=== PATIENT | male | born 1965 | race Caucasian/White ===

== ENCOUNTER → 2017-12-06 14:21 | Outpatient (CLI) | payer OTHER, SELFPAY ==
[2017-12-06 17:38] LABS: Prostate Specific Antigen < 0.064 ng/mL (0.10-4.00)
== END ==
PROVIDERS: Family Provider Family Medicine; PCP Family Medicine; Visit Provider Urology
DX: Z85.46 Personal history of malignant neoplasm of prostate (principal)
CPT/HCPCS: 36415; 84153

== ENCOUNTER → 2018-01-10 15:24 | Outpatient (CLI) | payer OTHER, SELFPAY ==
--- NOTE | 2018-01-10 | DI.MRI.S_ITS ---
PROCEDURE: MR CERVICAL SPINE WO CON INDICATIONS: CERVICAL RADICULAPOTHY TECHNIQUE: Noncontrast sagittal T1 spin echo and T2 fast spin echo, sagittal STIR, foraminal oblique sagittal T2 fast spin echo, and axial gradient echo or T2 fast spin echo through the cervical spine. COMPARISON: [facility], [place], BONE SCAN WHOLE BODY, 08/27/2013, 12:42. [facility], , CERVICAL SPINE 2 OR 3 VIEWS, 08/08/2017, 14:15. FINDINGS: Image quality: Mild motion artifacts. Alignment and Curvature: There is normal bony alignment. Bone Marrow: There are degenerative endplate signal changes and scattered in cervical spine. Spinal Cord: Visualized spinal cord has normal size and signal. No cerebellar tonsillar herniation. Paraspinous Soft Tissues: No paravertebral masses. Prevertebral soft tissues are normal in thickness. C2-C3: Preserved disc height and mild disc desiccation. There is broad posterior disc bulge. Uncovertebral hypertrophy. The central canal is patent. No foraminal stenosis. C3-C4: Mild loss of disc height and mild disc desiccation. There is broad posterior disc bulge. Uncovertebral hypertrophy, more pronounced on the right. The central canal is mildly narrowed. Moderate right foraminal stenosis. No left foraminal stenosis. . C4-C5: Mild loss of disc height and mild disc desiccation. There is broad posterior disc bulge and disc osteophyte complex. Uncovertebral hypertrophy. The central canal is mildly narrowed. Moderate bilateral right foraminal stenosis. C5-C6: Mild loss of disc height and mild disc desiccation. There is broad posterior disc bulge and disc osteophyte complex. Uncovertebral hypertrophy. Mild bilateral facet arthropathy. The central canal is mildly narrowed. Moderate to severe bilateral right foraminal stenosis. C6-C7: Mild loss of disc height and mild disc desiccation. There is broad posterior disc bulge and disc osteophyte complex. Uncovertebral hypertrophy. The central canal is patent. Moderate to severe bilateral right foraminal stenosis. C7-T1: Normal appearance. IMPRESSION: 1. Multilevel degenerative disc disease and facet arthropathy as described. 2. Mild central canal stenosis at several levels. 3. Multilevel foraminal stenoses as described. Dictated by: Jesusita Atkinson M.D. on 01/10/2018 at 16:58 Approved by: Jesusita Atkinson M.D. on 01/10/2018 at 17:06
== END ==
PROVIDERS: Family Provider Family Medicine; PCP Family Medicine; Visit Provider Otolaryngology
DX: M50.11 Cervical disc disorder with radiculopathy, high cervical region (principal); M48.02 Spinal stenosis, cervical region
CPT/HCPCS: 72141

== ENCOUNTER → 2018-03-29 11:02 | Outpatient (CLI) | payer OTHER, SELFPAY ==
[2018-03-29 12:06] LABS: Add Manual Diff / Slide Review NO; Basophils Percent Auto 0.7 % (0-2); Hematocrit 43.2 % (41-53); Hemoglobin 14.7 g/dL (13.5-17.5); Lymphocytes Percent Auto 29.8 % (25-40); Mean Corpuscular Volume 94.1 fL (80-100); Monocytes Percent Auto 8.8 % (3-14); Neutrophils Absolute Auto 3800 /uL (3000-5900); Neutrophils Percent Auto 56.7 % (50-75); Platelet Count 183 X10^3/uL (150-400); Red Blood Cell Count 4.59 X10^6/uL (4.5-5.9); Red Cell Distribution Width 12.8 % (11.6-14.8); White Blood Cell Count 6.8 X10^3/uL (4.5-11.0)
[2018-03-29 12:20] LABS: Alanine Aminotransferase 41 IU/L (21-72); Albumin 4.3 g/dL (3.5-5.0); Albumin Globulin Ratio 1.7 (1.0-2.8); Alkaline Phosphatase 53 U/L (38-126); Aspartate Aminotransferase 29 IU/L (17-59); BUN Creatinine Ratio 13.1 (6-22); Bilirubin Total 0.6 mg/dL (0.2-1.3); Blood Urea Nitrogen 17 mg/dL (9-20); Calcium 9.8 mg/dL (8.4-10.2); Carbon Dioxide 31 mmol/L (22-32); Chloride 103 mmol/L (98-107); Cholesterol 155 mg/dL (140-199); Globulin 2.5 g/dL (1.7-4.1); Glucose 96 mg/dL (70-100); HDL Cholesterol 60 mg/dL (40-60); HEMOLYSIS < 15 (0-50); LDL Cholesterol Calculated 76 mg/dL (<100); Potassium 4.4 mmol/L (3.4-5.1); Sodium 144 mmol/L (137-145); Total Protein 6.8 g/dL (6.3-8.2); Triglycerides 93 mg/dL (35-150)
[2018-03-29 12:49] LABS: Thyroid Stimulating Hormone 5.33 uIU/mL (0.47-4.68)
== END ==
PROVIDERS: Family Provider Urology; PCP Family Medicine; Visit Provider Family Medicine
DX: I10 Essential (primary) hypertension (principal); Z85.46 Personal history of malignant neoplasm of prostate
CPT/HCPCS: 36415; 80053; 80061; 84443; 85025

== ENCOUNTER → 2018-06-05 11:24 | Outpatient (CLI) | payer OTHER, SELFPAY ==
[2018-06-05 12:53] LABS: Free T3, Triiodothyronine Free 3.64 pg/mL (2.77-5.27); Free T4, Direct Thyroxine 0.86 ng/dL (0.78-2.19)
[2018-06-05 13:07] LABS: Prostate Specific Antigen < 0.064 ng/mL (0.10-4.00)
[2018-06-05 13:07] LABS: Thyroid Stimulating Hormone 3.48 uIU/mL (0.47-4.68)
== END ==
PROVIDERS: PCP Family Medicine; Visit Provider Urology
DX: Z85.46 Personal history of malignant neoplasm of prostate (principal); R79.89 Other specified abnormal findings of blood chemistry
CPT/HCPCS: 36415; 84153; 84439; 84443; 84481

== ENCOUNTER 2018-07-18 11:42 | Day surgery (SDC) | payer OTHER, SELFPAY ==
--- NOTE | 2018-07-18 | PATH_ITS ---
[facility] Accession Number: [id number] . 01 Material submitted: . PART A: RIGHT COLON POLYP AT 85CM PART B: SIGMOID POLYP AT 20CM X2 . 02 Diagnosis: A. Right Colon, Polyp at 85 cm, Biopsy: Sessile serrated adenoma. . B. Sigmoid Colon, Polyp at 20 cm x2, Biopsies: Hyperplastic polyps. MRV/07/19/2018 . 02 Electronically signed: . Vickie Velasco MD, Pathologist NPI- [id number] . 01 Gross description: . Received two formalin-filled containers, both labeled with the patient's name: . A. In a container labeled right colon polyp at 85 cm, are two fragments of tissue which range in size from 0.2 cm to 0.4 cm. The specimen is entirely submitted in cassette A. B. In a container labeled sigmoid polyp at 20 cm x2, are two fragments of tissue which range in size from 0.3 cm to 0.4 cm. The specimen is entirely submitted in cassette B. ([id number]) /FRR . 02 Pathologist provided ICD-10: D12.6 . 02 CPT . 476511, [id number] Performed at: [address] [facility] [address], [place], [place] [id number] MD Ulices Arana MD Phone: [phone] Performed at: 02 [facility] [address] [place], [place] [id number] MD Vickie Velasco MD Phone: [phone]
[2018-07-18 12:05] VITALS: BP 125/85; PULSE 77; RESP 16; TEMP 36.6; O2SAT 97; BMI 27.6
[2018-07-18] MEDS: SODIUM CHLORIDE 0.9% 1,000 ML 200 ML IV (12:14)
--- NOTE | 2018-07-18 12:31 | P.HP_ITS ---
History of Present Illness Date Patient Seen: 07/18/18 Time Patient Seen: 12:29 Chief complaint: colonoscopy [id number] Narrative: 53-year-old male with personal history of colon polyps whose last endoscopy was approximately 6 years ago. He presents now for surveillance. On further history today he denies any recent gastrointestinal symptoms. No nausea , vomiting, abdominal pain, unintended weight loss, change in bowel habits, diarrhea, constipation, melena, hematochezia, or bright red blood per rectum. Patient History Medical History Colon polyps (Chronic ~2009) Elevated PSA (Chronic ~2012) Meralgia paresthetica (Chronic) Prostate cancer (Chronic ~2013) Seasonal allergies (Chronic) Surgical History Anesthesia (Resolved) History of vasectomy (Resolved) Status post radical cystoprostatectomy (10/13/13) Family & Social History Family History: Reviewed 07/18/18 by Montez Sanz MD Social History: household members spouse Tobacco & Substance use: Smoking Status Current some day smoker Meds Home Medications Medication Instructions Recorded Confirmed Type temazepam 30 mg capsule 30 mg PO .HSP #30 cap 05/13/18 07/18/18 Rx gabapentin 100 mg PO DAILY 07/18/18 07/18/18 History Allergies Allergy/AdvReac Type Severity Reaction Status Date / Time Penicillins [PENICILLINS] Allergy Mild Verified 04/12/18 16:00 Review of Systems Review of Systems All systems reviewed & are unremarkable except as noted in HPI and below Exam Vital Signs (past 8 hours): - 07/18/18 12:05 Temperature 97.9 F Pulse Rate 77 Respiratory Rate 16 Blood Pressure 125/85 Pulse Oximetry 97 Oxygen Delivery Method Room Air Narrative Exam Narrative: Well-nourished well-developed male in no acute distress. Alert oriented x3 Sclera nonicteric Regular rate and rhythm Abdomen soft, nondistended, nontender Extremities show no clubbing or cyanosis Objective Labs Labs: No recent laboratory or radiographic studies for review Assessment & Plan Plan: Assessment/Plan Narrative: 53-year-old male with personal history of colon polyps requiring colorectal surveillance for such. I recommended colonoscopy. Technical details of the procedure were explained. Risks, benefits, alternatives were discussed. Risks including but not limited to sedation, aspiration, bleeding, pain, missed lesion , incomplete examination, need for further radiographic studies, colonic perforation, need for major abdominal surgery, and all attendant risks of major surgery were discussed in detail. All questions were answered to his satisfaction, and he voiced understanding. Consent was placed on the chart. We will proceed as above.
--- NOTE | 2018-07-18 12:31 | PM.PREOP ---
Pre-operative Note Interval Note History & Physical reviewed/Exam performed by Physician: Yes Changes to H&P: No H&P completed within 30 days and has changed as indicated here:: Patient seen and examined today. History and physical examination documented and placed on the chart. Obviously no changes in the last 60 min. Proceed with colonoscopy today as planned. ASA Class (for procedural sedation): II
[2018-07-18] MEDS: MIDAZOLAM 5 MG/5 ML VIAL IV (13:08)
[2018-07-18] MEDS: fentaNYL 250 MCG/5 ML INJ IV (13:08)
--- NOTE | 2018-07-18 13:17 | PM.OP.ENDO ---
Operative Date/Time/Diagnoses Date of procedure: 07/18/18 Time of procedure: 13:17 Pre-op diagnosis: Personal history of colon polyps Post-op diagnosis: other (Colon polyps and pandiverticulosis) Procedure & Clinicians Study performed: 1. Sedation per surgeon 2. Colonoscopy with cold forceps polypectomies Same procedure as scheduled: Yes Indications: 53-year-old male with personal history of colon polyps who last underwent colonoscopy 6 years ago. He requires surveillance. Colonoscopy is once again recommended. Surgeon: Montez Sanz Procedure Notes SCOAP/Timeout: Yes Procedure in detail: After obtaining informed consent, the patient was brought to the GI suite and placed in the left lateral decubitus position on the examination table. After placement of appropriate monitors, the patient was given incremental doses of Versed and Fentanyl until an appropriate level of sedation was achieved. A time out was held per SCOAP protocol. A digital rectal examination was performed and did not reveal any masses or obstructing lesions. The colonoscope was gently passed into the patient's anus and the entire colon navigated to the level of the cecum with minimal difficulty. Once in the cecum, the scope was withdrawn being sure to go before and beyond all mucosal folds and prominences and get an excellent examination. The findings are noted above. At the level of the rectal vault, the scope was retroflexed and the internal anal canal was examined. The scope was straightened and air aspirated from the colon. The instrument was removed from the patient's body and the procedure was concluded. The patient was allowed to awaken from sedation without difficulty and taken to the post-anesthesia care unit in good condition. Scope withdrawal time: 8:20 min Sedation minutes: 12 Findings: diverticulosis and polyp Specimen(s): other (1. Right colon polyp at 85 cm 2. Sigmoid colon polyps x2 at 20 cm) Complications: none Recommendations: Colonscopy in 5 years, High fiber diet and Will call with biopsy results Plan for aftercare: 1. Discharge home Follow up: as needed Disposition: PACU
[2018-07-18 13:20] VITALS: BP 130/79; PULSE 74; RESP 15; TEMP 36.3; O2SAT 93
[2018-07-18 13:50] VITALS: BP 114/74; PULSE 68; RESP 15; TEMP 36.2; O2SAT 94
== END 2018-07-18 14:05 | disposition home or self-care (01) ==
PROVIDERS: Family Provider Urology; PCP Family Medicine; Visit Provider Surgery
PROC: 0DJD8ZZ Inspection of Lower Intestinal Tract, Via Natural or Artificial Opening Endoscopic (ICD-10-PCS; CPT 45378; principal; 2018-07-18 13:00)
DX: Z86.010 Personal history of colon polyps (principal); K57.30 Diverticulosis of large intestine without perforation or abscess without bleeding; D12.5 Benign neoplasm of sigmoid colon; D12.6 Benign neoplasm of colon, unspecified; F17.210 Nicotine dependence, cigarettes, uncomplicated; G57.10 Meralgia paresthetica, unspecified lower limb
CPT/HCPCS: 45380; 99152; J2250; J3010

== ENCOUNTER → 2018-10-02 15:39 | Outpatient (CLI) | payer OTHER, SELFPAY ==
--- NOTE | 2018-10-02 15:42 | DI.RAD.S_ITS ---
PROCEDURE: XR HAND LT MIN 3V INDICATIONS: Pain. TECHNIQUE: 3 views of the hand(s) acquired. COMPARISON: None. FINDINGS: Bones: No fractures or dislocations. Carpal bones are normally aligned. No suspicious bony lesions. There is mild degenerative change of the first carpometacarpal joint. Soft tissues: No suspicious soft tissue calcifications. IMPRESSION: Mild degenerative changes at the left first carpometacarpal joint. No acute fracture or dislocation of the left hand identified. Consider followup radiographs in 7-10 days if there is continued clinical concern. Dictated by: Julio C Galvez M.D. on 10/02/2018 at 16:55 Approved by: Julio C Gavlez M.D. on 10/02/2018 at 16:59
--- NOTE | 2018-10-02 15:42 | DI.RAD.S_ITS ---
PROCEDURE: XR SACRUM COCCYX MIN 2V INDICATIONS: pain TECHNIQUE: 3 views of the sacrum and coccyx acquired. COMPARISON: , MR, PELVIS W&WO CONTRAST, 03/22/2017, 18:06. FINDINGS: Bones: No fractures or dislocations. There is mild degenerative change of the left lateral acetabulum. There is multilevel facet arthropathy of the imaged lower lumbar spine. Soft tissues: Visualized bowel gas pattern is nonobstructive. Multiple linear radiopaque densities projecting over the lower pelvis, most consistent with prior prostate radiation seed therapy or postsurgical change. IMPRESSION: 1. No acute osseous abnormality of the imaged sacrum and coccyx. Consider followup radiographs in 7-10 days if there is continued clinical concern. 2. Multiple linear radiopaque densities projecting over the lower pelvis, most consistent with prior prostate radiation seed therapy or postsurgical change. Dictated by: Julio C Galvez M.D. on 10/02/2018 at 16:59 Approved by: Julio C Galvez M.D. on 10/02/2018 at 17:04
== END ==
PROVIDERS: PCP Family Medicine; Visit Provider Family Medicine
DX: M79.642 Pain in left hand (principal); M18.12 Unilateral primary osteoarthritis of first carpometacarpal joint, left hand; M16.12 Unilateral primary osteoarthritis, left hip; M47.816 Spondylosis without myelopathy or radiculopathy, lumbar region
CPT/HCPCS: 72220; 73130

== ENCOUNTER → 2018-10-10 18:45 | Outpatient (CLI) | payer OTHER, SELFPAY ==
--- NOTE | 2018-10-10 18:47 | DI.MRI.S_ITS ---
PROCEDURE: MR HAND LT WO CON INDICATIONS: pain TECHNIQUE: Noncontrast oblique coronal T1 spin echo and T2 fast spin echo with fat saturation, axial and sagittal T2 fast spin echo with fat saturation, through the thumb. COMPARISON: [facility], [place], XR HAND LT MIN 3V, 10/02/2018, 15:46. FINDINGS: Image quality: Diagnostic. Bones: No acute fracture, dislocation, or suspicious osseous lesion is identified involving the osseous structures of the left hand. There are mild/moderate degenerative changes present involving the basal joint of the thumb. Additional degenerative changes of the wrist are noted to be mild in nature. No substantial joint effusions are present. However, there may be a very small effusion evident involving the 1st carpometacarpal joint. Tendons: There is a thickening and increased signal identified involving the extensor tendons of the 1st compartment with mild peritendinous edema. No fluid is contained within their tendon sheaths. Mild increased signal is noted involving the extensor carpi ulnaris tendon at the tip of the ulnar styloid process. Otherwise, the remainder of the extensor tendons are unremarkable. The flexor tendons appear to be within normal limits. However, there is slight increased signal identified involving the flexor tendon sheaths of the 1st and 2nd digits. Slight convex bulge of the carpal tunnel is evident. Other soft tissues: No soft tissue masses or drainable fluid collections are evident. Areas of subcutaneous edema are noted about the base of the thumb and near the ulnar styloid process. The ulnar nerve is unremarkable as it passes through Guyon's canal. The median nerve is within normal limits within the carpal tunnel. The scapholunate and lunotriquetral ligaments are grossly unremarkable. There is irregularity at the radial attachment of the triangular fibrocartilage disc. This may represent a tear. No large ganglion cysts are evident. No significant atrophy of the intrinsic muscles of the hand are appreciated. Edema involving the thenar muscles to a small degree and the 1st dorsal interossei muscle. IMPRESSION: 1. Mild to moderate degenerative changes involving the 1st carpometacarpal joint with an associated small joint effusion. 2. Tendinopathy involving the 1st extensor compartment. Please correlate clinically for de Quervain's tenosynovitis. 3. Subtle edema involving the thenar muscles and the 1st dorsal interossei muscle may represent a muscle strain. An urgent process is felt to be less likely. 4. Mild extensor carpi ulnaris tendinopathy. 5. Probable small perforating tear involving the radial margin of the triangular fibrocartilage disc. Dictated by: Estuardo Villarreal M.D. on 10/11/2018 at 9:12 Approved by: Estuardo Villarreal M.D. on 10/11/2018 at 9:23
--- NOTE | 2018-10-10 18:47 | DI.MRI.S_ITS ---
PROCEDURE: MR LUMBAR SPINE WO CON INDICATIONS: pain TECHNIQUE: Noncontrast sagittal T1 spin echo and T2 fast echo, sagittal STIR, axial T1 and T2 fast spin echo through the lumbar spine. In cases with scoliosis, additional coronal T2 fast spin echo may be performed. COMPARISON: [facility], MR, L-SPINE WITHOUT CONTRAST, 05/16/2016, 8:41. [facility], MR, L-SPINE WITHOUT CONTRAST, 05/30/2011, 8:51. FINDINGS: Image quality: Excellent. Alignment and Curvature: There is normal bony alignment. Bone Marrow: Marrow is of normal overall signal. No acute vertebral body compression fractures. Spinal Cord: Conus medullaris terminates at the L1 level. Visualized cord demonstrates normal signal and size. Paraspinous Soft Tissues: No paravertebral masses. L1-L2: Normal appearance except for minimal disc height reduction and desiccation. L2-L3: Normal appearance except for minimal to mild disc height reduction and disc desiccation. L3-L4: Normal appearance except for mild degenerative facet osteoarthritis slightly greater on the right than the left, previously present. L4-L5: There is a minimal degree of degenerative disc reduction and desiccation. Facet osteoarthritis is mild and slightly greater on the left than the right with slight foraminal stenosis and no nerve root impingement visualized. No oil changer time L5-S1: Normal appearance except for a slight degree of facet degeneration without associated spinal or foraminal stenosis. IMPRESSION: The degenerative disc disease and facet osteoarthritis along the lumbosacral line appears to mild in severity without appreciable worsening from the comparison study from 05/16/16, and no disc herniation has developed. A source of new pain is not seen. No significant spinal or foraminal stenosis is found. Dictated by: Gurpreet Villa M.D. on 10/11/2018 at 8:28 Approved by: Gurpreet Villa M.D. on 10/11/2018 at 8:47
== END ==
PROVIDERS: PCP Family Medicine; Visit Provider Family Medicine
DX: M53.3 Sacrococcygeal disorders, not elsewhere classified (principal); M79.642 Pain in left hand; M18.12 Unilateral primary osteoarthritis of first carpometacarpal joint, left hand; M25.442 Effusion, left hand; M67.942 Unspecified disorder of synovium and tendon, left hand; M51.37 Other intervertebral disc degeneration, lumbosacral region; M47.817 Spondylosis without myelopathy or radiculopathy, lumbosacral region
CPT/HCPCS: 72148; 73218

== ENCOUNTER → 2018-11-11 15:59 | Outpatient (CLI) | payer OTHER, SELFPAY ==
--- NOTE | 2018-11-11 16:01 | DI.MRI.S_ITS ---
PROCEDURE: MR PELVIS WO CON INDICATIONS: pain in the tailbone TECHNIQUE: Noncontrast axial and coronal T1 spin echo and STIR through the lumbosacral plexus region. Optional contrast may be given, followed by axial and coronal T1 spin echo with fat saturation through the sacral plexus. COMPARISON: None. FINDINGS: Image quality: Excellent. Lumbosacral plexus: Superior to the piriformis muscles, the pre-plexal structures appear normal, including the lumbosacral trunk and S1 root. Just anterior to the piriformis muscles, the sacral plexus proper demonstrates normal morphology (lumbosacral trunk, S1 to S3 nerve roots). Inferior to the piriformis muscles, the sciatic nerves appear normal. Soft tissues: The piriformis muscles appear symmetric in size. No presacral masses. Rectum appears normal in caliber and wall thickness. No pathologic free pelvic fluid. No visualized adenopathy by size criteria. Bones: Marrow is normal in overall signal. IMPRESSION: A source of sacrococcygeal pain is not identified. A mass or inflammatory process involving the lumbosacral plexus or the presacral space is not seen. The rectum and adjacent sigmoid colon is well visualized and appears free of mass lesion. Dictated by: Gurpreet Villa M.D. on 11/11/2018 at 17:11 Approved by: Gurpreet Villa M.D. on 11/11/2018 at 17:12
== END ==
PROVIDERS: PCP Family Medicine; Visit Provider Family Medicine
DX: M53.3 Sacrococcygeal disorders, not elsewhere classified (principal)
CPT/HCPCS: 72195

== ENCOUNTER → 2018-11-19 10:21 | Outpatient (CLI) | payer OTHER, SELFPAY ==
[2018-11-19 11:57] LABS: Add Manual Diff / Slide Review NO; Basophils Absolute Auto 100 /uL (0-100); Basophils Percent Auto 0.9 % (0-2); Eosinophils Absolute Auto 200 /uL (0-450); Eosinophils Percent Auto 3.3 % (2-4); Hematocrit 44.7 % (41-53); Hemoglobin 15.1 g/dL (13.5-17.5); Lymphocytes Absolute Auto 1600 /uL (1100-4500); Lymphocytes Percent Auto 27.6 % (25-40); Mean Corpuscular HGB Conc 33.7 % (30-36); Mean Corpuscular Hemoglobin 32.2 PG (26-34); Mean Corpuscular Volume 95.5 fL (80-100); Monocytes Absolute Auto 500 /uL (0-900); Neutrophils Absolute Auto 3400 /uL (1500-7000); Neutrophils Percent Auto 60.2 % (50-75); Platelet Count 193 X10^3/uL (150-400); Red Blood Cell Count 4.67 X10^6/uL (4.5-5.9); Red Cell Distribution Width 13.4 % (11.6-14.8); White Blood Cell Count 5.7 X10^3/uL (4.5-11.0)
[2018-11-19 12:07] LABS: BUN Creatinine Ratio 13.8 (6-22); Blood Urea Nitrogen 18 mg/dL (9-20); Calcium 9.7 mg/dL (8.4-10.2); Carbon Dioxide 32 mmol/L (22-32); Chloride 100 mmol/L (98-107); Glucose 87 mg/dL (70-100); HEMOLYSIS < 15 (0-50); Potassium 4.4 mmol/L (3.4-5.1); Sodium 140 mmol/L (137-145)
== END ==
PROVIDERS: Family Provider Family Medicine; PCP Family Medicine; Visit Provider Physician Assistant
DX: Z01.818 Encounter for other preprocedural examination (principal); Z01.812 Encounter for preprocedural laboratory examination
CPT/HCPCS: 36415; 80048; 85025; 93005; 93010

== ENCOUNTER → 2019-01-03 10:55 | Outpatient (CLI) | payer OTHER, SELFPAY ==
[2019-01-03 13:23] LABS: Prostate Specific Antigen < 0.064 ng/mL (0.10-4.00)
== END ==
PROVIDERS: PCP Nurse Practitioner Adult Health; Visit Provider Urology
DX: Z85.46 Personal history of malignant neoplasm of prostate (principal)
CPT/HCPCS: 36415; 84153

== ENCOUNTER → 2019-05-27 09:08 | Outpatient (CLI) | payer OTHER, SELFPAY ==
[2019-05-27 10:40] LABS: Add Manual Diff / Slide Review NO; Basophils Absolute Auto 0 /uL (0-100); Basophils Percent Auto 0.7 % (0-2); Eosinophils Absolute Auto 200 /uL (0-450); Eosinophils Percent Auto 3.5 % (2-4); Hematocrit 43.4 % (41-53); Hemoglobin 14.8 g/dL (13.5-17.5); Lymphocytes Absolute Auto 1400 /uL (1100-4500); Lymphocytes Percent Auto 22.6 % (25-40); Mean Corpuscular HGB Conc 34.1 % (30-36); Mean Corpuscular Hemoglobin 32.4 PG (26-34); Monocytes Absolute Auto 500 /uL (0-900); Monocytes Percent Auto 7.3 % (3-14); Neutrophils Absolute Auto 4100 /uL (1500-7000); Neutrophils Percent Auto 65.9 % (50-75); Platelet Count 200 X10^3/uL (150-400); Red Blood Cell Count 4.57 X10^6/uL (4.5-5.9); White Blood Cell Count 6.2 X10^3/uL (4.5-11.0)
[2019-05-27 10:44] LABS: Alanine Aminotransferase 32 IU/L (<50); Albumin 4.5 g/dL (3.5-5.0); Albumin Globulin Ratio 1.6 (1.0-2.8); Alkaline Phosphatase 67 U/L (38-126); Aspartate Aminotransferase 29 IU/L (17-59); BUN Creatinine Ratio 16.9 (6-22); Bilirubin Total 0.3 mg/dL (0.2-1.3); Blood Urea Nitrogen 22 mg/dL (9-20); Calcium 9.5 mg/dL (8.4-10.2); Carbon Dioxide 30 mmol/L (22-32); Chloride 105 mmol/L (98-107); Cholesterol 173 mg/dL (140-199); Estimated Glomerular Filt Rate 57.7 mL/min (>60); Globulin 2.8 g/dL (1.7-4.1); Glucose 101 mg/dL (70-100); HDL Cholesterol 46 mg/dL (40-60); HEMOLYSIS < 15 (0-50); LDL Cholesterol Calculated 103 mg/dL (<100); Potassium 4.7 mmol/L (3.4-5.1); Sodium 143 mmol/L (137-145); Total Protein 7.3 g/dL (6.3-8.2); Triglycerides 120 mg/dL (35-150)
[2019-05-27 11:19] LABS: Prostate Specific Antigen < 0.064 ng/mL (0.10-4.00)
[2019-05-27 11:49] LABS: HIV 1 & 2 Ab/Ag 4th Gen Combo NEGATIVE (NEGATIVE)
== END ==
PROVIDERS: PCP Family Medicine; Visit Provider Family Medicine
DX: Z13.220 Encounter for screening for lipoid disorders (principal); Z85.46 Personal history of malignant neoplasm of prostate; Z11.4 Encounter for screening for human immunodeficiency virus [HIV]; I10 Essential (primary) hypertension
CPT/HCPCS: 36415; 80053; 80061; 84153; 84403; 85025; 87389

== ENCOUNTER → 2019-06-16 11:21 | Outpatient (CLI) | payer OTHER, SELFPAY ==
[2019-06-16 13:06] LABS: Free T3, Triiodothyronine Free 3.59 pg/mL (2.77-5.27); Free T4, Direct Thyroxine 0.88 ng/dL (0.78-2.19)
[2019-06-16 13:20] LABS: Thyroid Stimulating Hormone 2.14 uIU/mL (0.47-4.68)
== END ==
PROVIDERS: PCP Family Medicine; Visit Provider Family Medicine
DX: R53.83 Other fatigue (principal)
CPT/HCPCS: 36415; 84439; 84443; 84481

== ENCOUNTER 2019-07-07 08:15 | Outpatient (RCR) | payer OTHER, SELFPAY ==
--- NOTE | 2019-04-01 15:52 | PT.OPPOC ---
Current Diagnoses Unilateral primary osteoarthritis of first carpometacarpal joint, right hand (04/01/19) Unilateral primary osteoarthritis of first carpometacarpal joint, left hand (04/01/19) Visit Care Team Role Provider Type VALERY Antoine Primary Care Provider Non-Staff Specialty: Family Practice Address: [address] [place] [address], [address], [place], [address] Email: Bryan Cintron MD Attending Provider Physician Specialty: Orthopedic Surgery Address: [address] [place] [address], [place], [address] Email: [email or web address] Plan Of Care PT-OP-T Assessment and Plan Start: 04/01/19 12:15 Freq: Status: Active Protocol: Document 04/01/19 12:46 [facility] (Rec: 04/01/19 13:38 [facility] [id number]) Physical Therapy Assessment Rehab Potential Rehabilitation Potential Good Evaluation Complexity Number of Personal Factors/Comorbidities 3 or More Number of Body Systems Impaired 4 or More Clinical Presentation at Evaluation Evolving Impairments Impairments Activity Tolerance,Edema,Pain, ROM,Strength Goals Four Impairment Swelling in L Thenar [place] Short Term Goal (STG) Pt educated in joint protection and edema management techniques. STG Duration 04/05/19 Three Impairment Decreased L hand jd edwards Custodial Goal (LTG) Pt will demonstrate normal jd edwards strength without pain. LTG Duration 05/13/19 Two Impairment Constant L thumb pain hindering activity tolerance. Short Term Goal (STG) Decrease pain by 50% (1/10 at rest & 2-3/10 with palpation). STG Duration 04/29/19 Surgical Brace Maker Goal (LTG) Eliminate L thumb pain at rest and mild discomfort (1-2/10) with weightbearing activities. LTG Duration 05/13/19 One Impairment Lacks appropriate self care program Surgical Brace Maker Goal (LTG) Pt will be independent with a self care HEP. LTG Duration 05/27/19 Assessment Summary Assessment Pt presents with soft tissue dysfunction of the L Thenar [place], 1st extensor compartment, 1st dorsal interossei muscle, extensor carpi ulnaris tendon and soft tissue at the snuff box. He has some indication of de Quervain's tenosynovitis. He has mechanical dysfunction of the L CMC joint with pain. Swelling is visibly present with pain on palpation of the soft tissue and when pressure is applied at the thumb CMC joint. His wrist mobility is slightly limited with flex/ext . The pt will benefit from skilled physical therapy to decrease swelling and therapeutic exercise to improve CMC joint stability and reduce pain. Pt will require use of a custom thumb splint or [id number] splint to help minimize stress at the joint. Physical Therapy Plan Frequency and Duration Frequency of Treatment 2x/Week Plan of Care Start Date 04/01/19 Plan of Care End Date 05/27/19 Therapeutic Interventions Therapeutic Interventions Home Exercise Program,Joint Mobilizations,Manual Therapy, Patient/Caregiver Education, Self-Care/Home Management,Soft Tissue Mobilization,Taping, Therapeutic Exercises Modalities Cold Pack/Ice Massage,Hot Packs,Paraffin Bath,Ultrasound Next Visit Focus/Plan Next Note Type Treatment Note Next Visit Plan Discuss joint protection ( minimize thumb ext and use, nighttime care), edema management (cryotherapy, thumb splint, isotoner gloves). Improve L thumb and wrist flex /ext mobility, strengthen L hand, discuss nighttime positioning, modalities (US to thenar eminence, paraffin dip , cryotherapy), discuss splinting ([id number] vs custom splints). Assess for DeQuervain's tendonitis. Plan of Care Dates Plan of Care Start Date 04/01/19 Plan of Care End Date 05/27/19
--- NOTE | 2019-04-01 16:20 | PT.OPPOC ---
Current Diagnoses Unilateral primary osteoarthritis of first carpometacarpal joint, right hand (04/01/19) Unilateral primary osteoarthritis of first carpometacarpal joint, left hand (04/01/19) Visit Care Team Role Provider Type VALERY Antoine Primary Care Provider Non-Staff Specialty: Family Practice Address: [address] [place] [address], [address], [place], [address] Email: Bryan Cintron MD Attending Provider Physician Specialty: Orthopedic Surgery Address: [address] [place] [address], [place], [address] Email: [email or web address] Plan Of Care PT-OP-T Assessment and Plan Start: 04/01/19 12:15 Freq: Status: Active Protocol: Document 04/01/19 12:46 [facility] (Rec: 04/01/19 13:38 [facility] [id number]) Physical Therapy Assessment Rehab Potential Rehabilitation Potential Good Evaluation Complexity Number of Personal Factors/Comorbidities 3 or More Number of Body Systems Impaired 4 or More Clinical Presentation at Evaluation Evolving Impairments Impairments Activity Tolerance,Edema,Pain, ROM,Strength Goals Four Impairment Swelling in L Thenar [place] Short Term Goal (STG) Pt educated in joint protection and edema management techniques. STG Duration 04/05/19 Three Impairment Decreased L hand reconciliation clerk Nursing Home Goal (LTG) Pt will demonstrate normal reconciliation clerk strength without pain. LTG Duration 05/13/19 Two Impairment Constant L thumb pain hindering activity tolerance. Short Term Goal (STG) Decrease pain by 50% (1/10 at rest & 2-3/10 with palpation). STG Duration 04/29/19 Party Host/Hostess Goal (LTG) Eliminate L thumb pain at rest and mild discomfort (1-2/10) with weightbearing activities. LTG Duration 05/13/19 One Impairment Lacks appropriate self care program Party Host/Hostess Goal (LTG) Pt will be independent with a self care HEP. LTG Duration 05/27/19 Assessment Summary Assessment Pt presents with soft tissue dysfunction of the L Thenar [place], 1st extensor compartment, 1st dorsal interossei muscle, extensor carpi ulnaris tendon and soft tissue at the snuff box. He has some indication of de Quervain's tenosynovitis. He has mechanical dysfunction of the L CMC joint with pain. Swelling is visibly present with pain on palpation of the soft tissue and when pressure is applied at the thumb CMC joint. His wrist mobility is slightly limited with flex/ext . The pt will benefit from skilled physical therapy to decrease swelling and therapeutic exercise to improve CMC joint stability and reduce pain. Pt will require use of a custom thumb splint or [id number] splint to help minimize stress at the joint. Physical Therapy Plan Frequency and Duration Frequency of Treatment 2x/Week Plan of Care Start Date 04/01/19 Plan of Care End Date 05/27/19 Therapeutic Interventions Therapeutic Interventions Home Exercise Program,Joint Mobilizations,Manual Therapy, Patient/Caregiver Education, Self-Care/Home Management,Soft Tissue Mobilization,Taping, Therapeutic Exercises Modalities Cold Pack/Ice Massage,Hot Packs,Paraffin Bath,Ultrasound Next Visit Focus/Plan Next Note Type Treatment Note Next Visit Plan Discuss joint protection ( minimize thumb ext and use, nighttime care), edema management (cryotherapy, thumb splint, isotoner gloves). Improve L thumb and wrist flex /ext mobility, strengthen L hand, discuss nighttime positioning, modalities (US to thenar eminence, paraffin dip , cryotherapy), discuss splinting ([id number] vs custom splints). Assess for DeQuervain's tendonitis. Plan of Care Dates Plan of Care Start Date 04/01/19 Plan of Care End Date 05/27/19
--- NOTE | 2019-04-01 16:21 | PT.OIE ---
Current Diagnoses Unilateral primary osteoarthritis of first carpometacarpal joint, right hand (04/01/19) Unilateral primary osteoarthritis of first carpometacarpal joint, left hand (04/01/19) Past Medical History (Last Reviewed 07/18/18 @ 12:30 by Montez Sanz MD) Colon polyps (Chronic ~2009) Elevated PSA (Chronic ~2012) Meralgia paresthetica (Chronic) Prostate cancer (Chronic ~2013) Seasonal allergies (Chronic) Past Surgical History (Last Reviewed 07/18/18 @ 12:30 by Montez Sanz MD) Anesthesia (Resolved) History of vasectomy (Resolved) Status post radical cystoprostatectomy (10/13/13) Visit Care Team Role Provider Type VALERY Antoine Primary Care Provider Non-Staff Specialty: Family Practice Address: [address] [place] [address], [facility], [place], [address] Email: Bryan Cintron MD Attending Provider Physician Specialty: Orthopedic Surgery Address: [address] [place] [address], [address] Email: [email or web address] [facility] Initial Evaluation PT-OP-A Visit Information Start: 04/01/19 12:15 Freq: Status: Active Protocol: Document 04/01/19 12:46 LRN (Rec: 04/01/19 13:38 LRN [id number]) Out-Patient Physical Therapy Visit Information Visit Information Visit Type Initial Evaluation Visit Start Time 12:46 Visit Stop Time 13:38 Total Visit Minutes 52 Visit Number 1 Number of SOLAR LAB TECHNICIAN Visits 0 Evaluation Information Evaluation Date 04/01/19 Precautions Precautions Lifting restriction: 20-40# Recent Cervical surgery with spacers placed. PT-OP-B Current Condition Start: 04/01/19 12:15 Freq: Status: Active Protocol: Document 04/01/19 12:46 LRN (Rec: 04/01/19 13:38 LRN [id number]) Current Condition History of Current Condition Onset Date 1 month ago Current Complaints L thumb (CMC) pain at rest and increased with use or pressure History of Current Condition Finished neck physical therapy this week. For the past month was having pain with the L thumb with weightbearing and squeezing objects. His pain is constant in nature rated at 2/10, but with pressure and use the pain increases to 5/10. States when there if pressure applied to the thumb (at the CMC joint) his pain is sharp in nature. He has been on Gabapentin for his neck and found the pain in his R arm was helped, but not in the L thumb. Can't play guitar. Prior Treatments and Tests MRI - 09/30/18 indicates tendinopathy of 1st extensor compartment and mild extensor carpi ulnaris tendinopathy, and probable small perforating tear involving the radial margin of the triangular fibrocartilage disc. Cortisone Injection - 11/10/18 with worsening of pain. Gabapentin that did not change L thumb pain. Future Testing and Treatments Planned Possible surgery to shave down arthritic changes. Treatment Goals Patient/Caregiver Goals Pt goal is to avoid surgery. Decreased constant pain. Improve strength of filter tender. Yoga class tolerating weightbearing in the L UE. 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 Baseline Function- Recreation/Hobbies Played a guitar 1 hour without pain or difficulty. Baseline Function- Other Occasional soreness of L hand with yoga Current Functional Impairments (Reported) Functional Limitations- ADL's Pain in the L thumb CMC jt is constant at 2/10, with weightbearing pain is 4-5/10. He states he is 1/4 of his normal strength. He is lifting restricted to 20 -40#. Functional Limitations- Work/School Currently is not back to work. Functional Limitations- Recreation/ Hurts playing the guitar. Hobbies Tires after 10 songs, ~20'-30' . Functional Limitations- Other Repositions hand to avoid WBing on the hand (for sit to stand transfers). Personal Factors Other Personal Factors That May Effect Prostate removed due to CA - 5 Therapy/Recovery .5 yrs ago. Arthritis, RAMOS's Hx of Neck surgery - to improve space of nerves PT-OP-C Subjective Start: 04/01/19 12:15 Freq: Status: Active Protocol: Document 04/01/19 12:46 LRN (Rec: 04/01/19 13:38 LRN [id number]) Patient Questionnaires Quick Dash- Upper Extremity Quick Dash UE Score [id number] Quick Dash UE Impairment 0% Impaired (Score 0) OP-PT Pain Assessment Pain Assessment Grid Paper Pain Assessment Grid Completed Yes Location L Thumb CMC joint Intensity 5 Scale Used Numeric (1 - 10) Description Aching,Sharp,Stabbing Description- Other Pressure elicits sharp/ stabbing pain, otherwise aching pain Frequency Constant Other Pain Aggravating Factors Pain with use. Patient Stated Pain Goal No pain. PT-OP-J Posture/Palpation/Skin Start: 04/01/19 12:15 Freq: Status: Active Protocol: Document 04/01/19 12:46 LRN (Rec: 04/01/19 13:38 LRN [id number]) Posture Evaluation Mauri Postural Classification System Elbow Flexion Test 2 Comments Posture Comments Mild fwd head, elevated L shoulder and scapula. Palpation Assessment Location L thumb Palpation Location L thumb at CMC joint and [place] Palpation Findings Edema,Tenderness PT-OP-M Strength Start: 04/01/19 12:15 Freq: Status: Active Protocol: Document 04/01/19 12:46 LRN (Rec: 04/01/19 13:38 LRN [id number]) Wrist Strength Wrist Manual Muscle Testing Right Reason Not Measured WFL Left Reason Not Measured WFL Finger/Thumb Strength Finger Manual Muscle Testing Right Thumb Flexion (fingers C8) 5 Normal Extension (thumb C8) 5 Normal Adduction 5 Normal Abduction (fingers T1) 5 Normal Left Thumb Flexion (fingers C8) 5 Normal Extension (thumb C8) 3 Fair Adduction 3 Fair Abduction (fingers T1) 4 Good Hand Track Rider/Pinch Strength Hand Dominance Hand Dominance Right Hand Strength Right Tip Pinch (lbs) 24 Comments Track Rider strength (kg): 3 trials: 45, 38, 37 Left Tip Pinch (lbs) 19 Comments Track Rider strength (kg): 3 trials: 40, 35, 30 PT-OP-R Modalities Start: 04/01/19 12:15 Freq: Status: Active Protocol: Document 04/01/19 12:46 LRN (Rec: 04/01/19 14:38 LRN [id number]) Hot Pack/Cold Pack Treatment Cold Pack Location L [place] Treatment Duration (minutes) 10 Comments Digits and ulnar side of hand covered with towel to start for cryotherapy to the [place] only. PT-OP-T Assessment and Plan Start: 04/01/19 12:15 Freq: Status: Active Protocol: Document 04/01/19 12:46 LRN (Rec: 04/01/19 13:38 LRN [id number]) Physical Therapy Assessment Rehab Potential Rehabilitation Potential Good Evaluation Complexity Number of Personal Factors/Comorbidities 3 or More Number of Body Systems Impaired 4 or More Clinical Presentation at Evaluation Evolving Impairments Impairments Activity Tolerance,Edema,Pain, ROM,Strength Goals Four Impairment Swelling in L [place] Short Term Goal (STG) Pt educated in joint protection and edema management techniques. STG Duration 04/05/19 Three Impairment Decreased L hand filter tender Fpc Goal (LTG) Pt will demonstrate normal filter tender strength without pain. LTG Duration 05/13/19 Two Impairment Constant L thumb pain hindering activity tolerance. Short Term Goal (STG) Decrease pain by 50% (1/10 at rest & 2-3/10 with palpation). STG Duration 04/29/19 Acid Treater Goal (LTG) Eliminate L thumb pain at rest and mild discomfort (1-2/10) with weightbearing activities. LTG Duration 05/13/19 One Impairment Lacks appropriate self care program Fpc Goal (LTG) Pt will be independent with a self care HEP. LTG Duration 05/27/19 Assessment Summary Assessment Pt presents with soft tissue dysfunction of the L [place], 1st extensor compartment, 1st dorsal interossei muscle, extensor carpi ulnaris tendon and soft tissue at the snuff box. He has some indication of de Quervain's tenosynovitis. He has mechanical dysfunction of the L CMC joint with pain. Swelling is visibly present with pain on palpation of the soft tissue and when pressure is applied at the thumb CMC joint. His wrist mobility is slightly limited with flex/ext . The pt will benefit from skilled physical therapy to decrease swelling and therapeutic exercise to improve CMC joint stability and reduce pain. Pt will require use of a custom thumb splint or [id number] splint to help minimize stress at the joint. Physical Therapy Plan Frequency and Duration Frequency of Treatment 2x/Week Plan of Care Start Date 04/01/19 Plan of Care End Date 05/27/19 Therapeutic Interventions Therapeutic Interventions Home Exercise Program,Joint Mobilizations,Manual Therapy, Patient/Caregiver Education, Self-Care/Home Management,Soft Tissue Mobilization,Taping, Therapeutic Exercises Modalities Cold Pack/Ice Massage,Hot Packs,Paraffin Bath,Ultrasound Next Visit Focus/Plan Next Note Type Treatment Note Next Visit Plan Discuss joint protection ( minimize thumb ext and use, nighttime care), edema management (cryotherapy, thumb splint, isotoner gloves). Improve L thumb and wrist flex /ext mobility, strengthen L hand, discuss nighttime positioning, modalities (US to thenar eminence, paraffin dip , cryotherapy), discuss splinting ([id number] vs custom splints). Assess for DeQuervain's tendonitis.
--- NOTE | 2019-04-04 16:47 | PT.OTN ---
Current Diagnoses Unilateral primary osteoarthritis of first carpometacarpal joint, right hand (04/04/19) Unilateral primary osteoarthritis of first carpometacarpal joint, left hand (04/04/19) Physical Therapy Treatment Note PT-OP-A Visit Information Start: 04/01/19 12:15 Freq: Status: Active Protocol: Document 04/04/19 08:18 LRN (Rec: 04/04/19 09:06 LRN [id number]) Out-Patient Physical Therapy Visit Information Visit Information Visit Type Treatment Note Visit Start Time 08:18 Visit Stop Time 09:05 Total Visit Minutes 47 Visit Number 2 Number of DISK RECOATER Visits 0 Evaluation Information Evaluation Date 04/01/19 Precautions Precautions Lifting restriction: 20-40# Recent Cervical surgery with spacers placed. PT-OP-B Current Condition Start: 04/01/19 12:15 Freq: Status: Active Protocol: Document 04/01/19 12:46 LRN (Rec: 04/01/19 13:38 LRN [id number]) Current Condition History of Current Condition Onset Date 1 month ago Current Complaints L thumb (CMC) pain at rest and increased with use or pressure History of Current Condition Finished neck physical therapy this week. For the past month was having pain with the L thumb with weightbearing and squeezing objects. His pain is constant in nature rated at 2/10, but with pressure and use the pain increases to 5/10. States when there if pressure applied to the thumb (at the CMC joint) his pain is sharp in nature. He has been on Gabapentin for his neck and found the pain in his R arm was helped, but not in the L thumb. Can't play guitar. Prior Treatments and Tests MRI - 09/30/18 indicates tendinopathy of 1st extensor compartment and mild extensor carpi ulnaris tendinopathy, and probable small perforating tear involving the radial margin of the triangular fibrocartilage disc. Cortisone Injection - 11/10/18 with worsening of pain. Gabapentin that did not change L thumb pain. Future Testing and Treatments Planned Possible surgery to shave down arthritic changes. Treatment Goals Patient/Caregiver Goals Pt goal is to avoid surgery. Decreased constant pain. Improve strength of car changer. Yoga class tolerating weightbearing in the L UE. 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 Baseline Function- Recreation/Hobbies Played a guitar 1 hour without pain or difficulty. Baseline Function- Other Occasional soreness of L hand with yoga Current Functional Impairments (Reported) Functional Limitations- ADL's Pain in the L thumb CMC jt is constant at 2/10, with weightbearing pain is 4-5/10. He states he is 1/4 of his normal strength. He is lifting restricted to 20 -40#. Functional Limitations- Work/School Currently is not back to work. Functional Limitations- Recreation/ Hurts playing the [employer]. Hobbies Tires after 10 songs, ~20'-30' . Functional Limitations- Other Repositions hand to avoid WBing on the hand (for sit to stand transfers). Personal Factors Other Personal Factors That May Effect Prostate removed due to CA - 5 Therapy/Recovery .5 yrs ago. Arthritis, RAMOS's Hx of Neck surgery - to improve space of nerves PT-OP-C Subjective Start: 04/01/19 12:15 Freq: Status: Active Protocol: Document 04/04/19 08:18 LRN (Rec: 04/04/19 09:06 LRN [id number]) OP-PT Subjective Patient Comments Patient Comments No change PT-OP-J Posture/Palpation/Skin Start: 04/01/19 12:15 Freq: Status: Active Protocol: Document 04/01/19 12:46 LRN (Rec: 04/01/19 13:38 LRN [id number]) Posture Evaluation Mauri Postural Classification System Elbow Flexion Test 2 Comments Posture Comments Mild fwd head, elevated L shoulder and scapula. Palpation Assessment Location L thumb Palpation Location L thumb at CMC joint and [place] Palpation Findings Edema,Tenderness PT-OP-M Strength Start: 04/01/19 12:15 Freq: Status: Active Protocol: Document 04/01/19 12:46 LRN (Rec: 04/01/19 13:38 LRN [id number]) Wrist Strength Wrist Manual Muscle Testing Right Reason Not Measured WFL Left Reason Not Measured WFL Finger/Thumb Strength Finger Manual Muscle Testing Right Thumb Flexion (fingers C8) 5 Normal Extension (thumb C8) 5 Normal Adduction 5 Normal Abduction (fingers T1) 5 Normal Left Thumb Flexion (fingers C8) 5 Normal Extension (thumb C8) 3 Fair Adduction 3 Fair Abduction (fingers T1) 4 Good Hand Production Assistant/Pinch Strength Hand Dominance Hand Dominance Right Hand Strength Right Tip Pinch (lbs) 24 Comments Production Assistant strength (kg): 3 trials: 45, 38, 37 Left Tip Pinch (lbs) 19 Comments Production Assistant strength (kg): 3 trials: 40, 35, 30 PT-OP-Q Treatments Start: 04/01/19 12:15 Freq: Status: Active Protocol: Document 04/04/19 08:18 LRN (Rec: 04/04/19 09:06 LRN [id number]) Therapeutic Exercises Sitting Exercises Aleksandra stretch Sitting Exercise Name Thumb extensor stretch - Gentle Side left Wrist RD/UD stretch Sitting Exercise Name Radial Deviation > Ulnar Deviation stretch Side left Wrist flexion Sitting Exercise Name Wrist flexion stretch Side left cervical sidebending stretch Sitting Exercise Name SB Side bilateral Reps/Minutes 2x30 sec holds wrist extension Sitting Exercise Name wrist ext stretch Side left Self-Care/Home Management Treatment Education Patient Education Home Exercise Program Other Education Discussed at length use of L thumb splint and options for splinting 22/01. Discussed impact with functional and recreational activities. Activities Self-Care/Home Management Activities Issued and reviewed Contrast bath home program PT-OP-R Modalities Start: 04/01/19 12:15 Freq: Status: Active Protocol: Document 04/04/19 08:18 LRN (Rec: 04/04/19 16:46 LRN [id number]) Hot Pack/Cold Pack Treatment Cold Pack Location L wrist/thenar eminence Patient Position Sitting Paraffin Bath Treatment Left Hand Treatment Technique Dip-immersion Duration (minutes) 12 Patient Tolerance Good Comment Treatment Comment Extra time taken for first time use. Ultrasound Therapy Treatment Left Thumb Treatment Duration (minutes) 8 Patient Position Sitting Coupling Medium Ultrasound Gel Applicator Size (cm2) 2 Frequency Setting (mHz) 3 Mode Setting Pulsed Duty Cycle 50% Intensity Setting (w/cm2) 1.0 Comments L [place] L Snuff box & L thumb ext tendon PT-OP-T Assessment and Plan Start: 04/01/19 12:15 Freq: Status: Active Protocol: Document 04/04/19 08:18 LRN (Rec: 04/04/19 09:06 LRN [id number]) Physical Therapy Assessment Assessment Summary Assessment + Aleksandra Test; therefore + DeQuervein. Tender at L thumb extensor tendon at snuff box. Physical Therapy Plan Frequency and Duration Frequency of Treatment 2x/Week Next Visit Focus/Plan Next Note Type Treatment Note Next Visit Plan Assess response to paraffin/ cryotherapy and Ultrasound. If referral returned, check for Iontophoresis. If pt brings thumb spint in, discuss further joint protection ( minimize thumb ext and use, nighttime care), assess home edema management (cryotherapy, thumb splint, isotoner gloves ). Improve L thumb and wrist flex/ext mobility, strengthen L hand, discuss nighttime positioning, modalities (US to thenar eminence, paraffin dip , cryotherapy).
--- NOTE | 2019-04-08 14:57 | PT.OTN ---
Current Diagnoses Unilateral primary osteoarthritis of first carpometacarpal joint, right hand (04/08/19) Unilateral primary osteoarthritis of first carpometacarpal joint, left hand (04/08/19) Physical Therapy Treatment Note PT-OP-A Visit Information Start: 04/01/19 12:15 Freq: Status: Active Protocol: Document 04/08/19 13:30 LRN (Rec: 04/08/19 14:17 LRN [id number]) Out-Patient Physical Therapy Visit Information Visit Information Visit Type Treatment Note Visit Start Time 13:31 Visit Stop Time 14:21 Total Visit Minutes 50 Visit Number 3 Number of PUBLIC AID ELIGIBILITY ASSISTANT Visits 0 Evaluation Information Evaluation Date 04/01/19 Precautions Precautions Lifting restriction: 20-40# Recent Cervical surgery with spacers placed. States he ordered a new thumb brace. PT-OP-B Current Condition Start: 04/01/19 12:15 Freq: Status: Active Protocol: Document 04/01/19 12:46 LRN (Rec: 04/01/19 13:38 LRN [id number]) Current Condition History of Current Condition Onset Date 1 month ago Current Complaints L thumb (CMC) pain at rest and increased with use or pressure History of Current Condition Finished neck physical therapy this week. For the past month was having pain with the L thumb with weightbearing and squeezing objects. His pain is constant in nature rated at 2/10, but with pressure and use the pain increases to 5/10. States when there if pressure applied to the thumb (at the CMC joint) his pain is sharp in nature. He has been on Gabapentin for his neck and found the pain in his R arm was helped, but not in the L thumb. Can't play guitar. Prior Treatments and Tests MRI - 09/30/18 indicates tendinopathy of 1st extensor compartment and mild extensor carpi ulnaris tendinopathy, and probable small perforating tear involving the radial margin of the triangular fibrocartilage disc. Cortisone Injection - 11/10/18 with worsening of pain. Gabapentin that did not change L thumb pain. Future Testing and Treatments Planned Possible surgery to shave down arthritic changes. Treatment Goals Patient/Caregiver Goals Pt goal is to avoid surgery. Decreased constant pain. 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 Yoga class tolerating weightbearing in the L UE. 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 Baseline Function- Recreation/Hobbies Played a guitar 1 hour without pain or difficulty. Baseline Function- Other Occasional soreness of L hand with yoga Current Functional Impairments (Reported) Functional Limitations- ADL's Pain in the L thumb CMC jt is constant at 2/10, with weightbearing pain is 4-5/10. He states he is 1/4 of his normal strength. He is lifting restricted to 20 -40#. Functional Limitations- Work/School Currently is not back to work. Functional Limitations- Recreation/ Hurts playing the [employer]. Hobbies Tires after 10 songs, ~20'-30' . Functional Limitations- Other Repositions hand to avoid WBing on the hand (for sit to stand transfers). Personal Factors Other Personal Factors That May Effect Prostate removed due to CA - 5 Therapy/Recovery .5 yrs ago. Arthritis, RAMOS's Hx of Neck surgery - to improve space of nerves PT-OP-C Subjective Start: 04/01/19 12:15 Freq: Status: Active Protocol: Document 04/08/19 13:30 LRN (Rec: 04/08/19 14:17 LRN [id number]) OP-PT Subjective Patient Comments Patient Comments No change in the hand. Did a yoga class and had to weightbear on the ulnar side of the hand. PT-OP-J Posture/Palpation/Skin Start: 04/01/19 12:15 Freq: Status: Active Protocol: Document 04/01/19 12:46 LRN (Rec: 04/01/19 13:38 LRN [id number]) Posture Evaluation Mauri Postural Classification System Elbow Flexion Test 2 Comments Posture Comments Mild fwd head, elevated L shoulder and scapula. Palpation Assessment Location L thumb Palpation Location L thumb at CMC joint and Thenar Harvel Palpation Findings Edema,Tenderness PT-OP-M Strength Start: 04/01/19 12:15 Freq: Status: Active Protocol: Document 04/01/19 12:46 LRN (Rec: 04/01/19 13:38 LRN [id number]) Wrist Strength Wrist Manual Muscle Testing Right Reason Not Measured WFL Left Reason Not Measured WFL Finger/Thumb Strength Finger Manual Muscle Testing Right Thumb Flexion (fingers C8) 5 Normal Extension (thumb C8) 5 Normal Adduction 5 Normal Abduction (fingers T1) 5 Normal Left Thumb Flexion (fingers C8) 5 Normal Extension (thumb C8) 3 Fair Adduction 3 Fair Abduction (fingers T1) 4 Good Hand Aircraft Sales Representative/Pinch Strength Hand Dominance Hand Dominance Right Hand Strength Right Tip Pinch (lbs) 24 Comments Aircraft Sales Representative strength (kg): 3 trials: 45, 38, 37 Left Tip Pinch (lbs) 19 Comments Aircraft Sales Representative strength (kg): 3 trials: 40, 35, 30 PT-OP-Q Treatments Start: 04/01/19 12:15 Freq: Status: Active Protocol: Document 04/08/19 13:30 LRN (Rec: 04/08/19 14:17 LRN [id number]) Therapeutic Exercises Sitting Exercises Aleksandra stretch Sitting Exercise Name Thumb extensor stretch - Gentle Side left Wrist RD/UD stretch Sitting Exercise Name Radial Deviation > Ulnar Deviation stretch Side left Wrist flexion Sitting Exercise Name Wrist flexion stretch Side left bicep curls Sitting Exercise Name 3 way Side bilateral Resistance 5# Equipment Used round weights Reps/Minutes 10 ea Comments reviewed from HEP cervical sidebending stretch Sitting Exercise Name SB Side bilateral Reps/Minutes 2x30 sec holds wrist extension Sitting Exercise Name wrist ext stretch Side left Manual Therapy Treatment Soft Tissue Mobilization L forearm Body Location L wrist flexors Mobilization Type Strumming,Sustained Pressure Intensity/Depth Moderate Body Position Sitting Self-Care/Home Management Treatment Education Patient Education Joint Protection,Pain Management Other Education Reviewed pt to minimize thumb extension and wear thumb splint during the night and when using hand, but to remove when at rest during the day. Discussed use of an isotoner type glove for edema management. Activities Self-Care/Home Management Activities Pt to continue contrast bath at home. PT-OP-R Modalities Start: 04/01/19 12:15 Freq: Status: Active Protocol: Document 04/08/19 13:30 LRN (Rec: 04/08/19 14:23 LRN [id number]) Hot Pack/Cold Pack Treatment Cold Pack Location L wrist/thenar eminence Patient Position Sitting Treatment Duration (minutes) 10 Paraffin Bath Treatment Left Hand Treatment Technique Dip-immersion Duration (minutes) 12 Patient Tolerance Good Ultrasound Therapy Treatment Left Thumb Treatment Duration (minutes) 8 Patient Position Supine Coupling Medium Ultrasound Gel Applicator Size (cm2) 2 Frequency Setting (mHz) 3 Mode Setting Pulsed Duty Cycle 50% Intensity Setting (w/cm2) 1.0 Comments L Thenar Harvel Pt supine with hand held higher than heart PT-OP-T Assessment and Plan Start: 04/01/19 12:15 Freq: Status: Active Protocol: Document 04/08/19 13:30 LRN (Rec: 04/08/19 14:17 LRN [id number]) Physical Therapy Assessment Goals Four Impairment Swelling in L Thenar [place]vel Short Term Goal (STG) Pt educated in joint protection and edema management techniques. STG Duration 04/05/19 (04/08/19: GOAL MET) Three Impairment Decreased L hand ship mate Assisted Goal (LTG) Pt will demonstrate normal ship mate strength without pain. LTG Duration 05/13/19 Two Impairment Constant L thumb pain hindering activity tolerance. Short Term Goal (STG) Decrease pain by 50% (1/10 at rest & 2-3/10 with palpation). STG Duration 04/29/19 Manager Order Goal (LTG) Eliminate L thumb pain at rest and mild discomfort (1-2/10) with weightbearing activities. LTG Duration 05/13/19 One Impairment Lacks appropriate self care program Manager Order Goal (LTG) Pt will be independent with a self care HEP. LTG Duration 05/27/19 Assessment Summary Assessment No change with paraffin dip, Thenar Harvel had a little less pain with palpation after Ultrasound, but visually very little change in edema noticed. No change with tenderness. Pt continues to have pain with L thumb ext. Physical Therapy Plan Frequency and Duration Frequency of Treatment 2x/Week Plan of Care Start Date 04/01/19 Plan of Care End Date 05/27/19 Next Visit Focus/Plan Next Note Type Treatment Note Next Visit Plan Try K-tape. If referral returned for treatment of Iontophoresis, then start Ionto. If pt brings new thumb spint, assess for joint protection (minimize thumb ext and use, nighttime care), assess home edema management ( cryotherapy, thumb splint, isotoner gloves). Improve L thumb and wrist flex/ext mobility, strengthen L hand, try holding paraffin and start US, laser, ice.
--- NOTE | 2019-04-10 16:00 | PT.OTN ---
Current Diagnoses Unilateral primary osteoarthritis of first carpometacarpal joint, right hand (04/10/19) Unilateral primary osteoarthritis of first carpometacarpal joint, left hand (04/10/19) Physical Therapy Treatment Note PT-OP-A Visit Information Start: 04/01/19 12:15 Freq: Status: Active Protocol: Document 04/10/19 13:45 AMB (Rec: 04/11/19 07:58 AMB [email or web address]) Out-Patient Physical Therapy Visit Information Visit Information Visit Type Treatment Note Visit Start Time 13:46 Visit Stop Time 14:36 Total Visit Minutes 50 Visit Number 4 Number of RECREATION TEACHER Visits 0 Precautions Precautions Lifting restriction: 20-40# Recent Cervical surgery with spacers placed. . PT-OP-B Current Condition Start: 04/01/19 12:15 Freq: Status: Active Protocol: Document 04/01/19 12:46 LRN (Rec: 04/01/19 13:38 LRN [id number]) Current Condition History of Current Condition Onset Date 1 month ago Current Complaints L thumb (CMC) pain at rest and increased with use or pressure History of Current Condition Finished neck physical therapy this week. For the past month was having pain with the L thumb with weightbearing and squeezing objects. His pain is constant in nature rated at 2/10, but with pressure and use the pain increases to 5/10. States when there if pressure applied to the thumb (at the CMC joint) his pain is sharp in nature. He has been on Gabapentin for his neck and found the pain in his R arm was helped, but not in the L thumb. Can't play guitar. Prior Treatments and Tests MRI - 09/30/18 indicates tendinopathy of 1st extensor compartment and mild extensor carpi ulnaris tendinopathy, and probable small perforating tear involving the radial margin of the triangular fibrocartilage disc. Cortisone Injection - 11/10/18 with worsening of pain. Gabapentin that did not change L thumb pain. Future Testing and Treatments Planned Possible surgery to shave down arthritic changes. Treatment Goals Patient/Caregiver Goals Pt goal is to avoid surgery. Decreased constant pain. Improve strength of artist scientific. Yoga class tolerating weightbearing in the L UE. 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 Baseline Function- Recreation/Hobbies Played a guitar 1 hour without pain or difficulty. Baseline Function- Other Occasional soreness of L hand with yoga Current Functional Impairments (Reported) Functional Limitations- ADL's Pain in the L thumb CMC jt is constant at 2/10, with weightbearing pain is 4-5/10. He states he is 1/4 of his normal strength. He is lifting restricted to 20 -40#. Functional Limitations- Work/School Currently is not back to work. Functional Limitations- Recreation/ Hurts playing the guitar. Hobbies Tires after 10 songs, ~20'-30' . Functional Limitations- Other Repositions hand to avoid WBing on the hand (for sit to stand transfers). Personal Factors Other Personal Factors That May Effect Prostate removed due to CA - 5 Therapy/Recovery .5 yrs ago. Arthritis, RAMOS's Hx of Neck surgery - to improve space of nerves PT-OP-C Subjective Start: 04/01/19 12:15 Freq: Status: Active Protocol: Document 04/10/19 13:45 AMB (Rec: 04/11/19 07:58 AMB [id number]) OP-PT Subjective Patient Comments Patient Comments Pt overall feels about the same, brings in new thumb brace, which appears appropriate- pt does report increased pain when he takes it off. PT-OP-J Posture/Palpation/Skin Start: 04/01/19 12:15 Freq: Status: Active Protocol: Document 04/01/19 12:46 LRN (Rec: 04/01/19 13:38 LRN [id number]) Posture Evaluation Mauri Postural Classification System Elbow Flexion Test 2 Comments Posture Comments Mild fwd head, elevated L shoulder and scapula. Palpation Assessment Location L thumb Palpation Location L thumb at CMC joint and Thenar Bryan Palpation Findings Edema,Tenderness PT-OP-M Strength Start: 04/01/19 12:15 Freq: Status: Active Protocol: Document 04/01/19 12:46 LRN (Rec: 04/01/19 13:38 LRN [id number]) Wrist Strength Wrist Manual Muscle Testing Right Reason Not Measured WFL Left Reason Not Measured WFL Finger/Thumb Strength Finger Manual Muscle Testing Right Thumb Flexion (fingers C8) 5 Normal Extension (thumb C8) 5 Normal Adduction 5 Normal Abduction (fingers T1) 5 Normal Left Thumb Flexion (fingers C8) 5 Normal Extension (thumb C8) 3 Fair Adduction 3 Fair Abduction (fingers T1) 4 Good Hand Linux Engineer/Pinch Strength Hand Dominance Hand Dominance Right Hand Strength Right Tip Pinch (lbs) 24 Comments Linux Engineer strength (kg): 3 trials: 45, 38, 37 Left Tip Pinch (lbs) 19 Comments Linux Engineer strength (kg): 3 trials: 40, 35, 30 PT-OP-Q Treatments Start: 04/01/19 12:15 Freq: Status: Active Protocol: Document 04/10/19 13:45 AMB (Rec: 04/11/19 07:58 AMB [id number]) Therapeutic Exercises Sitting Exercises 1 Sitting Exercise Name supination/pronation Resistance 4# Comments with focus on thumb positioning Aleksandra stretch Sitting Exercise Name Thumb extensor stretch - Gentle Side left bicep curls Sitting Exercise Name 3 way Side bilateral Resistance 5# Equipment Used round weights Reps/Minutes 10 ea Comments focus on thumb placement wrist extension Sitting Exercise Name wrist ext stretch Side left Manual Therapy Treatment Soft Tissue Mobilization 1 Body Location thenar eminence Mobilization Type Myofascial Release,Strumming Intensity/Depth Moderate Body Position Sitting L forearm Body Location L wrist flexors Mobilization Type Strumming,Sustained Pressure Intensity/Depth Moderate Body Position Sitting Joint Mobilizations 1 Joint CMC Direction AP and PA with distraction Grade II Body Position Sitting PT-OP-R Modalities Start: 04/01/19 12:15 Freq: Status: Active Protocol: Document 04/10/19 13:45 AMB (Rec: 04/11/19 07:58 AMB [id number]) Paraffin Bath Treatment Left Hand Treatment Technique Dip-immersion Duration (minutes) 12 Patient Tolerance Good Ultrasound Therapy Treatment Left Thumb Treatment Duration (minutes) 8 Patient Position Supine Coupling Medium Ultrasound Gel Applicator Size (cm2) 2 Frequency Setting (mHz) 3 Mode Setting Pulsed Duty Cycle 50% Intensity Setting (w/cm2) 1.0 Comments L Thenar Bryan Pt supine with hand held higher than heart PT-OP-T Assessment and Plan Start: 04/01/19 12:15 Freq: Status: Active Protocol: Document 04/10/19 13:45 AMB (Rec: 04/11/19 07:58 AMB [email or web address]) Physical Therapy Assessment Assessment Summary Assessment Edema evident when pt removes brace. Overall continues to have to modify artist scientific to avoid thumb pain. Physical Therapy Plan Frequency and Duration Frequency of Treatment 2x/Week Plan of Care Start Date 04/01/19 Plan of Care End Date 05/27/19 Next Visit Focus/Plan Next Note Type Treatment Note Next Visit Plan Try K-tape. If referral returned for treatment of Iontophoresis, then start assess home edema management ( cryotherapy, thumb splint, isotoner gloves). Improve L thumb and wrist flex/ext mobility, strengthen L hand, try holding paraffin and start US, laser, ice.
--- NOTE | 2019-04-15 14:53 | PT.OTN ---
Current Diagnoses Unilateral primary osteoarthritis of first carpometacarpal joint, right hand (04/15/19) Unilateral primary osteoarthritis of first carpometacarpal joint, left hand (04/15/19) Physical Therapy Treatment Note PT-OP-A Visit Information Start: 04/01/19 12:15 Freq: Status: Active Protocol: Document 04/15/19 13:38 LRN (Rec: 04/15/19 14:52 LRN [id number]) Out-Patient Physical Therapy Visit Information Visit Information Visit Type Treatment Note Visit Start Time 13:37 Visit Stop Time 14:18 Total Visit Minutes 41 Visit Number 5 Number of WHARF TALLY CLERK Visits 0 Evaluation Information Evaluation Date 04/01/19 PT-OP-B Current Condition Start: 04/01/19 12:15 Freq: Status: Active Protocol: Document 04/01/19 12:46 LRN (Rec: 04/01/19 13:38 LRN [id number]) Current Condition History of Current Condition Onset Date 1 month ago Current Complaints L thumb (CMC) pain at rest and increased with use or pressure History of Current Condition Finished neck physical therapy this week. For the past month was having pain with the L thumb with weightbearing and squeezing objects. His pain is constant in nature rated at 2/10, but with pressure and use the pain increases to 5/10. States when there if pressure applied to the thumb (at the CMC joint) his pain is sharp in nature. He has been on Gabapentin for his neck and found the pain in his R arm was helped, but not in the L thumb. Can't play guitar. Prior Treatments and Tests MRI - 09/30/18 indicates tendinopathy of 1st extensor compartment and mild extensor carpi ulnaris tendinopathy, and probable small perforating tear involving the radial margin of the triangular fibrocartilage disc. Cortisone Injection - 11/10/18 with worsening of pain. Gabapentin that did not change L thumb pain. Future Testing and Treatments Planned Possible surgery to shave down arthritic changes. Treatment Goals Patient/Caregiver Goals Pt goal is to avoid surgery. Decreased constant pain. Improve strength of watch parts inspector. Yoga class tolerating weightbearing in the L UE. 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 Baseline Function- Recreation/Hobbies Played a guitar 1 hour without pain or difficulty. Baseline Function- Other Occasional soreness of L hand with yoga Current Functional Impairments (Reported) Functional Limitations- ADL's Pain in the L thumb CMC jt is constant at 2/10, with weightbearing pain is 4-5/10. He states he is 1/4 of his normal strength. He is lifting restricted to 20 -40#. Functional Limitations- Work/School Currently is not back to work. Functional Limitations- Recreation/ Hurts playing the guitar. Hobbies Tires after 10 songs, ~20'-30' . Functional Limitations- Other Repositions hand to avoid WBing on the hand (for sit to stand transfers). Personal Factors Other Personal Factors That May Effect Prostate removed due to CA - 5 Therapy/Recovery .5 yrs ago. Arthritis, RAMOS's Hx of Neck surgery - to improve space of nerves PT-OP-C Subjective Start: 04/01/19 12:15 Freq: Status: Active Protocol: Document 04/15/19 13:38 LRN (Rec: 04/15/19 14:52 LRN [id number]) OP-PT Subjective Patient Comments Patient Comments Notes no change. Having to roll off hand for yoga. PT-OP-J Posture/Palpation/Skin Start: 04/01/19 12:15 Freq: Status: Active Protocol: Document 04/01/19 12:46 LRN (Rec: 04/01/19 13:38 LRN [id number]) Posture Evaluation Mauri Postural Classification System Elbow Flexion Test 2 Comments Posture Comments Mild fwd head, elevated L shoulder and scapula. Palpation Assessment Location L thumb Palpation Location L thumb at CMC joint and Thenar [place] Palpation Findings Edema,Tenderness PT-OP-M Strength Start: 04/01/19 12:15 Freq: Status: Active Protocol: Document 04/01/19 12:46 LRN (Rec: 04/01/19 13:38 LRN [id number]) Wrist Strength Wrist Manual Muscle Testing Right Reason Not Measured WFL Left Reason Not Measured WFL Finger/Thumb Strength Finger Manual Muscle Testing Right Thumb Flexion (fingers C8) 5 Normal Extension (thumb C8) 5 Normal Adduction 5 Normal Abduction (fingers T1) 5 Normal Left Thumb Flexion (fingers C8) 5 Normal Extension (thumb C8) 3 Fair Adduction 3 Fair Abduction (fingers T1) 4 Good Hand Knitted Garment Finisher/Pinch Strength Hand Dominance Hand Dominance Right Hand Strength Right Tip Pinch (lbs) 24 Comments Knitted Garment Finisher strength (kg): 3 trials: 45, 38, 37 Left Tip Pinch (lbs) 19 Comments Knitted Garment Finisher strength (kg): 3 trials: 40, 35, 30 PT-OP-Q Treatments Start: 04/01/19 12:15 Freq: Status: Active Protocol: Document 04/15/19 13:38 LRN (Rec: 04/15/19 14:52 LRN [id number]) Therapeutic Exercises Sitting Exercises Aleksandra stretch Sitting Exercise Name Thumb extensor stretch - Gentle Side left Wrist RD/UD stretch Sitting Exercise Name Radial Deviation > Ulnar Deviation stretch Side left Wrist flexion Sitting Exercise Name Wrist flexion stretch Side left Manual Therapy Treatment Taping L Wrist Body Location L wrist Treatment Focus Stabilization and space correction Skin Inspection Good Comments deQuervain's and thenar eminence space correction. Taping applied twice due to wrong positioning with first 2 tapes. PT-OP-R Modalities Start: 04/01/19 12:15 Freq: Status: Active Protocol: Document 04/15/19 13:38 LRN (Rec: 04/15/19 14:52 LRN [id number]) Paraffin Bath Treatment Left Hand Treatment Technique Dip-immersion Duration (minutes) 8 Patient Tolerance Good PT-OP-T Assessment and Plan Start: 04/01/19 12:15 Freq: Status: Active Protocol: Document 04/15/19 13:38 LRN (Rec: 04/15/19 14:52 LRN [id number]) Physical Therapy Assessment Goals Four Impairment Swelling in L Thenar [place] Short Term Goal (STG) Pt educated in joint protection and edema management techniques. STG Duration 04/05/19 (04/08/19: GOAL MET) Three Impairment Decreased L hand watch parts inspector Mcfp Goal (LTG) Pt will demonstrate normal watch parts inspector strength without pain. LTG Duration 05/13/19 Two Impairment Constant L thumb pain hindering activity tolerance. Short Term Goal (STG) Decrease pain by 50% (1/10 at rest & 2-3/10 with palpation). STG Duration 04/29/19 Polymer Tester Goal (LTG) Eliminate L thumb pain at rest and mild discomfort (1-2/10) with weightbearing activities. LTG Duration 05/13/19 One Impairment Lacks appropriate self care program Mcfp Goal (LTG) Pt will be independent with a self care HEP. LTG Duration 05/27/19 Assessment Summary Assessment Pt did not have brace and L wrist/hand edema present. No significant change with HEP: icing. Pt may not be consistent with contrast baths . He continues to do yoga and is not wearing the thumb splint consistently. POC has not been returned; therefore hold ionto. Physical Therapy Plan Frequency and Duration Frequency of Treatment 2x/Week Plan of Care Start Date 04/01/19 Plan of Care End Date 05/27/19 Next Visit Focus/Plan Next Note Type Treatment Note Next Visit Plan Assess K-tape response. Check for ionto referral, assess edema. Improve L thumb and wrist flex/ext mobility, strengthen L hand, try holding paraffin and start US, laser, ice.
--- NOTE | 2019-04-22 17:05 | PT.OTN ---
Current Diagnoses Unilateral primary osteoarthritis of first carpometacarpal joint, right hand (04/22/19) Unilateral primary osteoarthritis of first carpometacarpal joint, left hand (04/22/19) Physical Therapy Treatment Note PT-OP-A Visit Information Start: 04/01/19 12:15 Freq: Status: Active Protocol: Document 04/22/19 09:04 LRN (Rec: 04/22/19 09:51 LRN [id number]) Out-Patient Physical Therapy Visit Information Visit Information Visit Type Treatment Note Visit Start Time 09:04 Visit Stop Time 09:53 Total Visit Minutes 49 Visit Number 7 Number of TECHNOLOGY SALES SPECIALIST Visits 0 Evaluation Information Evaluation Date 04/01/19 Precautions Precautions Lifting restriction: 20-40# Recent Cervical surgery with spacers placed. PT-OP-B Current Condition Start: 04/01/19 12:15 Freq: Status: Active Protocol: Document 04/01/19 12:46 LRN (Rec: 04/01/19 13:38 LRN [id number]) Current Condition History of Current Condition Onset Date 1 month ago Current Complaints L thumb (CMC) pain at rest and increased with use or pressure History of Current Condition Finished neck physical therapy this week. For the past month was having pain with the L thumb with weightbearing and squeezing objects. His pain is constant in nature rated at 2/10, but with pressure and use the pain increases to 5/10. States when there if pressure applied to the thumb (at the CMC joint) his pain is sharp in nature. He has been on Gabapentin for his neck and found the pain in his R arm was helped, but not in the L thumb. Can't play guitar. Prior Treatments and Tests MRI - 09/30/18 indicates tendinopathy of 1st extensor compartment and mild extensor carpi ulnaris tendinopathy, and probable small perforating tear involving the radial margin of the triangular fibrocartilage disc. Cortisone Injection - 11/10/18 with worsening of pain. Gabapentin that did not change L thumb pain. Future Testing and Treatments Planned Possible surgery to shave down arthritic changes. Treatment Goals Patient/Caregiver Goals Pt goal is to avoid surgery. Decreased constant pain. 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 Yoga class tolerating weightbearing in the L UE. 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 Baseline Function- Recreation/Hobbies Played a guitar 1 hour without pain or difficulty. Baseline Function- Other Occasional soreness of L hand with yoga Current Functional Impairments (Reported) Functional Limitations- ADL's Pain in the L thumb CMC jt is constant at 2/10, with weightbearing pain is 4-5/10. He states he is 1/4 of his normal strength. He is lifting restricted to 20 -40#. Functional Limitations- Work/School Currently is not back to work. Functional Limitations- Recreation/ Hurts playing the guitar. Hobbies Tires after 10 songs, ~20'-30' . Functional Limitations- Other Repositions hand to avoid WBing on the hand (for sit to stand transfers). Personal Factors Other Personal Factors That May Effect Prostate removed due to CA - 5 Therapy/Recovery .5 yrs ago. Arthritis, RAMOS's Hx of Neck surgery - to improve space of nerves PT-OP-C Subjective Start: 04/01/19 12:15 Freq: Status: Active Protocol: Document 04/22/19 09:04 LRN (Rec: 04/22/19 09:51 LRN [id number]) OP-PT Subjective Patient Comments Patient Comments States he is weaing the thumb brace, no pain with brace. He has worn his compression glove 3 days, can't wear with K-tape. States he can't play guitar with the glove, but could with the K-tape. Patient Reported Progress Same PT-OP-J Posture/Palpation/Skin Start: 04/01/19 12:15 Freq: Status: Active Protocol: Document 04/01/19 12:46 LRN (Rec: 04/01/19 13:38 LRN [id number]) Posture Evaluation Mauri Postural Classification System Elbow Flexion Test 2 Comments Posture Comments Mild fwd head, elevated L shoulder and scapula. Palpation Assessment Location L thumb Palpation Location L thumb at CMC joint and Thenar [place] Palpation Findings Edema,Tenderness PT-OP-M Strength Start: 04/01/19 12:15 Freq: Status: Active Protocol: Document 04/01/19 12:46 LRN (Rec: 04/01/19 13:38 LRN [id number]) Wrist Strength Wrist Manual Muscle Testing Right Reason Not Measured WFL Left Reason Not Measured WFL Finger/Thumb Strength Finger Manual Muscle Testing Right Thumb Flexion (fingers C8) 5 Normal Extension (thumb C8) 5 Normal Adduction 5 Normal Abduction (fingers T1) 5 Normal Left Thumb Flexion (fingers C8) 5 Normal Extension (thumb C8) 3 Fair Adduction 3 Fair Abduction (fingers T1) 4 Good Hand Label Designer/Pinch Strength Hand Dominance Hand Dominance Right Hand Strength Right Tip Pinch (lbs) 24 Comments Label Designer strength (kg): 3 trials: 45, 38, 37 Left Tip Pinch (lbs) 19 Comments Label Designer strength (kg): 3 trials: 40, 35, 30 PT-OP-Q Treatments Start: 04/01/19 12:15 Freq: Status: Active Protocol: Document 04/22/19 09:04 LRN (Rec: 04/22/19 09:51 LRN [id number]) Therapeutic Exercises Sitting Exercises L Thumb PROM Sitting Exercise Name Self Passive Thumb ext & AB Side left Reps/Minutes ~10 x Comments Painfree range Opposition Sitting Exercise Name Opposition with thumb returning to neutral Comments exer after US. UD/RD strengthening Sitting Exercise Name UD/RD AROM Side left Resistance 0# Reps/Minutes 15x 2 Gripping Sitting Exercise Name Gripping without object Side left Reps/Minutes 10 sec hold Aleksandra stretch Sitting Exercise Name Thumb extensor stretch - Gentle Side left Reps/Minutes 10 hold x 10. Wrist flexion Sitting Exercise Name Wrist flexion stretch and strengthening Side left Reps/Minutes 2' stretch, 15 x 2 strengthening wrist extension Sitting Exercise Name wrist ext stretch and strengthening Side left Resistance 4# Reps/Minutes 2' stretch, 15 x 2 strengthening Self-Care/Home Management Treatment Activities Self-Care/Home Management Activities Assessed fit of compression glove and made recommendations for stretching bottom of glove for easier on/off. Pt to wear with [employer] as able . I/S pt to periodically take thumb splint off for Aleksandra stretch. PT-OP-R Modalities Start: 04/01/19 12:15 Freq: Status: Active Protocol: Document 04/22/19 09:04 LRN (Rec: 04/22/19 09:51 LRN [id number]) Hot Pack/Cold Pack Treatment Cold Pack Location L wrist/thenar eminence Patient Position Sitting Treatment Duration (minutes) 10 Ultrasound Therapy Treatment Left Thumb Treatment Duration (minutes) 8 Patient Position Sitting Applicator Size (cm2) 2 Frequency Setting (mHz) 3 Mode Setting Pulsed Duty Cycle 50% Comments 5' for L Thenar [place], 3 MHz, pulsed 3' for around CMC jt and snuff box tendons, 1 MHz, pulsed PT-OP-T Assessment and Plan Start: 04/01/19 12:15 Freq: Status: Active Protocol: Document 04/22/19 09:04 LRN (Rec: 04/22/19 09:51 LRN [id number]) Physical Therapy Assessment Assessment Summary Assessment Pt able to perform Aleksandra stretch without pain after US , but had pain prior to US. His L thumb ext & AB tendons are getting tight with use of thumb splint; therefore needs more self stretching. Pt able to workforce development assistant without pain with mild use of thumb after treatment. Will hold K-tape 1 week to see if use of glove is more beneficial. He appears to have a little less swelling in the thumb with 3 days use of glove so far. Therapy performed without glove or splint. Physical Therapy Plan Frequency and Duration Frequency of Treatment 2x/Week Plan of Care Start Date 04/01/19 Plan of Care End Date 05/27/19 Next Visit Focus/Plan Next Note Type Treatment Note Next Visit Plan Check for POC for use of iontophoresis. Pt to wear L thumb brace as much as possible. Removing brace for recreational and functional activities if can be performed painfree. Pt to do thumb/ wrist ROM ex and wear glove for edema managment. Assess in 1 week for use of K-tape vs glove for edema. Check for ionto referral. Improve L thumb and wrist flex/ext mobility, strengthen L hand. Hold paraffin, start US, and/ or laser, K-tape, ROM and strengthening, ice.
--- NOTE | 2019-04-24 16:07 | PT.OTN ---
Current Diagnoses Unilateral primary osteoarthritis of first carpometacarpal joint, right hand (04/24/19) Unilateral primary osteoarthritis of first carpometacarpal joint, left hand (04/24/19) Physical Therapy Treatment Note PT-OP-A Visit Information Start: 04/01/19 12:15 Freq: Status: Active Protocol: Document 04/24/19 13:45 AMB (Rec: 04/24/19 16:07 AMB [id number]) Out-Patient Physical Therapy Visit Information Visit Information Visit Type Treatment Note Visit Start Time 13:45 Visit Stop Time 14:40 Total Visit Minutes 55 Visit Number 8 Number of MILL WASHER Visits 0 PT-OP-B Current Condition Start: 04/01/19 12:15 Freq: Status: Active Protocol: Document 04/01/19 12:46 LRN (Rec: 04/01/19 13:38 LRN [id number]) Current Condition History of Current Condition Onset Date 1 month ago Current Complaints L thumb (CMC) pain at rest and increased with use or pressure History of Current Condition Finished neck physical therapy this week. For the past month was having pain with the L thumb with weightbearing and squeezing objects. His pain is constant in nature rated at 2/10, but with pressure and use the pain increases to 5/10. States when there if pressure applied to the thumb (at the CMC joint) his pain is sharp in nature. He has been on Gabapentin for his neck and found the pain in his R arm was helped, but not in the L thumb. Can't play guitar. Prior Treatments and Tests MRI - 09/30/18 indicates tendinopathy of 1st extensor compartment and mild extensor carpi ulnaris tendinopathy, and probable small perforating tear involving the radial margin of the triangular fibrocartilage disc. Cortisone Injection - 11/10/18 with worsening of pain. Gabapentin that did not change L thumb pain. Future Testing and Treatments Planned Possible surgery to shave down arthritic changes. Treatment Goals Patient/Caregiver Goals Pt goal is to avoid surgery. Decreased constant pain. 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 Yoga class tolerating weightbearing in the L UE. 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 Baseline Function- Recreation/Hobbies Played a guitar 1 hour without pain or difficulty. Baseline Function- Other Occasional soreness of L hand with yoga Current Functional Impairments (Reported) Functional Limitations- ADL's Pain in the L thumb CMC jt is constant at 2/10, with weightbearing pain is 4-5/10. He states he is 1/4 of his normal strength. He is lifting restricted to 20 -40#. Functional Limitations- Work/School Currently is not back to work. Functional Limitations- Recreation/ Hurts playing the [email or web address]. Hobbies Tires after 10 songs, ~20'-30' . Functional Limitations- Other Repositions hand to avoid WBing on the hand (for sit to stand transfers). Personal Factors Other Personal Factors That May Effect Prostate removed due to CA - 5 Therapy/Recovery .5 yrs ago. Arthritis, RAMOS's Hx of Neck surgery - to improve space of nerves PT-OP-C Subjective Start: 04/01/19 12:15 Freq: Status: Active Protocol: Document 04/24/19 13:45 AMB (Rec: 04/24/19 16:07 AMB [email or web address]) OP-PT Subjective Patient Comments Patient Comments Pt is having pain removing glove because it is so tight. Continues to notice swelling. PT-OP-J Posture/Palpation/Skin Start: 04/01/19 12:15 Freq: Status: Active Protocol: Document 04/01/19 12:46 LRN (Rec: 04/01/19 13:38 LRN [id number]) Posture Evaluation Mauri Postural Classification System Elbow Flexion Test 2 Comments Posture Comments Mild fwd head, elevated L shoulder and scapula. Palpation Assessment Location L thumb Palpation Location L thumb at CMC joint and Thenar [place] Palpation Findings Edema,Tenderness PT-OP-M Strength Start: 04/01/19 12:15 Freq: Status: Active Protocol: Document 04/01/19 12:46 LRN (Rec: 04/01/19 13:38 LRN [id number]) Wrist Strength Wrist Manual Muscle Testing Right Reason Not Measured WFL Left Reason Not Measured WFL Finger/Thumb Strength Finger Manual Muscle Testing Right Thumb Flexion (fingers C8) 5 Normal Extension (thumb C8) 5 Normal Adduction 5 Normal Abduction (fingers T1) 5 Normal Left Thumb Flexion (fingers C8) 5 Normal Extension (thumb C8) 3 Fair Adduction 3 Fair Abduction (fingers T1) 4 Good Hand Rn Mds Coordinator/Pinch Strength Hand Dominance Hand Dominance Right Hand Strength Right Tip Pinch (lbs) 24 Comments Rn Mds Coordinator strength (kg): 3 trials: 45, 38, 37 Left Tip Pinch (lbs) 19 Comments Rn Mds Coordinator strength (kg): 3 trials: 40, 35, 30 PT-OP-Q Treatments Start: 04/01/19 12:15 Freq: Status: Active Protocol: Document 04/24/19 13:45 AMB (Rec: 04/24/19 16:07 AMB [id number]) Therapeutic Exercises Sitting Exercises L Thumb PROM Sitting Exercise Name Self Passive Thumb ext & AB Side left Reps/Minutes ~10 x Comments Painfree range Wrist RD/UD stretch Sitting Exercise Name Radial Deviation > Ulnar Deviation stretch Side left Wrist flexion Sitting Exercise Name Wrist flexion stretch and strengthening Side left Reps/Minutes 2' stretch, 15 x 2 strengthening Manual Therapy Treatment Soft Tissue Mobilization 1 Body Location thenar eminence Mobilization Type Myofascial Release,Strumming Intensity/Depth Moderate Body Position Sitting L forearm Body Location L wrist flexors Mobilization Type Strumming,Sustained Pressure Intensity/Depth Moderate Body Position Sitting Joint Mobilizations 1 Joint CMC Direction AP and PA with distraction Grade II Body Position Sitting PT-OP-R Modalities Start: 04/01/19 12:15 Freq: Status: Active Protocol: Document 04/24/19 13:45 AMB (Rec: 04/24/19 16:07 AMB [email or web address]) Hot Pack/Cold Pack Treatment Cold Pack Location L wrist/thenar eminence Patient Position Sitting Treatment Duration (minutes) 10 Ultrasound Therapy Treatment Left Thumb Treatment Duration (minutes) 8 Patient Position Sitting Applicator Size (cm2) 2 Frequency Setting (mHz) 3 Mode Setting Pulsed Duty Cycle 50% Comments 5' for L Thenar [place], 3 MHz, pulsed 3' for around CMC jt and snuff box tendons, 1 MHz, pulsed PT-OP-T Assessment and Plan Start: 04/01/19 12:15 Freq: Status: Active Protocol: Document 04/24/19 13:45 AMB (Rec: 04/24/19 16:07 AMB [email or web address]) Physical Therapy Assessment Assessment Summary Assessment Pt with most pain today over CMC joint but at the palmar side of it. Has been working on stretching but continues to feel pain with gripping activities. Physical Therapy Plan Next Visit Focus/Plan Next Note Type Treatment Note Next Visit Plan Check for POC for use of iontophoresis. Pt to wear L thumb brace as much as possible. Removing brace for recreational and functional activities if can be performed painfree. Pt to do thumb/ wrist ROM ex and wear glove for edema managment. Assess in 1 week for use of K-tape vs glove for edema. Check for ionto referral. Improve L thumb and wrist flex/ext mobility, strengthen L hand. Hold paraffin, start US, and/ or laser, K-tape, ROM and strengthening, ice.
--- NOTE | 2019-04-29 18:31 | PT.OTN ---
Current Diagnoses Unilateral primary osteoarthritis of first carpometacarpal joint, right hand (04/29/19) Unilateral primary osteoarthritis of first carpometacarpal joint, left hand (04/29/19) Physical Therapy Treatment Note PT-OP-A Visit Information Start: 04/01/19 12:15 Freq: Status: Active Protocol: Document 04/29/19 09:07 LRN (Rec: 04/29/19 10:03 LRN [id number]) Out-Patient Physical Therapy Visit Information Visit Information Visit Type Treatment Note Visit Start Time 09:07 Visit Stop Time 10:00 Total Visit Minutes 53 Visit Number 9 Number of INFORMATION TECHNOLOGY CONSULTANT Visits 0 Evaluation Information Evaluation Date 04/01/19 Precautions Precautions Lifting restriction: 20-40# Recent Cervical surgery with spacers placed. PT-OP-B Current Condition Start: 04/01/19 12:15 Freq: Status: Active Protocol: Document 04/01/19 12:46 LRN (Rec: 04/01/19 13:38 LRN [id number]) Current Condition History of Current Condition Onset Date 1 month ago Current Complaints L thumb (CMC) pain at rest and increased with use or pressure History of Current Condition Finished neck physical therapy this week. For the past month was having pain with the L thumb with weightbearing and squeezing objects. His pain is constant in nature rated at 2/10, but with pressure and use the pain increases to 5/10. States when there if pressure applied to the thumb (at the CMC joint) his pain is sharp in nature. He has been on Gabapentin for his neck and found the pain in his R arm was helped, but not in the L thumb. Can't play guitar. Prior Treatments and Tests MRI - 09/30/18 indicates tendinopathy of 1st extensor compartment and mild extensor carpi ulnaris tendinopathy, and probable small perforating tear involving the radial margin of the triangular fibrocartilage disc. Cortisone Injection - 11/10/18 with worsening of pain. Gabapentin that did not change L thumb pain. Future Testing and Treatments Planned Possible surgery to shave down arthritic changes. Treatment Goals Patient/Caregiver Goals Pt goal is to avoid surgery. Decreased constant pain. 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 Yoga class tolerating weightbearing in the L UE. 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 Baseline Function- Recreation/Hobbies Played a guitar 1 hour without pain or difficulty. Baseline Function- Other Occasional soreness of L hand with yoga Current Functional Impairments (Reported) Functional Limitations- ADL's Pain in the L thumb CMC jt is constant at 2/10, with weightbearing pain is 4-5/10. He states he is 1/4 of his normal strength. He is lifting restricted to 20 -40#. Functional Limitations- Work/School Currently is not back to work. Functional Limitations- Recreation/ Hurts playing the guitar. Hobbies Tires after 10 songs, ~20'-30' . Functional Limitations- Other Repositions hand to avoid WBing on the hand (for sit to stand transfers). Personal Factors Other Personal Factors That May Effect Prostate removed due to CA - 5 Therapy/Recovery .5 yrs ago. Arthritis, RAMOS's Hx of Neck surgery - to improve space of nerves PT-OP-C Subjective Start: 04/01/19 12:15 Freq: Status: Active Protocol: Document 04/29/19 09:07 LRN (Rec: 04/29/19 10:03 LRN [id number]) OP-PT Subjective Patient Comments Patient Comments States he did yoga 4 days ago and was able to put pressure on the hands with discomfort, but not enought to have to roll off of it. States once it popped after STM and it didn't bother him much for the rest of the day. PT-OP-J Posture/Palpation/Skin Start: 04/01/19 12:15 Freq: Status: Active Protocol: Document 04/01/19 12:46 LRN (Rec: 04/01/19 13:38 LRN [id number]) Posture Evaluation Mauri Postural Classification System Elbow Flexion Test 2 Comments Posture Comments Mild fwd head, elevated L shoulder and scapula. Palpation Assessment Location L thumb Palpation Location L thumb at CMC joint and Thenar [place] Palpation Findings Edema,Tenderness PT-OP-M Strength Start: 04/01/19 12:15 Freq: Status: Active Protocol: Document 04/01/19 12:46 LRN (Rec: 04/01/19 13:38 LRN [id number]) Wrist Strength Wrist Manual Muscle Testing Right Reason Not Measured WFL Left Reason Not Measured WFL Finger/Thumb Strength Finger Manual Muscle Testing Right Thumb Flexion (fingers C8) 5 Normal Extension (thumb C8) 5 Normal Adduction 5 Normal Abduction (fingers T1) 5 Normal Left Thumb Flexion (fingers C8) 5 Normal Extension (thumb C8) 3 Fair Adduction 3 Fair Abduction (fingers T1) 4 Good Hand Outcomes Manager/Pinch Strength Hand Dominance Hand Dominance Right Hand Strength Right Tip Pinch (lbs) 24 Comments Outcomes Manager strength (kg): 3 trials: 45, 38, 37 Left Tip Pinch (lbs) 19 Comments Outcomes Manager strength (kg): 3 trials: 40, 35, 30 PT-OP-Q Treatments Start: 04/01/19 12:15 Freq: Status: Active Protocol: Document 04/29/19 09:07 LRN (Rec: 04/29/19 10:03 LRN [id number]) Therapeutic Exercises Sitting Exercises L Thumb PROM Sitting Exercise Name Self Passive Thumb ext & AB Side left Reps/Minutes ~10 x Comments Painfree range UD/RD strengthening Sitting Exercise Name UD/RD strengthening Side left Resistance 1# Reps/Minutes 8x 2 Comments Bilateral strengthening w/ focus on L hand Aleksandra stretch Sitting Exercise Name Thumb extensor stretch - Gentle Side left Reps/Minutes 10 hold x 10. Wrist RD/UD stretch Sitting Exercise Name Radial Deviation > Ulnar Deviation stretch Side left Wrist flexion Sitting Exercise Name Wrist flexion stretch and strengthening Side left Reps/Minutes 2' stretch, 15 x 2 strengthening bicep curls Sitting Exercise Name 3 way Side bilateral Resistance 5# Equipment Used round weights Reps/Minutes 10 ea Comments focus on thumb placement Standing Exercises RD stretch Standing Exercise Name Arms in all positions for stretch to RD's Reps/Minutes 2' Weight bearing L hand Standing Exercise Name Weight bearing off wall. Self-Care/Home Management Treatment Education Patient Education Joint Protection Other Education I/S pt in how to don compression glove with K-tape. PT-OP-R Modalities Start: 04/01/19 12:15 Freq: Status: Active Protocol: Document 04/29/19 09:07 LRN (Rec: 04/29/19 10:03 LRN [id number]) Hot Pack/Cold Pack Treatment Cold Pack Location L wrist/thenar eminence Patient Position Sitting Treatment Duration (minutes) 10 Ultrasound Therapy Treatment Left Thumb Treatment Duration (minutes) 8 Patient Position Sitting Applicator Size (cm2) 2 Frequency Setting (mHz) 3 Mode Setting Pulsed Duty Cycle 50% Comments 5' for L Thenar [place], 3 MHz, pulsed 3' for around CMC jt and snuff box tendons, 1 MHz, pulsed PT-OP-T Assessment and Plan Start: 04/01/19 12:15 Freq: Status: Active Protocol: Document 04/29/19 09:07 LRN (Rec: 04/29/19 10:03 LRN [id number]) Physical Therapy Assessment Goals Four Impairment Swelling in L Thenar [place] Short Term Goal (STG) Pt educated in joint protection and edema management techniques. 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 LTG Duration 05/13/19 Two Impairment Constant L thumb pain hindering activity tolerance. Short Term Goal (STG) Decrease pain by 50% (1/10 at rest & 2-3/10 with palpation). STG Duration 04/29/19 Mcfp Goal (LTG) Eliminate L thumb pain at rest and mild discomfort (1-2/10) with weightbearing activities. LTG Duration 05/13/19 One Impairment Lacks appropriate self care program Geriatric Physical Therapist Goal (LTG) Pt will be independent with a self care HEP. LTG Duration 05/27/19 Assessment Summary Assessment POC not received; therefore not able to do Iontophoresis. Pt had an episode of temporary pain relief after popping at the CMC. Pt appears to be consistent with wearing his thumb splint at home via self reports. Pt is now able to tolerate some WBing through the L thumb but tends to roll off the thenar eminence. Pt instability present at CMC joint. Physical Therapy Plan Frequency and Duration Frequency of Treatment 2x/Week Plan of Care Start Date 04/01/19 Plan of Care End Date 05/27/19 Next Visit Focus/Plan Next Note Type Treatment Note Next Visit Plan Check if pt contacted MD for use of iontophoresis. Assess response to use of K-tape and glove for guitar plan and recreational WBing through the thumb. Pt to wear L thumb brace as much as possible. Removing brace for recreational and functional activities if can be performed painfree. Pt to do thumb/ wrist ROM ex and wear glove for edema managment. Assess in 1 week for use of K-tape vs glove for edema. Check for ionto referral. Improve L thumb and wrist flex/ext mobility, strengthen L hand. Continue w/US, might try laser at thenar eminence, cont if appropriate K-tape and use of compression glove. Thumb MWM for ROM and strengthening as tolerated, ice.
--- NOTE | 2019-05-01 14:28 | PT.OTN ---
Current Diagnoses Unilateral primary osteoarthritis of first carpometacarpal joint, right hand (05/01/19) Unilateral primary osteoarthritis of first carpometacarpal joint, left hand (05/01/19) Physical Therapy Treatment Note PT-OP-A Visit Information Start: 04/01/19 12:15 Freq: Status: Active Protocol: Document 05/01/19 13:00 AMB (Rec: 05/01/19 13:57 AMB [id number]) Out-Patient Physical Therapy Visit Information Visit Information Visit Type Treatment Note Visit Start Time 13:00 Visit Stop Time 13:53 Total Visit Minutes 53 Visit Number 10 Number of KEY PERSON Visits 0 PT-OP-B Current Condition Start: 04/01/19 12:15 Freq: Status: Active Protocol: Document 04/01/19 12:46 LRN (Rec: 04/01/19 13:38 LRN [id number]) Current Condition History of Current Condition Onset Date 1 month ago Current Complaints L thumb (CMC) pain at rest and increased with use or pressure History of Current Condition Finished neck physical therapy this week. For the past month was having pain with the L thumb with weightbearing and squeezing objects. His pain is constant in nature rated at 2/10, but with pressure and use the pain increases to 5/10. States when there if pressure applied to the thumb (at the CMC joint) his pain is sharp in nature. He has been on Gabapentin for his neck and found the pain in his R arm was helped, but not in the L thumb. Can't play guitar. Prior Treatments and Tests MRI - 09/30/18 indicates tendinopathy of 1st extensor compartment and mild extensor carpi ulnaris tendinopathy, and probable small perforating tear involving the radial margin of the triangular fibrocartilage disc. Cortisone Injection - 11/10/18 with worsening of pain. Gabapentin that did not change L thumb pain. Future Testing and Treatments Planned Possible surgery to shave down arthritic changes. Treatment Goals Patient/Caregiver Goals Pt goal is to avoid surgery. Decreased constant pain. Improve strength of double end trimmer. Yoga class tolerating weightbearing in the L UE. 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 Baseline Function- Recreation/Hobbies Played a guitar 1 hour without pain or difficulty. Baseline Function- Other Occasional soreness of L hand with yoga Current Functional Impairments (Reported) Functional Limitations- ADL's Pain in the L thumb CMC jt is constant at 2/10, with weightbearing pain is 4-5/10. He states he is 1/4 of his normal strength. He is lifting restricted to 20 -40#. Functional Limitations- Work/School Currently is not back to work. Functional Limitations- Recreation/ Hurts playing the Agitar. Hobbies Tires after 10 songs, ~20'-30' . Functional Limitations- Other Repositions hand to avoid WBing on the hand (for sit to stand transfers). Personal Factors Other Personal Factors That May Effect Prostate removed due to CA - 5 Therapy/Recovery .5 yrs ago. Arthritis, RAMOS's Hx of Neck surgery - to improve space of nerves PT-OP-C Subjective Start: 04/01/19 12:15 Freq: Status: Active Protocol: Document 05/01/19 13:00 AMB (Rec: 05/01/19 13:57 AMB [id number]) OP-PT Subjective Patient Comments Patient Comments Pt feels pain is variable, some days are good, some days not as good, depends on how he moves the thumb. PT-OP-J Posture/Palpation/Skin Start: 04/01/19 12:15 Freq: Status: Active Protocol: Document 04/01/19 12:46 LRN (Rec: 04/01/19 13:38 LRN [id number]) Posture Evaluation Mauri Postural Classification System Elbow Flexion Test 2 Comments Posture Comments Mild fwd head, elevated L shoulder and scapula. Palpation Assessment Location L thumb Palpation Location L thumb at CMC joint and Thenar [place] Palpation Findings Edema,Tenderness PT-OP-M Strength Start: 04/01/19 12:15 Freq: Status: Active Protocol: Document 04/01/19 12:46 LRN (Rec: 04/01/19 13:38 LRN [id number]) Wrist Strength Wrist Manual Muscle Testing Right Reason Not Measured WFL Left Reason Not Measured WFL Finger/Thumb Strength Finger Manual Muscle Testing Right Thumb Flexion (fingers C8) 5 Normal Extension (thumb C8) 5 Normal Adduction 5 Normal Abduction (fingers T1) 5 Normal Left Thumb Flexion (fingers C8) 5 Normal Extension (thumb C8) 3 Fair Adduction 3 Fair Abduction (fingers T1) 4 Good Hand Hand Tile Maker/Pinch Strength Hand Dominance Hand Dominance Right Hand Strength Right Tip Pinch (lbs) 24 Comments Hand Tile Maker strength (kg): 3 trials: 45, 38, 37 Left Tip Pinch (lbs) 19 Comments Hand Tile Maker strength (kg): 3 trials: 40, 35, 30 PT-OP-Q Treatments Start: 04/01/19 12:15 Freq: Status: Active Protocol: Document 05/01/19 13:00 AMB (Rec: 05/01/19 14:28 AMB [id number]) Therapeutic Exercises Sitting Exercises L Thumb PROM Sitting Exercise Name Self Passive Thumb ext & AB Side left Reps/Minutes ~10 x Comments Painfree range UD/RD strengthening Sitting Exercise Name UD/RD strengthening Side left Resistance 1# Reps/Minutes 8x 2 Comments Bilateral strengthening w/ focus on L hand Wrist RD/UD stretch Sitting Exercise Name Radial Deviation > Ulnar Deviation stretch Side left Wrist flexion Sitting Exercise Name Wrist flexion stretch and strengthening Side left Reps/Minutes 2' stretch, 15 x 2 strengthening Manual Therapy Treatment Soft Tissue Mobilization 1 Body Location thenar eminence Mobilization Type Myofascial Release,Strumming Intensity/Depth Moderate Body Position Sitting L forearm Body Location L wrist flexors Mobilization Type Strumming,Sustained Pressure Intensity/Depth Moderate Body Position Sitting PT-OP-R Modalities Start: 04/01/19 12:15 Freq: Status: Active Protocol: Document 05/01/19 13:00 AMB (Rec: 05/01/19 14:28 AMB [id number]) Hot Pack/Cold Pack Treatment Cold Pack Location L wrist/thenar eminence Patient Position Sitting Treatment Duration (minutes) 10 Ultrasound Therapy Treatment Left Thumb Treatment Duration (minutes) 8 Patient Position Sitting Applicator Size (cm2) 2 Frequency Setting (mHz) 3 Mode Setting Pulsed Duty Cycle 50% Comments 5' for L Thenar [place], 3 MHz, pulsed 3' for around CMC jt and snuff box tendons, 1 MHz, pulsed PT-OP-T Assessment and Plan Start: 04/01/19 12:15 Freq: Status: Active Protocol: Document 05/01/19 13:00 AMB (Rec: 05/01/19 14:28 AMB [id number]) Physical Therapy Assessment Assessment Summary Assessment Pain with extension at the thumb today, but as long as he keeps in neutral tolerates forearm/ wrist strengthening/ stretching well. Physical Therapy Plan Next Visit Focus/Plan Next Note Type Treatment Note Next Visit Plan Check if pt contacted MD for use of iontophoresis. Assess response to use of K-tape and glove for guitar plan and recreational WBing through the thumb. Pt to wear L thumb brace as much as possible. Removing brace for recreational and functional activities if can be performed painfree. Pt to do thumb/ wrist ROM ex and wear glove for edema managment. Assess in 1 week for use of K-tape vs glove for edema. Check for ionto referral. Improve L thumb and wrist flex/ext mobility, strengthen L hand. Continue w/US, might try laser at thenar eminence, cont if appropriate K-tape and use of compression glove. Thumb MWM for ROM and strengthening as tolerated, ice.
--- NOTE | 2019-05-05 10:45 | PT.OTN ---
Current Diagnoses Unilateral primary osteoarthritis of first carpometacarpal joint, right hand (05/05/19) Unilateral primary osteoarthritis of first carpometacarpal joint, left hand (05/05/19) Physical Therapy Treatment Note PT-OP-A Visit Information Start: 04/01/19 12:15 Freq: Status: Active Protocol: Document 05/05/19 09:51 LRN (Rec: 05/05/19 10:54 LRN [id number]) Out-Patient Physical Therapy Visit Information Visit Information Visit Type Treatment Note Visit Note Request for use of Iontophoresis with referral faxed to MD office. Visit Start Time 09:51 Visit Stop Time 10:39 Total Visit Minutes 48 Visit Number 11 Number of RAIL CAR REPAIRER Visits 0 Evaluation Information Evaluation Date 04/01/19 Precautions Precautions Lifting restriction: 20-40# Recent Cervical surgery with spacers placed. PT-OP-B Current Condition Start: 04/01/19 12:15 Freq: Status: Active Protocol: Document 04/01/19 12:46 LRN (Rec: 04/01/19 13:38 LRN [id number]) Current Condition History of Current Condition Onset Date 1 month ago Current Complaints L thumb (CMC) pain at rest and increased with use or pressure History of Current Condition Finished neck physical therapy this week. For the past month was having pain with the L thumb with weightbearing and squeezing objects. His pain is constant in nature rated at 2/10, but with pressure and use the pain increases to 5/10. States when there if pressure applied to the thumb (at the CMC joint) his pain is sharp in nature. He has been on Gabapentin for his neck and found the pain in his R arm was helped, but not in the L thumb. Can't play guitar. Prior Treatments and Tests MRI - 09/30/18 indicates tendinopathy of 1st extensor compartment and mild extensor carpi ulnaris tendinopathy, and probable small perforating tear involving the radial margin of the triangular fibrocartilage disc. Cortisone Injection - 11/10/18 with worsening of pain. Gabapentin that did not change L thumb pain. Future Testing and Treatments Planned Possible surgery to shave down arthritic changes. Treatment Goals Patient/Caregiver Goals Pt goal is to avoid surgery. Decreased constant pain. 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 Yoga class tolerating weightbearing in the L UE. 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 Baseline Function- Recreation/Hobbies Played a guitar 1 hour without pain or difficulty. Baseline Function- Other Occasional soreness of L hand with yoga Current Functional Impairments (Reported) Functional Limitations- ADL's Pain in the L thumb CMC jt is constant at 2/10, with weightbearing pain is 4-5/10. He states he is 1/4 of his normal strength. He is lifting restricted to 20 -40#. Functional Limitations- Work/School Currently is not back to work. Functional Limitations- Recreation/ Hurts playing the guitar. Hobbies Tires after 10 songs, ~20'-30' . Functional Limitations- Other Repositions hand to avoid WBing on the hand (for sit to stand transfers). Personal Factors Other Personal Factors That May Effect Prostate removed due to CA - 5 Therapy/Recovery .5 yrs ago. Arthritis, RAMOS's Hx of Neck surgery - to improve space of nerves PT-OP-C Subjective Start: 04/01/19 12:15 Freq: Status: Active Protocol: Document 05/05/19 09:51 LRN (Rec: 05/05/19 10:54 LRN [id number]) OP-PT Subjective Patient Comments Patient Comments Same, sometimes worse than other times. Sore after last session, but thinks it helped loosen the wrist. Noting problem area is at CMC joint. Reports at rest pain is 2-3/ 10, with weightbearing, pain is 4/10 felt as sharp with pressure. PT-OP-J Posture/Palpation/Skin Start: 04/01/19 12:15 Freq: Status: Active Protocol: Document 04/01/19 12:46 LRN (Rec: 04/01/19 13:38 LRN [id number]) Posture Evaluation Mauri Postural Classification System Elbow Flexion Test 2 Comments Posture Comments Mild fwd head, elevated L shoulder and scapula. Palpation Assessment Location L thumb Palpation Location L thumb at CMC joint and Thenar [place] Palpation Findings Edema,Tenderness PT-OP-M Strength Start: 04/01/19 12:15 Freq: Status: Active Protocol: Document 05/05/19 09:51 LRN (Rec: 05/06/19 08:37 LRN [id number]) Hand Medicine Man/Pinch Strength Hand Strength Right Tip Pinch (lbs) 24 Comments Medicine Man strength (kg): 3 trials: 45, 38, 37 Left Comments Medicine Man strength (kg): 3 trials: 32, 36, 32. No pain, pt avoided using thumb. PT-OP-Q Treatments Start: 04/01/19 12:15 Freq: Status: Active Protocol: Document 05/05/19 09:51 LRN (Rec: 05/05/19 10:54 LRN [id number]) Therapeutic Exercises Sitting Exercises L Thumb PROM Sitting Exercise Name Self Passive Thumb ext & AB Side left Reps/Minutes ~10 x Comments Painfree range UD/RD strengthening Sitting Exercise Name UD/RD strengthening Side left Resistance 1# Comments attempted, but stopped due to pain Gripping Sitting Exercise Name Gripping without object Side left Reps/Minutes 10 sec hold Comments Medicine Man strength measured. Aleksandra stretch Sitting Exercise Name Thumb extensor stretch - Gentle Side left Reps/Minutes 10 hold x 10. Wrist RD/UD stretch Sitting Exercise Name Radial Deviation > Ulnar Deviation stretch Side left bicep curls Sitting Exercise Name 3 way Side bilateral Resistance 5# Equipment Used round weights Reps/Minutes 10 ea Comments focus on thumb placement Standing Exercises Weight bearing L hand Standing Exercise Name Weight bearing on sit surface Comments Low tolerance. Manual Therapy Treatment Soft Tissue Mobilization 1 Body Location thenar eminence Mobilization Type Strumming,Sustained Pressure Intensity/Depth Moderate Body Position Sitting L forearm Body Location L wrist flexors Mobilization Type Myofascial Release,Strumming, Sustained Pressure Intensity/Depth Moderate Body Position Sitting Joint Mobilizations L carpel bones Joint Carpel joints Direction PA, AP Grade II Taping L Wrist Body Location L wrist Treatment Focus Stabilization and space correction Skin Inspection Good Comments 6' for deQuervain's and thenar eminence space correction. Self-Care/Home Management Treatment Activities Self-Care/Home Management Activities I/S pt in self TrP treatment at L thenar eminence. PT-OP-R Modalities Start: 04/01/19 12:15 Freq: Status: Active Protocol: Document 05/05/19 09:51 LRN (Rec: 05/05/19 10:54 LRN [id number]) Other Unlisted Modality Treatment Laser Name of Modality Laser Parameters 1.06, 60.3 J, Muscle, Chronic , high pulsed PT-OP-T Assessment and Plan Start: 04/01/19 12:15 Freq: Status: Active Protocol: Document 05/05/19 09:51 LRN (Rec: 05/05/19 10:54 LRN [id number]) Physical Therapy Assessment Rehab Potential Rehabilitation Potential Fair Evaluation Complexity Number of Personal Factors/Comorbidities 3 or More Number of Body Systems Impaired 4 or More Clinical Presentation at Evaluation Evolving Impairments Impairments Activity Tolerance,Edema,Pain, ROM,Strength Goals Four Impairment Swelling in L Thenar [place] Short Term Goal (STG) Pt educated in joint protection and edema management techniques. STG Duration 04/05/19 (04/08/19: GOAL MET) Three Impairment Decreased L hand antitank assault gunner Halfway Goal (LTG) Pt will demonstrate normal antitank assault gunner strength without pain. LTG Duration 06/13/19 (05/05/19: Pain only at R thumb, CMC jt. Strength less but less pn) Two Impairment Constant L thumb pain hindering activity tolerance. Short Term Goal (STG) Decrease pain by 50% (1/10 at rest & 2-3/10 with palpation). STG Duration 05/30/19 (05/05/19: No significant change, except improved WB tolerance) Roller Leveler Goal (LTG) Eliminate L thumb pain at rest and mild discomfort (1-2/10) with weightbearing activities. LTG Duration 06/13/19 (05/05/19: Goal not met) One Impairment Lacks appropriate self care program Roller Leveler Goal (LTG) Pt will be independent with a self care HEP. LTG Duration 07/05/2019 (05/05/19: Progressing ) Assessment Summary Assessment Pt has been wearing his thumb brace for ~4 weeks and would benefit from continued PT for another 6 weeks to wean him off his brace (in 2-4 weeks) if pain is controlled. His pain has changed from his L CMC joint with radiation into his forearm to localized to his CMC joint. I have not been able to use iontophoresis , but would like to start this treatment with the return of his signed Plan of Care. I am hopeful that he will obtain greater pain relief with this treatment (initially 3 days consecutively, followed by 2x/ week) and that I will be able to initiate strengthening and work towards weightbearing tolerance. I am a little baffled why his thenar eminence remains so swollen and warm to touch. The pt may need to increase his use of ice at home to relax the muscle and reduce inflammation to the area. I would recommend continuation of therapy for another 6-8 weeks to decrease L CMC joint pain, improve L wrist/thumb mobility and increase hand/wrist/UE strength and stability in order to progress the pt towards return to work. Physical Therapy Plan Frequency and Duration Frequency of Treatment 2x/Week Plan of Care Start Date 05/06/19 Plan of Care End Date 07/05/19 Therapeutic Interventions Therapeutic Interventions Home Exercise Program,Joint Mobilizations,Manual Therapy, Patient/Caregiver Education, Self-Care/Home Management,Soft Tissue Mobilization,Taping, Therapeutic Exercises Modalities Cold Pack/Ice Massage,Hot Packs,Paraffin Bath,Ultrasound Next Visit Focus/Plan Next Note Type Treatment Note Next Visit Plan Check for signed POC for use of iontophoresis. Monitor response to use of K-tape and glove for guitar plan and recreational WBing through the thumb. Pt to wear L thumb brace as much as possible. Removing brace for recreational and functional activities if can be performed painfree. Pt to do thumb/ wrist ROM ex and wear glove for edema management. Assess the use of K-tape vs glove for edema. Improve L thumb and wrist flex/ext mobility, strengthen L hand. US or laser at thenar eminence for edema, cont if appropriate K- tape and use of compression glove. Thumb MWM for ROM and strengthening as tolerated, ice.
--- NOTE | 2019-05-09 10:29 | PT.OTN ---
Current Diagnoses Unilateral primary osteoarthritis of first carpometacarpal joint, right hand (05/09/19) Unilateral primary osteoarthritis of first carpometacarpal joint, left hand (05/09/19) Physical Therapy Treatment Note PT-OP-A Visit Information Start: 04/01/19 12:15 Freq: Status: Active Protocol: Document 05/09/19 09:04 LRN (Rec: 05/09/19 09:48 LRN [id number]) Out-Patient Physical Therapy Visit Information Visit Information Visit Type Treatment Note Visit Start Time 09:04 Visit Stop Time 09:55 Total Visit Minutes 56 Visit Number 12 Number of MOVIE PRODUCER Visits 0 Evaluation Information Evaluation Date 04/01/19 Precautions Precautions Lifting restriction: 20-40# Recent Cervical surgery with spacers placed. PT-OP-B Current Condition Start: 04/01/19 12:15 Freq: Status: Active Protocol: Document 04/01/19 12:46 LRN (Rec: 04/01/19 13:38 LRN [id number]) Current Condition History of Current Condition Onset Date 1 month ago Current Complaints L thumb (CMC) pain at rest and increased with use or pressure History of Current Condition Finished neck physical therapy this week. For the past month was having pain with the L thumb with weightbearing and squeezing objects. His pain is constant in nature rated at 2/10, but with pressure and use the pain increases to 5/10. States when there if pressure applied to the thumb (at the CMC joint) his pain is sharp in nature. He has been on Gabapentin for his neck and found the pain in his R arm was helped, but not in the L thumb. Can't play guitar. Prior Treatments and Tests MRI - 09/30/18 indicates tendinopathy of 1st extensor compartment and mild extensor carpi ulnaris tendinopathy, and probable small perforating tear involving the radial margin of the triangular fibrocartilage disc. Cortisone Injection - 11/10/18 with worsening of pain. Gabapentin that did not change L thumb pain. Future Testing and Treatments Planned Possible surgery to shave down arthritic changes. Treatment Goals Patient/Caregiver Goals Pt goal is to avoid surgery. Decreased constant pain. 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 Yoga class tolerating weightbearing in the L UE. 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 Baseline Function- Recreation/Hobbies Played a guitar 1 hour without pain or difficulty. Baseline Function- Other Occasional soreness of L hand with yoga Current Functional Impairments (Reported) Functional Limitations- ADL's Pain in the L thumb CMC jt is constant at 2/10, with weightbearing pain is 4-5/10. He states he is 1/4 of his normal strength. He is lifting restricted to 20 -40#. Functional Limitations- Work/School Currently is not back to work. Functional Limitations- Recreation/ Hurts playing the [employer]. Hobbies Tires after 10 songs, ~20'-30' . Functional Limitations- Other Repositions hand to avoid WBing on the hand (for sit to stand transfers). Personal Factors Other Personal Factors That May Effect Prostate removed due to CA - 5 Therapy/Recovery .5 yrs ago. 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 Right no doesn' t feel like it can pop. PT-OP-J Posture/Palpation/Skin Start: 04/01/19 12:15 Freq: Status: Active Protocol: Document 04/01/19 12:46 LRN (Rec: 04/01/19 13:38 LRN [id number]) Posture Evaluation Mauri Postural Classification System Elbow Flexion Test 2 Comments Posture Comments Mild fwd head, elevated L shoulder and scapula. Palpation Assessment Location L thumb Palpation Location L thumb at CMC joint and Thenar Milton Palpation Findings Edema,Tenderness PT-OP-M Strength Start: 04/01/19 12:15 Freq: Status: Active Protocol: Document 05/05/19 09:51 LRN (Rec: 05/06/19 08:37 LRN [id number]) Hand Hose Tender/Pinch Strength Hand Strength Right Tip Pinch (lbs) 24 Comments Hose Tender strength (kg): 3 trials: 45, 38, 37 Left Comments Hose Tender strength (kg): 3 trials: 32, 36, 32. No pain, pt avoided using thumb. PT-OP-Q Treatments Start: 04/01/19 12:15 Freq: Status: Active Protocol: Document 05/09/19 09:04 LRN (Rec: 05/09/19 09:48 LRN [id number]) Therapeutic Exercises Sitting Exercises UD/RD strengthening Sitting Exercise Name Isometric UD/RD strengthening Side left Resistance 2# Reps/Minutes 15x Aleksandra stretch Sitting Exercise Name Thumb extensor stretch - Gentle Side left Reps/Minutes 10 hold x 10. Wrist RD/UD stretch Sitting Exercise Name Radial Deviation > Ulnar Deviation stretch Side left Wrist flexion Sitting Exercise Name Wrist flexion stretch Side left Reps/Minutes 2' stretch wrist extension Sitting Exercise Name wrist ext stretch Side left Reps/Minutes 2' stretch Standing Exercises Weight bearing L hand Standing Exercise Name Weight bearing on sit surface Comments good tolerance except when leaning to R w/grtr WBing into thumb. Manual Therapy Treatment Soft Tissue Mobilization 1 Body Location thenar eminence Mobilization Type Strumming,Sustained Pressure Intensity/Depth Moderate Body Position Sitting Joint Mobilizations L carpel bones Joint Carpel joints Direction PA, AP Grade II PT-OP-R Modalities Start: 04/01/19 12:15 Freq: Status: Active Protocol: Document 05/09/19 09:04 LRN (Rec: 05/09/19 09:48 LRN [id number]) Hot Pack/Cold Pack Treatment Cold Pack Location L wrist/thenar eminence Patient Position Sitting Treatment Duration (minutes) 10 Ultrasound Therapy Treatment Left Thumb Treatment Duration (minutes) 8 Patient Position Sitting Applicator Size (cm2) 2 Frequency Setting (mHz) 3 Mode Setting Pulsed Duty Cycle 50% Comments 5' for L Thenar Milton, 3 MHz, pulsed 3' for around CMC jt and snuff box tendons, 1 MHz, pulsed Other Unlisted Modality Treatment Laser Name of Modality Laser Body Position Sitting PT-OP-T Assessment and Plan Start: 04/01/19 12:15 Freq: Status: Active Protocol: Document 05/09/19 09:04 LRN (Rec: 05/09/19 09:48 LRN [id number]) Physical Therapy Assessment Goals Two Impairment Constant L thumb pain hindering activity tolerance. Short Term Goal (STG) Decrease pain by 50% (1/10 at rest & 2-3/10 with palpation). STG Duration 05/30/19 (05/05/19: No significant change, except improved WB tolerance) Detention Goal (LTG) Eliminate L thumb pain at rest and mild discomfort (1-2/10) with weightbearing activities. (05/09/19: Could WB with tolerable discomfort except when leaning R and greater pressure is applied to thumb). LTG Duration 06/13/19 (05/09/19: Goal partially met) Assessment Summary Assessment Greater tolerance to WBing after pt noted L thumb joint popped after US and Laser treatment. Pt feels the thumb brace keeps it in the place that the popping places it in, but the brace makes it stiff. He has pain in the thenar eminence after popping ( noted in area of swelling). Pt willing to try to go without taping and using compressive glove at home. Laser treatment didn't seem to effect swelling at L CMC jt, but US appeared to help decreased swelling in L thenar eminence. Physical Therapy Plan Frequency and Duration Frequency of Treatment 2x/Week Plan of Care Start Date 05/06/19 Plan of Care End Date 07/05/19 Next Visit Focus/Plan Next Note Type Treatment Note Next Visit Plan Continue PT for another 6 weeks to wean him off his brace (in 2-4 weeks) if pain is controlled. Check for signed POC for use of iontophoresis. Monitor response to use of glove for guitar playing (without K- tape the next few days) and recreational WBing through the L thumb. Pt to wear L thumb brace as much as possible. Removing brace for recreational and functional activities if can be performed painfree. Pt to do thumb/ wrist ROM ex and wear glove for edema management. Assess the response to use of glove for edema w/o K-tape. Improve L thumb and wrist flex/ext mobility, strengthen L hand. US or laser at thenar eminence for edema, cont if appropriate K-tape and use of compression glove. Thumb MWM for ROM and strengthening as tolerated, ice.
--- NOTE | 2019-05-12 10:16 | PT-OP ANOTE ---
Spoke with LILIAN Connor @ Dr. Deleon's office. POC signed by Tung Cruz, PAC for Sandy Monaco, PAC for Dr. Cintron.
--- NOTE | 2019-05-12 16:48 | PT.OTN ---
Current Diagnoses Unilateral primary osteoarthritis of first carpometacarpal joint, right hand (05/12/19) Unilateral primary osteoarthritis of first carpometacarpal joint, left hand (05/12/19) Physical Therapy Treatment Note PT-OP-A Visit Information Start: 04/01/19 12:15 Freq: Status: Active Protocol: Document 05/12/19 09:49 LRN (Rec: 05/12/19 10:36 LRN [id number]) Out-Patient Physical Therapy Visit Information Visit Information Visit Type Treatment Note Visit Start Time 09:49 Visit Stop Time 10:34 Total Visit Minutes 46 Visit Number 13 Number of CANNON FIRE DIRECTION SPECIALIST Visits 0 Evaluation Information Evaluation Date 04/01/19 Precautions Precautions Lifting restriction: 20-40# Recent Cervical surgery with spacers placed. PT-OP-B Current Condition Start: 04/01/19 12:15 Freq: Status: Active Protocol: Document 04/01/19 12:46 LRN (Rec: 04/01/19 13:38 LRN [id number]) Current Condition History of Current Condition Onset Date 1 month ago Current Complaints L thumb (CMC) pain at rest and increased with use or pressure History of Current Condition Finished neck physical therapy this week. For the past month was having pain with the L thumb with weightbearing and squeezing objects. His pain is constant in nature rated at 2/10, but with pressure and use the pain increases to 5/10. States when there if pressure applied to the thumb (at the CMC joint) his pain is sharp in nature. He has been on Gabapentin for his neck and found the pain in his R arm was helped, but not in the L thumb. Can't play guitar. Prior Treatments and Tests MRI - 09/30/18 indicates tendinopathy of 1st extensor compartment and mild extensor carpi ulnaris tendinopathy, and probable small perforating tear involving the radial margin of the triangular fibrocartilage disc. Cortisone Injection - 11/10/18 with worsening of pain. Gabapentin that did not change L thumb pain. Future Testing and Treatments Planned Possible surgery to shave down arthritic changes. Treatment Goals Patient/Caregiver Goals Pt goal is to avoid surgery. Decreased constant pain. 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 Yoga class tolerating weightbearing in the L UE. 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 Baseline Function- Recreation/Hobbies Played a guitar 1 hour without pain or difficulty. Baseline Function- Other Occasional soreness of L hand with yoga Current Functional Impairments (Reported) Functional Limitations- ADL's Pain in the L thumb CMC jt is constant at 2/10, with weightbearing pain is 4-5/10. He states he is 1/4 of his normal strength. He is lifting restricted to 20 -40#. Functional Limitations- Work/School Currently is not back to work. Functional Limitations- Recreation/ Hurts playing the guitar. Hobbies Tires after 10 songs, ~20'-30' . Functional Limitations- Other Repositions hand to avoid WBing on the hand (for sit to stand transfers). Personal Factors Other Personal Factors That May Effect Prostate removed due to CA - 5 Therapy/Recovery .5 yrs ago. Arthritis, RAMOS's Hx of Neck surgery - to improve space of nerves PT-OP-C Subjective Start: 04/01/19 12:15 Freq: Status: Active Protocol: Document 05/12/19 09:49 LRN (Rec: 05/12/19 10:36 LRN [id number]) OP-PT Subjective Patient Comments Patient Comments Sore today, not sure why. Pain rated 2-3/10. States he fell asleep last night without his wrist brace on. PT-OP-J Posture/Palpation/Skin Start: 04/01/19 12:15 Freq: Status: Active Protocol: Document 04/01/19 12:46 LRN (Rec: 04/01/19 13:38 LRN [id number]) Posture Evaluation Mauri Postural Classification System Elbow Flexion Test 2 Comments Posture Comments Mild fwd head, elevated L shoulder and scapula. Palpation Assessment Location L thumb Palpation Location L thumb at CMC joint and Thenar [place] Palpation Findings Edema,Tenderness PT-OP-M Strength Start: 04/01/19 12:15 Freq: Status: Active Protocol: Document 05/05/19 09:51 LRN (Rec: 05/06/19 08:37 LRN [id number]) Hand Collection Support Specialist/Pinch Strength Hand Strength Right Tip Pinch (lbs) 24 Comments Collection Support Specialist strength (kg): 3 trials: 45, 38, 37 Left Comments Collection Support Specialist strength (kg): 3 trials: 32, 36, 32. No pain, pt avoided using thumb. PT-OP-Q Treatments Start: 04/01/19 12:15 Freq: Status: Active Protocol: Document 05/12/19 09:49 LRN (Rec: 05/12/19 10:36 LRN [id number]) Therapeutic Exercises Sitting Exercises Wrist ext Sitting Exercise Name Wrist ext Side left Resistance 5# Reps/Minutes 10x Elbow ext Sitting Exercise Name Elbow ext Side left Resistance 15# Reps/Minutes 15x Aleksandra stretch Sitting Exercise Name Thumb extensor stretch - Gentle Side left Reps/Minutes 10 hold x 10. Wrist RD/UD stretch Sitting Exercise Name Radial Deviation > Ulnar Deviation stretch Side left Wrist flexion Sitting Exercise Name Wrist flexion stretch Side left Reps/Minutes 2' stretch bicep curls Sitting Exercise Name 3 way Side bilateral Resistance 5# Equipment Used round weights Reps/Minutes 15 ea wrist extension Sitting Exercise Name wrist ext stretch Side left Reps/Minutes 2' stretch Standing Exercises Weight bearing L hand Standing Exercise Name Weight bearing on sit surface Comments Poor tolerance Manual Therapy Treatment Soft Tissue Mobilization L forearm Body Location L wrist flexors Mobilization Type Myofascial Release,Strumming, Sustained Pressure Intensity/Depth Moderate Body Position Sitting Joint Mobilizations L carpel bones Joint Carpel joints Direction PA, AP Grade II PT-OP-R Modalities Start: 04/01/19 12:15 Freq: Status: Active Protocol: Document 05/09/19 09:04 LRN (Rec: 05/09/19 09:48 LRN [id number]) Hot Pack/Cold Pack Treatment Cold Pack Location L wrist/thenar eminence Patient Position Sitting Treatment Duration (minutes) 10 Ultrasound Therapy Treatment Left Thumb Treatment Duration (minutes) 8 Patient Position Sitting Applicator Size (cm2) 2 Frequency Setting (mHz) 3 Mode Setting Pulsed Duty Cycle 50% Comments 5' for L Thenar [place], 3 MHz, pulsed 3' for around CMC jt and snuff box tendons, 1 MHz, pulsed Other Unlisted Modality Treatment Laser Name of Modality Laser Body Position Sitting PT-OP-T Assessment and Plan Start: 04/01/19 12:15 Freq: Status: Active Protocol: Document 05/12/19 09:49 LRN (Rec: 05/12/19 10:36 LRN [id number]) Physical Therapy Assessment Assessment Summary Assessment Poor WBing in L hand due to increased L thumb and forearm pain, possibly from no use of thumb splint at night. Able to start Iontophoresis today with return of signed POC. Physical Therapy Plan Frequency and Duration Frequency of Treatment 2x/Week Plan of Care Start Date 05/06/19 Plan of Care End Date 07/05/19 Next Visit Focus/Plan Next Note Type Treatment Note Next Visit Plan Continue for Iontophoresis and try to wean from brace (next 2-4 weeks) during the day if pain is controlled. Monitor tolerance for WBing through the L thumb. Removing brace for recreational and functional activities if can be performed painfree. Pt to do thumb/wrist ROM ex and wear glove for edema management. Assess the response to Iontophoresis. Improve L thumb and wrist flex/ext mobility, strengthen L hand. Hold US to thenar eminence and K-tape to thumb during use of ionto; use compression glove for edema. Hold cryotherapy due to ionto at end of therapy .
--- NOTE | 2019-05-12 16:58 | PT.OTN ---
Current Diagnoses Unilateral primary osteoarthritis of first carpometacarpal joint, right hand (05/12/19) Unilateral primary osteoarthritis of first carpometacarpal joint, left hand (05/12/19) Physical Therapy Treatment Note PT-OP-A Visit Information Start: 04/01/19 12:15 Freq: Status: Active Protocol: Document 05/12/19 09:49 LRN (Rec: 05/12/19 10:36 LRN [id number]) Out-Patient Physical Therapy Visit Information Visit Information Visit Type Treatment Note Visit Note POC received for use of Iontophoresis. Visit Start Time 09:49 Visit Stop Time 10:34 Total Visit Minutes 46 Visit Number 13 Number of COUNTER CUTTER Visits 0 Evaluation Information Evaluation Date 04/01/19 Precautions Precautions Lifting restriction: 20-40# Recent Cervical surgery with spacers placed. PT-OP-B Current Condition Start: 04/01/19 12:15 Freq: Status: Active Protocol: Document 04/01/19 12:46 LRN (Rec: 04/01/19 13:38 LRN [id number]) Current Condition History of Current Condition Onset Date 1 month ago Current Complaints L thumb (CMC) pain at rest and increased with use or pressure History of Current Condition Finished neck physical therapy this week. For the past month was having pain with the L thumb with weightbearing and squeezing objects. His pain is constant in nature rated at 2/10, but with pressure and use the pain increases to 5/10. States when there if pressure applied to the thumb (at the CMC joint) his pain is sharp in nature. He has been on Gabapentin for his neck and found the pain in his R arm was helped, but not in the L thumb. Can't play guitar. Prior Treatments and Tests MRI - 09/30/18 indicates tendinopathy of 1st extensor compartment and mild extensor carpi ulnaris tendinopathy, and probable small perforating tear involving the radial margin of the triangular fibrocartilage disc. Cortisone Injection - 11/10/18 with worsening of pain. Gabapentin that did not change L thumb pain. Future Testing and Treatments Planned Possible surgery to shave down arthritic changes. Treatment Goals Patient/Caregiver Goals Pt goal is to avoid surgery. Decreased constant pain. 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 Yoga class tolerating weightbearing in the L UE. 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 Baseline Function- Recreation/Hobbies Played a guitar 1 hour without pain or difficulty. Baseline Function- Other Occasional soreness of L hand with yoga Current Functional Impairments (Reported) Functional Limitations- ADL's Pain in the L thumb CMC jt is constant at 2/10, with weightbearing pain is 4-5/10. He states he is 1/4 of his normal strength. He is lifting restricted to 20 -40#. Functional Limitations- Work/School Currently is not back to work. Functional Limitations- Recreation/ Hurts playing the [employer]. Hobbies Tires after 10 songs, ~20'-30' . Functional Limitations- Other Repositions hand to avoid WBing on the hand (for sit to stand transfers). Personal Factors Other Personal Factors That May Effect Prostate removed due to CA - 5 Therapy/Recovery .5 yrs ago. Arthritis, RAMOS's Hx of Neck surgery - to improve space of nerves PT-OP-C Subjective Start: 04/01/19 12:15 Freq: Status: Active Protocol: Document 05/12/19 09:49 LRN (Rec: 05/12/19 10:36 LRN [id number]) OP-PT Subjective Patient Comments Patient Comments Sore today, not sure why. Pain rated 2-3/10. States he fell asleep last night without his wrist brace on. PT-OP-J Posture/Palpation/Skin Start: 04/01/19 12:15 Freq: Status: Active Protocol: Document 04/01/19 12:46 LRN (Rec: 04/01/19 13:38 LRN [id number]) Posture Evaluation Mauri Postural Classification System Elbow Flexion Test 2 Comments Posture Comments Mild fwd head, elevated L shoulder and scapula. Palpation Assessment Location L thumb Palpation Location L thumb at CMC joint and Thenar [place] Palpation Findings Edema,Tenderness PT-OP-M Strength Start: 04/01/19 12:15 Freq: Status: Active Protocol: Document 05/05/19 09:51 LRN (Rec: 05/06/19 08:37 LRN [id number]) Hand Dry Cell Sealer/Pinch Strength Hand Strength Right Tip Pinch (lbs) 24 Comments Dry Cell Sealer strength (kg): 3 trials: 45, 38, 37 Left Comments Dry Cell Sealer strength (kg): 3 trials: 32, 36, 32. No pain, pt avoided using thumb. PT-OP-Q Treatments Start: 04/01/19 12:15 Freq: Status: Active Protocol: Document 05/12/19 09:49 LRN (Rec: 05/12/19 10:36 LRN [id number]) Therapeutic Exercises Sitting Exercises Wrist ext Sitting Exercise Name Wrist ext Side left Resistance 5# Reps/Minutes 10x Elbow ext Sitting Exercise Name Elbow ext Side left Resistance 15# Reps/Minutes 15x Aleksandra stretch Sitting Exercise Name Thumb extensor stretch - Gentle Side left Reps/Minutes 10 hold x 10. Wrist RD/UD stretch Sitting Exercise Name Radial Deviation > Ulnar Deviation stretch Side left Wrist flexion Sitting Exercise Name Wrist flexion stretch Side left Reps/Minutes 2' stretch bicep curls Sitting Exercise Name 3 way Side bilateral Resistance 5# Equipment Used round weights Reps/Minutes 15 ea wrist extension Sitting Exercise Name wrist ext stretch Side left Reps/Minutes 2' stretch Standing Exercises Weight bearing L hand Standing Exercise Name Weight bearing on sit surface Comments Poor tolerance Manual Therapy Treatment Soft Tissue Mobilization L forearm Body Location L wrist flexors Mobilization Type Myofascial Release,Strumming, Sustained Pressure Intensity/Depth Moderate Body Position Sitting Joint Mobilizations L carpel bones Joint Carpel joints Direction PA, AP Grade II PT-OP-R Modalities Start: 04/01/19 12:15 Freq: Status: Active Protocol: Document 05/12/19 09:49 LRN (Rec: 05/12/19 16:57 LRN [id number]) Iontophoresis Treatment L CMC joint Treatment Medication Dexamethasone (-) Medication Amount (mL) (ml) 1 Medication Dosage 4mg/mL Treatment Polarity Negative to Negative Active Electrode Placement L CMC jt Dispersive Electrode Placement L lateral forearm Treatment Duration (minutes) 12 Ultrasound Therapy Treatment Left Thumb Treatment Duration (minutes) 8 Patient Position Sitting Applicator Size (cm2) 2 Frequency Setting (mHz) 3 Mode Setting Pulsed Duty Cycle 50% Comments 5' for L Thenar [place], 3 MHz, pulsed 3' for around CMC jt and snuff box tendons, 1 MHz, pulsed PT-OP-T Assessment and Plan Start: 04/01/19 12:15 Freq: Status: Active Protocol: Document 05/12/19 09:49 LRN (Rec: 05/12/19 10:36 LRN [id number]) Physical Therapy Assessment Assessment Summary Assessment Poor WBing in L hand due to increased L thumb and forearm pain, possibly from no use of thumb splint at night. Able to start Iontophoresis today with return of signed POC. Physical Therapy Plan Frequency and Duration Frequency of Treatment 2x/Week Plan of Care Start Date 05/06/19 Plan of Care End Date 07/05/19 Next Visit Focus/Plan Next Note Type Treatment Note Next Visit Plan Continue for Iontophoresis and try to wean from brace (next 2-4 weeks) during the day if pain is controlled. Monitor tolerance for WBing through the L thumb. Removing brace for recreational and functional activities if can be performed painfree. Pt to do thumb/wrist ROM ex and wear glove for edema management. Assess the response to Iontophoresis. Improve L thumb and wrist flex/ext mobility, strengthen L hand. Hold US to thenar eminence and K-tape to thumb during use of ionto; use compression glove for edema. Hold cryotherapy due to ionto at end of therapy .
--- NOTE | 2019-05-16 15:22 | PT.OTN ---
Current Diagnoses Unilateral primary osteoarthritis of first carpometacarpal joint, right hand (05/16/19) Unilateral primary osteoarthritis of first carpometacarpal joint, left hand (05/16/19) Physical Therapy Treatment Note PT-OP-A Visit Information Start: 04/01/19 12:15 Freq: Status: Active Protocol: Document 05/16/19 09:06 LRN (Rec: 05/16/19 10:33 LRN [id number]) Out-Patient Physical Therapy Visit Information Visit Information Visit Type Treatment Note Visit Start Time 09:06 Visit Stop Time 09:54 Total Visit Minutes 48 Visit Number 14 Number of QUALITY CONTROL REPRESENTATIVE Visits 0 Evaluation Information Evaluation Date 04/01/19 Precautions Precautions Lifting restriction: 20-40# Recent Cervical surgery with spacers placed. PT-OP-B Current Condition Start: 04/01/19 12:15 Freq: Status: Active Protocol: Document 04/01/19 12:46 LRN (Rec: 04/01/19 13:38 LRN [id number]) Current Condition History of Current Condition Onset Date 1 month ago Current Complaints L thumb (CMC) pain at rest and increased with use or pressure History of Current Condition Finished neck physical therapy this week. For the past month was having pain with the L thumb with weightbearing and squeezing objects. His pain is constant in nature rated at 2/10, but with pressure and use the pain increases to 5/10. States when there if pressure applied to the thumb (at the CMC joint) his pain is sharp in nature. He has been on Gabapentin for his neck and found the pain in his R arm was helped, but not in the L thumb. Can't play guitar. Prior Treatments and Tests MRI - 09/30/18 indicates tendinopathy of 1st extensor compartment and mild extensor carpi ulnaris tendinopathy, and probable small perforating tear involving the radial margin of the triangular fibrocartilage disc. Cortisone Injection - 11/10/18 with worsening of pain. Gabapentin that did not change L thumb pain. Future Testing and Treatments Planned Possible surgery to shave down arthritic changes. Treatment Goals Patient/Caregiver Goals Pt goal is to avoid surgery. Decreased constant pain. 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 Yoga class tolerating weightbearing in the L UE. 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 Baseline Function- Recreation/Hobbies Played a guitar 1 hour without pain or difficulty. Baseline Function- Other Occasional soreness of L hand with yoga Current Functional Impairments (Reported) Functional Limitations- ADL's Pain in the L thumb CMC jt is constant at 2/10, with weightbearing pain is 4-5/10. He states he is 1/4 of his normal strength. He is lifting restricted to 20 -40#. Functional Limitations- Work/School Currently is not back to work. Functional Limitations- Recreation/ Hurts playing the [employer]. Hobbies Tires after 10 songs, ~20'-30' . Functional Limitations- Other Repositions hand to avoid WBing on the hand (for sit to stand transfers). Personal Factors Other Personal Factors That May Effect Prostate removed due to CA - 5 Therapy/Recovery .5 yrs ago. Arthritis, RAMOS's Hx of Neck surgery - to improve space of nerves PT-OP-C Subjective Start: 04/01/19 12:15 Freq: Status: Active Protocol: Document 05/16/19 09:06 LRN (Rec: 05/16/19 10:33 LRN [id number]) OP-PT Subjective Patient Comments Patient Comments States his L hand is sore at CMC position. PT-OP-J Posture/Palpation/Skin Start: 04/01/19 12:15 Freq: Status: Active Protocol: Document 04/01/19 12:46 LRN (Rec: 04/01/19 13:38 LRN [id number]) Posture Evaluation Mauri Postural Classification System Elbow Flexion Test 2 Comments Posture Comments Mild fwd head, elevated L shoulder and scapula. Palpation Assessment Location L thumb Palpation Location L thumb at CMC joint and Thenar [place] Palpation Findings Edema,Tenderness PT-OP-M Strength Start: 04/01/19 12:15 Freq: Status: Active Protocol: Document 05/05/19 09:51 LRN (Rec: 05/06/19 08:37 LRN [id number]) Hand Vice President Of Instruction/Pinch Strength Hand Strength Right Tip Pinch (lbs) 24 Comments Vice President Of Instruction strength (kg): 3 trials: 45, 38, 37 Left Comments Vice President Of Instruction strength (kg): 3 trials: 32, 36, 32. No pain, pt avoided using thumb. PT-OP-Q Treatments Start: 04/01/19 12:15 Freq: Status: Active Protocol: Document 05/16/19 09:06 LRN (Rec: 05/18/19 21:45 LRN [id number]) Therapeutic Exercises Sitting Exercises Thumb extension Sitting Exercise Name Isometric and Conc Thumb Ext Side left Resistance Manual and Rubberband Reps/Minutes Stopped with discomfort Aleksandra stretch Sitting Exercise Name Thumb extensor stretch - Gentle Side left Reps/Minutes 10 hold x 10. Wrist RD/UD stretch Sitting Exercise Name Radial Deviation > Ulnar Deviation stretch Side left Wrist flexion Sitting Exercise Name Wrist flexion stretch Side left Reps/Minutes 2' stretch bicep curls Sitting Exercise Name 3 way Side bilateral Resistance 6# Equipment Used round weights Reps/Minutes 10 ea wrist extension Sitting Exercise Name wrist ext stretch Side left Reps/Minutes 2' stretch Standing Exercises Weight bearing L hand Standing Exercise Name Weight bearing on sit surface Comments Poor tolerance Manual Therapy Treatment Soft Tissue Mobilization L forearm Body Location L thumb extensors and wrist extensors Mobilization Type Myofascial Release,Strumming, Sustained Pressure Intensity/Depth Moderate Body Position Sitting PT-OP-R Modalities Start: 04/01/19 12:15 Freq: Status: Active Protocol: Document 05/16/19 09:06 LRN (Rec: 05/18/19 21:45 LRN [id number]) Iontophoresis Treatment L CMC joint Treatment Medication Dexamethasone (-) Medication Amount (mL) (ml) 1 Medication Dosage 4mg/mL Treatment Polarity Negative to Negative Active Electrode Placement L CMC jt Dispersive Electrode Placement L lateral forearm Treatment Duration (minutes) 3 Ultrasound Therapy Treatment Left Thumb Treatment Duration (minutes) 8 Patient Position Sitting Applicator Size (cm2) 2 Frequency Setting (mHz) 3 Mode Setting Pulsed Duty Cycle 50% Comments 5' for L Thenar [place], 3 MHz, pulsed 3' for around CMC jt, EPL & Abductor PL , 1 MHz, pulsed PT-OP-T Assessment and Plan Start: 04/01/19 12:15 Freq: Status: Active Protocol: Document 05/16/19 09:06 LRN (Rec: 05/16/19 10:33 LRN [id number]) Physical Therapy Assessment Goals Four Impairment Swelling in L Thenar [place] Short Term Goal (STG) Pt educated in joint protection and edema management techniques. STG Duration 04/05/19 (04/08/19: GOAL MET) Three Impairment Decreased L hand product consultant Architect In Training Goal (LTG) Pt will demonstrate normal product consultant strength without pain. LTG Duration 06/13/19 (05/05/19: Pain only at R thumb, CMC jt. Strength less but less pn) Two Impairment Constant L thumb pain hindering activity tolerance. Short Term Goal (STG) Decrease pain by 50% (1/10 at rest & 2-3/10 with palpation). STG Duration 05/30/19 (05/05/19: No significant change, except improved WB tolerance) Architect In Training Goal (LTG) Eliminate L thumb pain at rest and mild discomfort (1-2/10) with weightbearing activities. (05/09/19: Could WB with tolerable discomfort except when leaning R and greater pressure is applied to thumb). LTG Duration 06/13/19 (05/09/19: Goal partially met) One Impairment Lacks appropriate self care program Architect In Training Goal (LTG) Pt will be independent with a self care HEP. LTG Duration 07/05/2019 (05/05/19: Progressing ) Assessment Summary Assessment Pt able to tolerate thumb ext some thumb ext without pain, pain with gripping. Pt did not note a change with use of iontophoresis on last treatment. Pt may need 2-3 visits of ionto in sequence for change. Pt with less pain since last visit, possibly due wearing his thumb brace at nighttime. Pt is tender in his L thumb abductor pollicis longus, EPB and EPL . Less stiffness noted with wrist UD after STM. Physical Therapy Plan Frequency and Duration Frequency of Treatment 1-2x/week Duration of Treatment 2 months Plan of Care Start Date 05/12/19 Plan of Care End Date 07/12/19 Therapeutic Interventions Therapeutic Interventions Home Exercise Program,Joint Mobilizations,Manual Therapy, Patient/Caregiver Education, Self-Care/Home Management,Soft Tissue Mobilization,Taping, Therapeutic Activities, Therapeutic Exercises Modalities Cold Pack/Ice Massage,Electric Stimulation,Hot Packs, Paraffin Bath,Ultrasound Next Visit Focus/Plan Next Note Type Treatment Note Next Visit Plan Continue for Iontophoresis (2 days in row) and try to wean from brace (next 1-3 weeks) during the day if pain is controlled. Monitor tolerance for WBing through the L thumb . Removing brace for recreational and functional activities if can be performed painfree. Pt to do thumb/ wrist ROM ex and wear glove for edema management. Assess the response to Iontophoresis . Improve L thumb and wrist flex/ext mobility, strengthen L hand. Hold K-tape during use of ionto; pt using compression glove for edema. Hold cryotherapy due to ionto at end of therapy.
--- NOTE | 2019-06-09 10:12 | PT.OTN ---
Current Diagnoses Unilateral primary osteoarthritis of first carpometacarpal joint, right hand (06/09/19) Unilateral primary osteoarthritis of first carpometacarpal joint, left hand (06/09/19) Physical Therapy Treatment Note PT-OP-A Visit Information Start: 04/01/19 12:15 Freq: Status: Active Protocol: Document 06/09/19 09:05 [facility] (Rec: 06/09/19 10:06 [facility] [id number]) Out-Patient Physical Therapy Visit Information Visit Information Visit Type Treatment Note Visit Start Time 09:05 Visit Stop Time 09:44 Total Visit Minutes 39 Visit Number 15 Number of HOME HEALTH CARE COORDINATOR Visits 0 Evaluation Information Evaluation Date 04/01/19 Precautions Precautions Lifting restriction: 20-40# Recent Cervical surgery with spacers placed. PT-OP-B Current Condition Start: 04/01/19 12:15 Freq: Status: Active Protocol: Document 04/01/19 12:46 [facility] (Rec: 04/01/19 13:38 [facility] [id number]) Current Condition History of Current Condition Onset Date 1 month ago Current Complaints L thumb (CMC) pain at rest and increased with use or pressure History of Current Condition Finished neck physical therapy this week. For the past month was having pain with the L thumb with weightbearing and squeezing objects. His pain is constant in nature rated at 2/10, but with pressure and use the pain increases to 5/10. States when there if pressure applied to the thumb (at the CMC joint) his pain is sharp in nature. He has been on Gabapentin for his neck and found the pain in his R arm was helped, but not in the L thumb. Can't play guitar. Prior Treatments and Tests MRI - 09/30/18 indicates tendinopathy of 1st extensor compartment and mild extensor carpi ulnaris tendinopathy, and probable small perforating tear involving the radial margin of the triangular fibrocartilage disc. Cortisone Injection - 11/10/18 with worsening of pain. Gabapentin that did not change L thumb pain. Future Testing and Treatments Planned Possible surgery to shave down arthritic changes. Treatment Goals Patient/Caregiver Goals Pt goal is to avoid surgery. Decreased constant pain. Improve strength of ancillary services manager therapy. Yoga class tolerating weightbearing in the L UE. 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 Baseline Function- Recreation/Hobbies Played a guitar 1 hour without pain or difficulty. Baseline Function- Other Occasional soreness of L hand with yoga Current Functional Impairments (Reported) Functional Limitations- ADL's Pain in the L thumb CMC jt is constant at 2/10, with weightbearing pain is 4-5/10. He states he is 1/4 of his normal strength. He is lifting restricted to 20 -40#. Functional Limitations- Work/School Currently is not back to work. Functional Limitations- Recreation/ Hurts playing the guitar. Hobbies Tires after 10 songs, ~20'-30' . Functional Limitations- Other Repositions hand to avoid WBing on the hand (for sit to stand transfers). Personal Factors Other Personal Factors That May Effect Prostate removed due to CA - 5 Therapy/Recovery .5 yrs ago. Arthritis, RAMOS's Hx of Neck surgery - to improve space of nerves PT-OP-C Subjective Start: 04/01/19 12:15 Freq: Status: Active Protocol: Document 06/09/19 09:05 [facility] (Rec: 06/09/19 10:06 [facility] [id number]) OP-PT Subjective Patient Comments Patient Comments A little less painful after the last PT session with the Iontophoresis. Thumb feels more flexible. When it is stiff he pops it moving again. Able to play the guitar longer. Wears out stamina agarwal first. OP-PT Pain Assessment Location L Thumb CMC joint Pain Location Details L CMC Jt Intensity 2 PT-OP-J Posture/Palpation/Skin Start: 04/01/19 12:15 Freq: Status: Active Protocol: Document 04/01/19 12:46 [facility] (Rec: 04/01/19 13:38 [facility] [id number]) Posture Evaluation [facility] Postural Classification System Elbow Flexion Test 2 Comments Posture Comments Mild fwd head, elevated L shoulder and scapula. Palpation Assessment Location L thumb Palpation Location L thumb at CMC joint and Thenar Massillon Palpation Findings Edema,Tenderness PT-OP-K Range of Motion Start: 04/01/19 12:15 Freq: Status: Active Protocol: Document 06/09/19 09:05 [facility] (Rec: 06/09/19 10:06 [facility] [id number]) Wrist Goniometric Range of Motion Wrist Left Flexion Active (degrees) 65 Flexion Passive (degrees) 65 Extension Active (degrees) 50 Extension Passive (degrees) 56 Ulnar Deviation Active (degrees) 20 Ulnar Deviation Passive (degrees) 21 Radial Deviation Active (degrees) 25 Radial Deviation Passive (degrees) 27 PT-OP-M Strength Start: 04/01/19 12:15 Freq: Status: Active Protocol: Document 05/05/19 09:51 [facility] (Rec: 05/06/19 08:37 [facility] [id number]) Hand Lead Ramp Agent/Pinch Strength Hand Strength Right Tip Pinch (lbs) 24 Comments Lead Ramp Agent strength (kg): 3 trials: 45, 38, 37 Left Comments Lead Ramp Agent strength (kg): 3 trials: 32, 36, 32. No pain, pt avoided using thumb. PT-OP-Q Treatments Start: 04/01/19 12:15 Freq: Status: Active Protocol: Document 06/09/19 09:05 [facility] (Rec: 06/09/19 10:06 [facility] [id number]) Cardio Equipment Upper Body Ergometer (UBE) Duration (Minutes) 6 Seat Position 14 Height 2 Therapeutic Exercises Sitting Exercises Thumb Isometric Sitting Exercise Name Thumb Flex, AB/AD Side left Comments MMT taken, not tolerated AD Pronation/Supination Sitting Exercise Name Supination/Pronation Side left Resistance Blue T-Ball Thumb extension Sitting Exercise Name Jim thumb ext Side left Comments MMT taken L Thumb PROM Sitting Exercise Name Self Passive Thumb ext & AB Side left Reps/Minutes ~10 x Comments Painfree range Aleksandra stretch Sitting Exercise Name Thumb extensor stretch - Gentle Side left Reps/Minutes 10 hold x 10. Wrist RD/UD stretch Sitting Exercise Name Radial Deviation > Ulnar Deviation stretch Side left Wrist flexion Sitting Exercise Name Wrist flexion stretch Side left Reps/Minutes 2' stretch Manual Therapy Treatment Soft Tissue Mobilization L forearm Body Location L thumb extensors and wrist extensors Mobilization Type Myofascial Release,Strumming, Sustained Pressure Intensity/Depth Moderate Body Position Sitting PT-OP-R Modalities Start: 04/01/19 12:15 Freq: Status: Active Protocol: Document 06/09/19 09:05 [facility] (Rec: 06/09/19 10:06 [facility] [id number]) Iontophoresis Treatment L CMC joint Treatment Medication Dexamethasone (-) Medication Amount (mL) (ml) 1 Medication Dosage 4mg/mL Treatment Polarity Negative to Negative Active Electrode Placement L CMC jt Dispersive Electrode Placement L lateral forearm Treatment Duration (minutes) 3 PT-OP-T Assessment and Plan Start: 04/01/19 12:15 Freq: Status: Active Protocol: Document 06/09/19 09:05 [facility] (Rec: 06/09/19 10:06 [facility] [id number]) Physical Therapy Assessment Goals Four Impairment Swelling in L Thenar Massillon Short Term Goal (STG) Pt educated in joint protection and edema management techniques. STG Duration 04/05/19 (04/08/19: GOAL MET) Three Impairment Decreased L hand ancillary services manager therapy Deli Slicer Goal (LTG) Pt will demonstrate normal ancillary services manager therapy strength without pain. LTG Duration 06/13/19 (05/05/19: Pain only at R thumb, CMC jt. Strength less but less pn) Two Impairment Constant L thumb pain hindering activity tolerance. Short Term Goal (STG) Decrease pain by 50% (1/10 at rest & 2-3/10 with palpation). STG Duration 05/30/19 (06/09/19: Goal met, except improved WB tolerance) Prison Goal (LTG) Eliminate L thumb pain at rest and mild discomfort (1-2/10) with weightbearing activities. (05/09/19: Could WB with tolerable discomfort except when leaning R and greater pressure is applied to thumb). LTG Duration 06/13/19 (05/09/19: Goal partially met) One Impairment Lacks appropriate self care program Prison Goal (LTG) Pt will be independent with a self care HEP. LTG Duration 07/05/2019 (05/05/19: Progressing ) Assessment Summary Assessment Tenderness in wrist extensor muscle bellies. Pt having less pain overall, rated 1-2/ 10. Pt primarily wearing brace when resting. Iontophoresis appears helpful last visit. Thumb weakness is present, due to thumb pain, with L thumb AD (1/5), AB (3-/ 5), and Ext (4+/5), Ext is WNL . L Wrist mobility is limited by thumb pain. Physical Therapy Plan Frequency and Duration Frequency of Treatment 2x/Week Duration of Treatment 2 months Plan of Care Start Date 05/12/19 Plan of Care End Date 07/12/19 Next Visit Focus/Plan Next Note Type Treatment Note Next Visit Plan Monitor tolerance for WBing through the L thumb. Progress use of thumb with ex. Check hand strength and thumb ROM. Continue for Iontophoresis (2 days in row) and progress pt to wean from brace during the day, if pain is controlled, using cryotherapy for pain management. Remove brace for recreational and functional activities as tolerated. Pt to do thumb/wrist ROM ex and wear glove for edema management. Improve L thumb and wrist flex/ext mobility, strengthen L hand. Hold K- tape during use of ionto; pt using compression glove for edema. Hold cryotherapy due to ionto at end of therapy.
--- NOTE | 2019-06-10 10:24 | PT.OTN ---
Current Diagnoses Unilateral primary osteoarthritis of first carpometacarpal joint, right hand (06/10/19) Unilateral primary osteoarthritis of first carpometacarpal joint, left hand (06/10/19) Physical Therapy Treatment Note PT-OP-A Visit Information Start: 04/01/19 12:15 Freq: Status: Active Protocol: Document 06/10/19 09:01 LRN (Rec: 06/10/19 09:49 LRN [id number]) Out-Patient Physical Therapy Visit Information Visit Information Visit Type Treatment Note Visit Start Time 09:01 Visit Stop Time 09:46 Total Visit Minutes 45 Visit Number 16 Number of ELECTRICAL ACCESSORIES II ASSEMBLER Visits 0 Evaluation Information Evaluation Date 04/01/19 Precautions Precautions Lifting restriction: 20-40# Recent Cervical surgery with spacers placed. PT-OP-B Current Condition Start: 04/01/19 12:15 Freq: Status: Active Protocol: Document 04/01/19 12:46 LRN (Rec: 04/01/19 13:38 LRN [id number]) Current Condition History of Current Condition Onset Date 1 month ago Current Complaints L thumb (CMC) pain at rest and increased with use or pressure History of Current Condition Finished neck physical therapy this week. For the past month was having pain with the L thumb with weightbearing and squeezing objects. His pain is constant in nature rated at 2/10, but with pressure and use the pain increases to 5/10. States when there if pressure applied to the thumb (at the CMC joint) his pain is sharp in nature. He has been on Gabapentin for his neck and found the pain in his R arm was helped, but not in the L thumb. Can't play guitar. Prior Treatments and Tests MRI - 09/30/18 indicates tendinopathy of 1st extensor compartment and mild extensor carpi ulnaris tendinopathy, and probable small perforating tear involving the radial margin of the triangular fibrocartilage disc. Cortisone Injection - 11/10/18 with worsening of pain. Gabapentin that did not change L thumb pain. Future Testing and Treatments Planned Possible surgery to shave down arthritic changes. Treatment Goals Patient/Caregiver Goals Pt goal is to avoid surgery. Decreased constant pain. Improve strength of block paver. Yoga class tolerating weightbearing in the L UE. 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 Baseline Function- Recreation/Hobbies Played a guitar 1 hour without pain or difficulty. Baseline Function- Other Occasional soreness of L hand with yoga Current Functional Impairments (Reported) Functional Limitations- ADL's Pain in the L thumb CMC jt is constant at 2/10, with weightbearing pain is 4-5/10. He states he is 1/4 of his normal strength. He is lifting restricted to 20 -40#. Functional Limitations- Work/School Currently is not back to work. Functional Limitations- Recreation/ Hurts playing the guitar. Hobbies Tires after 10 songs, ~20'-30' . Functional Limitations- Other Repositions hand to avoid WBing on the hand (for sit to stand transfers). Personal Factors Other Personal Factors That May Effect Prostate removed due to CA - 5 Therapy/Recovery .5 yrs ago. Arthritis, RAMOS's Hx of Neck surgery - to improve space of nerves PT-OP-C Subjective Start: 04/01/19 12:15 Freq: Status: Active Protocol: Document 06/10/19 09:01 LRN (Rec: 06/10/19 09:49 LRN [id number]) OP-PT Subjective Patient Comments Patient Comments States the ionto patch came off after 1 hr and wasn't able to keep it on, so no change. PT-OP-J Posture/Palpation/Skin Start: 04/01/19 12:15 Freq: Status: Active Protocol: Document 04/01/19 12:46 LRN (Rec: 04/01/19 13:38 LRN [id number]) Posture Evaluation [facility] Postural Classification System Elbow Flexion Test 2 Comments Posture Comments Mild fwd head, elevated L shoulder and scapula. Palpation Assessment Location L thumb Palpation Location L thumb at CMC joint and [place] Palpation Findings Edema,Tenderness PT-OP-K Range of Motion Start: 04/01/19 12:15 Freq: Status: Active Protocol: Document 06/09/19 09:05 LRN (Rec: 06/09/19 10:06 LRN [id number]) Wrist Goniometric Range of Motion Wrist Left Flexion Active (degrees) 65 Flexion Passive (degrees) 65 Extension Active (degrees) 50 Extension Passive (degrees) 56 Ulnar Deviation Active (degrees) 20 Ulnar Deviation Passive (degrees) 21 Radial Deviation Active (degrees) 25 Radial Deviation Passive (degrees) 27 PT-OP-M Strength Start: 04/01/19 12:15 Freq: Status: Active Protocol: Document 05/05/19 09:51 LRN (Rec: 05/06/19 08:37 LRN [id number]) Hand Linoleum Mechanic/Pinch Strength Hand Strength Right Tip Pinch (lbs) 24 Comments Linoleum Mechanic strength (kg): 3 trials: 45, 38, 37 Left Comments Linoleum Mechanic strength (kg): 3 trials: 32, 36, 32. No pain, pt avoided using thumb. PT-OP-Q Treatments Start: 04/01/19 12:15 Freq: Status: Active Protocol: Document 06/10/19 09:01 LRN (Rec: 06/10/19 09:49 LRN [id number]) Cardio Equipment Upper Body Ergometer (UBE) Duration (Minutes) 8 RPM 70 Seat Position 16 Height 2 Other 4' w/brace, 4' w/normal block paver & w/o brace Therapeutic Exercises Sitting Exercises Thumb Isometric Sitting Exercise Name AD Side left Pronation/Supination Sitting Exercise Name Supination/Pronation Side left Resistance 6# Thumb extension Sitting Exercise Name Jim thumb ext Side left L Thumb PROM Sitting Exercise Name Passive L thumb AB Side left Reps/Minutes 1' Aleksandra stretch Sitting Exercise Name Thumb extensor stretch - Gentle Side left Reps/Minutes 10 hold x 10. Wrist RD/UD stretch Sitting Exercise Name Radial Deviation > Ulnar Deviation stretch Side left Resistance 6# Reps/Minutes 8x Wrist flexion Sitting Exercise Name Wrist flexion stretch Side left Reps/Minutes 2' stretch bicep curls Sitting Exercise Name Bicep curl Resistance 6# Reps/Minutes 10x wrist extension Sitting Exercise Name wrist ext stretch Side left Reps/Minutes 2' stretch Standing Exercises RD stretch Standing Exercise Name Arm in neutral Reps/Minutes 2' Manual Therapy Treatment Soft Tissue Mobilization L forearm Body Location L thumb extensors and wrist extensors Mobilization Type Myofascial Release,Strumming, Sustained Pressure Intensity/Depth Moderate Body Position Sitting PT-OP-R Modalities Start: 04/01/19 12:15 Freq: Status: Active Protocol: Document 06/10/19 09:01 LRN (Rec: 06/10/19 09:49 LRN [id number]) Iontophoresis Treatment L CMC joint Treatment Medication Dexamethasone (-) Medication Amount (mL) (ml) 1 Medication Dosage 4mg/mL Treatment Polarity Negative to Negative Active Electrode Placement L CMC jt Dispersive Electrode Placement L lateral forearm Treatment Duration (minutes) 3 PT-OP-T Assessment and Plan Start: 04/01/19 12:15 Freq: Status: Active Protocol: Document 06/10/19 09:01 LRN (Rec: 06/10/19 09:49 LRN [id number]) Physical Therapy Assessment Goals Four Impairment Swelling in L [place] Short Term Goal (STG) Pt educated in joint protection and edema management techniques. STG Duration 04/05/19 (04/08/19: GOAL MET) Three Impairment Decreased L hand block paver Longterm Goal (LTG) Pt will demonstrate normal block paver strength without pain. LTG Duration 06/13/19 (05/05/19: Pain only at R thumb, CMC jt. Strength less but less pn) Two Impairment Constant L thumb pain hindering activity tolerance. Short Term Goal (STG) Decrease pain by 50% (1/10 at rest & 2-3/10 with palpation). STG Duration 05/30/19 (06/09/19: Goal met, except improved WB tolerance) Longterm Goal (LTG) Eliminate L thumb pain at rest and mild discomfort (1-2/10) with weightbearing activities. (05/09/19: Could WB with tolerable discomfort except when leaning R and greater pressure is applied to thumb). LTG Duration 06/13/19 (05/09/19: Goal partially met) One Impairment Lacks appropriate self care program Floorwalker Goal (LTG) Pt will be independent with a self care HEP. LTG Duration 07/05/2019 (05/05/19: Progressing ) Assessment Summary Assessment Pt has tolerable pain (1-2/10) with limited use, he has onset of pain in L CMC jt after exercise with weight. After exercise: L Linoleum Mechanic strength (3 trials in kg): 32 , 32, 36 (avg is 33), initial testing of L hand Linoleum Mechanic strength was (kg): 3 trials: 40, 35, 30 (avg is 35). ( Initial R hand: Linoleum Mechanic strength (kg): 3 trials: 45, 38, 37, avg is 40) Physical Therapy Plan Frequency and Duration Frequency of Treatment 2x/Week Duration of Treatment 2 months Plan of Care Start Date 05/12/19 Plan of Care End Date 07/12/19 Next Visit Focus/Plan Next Note Type Treatment Note Next Visit Plan Check tolerance for WBing through the L thumb. Progress use of thumb with ex. Check L thumb ROM. Continue for Iontophoresis (2 days in row) and progress pt to wean from brace during the day, if pain is controlled, using cryotherapy for pain management. Remove brace for recreational and functional activities as tolerated. Pt to do thumb/wrist ROM ex and wear glove for edema management. Improve L thumb and wrist flex/ext mobility, strengthen L hand. Hold K- tape during use of ionto; pt using compression glove for edema. Hold cryotherapy due to ionto at end of therapy.
--- NOTE | 2019-06-16 15:55 | PT.OTN ---
Current Diagnoses Unilateral primary osteoarthritis of first carpometacarpal joint, right hand (06/16/19) Unilateral primary osteoarthritis of first carpometacarpal joint, left hand (06/16/19) Physical Therapy Treatment Note PT-OP-A Visit Information Start: 04/01/19 12:15 Freq: Status: Active Protocol: Document 06/16/19 09:06 LRN (Rec: 06/16/19 09:50 LRN [id number]) Out-Patient Physical Therapy Visit Information Visit Information Visit Type Treatment Note Visit Start Time 09:06 Visit Stop Time 09:44 Total Visit Minutes 38 Visit Number 17 Number of BULL DRIVER Visits 0 Evaluation Information Evaluation Date 04/01/19 Precautions Precautions Lifting restriction: 20-40# Recent Cervical surgery with spacers placed. PT-OP-B Current Condition Start: 04/01/19 12:15 Freq: Status: Active Protocol: Document 04/01/19 12:46 LRN (Rec: 04/01/19 13:38 LRN [id number]) Current Condition History of Current Condition Onset Date 1 month ago Current Complaints L thumb (CMC) pain at rest and increased with use or pressure History of Current Condition Finished neck physical therapy this week. For the past month was having pain with the L thumb with weightbearing and squeezing objects. His pain is constant in nature rated at 2/10, but with pressure and use the pain increases to 5/10. States when there if pressure applied to the thumb (at the CMC joint) his pain is sharp in nature. He has been on Gabapentin for his neck and found the pain in his R arm was helped, but not in the L thumb. Can't play guitar. Prior Treatments and Tests MRI - 09/30/18 indicates tendinopathy of 1st extensor compartment and mild extensor carpi ulnaris tendinopathy, and probable small perforating tear involving the radial margin of the triangular fibrocartilage disc. Cortisone Injection - 11/10/18 with worsening of pain. Gabapentin that did not change L thumb pain. Future Testing and Treatments Planned Possible surgery to shave down arthritic changes. Treatment Goals Patient/Caregiver Goals Pt goal is to avoid surgery. Decreased constant pain. 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 Yoga class tolerating weightbearing in the L UE. 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 Baseline Function- Recreation/Hobbies Played a guitar 1 hour without pain or difficulty. Baseline Function- Other Occasional soreness of L hand with yoga Current Functional Impairments (Reported) Functional Limitations- ADL's Pain in the L thumb CMC jt is constant at 2/10, with weightbearing pain is 4-5/10. He states he is 1/4 of his normal strength. He is lifting restricted to 20 -40#. Functional Limitations- Work/School Currently is not back to work. Functional Limitations- Recreation/ Hurts playing the guitar. Hobbies Tires after 10 songs, ~20'-30' . Functional Limitations- Other Repositions hand to avoid WBing on the hand (for sit to stand transfers). Personal Factors Other Personal Factors That May Effect Prostate removed due to CA - 5 Therapy/Recovery .5 yrs ago. Arthritis, RAMOS's Hx of Neck surgery - to improve space of nerves PT-OP-C Subjective Start: 04/01/19 12:15 Freq: Status: Active Protocol: Document 06/16/19 09:06 LRN (Rec: 06/16/19 09:50 LRN [id number]) OP-PT Subjective Patient Comments Patient Comments States the Ionto patch stayed on the entire time. Feels a little better. Doesn't have the general soreness when sitting around. Able to play guitar longer. Was able to go without thumb brace all day without noticeable pain. Pain with weightbearing is 4-5/10. PT-OP-J Posture/Palpation/Skin Start: 04/01/19 12:15 Freq: Status: Active Protocol: Document 04/01/19 12:46 LRN (Rec: 04/01/19 13:38 LRN [id number]) Posture Evaluation [facility] Postural Classification System Elbow Flexion Test 2 Comments Posture Comments Mild fwd head, elevated L shoulder and scapula. Palpation Assessment Location L thumb Palpation Location L thumb at CMC joint and [place] Palpation Findings Edema,Tenderness PT-OP-K Range of Motion Start: 04/01/19 12:15 Freq: Status: Active Protocol: Document 06/09/19 09:05 LRN (Rec: 06/09/19 10:06 LRN [id number]) Wrist Goniometric Range of Motion Wrist Left Flexion Active (degrees) 65 Flexion Passive (degrees) 65 Extension Active (degrees) 50 Extension Passive (degrees) 56 Ulnar Deviation Active (degrees) 20 Ulnar Deviation Passive (degrees) 21 Radial Deviation Active (degrees) 25 Radial Deviation Passive (degrees) 27 PT-OP-M Strength Start: 04/01/19 12:15 Freq: Status: Active Protocol: Document 05/05/19 09:51 LRN (Rec: 05/06/19 08:37 LRN [id number]) Hand District Supervisor/Pinch Strength Hand Strength Right Tip Pinch (lbs) 24 Comments District Supervisor strength (kg): 3 trials: 45, 38, 37 Left Comments District Supervisor strength (kg): 3 trials: 32, 36, 32. No pain, pt avoided using thumb. PT-OP-Q Treatments Start: 04/01/19 12:15 Freq: Status: Active Protocol: Document 06/16/19 09:06 LRN (Rec: 06/16/19 09:50 LRN [id number]) Therapeutic Exercises Sitting Exercises Thumb Isometric Sitting Exercise Name AD Side left Comments Not tolerated well. Pronation/Supination Sitting Exercise Name Supination/Pronation Side left Resistance 4# L Thumb PROM Sitting Exercise Name Passive L thumb AB Side left Reps/Minutes 1' Opposition Sitting Exercise Name Opposition with thumb returning to neutral Gripping Sitting Exercise Name Gripping Reps/Minutes 3x Comments Limited by pain Aleksandra stretch Sitting Exercise Name Thumb extensor stretch - Gentle Side left Reps/Minutes 10 hold x 10. Wrist flexion Sitting Exercise Name Wrist flexion stretch Side left Reps/Minutes 2' stretch bicep curls Sitting Exercise Name Bicep curl Resistance 4# Reps/Minutes 10x Comments Forearm in 3 positions: neutral, sup, pron wrist extension Sitting Exercise Name wrist ext stretch Side left Reps/Minutes 2' stretch Standing Exercises RD stretch Standing Exercise Name Arm in neutral Reps/Minutes 1' Weight bearing L hand Standing Exercise Name Weight bearing on sit surface Comments Pain from L CMC > MCP jt PT-OP-R Modalities Start: 04/01/19 12:15 Freq: Status: Active Protocol: Document 06/16/19 09:06 LRN (Rec: 06/16/19 09:50 LRN [id number]) Iontophoresis Treatment L CMC joint Treatment Medication Dexamethasone (-) Medication Amount (mL) (ml) 1 Medication Dosage 4mg/mL Treatment Polarity Negative to Negative Active Electrode Placement L CMC jt Dispersive Electrode Placement L lateral forearm Treatment Duration (minutes) 3 Ultrasound Therapy Treatment L thumb ext muscle Treatment Duration (minutes) 8 Patient Position Sitting Coupling Medium Ultrasound Gel Applicator Size (cm2) 2 Frequency Setting (mHz) 1 Mode Setting Pulsed Duty Cycle 50% Intensity Setting (w/cm2) 1.0 Comments Extra 4' of STM with soundhead PT-OP-T Assessment and Plan Start: 04/01/19 12:15 Freq: Status: Active Protocol: Document 06/16/19 09:06 LRN (Rec: 06/16/19 09:50 LRN [id number]) Physical Therapy Assessment Goals Four Impairment Swelling in L [place] Short Term Goal (STG) Pt educated in joint protection and edema management techniques. STG Duration 04/05/19 (04/08/19: GOAL MET) Three Impairment Decreased L hand manager data warehouse Manager Real Estate Goal (LTG) Pt will demonstrate normal manager data warehouse strength without pain. LTG Duration 06/13/19 (05/05/19: Pain only at R thumb, CMC jt. Strength less but less pn) Two Impairment Constant L thumb pain hindering activity tolerance. Short Term Goal (STG) Decrease pain by 50% (1/10 at rest & 2-3/10 with palpation). STG Duration 05/30/19 (06/09/19: Goal met, except improved WB tolerance) Manager Real Estate Goal (LTG) Eliminate L thumb pain at rest and mild discomfort (1-2/10) with weightbearing activities. (05/09/19: Could WB with tolerable discomfort except when leaning R and greater pressure is applied to thumb). LTG Duration 06/13/19 (05/09/19: Goal partially met) One Impairment Lacks appropriate self care program [facility] Goal (LTG) Pt will be independent with a self care HEP. LTG Duration 07/05/2019 (05/05/19: Progressing ) Assessment Summary Assessment Pain has changed in the L thumb with weightbearing: from CMC>wrist to now CMC>thumb PIP jt. He is able to play his guitar longer without discomfort and is able to go through his day sometimes without noticeable pain at the wrist. Pt has low tolerance to thumb AB and tension with opposition to 5th digit MCP jt . No pain or discomfort with opposition thumb to little finger. Pt tolerating very well weaning from the thumb brace during the day. Physical Therapy Plan Frequency and Duration Frequency of Treatment 2x/Week Duration of Treatment 2 months Plan of Care Start Date 05/12/19 Plan of Care End Date 07/12/19 Next Visit Focus/Plan Next Note Type Treatment Note Next Visit Plan Progress use of thumb with ex, try picking up small objects exercise and if tolerable, add to HEP. Check L thumb ROM. Continue for Iontophoresis (2 days in row). Improve L thumb and wrist flex/ext mobility, strengthen L hand. Remove brace for recreational and functional activities as tolerated. Pt to do thumb/ wrist ROM ex and wear glove for edema management. Hold K- tape during use of ionto; pt using compression glove for edema. Hold cryotherapy due to ionto at end of therapy.
--- NOTE | 2019-06-17 16:25 | PT.OTN ---
Current Diagnoses Unilateral primary osteoarthritis of first carpometacarpal joint, right hand (06/17/19) Unilateral primary osteoarthritis of first carpometacarpal joint, left hand (06/17/19) Physical Therapy Treatment Note PT-OP-A Visit Information Start: 04/01/19 12:15 Freq: Status: Active Protocol: Document 06/17/19 09:02 LRN (Rec: 06/17/19 09:50 LRN [id number]) Out-Patient Physical Therapy Visit Information Visit Information Visit Type Treatment Note Visit Start Time 09:02 Visit Stop Time 09:50 Total Visit Minutes 48 Visit Number 18 Number of CARD CLOTHIER Visits 0 Evaluation Information Evaluation Date 04/01/19 Precautions Precautions Lifting restriction: 20-40# Recent Cervical surgery with spacers placed. PT-OP-B Current Condition Start: 04/01/19 12:15 Freq: Status: Active Protocol: Document 04/01/19 12:46 LRN (Rec: 04/01/19 13:38 LRN [id number]) Current Condition History of Current Condition Onset Date 1 month ago Current Complaints L thumb (CMC) pain at rest and increased with use or pressure History of Current Condition Finished neck physical therapy this week. For the past month was having pain with the L thumb with weightbearing and squeezing objects. His pain is constant in nature rated at 2/10, but with pressure and use the pain increases to 5/10. States when there if pressure applied to the thumb (at the CMC joint) his pain is sharp in nature. He has been on Gabapentin for his neck and found the pain in his R arm was helped, but not in the L thumb. Can't play guitar. Prior Treatments and Tests MRI - 09/30/18 indicates tendinopathy of 1st extensor compartment and mild extensor carpi ulnaris tendinopathy, and probable small perforating tear involving the radial margin of the triangular fibrocartilage disc. Cortisone Injection - 11/10/18 with worsening of pain. Gabapentin that did not change L thumb pain. Future Testing and Treatments Planned Possible surgery to shave down arthritic changes. Treatment Goals Patient/Caregiver Goals Pt goal is to avoid surgery. Decreased constant pain. 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 Yoga class tolerating weightbearing in the L UE. 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 Baseline Function- Recreation/Hobbies Played a guitar 1 hour without pain or difficulty. Baseline Function- Other Occasional soreness of L hand with yoga Current Functional Impairments (Reported) Functional Limitations- ADL's Pain in the L thumb CMC jt is constant at 2/10, with weightbearing pain is 4-5/10. He states he is 1/4 of his normal strength. He is lifting restricted to 20 -40#. Functional Limitations- Work/School Currently is not back to work. Functional Limitations- Recreation/ Hurts playing the guitar. Hobbies Tires after 10 songs, ~20'-30' . Functional Limitations- Other Repositions hand to avoid WBing on the hand (for sit to stand transfers). Personal Factors Other Personal Factors That May Effect Prostate removed due to CA - 5 Therapy/Recovery .5 yrs ago. Arthritis, RAMOS's Hx of Neck surgery - to improve space of nerves PT-OP-C Subjective Start: 04/01/19 12:15 Freq: Status: Active Protocol: Document 06/17/19 09:02 LRN (Rec: 06/17/19 09:50 LRN [id number]) OP-PT Subjective Patient Comments Patient Comments Pain in L hand this morning just woke is 0-1/10. With weightbearing pain is pretty bad, 4-5/10. PT-OP-J Posture/Palpation/Skin Start: 04/01/19 12:15 Freq: Status: Active Protocol: Document 04/01/19 12:46 LRN (Rec: 04/01/19 13:38 LRN [id number]) Posture Evaluation [facility] Postural Classification System Elbow Flexion Test 2 Comments Posture Comments Mild fwd head, elevated L shoulder and scapula. Palpation Assessment Location L thumb Palpation Location L thumb at CMC joint and Thenar Beauty Palpation Findings Edema,Tenderness PT-OP-K Range of Motion Start: 04/01/19 12:15 Freq: Status: Active Protocol: Document 06/09/19 09:05 LRN (Rec: 06/09/19 10:06 LRN [id number]) Wrist Goniometric Range of Motion Wrist Left Flexion Active (degrees) 65 Flexion Passive (degrees) 65 Extension Active (degrees) 50 Extension Passive (degrees) 56 Ulnar Deviation Active (degrees) 20 Ulnar Deviation Passive (degrees) 21 Radial Deviation Active (degrees) 25 Radial Deviation Passive (degrees) 27 PT-OP-M Strength Start: 04/01/19 12:15 Freq: Status: Active Protocol: Document 05/05/19 09:51 LRN (Rec: 05/06/19 08:37 LRN [id number]) Hand Track Sweeper/Pinch Strength Hand Strength Right Tip Pinch (lbs) 24 Comments Track Sweeper strength (kg): 3 trials: 45, 38, 37 Left Comments Track Sweeper strength (kg): 3 trials: 32, 36, 32. No pain, pt avoided using thumb. PT-OP-Q Treatments Start: 04/01/19 12:15 Freq: Status: Active Protocol: Document 06/17/19 09:02 LRN (Rec: 06/17/19 09:50 LRN [id number]) Therapeutic Exercises Sitting Exercises Thumb Flex Sitting Exercise Name Thumb Flex Side left Equipment Used Blue T-Putty Thumb AD Sitting Exercise Name Thumb AD Side left Resistance Blue T-Putty Pronation/Supination Sitting Exercise Name Supination/Pronation Side left Resistance 4# Thumb extension Sitting Exercise Name Thumb ext with & without DIP flexed Side left Resistance Rubberband Reps/Minutes 6' Opposition Sitting Exercise Name Opposition with thumb returning to neutral UD/RD strengthening Sitting Exercise Name Active UD/RD strengthening Side left Resistance 2# Reps/Minutes 15x Gripping Sitting Exercise Name Squeezing blue putty Side left Reps/Minutes 2' Aleksandra stretch Sitting Exercise Name Thumb extensor stretch - Gentle Side left Reps/Minutes 10 hold x 10. Wrist flexion Sitting Exercise Name Wrist flexion stretch Side left Reps/Minutes 2' stretch bicep curls Sitting Exercise Name Bicep curl Resistance 5# Reps/Minutes 10x Comments Forearm in 3 positions: neutral, sup, pron wrist extension Sitting Exercise Name wrist ext stretch Side left Reps/Minutes 2' stretch Standing Exercises Weight bearing L hand Standing Exercise Name Weight bearing before & after exercise Comments Pain from L CMC > MCP jt Manual Therapy Treatment Soft Tissue Mobilization L forearm Body Location L thumb extensors and abductors. Mobilization Type Strumming,Sustained Pressure Intensity/Depth Moderate Body Position Sitting PT-OP-R Modalities Start: 04/01/19 12:15 Freq: Status: Active Protocol: Document 06/16/19 09:06 LRN (Rec: 06/16/19 09:50 LRN [id number]) Iontophoresis Treatment L CMC joint Treatment Medication Dexamethasone (-) Medication Amount (mL) (ml) 1 Medication Dosage 4mg/mL Treatment Polarity Negative to Negative Active Electrode Placement L CMC jt Dispersive Electrode Placement L lateral forearm Treatment Duration (minutes) 3 Ultrasound Therapy Treatment L thumb ext muscle Treatment Duration (minutes) 8 Patient Position Sitting Coupling Medium Ultrasound Gel Applicator Size (cm2) 2 Frequency Setting (mHz) 1 Mode Setting Pulsed Duty Cycle 50% Intensity Setting (w/cm2) 1.0 Comments Extra 4' of STM with soundhead PT-OP-T Assessment and Plan Start: 04/01/19 12:15 Freq: Status: Active Protocol: Document 06/17/19 09:02 LRN (Rec: 06/17/19 09:50 LRN [id number]) Physical Therapy Assessment Goals Four Impairment Swelling in L Thenar Beauty Short Term Goal (STG) Pt educated in joint protection and edema management techniques. 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 LTG Duration 06/13/19 (05/05/19: Pain only at R thumb, CMC jt. Strength less but less pn) Two Impairment Constant L thumb pain hindering activity tolerance. Short Term Goal (STG) Decrease pain by 50% (1/10 at rest & 2-3/10 with palpation). STG Duration 05/30/19 (06/09/19: Goal met, except improved WB tolerance) Halfway Goal (LTG) Eliminate L thumb pain at rest and mild discomfort (1-2/10) with weightbearing activities. (06/17/19: WB discomfort increases when leaning into the thumb ). LTG Duration 06/13/19 (05/09/19: Goal partially met) One Impairment Lacks appropriate self care program Halfway Goal (LTG) Pt will be independent with a self care HEP. LTG Duration 07/05/2019 (05/05/19: Progressing if needed) Assessment Summary Assessment Pt Blood pressure is borderline high at start of PT : 136/100, at end of PT: 140/ 108. Pt feeling iontophoresis treatments are helping due to pain being down . Pt was able to squeeze the putty without or with some discomfort. He is having none to minimal pain during the day with daily activities. WBing through the hand is his primary limiting function. He was able to hold a 1# wgt with thumb/little finger for supination and pronation with tolerable discomfort. Physical Therapy Plan Frequency and Duration Frequency of Treatment 2x/Week Duration of Treatment 2 months Plan of Care Start Date 05/12/19 Plan of Care End Date 07/12/19 Next Visit Focus/Plan Next Note Type Treatment Note Next Visit Plan Monitor BP. Check L thumb ROM . Try gentle thumb AB ex and Progress use of thumb with picking up small objects (can add to HEP). Continue for Iontophoresis (2 days in row). Improve L thumb and wrist flex/ext mobility, strengthen L hand. Remove brace for recreational and functional activities as tolerated. Pt to do thumb/wrist ROM ex and wear glove for edema management. Hold K-tape during use of ionto; pt using compression glove for edema. Hold cryotherapy due to ionto at end of therapy.
--- NOTE | 2019-07-01 12:27 | PT.OTN ---
Current Diagnoses Unilateral primary osteoarthritis of first carpometacarpal joint, right hand (07/01/19) Unilateral primary osteoarthritis of first carpometacarpal joint, left hand (07/01/19) Physical Therapy Treatment Note PT-OP-A Visit Information Start: 04/01/19 12:15 Freq: Status: Active Protocol: Document 07/01/19 11:22 LRN (Rec: 07/01/19 12:24 LRN [id number]) Out-Patient Physical Therapy Visit Information Visit Information Visit Type Treatment Note Visit Start Time 11:22 Visit Stop Time 12:02 Total Visit Minutes 40 Visit Number 19 Number of RADIOLOGICAL METALLURGIST Visits 0 Evaluation Information Evaluation Date 04/01/19 Precautions Precautions Lifting restriction: 20-40# Recent Cervical surgery with spacers placed. PT-OP-B Current Condition Start: 04/01/19 12:15 Freq: Status: Active Protocol: Document 04/01/19 12:46 LRN (Rec: 04/01/19 13:38 LRN [id number]) Current Condition History of Current Condition Onset Date 1 month ago Current Complaints L thumb (CMC) pain at rest and increased with use or pressure History of Current Condition Finished neck physical therapy this week. For the past month was having pain with the L thumb with weightbearing and squeezing objects. His pain is constant in nature rated at 2/10, but with pressure and use the pain increases to 5/10. States when there if pressure applied to the thumb (at the CMC joint) his pain is sharp in nature. He has been on Gabapentin for his neck and found the pain in his R arm was helped, but not in the L thumb. Can't play guitar. Prior Treatments and Tests MRI - 09/30/18 indicates tendinopathy of 1st extensor compartment and mild extensor carpi ulnaris tendinopathy, and probable small perforating tear involving the radial margin of the triangular fibrocartilage disc. Cortisone Injection - 11/10/18 with worsening of pain. Gabapentin that did not change L thumb pain. Future Testing and Treatments Planned Possible surgery to shave down arthritic changes. Treatment Goals Patient/Caregiver Goals Pt goal is to avoid surgery. Decreased constant pain. 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 Yoga class tolerating weightbearing in the L UE. 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 Baseline Function- Recreation/Hobbies Played a guitar 1 hour without pain or difficulty. Baseline Function- Other Occasional soreness of L hand with yoga Current Functional Impairments (Reported) Functional Limitations- ADL's Pain in the L thumb CMC jt is constant at 2/10, with weightbearing pain is 4-5/10. He states he is 1/4 of his normal strength. He is lifting restricted to 20 -40#. Functional Limitations- Work/School Currently is not back to work. Functional Limitations- Recreation/ Hurts playing the guitar. Hobbies Tires after 10 songs, ~20'-30' . Functional Limitations- Other Repositions hand to avoid WBing on the hand (for sit to stand transfers). Personal Factors Other Personal Factors That May Effect Prostate removed due to CA - 5 Therapy/Recovery .5 yrs ago. Arthritis, RAMOS's Hx of Neck surgery - to improve space of nerves PT-OP-C Subjective Start: 04/01/19 12:15 Freq: Status: Active Protocol: Document 07/01/19 11:22 LRN (Rec: 07/01/19 12:24 LRN [id number]) OP-PT Subjective Patient Comments Patient Comments Doesn't hurt as much, hasn't been doing yoga. Seems to okay cooking and playing guitar, not wearing anything while doing those activities. PT-OP-J Posture/Palpation/Skin Start: 04/01/19 12:15 Freq: Status: Active Protocol: Document 04/01/19 12:46 LRN (Rec: 04/01/19 13:38 LRN [id number]) Posture Evaluation Mauri Postural Classification System Elbow Flexion Test 2 Comments Posture Comments Mild fwd head, elevated L shoulder and scapula. Palpation Assessment Location L thumb Palpation Location L thumb at CMC joint and [place] Palpation Findings Edema,Tenderness PT-OP-K Range of Motion Start: 04/01/19 12:15 Freq: Status: Active Protocol: Document 07/01/19 11:22 LRN (Rec: 07/01/19 12:24 LRN [id number]) Thumb Goniometric Range of Motion Thumb Left CMC Flexion Active (degrees) 5 CMC Extension Active (degrees) 20 Thumb ROM Limitations Comments L thumb active AB is 27 deg's. PT-OP-M Strength Start: 04/01/19 12:15 Freq: Status: Active Protocol: Document 05/05/19 09:51 LRN (Rec: 05/06/19 08:37 LRN [id number]) Hand Reeling Operator/Pinch Strength Hand Strength Right Tip Pinch (lbs) 24 Comments Reeling Operator strength (kg): 3 trials: 45, 38, 37 Left Comments Reeling Operator strength (kg): 3 trials: 32, 36, 32. No pain, pt avoided using thumb. PT-OP-Q Treatments Start: 04/01/19 12:15 Freq: Status: Active Protocol: Document 07/01/19 11:22 LRN (Rec: 07/01/19 12:24 LRN [id number]) Therapeutic Exercises Sitting Exercises Thumb AB Sitting Exercise Name Thumb ABD against gravity Side left Reps/Minutes 10x Thumb Flex Sitting Exercise Name Thumb Flex Side left Equipment Used Blue T-Putty Thumb AD Sitting Exercise Name Thumb AD Side left Resistance Blue T-Putty Thumb Isometric Sitting Exercise Name AD Side left Comments Not tolerated well. Pronation/Supination Sitting Exercise Name Supination/Pronation Side left Resistance 4# Reps/Minutes 15x Thumb extension Sitting Exercise Name Thumb ext with & without DIP flexed Side left Resistance Rubberband Reps/Minutes 6' Comments Discomfort L Thumb PROM Sitting Exercise Name Passive L thumb AB Side left Reps/Minutes 1' Opposition Sitting Exercise Name Opposition with thumb returning to neutral UD/RD strengthening Sitting Exercise Name Active UD/RD strengthening Side left Resistance 2# Reps/Minutes 10x Gripping Sitting Exercise Name Squeezing blue putty Side left Reps/Minutes 2' Aleksandra stretch Sitting Exercise Name Thumb extensor stretch - Gentle Side left Reps/Minutes 10 hold x 10. Wrist flexion Sitting Exercise Name Wrist flexion stretch Side left Reps/Minutes 2' stretch bicep curls Sitting Exercise Name Bicep curl Resistance 5# Reps/Minutes 15x Comments Forearm in 3 positions: neutral, sup, pron wrist extension Sitting Exercise Name wrist ext stretch Side left Reps/Minutes 2' stretch Standing Exercises Weight bearing L hand Standing Exercise Name Weight bearing before & after exercise Comments Pain 1/10 @ L CMC in ~45 deg incline push up position. wall push ups Standing Exercise Name Wall Push up Reps/Minutes 10x Comments Discomfort pain 1/10 @ L CMC jt Manual Therapy Treatment Soft Tissue Mobilization L [place] Body Location L [place] STM & Stretch Mobilization Type Strumming Intensity/Depth Moderate Body Position Sitting PT-OP-R Modalities Start: 04/01/19 12:15 Freq: Status: Active Protocol: Document 07/01/19 11:22 LRN (Rec: 07/01/19 12:24 LRN [id number]) Iontophoresis Treatment L CMC joint Treatment Medication Dexamethasone (-) Medication Amount (mL) (ml) 1 Medication Dosage 4mg/mL Treatment Polarity Negative to Negative Active Electrode Placement L CMC jt Dispersive Electrode Placement L lateral forearm Treatment Duration (minutes) 5 PT-OP-T Assessment and Plan Start: 04/01/19 12:15 Freq: Status: Active Protocol: Document 07/01/19 11:22 LRN (Rec: 07/01/19 12:24 LRN [id number]) Physical Therapy Assessment Goals Four Impairment Swelling in L [place] Short Term Goal (STG) Pt educated in joint protection and edema management techniques. STG Duration 04/05/19 (04/08/19: GOAL MET) Three Impairment Decreased L hand curator natural [employer] Alf Goal (LTG) Pt will demonstrate normal curator [employer] history [employer] strength without pain. LTG Duration 06/13/19 (05/05/19: Pain only at R thumb, CMC jt. Strength less but less pn) Two Impairment Constant L thumb pain hindering activity tolerance. Short Term Goal (STG) Decrease pain by 50% (1/10 at rest & 2-3/10 with palpation). STG Duration 05/30/19 (06/09/19: GOAL MET) Alf Goal (LTG) Eliminate L thumb pain at rest and mild discomfort (1-2/10) with weightbearing activities. LTG Duration 06/13/19 (05/09/19: GOAL MET) One Impairment Lacks appropriate self care program Alf Goal (LTG) Pt will be independent with a self care HEP. LTG Duration 07/05/2019 (07/01/19: Progressing) Assessment Summary Assessment BP @ end of PT ~140/100. BP difficulty to hear due to noise in gym. Pt is much improved with ability to perform a push up in a modified position with pain 1/ 10. Pt pain is localized at L CMC joint as expected due to tears. Soft tissue @ L thenar eminence is the same. Physical Therapy Plan Frequency and Duration Frequency of Treatment 2x/Week Duration of Treatment 2 months Plan of Care Start Date 05/12/19 Plan of Care End Date 07/12/19 Next Visit Focus/Plan Next Note Type Treatment Note Next Visit Plan Check wrist ROM & curator [employer] strength. Add to HEP: Picking up small objects (can add to HEP). Continue for Iontophoresis (2 days in row). Improve L thumb and wrist flex/ext mobility, strengthen L hand. No brace for recreational and functional activities as tolerated. Hold K-tape and cryotherapy during use of ionto; pt using compression glove for edema. Discuss need for cont of therapy after 07/10/19, otherwise DC to HEP in 1 week.
--- NOTE | 2019-07-04 12:25 | PT.OTN ---
Current Diagnoses Unilateral primary osteoarthritis of first carpometacarpal joint, right hand (07/04/19) Unilateral primary osteoarthritis of first carpometacarpal joint, left hand (07/04/19) Physical Therapy Treatment Note PT-OP-A Visit Information Start: 04/01/19 12:15 Freq: Status: Active Protocol: Document 07/04/19 11:20 LRN (Rec: 07/04/19 12:21 LRN [id number]) Out-Patient Physical Therapy Visit Information Visit Information Visit Type Treatment Note Visit Start Time 11:20 Visit Stop Time 12:05 Total Visit Minutes 45 Visit Number 20 Number of WELDER APPRENTICE ARC Visits 0 PT-OP-B Current Condition Start: 04/01/19 12:15 Freq: Status: Active Protocol: Document 04/01/19 12:46 LRN (Rec: 04/01/19 13:38 LRN [id number]) Current Condition History of Current Condition Onset Date 1 month ago Current Complaints L thumb (CMC) pain at rest and increased with use or pressure History of Current Condition Finished neck physical therapy this week. For the past month was having pain with the L thumb with weightbearing and squeezing objects. His pain is constant in nature rated at 2/10, but with pressure and use the pain increases to 5/10. States when there if pressure applied to the thumb (at the CMC joint) his pain is sharp in nature. He has been on Gabapentin for his neck and found the pain in his R arm was helped, but not in the L thumb. Can't play guitar. Prior Treatments and Tests MRI - 09/30/18 indicates tendinopathy of 1st extensor compartment and mild extensor carpi ulnaris tendinopathy, and probable small perforating tear involving the radial margin of the triangular fibrocartilage disc. Cortisone Injection - 11/10/18 with worsening of pain. Gabapentin that did not change L thumb pain. Future Testing and Treatments Planned Possible surgery to shave down arthritic changes. Treatment Goals Patient/Caregiver Goals Pt goal is to avoid surgery. Decreased constant pain. 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 Yoga class tolerating weightbearing in the L UE. 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 Baseline Function- Recreation/Hobbies Played a guitar 1 hour without pain or difficulty. Baseline Function- Other Occasional soreness of L hand with yoga Current Functional Impairments (Reported) Functional Limitations- ADL's Pain in the L thumb CMC jt is constant at 2/10, with weightbearing pain is 4-5/10. He states he is 1/4 of his normal strength. He is lifting restricted to 20 -40#. Functional Limitations- Work/School Currently is not back to work. Functional Limitations- Recreation/ Hurts playing the guitar. Hobbies Tires after 10 songs, ~20'-30' . Functional Limitations- Other Repositions hand to avoid WBing on the hand (for sit to stand transfers). Personal Factors Other Personal Factors That May Effect Prostate removed due to CA - 5 Therapy/Recovery .5 yrs ago. Arthritis, RAMOS's Hx of Neck surgery - to improve space of nerves PT-OP-C Subjective Start: 04/01/19 12:15 Freq: Status: Active Protocol: Document 07/04/19 11:20 LRN (Rec: 07/04/19 12:21 LRN [id number]) OP-PT Subjective Patient Comments Patient Comments Did light weights at gym yesterday. Used 19# Kettle ohara with both hands and row 10# each side for 30, done with squats (hand in pronation ). States his guitar playing is limited by his neck, not hand pain. PT-OP-J Posture/Palpation/Skin Start: 04/01/19 12:15 Freq: Status: Active Protocol: Document 04/01/19 12:46 LRN (Rec: 04/01/19 13:38 LRN [id number]) Posture Evaluation Mauri Postural Classification System Elbow Flexion Test 2 Comments Posture Comments Mild fwd head, elevated L shoulder and scapula. Palpation Assessment Location L thumb Palpation Location L thumb at CMC joint and Then[place] Palpation Findings Edema,Tenderness PT-OP-K Range of Motion Start: 04/01/19 12:15 Freq: Status: Active Protocol: Document 07/04/19 11:20 LRN (Rec: 07/04/19 12:21 LRN [id number]) Wrist Goniometric Range of Motion Wrist Right Flexion Active (degrees) 70 Flexion Passive (degrees) 85 Extension Active (degrees) 85 Extension Passive (degrees) 87 Ulnar Deviation Active (degrees) 50 Ulnar Deviation Passive (degrees) 52 Radial Deviation Active (degrees) 33 Radial Deviation Passive (degrees) 42 Left Flexion Active (degrees) 67 Flexion Passive (degrees) 88 Extension Active (degrees) 82 Extension Passive (degrees) 93 Ulnar Deviation Active (degrees) 43 Ulnar Deviation Passive (degrees) 45 Radial Deviation Active (degrees) 30 Radial Deviation Passive (degrees) 35 PT-OP-M Strength Start: 04/01/19 12:15 Freq: Status: Active Protocol: Document 07/04/19 11:20 LRN (Rec: 07/04/19 12:21 LRN [id number]) Hand Hotel Recreational Facilities Manager/Pinch Strength Hand Dominance Hand Dominance Right Hand Strength Right Comments Hotel Recreational Facilities Manager strength (kg): 3 trials: 46, 38, 35. Left Comments Hotel Recreational Facilities Manager strength (kg): 3 trials: 40, 30, 30. No pain, pt avoided using thumb. PT-OP-Q Treatments Start: 04/01/19 12:15 Freq: Status: Active Protocol: Document 07/04/19 11:20 LRN (Rec: 07/04/19 12:21 LRN [id number]) Cardio Equipment Upper Body Ergometer (UBE) Duration (Minutes) 6 RPM 60 Seat Position 16 Height 3 Other fwd/back Therapeutic Exercises Sitting Exercises Wrist Flex strengthening Sitting Exercise Name Wrist flex strengthening Side left Equipment Used 5# Comments 10x 2 Thumb AB Sitting Exercise Name Thumb ABD against gravity Side left Reps/Minutes 10x Thumb Flex Sitting Exercise Name Thumb Flex Side left Equipment Used rubberband Thumb extension Sitting Exercise Name Thumb ext with & without DIP flexed Side left Resistance Rubberband Reps/Minutes 6' Comments Discomfort Wrist ext Sitting Exercise Name Wrist Ext strengthening Side left Elbow ext Sitting Exercise Name Elbow ext Side left Resistance 15# Reps/Minutes 10x 2 L Thumb PROM Sitting Exercise Name Passive L thumb AB Side left Reps/Minutes 1' Opposition Sitting Exercise Name Opposition with thumb returning to neutral Gripping Sitting Exercise Name Squeezing Hand dynomometer Aleksandra stretch Sitting Exercise Name Thumb extensor stretch - Gentle Side left Reps/Minutes 10 hold x 10. Wrist flexion Sitting Exercise Name Wrist flexion stretch Side left Reps/Minutes 2' stretch bicep curls Sitting Exercise Name Bicep curl Resistance 5# Reps/Minutes 10x 2 Comments Forearm in 3 positions: neutral, sup, pron wrist extension Sitting Exercise Name wrist ext stretch Side left Reps/Minutes 2' stretch Self-Care/Home Management Treatment Education Patient Education Home Exercise Program Activities Self-Care/Home Management Activities I/S pt in HEP of picking up small objects w/L hand for strengthening. PT-OP-R Modalities Start: 04/01/19 12:15 Freq: Status: Active Protocol: Document 07/04/19 11:20 LRN (Rec: 07/04/19 12:21 LRN [id number]) Iontophoresis Treatment L CMC joint Treatment Medication Dexamethasone (-) Medication Amount (mL) (ml) 1 Medication Dosage 4mg/mL Treatment Polarity Negative to Negative Active Electrode Placement L CMC jt Dispersive Electrode Placement L lateral forearm Treatment Duration (minutes) 5 PT-OP-T Assessment and Plan Start: 04/01/19 12:15 Freq: Status: Active Protocol: Document 07/04/19 11:20 LRN (Rec: 07/04/19 12:21 LRN [id number]) Physical Therapy Assessment Goals Four Impairment Swelling in L [place] Short Term Goal (STG) Pt educated in joint protection and edema management techniques. STG Duration 04/05/19 (04/08/19: GOAL MET) Three Impairment Decreased L hand furnace mason Snf Goal (LTG) Pt will demonstrate normal furnace mason strength without pain. LTG Duration 06/13/19 (1/2/10: Hotel Recreational Facilities Manager strength mildly less, no pain, not using thumb) Two Impairment Constant L thumb pain hindering activity tolerance. Short Term Goal (STG) Decrease pain by 50% (1/10 at rest & 2-3/10 with palpation). STG Duration 05/30/19 (06/09/19: GOAL MET) Solar Field Installation Crew Member Goal (LTG) Eliminate L thumb pain at rest and mild discomfort (1-2/10) with weightbearing activities. LTG Duration 06/13/19 (05/09/19: GOAL MET) One Impairment Lacks appropriate self care program Solar Field Installation Crew Member Goal (LTG) Pt will be independent with a self care HEP. LTG Duration 07/05/2019 (07/01/19: Progressing) Assessment Summary Assessment BP not measured. Pt improved in painfree L furnace mason strength and with L wrist AROM/PROM. He has mild tightness of L wrist flexion, UD/RD. Physical Therapy Plan Frequency and Duration Frequency of Treatment 2x/Week Duration of Treatment 2 months Plan of Care Start Date 05/12/19 Plan of Care End Date 07/12/19 Next Visit Focus/Plan Next Note Type Treatment Note Next Visit Plan Check BP, pinch strength. Add to HEP: supervisor purification small objects with reciprical stengthening of L thumb extensor. No brace for recreational and functional activities. Hold K-tape and cryotherapy during use of ionto. Continue for Iontophoresis (2 more visits) for pain reduction & strengthening L hand. Plan DC to HEP in 2 visits.
--- NOTE | 2019-07-04 15:49 | PT.OPPN ---
Current Diagnoses Unilateral primary osteoarthritis of first carpometacarpal joint, right hand (07/04/19) Unilateral primary osteoarthritis of first carpometacarpal joint, left hand (07/04/19) Physical Therapy Progress Note PT-OP-A Visit Information Start: 04/01/19 12:15 Freq: Status: Active Protocol: Document 07/04/19 11:20 LRN (Rec: 07/04/19 12:21 LRN [id number]) Out-Patient Physical Therapy Visit Information Visit Information Visit Type Treatment Note Visit Start Time 11:20 Visit Stop Time 12:05 Total Visit Minutes 45 Visit Number 20 Number of HUMAN RESOURCES OPERATIONS COORDINATOR Visits 0 PT-OP-B Current Condition Start: 04/01/19 12:15 Freq: Status: Active Protocol: Document 04/01/19 12:46 LRN (Rec: 04/01/19 13:38 LRN [id number]) Current Condition History of Current Condition Onset Date 1 month ago Current Complaints L thumb (CMC) pain at rest and increased with use or pressure History of Current Condition Finished neck physical therapy this week. For the past month was having pain with the L thumb with weightbearing and squeezing objects. His pain is constant in nature rated at 2/10, but with pressure and use the pain increases to 5/10. States when there if pressure applied to the thumb (at the CMC joint) his pain is sharp in nature. He has been on Gabapentin for his neck and found the pain in his R arm was helped, but not in the L thumb. Can't play guitar. Prior Treatments and Tests MRI - 09/30/18 indicates tendinopathy of 1st extensor compartment and mild extensor carpi ulnaris tendinopathy, and probable small perforating tear involving the radial margin of the triangular fibrocartilage disc. Cortisone Injection - 11/10/18 with worsening of pain. Gabapentin that did not change L thumb pain. Future Testing and Treatments Planned Possible surgery to shave down arthritic changes. Treatment Goals Patient/Caregiver Goals Pt goal is to avoid surgery. Decreased constant pain. 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 Yoga class tolerating weightbearing in the L UE. 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 Baseline Function- Recreation/Hobbies Played a guitar 1 hour without pain or difficulty. Baseline Function- Other Occasional soreness of L hand with yoga Current Functional Impairments (Reported) Functional Limitations- ADL's Pain in the L thumb CMC jt is constant at 2/10, with weightbearing pain is 4-5/10. He states he is 1/4 of his normal strength. He is lifting restricted to 20 -40#. Functional Limitations- Work/School Currently is not back to work. Functional Limitations- Recreation/ Hurts playing the guitar. Hobbies Tires after 10 songs, ~20'-30' . Functional Limitations- Other Repositions hand to avoid WBing on the hand (for sit to stand transfers). Personal Factors Other Personal Factors That May Effect Prostate removed due to CA - 5 Therapy/Recovery .5 yrs ago. Arthritis, RAMOS's Hx of Neck surgery - to improve space of nerves PT-OP-C Subjective Start: 04/01/19 12:15 Freq: Status: Active Protocol: Document 07/04/19 11:20 LRN (Rec: 07/04/19 12:21 LRN [id number]) OP-PT Subjective Patient Comments Patient Comments Did light weights at gym yesterday. Used 19# Kettle ohara with both hands and row 10# each side for 30, done with squats (hand in pronation ). States his guitar playing is limited by his neck, not hand pain. PT-OP-J Posture/Palpation/Skin Start: 04/01/19 12:15 Freq: Status: Active Protocol: Document 04/01/19 12:46 LRN (Rec: 04/01/19 13:38 LRN [id number]) Posture Evaluation Mauri Postural Classification System Elbow Flexion Test 2 Comments Posture Comments Mild fwd head, elevated L shoulder and scapula. Palpation Assessment Location L thumb Palpation Location L thumb at CMC joint and Thenar [place] Palpation Findings Edema,Tenderness PT-OP-K Range of Motion Start: 04/01/19 12:15 Freq: Status: Active Protocol: Document 07/04/19 11:20 LRN (Rec: 07/04/19 12:21 LRN [id number]) Wrist Goniometric Range of Motion Wrist Measured in Degrees Right Flexion Active (degrees) 70 Flexion Passive (degrees) 85 Extension Active (degrees) 85 Extension Passive (degrees) 87 Ulnar Deviation Active (degrees) 50 Ulnar Deviation Passive (degrees) 52 Radial Deviation Active (degrees) 33 Radial Deviation Passive (degrees) 42 Left Flexion Active (degrees) 67 Flexion Passive (degrees) 88 Extension Active (degrees) 82 Extension Passive (degrees) 93 Ulnar Deviation Active (degrees) 43 Ulnar Deviation Passive (degrees) 45 Radial Deviation Active (degrees) 30 Radial Deviation Passive (degrees) 35 PT-OP-M Strength Start: 04/01/19 12:15 Freq: Status: Active Protocol: Document 07/04/19 11:20 LRN (Rec: 07/04/19 12:21 LRN [id number]) Hand Clerk [address]/Pinch Strength Hand Dominance Hand Dominance Right Hand Strength Right Comments Clerk Of [address] Court strength (kg): 3 trials: 46, 38, 35. Left Comments Clerk Of [address] Court strength (kg): 3 trials: 40, 30, 30. No pain, pt avoided using thumb. PT-OP-T Assessment and Plan Start: 04/01/19 12:15 Freq: Status: Active Protocol: Document 07/04/19 11:20 LRN (Rec: 07/04/19 12:21 LRN [id number]) Physical Therapy Assessment Goals Four Impairment Swelling in L Thenar [place] Short Term Goal (STG) Pt educated in joint protection and edema management techniques. STG Duration 04/05/19 (04/08/19: GOAL MET) Three Impairment Decreased L hand librarian special library Jail Goal (LTG) Pt will demonstrate normal librarian special library strength without pain. LTG Duration 06/13/19 (1/2/10: Clerk Of [address] Court strength mildly less, no pain, not using thumb) Two Impairment Constant L thumb pain hindering activity tolerance. Short Term Goal (STG) Decrease pain by 50% (1/10 at rest & 2-3/10 with palpation). STG Duration 05/30/19 (06/09/19: GOAL MET) Field Cane Scaler Goal (LTG) Eliminate L thumb pain at rest and mild discomfort (1-2/10) with weightbearing activities. LTG Duration 06/13/19 (05/09/19: GOAL MET) One Impairment Lacks appropriate self care program Jail Goal (LTG) Pt will be independent with a self care HEP. LTG Duration 07/05/2019 (07/01/19: Progressing) Assessment Summary Assessment BP not measured. Pt improved in painfree L librarian special library strength and with L wrist AROM/PROM. He has mild tightness of L wrist flexion, UD/RD. Physical Therapy Plan Frequency and Duration Frequency of Treatment 2x/Week Duration of Treatment 2 months Plan of Care Start Date 05/12/19 Plan of Care End Date 07/12/19 Next Visit Focus/Plan Next Note Type Treatment Note Next Visit Plan Check BP, pinch strength. 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 No brace for recreational and functional activities. Hold K-tape and cryotherapy during use of ionto. Continue for Iontophoresis (2 more visits) for pain reduction & strengthening L hand. Plan DC to HEP in 2 visits.
--- NOTE | 2019-07-07 09:43 | PT.OTN ---
Current Diagnoses Unilateral primary osteoarthritis of first carpometacarpal joint, right hand (07/07/19) Unilateral primary osteoarthritis of first carpometacarpal joint, left hand (07/07/19) Physical Therapy Treatment Note PT-OP-A Visit Information Start: 04/01/19 12:15 Freq: Status: Active Protocol: Document 07/07/19 08:19 LRN (Rec: 07/07/19 09:08 LRN [id number]) Out-Patient Physical Therapy Visit Information Visit Information Visit Type Treatment Note Visit Start Time 08:19 Visit Stop Time 09:07 Total Visit Minutes 48 Visit Number 21 Number of INSPECTOR ASSEMBLIES AND INSTALLATIONS Visits 0 Evaluation Information Evaluation Date 04/01/19 Precautions Precautions Lifting restriction: 20-40# Recent Cervical surgery with spacers placed. PT-OP-B Current Condition Start: 04/01/19 12:15 Freq: Status: Active Protocol: Document 04/01/19 12:46 LRN (Rec: 04/01/19 13:38 LRN [id number]) Current Condition History of Current Condition Onset Date 1 month ago Current Complaints L thumb (CMC) pain at rest and increased with use or pressure History of Current Condition Finished neck physical therapy this week. For the past month was having pain with the L thumb with weightbearing and squeezing objects. His pain is constant in nature rated at 2/10, but with pressure and use the pain increases to 5/10. States when there if pressure applied to the thumb (at the CMC joint) his pain is sharp in nature. He has been on Gabapentin for his neck and found the pain in his R arm was helped, but not in the L thumb. Can't play guitar. Prior Treatments and Tests MRI - 09/30/18 indicates tendinopathy of 1st extensor compartment and mild extensor carpi ulnaris tendinopathy, and probable small perforating tear involving the radial margin of the triangular fibrocartilage disc. Cortisone Injection - 11/10/18 with worsening of pain. Gabapentin that did not change L thumb pain. Future Testing and Treatments Planned Possible surgery to shave down arthritic changes. Treatment Goals Patient/Caregiver Goals Pt goal is to avoid surgery. Decreased constant pain. 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 Yoga class tolerating weightbearing in the L UE. 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 Baseline Function- Recreation/Hobbies Played a guitar 1 hour without pain or difficulty. Baseline Function- Other Occasional soreness of L hand with yoga Current Functional Impairments (Reported) Functional Limitations- ADL's Pain in the L thumb CMC jt is constant at 2/10, with weightbearing pain is 4-5/10. He states he is 1/4 of his normal strength. He is lifting restricted to 20 -40#. Functional Limitations- Work/School Currently is not back to work. Functional Limitations- Recreation/ Hurts playing the guitar. Hobbies Tires after 10 songs, ~20'-30' . Functional Limitations- Other Repositions hand to avoid WBing on the hand (for sit to stand transfers). Personal Factors Other Personal Factors That May Effect Prostate removed due to CA - 5 Therapy/Recovery .5 yrs ago. Arthritis, RAMOS's Hx of Neck surgery - to improve space of nerves PT-OP-C Subjective Start: 04/01/19 12:15 Freq: Status: Active Protocol: Document 07/07/19 08:19 LRN (Rec: 07/07/19 09:08 LRN [id number]) OP-PT Subjective Patient Comments Patient Comments No difficulties. Took down and put away all Xmas stuff and played guitar like usual. Has regular soreness, pain 1- 2 and sometimes 3 when gripping at odd angle. Doing a lot of hand stretching. PT-OP-J Posture/Palpation/Skin Start: 04/01/19 12:15 Freq: Status: Active Protocol: Document 04/01/19 12:46 LRN (Rec: 04/01/19 13:38 LRN [id number]) Posture Evaluation Mauri Postural Classification System Elbow Flexion Test 2 Comments Posture Comments Mild fwd head, elevated L shoulder and scapula. Palpation Assessment Location L thumb Palpation Location L thumb at CMC joint and Thenar [place] Palpation Findings Edema,Tenderness PT-OP-K Range of Motion Start: 04/01/19 12:15 Freq: Status: Active Protocol: Document 07/04/19 11:20 LRN (Rec: 07/04/19 12:21 LRN [id number]) Wrist Goniometric Range of Motion Wrist Right Flexion Active (degrees) 70 Flexion Passive (degrees) 85 Extension Active (degrees) 85 Extension Passive (degrees) 87 Ulnar Deviation Active (degrees) 50 Ulnar Deviation Passive (degrees) 52 Radial Deviation Active (degrees) 33 Radial Deviation Passive (degrees) 42 Left Flexion Active (degrees) 67 Flexion Passive (degrees) 88 Extension Active (degrees) 82 Extension Passive (degrees) 93 Ulnar Deviation Active (degrees) 43 Ulnar Deviation Passive (degrees) 45 Radial Deviation Active (degrees) 30 Radial Deviation Passive (degrees) 35 PT-OP-M Strength Start: 04/01/19 12:15 Freq: Status: Active Protocol: Document 07/04/19 11:20 LRN (Rec: 07/04/19 12:21 LRN [id number]) Hand Recycle Worker/Pinch Strength Hand Dominance Hand Dominance Right Hand Strength Right Comments Recycle Worker strength (kg): 3 trials: 46, 38, 35. Left Comments Recycle Worker strength (kg): 3 trials: 40, 30, 30. No pain, pt avoided using thumb. PT-OP-Q Treatments Start: 04/01/19 12:15 Freq: Status: Active Protocol: Document 07/07/19 08:19 LRN (Rec: 07/07/19 09:08 LRN [id number]) Cardio Equipment Upper Body Ergometer (UBE) Duration (Minutes) 7 RPM 70 Seat Position 16 Height 3 Other fwd/back Therapeutic Exercises Sitting Exercises Thumb Ext Sitting Exercise Name Thumb Ext Side left Equipment Used Yellow Big Clips Reps/Minutes 8' Comments Alternating with Rubber band ex for opposite direcion Thumb Flex Sitting Exercise Name Thumb Flex Side left Equipment Used rubberband Pronation/Supination Sitting Exercise Name Supination/Pronation Side left Resistance 4# Reps/Minutes 15x Thumb extension Sitting Exercise Name Thumb ext with & without DIP flexed Side left Resistance Rubberband Reps/Minutes 6' Comments Discomfort Wrist ext Sitting Exercise Name Wrist Ext stretch Side left Elbow ext Sitting Exercise Name Elbow ext Side left Resistance 20# Reps/Minutes 10x 2 Opposition Sitting Exercise Name Opposition with thumb returning to neutral Side left Comments Digits 3,4, & 3,4,5. Quick and Long holds. UD/RD strengthening Sitting Exercise Name Active UD/RD strengthening Side left Resistance 4# RD, 5#UD Reps/Minutes 10x Aleksandra stretch Sitting Exercise Name Thumb extensor stretch - Gentle Side left Reps/Minutes 10 hold x 10. Wrist flexion Sitting Exercise Name Wrist flexion stretch Side left Reps/Minutes 2' stretch bicep curls Sitting Exercise Name Bicep curl Resistance 5# Reps/Minutes 10x 2 Comments Forearm in 3 positions: neutral, sup, pron wrist extension Sitting Exercise Name wrist ext stretch Side left Reps/Minutes 2' stretch Standing Exercises Clothes Pin Standing Exercise Name Yellow & Red Opening/Closing Side left Reps/Minutes 3' x 2 PT-OP-R Modalities Start: 04/01/19 12:15 Freq: Status: Active Protocol: Document 07/07/19 08:19 LRN (Rec: 07/07/19 09:08 LRN [id number]) Iontophoresis Treatment L CMC joint Treatment Medication Dexamethasone (-) Medication Amount (mL) (ml) 1 Medication Dosage 4mg/mL Treatment Polarity Negative to Negative Active Electrode Placement L CMC jt Dispersive Electrode Placement L lateral forearm Treatment Duration (minutes) 5 PT-OP-T Assessment and Plan Start: 04/01/19 12:15 Freq: Status: Active Protocol: Document 07/07/19 08:19 LRN (Rec: 07/07/19 09:08 LRN [id number]) Physical Therapy Assessment Goals Four Impairment Swelling in L Thenar [place] Short Term Goal (STG) Pt educated in joint protection and edema management techniques. 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 LTG Duration 06/13/19 (/2: Recycle Worker strength mildly less, no pain, not using thumb) Two Impairment Constant L thumb pain hindering activity tolerance. Short Term Goal (STG) Decrease pain by 50% (1/10 at rest & 2-3/10 with palpation). STG Duration 05/30/19 (06/09/19: GOAL MET) Half-Way Goal (LTG) Eliminate L thumb pain at rest and mild discomfort (1-2/10) with weightbearing activities. LTG Duration 06/13/19 (07/07/19: GOAL PARTIALLY MET, WBing pain 0-3/ 10) One Impairment Lacks appropriate self care program Compressor Station Engineer Chief Goal (LTG) Pt will be independent with a self care HEP. LTG Duration 07/05/2019 (07/07/19 GOAL MET) Assessment Summary Assessment The pt has overall improved functional use of his L hand for gripping and general use He is able to use his L hand for functional activities without the use of his thumb brace and is able to play his guitar with tolerable discomfort. He rates his apin as ranging from 0/10 at rest to 3/10 at its worst. Today he demonstrated weakness with opposition of only his 4th & 5th digits during and exercise of opening a clothes pin opening of Yellow Clothes pin. At end of therapy BP was 140/100. The pt has seen his primary care provider for his blood pressure, but should be monitored. Physical Therapy Plan Frequency and Duration Plan of Care Start Date 05/12/19 Plan of Care End Date 07/12/19 Discharge Physical Therapy Discharge Comments Pt has met most goals. The pt feels his nuclear operator strength is normal, but his strength measured was without use of his L thumb for an opposition type motion. His L thumb pain with weightbearing activities ranges from 0-3/10. Most of his pain appears to eminate from his L. CMC joint. He is not painfree as expected due to his soft tissue dysfunction at the radial attachment of the triangular fibrocartilage disc; therefore further therapy in the future may be needed. He responded very well to the use of iontophoresis.
--- NOTE | 2019-07-07 09:47 | PT.OPDS ---
Current Diagnoses Unilateral primary osteoarthritis of first carpometacarpal joint, right hand (07/07/19) Unilateral primary osteoarthritis of first carpometacarpal joint, left hand (07/07/19) Visit Care Team Role Provider Type VALERY Atnoine Primary Care Provider Non-Staff Specialty: Family Practice Address: [address] [place] [address], [address], [place], [address] Email: Bryan Cintron MD Attending Provider Physician Specialty: Orthopedic Surgery Address: [address] [place] [address], [place], [address] Email: [email or web address] Visit Number Visit Number 21 Discharge Summary PT-OP-B Current Condition Start: 04/01/19 12:15 Freq: Status: Active Protocol: Document 04/01/19 12:46 LRN (Rec: 04/01/19 13:38 LRN [id number]) Current Condition History of Current Condition Onset Date 1 month ago Current Complaints L thumb (CMC) pain at rest and increased with use or pressure History of Current Condition Finished neck physical therapy this week. For the past month was having pain with the L thumb with weightbearing and squeezing objects. His pain is constant in nature rated at 2/10, but with pressure and use the pain increases to 5/10. States when there if pressure applied to the thumb (at the CMC joint) his pain is sharp in nature. He has been on Gabapentin for his neck and found the pain in his R arm was helped, but not in the L thumb. Can't play guitar. Prior Treatments and Tests MRI - 09/30/18 indicates tendinopathy of 1st extensor compartment and mild extensor carpi ulnaris tendinopathy, and probable small perforating tear involving the radial margin of the triangular fibrocartilage disc. Cortisone Injection - 11/10/18 with worsening of pain. Gabapentin that did not change L thumb pain. Future Testing and Treatments Planned Possible surgery to shave down arthritic changes. Treatment Goals Patient/Caregiver Goals Pt goal is to avoid surgery. Decreased constant pain. 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 Yoga class tolerating weightbearing in the L UE. 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 Baseline Function- Recreation/Hobbies Played a guitar 1 hour without pain or difficulty. Baseline Function- Other Occasional soreness of L hand with yoga Current Functional Impairments (Reported) Functional Limitations- ADL's Pain in the L thumb CMC jt is constant at 2/10, with weightbearing pain is 4-5/10. He states he is 1/4 of his normal strength. He is lifting restricted to 20 -40#. Functional Limitations- Work/School Currently is not back to work. Functional Limitations- Recreation/ Hurts playing the guitar. Hobbies Tires after 10 songs, ~20'-30' . Functional Limitations- Other Repositions hand to avoid WBing on the hand (for sit to stand transfers). Personal Factors Other Personal Factors That May Effect Prostate removed due to CA - 5 Therapy/Recovery .5 yrs ago. Arthritis, RAMOS's Hx of Neck surgery - to improve space of nerves PT-OP-C Subjective Start: 04/01/19 12:15 Freq: Status: Active Protocol: Document 07/07/19 08:19 LRN (Rec: 07/07/19 09:08 LRN [id number]) OP-PT Subjective Patient Comments Patient Comments No difficulties. Took down and put away all Xmas stuff and played guitar like usual. Has regular soreness, pain 1- 2 and sometimes 3 when gripping at odd angle. Doing a lot of hand stretching. Patient Questionnaires Quick Dash- Upper Extremity Quick Dash UE Score 27 Quick Dash UE Impairment 20 to 39% Impaired (Score 20- 39) PT-OP-J Posture/Palpation/Skin Start: 04/01/19 12:15 Freq: Status: Active Protocol: Document 04/01/19 12:46 LRN (Rec: 04/01/19 13:38 LRN [id number]) Posture Evaluation Mauri Postural Classification System Elbow Flexion Test 2 Comments Posture Comments Mild fwd head, elevated L shoulder and scapula. Palpation Assessment Location L thumb Palpation Location L thumb at CMC joint and Thenar [place] Palpation Findings Edema,Tenderness PT-OP-K Range of Motion Start: 04/01/19 12:15 Freq: Status: Active Protocol: Document 07/04/19 11:20 LRN (Rec: 07/04/19 12:21 LRN [id number]) Wrist Goniometric Range of Motion Wrist Right Flexion Active (degrees) 70 Flexion Passive (degrees) 85 Extension Active (degrees) 85 Extension Passive (degrees) 87 Ulnar Deviation Active (degrees) 50 Ulnar Deviation Passive (degrees) 52 Radial Deviation Active (degrees) 33 Radial Deviation Passive (degrees) 42 Left Flexion Active (degrees) 67 Flexion Passive (degrees) 88 Extension Active (degrees) 82 Extension Passive (degrees) 93 Ulnar Deviation Active (degrees) 43 Ulnar Deviation Passive (degrees) 45 Radial Deviation Active (degrees) 30 Radial Deviation Passive (degrees) 35 PT-OP-M Strength Start: 04/01/19 12:15 Freq: Status: Active Protocol: Document 07/04/19 11:20 LRN (Rec: 07/04/19 12:21 LRN [id number]) Hand Marketing Rep/Pinch Strength Hand Dominance Hand Dominance Right Hand Strength Right Comments Marketing Rep strength (kg): 3 trials: 46, 38, 35. Left Comments Marketing Rep strength (kg): 3 trials: 40, 30, 30. No pain, pt avoided using thumb. PT-OP-T Assessment and Plan Start: 04/01/19 12:15 Freq: Status: Active Protocol: Document 07/07/19 08:19 LRN (Rec: 07/07/19 09:08 LRN [id number]) Physical Therapy Assessment Goals Four Impairment Swelling in L Thenar [place] Short Term Goal (STG) Pt educated in joint protection and edema management techniques. 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 LTG Duration 06/13/19 (07/03/09: Marketing Rep strength mildly less, no pain, not using thumb) Two Impairment Constant L thumb pain hindering activity tolerance. Short Term Goal (STG) Decrease pain by 50% (1/10 at rest & 2-3/10 with palpation). STG Duration 05/30/19 (06/09/19: GOAL MET) Entry Level Electrical Engineer Goal (LTG) Eliminate L thumb pain at rest and mild discomfort (1-2/10) with weightbearing activities. LTG Duration 06/13/19 (07/07/19: GOAL PARTIALLY MET, WBing pain 0-3/ 10) One Impairment Lacks appropriate self care program Entry Level Electrical Engineer Goal (LTG) Pt will be independent with a self care HEP. LTG Duration 07/05/2019 (07/07/19 GOAL MET) Assessment Summary Assessment The pt has overall improved functional use of his L hand for gripping and general use He is able to use his L hand for functional activities without the use of his thumb brace and is able to play his guitar with tolerable discomfort. He rates his apin as ranging from 0/10 at rest to 3/10 at its worst. Today he demonstrated weakness with opposition of only his 4th & 5th digits during and exercise of opening a clothes pin opening of Yellow Clothes pin. At end of therapy BP was 140/100. The pt has seen his primary care provider for his blood pressure, but should be monitored. Physical Therapy Plan Frequency and Duration Plan of Care Start Date 05/12/19 Plan of Care End Date 07/12/19 Discharge Physical Therapy Discharge Comments Pt has met most goals. The pt feels his oyster preparer strength is normal, but his strength measured was without use of his L thumb for an opposition type motion. His L thumb pain with weightbearing activities ranges from 0-3/10. Most of his pain appears to eminate from his L. CMC joint. He is not painfree as expected due to his soft tissue dysfunction at the radial attachment of the triangular fibrocartilage disc; therefore further therapy in the future may be needed. He responded very well to the use of iontophoresis.
== END 2019-07-07 14:13 ==
LOC: PHYS 08:15
PROVIDERS: PCP Nurse Practitioner Adult Health; Visit Provider Orthopaedic Surgery
DX: M18.0 Bilateral primary osteoarthritis of first carpometacarpal joints (principal)
CPT/HCPCS: 97010; 97018; 97033; 97035; 97110; 97140; 97162

== ENCOUNTER 2019-08-20 09:00 | Outpatient (RCR) | payer OTHER, SELFPAY ==
--- NOTE | 2018-12-30 14:45 | PT.OIE ---
Current Diagnoses Spinal stenosis, cervical region (12/30/18) Abnormal posture (12/30/18) Weakness (12/30/18) Past Medical History (Last Reviewed 07/18/18 @ 12:30 by Montez Sanz MD) Colon polyps (Chronic ~2009) Elevated PSA (Chronic ~2012) Meralgia paresthetica (Chronic) Prostate cancer (Chronic ~2013) Seasonal allergies (Chronic) Past Surgical History (Last Reviewed 07/18/18 @ 12:30 by Montez Sanz MD) Anesthesia (Resolved) History of vasectomy (Resolved) Status post radical cystoprostatectomy (10/13/13) Provider Visit Care Team Role Provider Type VALERY Antoine Primary Care Provider Non-Staff Specialty: Family Practice Address: [address] [place] [address], [facility], [place], [address] Email: Ulices Duong MD Attending Provider Non-Staff Specialty: Medical Address: [address] [place] [address], [facility] Email: Physical Therapy Initial Evaluation PT-OP-A Visit Information Start: 12/30/18 09:09 Freq: Status: Active Protocol: Document 12/30/18 11:15 [facility] (Rec: 12/30/18 12:09 [facility] [id number]) Out-Patient Physical Therapy Visit Information Visit Information Visit Type Initial Evaluation Visit Start Time 11:19 Visit Stop Time 12:04 Total Visit Minutes 45 Visit Number 1 Number of JANITOR CUSTODIAN Visits 0 Precautions Precautions No greater than 8 lb lifting; no resistance with recumbant bike; avoid strenuous activity PT-OP-B Current Condition Start: 12/30/18 09:09 Freq: Status: Active Protocol: Document 12/30/18 11:15 [facility] (Rec: 12/30/18 12:09 [facility] [id number]) Current Condition History of Current Condition Onset Date 11/27/18 Current Complaints neck pain post surgery History of Current Condition Pt reports he had a C5-6 ant cervical discectomy w/ arthrodesis w/ant cervical plate on11/27/18 d/t dec B seed tester strength & inc pain. Pt has nott been able to work since Jul. Pt is allowed to go on long walks and hikes Treatment Goals Patient/Caregiver Goals Return to work moy, build back up UE strength PT-OP-C Subjective Start: 12/30/18 09:09 Freq: Status: Active Protocol: Document 12/30/18 11:15 [facility] (Rec: 12/30/18 12:09 [facility] [id number]) Patient Questionnaires Neck Disability Index NDI Score 19 Neck Disability Index Impairment 20 to 39% Impaired (Score 10- 19) Quick Dash- Upper Extremity Quick Dash UE Score 25 Quick Dash UE Impairment 20 to 39% Impaired (Score 20- 39) OP-PT Pain Assessment Location neck pain Pain Location Details post neck B Intensity 2 Scale Used Numeric (1 - 10) Description Dull Frequency Intermittent Variations/Patterns occasional arm pain w/lifting Pain Aggravating Factors Lifting Other Pain Aggravating Factors flex, ext, wrong head position at night Other Pain Alleviating Factors change position PT-OP-F Manual Assessment Start: 12/30/18 09:09 Freq: Status: Active Protocol: Document 12/30/18 11:15 [facility] (Rec: 12/30/18 14:08 [facility] [id number]) Manual Assessments Soft Tissue Assessment Soft Tissue Mobility Assessment tightness along scar, UT, LS, cervical paraspinals, scalenes & SCM B PT-OP-J Posture/Palpation/Skin Start: 12/30/18 09:09 Freq: Status: Active Protocol: Document 12/30/18 11:15 [facility] (Rec: 12/30/18 12:09 [facility] [id number]) Posture Evaluation [facility] Postural Classification System Mauri Postural Classifications Vertical/Posterior Elbow Flexion Test 0 Comments Posture Comments inc kyphosis & fwd head & shoulder PT-OP-K Range of Motion Start: 12/30/18 09:09 Freq: Status: Active Protocol: Document 12/30/18 11:15 [facility] (Rec: 12/30/18 12:09 [facility] [id number]) Cervical Spine Range of Motion Cervical Spine Active Degrees Testing Position Sitting Flexion 40 Extension 28 Rotation Left 44 Rotation Right 40 Lateral Flexion Left 22 Lateral Flexion Right 30 ROM Limitations Soft Tissue Tightness Pain PT-OP-L Special Tests Start: 12/30/18 09:09 Freq: Status: Active Protocol: Document 12/30/18 11:15 [facility] (Rec: 12/30/18 12:09 [facility] [id number]) Special Tests Cervical Spine Special Tests Shoulder Abduction Test Test Results about 110 B Alar Ligament Test Results neg Neural Special Tests- Upper Body Radial Nerve Tension Test Results neg B Median Nerve Tension Test Results Neg B Ulnar Nerve Tension Test Results neg B PT-OP-M Strength Start: 12/30/18 09:09 Freq: Status: Active Protocol: Document 12/30/18 11:15 [facility] (Rec: 12/30/18 12:09 [facility] [id number]) Shoulder Strength Shoulder Manual Muscle Testing Right Flexion 4- Good- Extension 4 Good Abduction (C5) 3+ Fair+ External Rotation 4+ Good+ Internal Rotation 4+ Good+ Left Flexion 4- Good- Extension 4 Good Abduction (C5) 3+ Fair+ External Rotation 4+ Good+ Internal Rotation 4+ Good+ Elbow/Forearm Strength Elbow and Forearm Manual Muscle Testing Right Flexion (C6) 4 Good Extension (C7) 4 Good Pronation 4- Good- Supination 4+ Good+ Left Flexion (C6) 4 Good Extension (C7) 4 Good Pronation 4- Good- Supination 4+ Good+ Wrist Strength Wrist Manual Muscle Testing Right Flexion (C7) 4+ Good+ Extension (C6) 5 Normal Ulnar Deviation 5 Normal Radial Deviation 5 Normal Left Flexion (C7) 4+ Good+ Extension (C6) 5 Normal Ulnar Deviation 5 Normal Radial Deviation 5 Normal Hand Brick Offbearer/Pinch Strength Hand Strength Right Brick Offbearer (lbs) 85 Left Brick Offbearer (lbs) 90 PT-OP-Q Treatments Start: 12/30/18 09:09 Freq: Status: Active Protocol: Document 12/30/18 11:15 [facility] (Rec: 12/30/18 14:08 [facility] [id number]) Therapeutic Exercises Standing Exercises pec stretch Standing Exercise Name corner 90/90 Side bilateral Reps/Minutes 30 sec wall posture Standing Exercise Name w/90/90 ER Side bilateral Reps/Minutes 10 Comments pillow behind head Manual Therapy Treatment Soft Tissue Mobilization cervical paraspinals Body Location B Mobilization Type Rolling Intensity/Depth Moderate Body Position Supine SOR Body Location SOR Mobilization Type Sustained Pressure Intensity/Depth Moderate PT-OP-T Assessment and Plan Start: 12/30/18 09:09 Freq: Status: Active Protocol: Document 12/30/18 11:15 [facility] (Rec: 12/30/18 12:09 [facility] [id number]) Physical Therapy Assessment Rehab Potential Rehabilitation Potential Good Evaluation Complexity Number of Personal Factors/Comorbidities 3 or More Number of Body Systems Impaired 4 or More Clinical Presentation at Evaluation Evolving Impairments Impairments Activity Tolerance Functional Activities Functional Mobility Pain Posture ROM Soft Tissue Mobility Strength Goals ROM Fci Goal (LTG) Pt will have WNL cervical ROM in order to allow him to do typical daily activities like reading, driving, looking up without pian. LTG Duration 03/02/19 strenght Short Term Goal (STG) Pt will be indep with HEP STG Duration 01/30/19 Fci Goal (LTG) Pt will have 5/5 UE strength & EFT in order to show improved stability LTG Duration 03/02/19 work Short Term Goal (STG) Pt will have average seed tester strength for his age allowing him to do his job abilities ( 110 B) Fci Goal (LTG) Pt will be able to return to work with min restrictions. LTG Duration 03/02/19 NDI Short Term Goal (STG) Pt will have score of 10/50 in order to show improved functional ability. STG Duration 01/30/19 Fci Goal (LTG) Pt will have score of no greater than 2/50 in order to show good functional ability LTG Duration 03/02/19 Assessment Summary Assessment Pt presents 1 month C5-6 ant discectomy with arthrodesis w/ a placement of ant cervical plate with dec ROM, impaired posture, dec UE strength, and overall dec functional activity. Pt would benefit from skilled PT to improve these deficits. Physical Therapy Plan Frequency and Duration Frequency of Treatment 2x/Week Duration of Treatment 2 months Plan of Care Start Date 12/30/18 Plan of Care End Date 03/02/19 Therapeutic Interventions Therapeutic Interventions Aquatic Therapy Home Exercise Program Joint Mobilizations Manual Therapy Neuromuscular Re-education Patient/Caregiver Education Self-Care/Home Management Soft Tissue Mobilization Taping Therapeutic Activities Therapeutic Exercises Modalities Cold Pack/Ice Massage Electric Stimulation Hot Packs Infrared Therapy Iontophoresis Traction- Mechanical Ultrasound Next Visit Focus/Plan Next Note Type Treatment Note Next Visit Plan roll and reach, foam roll thoracic & overhead, postural training, cervical ROM & positioning, STM
--- NOTE | 2018-12-30 14:45 | PT.OPPOC ---
Current Diagnoses Spinal stenosis, cervical region (12/30/18) Abnormal posture (12/30/18) Weakness (12/30/18) Provider Visit Care Team Role Provider Type VALERY Antoine Primary Care Provider Non-Staff Specialty: Family Practice Address: [address] [place] [address], [address], [place], [address] Email: Ulices Duong MD Attending Provider Non-Staff Specialty: Medical Address: [address] [place] [address], [id number] Email: Plan Of Care PT-OP-T Assessment and Plan Start: 12/30/18 09:09 Freq: Status: Active Protocol: Document 12/30/18 11:15 [facility] (Rec: 12/30/18 12:09 [facility] [id number]) Physical Therapy Assessment Rehab Potential Rehabilitation Potential Good Evaluation Complexity Number of Personal Factors/Comorbidities 3 or More Number of Body Systems Impaired 4 or More Clinical Presentation at Evaluation Evolving Impairments Impairments Activity Tolerance Functional Activities Functional Mobility Pain Posture ROM Soft Tissue Mobility Strength Goals ROM Prison Goal (LTG) Pt will have WNL cervical ROM in order to allow him to do typical daily activities like reading, driving, looking up without pian. LTG Duration 03/02/19 strenght Short Term Goal (STG) Pt will be indep with HEP STG Duration 01/30/19 Prison Goal (LTG) Pt will have 5/5 UE strength & EFT in order to show improved stability LTG Duration 03/02/19 work Short Term Goal (STG) Pt will have average physicians assistant strength for his age allowing him to do his job abilities ( 110 B) Carpet Binder Goal (LTG) Pt will be able to return to work with min restrictions. LTG Duration 03/02/19 NDI Short Term Goal (STG) Pt will have score of 10/50 in order to show improved functional ability. STG Duration 01/30/19 Carpet Binder Goal (LTG) Pt will have score of no greater than 2/50 in order to show good functional ability LTG Duration 03/02/19 Assessment Summary Assessment Pt presents 1 month C5-6 ant discectomy with arthrodesis w/ a placement of ant cervical plate with dec ROM, impaired posture, dec UE strength, and overall dec functional activity. Pt would benefit from skilled PT to improve these deficits. Physical Therapy Plan Frequency and Duration Frequency of Treatment 2x/Week Duration of Treatment 2 months Plan of Care Start Date 12/30/18 Plan of Care End Date 03/02/19 Therapeutic Interventions Therapeutic Interventions Aquatic Therapy Home Exercise Program Joint Mobilizations Manual Therapy Neuromuscular Re-education Patient/Caregiver Education Self-Care/Home Management Soft Tissue Mobilization Taping Therapeutic Activities Therapeutic Exercises Modalities Cold Pack/Ice Massage Electric Stimulation Hot Packs Infrared Therapy Iontophoresis Traction- Mechanical Ultrasound Next Visit Focus/Plan Next Note Type Treatment Note Next Visit Plan roll and reach, foam roll thoracic & overhead, postural training, cervical ROM & positioning, STM Plan of Care Dates Plan of Care Start Date 12/30/18 Plan of Care End Date 03/02/19 Please Sign and Return: I have reviewed this Plan of Care and certify that the skilled therapy services above are required to meet the patient?s needs. Physician Signature Date Printed Name and Credentials Clinical Instructor Signature Printed Name and Credentials
--- NOTE | 2019-01-07 10:30 | PT.OTN ---
Current Diagnoses Spinal stenosis, cervical region (01/07/19) Abnormal posture (01/07/19) Weakness (01/07/19) Physical Therapy Treatment Note PT-OP-A Visit Information Start: 12/30/18 09:09 Freq: Status: Active Protocol: Document 01/07/19 09:47 [facility] (Rec: 01/07/19 10:28 [facility] [id number]) Out-Patient Physical Therapy Visit Information Visit Information Visit Type Treatment Note Visit Start Time 09:47 Visit Stop Time 10:27 Total Visit Minutes 40 Visit Number 2 Number of CRISIS CLINICIAN Visits 0 PT-OP-B Current Condition Start: 12/30/18 09:09 Freq: Status: Active Protocol: Document 12/30/18 11:15 [facility] (Rec: 12/30/18 12:09 [facility] [id number]) Current Condition History of Current Condition Onset Date 11/27/18 Current Complaints neck pain post surgery History of Current Condition Pt reports he had a C5-6 ant cervical discectomy w/ arthrodesis w/ant cervical plate on11/27/18 d/t dec B cut off saw grader strength & inc pain. Pt has nott been able to work since Jul. Pt is allowed to go on long walks and hikes Treatment Goals Patient/Caregiver Goals Return to work moy, build back up UE strength PT-OP-C Subjective Start: 12/30/18 09:09 Freq: Status: Active Protocol: Document 01/07/19 09:47 [facility] (Rec: 01/07/19 10:28 [facility] [id number]) OP-PT Subjective Patient Comments Patient Comments Pt reports compliance with HEP 2x/day PT-OP-F Manual Assessment Start: 12/30/18 09:09 Freq: Status: Active Protocol: Document 12/30/18 11:15 [facility] (Rec: 12/30/18 14:08 [facility] [id number]) Manual Assessments Soft Tissue Assessment Soft Tissue Mobility Assessment tightness along scar, UT, LS, cervical paraspinals, scalenes & SCM B PT-OP-J Posture/Palpation/Skin Start: 12/30/18 09:09 Freq: Status: Active Protocol: Document 12/30/18 11:15 [facility] (Rec: 12/30/18 12:09 [facility] [id number]) Posture Evaluation [facility]i Postural Classification System Mauri Postural Classifications Vertical/Posterior Elbow Flexion Test 0 Comments Posture Comments inc kyphosis & fwd head & shoulder PT-OP-K Range of Motion Start: 12/30/18 09:09 Freq: Status: Active Protocol: Document 12/30/18 11:15 [facility] (Rec: 12/30/18 12:09 [facility] [id number]) Cervical Spine Range of Motion Cervical Spine Active Degrees Testing Position Sitting Flexion 40 Extension 28 Rotation Left 44 Rotation Right 40 Lateral Flexion Left 22 Lateral Flexion Right 30 ROM Limitations Soft Tissue Tightness Pain PT-OP-L Special Tests Start: 12/30/18 09:09 Freq: Status: Active Protocol: Document 12/30/18 11:15 [facility] (Rec: 12/30/18 12:09 [facility] [id number]) Special Tests Cervical Spine Special Tests Shoulder Abduction Test Test Results about 110 B Alar Ligament Test Results neg Neural Special Tests- Upper Body Radial Nerve Tension Test Results neg B Median Nerve Tension Test Results Neg B Ulnar Nerve Tension Test Results neg B PT-OP-M Strength Start: 12/30/18 09:09 Freq: Status: Active Protocol: Document 12/30/18 11:15 [facility] (Rec: 12/30/18 12:09 [facility] [id number]) Shoulder Strength Shoulder Manual Muscle Testing Right Flexion 4- Good- Extension 4 Good Abduction (C5) 3+ Fair+ External Rotation 4+ Good+ Internal Rotation 4+ Good+ Left Flexion 4- Good- Extension 4 Good Abduction (C5) 3+ Fair+ External Rotation 4+ Good+ Internal Rotation 4+ Good+ Elbow/Forearm Strength Elbow and Forearm Manual Muscle Testing Right Flexion (C6) 4 Good Extension (C7) 4 Good Pronation 4- Good- Supination 4+ Good+ Left Flexion (C6) 4 Good Extension (C7) 4 Good Pronation 4- Good- Supination 4+ Good+ Wrist Strength Wrist Manual Muscle Testing Right Flexion (C7) 4+ Good+ Extension (C6) 5 Normal Ulnar Deviation 5 Normal Radial Deviation 5 Normal Left Flexion (C7) 4+ Good+ Extension (C6) 5 Normal Ulnar Deviation 5 Normal Radial Deviation 5 Normal Hand Icing Mixer/Pinch Strength Hand Strength Right Icing Mixer (lbs) 85 Left Icing Mixer (lbs) 90 PT-OP-Q Treatments Start: 12/30/18 09:09 Freq: Status: Active Protocol: Document 01/07/19 09:47 [facility] (Rec: 01/07/19 10:28 [facility] [id number]) Therapeutic Exercises Supine Exercises foam roll Supine Exercise Name flex, abd, HAbd while on & perpendicular under thoracic Reps/Minutes 15 ea Prone Exercises scaption Prone Exercise Name over tball Side bilateral Reps/Minutes 2x10 ext Prone Exercise Name over tball Side bilateral Equipment Used 2# Reps/Minutes 2x10 Habd Prone Exercise Name over tball Side bilateral Equipment Used 2# Reps/Minutes 2x15 Sitting Exercises rotation Sitting Exercise Name seated Side bilateral Reps/Minutes 6 Comments stopped d/t lower thoracic pain Standing Exercises thoracic ext Standing Exercise Name downward dog onto wall Side bilateral Reps/Minutes 45 sec hold pec stretch Standing Exercise Name corner 90/90 Side bilateral Reps/Minutes 30 sec wall posture Standing Exercise Name w/90/90 ER Side bilateral Reps/Minutes 10 Comments pillow behind head Manual Therapy Treatment Soft Tissue Mobilization scar tissue Body Location ant neck Mobilization Type Myofascial Release Intensity/Depth Superficial SOR Body Location SOR Mobilization Type Sustained Pressure Intensity/Depth Moderate PT-OP-R Modalities Start: 12/30/18 09:09 Freq: Status: Active Protocol: Document 01/07/19 10:30 [facility] (Rec: 01/07/19 10:30 [facility] [id number]) Hot Pack/Cold Pack Treatment Hot Pack Location upper thoracic Patient Position Hooklying Treatment Duration (minutes) 10 PT-OP-T Assessment and Plan Start: 12/30/18 09:09 Freq: Status: Active Protocol: Document 01/07/19 09:47 [facility] (Rec: 01/07/19 10:28 [facility] [id number]) Physical Therapy Assessment Goals ROM Experimental Preflight Mechanic Goal (LTG) Pt will have WNL cervical ROM in order to allow him to do typical daily activities like reading, driving, looking up without pian. LTG Duration 03/02/19 strenght Short Term Goal (STG) Pt will be indep with HEP STG Duration 01/30/19 Mcc Goal (LTG) Pt will have 5/5 UE strength & EFT in order to show improved stability LTG Duration 03/02/19 work Short Term Goal (STG) Pt will have average cut off saw grader strength for his age allowing him to do his job abilities ( 110 B) Mcc Goal (LTG) Pt will be able to return to work with min restrictions. LTG Duration 03/02/19 NDI Short Term Goal (STG) Pt will have score of 10/50 in order to show improved functional ability. STG Duration 01/30/19 Experimental Preflight Mechanic Goal (LTG) Pt will have score of no greater than 2/50 in order to show good functional ability LTG Duration 03/02/19 Assessment Summary Assessment Pt was fatigued by exercises, but was able to follow good form with significant cueing especially for head and neck positioning. Pt has significant fascial restriction in ant cervical spine and post upper cervical that limit his ability to get into good position Physical Therapy Plan Frequency and Duration Frequency of Treatment 2x/Week Duration of Treatment 2 months Plan of Care Start Date 12/30/18 Plan of Care End Date 03/02/19 Next Visit Focus/Plan Next Note Type Treatment Note Next Visit Plan cont to work on thoracic mobility & gentle less than 8 lb strengthening; roll & reach , thread the needle stretching
--- NOTE | 2019-01-09 13:48 | PT.OTN ---
Current Diagnoses Spinal stenosis, cervical region (01/09/19) Abnormal posture (01/09/19) Weakness (01/09/19) Physical Therapy Treatment Note PT-OP-A Visit Information Start: 12/30/18 09:09 Freq: Status: Active Protocol: Document 01/09/19 13:01 AR (Rec: 01/09/19 13:17 AR [email or web address]) Out-Patient Physical Therapy Visit Information Visit Information Visit Type Treatment Note Visit Start Time 08:15 Visit Stop Time 09:08 Total Visit Minutes 53 Visit Number 3 Number of MULTIMEDIA SERVICES MANAGER Visits 0 PT-OP-B Current Condition Start: 12/30/18 09:09 Freq: Status: Active Protocol: Document 12/30/18 11:15 [facility] (Rec: 12/30/18 12:09 [facility] [id number]) Current Condition History of Current Condition Onset Date 11/27/18 Current Complaints neck pain post surgery History of Current Condition Pt reports he had a C5-6 ant cervical discectomy w/ arthrodesis w/ant cervical plate on11/27/18 d/t dec B lead trainer strength & inc pain. Pt has nott been able to work since Jul. Pt is allowed to go on long walks and hikes Treatment Goals Patient/Caregiver Goals Return to work moy, build back up UE strength PT-OP-C Subjective Start: 12/30/18 09:09 Freq: Status: Active Protocol: Document 01/09/19 13:01 AR (Rec: 01/09/19 13:17 AR [email or web address]) OP-PT Subjective Patient Comments Patient Comments Pt reports he completed HEP after riding the recumbent bike at the gym. He said he felt sore afterward and was surprised at how challenging using a small amount of weight could be. PT-OP-F Manual Assessment Start: 12/30/18 09:09 Freq: Status: Active Protocol: Document 12/30/18 11:15 [facility] (Rec: 12/30/18 14:08 [facility] [id number]) Manual Assessments Soft Tissue Assessment Soft Tissue Mobility Assessment tightness along scar, UT, LS, cervical paraspinals, scalenes & SCM B PT-OP-J Posture/Palpation/Skin Start: 12/30/18 09:09 Freq: Status: Active Protocol: Document 12/30/18 11:15 [facility] (Rec: 12/30/18 12:09 [facility] [id number]) Posture Evaluation [facility] Postural Classification System Mauri Postural Classifications Vertical/Posterior Elbow Flexion Test 0 Comments Posture Comments inc kyphosis & fwd head & shoulder PT-OP-K Range of Motion Start: 12/30/18 09:09 Freq: Status: Active Protocol: Document 12/30/18 11:15 [facility] (Rec: 12/30/18 12:09 [facility] [id number]) Cervical Spine Range of Motion Cervical Spine Active Degrees Testing Position Sitting Flexion 40 Extension 28 Rotation Left 44 Rotation Right 40 Lateral Flexion Left 22 Lateral Flexion Right 30 ROM Limitations Soft Tissue Tightness Pain PT-OP-L Special Tests Start: 12/30/18 09:09 Freq: Status: Active Protocol: Document 12/30/18 11:15 [facility] (Rec: 12/30/18 12:09 [facility] [id number]) Special Tests Cervical Spine Special Tests Shoulder Abduction Test Test Results about 110 B Alar Ligament Test Results neg Neural Special Tests- Upper Body Radial Nerve Tension Test Results neg B Median Nerve Tension Test Results Neg B Ulnar Nerve Tension Test Results neg B PT-OP-M Strength Start: 12/30/18 09:09 Freq: Status: Active Protocol: Document 12/30/18 11:15 [facility] (Rec: 12/30/18 12:09 [facility] [id number]) Shoulder Strength Shoulder Manual Muscle Testing Right Flexion 4- Good- Extension 4 Good Abduction (C5) 3+ Fair+ External Rotation 4+ Good+ Internal Rotation 4+ Good+ Left Flexion 4- Good- Extension 4 Good Abduction (C5) 3+ Fair+ External Rotation 4+ Good+ Internal Rotation 4+ Good+ Elbow/Forearm Strength Elbow and Forearm Manual Muscle Testing Right Flexion (C6) 4 Good Extension (C7) 4 Good Pronation 4- Good- Supination 4+ Good+ Left Flexion (C6) 4 Good Extension (C7) 4 Good Pronation 4- Good- Supination 4+ Good+ Wrist Strength Wrist Manual Muscle Testing Right Flexion (C7) 4+ Good+ Extension (C6) 5 Normal Ulnar Deviation 5 Normal Radial Deviation 5 Normal Left Flexion (C7) 4+ Good+ Extension (C6) 5 Normal Ulnar Deviation 5 Normal Radial Deviation 5 Normal Hand Psychologist/Pinch Strength Hand Strength Right Psychologist (lbs) 85 Left Psychologist (lbs) 90 PT-OP-Q Treatments Start: 12/30/18 09:09 Freq: Status: Active Protocol: Document 01/09/19 13:01 AR (Rec: 01/09/19 13:17 AR [email or web address]) Therapeutic Exercises Supine Exercises foam roll Supine Exercise Name flex, abd, HAbd while on & perpendicular under thoracic Reps/Minutes 15 ea Prone Exercises scaption Prone Exercise Name over tball Side bilateral Resistance none Reps/Minutes 2x10 ext Prone Exercise Name over tball Side bilateral Equipment Used 2# Reps/Minutes 2x10 Habd Prone Exercise Name over tball Side bilateral Equipment Used 2# Reps/Minutes 2x15 Sidelying Exercises T/S rotation Sidelying Exercise Name open book Side bilateral Reps/Minutes 10 each side Comments elbow bent, rotation from T/S not shoulder Sitting Exercises Quadruped Sitting Exercise Name T/S rotation Side bilateral Reps/Minutes 10 each side Comments placing hand on back of head, focus on rotation from spine not shoulder Standing Exercises flexion c habd Standing Exercise Name flexion with resistance into habd Side bilateral Resistance level 1 Reps/Minutes 10 Comments cueing to maintain correct form and posture thoracic ext Standing Exercise Name downward dog onto wall Side bilateral Reps/Minutes 45 sec hold Manual Therapy Treatment Soft Tissue Mobilization SCM Body Location B Mobilization Type Rolling Sustained Pressure Intensity/Depth Moderate Body Position Supine scar tissue Body Location ant neck Mobilization Type Myofascial Release Intensity/Depth Superficial SOR Body Location SOR Mobilization Type Sustained Pressure Intensity/Depth Moderate PT-OP-R Modalities Start: 12/30/18 09:09 Freq: Status: Active Protocol: Document 01/09/19 13:01 AR (Rec: 01/09/19 13:17 AR [email or web address]) Hot Pack/Cold Pack Treatment Hot Pack Location upper thoracic Patient Position Supine Treatment Duration (minutes) 10 PT-OP-T Assessment and Plan Start: 12/30/18 09:09 Freq: Status: Active Protocol: Document 01/09/19 13:01 AR (Rec: 01/09/19 13:17 AR [email or web address]) Physical Therapy Assessment Goals ROM Alf Goal (LTG) Pt will have WNL cervical ROM in order to allow him to do typical daily activities like reading, driving, looking up without pian. LTG Duration 03/02/19 strenght Short Term Goal (STG) Pt will be indep with HEP STG Duration 01/30/19 Alf Goal (LTG) Pt will have 5/5 UE strength & EFT in order to show improved stability LTG Duration 03/02/19 work Short Term Goal (STG) Pt will have average lead trainer strength for his age allowing him to do his job abilities ( 110 B) Car Dryer Goal (LTG) Pt will be able to return to work with min restrictions. LTG Duration 03/02/19 NDI Short Term Goal (STG) Pt will have score of 10/50 in order to show improved functional ability. STG Duration 01/30/19 Alf Goal (LTG) Pt will have score of no greater than 2/50 in order to show good functional ability LTG Duration 03/02/19 Assessment Summary Assessment Pt felt sore quickly with exercises and was not able to maintain proper form with fatigue. Cueing with flexion/ habd exercise helped to correct scapular movement with overhead movements. Physical Therapy Plan Frequency and Duration Frequency of Treatment 2x/Week Duration of Treatment 2 months Plan of Care Start Date 12/30/18 Plan of Care End Date 03/02/19 Next Visit Focus/Plan Next Note Type Treatment Note Next Visit Plan add deep neck flexor exercises
--- NOTE | 2019-01-14 17:32 | PT.OTN ---
Current Diagnoses Spinal stenosis, cervical region (01/14/19) Abnormal posture (01/14/19) Weakness (01/14/19) Physical Therapy Treatment Note PT-OP-A Visit Information Start: 12/30/18 09:09 Freq: Status: Active Protocol: Document 01/14/19 10:43 AR (Rec: 01/14/19 11:09 AR [id number]) Out-Patient Physical Therapy Visit Information Visit Information Visit Type Treatment Note Visit Start Time 09:48 Visit Stop Time 10:42 Total Visit Minutes 54 Visit Number 10/11 Number of QUARTER SECTION IRONER Visits 0 PT-OP-B Current Condition Start: 12/30/18 09:09 Freq: Status: Active Protocol: Document 12/30/18 11:15 [facility] (Rec: 12/30/18 12:09 [facility] [id number]) Current Condition History of Current Condition Onset Date 11/27/18 Current Complaints neck pain post surgery History of Current Condition Pt reports he had a C5-6 ant cervical discectomy w/ arthrodesis w/ant cervical plate on11/27/18 d/t dec B territory manager strength & inc pain. Pt has nott been able to work since Jul. Pt is allowed to go on long walks and hikes Treatment Goals Patient/Caregiver Goals Return to work moy, build back up UE strength PT-OP-C Subjective Start: 12/30/18 09:09 Freq: Status: Active Protocol: Document 01/14/19 10:43 AR (Rec: 01/14/19 11:09 AR [id number]) OP-PT Subjective Patient Comments Patient Comments Pt reports he was not sore and felt good after his last appointment. PT-OP-F Manual Assessment Start: 12/30/18 09:09 Freq: Status: Active Protocol: Document 12/30/18 11:15 [facility] (Rec: 12/30/18 14:08 [facility] [id number]) Manual Assessments Soft Tissue Assessment Soft Tissue Mobility Assessment tightness along scar, UT, LS, cervical paraspinals, scalenes & SCM B PT-OP-J Posture/Palpation/Skin Start: 12/30/18 09:09 Freq: Status: Active Protocol: Document 12/30/18 11:15 [facility] (Rec: 12/30/18 12:09 [facility] [id number]) Posture Evaluation [facility] Postural Classification System Mauri Postural Classifications Vertical/Posterior Elbow Flexion Test 0 Comments Posture Comments inc kyphosis & fwd head & shoulder PT-OP-K Range of Motion Start: 12/30/18 09:09 Freq: Status: Active Protocol: Document 12/30/18 11:15 [facility] (Rec: 12/30/18 12:09 [facility] [id number]) Cervical Spine Range of Motion Cervical Spine Active Degrees Testing Position Sitting Flexion 40 Extension 28 Rotation Left 44 Rotation Right 40 Lateral Flexion Left 22 Lateral Flexion Right 30 ROM Limitations Soft Tissue Tightness Pain PT-OP-L Special Tests Start: 12/30/18 09:09 Freq: Status: Active Protocol: Document 12/30/18 11:15 [facility] (Rec: 12/30/18 12:09 [facility] [id number]) Special Tests Cervical Spine Special Tests Shoulder Abduction Test Test Results about 110 B Alar Ligament Test Results neg Neural Special Tests- Upper Body Radial Nerve Tension Test Results neg B Median Nerve Tension Test Results Neg B Ulnar Nerve Tension Test Results neg B PT-OP-M Strength Start: 12/30/18 09:09 Freq: Status: Active Protocol: Document 12/30/18 11:15 [facility] (Rec: 12/30/18 12:09 [facility] [id number]) Shoulder Strength Shoulder Manual Muscle Testing Right Flexion 4- Good- Extension 4 Good Abduction (C5) 3+ Fair+ External Rotation 4+ Good+ Internal Rotation 4+ Good+ Left Flexion 4- Good- Extension 4 Good Abduction (C5) 3+ Fair+ External Rotation 4+ Good+ Internal Rotation 4+ Good+ Elbow/Forearm Strength Elbow and Forearm Manual Muscle Testing Right Flexion (C6) 4 Good Extension (C7) 4 Good Pronation 4- Good- Supination 4+ Good+ Left Flexion (C6) 4 Good Extension (C7) 4 Good Pronation 4- Good- Supination 4+ Good+ Wrist Strength Wrist Manual Muscle Testing Right Flexion (C7) 4+ Good+ Extension (C6) 5 Normal Ulnar Deviation 5 Normal Radial Deviation 5 Normal Left Flexion (C7) 4+ Good+ Extension (C6) 5 Normal Ulnar Deviation 5 Normal Radial Deviation 5 Normal Hand Sod Stripper/Pinch Strength Hand Strength Right Sod Stripper (lbs) 85 Left Sod Stripper (lbs) 90 PT-OP-Q Treatments Start: 12/30/18 09:09 Freq: Status: Active Protocol: Document 01/14/19 10:43 AR (Rec: 01/14/19 11:09 AR [id number]) Therapeutic Exercises Prone Exercises scaption Prone Exercise Name over tball Side bilateral Resistance non Reps/Minutes 10 Comments cueing for proper form, pt fatigued quickly ext Prone Exercise Name over tball Side bilateral Equipment Used 2# Reps/Minutes 8 Habd Prone Exercise Name over tball Side bilateral Equipment Used 2# Reps/Minutes 10 Comments cueing for proper form, pt fatigued quickly Sitting Exercises Quadruped Sitting Exercise Name Cat/camel, child's pose Side bilateral Reps/Minutes 10, 30 second hold Comments cueing for thoracic extension w/o L/S extension Standing Exercises chin tuck Standing Exercise Name supine & standing Side bilateral Equipment Used towel for supine Reps/Minutes 2x10 Comments painful/more discomfort during supine. mirror used for cueing in standing Manual Therapy Treatment Soft Tissue Mobilization SCM Body Location B Mobilization Type Rolling Sustained Pressure Intensity/Depth Moderate Body Position Supine SOR Body Location SOR Mobilization Type Sustained Pressure Intensity/Depth Moderate Joint Mobilizations T/S Joint T3-T10 Direction PA, rotation Grade III Body Position Prone Reps/Duration 10 each joint Comments pt is very hypomobile, moreso in lower T/S PT-OP-R Modalities Start: 12/30/18 09:09 Freq: Status: Active Protocol: Document 01/14/19 10:43 AR (Rec: 01/14/19 11:09 AR [id number]) Hot Pack/Cold Pack Treatment Hot Pack Location upper thoracic & C/S Patient Position Supine Treatment Duration (minutes) 10 PT-OP-T Assessment and Plan Start: 12/30/18 09:09 Freq: Status: Active Protocol: Document 01/14/19 10:43 AR (Rec: 01/14/19 11:09 AR [id number]) Physical Therapy Assessment Goals ROM Fpc Goal (LTG) Pt will have WNL cervical ROM in order to allow him to do typical daily activities like reading, driving, looking up without pian. LTG Duration 03/02/19 strenght Short Term Goal (STG) Pt will be indep with HEP STG Duration 01/30/19 Traffic Enumerator Goal (LTG) Pt will have 5/5 UE strength & EFT in order to show improved stability LTG Duration 03/02/19 work Short Term Goal (STG) Pt will have average territory manager strength for his age allowing him to do his job abilities ( 110 B) Traffic Enumerator Goal (LTG) Pt will be able to return to work with min restrictions. LTG Duration 03/02/19 NDI Short Term Goal (STG) Pt will have score of 10/50 in order to show improved functional ability. STG Duration 01/30/19 Fpc Goal (LTG) Pt will have score of no greater than 2/50 in order to show good functional ability LTG Duration 03/02/19 Assessment Summary Assessment Pt fatigued quickly during prone on tball exercises when proper form was achieved. Maintaining spine and scaulae in proper form is still very challenging for patient and he required cueing through all exercises. Inc throacic kyphosis and hypomobility still contributing to C/S and shoulder pain. Physical Therapy Plan Frequency and Duration Frequency of Treatment 2x/Week Duration of Treatment 2 months Plan of Care Start Date 12/30/18 Plan of Care End Date 03/02/19 Next Visit Focus/Plan Next Note Type Treatment Note Next Visit Plan continue to work on T/S mobility and scapular stability during strengthening exercises.
--- NOTE | 2019-01-21 16:11 | PT.OTN ---
Current Diagnoses Spinal stenosis, cervical region (01/21/19) Abnormal posture (01/21/19) Weakness (01/21/19) Physical Therapy Treatment Note PT-OP-A Visit Information Start: 12/30/18 09:09 Freq: Status: Active Protocol: Document 01/21/19 09:53 AR (Rec: 01/21/19 10:06 AR [email or web address]) Out-Patient Physical Therapy Visit Information Visit Information Visit Type Treatment Note Visit Start Time 09:04 Visit Stop Time 09:55 Total Visit Minutes 51 Visit Number 11/10 Number of TELEPHONE SUPERVISOR Visits 0 PT-OP-B Current Condition Start: 12/30/18 09:09 Freq: Status: Active Protocol: Document 12/30/18 11:15 [facility] (Rec: 12/30/18 12:09 [facility] [id number]) Current Condition History of Current Condition Onset Date 11/27/18 Current Complaints neck pain post surgery History of Current Condition Pt reports he had a C5-6 ant cervical discectomy w/ arthrodesis w/ant cervical plate on11/27/18 d/t dec B tibco developer strength & inc pain. Pt has nott been able to work since Jul. Pt is allowed to go on long walks and hikes Treatment Goals Patient/Caregiver Goals Return to work moy, build back up UE strength PT-OP-C Subjective Start: 12/30/18 09:09 Freq: Status: Active Protocol: Document 01/21/19 09:53 AR (Rec: 01/21/19 10:06 AR [email or web address]) OP-PT Subjective Patient Comments Patient Comments Pt reported feel well today but is still suprised with how little weight he can lift during scapular strengthening exercises at home. PT-OP-F Manual Assessment Start: 12/30/18 09:09 Freq: Status: Active Protocol: Document 12/30/18 11:15 [facility] (Rec: 12/30/18 14:08 [facility] [id number]) Manual Assessments Soft Tissue Assessment Soft Tissue Mobility Assessment tightness along scar, UT, LS, cervical paraspinals, scalenes & SCM B PT-OP-J Posture/Palpation/Skin Start: 12/30/18 09:09 Freq: Status: Active Protocol: Document 12/30/18 11:15 [facility] (Rec: 12/30/18 12:09 [facility] [id number]) Posture Evaluation [facility] Postural Classification System [facility] Postural Classifications Vertical/Posterior Elbow Flexion Test 0 Comments Posture Comments inc kyphosis & fwd head & shoulder PT-OP-K Range of Motion Start: 12/30/18 09:09 Freq: Status: Active Protocol: Document 12/30/18 11:15 [facility] (Rec: 12/30/18 12:09 [facility] [id number]) Cervical Spine Range of Motion Cervical Spine Active Degrees Testing Position Sitting Flexion 40 Extension 28 Rotation Left 44 Rotation Right 40 Lateral Flexion Left 22 Lateral Flexion Right 30 ROM Limitations Soft Tissue Tightness Pain PT-OP-L Special Tests Start: 12/30/18 09:09 Freq: Status: Active Protocol: Document 12/30/18 11:15 [facility] (Rec: 12/30/18 12:09 [facility] [id number]) Special Tests Cervical Spine Special Tests Shoulder Abduction Test Test Results about 110 B Alar Ligament Test Results neg Neural Special Tests- Upper Body Radial Nerve Tension Test Results neg B Median Nerve Tension Test Results Neg B Ulnar Nerve Tension Test Results neg B PT-OP-M Strength Start: 12/30/18 09:09 Freq: Status: Active Protocol: Document 12/30/18 11:15 [facility] (Rec: 12/30/18 12:09 [facility] [id number]) Shoulder Strength Shoulder Manual Muscle Testing Right Flexion 4- Good- Extension 4 Good Abduction (C5) 3+ Fair+ External Rotation 4+ Good+ Internal Rotation 4+ Good+ Left Flexion 4- Good- Extension 4 Good Abduction (C5) 3+ Fair+ External Rotation 4+ Good+ Internal Rotation 4+ Good+ Elbow/Forearm Strength Elbow and Forearm Manual Muscle Testing Right Flexion (C6) 4 Good Extension (C7) 4 Good Pronation 4- Good- Supination 4+ Good+ Left Flexion (C6) 4 Good Extension (C7) 4 Good Pronation 4- Good- Supination 4+ Good+ Wrist Strength Wrist Manual Muscle Testing Right Flexion (C7) 4+ Good+ Extension (C6) 5 Normal Ulnar Deviation 5 Normal Radial Deviation 5 Normal Left Flexion (C7) 4+ Good+ Extension (C6) 5 Normal Ulnar Deviation 5 Normal Radial Deviation 5 Normal Hand Multiple Punch Press Operator/Pinch Strength Hand Strength Right Multiple Punch Press Operator (lbs) 85 Left Multiple Punch Press Operator (lbs) 90 PT-OP-Q Treatments Start: 12/30/18 09:09 Freq: Status: Active Protocol: Document 01/21/19 09:53 AR (Rec: 01/21/19 10:06 AR [email or web address]) Therapeutic Exercises Supine Exercises foam roll Supine Exercise Name flex, abd, HAbd Reps/Minutes 15 ea Comments pt reported stiffnexx in T/S during exercise Prone Exercises 90/90 ER Prone Exercise Name over tball Side bilateral Resistance none Reps/Minutes 10 reps Comments pt able to maintain proper form with minimal cueing scaption Prone Exercise Name over tball Side bilateral Resistance none Reps/Minutes 10 Comments cueing for proper form, pt fatigued quickly ext Prone Exercise Name over tball Side bilateral Equipment Used 2# Reps/Minutes 8 Habd Prone Exercise Name over tball Side bilateral Equipment Used 2# Reps/Minutes 10 Comments cueing for proper form, pt fatigued quickly Sidelying Exercises T/S rotation Sidelying Exercise Name open book Side bilateral Reps/Minutes 10 each side Comments elbow bent, rotation from T/S not shoulder Sitting Exercises Quadruped Sitting Exercise Name Bird Dog Side right Reps/Minutes 2 reps Comments RUE, LLE only. stopped d/t pain in wrist/hand with weight on L hand Standing Exercises chin tuck Standing Exercise Name standing Equipment Used mirror Reps/Minutes 10 reps, 10 sec holds Manual Therapy Treatment Soft Tissue Mobilization SCM Body Location B Mobilization Type Rolling Sustained Pressure Intensity/Depth Moderate Body Position Supine SOR Body Location SOR Mobilization Type Sustained Pressure Intensity/Depth Moderate Joint Mobilizations 1st rib Joint L first rib Direction inferior Grade III Body Position Supine Comments hypomobility noted prior to mobilization PT-OP-R Modalities Start: 12/30/18 09:09 Freq: Status: Active Protocol: Document 01/21/19 09:53 AR (Rec: 01/21/19 10:06 AR [email or web address]) Hot Pack/Cold Pack Treatment Hot Pack Location upper thoracic & C/S Patient Position Supine Treatment Duration (minutes) 10 PT-OP-T Assessment and Plan Start: 12/30/18 09:09 Freq: Status: Active Protocol: Document 01/21/19 09:53 AR (Rec: 01/21/19 10:06 AR [email or web address]) Physical Therapy Assessment Goals ROM Public Services Assistant Goal (LTG) Pt will have WNL cervical ROM in order to allow him to do typical daily activities like reading, driving, looking up without pian. LTG Duration 03/02/19 strenght Short Term Goal (STG) Pt will be indep with HEP STG Duration 01/30/19 Public Services Assistant Goal (LTG) Pt will have 5/5 UE strength & EFT in order to show improved stability LTG Duration 03/02/19 work Short Term Goal (STG) Pt will have average tibco developer strength for his age allowing him to do his job abilities ( 110 B) Correction Goal (LTG) Pt will be able to return to work with min restrictions. LTG Duration 03/02/19 NDI Short Term Goal (STG) Pt will have score of 10/50 in order to show improved functional ability. STG Duration 01/30/19 Correction Goal (LTG) Pt will have score of no greater than 2/50 in order to show good functional ability LTG Duration 03/02/19 Assessment Summary Assessment Pt's shoulder ROM during foam roll exercises has improved and pt demonstrates better form with less cueing for chin tucks. Pt was able to maintain scapular stability with less C/S muscular activation which, although he still fatigued quickly. Pt was able to correct postural alignment in quadruped with cueing, but was unable to maintain pelvic stability during leg extension. Pt will benefit from continued scapular stability and postural exercises. Physical Therapy Plan Frequency and Duration Frequency of Treatment 2x/Week Duration of Treatment 2 months Plan of Care Start Date 12/30/18 Plan of Care End Date 03/02/19 Next Visit Focus/Plan Next Note Type Treatment Note Next Visit Plan progress weight with scapular exercises as appropriate.
--- NOTE | 2019-01-23 18:13 | PT.OTN ---
Current Diagnoses Spinal stenosis, cervical region (01/23/19) Abnormal posture (01/23/19) Weakness (01/23/19) Physical Therapy Treatment Note PT-OP-A Visit Information Start: 12/30/18 09:09 Freq: Status: Active Protocol: Document 01/23/19 13:00 AR (Rec: 01/23/19 13:19 AR [email or web address]) Out-Patient Physical Therapy Visit Information Visit Information Visit Type Treatment Note Visit Start Time 08:20 Visit Stop Time 09:10 Total Visit Minutes 50 Visit Number 12/11 Number of JET PILOT Visits 0 PT-OP-B Current Condition Start: 12/30/18 09:09 Freq: Status: Active Protocol: Document 12/30/18 11:15 [facility] (Rec: 12/30/18 12:09 [facility] [id number]) Current Condition History of Current Condition Onset Date 11/27/18 Current Complaints neck pain post surgery History of Current Condition Pt reports he had a C5-6 ant cervical discectomy w/ arthrodesis w/ant cervical plate on11/27/18 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 Pt has nott been able to work since Jul. Pt is allowed to go on long walks and hikes Treatment Goals Patient/Caregiver Goals Return to work moy, build back up UE strength PT-OP-C Subjective Start: 12/30/18 09:09 Freq: Status: Active Protocol: Document 01/23/19 13:00 AR (Rec: 01/23/19 13:19 AR [email or web address]) OP-PT Subjective Patient Comments Patient Comments Pt reports he is feeling well today. He is compliant with HEP. PT-OP-F Manual Assessment Start: 12/30/18 09:09 Freq: Status: Active Protocol: Document 12/30/18 11:15 [facility] (Rec: 12/30/18 14:08 [facility] [id number]) Manual Assessments Soft Tissue Assessment Soft Tissue Mobility Assessment tightness along scar, UT, LS, cervical paraspinals, scalenes & SCM B PT-OP-J Posture/Palpation/Skin Start: 12/30/18 09:09 Freq: Status: Active Protocol: Document 12/30/18 11:15 [facility] (Rec: 12/30/18 12:09 [facility] [id number]) Posture Evaluation Mauri Postural Classification System Mauri Postural Classifications Vertical/Posterior Elbow Flexion Test 0 Comments Posture Comments inc kyphosis & fwd head & shoulder PT-OP-K Range of Motion Start: 12/30/18 09:09 Freq: Status: Active Protocol: Document 12/30/18 11:15 [facility] (Rec: 12/30/18 12:09 [facility] [id number]) Cervical Spine Range of Motion Cervical Spine Active Degrees Testing Position Sitting Flexion 40 Extension 28 Rotation Left 44 Rotation Right 40 Lateral Flexion Left 22 Lateral Flexion Right 30 ROM Limitations Soft Tissue Tightness Pain PT-OP-L Special Tests Start: 12/30/18 09:09 Freq: Status: Active Protocol: Document 12/30/18 11:15 [facility] (Rec: 12/30/18 12:09 [facility] [id number]) Special Tests Cervical Spine Special Tests Shoulder Abduction Test Test Results about 110 B Alar Ligament Test Results neg Neural Special Tests- Upper Body Radial Nerve Tension Test Results neg B Median Nerve Tension Test Results Neg B Ulnar Nerve Tension Test Results neg B PT-OP-M Strength Start: 12/30/18 09:09 Freq: Status: Active Protocol: Document 12/30/18 11:15 [facility] (Rec: 12/30/18 12:09 [facility] [id number]) Shoulder Strength Shoulder Manual Muscle Testing Right Flexion 4- Good- Extension 4 Good Abduction (C5) 3+ Fair+ External Rotation 4+ Good+ Internal Rotation 4+ Good+ Left Flexion 4- Good- Extension 4 Good Abduction (C5) 3+ Fair+ External Rotation 4+ Good+ Internal Rotation 4+ Good+ Elbow/Forearm Strength Elbow and Forearm Manual Muscle Testing Right Flexion (C6) 4 Good Extension (C7) 4 Good Pronation 4- Good- Supination 4+ Good+ Left Flexion (C6) 4 Good Extension (C7) 4 Good Pronation 4- Good- Supination 4+ Good+ Wrist Strength Wrist Manual Muscle Testing Right Flexion (C7) 4+ Good+ Extension (C6) 5 Normal Ulnar Deviation 5 Normal Radial Deviation 5 Normal Left Flexion (C7) 4+ Good+ Extension (C6) 5 Normal Ulnar Deviation 5 Normal Radial Deviation 5 Normal Hand Suture Gauger/Pinch Strength Hand Strength Right Suture Gauger (lbs) 85 Left Suture Gauger (lbs) 90 PT-OP-Q Treatments Start: 12/30/18 09:09 Freq: Status: Active Protocol: Document 01/23/19 13:00 AR (Rec: 01/23/19 13:19 AR [email or web address]) Manual Therapy Treatment Soft Tissue Mobilization Pectorals Body Location pectorals Mobilization Type Sustained Pressure Intensity/Depth Moderate Body Position Supine Comments with shoulder flexion & habd. minimal resitrictions noted T/S paraspinals Body Location T/S paraspinals Mobilization Type Rolling Sustained Pressure Intensity/Depth Moderate Body Position Prone UT, scalenes Body Location UT, scalenes Mobilization Type Myofascial Release Strumming Sustained Pressure Intensity/Depth Moderate Body Position Supine Joint Mobilizations T/S w movement Joint general thoracic Direction PA, rotation Grade III Body Position Prone Reps/Duration 10 reps Comments in open book (rot), cat/camel (PAs) T/S Joint T3-T10 Direction PA, rotation Grade III Body Position Prone Reps/Duration 15 each joint Comments pt reported feeling sore after Manual Techniques shoulder PNF Type rhythmic initiation, holds Body Location B shoulders Body Position Sidelying Reps/Duration 5 reps each side Comments & manual resistance in prone on elbows PT-OP-R Modalities Start: 12/30/18 09:09 Freq: Status: Active Protocol: Document 01/23/19 13:00 AR (Rec: 01/23/19 13:19 AR [email or web address]) Hot Pack/Cold Pack Treatment Hot Pack Location upper thoracic & C/S Patient Position Supine Treatment Duration (minutes) 10 PT-OP-T Assessment and Plan Start: 12/30/18 09:09 Freq: Status: Active Protocol: Document 01/23/19 13:00 AR (Rec: 01/23/19 13:19 AR [email or web address]) Physical Therapy Assessment Goals ROM Seed Service Advisor Goal (LTG) Pt will have WNL cervical ROM in order to allow him to do typical daily activities like reading, driving, looking up without pian. LTG Duration 03/02/19 strenght Short Term Goal (STG) Pt will be indep with HEP STG Duration 01/30/19 Group Home Goal (LTG) Pt will have 5/5 UE strength & EFT in order to show improved stability LTG Duration 03/02/19 work Short Term Goal (STG) Pt will have average certified real estate appraiser strength for his age allowing him to do his job abilities ( 110 B) Group Home Goal (LTG) Pt will be able to return to work with min restrictions. LTG Duration 03/02/19 NDI Short Term Goal (STG) Pt will have score of 10/50 in order to show improved functional ability. STG Duration 01/30/19 Seed Service Advisor Goal (LTG) Pt will have score of no greater than 2/50 in order to show good functional ability LTG Duration 03/02/19 Assessment Summary Assessment Pt presents with less myofascial restrictions in anterior chest and cervical regions, so limited mobility likely d/t joint hypomobility. Treatment focused on mobilizations with movement and pt was able to gain more T /S ROM after manual therapy. T /S rotation still limited by pain, which was felt before an end feel when overpressure was applied. Fatigue in scapular girdle continues to be problematic for patient and futher treatment to focus on scapular stability. Physical Therapy Plan Frequency and Duration Frequency of Treatment 2x/Week Duration of Treatment 2 months Plan of Care Start Date 12/30/18 Plan of Care End Date 03/02/19 Next Visit Focus/Plan Next Note Type Treatment Note Next Visit Plan incorporate more manual therapy with functional movement if pt tolerated. progress scapular stability exercises
--- NOTE | 2019-01-28 15:04 | PT.OTN ---
Current Diagnoses Spinal stenosis, cervical region (01/28/19) Abnormal posture (01/28/19) Weakness (01/28/19) Physical Therapy Treatment Note PT-OP-A Visit Information Start: 12/30/18 09:09 Freq: Status: Active Protocol: Document 01/28/19 10:54 AR (Rec: 01/28/19 11:13 AR [email or web address]) Out-Patient Physical Therapy Visit Information Visit Information Visit Type Treatment Note Visit Start Time 09:05 Visit Stop Time 10:00 Total Visit Minutes 55 Visit Number 12/11 Number of SOFTWARE SUPPORT REPRESENTATIVE Visits 0 PT-OP-B Current Condition Start: 12/30/18 09:09 Freq: Status: Active Protocol: Document 12/30/18 11:15 [facility] (Rec: 12/30/18 12:09 [facility] [id number]) Current Condition History of Current Condition Onset Date 11/27/18 Current Complaints neck pain post surgery History of Current Condition Pt reports he had a C5-6 ant cervical discectomy w/ arthrodesis w/ant cervical plate on11/27/18 d/t dec B babbitter strength & inc pain. Pt has nott been able to work since Jul. Pt is allowed to go on long walks and hikes Treatment Goals Patient/Caregiver Goals Return to work moy, build back up UE strength PT-OP-C Subjective Start: 12/30/18 09:09 Freq: Status: Active Protocol: Document 01/28/19 10:54 AR (Rec: 01/28/19 11:13 AR [email or web address]) OP-PT Subjective Patient Comments Patient Comments Pt reports he over did it this weekend with yard work, but he was able to shovel light loads of bark for 30 minutes before needing to take a break. Pt reported pain in his thumb was very bad today. PT-OP-F Manual Assessment Start: 12/30/18 09:09 Freq: Status: Active Protocol: Document 12/30/18 11:15 [facility] (Rec: 12/30/18 14:08 [facility] [id number]) Manual Assessments Soft Tissue Assessment Soft Tissue Mobility Assessment tightness along scar, UT, LS, cervical paraspinals, scalenes & SCM B PT-OP-J Posture/Palpation/Skin Start: 12/30/18 09:09 Freq: Status: Active Protocol: Document 12/30/18 11:15 [facility] (Rec: 12/30/18 12:09 [facility] [id number]) Posture Evaluation Mauri Postural Classification System Mauri Postural Classifications Vertical/Posterior Elbow Flexion Test 0 Comments Posture Comments inc kyphosis & fwd head & shoulder PT-OP-K Range of Motion Start: 12/30/18 09:09 Freq: Status: Active Protocol: Document 12/30/18 11:15 [facility] (Rec: 12/30/18 12:09 [facility] [id number]) Cervical Spine Range of Motion Cervical Spine Active Degrees Testing Position Sitting Flexion 40 Extension 28 Rotation Left 44 Rotation Right 40 Lateral Flexion Left 22 Lateral Flexion Right 30 ROM Limitations Soft Tissue Tightness Pain PT-OP-L Special Tests Start: 12/30/18 09:09 Freq: Status: Active Protocol: Document 12/30/18 11:15 [facility] (Rec: 12/30/18 12:09 [facility] [id number]) Special Tests Cervical Spine Special Tests Shoulder Abduction Test Test Results about 110 B Alar Ligament Test Results neg Neural Special Tests- Upper Body Radial Nerve Tension Test Results neg B Median Nerve Tension Test Results Neg B Ulnar Nerve Tension Test Results neg B PT-OP-M Strength Start: 12/30/18 09:09 Freq: Status: Active Protocol: Document 12/30/18 11:15 [facility] (Rec: 12/30/18 12:09 [facility] [id number]) Shoulder Strength Shoulder Manual Muscle Testing Right Flexion 4- Good- Extension 4 Good Abduction (C5) 3+ Fair+ External Rotation 4+ Good+ Internal Rotation 4+ Good+ Left Flexion 4- Good- Extension 4 Good Abduction (C5) 3+ Fair+ External Rotation 4+ Good+ Internal Rotation 4+ Good+ Elbow/Forearm Strength Elbow and Forearm Manual Muscle Testing Right Flexion (C6) 4 Good Extension (C7) 4 Good Pronation 4- Good- Supination 4+ Good+ Left Flexion (C6) 4 Good Extension (C7) 4 Good Pronation 4- Good- Supination 4+ Good+ Wrist Strength Wrist Manual Muscle Testing Right Flexion (C7) 4+ Good+ Extension (C6) 5 Normal Ulnar Deviation 5 Normal Radial Deviation 5 Normal Left Flexion (C7) 4+ Good+ Extension (C6) 5 Normal Ulnar Deviation 5 Normal Radial Deviation 5 Normal Hand Margin Analyst/Pinch Strength Hand Strength Right Margin Analyst (lbs) 85 Left Margin Analyst (lbs) 90 PT-OP-Q Treatments Start: 12/30/18 09:09 Freq: Status: Active Protocol: Document 01/28/19 10:54 AR (Rec: 01/28/19 11:13 AR [email or web address]) Therapeutic Exercises Supine Exercises foam roll Supine Exercise Name flex, abd, HAbd Reps/Minutes 15 ea Comments pt reported pain in L/S during exercise Prone Exercises 90/90 ER Prone Exercise Name over tball Side bilateral Resistance none Reps/Minutes 10 reps Comments pt able to maintain proper form with minimal cueing ext Prone Exercise Name over tball Side bilateral Equipment Used 3# Reps/Minutes 10 Habd Prone Exercise Name over tball Side bilateral Equipment Used 3# Reps/Minutes 15 Comments cueing for L/S and core engagement, pt's tolerance has improved Standing Exercises serratus punches Standing Exercise Name serratus punches Side bilateral Resistance level 1 Reps/Minutes 10 reps each Comments more challenging on L, unable to perform w/o scapular elevation Manual Therapy Treatment Soft Tissue Mobilization T/S paraspinals Body Location T/S paraspinals Mobilization Type Rolling Sustained Pressure Intensity/Depth Moderate Body Position Sitting UT, scalenes Body Location UT, scalenes Mobilization Type Myofascial Release Strumming Sustained Pressure Intensity/Depth Moderate Body Position Supine Joint Mobilizations Ant Ribs Joint L ribs 2-4 Direction posterolateral Grade III Body Position Supine Comments with deep breathing and habd 1st rib Joint R first rib Direction inferior Grade III Body Position Supine T/S Joint T3-4 Direction PA Body Position Supine Comments pistol babbitter, with chin tucks Manual Techniques 1st rib MET Type contract relax Body Location R 1st rib Body Position Sitting Comments pt able to achieve about 40 deg C/S sidebending w/o pain. pt reported dizziness after PT-OP-R Modalities Start: 12/30/18 09:09 Freq: Status: Active Protocol: Document 01/28/19 10:54 AR (Rec: 01/28/19 11:13 AR [email or web address]) Hot Pack/Cold Pack Treatment Hot Pack Location upper thoracic & C/S Patient Position Supine Treatment Duration (minutes) 10 PT-OP-T Assessment and Plan Start: 12/30/18 09:09 Freq: Status: Active Protocol: Document 01/28/19 10:54 AR (Rec: 01/28/19 11:13 AR [email or web address]) Physical Therapy Assessment Goals ROM Residential Goal (LTG) Pt will have WNL cervical ROM in order to allow him to do typical daily activities like reading, driving, looking up without pian. LTG Duration 03/02/19 strenght Short Term Goal (STG) Pt will be indep with HEP STG Duration 01/30/19 Ladies' Locker Room Attendant Goal (LTG) Pt will have 5/5 UE strength & EFT in order to show improved stability LTG Duration 03/02/19 work Short Term Goal (STG) Pt will have average babbitter strength for his age allowing him to do his job abilities ( 110 B) Residential Goal (LTG) Pt will be able to return to work with min restrictions. LTG Duration 03/02/19 NDI Short Term Goal (STG) Pt will have score of 10/50 in order to show improved functional ability. STG Duration 01/30/19 Residential Goal (LTG) Pt will have score of no greater than 2/50 in order to show good functional ability LTG Duration 03/02/19 Assessment Summary Assessment Pt was able to progress scapular stability exercises without much fatigue. Pt was cued for L/S posture and core stability to help address reports of recent LBP. Anterior chest muscular restrictions, rib and T/S hypomobility may be contributing to pt's forward head posture. Pt's BP checked and was WNL after pt's reports of dizzness. Dizziness cleared quickly and pt was given water. Physical Therapy Plan Frequency and Duration Frequency of Treatment 2x/Week Duration of Treatment 2 months Plan of Care Start Date 12/30/18 Plan of Care End Date 03/02/19 Next Visit Focus/Plan Next Note Type Treatment Note Next Visit Plan T/S ext mobilization, progress scapular stability
--- NOTE | 2019-02-04 15:01 | PT.OTN ---
Current Diagnoses Spinal stenosis, cervical region (02/04/19) Abnormal posture (02/04/19) Weakness (02/04/19) Physical Therapy Treatment Note PT-OP-A Visit Information Start: 12/30/18 09:09 Freq: Status: Active Protocol: Document 02/04/19 10:06 AR (Rec: 02/04/19 10:24 AR [email or web address]) Out-Patient Physical Therapy Visit Information Visit Information Visit Type Treatment Note Visit Start Time 09:02 Visit Stop Time 09:55 Total Visit Minutes 53 Visit Number 02/10 Number of CORDAGE SALES REPRESENTATIVE Visits 0 PT-OP-B Current Condition Start: 12/30/18 09:09 Freq: Status: Active Protocol: Document 12/30/18 11:15 [facility] (Rec: 12/30/18 12:09 [facility] [id number]) Current Condition History of Current Condition Onset Date 11/27/18 Current Complaints neck pain post surgery History of Current Condition Pt reports he had a C5-6 ant cervical discectomy w/ arthrodesis w/ant cervical plate on11/27/18 d/t dec B powder loader strength & inc pain. Pt has nott been able to work since Jul. Pt is allowed to go on long walks and hikes Treatment Goals Patient/Caregiver Goals Return to work moy, build back up UE strength PT-OP-C Subjective Start: 12/30/18 09:09 Freq: Status: Active Protocol: Document 02/04/19 10:06 AR (Rec: 02/04/19 10:24 AR [email or web address]) OP-PT Subjective Patient Comments Patient Comments Pt reports he feels well today . He had a doctor's visit recently and was cleared to go back tot yoga, kettle ohara lifting, and biking. He is to avoid jerky lifting motions with kettle bells. Doctor encourgaged him to continue to progress strength and was happy with his ROM gains. Doctor would like him to come to therapy for 6 more visits. PT-OP-F Manual Assessment Start: 12/30/18 09:09 Freq: Status: Active Protocol: Document 12/30/18 11:15 [facility] (Rec: 12/30/18 14:08 [facility] [id number]) Manual Assessments Soft Tissue Assessment Soft Tissue Mobility Assessment tightness along scar, UT, LS, cervical paraspinals, scalenes & SCM B PT-OP-J Posture/Palpation/Skin Start: 12/30/18 09:09 Freq: Status: Active Protocol: Document 12/30/18 11:15 [facility] (Rec: 12/30/18 12:09 [facility] [id number]) Posture Evaluation Mauri Postural Classification System Mauri Postural Classifications Vertical/Posterior Elbow Flexion Test 0 Comments Posture Comments inc kyphosis & fwd head & shoulder PT-OP-K Range of Motion Start: 12/30/18 09:09 Freq: Status: Active Protocol: Document 12/30/18 11:15 [facility] (Rec: 12/30/18 12:09 [facility] [id number]) Cervical Spine Range of Motion Cervical Spine Active Degrees Testing Position Sitting Flexion 40 Extension 28 Rotation Left 44 Rotation Right 40 Lateral Flexion Left 22 Lateral Flexion Right 30 ROM Limitations Soft Tissue Tightness Pain PT-OP-L Special Tests Start: 12/30/18 09:09 Freq: Status: Active Protocol: Document 12/30/18 11:15 [facility] (Rec: 12/30/18 12:09 [facility] [id number]) Special Tests Cervical Spine Special Tests Shoulder Abduction Test Test Results about 110 B Alar Ligament Test Results neg Neural Special Tests- Upper Body Radial Nerve Tension Test Results neg B Median Nerve Tension Test Results Neg B Ulnar Nerve Tension Test Results neg B PT-OP-M Strength Start: 12/30/18 09:09 Freq: Status: Active Protocol: Document 12/30/18 11:15 [facility] (Rec: 12/30/18 12:09 [facility] [id number]) Shoulder Strength Shoulder Manual Muscle Testing Right Flexion 4- Good- Extension 4 Good Abduction (C5) 3+ Fair+ External Rotation 4+ Good+ Internal Rotation 4+ Good+ Left Flexion 4- Good- Extension 4 Good Abduction (C5) 3+ Fair+ External Rotation 4+ Good+ Internal Rotation 4+ Good+ Elbow/Forearm Strength Elbow and Forearm Manual Muscle Testing Right Flexion (C6) 4 Good Extension (C7) 4 Good Pronation 4- Good- Supination 4+ Good+ Left Flexion (C6) 4 Good Extension (C7) 4 Good Pronation 4- Good- Supination 4+ Good+ Wrist Strength Wrist Manual Muscle Testing Right Flexion (C7) 4+ Good+ Extension (C6) 5 Normal Ulnar Deviation 5 Normal Radial Deviation 5 Normal Left Flexion (C7) 4+ Good+ Extension (C6) 5 Normal Ulnar Deviation 5 Normal Radial Deviation 5 Normal Hand Gold Leaf Laborer/Pinch Strength Hand Strength Right Gold Leaf Laborer (lbs) 85 Left Gold Leaf Laborer (lbs) 90 PT-OP-Q Treatments Start: 12/30/18 09:09 Freq: Status: Active Protocol: Document 02/04/19 10:06 AR (Rec: 02/04/19 10:24 AR [email or web address]) Therapeutic Exercises Supine Exercises chin tucks and hold Supine Exercise Name chin tucks w hold Equipment Used manual support, moderate Reps/Minutes 4x10 sec holds Comments pt fatigued quickly. cueing to maintain chin tuck foam roll Supine Exercise Name flex, abd, HAbd Reps/Minutes 15 ea Prone Exercises Habd + 90/90 ER Prone Exercise Name over tball Side bilateral Equipment Used 3.3# balls Reps/Minutes 10 reps 90/90 ER Prone Exercise Name over tball Side bilateral Resistance 3.3# balls Reps/Minutes 10 reps Comments pt able to maintain proper form with min cueing ext Prone Exercise Name over tball Side bilateral Equipment Used 3# Reps/Minutes 10 Habd Prone Exercise Name over tball Side bilateral Equipment Used 3.3# balls Reps/Minutes 15 Sitting Exercises AROM cervical rotation Sitting Exercise Name rotation Side bilateral Reps/Minutes 10 reps each side Comments pt cued for fluid motion cervical sidebending stretch Sitting Exercise Name SB Side bilateral Reps/Minutes 2x30 sec holds wrist extension Sitting Exercise Name wrist ext at 90 deg elbow flex Side bilateral Equipment Used 2.2# balls Reps/Minutes 2x8 reps Comments pt fatigued quickly Manual Therapy Treatment Soft Tissue Mobilization T/S paraspinals Body Location T/S paraspinals Mobilization Type Rolling Sustained Pressure Intensity/Depth Moderate Body Position Prone Joint Mobilizations T/S w movement Joint general thoracic Direction PA Grade IV Body Position Sitting Comments with T/S ext, contract/relax PT-OP-R Modalities Start: 12/30/18 09:09 Freq: Status: Active Protocol: Document 02/04/19 10:06 AR (Rec: 02/04/19 10:24 AR [email or web address]) Hot Pack/Cold Pack Treatment Hot Pack Location upper thoracic & C/S Patient Position Supine Treatment Duration (minutes) 10 PT-OP-T Assessment and Plan Start: 12/30/18 09:09 Freq: Status: Active Protocol: Document 02/04/19 10:06 AR (Rec: 02/04/19 10:24 AR [email or web address]) Physical Therapy Assessment Goals ROM Nursing Home Goal (LTG) Pt will have WNL cervical ROM in order to allow him to do typical daily activities like reading, driving, looking up without pian. LTG Duration 03/02/19 strenght Short Term Goal (STG) Pt will be indep with HEP STG Duration goal met Gas Welding Machine Operator Goal (LTG) Pt will have 5/5 UE strength & EFT in order to show improved stability LTG Duration 03/02/19 work Short Term Goal (STG) Pt will have average powder loader strength for his age allowing him to do his job abilities ( 110 B) Nursing Home Goal (LTG) Pt will be able to return to work with min restrictions. LTG Duration 03/02/19 NDI Short Term Goal (STG) Pt will have score of 10/50 in order to show improved functional ability. STG Duration 01/30/19 Gas Welding Machine Operator Goal (LTG) Pt will have score of no greater than 2/50 in order to show good functional ability LTG Duration 03/02/19 Assessment Summary Assessment Pt was able to tolerate inc in resistance and maintain proper scapular positioning during exercises today. Gold Leaf Laborer strengthening incorporated into scapular exercises with use of theraballs. Pt was challenged with wrist extension exercises and further therapy to cont to progress forearm and powder loader strength. Physical Therapy Plan Frequency and Duration Frequency of Treatment 2x/Week Duration of Treatment 2 months Plan of Care Start Date 12/30/18 Plan of Care End Date 03/02/19 Next Visit Focus/Plan Next Note Type Treatment Note Next Visit Plan powder loader strength, wrist flexor/ extensor strength. army wall crawls, wall slides w iso protraction
--- NOTE | 2019-02-06 10:31 | PT.OTN ---
Current Diagnoses Spinal stenosis, cervical region (02/06/19) Abnormal posture (02/06/19) Weakness (02/06/19) Physical Therapy Treatment Note PT-OP-A Visit Information Start: 12/30/18 09:09 Freq: Status: Active Protocol: Document 02/06/19 09:52 AR (Rec: 02/06/19 10:13 AR [email or web address]) Out-Patient Physical Therapy Visit Information Visit Information Visit Type Treatment Note Visit Start Time 09:03 Visit Stop Time 09:43 Total Visit Minutes 40 Visit Number 03/13 Number of LAP MACHINE OPERATOR Visits 0 PT-OP-B Current Condition Start: 12/30/18 09:09 Freq: Status: Active Protocol: Document 12/30/18 11:15 [facility] (Rec: 12/30/18 12:09 [facility] [id number]) Current Condition History of Current Condition Onset Date 11/27/18 Current Complaints neck pain post surgery History of Current Condition Pt reports he had a C5-6 ant cervical discectomy w/ arthrodesis w/ant cervical plate on11/27/18 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 Pt has nott been able to work since Jul. Pt is allowed to go on long walks and hikes Treatment Goals Patient/Caregiver Goals Return to work moy, build back up UE strength PT-OP-C Subjective Start: 12/30/18 09:09 Freq: Status: Active Protocol: Document 02/06/19 09:52 AR (Rec: 02/06/19 10:13 AR [email or web address]) OP-PT Subjective Patient Comments Patient Comments Pt was able to go on a 30 minute motorcycle ride yesterday. He did not have neck pain with the vibration but shifting did bother his left thumb. Pt was able to get back to lifting light kettle bells at the gym yesterday and feels good today. PT-OP-F Manual Assessment Start: 12/30/18 09:09 Freq: Status: Active Protocol: Document 12/30/18 11:15 [facility] (Rec: 12/30/18 14:08 [facility] [id number]) Manual Assessments Soft Tissue Assessment Soft Tissue Mobility Assessment tightness along scar, UT, LS, cervical paraspinals, scalenes & SCM B PT-OP-J Posture/Palpation/Skin Start: 12/30/18 09:09 Freq: Status: Active Protocol: Document 12/30/18 11:15 [facility] (Rec: 12/30/18 12:09 [facility] [id number]) Posture Evaluation Mauri Postural Classification System Mauri Postural Classifications Vertical/Posterior Elbow Flexion Test 0 Comments Posture Comments inc kyphosis & fwd head & shoulder PT-OP-K Range of Motion Start: 12/30/18 09:09 Freq: Status: Active Protocol: Document 12/30/18 11:15 [facility] (Rec: 12/30/18 12:09 [facility] [id number]) Cervical Spine Range of Motion Cervical Spine Active Degrees Testing Position Sitting Flexion 40 Extension 28 Rotation Left 44 Rotation Right 40 Lateral Flexion Left 22 Lateral Flexion Right 30 ROM Limitations Soft Tissue Tightness Pain PT-OP-L Special Tests Start: 12/30/18 09:09 Freq: Status: Active Protocol: Document 12/30/18 11:15 [facility] (Rec: 12/30/18 12:09 [facility] [id number]) Special Tests Cervical Spine Special Tests Shoulder Abduction Test Test Results about 110 B Alar Ligament Test Results neg Neural Special Tests- Upper Body Radial Nerve Tension Test Results neg B Median Nerve Tension Test Results Neg B Ulnar Nerve Tension Test Results neg B PT-OP-M Strength Start: 12/30/18 09:09 Freq: Status: Active Protocol: Document 12/30/18 11:15 [facility] (Rec: 12/30/18 12:09 [facility] [id number]) Shoulder Strength Shoulder Manual Muscle Testing Right Flexion 4- Good- Extension 4 Good Abduction (C5) 3+ Fair+ External Rotation 4+ Good+ Internal Rotation 4+ Good+ Left Flexion 4- Good- Extension 4 Good Abduction (C5) 3+ Fair+ External Rotation 4+ Good+ Internal Rotation 4+ Good+ Elbow/Forearm Strength Elbow and Forearm Manual Muscle Testing Right Flexion (C6) 4 Good Extension (C7) 4 Good Pronation 4- Good- Supination 4+ Good+ Left Flexion (C6) 4 Good Extension (C7) 4 Good Pronation 4- Good- Supination 4+ Good+ Wrist Strength Wrist Manual Muscle Testing Right Flexion (C7) 4+ Good+ Extension (C6) 5 Normal Ulnar Deviation 5 Normal Radial Deviation 5 Normal Left Flexion (C7) 4+ Good+ Extension (C6) 5 Normal Ulnar Deviation 5 Normal Radial Deviation 5 Normal Hand Refrigerated National Truck Driver/Pinch Strength Hand Strength Right Refrigerated National Truck Driver (lbs) 85 Left Refrigerated National Truck Driver (lbs) 90 PT-OP-Q Treatments Start: 12/30/18 09:09 Freq: Status: Active Protocol: Document 02/06/19 09:52 AR (Rec: 02/06/19 10:13 AR [email or web address]) Therapeutic Exercises Supine Exercises T/S ext over foam roll Supine Exercise Name T/S ext Equipment Used black 1/2 foam roll Reps/Minutes 1 min hold Comments added to HEP. pillow under head for support Sitting Exercises therapy putty Sitting Exercise Name grasp, opposition Side bilateral Resistance blue theraputty Reps/Minutes 4 min Comments pt reported fatigue after a few minutes. no thumb pain abd->90/90ER Sitting Exercise Name abd->90/90ER Side bilateral Equipment Used 2.2# theraballs Reps/Minutes 10 reps Comments pt able to maintain good scapular positioning bicep curl w pincer automotive service advisor Sitting Exercise Name all fingers pincer automotive service advisor. neutral wrist Side bilateral Equipment Used 5lbs free weights Reps/Minutes 10 reps Comments pt fatigued quickly bicep curls Sitting Exercise Name 3 way (sup, neutral, pron) Side bilateral Equipment Used 2# soft automotive service advisor hand weights Reps/Minutes 10 reps each position wrist extension Sitting Exercise Name wrist ext at 90 deg elbow flex Side bilateral Equipment Used 2# soft automotive service advisor hand weights Reps/Minutes 10 reps Comments shaking and fatigued quickly Standing Exercises Chops Standing Exercise Name PNF chops Side bilateral Resistance level 2 Equipment Used theraband Reps/Minutes 15 each side Comments pt cued for full shoulder ROM. trunk remaining in neutral Manual Therapy Treatment Soft Tissue Mobilization T/S paraspinals Body Location T/S paraspinals Mobilization Type Rolling Sustained Pressure Intensity/Depth Moderate Body Position Prone Joint Mobilizations T/S w movement Joint general thoracic Direction PA Grade IV Comments with cat/camel T/S Joint upper T/S Direction PA, rotation Grade III Body Position Prone Comments prone screw mobilization PT-OP-R Modalities Start: 12/30/18 09:09 Freq: Status: Active Protocol: Document 02/04/19 10:06 AR (Rec: 02/04/19 10:24 AR [email or web address]) Hot Pack/Cold Pack Treatment Hot Pack Location upper thoracic & C/S Patient Position Supine Treatment Duration (minutes) 10 PT-OP-T Assessment and Plan Start: 12/30/18 09:09 Freq: Status: Active Protocol: Document 02/06/19 09:52 AR (Rec: 02/06/19 10:13 AR [email or web address]) Physical Therapy Assessment Goals ROM Set Up Mechanic Stamping Machines Goal (LTG) Pt will have WNL cervical ROM in order to allow him to do typical daily activities like reading, driving, looking up without pian. LTG Duration 03/02/19 strenght Short Term Goal (STG) Pt will be indep with HEP STG Duration goal met Set Up Mechanic Stamping Machines Goal (LTG) Pt will have 5/5 UE strength & EFT in order to show improved stability LTG Duration 03/02/19 work Short Term Goal (STG) Pt will have average automotive service advisor strength for his age allowing him to do his job abilities ( 110 B) Nursing Home Goal (LTG) Pt will be able to return to work with min restrictions. LTG Duration 03/02/19 NDI Short Term Goal (STG) Pt will have score of 10/50 in order to show improved functional ability. STG Duration 01/30/19 Set Up Mechanic Stamping Machines Goal (LTG) Pt will have score of no greater than 2/50 in order to show good functional ability LTG Duration 03/02/19 Assessment Summary Assessment Pt's scapular stability and strength has improved and pt was able to demonstrate proper form with minimal cueing. Pt' s C/S ROM still seems to be limited by upper T/S hypomobility. Pt was taught a self mobilization to perform at home. Pt will benefit from continued manual work on upper T/S and progression of UE strengthening. Physical Therapy Plan Frequency and Duration Frequency of Treatment 2x/Week Duration of Treatment 2 months Plan of Care Start Date 12/30/18 Plan of Care End Date 03/02/19 Next Visit Focus/Plan Next Note Type Treatment Note Next Visit Plan 4 way shoulder press w juan ohara, progress scapular and automotive service advisor strengthening exercises. cont to address T/S hypomobility
--- NOTE | 2019-02-11 15:00 | PT.OTN ---
Current Diagnoses Spinal stenosis, cervical region (02/11/19) Abnormal posture (02/11/19) Weakness (02/11/19) Physical Therapy Treatment Note PT-OP-A Visit Information Start: 12/30/18 09:09 Freq: Status: Active Protocol: Document 02/11/19 09:05 AR (Rec: 02/11/19 13:56 AR [email or web address]) Out-Patient Physical Therapy Visit Information Visit Information Visit Type Treatment Note Visit Start Time 09:05 Visit Stop Time 09:45 Total Visit Minutes 55 Visit Number 04/12 Number of ARRANGER ASSEMBLER Visits 0 PT-OP-B Current Condition Start: 12/30/18 09:09 Freq: Status: Active Protocol: Document 12/30/18 11:15 [facility] (Rec: 12/30/18 12:09 [facility] [id number]) Current Condition History of Current Condition Onset Date 11/27/18 Current Complaints neck pain post surgery History of Current Condition Pt reports he had a C5-6 ant cervical discectomy w/ arthrodesis w/ant cervical plate on11/27/18 d/t 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 Pt has nott been able to work since Jul. Pt is allowed to go on long walks and hikes Treatment Goals Patient/Caregiver Goals Return to work moy, build back up UE strength PT-OP-C Subjective Start: 12/30/18 09:09 Freq: Status: Active Protocol: Document 02/11/19 09:05 AR (Rec: 02/11/19 13:56 AR [email or web address]) OP-PT Subjective Patient Comments Patient Comments Pt was able to attend yoga class and only needed to take a break a few times and modify some poses. His thumb is still bothering him and he is attempting to get a referral for hand therapy. PT-OP-F Manual Assessment Start: 12/30/18 09:09 Freq: Status: Active Protocol: Document 12/30/18 11:15 [facility] (Rec: 12/30/18 14:08 [facility] [id number]) Manual Assessments Soft Tissue Assessment Soft Tissue Mobility Assessment tightness along scar, UT, LS, cervical paraspinals, scalenes & SCM B PT-OP-J Posture/Palpation/Skin Start: 12/30/18 09:09 Freq: Status: Active Protocol: Document 12/30/18 11:15 [facility] (Rec: 12/30/18 12:09 [facility] [id number]) Posture Evaluation [facility] Postural Classification System Mauri Postural Classifications Vertical/Posterior Elbow Flexion Test 0 Comments Posture Comments inc kyphosis & fwd head & shoulder PT-OP-K Range of Motion Start: 12/30/18 09:09 Freq: Status: Active Protocol: Document 12/30/18 11:15 [facility] (Rec: 12/30/18 12:09 [facility] [id number]) Cervical Spine Range of Motion Cervical Spine Active Degrees Testing Position Sitting Flexion 40 Extension 28 Rotation Left 44 Rotation Right 40 Lateral Flexion Left 22 Lateral Flexion Right 30 ROM Limitations Soft Tissue Tightness Pain PT-OP-L Special Tests Start: 12/30/18 09:09 Freq: Status: Active Protocol: Document 12/30/18 11:15 [facility] (Rec: 12/30/18 12:09 [facility] [id number]) Special Tests Cervical Spine Special Tests Shoulder Abduction Test Test Results about 110 B Alar Ligament Test Results neg Neural Special Tests- Upper Body Radial Nerve Tension Test Results neg B Median Nerve Tension Test Results Neg B Ulnar Nerve Tension Test Results neg B PT-OP-M Strength Start: 12/30/18 09:09 Freq: Status: Active Protocol: Document 12/30/18 11:15 [facility] (Rec: 12/30/18 12:09 [facility] [id number]) Shoulder Strength Shoulder Manual Muscle Testing Right Flexion 4- Good- Extension 4 Good Abduction (C5) 3+ Fair+ External Rotation 4+ Good+ Internal Rotation 4+ Good+ Left Flexion 4- Good- Extension 4 Good Abduction (C5) 3+ Fair+ External Rotation 4+ Good+ Internal Rotation 4+ Good+ Elbow/Forearm Strength Elbow and Forearm Manual Muscle Testing Right Flexion (C6) 4 Good Extension (C7) 4 Good Pronation 4- Good- Supination 4+ Good+ Left Flexion (C6) 4 Good Extension (C7) 4 Good Pronation 4- Good- Supination 4+ Good+ Wrist Strength Wrist Manual Muscle Testing Right Flexion (C7) 4+ Good+ Extension (C6) 5 Normal Ulnar Deviation 5 Normal Radial Deviation 5 Normal Left Flexion (C7) 4+ Good+ Extension (C6) 5 Normal Ulnar Deviation 5 Normal Radial Deviation 5 Normal Hand Corporate Meeting Planner/Pinch Strength Hand Strength Right Corporate Meeting Planner (lbs) 85 Left Corporate Meeting Planner (lbs) 90 PT-OP-Q Treatments Start: 12/30/18 09:09 Freq: Status: Active Protocol: Document 02/11/19 09:05 AR (Rec: 02/11/19 13:56 AR [email or web address]) Therapeutic Exercises Supine Exercises T/S ext over foam roll Supine Exercise Name T/S ext Equipment Used black 1/2 foam roll Reps/Minutes 2 min hold Comments added to HEP. pillow under head for support Sitting Exercises abd->90/90ER Sitting Exercise Name abd->90/90ER Side bilateral Equipment Used 2.2# theraballs Reps/Minutes 2x10 reps Comments pt able to maintain good scapular positioning bicep curl w pincer account service associate Sitting Exercise Name all fingers pincer account service associate. neutral wrist Side bilateral Equipment Used 5lbs free weights Reps/Minutes 2 x10 reps bicep curls Sitting Exercise Name 3 way (sup, neutral, pron) Side bilateral Equipment Used 5# soft account service associate hand weights Reps/Minutes 10 reps each position wrist extension Sitting Exercise Name wrist ext at 90 deg elbow flex Side bilateral Equipment Used 2# dumbells Reps/Minutes 2x10 reps Comments shaking and fatigued during end of second set Standing Exercises Chops Standing Exercise Name PNF chops Side bilateral Resistance level 2 Equipment Used theraband Reps/Minutes 2x10 reps each side Comments pt able to correct shoulder elevation with minimal cueing chin tuck Standing Exercise Name chin tucks Reps/Minutes 5x10 sec holds Comments pt able to demonstrate good form w/o pain Manual Therapy Treatment Joint Mobilizations T/S w movement Joint T3-T6 Direction PA Grade III Body Position Supine Comments pistol account service associate mobilization with deep breathing T/S Joint general thoracic Direction PA, rotation Grade IV Body Position Prone PT-OP-R Modalities Start: 12/30/18 09:09 Freq: Status: Active Protocol: Document 02/11/19 09:05 AR (Rec: 02/11/19 13:56 AR [email or web address]) Hot Pack/Cold Pack Treatment Hot Pack Location upper thoracic & C/S Patient Position Supine Treatment Duration (minutes) 15 PT-OP-T Assessment and Plan Start: 12/30/18 09:09 Freq: Status: Active Protocol: Document 02/11/19 09:05 AR (Rec: 02/11/19 13:56 AR [email or web address]) Physical Therapy Assessment Goals ROM Corn Press Operator Goal (LTG) Pt will have WNL cervical ROM in order to allow him to do typical daily activities like reading, driving, looking up without pian. LTG Duration 03/02/19 strenght Short Term Goal (STG) Pt will be indep with HEP STG Duration goal met Corn Press Operator Goal (LTG) Pt will have 5/5 UE strength & EFT in order to show improved stability LTG Duration 03/02/19 work Short Term Goal (STG) Pt will have average account service associate strength for his age allowing him to do his job abilities ( 110 B) Corn Press Operator Goal (LTG) Pt will be able to return to work with min restrictions. LTG Duration 03/02/19 NDI Short Term Goal (STG) Pt will have score of 10/50 in order to show improved functional ability. STG Duration 01/30/19 Usp Goal (LTG) Pt will have score of no greater than 2/50 in order to show good functional ability LTG Duration 03/02/19 Assessment Summary Assessment Pt's strength has been improving and pt has tolerated inc in resistance training well. Pt's soft tissues had less restrictions today, but motion is still limited by T/S hypomobility. Pt was sore after mobilizations. Physical Therapy Plan Frequency and Duration Frequency of Treatment 2x/Week Duration of Treatment 2 months Plan of Care Start Date 12/30/18 Plan of Care End Date 03/02/19 Next Visit Focus/Plan Next Note Type Treatment Note Next Visit Plan assess pt tolerance to inc resistance and manual tx. add 4 count shoulder press, scap protraction push ups at wall
--- NOTE | 2019-02-18 15:13 | PT.OTN ---
Current Diagnoses Spinal stenosis, cervical region (02/18/19) Abnormal posture (02/18/19) Weakness (02/18/19) Physical Therapy Treatment Note PT-OP-A Visit Information Start: 12/30/18 09:09 Freq: Status: Active Protocol: Document 02/18/19 09:21 AR (Rec: 02/18/19 09:37 AR [email or web address]) Out-Patient Physical Therapy Visit Information Visit Information Visit Type Treatment Note Visit Start Time 08:20 Visit Stop Time 09:10 Total Visit Minutes 50 Visit Number 05/13 Number of HOSPICE LIAISON Visits 0 PT-OP-B Current Condition Start: 12/30/18 09:09 Freq: Status: Active Protocol: Document 12/30/18 11:15 [facility] (Rec: 12/30/18 12:09 [facility] [id number]) Current Condition History of Current Condition Onset Date 11/27/18 Current Complaints neck pain post surgery History of Current Condition Pt reports he had a C5-6 ant cervical discectomy w/ arthrodesis w/ant cervical plate on11/27/18 d/t dec B outpatient clerk strength & inc pain. Pt has nott been able to work since Jul. Pt is allowed to go on long walks and hikes Treatment Goals Patient/Caregiver Goals Return to work moy, build back up UE strength PT-OP-C Subjective Start: 12/30/18 09:09 Freq: Status: Active Protocol: Document 02/18/19 09:21 AR (Rec: 02/18/19 09:37 AR [email or web address]) OP-PT Subjective Patient Comments Patient Comments Pt stated his upper back was sore after last visit for the rest of the day but felt fine the following day. He is feeling well today. PT-OP-F Manual Assessment Start: 12/30/18 09:09 Freq: Status: Active Protocol: Document 12/30/18 11:15 [facility] (Rec: 12/30/18 14:08 [facility] [id number]) Manual Assessments Soft Tissue Assessment Soft Tissue Mobility Assessment tightness along scar, UT, LS, cervical paraspinals, scalenes & SCM B PT-OP-J Posture/Palpation/Skin Start: 12/30/18 09:09 Freq: Status: Active Protocol: Document 12/30/18 11:15 LR (Rec: 12/30/18 12:09 [facility] [id number]) Posture Evaluation [facility] Postural Classification System [facility] Postural Classifications Vertical/Posterior Elbow Flexion Test 0 Comments Posture Comments inc kyphosis & fwd head & shoulder PT-OP-K Range of Motion Start: 12/30/18 09:09 Freq: Status: Active Protocol: Document 12/30/18 11:15 [facility] (Rec: 12/30/18 12:09 [facility] [id number]) Cervical Spine Range of Motion Cervical Spine Active Degrees Testing Position Sitting Flexion 40 Extension 28 Rotation Left 44 Rotation Right 40 Lateral Flexion Left 22 Lateral Flexion Right 30 ROM Limitations Soft Tissue Tightness Pain PT-OP-L Special Tests Start: 12/30/18 09:09 Freq: Status: Active Protocol: Document 12/30/18 11:15 [facility] (Rec: 12/30/18 12:09 [facility] [id number]) Special Tests Cervical Spine Special Tests Shoulder Abduction Test Test Results about 110 B Alar Ligament Test Results neg Neural Special Tests- Upper Body Radial Nerve Tension Test Results neg B Median Nerve Tension Test Results Neg B Ulnar Nerve Tension Test Results neg B PT-OP-M Strength Start: 12/30/18 09:09 Freq: Status: Active Protocol: Document 12/30/18 11:15 [facility] (Rec: 12/30/18 12:09 [facility] [id number]) Shoulder Strength Shoulder Manual Muscle Testing Right Flexion 4- Good- Extension 4 Good Abduction (C5) 3+ Fair+ External Rotation 4+ Good+ Internal Rotation 4+ Good+ Left Flexion 4- Good- Extension 4 Good Abduction (C5) 3+ Fair+ External Rotation 4+ Good+ Internal Rotation 4+ Good+ Elbow/Forearm Strength Elbow and Forearm Manual Muscle Testing Right Flexion (C6) 4 Good Extension (C7) 4 Good Pronation 4- Good- Supination 4+ Good+ Left Flexion (C6) 4 Good Extension (C7) 4 Good Pronation 4- Good- Supination 4+ Good+ Wrist Strength Wrist Manual Muscle Testing Right Flexion (C7) 4+ Good+ Extension (C6) 5 Normal Ulnar Deviation 5 Normal Radial Deviation 5 Normal Left Flexion (C7) 4+ Good+ Extension (C6) 5 Normal Ulnar Deviation 5 Normal Radial Deviation 5 Normal Hand Archivist/Pinch Strength Hand Strength Right Archivist (lbs) 85 Left Archivist (lbs) 90 PT-OP-Q Treatments Start: 12/30/18 09:09 Freq: Status: Active Protocol: Document 02/18/19 09:21 AR (Rec: 02/18/19 09:37 AR [email or web address]) Therapeutic Exercises Supine Exercises 4 count shoulder press Supine Exercise Name 4 count shoulder press Side bilateral Resistance 2# dumbell Reps/Minutes 10 each side Comments pt cued for chin tuck Sitting Exercises bicep curl w pincer outpatient clerk Sitting Exercise Name all fingers pincer outpatient clerk. neutral wrist Side bilateral Equipment Used 5lbs free weights Reps/Minutes 2 x10 reps bicep curls Sitting Exercise Name 3 way (sup, neutral, pron) Side bilateral Equipment Used 4.4# round weights Reps/Minutes 10 reps each position Standing Exercises army wall crawls Standing Exercise Name 90 deg elbow flexion with isometric shoulder ER w resistance band Side bilateral Resistance yellow resistance band Reps/Minutes 3 reps Comments walking elbow up wall wall sliders Standing Exercise Name iso protraction with UE movements Side bilateral Equipment Used sliders Reps/Minutes 15 reps Comments pt fatigued quickly Manual Therapy Treatment Soft Tissue Mobilization T/S paraspinals Body Location T/S paraspinals Mobilization Type Rolling Sustained Pressure Intensity/Depth Moderate Body Position Supine UT, scalenes Body Location UT, scalenes Mobilization Type Myofascial Release Strumming Sustained Pressure Intensity/Depth Moderate Body Position Supine Comments caused sensation down arm, relieved when pressure released Joint Mobilizations T/S w movement Joint T3-T6 Direction PA Grade III Body Position Supine Comments pistol outpatient clerk mobilization with deep breathing T/S Joint T3-T6 Direction PA into ext Grade III Body Position Sitting PT-OP-R Modalities Start: 12/30/18 09:09 Freq: Status: Active Protocol: Document 02/18/19 09:21 AR (Rec: 02/18/19 09:37 AR [email or web address]) Hot Pack/Cold Pack Treatment Hot Pack Location upper thoracic & C/S Patient Position Supine Treatment Duration (minutes) 10 PT-OP-T Assessment and Plan Start: 12/30/18 09:09 Freq: Status: Active Protocol: Document 02/18/19 09:21 AR (Rec: 02/18/19 09:37 AR [email or web address]) Physical Therapy Assessment Goals ROM Senior Living Goal (LTG) Pt will have WNL cervical ROM in order to allow him to do typical daily activities like reading, driving, looking up without pian. LTG Duration 03/02/19 strenght Short Term Goal (STG) Pt will be indep with HEP STG Duration goal met Senior Living Goal (LTG) Pt will have 5/5 UE strength & EFT in order to show improved stability LTG Duration 03/02/19 work Short Term Goal (STG) Pt will have average outpatient clerk strength for his age allowing him to do his job abilities ( 110 B) Senior Living Goal (LTG) Pt will be able to return to work with min restrictions. LTG Duration 03/02/19 NDI Short Term Goal (STG) Pt will have score of 10/50 in order to show improved functional ability. STG Duration 01/30/19 Criminalist Goal (LTG) Pt will have score of no greater than 2/50 in order to show good functional ability LTG Duration 03/02/19 Assessment Summary Assessment Pt has been able to tolerate inc in resistance. Pt's neck ROM still seemd to be limited by upper T/S hypomobility. Pain into thumb may be partially contributed to by neural tension. Physical Therapy Plan Frequency and Duration Frequency of Treatment 2x/Week Duration of Treatment 2 months Plan of Care Start Date 12/30/18 Plan of Care End Date 03/02/19 Next Visit Focus/Plan Next Note Type Treatment Note Next Visit Plan inc scapular stability, review posture and add arm movements is appropriate.
--- NOTE | 2019-02-27 17:38 | PT.OTN ---
Current Diagnoses Spinal stenosis, cervical region (02/27/19) Abnormal posture (02/27/19) Weakness (02/27/19) Physical Therapy Treatment Note PT-OP-A Visit Information Start: 12/30/18 09:09 Freq: Status: Active Protocol: Document 02/27/19 08:15 AR (Rec: 02/27/19 11:54 AR [email or web address]) Out-Patient Physical Therapy Visit Information Visit Information Visit Type Treatment Note Visit Start Time 08:15 Visit Stop Time 09:48 Total Visit Minutes 43 Visit Number 06/12 Number of INFORMATICS SPECIALIST Visits 0 PT-OP-B Current Condition Start: 12/30/18 09:09 Freq: Status: Active Protocol: Document 12/30/18 11:15 LR (Rec: 12/30/18 12:09 [facility] [id number]) Current Condition History of Current Condition Onset Date 11/27/18 Current Complaints neck pain post surgery History of Current Condition Pt reports he had a C5-6 ant cervical discectomy w/ arthrodesis w/ant cervical plate on11/27/18 d/t dec B core cleaner strength & inc pain. Pt has nott been able to work since Jul. Pt is allowed to go on long walks and hikes Treatment Goals Patient/Caregiver Goals Return to work moy, build back up UE strength PT-OP-C Subjective Start: 12/30/18 09:09 Freq: Status: Active Protocol: Document 02/27/19 08:15 AR (Rec: 02/27/19 11:54 AR [email or web address]) OP-PT Subjective Patient Comments Patient Comments Pt canceled last appt d/t dog being put down unexpectedly. Pt still feels stiff in upper back and neck area. He plans on going to yoga this afternoon. PT-OP-F Manual Assessment Start: 12/30/18 09:09 Freq: Status: Active Protocol: Document 12/30/18 11:15 LR (Rec: 12/30/18 14:08 [facility] [id number]) Manual Assessments Soft Tissue Assessment Soft Tissue Mobility Assessment tightness along scar, UT, LS, cervical paraspinals, scalenes & SCM B PT-OP-J Posture/Palpation/Skin Start: 12/30/18 09:09 Freq: Status: Active Protocol: Document 02/27/19 08:15 LR (Rec: 02/27/19 08:33 [facility] [id number]) Posture Evaluation [facility] Postural Classification System Elbow Flexion Test 2 PT-OP-K Range of Motion Start: 12/30/18 09:09 Freq: Status: Active Protocol: Document 02/27/19 08:15 [facility] (Rec: 02/27/19 08:33 [facility] [id number]) Cervical Spine Range of Motion Cervical Spine Active Degrees Testing Position Sitting Flexion 52 Extension 42 Rotation Left 56 Rotation Right 42 Lateral Flexion Left 40 Lateral Flexion Right 35 PT-OP-L Special Tests Start: 12/30/18 09:09 Freq: Status: Active Protocol: Document 12/30/18 11:15 [facility] (Rec: 12/30/18 12:09 [facility] [id number]) Special Tests Cervical Spine Special Tests Shoulder Abduction Test Test Results about 110 B Alar Ligament Test Results neg Neural Special Tests- Upper Body Radial Nerve Tension Test Results neg B Median Nerve Tension Test Results Neg B Ulnar Nerve Tension Test Results neg B PT-OP-M Strength Start: 12/30/18 09:09 Freq: Status: Active Protocol: Document 02/27/19 08:15 [facility] (Rec: 02/27/19 08:33 [facility] [id number]) Shoulder Strength Shoulder Manual Muscle Testing Right Flexion 4 Good Extension 5 Normal Abduction (C5) 4 Good External Rotation 4 Good Internal Rotation 4+ Good+ Left Flexion 4 Good Extension 4+ Good+ External Rotation 4 Good Internal Rotation 5 Normal Elbow/Forearm Strength Elbow and Forearm Manual Muscle Testing Right Flexion (C6) 4+ Good+ Extension (C7) 4 Good Pronation 4- Good- Supination 4+ Good+ Left Flexion (C6) 4 Good Extension (C7) 4 Good Pronation 4- Good- Supination 4+ Good+ Wrist Strength Wrist Manual Muscle Testing Right Flexion (C7) 5 Normal Left Flexion (C7) 4+ Good+ Hand Quality Control Coordinator/Pinch Strength Hand Strength Right Quality Control Coordinator (lbs) 82 Left Quality Control Coordinator (lbs) 80 Comments old dynamometer was sent in shortly after eval and was reading 10% too high when calibrated so new dynometer used today PT-OP-Q Treatments Start: 12/30/18 09:09 Freq: Status: Active Protocol: Document 02/27/19 08:15 AR (Rec: 02/27/19 11:54 AR [email or web address]) Therapeutic Exercises Supine Exercises T/S ext over foam roll Supine Exercise Name over towel. shoulder flex & abd Side bilateral Equipment Used towel roll Reps/Minutes 3 min Comments added to HEP, pt not compliant with foam roll Standing Exercises wall posture Standing Exercise Name wall posture w towel behind T/ S. arm movements Side bilateral Reps/Minutes 3 min Manual Therapy Treatment Soft Tissue Mobilization UT, scalenes Body Location UT, scalenes Mobilization Type Myofascial Release,Strumming, Sustained Pressure Intensity/Depth Moderate Body Position Supine Comments to address limited R rotation SCM Body Location SCM Mobilization Type Strumming,Sustained Pressure Intensity/Depth Moderate Body Position Supine Comments to address limited R rotation Joint Mobilizations T/S Joint T1-3 Direction R rotation Grade III Body Position Sitting Comments with cervical rotation to R PT-OP-R Modalities Start: 12/30/18 09:09 Freq: Status: Active Protocol: Document 02/18/19 09:21 AR (Rec: 02/18/19 09:37 AR [email or web address]) Hot Pack/Cold Pack Treatment Hot Pack Location upper thoracic & C/S Patient Position Supine Treatment Duration (minutes) 10 PT-OP-T Assessment and Plan Start: 12/30/18 09:09 Freq: Status: Active Protocol: Document 02/27/19 08:15 AR (Rec: 02/27/19 11:54 AR [email or web address]) Physical Therapy Assessment Goals ROM Oyster Preparer Goal (LTG) Pt will have WNL cervical ROM in order to allow him to do typical daily activities like reading, driving, looking up without pain. 02/27/19: Pt near normal into flexion. nearly doubled ROM in all other directions except R rotation. LTG Duration 04/29/2019 strenght Short Term Goal (STG) Pt will be indep with HEP STG Duration goal met Oyster Preparer Goal (LTG) Pt will have 5/5 UE strength & EFT in order to show improved stability 02/27/19: progress in shoulder strength. weakness with pronation. LTG Duration 04/29/2019 work Short Term Goal (STG) Pt will have average core cleaner strength for his age allowing him to do his job abilities ( 110 B) 02/27/19: R 82 lbs, L 80 lbs Oyster Preparer Goal (LTG) Pt will be able to return to work with min restrictions. 02/27/19: not met. Pt has not been cleared to return to work . LTG Duration 04/29/2019 NDI Short Term Goal (STG) Pt will have score of 10/50 in order to show improved functional ability. 02/27/19: not met, NDI score 16 /50 STG Duration 01/30/19 Oyster Preparer Goal (LTG) Pt will have score of no greater than 2/50 in order to show good functional ability 02/27/19: not met, NDI score 16 /50 LTG Duration 04/29/2019 Progress Towards Goals Progress Towards Goals Progressing Toward Goals Progress Comments Pt has made progress with strengthening and ROM. Quality Control Coordinator strength may still be limited by 1st MCP pain and pt has PT eval coming up to treat that. Assessment Summary Assessment Pt shows improvements in strength and ROM but still has some limitations. Limitations in R rotation may be d/t soft tissue restrictions as well as upper T/S hypomobility. Pt is seeking PT for thumb pain as well, which may be limiting core cleaner strength. Pt did not meet NDI score goal and he is mostly still limited by strength, inability to work and participate in recreational activities. However, pt has begun to return to some recreational activities including yoga and gym exercise. Physical Therapy Plan Frequency and Duration Frequency of Treatment 2x/Week Duration of Treatment 2 months Plan of Care Start Date 02/27/19 Plan of Care End Date 04/29/19 Therapeutic Interventions Therapeutic Interventions Aquatic Therapy,Gait Training, Home Exercise Program,Joint Mobilizations,Manual Therapy, Neuromuscular Re-education, Patient/Caregiver Education, Self-Care/Home Management,Soft Tissue Mobilization,Taping, Therapeutic Activities, Therapeutic Exercises Modalities Cold Pack/Ice Massage,Hot Packs Next Visit Focus/Plan Next Note Type Treatment Note Next Visit Plan functional scapular stability. serratus anterior strength ( inclined plank w protraction, isometric at wall w sliders). cont to address restrictions manually (anterior chest, neck )
--- NOTE | 2019-02-27 17:38 | PT.OPPOC ---
Current Diagnoses Spinal stenosis, cervical region (02/27/19) Abnormal posture (02/27/19) Weakness (02/27/19) Visit Care Team Role Provider Type VALERY Antoine Primary Care Provider Non-Staff Specialty: Family Practice Address: [address] [place] [address], [address], [place], [address] Email: Ulices Duong MD Attending Provider Non-Staff Specialty: Medical Address: [address] [place] [address], [id number] Email: Plan Of Care PT-OP-T Assessment and Plan Start: 12/30/18 09:09 Freq: Status: Active Protocol: Document 02/27/19 08:15 AR (Rec: 02/27/19 11:54 AR [email or web address]) Physical Therapy Assessment Goals ROM Steel Checker Goal (LTG) Pt will have WNL cervical ROM in order to allow him to do typical daily activities like reading, driving, looking up without pain. 02/27/19: Pt near normal into flexion. nearly doubled ROM in all other directions except R rotation. LTG Duration 04/29/2019 strenght Short Term Goal (STG) Pt will be indep with HEP STG Duration goal met Steel Checker Goal (LTG) Pt will have 5/5 UE strength & EFT in order to show improved stability 02/27/19: progress in shoulder strength. weakness with pronation. 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 02/27/19: not met. Pt has not been cleared to return to work . LTG Duration 04/29/2019 NDI Short Term Goal (STG) Pt will have score of 10/50 in order to show improved functional ability. 02/27/19: not met, NDI score 16 /50 STG Duration 01/30/19 Steel Checker Goal (LTG) Pt will have score of no greater than 2/50 in order to show good functional ability 02/27/19: not met, NDI score 16 /50 LTG Duration 04/29/2019 Progress Towards Goals Progress Towards Goals Progressing Toward Goals Progress Comments Pt has made progress with strengthening and ROM. Ammonium Nitrate Crystallizer strength may still be limited by 1st MCP pain and pt has PT eval coming up to treat that. Assessment Summary Assessment Pt shows improvements in strength and ROM but still has some limitations. Limitations in R rotation may be d/t soft tissue restrictions as well as upper T/S hypomobility. Pt is seeking PT for thumb pain as well, which may be limiting geospatial intelligence analyst strength. Pt did not meet NDI score goal and he is mostly still limited by strength, inability to work and participate in recreational activities. However, pt has begun to return to some recreational activities including yoga and gym exercise. Physical Therapy Plan Frequency and Duration Frequency of Treatment 2x/Week Duration of Treatment 2 months Plan of Care Start Date 02/27/19 Plan of Care End Date 04/29/19 Therapeutic Interventions Therapeutic Interventions Aquatic Therapy,Gait Training, Home Exercise Program,Joint Mobilizations,Manual Therapy, Neuromuscular Re-education, Patient/Caregiver Education, Self-Care/Home Management,Soft Tissue Mobilization,Taping, Therapeutic Activities, Therapeutic Exercises Modalities Cold Pack/Ice Massage,Hot Packs Next Visit Focus/Plan Next Note Type Treatment Note Next Visit Plan functional scapular stability. serratus anterior strength ( inclined plank w protraction, isometric at wall w sliders). cont to address restrictions manually (anterior chest, neck ) Plan of Care Dates Plan of Care Start Date 02/27/19 Plan of Care End Date 04/29/19 Please Sign and Return: I have reviewed this Plan of Care and certify that the skilled therapy services above are required to meet the patient?s needs. Physician Signature Date Printed Name and Credentials Clinical Instructor Signature Printed Name and Credentials
--- NOTE | 2019-03-05 18:12 | PT.OTN ---
Current Diagnoses Spinal stenosis, cervical region (03/05/19) Abnormal posture (03/05/19) Weakness (03/05/19) Physical Therapy Treatment Note PT-OP-A Visit Information Start: 12/30/18 09:09 Freq: Status: Active Protocol: Document 03/05/19 16:50 AR (Rec: 03/05/19 17:11 AR [id number]) Out-Patient Physical Therapy Visit Information Visit Information Visit Type Treatment Note Visit Start Time 09:05 Visit Stop Time 09:55 Total Visit Minutes 50 Visit Number 07/13 Number of CLIENT CARE REPRESENTATIVE Visits 0 PT-OP-B Current Condition Start: 12/30/18 09:09 Freq: Status: Active Protocol: Document 12/30/18 11:15 [facility] (Rec: 12/30/18 12:09 [facility] [id number]) Current Condition History of Current Condition Onset Date 11/27/18 Current Complaints neck pain post surgery History of Current Condition Pt reports he had a C5-6 ant cervical discectomy w/ arthrodesis w/ant cervical plate on11/27/18 d/t dec B media director strength & inc pain. Pt has nott been able to work since Jul. Pt is allowed to go on long walks and hikes Treatment Goals Patient/Caregiver Goals Return to work moy, build back up UE strength PT-OP-C Subjective Start: 12/30/18 09:09 Freq: Status: Active Protocol: Document 03/05/19 16:50 AR (Rec: 03/05/19 17:11 AR [id number]) OP-PT Subjective Patient Comments Patient Comments Pt has been going to the gym and was able to incorporate kettle ohara exercises. He uses a range of 8#-12# weights and has been incorporating UE movements into LE strengthening routine. He has been performing wall posture exercise at home. PT-OP-F Manual Assessment Start: 12/30/18 09:09 Freq: Status: Active Protocol: Document 12/30/18 11:15 [facility] (Rec: 12/30/18 14:08 [facility] [id number]) Manual Assessments Soft Tissue Assessment Soft Tissue Mobility Assessment tightness along scar, UT, LS, cervical paraspinals, scalenes & SCM B PT-OP-J Posture/Palpation/Skin Start: 12/30/18 09:09 Freq: Status: Active Protocol: Document 02/27/19 08:15 [facility] (Rec: 02/27/19 08:33 [facility] [id number]) Posture Evaluation [facility] Postural Classification System Elbow Flexion Test 2 PT-OP-K Range of Motion Start: 12/30/18 09:09 Freq: Status: Active Protocol: Document 02/27/19 08:15 [facility] (Rec: 02/27/19 08:33 [facility] [id number]) Cervical Spine Range of Motion Cervical Spine Active Degrees Testing Position Sitting Flexion 52 Extension 42 Rotation Left 56 Rotation Right 42 Lateral Flexion Left 40 Lateral Flexion Right 35 PT-OP-L Special Tests Start: 12/30/18 09:09 Freq: Status: Active Protocol: Document 12/30/18 11:15 [facility] (Rec: 12/30/18 12:09 [facility] [id number]) Special Tests Cervical Spine Special Tests Shoulder Abduction Test Test Results about 110 B Alar Ligament Test Results neg Neural Special Tests- Upper Body Radial Nerve Tension Test Results neg B Median Nerve Tension Test Results Neg B Ulnar Nerve Tension Test Results neg B PT-OP-M Strength Start: 12/30/18 09:09 Freq: Status: Active Protocol: Document 02/27/19 08:15 [facility] (Rec: 02/27/19 08:33 [facility] [id number]) Shoulder Strength Shoulder Manual Muscle Testing Right Flexion 4 Good Extension 5 Normal Abduction (C5) 4 Good External Rotation 4 Good Internal Rotation 4+ Good+ Left Flexion 4 Good Extension 4+ Good+ External Rotation 4 Good Internal Rotation 5 Normal Elbow/Forearm Strength Elbow and Forearm Manual Muscle Testing Right Flexion (C6) 4+ Good+ Extension (C7) 4 Good Pronation 4- Good- Supination 4+ Good+ Left Flexion (C6) 4 Good Extension (C7) 4 Good Pronation 4- Good- Supination 4+ Good+ Wrist Strength Wrist Manual Muscle Testing Right Flexion (C7) 5 Normal Left Flexion (C7) 4+ Good+ Hand Stakes Player/Pinch Strength Hand Strength Right Stakes Player (lbs) 82 Left Stakes Player (lbs) 80 Comments old dynamometer was sent in shortly after eval and was reading 10% too high when calibrated so new dynometer used today PT-OP-Q Treatments Start: 12/30/18 09:09 Freq: Status: Active Protocol: Document 03/05/19 16:50 AR (Rec: 03/05/19 17:11 AR [id number]) Gym Equipment Cable Column (Body Solid) Rows Details squat position Resistance 30# Reps/Time 15 reps Therapeutic Exercises Sitting Exercises T/S flex/ext Sitting Exercise Name thoracic extension & flexion Reps/Minutes 10 reps Comments pt reported tightness in lower thoracic spine w exercise Standing Exercises wall push ups Standing Exercise Name wall push ups Reps/Minutes 2x8 reps Comments pt fatigued quickly. had difficulty with eccentric control lunge with body blade Standing Exercise Name shoulder flexion Side bilateral Equipment Used medium size body blade Reps/Minutes 10 ea shoulder abduction Standing Exercise Name w body blade Side bilateral Equipment Used medium size bosy blade Reps/Minutes 10 ea squat with body blade Standing Exercise Name shoulder flexion Side bilateral Equipment Used medium size body blade Reps/Minutes 10 reps wall posture Standing Exercise Name wall posture w towel behind T/ S. arm movements Side bilateral Reps/Minutes 3 min Comments reviewed from [facility] Manual Therapy Treatment Soft Tissue Mobilization T/S paraspinals Body Location T/S paraspinals Mobilization Type Rolling,Sustained Pressure Intensity/Depth Moderate Body Position Sitting Comments into lumbar flexion Joint Mobilizations T/S w movement Joint T 7-9 Direction PA Grade III Body Position Sitting Comments with T/S ext T/S Joint general thoracic Direction PA, rotation Grade III Body Position Prone Comments with deep breathing. prone screw mobilization. Self-Care/Home Management Treatment Education Patient Education Home Exercise Program Other Education added 3 way bicep curl, wrist extension, 90/90 ER and wall push ups to [facility] PT-OP-R Modalities Start: 12/30/18 09:09 Freq: Status: Active Protocol: Document 03/05/19 16:50 AR (Rec: 03/05/19 17:11 AR [id number]) Hot Pack/Cold Pack Treatment Hot Pack Location upper thoracic & C/S Patient Position Supine Treatment Duration (minutes) 10 PT-OP-T Assessment and Plan Start: 12/30/18 09:09 Freq: Status: Active Protocol: Document 03/05/19 16:50 AR (Rec: 03/05/19 17:11 AR [id number]) Physical Therapy Assessment Goals ROM Final Assembly Worker Goal (LTG) Pt will have WNL cervical ROM in order to allow him to do typical daily activities like reading, driving, looking up without pain. 02/27/19: Pt near normal into flexion. nearly doubled ROM in all other directions except R rotation. LTG Duration 04/29/2019 strenght Short Term Goal (STG) Pt will be indep with HEP STG Duration goal met Long-Term Goal (LTG) Pt will have 5/5 UE strength & EFT in order to show improved stability 02/27/19: progress in shoulder strength. weakness with pronation. LTG Duration 04/29/2019 work Short Term Goal (STG) Pt will have average media director strength for his age allowing him to do his job abilities ( 110 B) 02/27/19: R 82 lbs, L 80 lbs Long-Term Goal (LTG) Pt will be able to return to work with min restrictions. 02/27/19: not met. Pt has not been cleared to return to work . LTG Duration 04/29/2019 NDI Short Term Goal (STG) Pt will have score of 10/50 in order to show improved functional ability. 02/27/19: not met, NDI score 16 /50 STG Duration 01/30/19 Final Assembly Worker Goal (LTG) Pt will have score of no greater than 2/50 in order to show good functional ability 02/27/19: not met, NDI score 16 /50 LTG Duration 04/29/2019 Assessment Summary Assessment Pt has been able to inc weight during UE exercises at gym and was educated on other exercises he could incoporate. Bicep and wrist strengthening exercises were briefly reviewed and added to HEP to address continued strength deficits. Pt struggled with body blade and fatigued quickly, but reported he felt exercise in his shoulder blade area. Pt will benefit from continued strength training and manual therapy to address hypomobility of cervical and thoracic spine. Physical Therapy Plan Frequency and Duration Frequency of Treatment 2x/Week Duration of Treatment 2 months Plan of Care Start Date 02/27/19 Plan of Care End Date 04/29/19 Next Visit Focus/Plan Next Note Type Treatment Note Next Visit Plan cont body blade ex. review HEP . serratus punches.
--- NOTE | 2019-03-10 18:07 | PT.OTN ---
Current Diagnoses Spinal stenosis, cervical region (03/10/19) Abnormal posture (03/10/19) Weakness (03/10/19) Physical Therapy Treatment Note PT-OP-A Visit Information Start: 12/30/18 09:09 Freq: Status: Active Protocol: Document 03/10/19 09:00 AR (Rec: 03/10/19 10:23 AR [id number]) Out-Patient Physical Therapy Visit Information Visit Information Visit Type Treatment Note Visit Start Time 09:00 Visit Stop Time 09:55 Total Visit Minutes 55 Visit Number 2/ Number of ACETONE RECOVERY WORKER Visits 0 PT-OP-B Current Condition Start: 12/30/18 09:09 Freq: Status: Active Protocol: Document 12/30/18 11:15 [facility] (Rec: 12/30/18 12:09 [facility] [id number]) Current Condition History of Current Condition Onset Date 11/27/18 Current Complaints neck pain post surgery History of Current Condition Pt reports he had a C5-6 ant cervical discectomy w/ arthrodesis w/ant cervical plate on11/27/18 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 Pt has nott been able to work since Jul. Pt is allowed to go on long walks and hikes Treatment Goals Patient/Caregiver Goals Return to work moy, build back up UE strength PT-OP-C Subjective Start: 12/30/18 09:09 Freq: Status: Active Protocol: Document 03/10/19 09:00 AR (Rec: 03/10/19 10:23 AR [id number]) OP-PT Subjective Patient Comments Patient Comments Pt reports he has had a headache for the past 3-4 days that is still hanging on today. He reports it is on the anterior left side of his head and in suboccipital region. He was still able to go to yoga and ride the bike last week, even with headache. He noted that he recently increased the weight for some of his gym exercises, which he believes may be related to the headache. He has a doctor' s appointment this afternoon. PT-OP-F Manual Assessment Start: 12/30/18 09:09 Freq: Status: Active Protocol: Document 12/30/18 11:15 [facility] (Rec: 12/30/18 14:08 [facility] [id number]) Manual Assessments Soft Tissue Assessment Soft Tissue Mobility Assessment tightness along scar, UT, LS, cervical paraspinals, scalenes & SCM B PT-OP-J Posture/Palpation/Skin Start: 12/30/18 09:09 Freq: Status: Active Protocol: Document 02/27/19 08:15 [facility] (Rec: 02/27/19 08:33 [facility] [id number]) Posture Evaluation [facility] Postural Classification System Elbow Flexion Test 2 PT-OP-K Range of Motion Start: 12/30/18 09:09 Freq: Status: Active Protocol: Document 02/27/19 08:15 [facility] (Rec: 02/27/19 08:33 [facility] [id number]) Cervical Spine Range of Motion Cervical Spine Active Degrees Testing Position Sitting Flexion 52 Extension 42 Rotation Left 56 Rotation Right 42 Lateral Flexion Left 40 Lateral Flexion Right 35 PT-OP-L Special Tests Start: 12/30/18 09:09 Freq: Status: Active Protocol: Document 12/30/18 11:15 [facility] (Rec: 12/30/18 12:09 [facility] [id number]) Special Tests Cervical Spine Special Tests Shoulder Abduction Test Test Results about 110 B Alar Ligament Test Results neg Neural Special Tests- Upper Body Radial Nerve Tension Test Results neg B Median Nerve Tension Test Results Neg B Ulnar Nerve Tension Test Results neg B PT-OP-M Strength Start: 12/30/18 09:09 Freq: Status: Active Protocol: Document 02/27/19 08:15 [facility] (Rec: 02/27/19 08:33 [facility] [id number]) Shoulder Strength Shoulder Manual Muscle Testing Right Flexion 4 Good Extension 5 Normal Abduction (C5) 4 Good External Rotation 4 Good Internal Rotation 4+ Good+ Left Flexion 4 Good Extension 4+ Good+ External Rotation 4 Good Internal Rotation 5 Normal Elbow/Forearm Strength Elbow and Forearm Manual Muscle Testing Right Flexion (C6) 4+ Good+ Extension (C7) 4 Good Pronation 4- Good- Supination 4+ Good+ Left Flexion (C6) 4 Good Extension (C7) 4 Good Pronation 4- Good- Supination 4+ Good+ Wrist Strength Wrist Manual Muscle Testing Right Flexion (C7) 5 Normal Left Flexion (C7) 4+ Good+ Hand Fish Roe Processor/Pinch Strength Hand Strength Right Fish Roe Processor (lbs) 82 Left Fish Roe Processor (lbs) 80 Comments old dynamometer was sent in shortly after eval and was reading 10% too high when calibrated so new dynometer used today PT-OP-Q Treatments Start: 12/30/18 09:09 Freq: Status: Active Protocol: Document 03/10/19 09:00 AR (Rec: 03/10/19 10:23 AR [id number]) Therapeutic Exercises Sitting Exercises bicep curls Sitting Exercise Name 3 way Side bilateral Resistance 4# Equipment Used dumbbells Reps/Minutes 10 ea Manual Therapy Treatment Soft Tissue Mobilization UT, scalenes Body Location R UT, scalenes Mobilization Type Myofascial Release,Strumming, Sustained Pressure Intensity/Depth Moderate Body Position Supine Comments pt very tender to palpation, STM used as pt was too tender with 1st rib mob SCM Body Location B SCM, promixal attachment Mobilization Type Strumming,Sustained Pressure Intensity/Depth Moderate Body Position Supine Comments pt very guarded today SOR Body Location SOR Intensity/Depth Moderate Body Position Supine Comments with gentle chin tucks Joint Mobilizations 1st rib Joint R 1st rib (ant), L 1st rib ( post) Body Position Supine Comments pt was very guarded on R, STM used as he was too tender with 1st rib PA. Self-Care/Home Management Treatment Education Other Education blood pressure was taken after pt reports of RAMOS. BP was 132/ 96 and pt was encouraged [facility]-OP-R Modalities Start: 12/30/18 09:09 Freq: Status: Active Protocol: Document 03/10/19 09:00 AR (Rec: 03/10/19 10:23 AR [email or web address]) Hot Pack/Cold Pack Treatment Hot Pack Location upper thoracic & C/S Patient Position Supine Treatment Duration (minutes) 10 PT-OP-T Assessment and Plan Start: 12/30/18 09:09 Freq: Status: Active Protocol: Document 03/10/19 09:00 AR (Rec: 03/10/19 10:23 AR [id number]) Physical Therapy Assessment Goals ROM Assisted Goal (LTG) Pt will have WNL cervical ROM in order to allow him to do typical daily activities like reading, driving, looking up without pain. 02/27/19: Pt near normal into flexion. nearly doubled ROM in all other directions except R rotation. LTG Duration 04/29/2019 strenght Short Term Goal (STG) Pt will be indep with HEP STG Duration goal met Personal Property Assessor Goal (LTG) Pt will have 5/5 UE strength & EFT in order to show improved stability 02/27/19: progress in shoulder strength. weakness with pronation. 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 02/27/19: not met. Pt has not been cleared to return to work . LTG Duration 04/29/2019 NDI Short Term Goal (STG) Pt will have score of 10/50 in order to show improved functional ability. 02/27/19: not met, NDI score 16 /50 STG Duration 01/30/19 Assisted Goal (LTG) Pt will have score of no greater than 2/50 in order to show good functional ability 02/27/19: not met, NDI score 16 /50 LTG Duration 04/29/2019 Assessment Summary Assessment Pt presents with 1st rib hypomobility bilaterally, elevation of R anteriorly and elevation of L posteriorly. Headaches may be d/t rib hypomobility as well as C1/C2 dysfunction, as pt describes pain the that sensory distribution. Soft tissue around C1/C2 were addressed manually as were 1st ribs. Pt was also educated on addressing BP with his docotor at appointment this afternoon . Physical Therapy Plan Frequency and Duration Frequency of Treatment 2x/Week Duration of Treatment 2 months Plan of Care Start Date 02/27/19 Plan of Care End Date 04/29/19 Next Visit Focus/Plan Next Note Type Treatment Note Next Visit Plan progress exercises as tolerated. continue to address manual restrictions as necessary. 1st rib MET. supine serratus punches, review wall push up form, squat with shoulder flexion w weight, T/S mobility.
--- NOTE | 2019-03-12 14:21 | PT.OTN ---
Current Diagnoses Spinal stenosis, cervical region (03/12/19) Abnormal posture (03/12/19) Weakness (03/12/19) Physical Therapy Treatment Note PT-OP-A Visit Information Start: 12/30/18 09:09 Freq: Status: Active Protocol: Document 03/12/19 11:31 AR (Rec: 03/12/19 11:49 AR [id number]) Out-Patient Physical Therapy Visit Information Visit Information Visit Type Treatment Note Visit Start Time 09:00 Visit Stop Time 09:43 Total Visit Minutes 43 Visit Number 3 Number of MAIL CLERKS SUPERVISOR Visits 0 PT-OP-B Current Condition Start: 12/30/18 09:09 Freq: Status: Active Protocol: Document 12/30/18 11:15 LR (Rec: 12/30/18 12:09 LR [id number]) Current Condition History of Current Condition Onset Date 11/27/18 Current Complaints neck pain post surgery History of Current Condition Pt reports he had a C5-6 ant cervical discectomy w/ arthrodesis w/ant cervical plate on11/27/18 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 Pt has nott been able to work since Jul. Pt is allowed to go on long walks and hikes Treatment Goals Patient/Caregiver Goals Return to work moy, build back up UE strength PT-OP-C Subjective Start: 12/30/18 09:09 Freq: Status: Active Protocol: Document 03/12/19 11:31 AR (Rec: 03/12/19 11:49 AR [id number]) OP-PT Subjective Patient Comments Patient Comments Pt no longer has a headache. He was able to inc the number of reps of his kettle ohara exercises at the gym, but has decreased the weight of them. PT-OP-F Manual Assessment Start: 12/30/18 09:09 Freq: Status: Active Protocol: Document 12/30/18 11:15 LR (Rec: 12/30/18 14:08 LR [id number]) Manual Assessments Soft Tissue Assessment Soft Tissue Mobility Assessment tightness along scar, UT, LS, cervical paraspinals, scalenes & SCM B PT-OP-J Posture/Palpation/Skin Start: 12/30/18 09:09 Freq: Status: Active Protocol: Document 02/27/19 08:15 LR (Rec: 02/27/19 08:33 LRH [id number]) Posture Evaluation [facility] Postural Classification System Elbow Flexion Test 2 PT-OP-K Range of Motion Start: 12/30/18 09:09 Freq: Status: Active Protocol: Document 02/27/19 08:15 [facility] (Rec: 02/27/19 08:33 [facility] [id number]) Cervical Spine Range of Motion Cervical Spine Active Degrees Testing Position Sitting Flexion 52 Extension 42 Rotation Left 56 Rotation Right 42 Lateral Flexion Left 40 Lateral Flexion Right 35 PT-OP-L Special Tests Start: 12/30/18 09:09 Freq: Status: Active Protocol: Document 12/30/18 11:15 [facility] (Rec: 12/30/18 12:09 [facility] [id number]) Special Tests Cervical Spine Special Tests Shoulder Abduction Test Test Results about 110 B Alar Ligament Test Results neg Neural Special Tests- Upper Body Radial Nerve Tension Test Results neg B Median Nerve Tension Test Results Neg B Ulnar Nerve Tension Test Results neg B PT-OP-M Strength Start: 12/30/18 09:09 Freq: Status: Active Protocol: Document 02/27/19 08:15 [facility] (Rec: 02/27/19 08:33 [facility] [id number]) Shoulder Strength Shoulder Manual Muscle Testing Right Flexion 4 Good Extension 5 Normal Abduction (C5) 4 Good External Rotation 4 Good Internal Rotation 4+ Good+ Left Flexion 4 Good Extension 4+ Good+ External Rotation 4 Good Internal Rotation 5 Normal Elbow/Forearm Strength Elbow and Forearm Manual Muscle Testing Right Flexion (C6) 4+ Good+ Extension (C7) 4 Good Pronation 4- Good- Supination 4+ Good+ Left Flexion (C6) 4 Good Extension (C7) 4 Good Pronation 4- Good- Supination 4+ Good+ Wrist Strength Wrist Manual Muscle Testing Right Flexion (C7) 5 Normal Left Flexion (C7) 4+ Good+ Hand Staff Registered Nurse/Pinch Strength Hand Strength Right Staff Registered Nurse (lbs) 82 Left Staff Registered Nurse (lbs) 80 Comments old dynamometer was sent in shortly after eval and was reading 10% too high when calibrated so new dynometer used today PT-OP-Q Treatments Start: 12/30/18 09:09 Freq: Status: Active Protocol: Document 03/12/19 11:31 AR (Rec: 03/12/19 11:49 AR [id number]) Therapeutic Exercises Supine Exercises serratus punches Supine Exercise Name serratus punches Side bilateral Resistance none Reps/Minutes 10 ea Sitting Exercises abd->90/90ER Sitting Exercise Name 90/90 ER Side bilateral Resistance 2# Equipment Used dumbbells Reps/Minutes 2x10 reps wrist extension Sitting Exercise Name wrist extension Side bilateral Resistance 3.3# Equipment Used round weights Reps/Minutes 2x8 reps Standing Exercises squat with T/S ext Standing Exercise Name bar above head, facilitating T /S ext Side bilateral Resistance none Equipment Used red bar Reps/Minutes 10 reps Comments added to HEP squat w weight Standing Exercise Name hold squat w shoulder flexion to 90 deg Side bilateral Resistance 7# Equipment Used dumbbell Reps/Minutes 10 reps Comments pt educated to use both hands on weight, he had slight rotation otherwise wall push ups Standing Exercise Name wall push ups Reps/Minutes 10 at wall, 4 at table (45 deg inc) Comments was challenged by push ups at table lunge with body blade Standing Exercise Name shoulder abd Side bilateral Equipment Used small size body blade Reps/Minutes 10 ea squat with body blade Standing Exercise Name shoulder flexion Side bilateral Equipment Used small size body blade Reps/Minutes 10 reps Comments pt fatigued quickly d/t quads Manual Therapy Treatment Soft Tissue Mobilization Pectorals Body Location major & minor, proximal biceps Mobilization Type Rolling,Strumming,Sustained Pressure Intensity/Depth Moderate Body Position Supine Comments shoulder at 90/90ER. pt too tender w contract/relax. UT, scalenes Body Location R UT Mobilization Type Sustained Pressure Intensity/Depth Moderate Body Position Supine Comments pt very tender to palpation PT-OP-R Modalities Start: 12/30/18 09:09 Freq: Status: Active Protocol: Document 03/10/19 09:00 AR (Rec: 03/10/19 10:23 AR [id number]) Hot Pack/Cold Pack Treatment Hot Pack Location upper thoracic & C/S Patient Position Supine Treatment Duration (minutes) 10 PT-OP-T Assessment and Plan Start: 12/30/18 09:09 Freq: Status: Active Protocol: Document 03/12/19 11:31 AR (Rec: 03/12/19 11:49 AR [id number]) Physical Therapy Assessment Goals ROM Ship Carpenter Goal (LTG) Pt will have WNL cervical ROM in order to allow him to do typical daily activities like reading, driving, looking up without pain. 02/27/19: Pt near normal into flexion. nearly doubled ROM in all other directions except R rotation. LTG Duration 04/29/2019 strenght Short Term Goal (STG) Pt will be indep with HEP STG Duration goal met Group Home Goal (LTG) Pt will have 5/5 UE strength & EFT in order to show improved stability 02/27/19: progress in shoulder strength. weakness with pronation. 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 02/27/19: not met. Pt has not been cleared to return to work . LTG Duration 04/29/2019 NDI Short Term Goal (STG) Pt will have score of 10/50 in order to show improved functional ability. 02/27/19: not met, NDI score 16 /50 STG Duration 01/30/19 Ship Carpenter Goal (LTG) Pt will have score of no greater than 2/50 in order to show good functional ability 02/27/19: not met, NDI score 16 /50 LTG Duration 04/29/2019 Assessment Summary Assessment Pt was very challenged by squat with T/S ext today and was encouraged to work on it at home. Pt was discouraged about how slowly he seems to be progressing, but he was reminded of the strength gains he has made recently. Pt is still limited by fatigue, but has been able to inc reps at gym w/o issues. Physical Therapy Plan Frequency and Duration Frequency of Treatment 2x/Week Duration of Treatment 2 months Plan of Care Start Date 02/27/19 Plan of Care End Date 04/29/19 Next Visit Focus/Plan Next Note Type Treatment Note Next Visit Plan cont to progress squat, lunge exercises with weight. encourage pt to cont wrist ext and biceps strengthening at home as well as pectoral stretch at door or in bed.
--- NOTE | 2019-03-18 13:04 | PT.OTN ---
Current Diagnoses Spinal stenosis, cervical region (03/18/19) Abnormal posture (03/18/19) Weakness (03/18/19) Physical Therapy Treatment Note PT-OP-A Visit Information Start: 12/30/18 09:09 Freq: Status: Active Protocol: Document 03/18/19 09:00 AR (Rec: 03/18/19 10:17 AR [id number]) Out-Patient Physical Therapy Visit Information Visit Information Visit Type Treatment Note Visit Start Time 09:05 Visit Stop Time 09:55 Total Visit Minutes 50 Visit Number 10/11 Number of OBSTETRICIAN GYNECOLOGIST Visits 0 PT-OP-B Current Condition Start: 12/30/18 09:09 Freq: Status: Active Protocol: Document 12/30/18 11:15 [facility] (Rec: 12/30/18 12:09 [facility] [id number]) Current Condition History of Current Condition Onset Date 11/27/18 Current Complaints neck pain post surgery History of Current Condition Pt reports he had a C5-6 ant cervical discectomy w/ arthrodesis w/ant cervical plate on11/27/18 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 Pt has nott been able to work since Jul. Pt is allowed to go on long walks and hikes Treatment Goals Patient/Caregiver Goals Return to work moy, build back up UE strength PT-OP-C Subjective Start: 12/30/18 09:09 Freq: Status: Active Protocol: Document 03/18/19 09:00 AR (Rec: 03/18/19 10:17 AR [id number]) OP-PT Subjective Patient Comments Patient Comments Pt is still having difficulty increase repetitions of strength training exercises at the gym. He reports a lot of anxiety about potentially needing to change careers if he is unable to return to duty . He mentioned that this has been affecting his sleep and he often wakes up at 3am and is unable to get back to sleep . PT-OP-F Manual Assessment Start: 12/30/18 09:09 Freq: Status: Active Protocol: Document 12/30/18 11:15 [facility] (Rec: 12/30/18 14:08 [facility] [id number]) Manual Assessments Soft Tissue Assessment Soft Tissue Mobility Assessment tightness along scar, UT, LS, cervical paraspinals, scalenes & SCM B PT-OP-J Posture/Palpation/Skin Start: 12/30/18 09:09 Freq: Status: Active Protocol: Document 02/27/19 08:15 [facility] (Rec: 02/27/19 08:33 [facility] [id number]) Posture Evaluation [facility] Postural Classification System Elbow Flexion Test 2 PT-OP-K Range of Motion Start: 12/30/18 09:09 Freq: Status: Active Protocol: Document 02/27/19 08:15 [facility] (Rec: 02/27/19 08:33 [facility] [id number]) Cervical Spine Range of Motion Cervical Spine Active Degrees Testing Position Sitting Flexion 52 Extension 42 Rotation Left 56 Rotation Right 42 Lateral Flexion Left 40 Lateral Flexion Right 35 PT-OP-L Special Tests Start: 12/30/18 09:09 Freq: Status: Active Protocol: Document 12/30/18 11:15 [facility] (Rec: 12/30/18 12:09 [facility] [id number]) Special Tests Cervical Spine Special Tests Shoulder Abduction Test Test Results about 110 B Alar Ligament Test Results neg Neural Special Tests- Upper Body Radial Nerve Tension Test Results neg B Median Nerve Tension Test Results Neg B Ulnar Nerve Tension Test Results neg B PT-OP-M Strength Start: 12/30/18 09:09 Freq: Status: Active Protocol: Document 02/27/19 08:15 [facility] (Rec: 02/27/19 08:33 [facility] [id number]) Shoulder Strength Shoulder Manual Muscle Testing Right Flexion 4 Good Extension 5 Normal Abduction (C5) 4 Good External Rotation 4 Good Internal Rotation 4+ Good+ Left Flexion 4 Good Extension 4+ Good+ External Rotation 4 Good Internal Rotation 5 Normal Elbow/Forearm Strength Elbow and Forearm Manual Muscle Testing Right Flexion (C6) 4+ Good+ Extension (C7) 4 Good Pronation 4- Good- Supination 4+ Good+ Left Flexion (C6) 4 Good Extension (C7) 4 Good Pronation 4- Good- Supination 4+ Good+ Wrist Strength Wrist Manual Muscle Testing Right Flexion (C7) 5 Normal Left Flexion (C7) 4+ Good+ Hand Dna Sequencing Associate/Pinch Strength Hand Strength Right Dna Sequencing Associate (lbs) 82 Left Dna Sequencing Associate (lbs) 80 Comments old dynamometer was sent in shortly after eval and was reading 10% too high when calibrated so new dynometer used today PT-OP-Q Treatments Start: 12/30/18 09:09 Freq: Status: Active Protocol: Document 03/18/19 09:00 AR (Rec: 03/18/19 10:17 AR [id number]) Therapeutic Exercises Supine Exercises T/S ext over foam roll Supine Exercise Name T/S ext over foam roll w pillow and head support Equipment Used knee bolster & pillow to support head, pillow on top of foam roller Reps/Minutes 3 min hold Comments with deep breathing foam roll Supine Exercise Name // to spine. w shoulder flex, abd, 90/90 ER Side bilateral Reps/Minutes 15 reps ea Sitting Exercises bicep curls Sitting Exercise Name 3 way Side bilateral Resistance 3.3# Equipment Used round weights Reps/Minutes 10 ea Comments reviewed from HEP wrist extension Sitting Exercise Name wrist extension Side bilateral Resistance 3.3# Equipment Used round weights Reps/Minutes 10 reps Comments reviewed from HEP Standing Exercises squat with T/S ext Standing Exercise Name bar above head, facilitating T /S ext Side bilateral Resistance none Equipment Used red bar Reps/Minutes 15 reps Manual Therapy Treatment Soft Tissue Mobilization UT, scalenes Body Location R UT, scalenes Mobilization Type Sustained Pressure Intensity/Depth Moderate Body Position Supine SCM Body Location B SCM, promixal attachment Mobilization Type Strumming,Sustained Pressure Intensity/Depth Moderate Body Position Supine cervical paraspinals Body Location c/s paraspinals Mobilization Type Rolling,Sustained Pressure Intensity/Depth Moderate Body Position Supine PT-OP-R Modalities Start: 12/30/18 09:09 Freq: Status: Active Protocol: Document 03/18/19 09:00 AR (Rec: 03/18/19 11:57 AR [id number]) Hot Pack/Cold Pack Treatment Hot Pack Location upper thoracic & C/S Patient Position Hooklying Treatment Duration (minutes) 10 PT-OP-T Assessment and Plan Start: 12/30/18 09:09 Freq: Status: Active Protocol: Document 03/18/19 09:00 AR (Rec: 03/18/19 10:17 AR [email or web address]) Physical Therapy Assessment Goals ROM Half-Way Goal (LTG) Pt will have WNL cervical ROM in order to allow him to do typical daily activities like reading, driving, looking up without pain. 02/27/19: Pt near normal into flexion. nearly doubled ROM in all other directions except R rotation. LTG Duration 04/29/2019 strenght Short Term Goal (STG) Pt will be indep with HEP STG Duration goal met Half-Way Goal (LTG) Pt will have 5/5 UE strength & EFT in order to show improved stability 02/27/19: progress in shoulder strength. weakness with pronation. 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 02/27/19: not met. Pt has not been cleared to return to work . LTG Duration 04/29/2019 NDI Short Term Goal (STG) Pt will have score of 10/50 in order to show improved functional ability. 02/27/19: not met, NDI score 16 /50 STG Duration 01/30/19 Half-Way Goal (LTG) Pt will have score of no greater than 2/50 in order to show good functional ability 02/27/19: not met, NDI score 16 /50 LTG Duration 04/29/2019 Assessment Summary Assessment Pt reported a large stretch with T/S ext foam roll position but was able to demonstrate overhead squat with better form after stretching. Pt was educated on the effect of alcohol affecting sleep cycle, as he mentioned sleep has been a problem recently. Pt was encouraged to continue strength training to improve upon strength deficits in order to be able to return to active duty. Physical Therapy Plan Next Visit Focus/Plan Next Note Type Treatment Note Next Visit Plan cont to progress squat, lunge exercises with weight or body blade. Address manual restrictions in T/S that may be limiting C/S motion. potentially discuss counseling with patient regarding anxiety surrounding returning to work.
--- NOTE | 2019-03-24 11:42 | PT.OTN ---
Current Diagnoses Spinal stenosis, cervical region (03/24/19) Abnormal posture (03/24/19) Weakness (03/24/19) Physical Therapy Treatment Note PT-OP-A Visit Information Start: 12/30/18 09:09 Freq: Status: Active Protocol: Document 03/24/19 09:10 [facility] (Rec: 03/24/19 11:41 [facility] [id number]) Out-Patient Physical Therapy Visit Information Visit Information Visit Type Treatment Note Visit Start Time 09:02 Visit Stop Time 09:52 Total Visit Minutes 50 Visit Number 11/10 Number of WATER PLUMBER Visits 0 PT-OP-B Current Condition Start: 12/30/18 09:09 Freq: Status: Active Protocol: Document 12/30/18 11:15 [facility] (Rec: 12/30/18 12:09 [facility] [id number]) Current Condition History of Current Condition Onset Date 11/27/18 Current Complaints neck pain post surgery History of Current Condition Pt reports he had a C5-6 ant cervical discectomy w/ arthrodesis w/ant cervical plate on11/27/18 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 Pt has nott been able to work since Jul. Pt is allowed to go on long walks and hikes Treatment Goals Patient/Caregiver Goals Return to work moy, build back up UE strength PT-OP-C Subjective Start: 12/30/18 09:09 Freq: Status: Active Protocol: Document 03/24/19 09:10 [facility] (Rec: 03/24/19 11:41 [facility] [id number]) OP-PT Subjective Patient Comments Patient Comments Pt reports his biggest compliant is entire body fatigue where he gets fatigued even after playing guitar or smaller things. PT-OP-F Manual Assessment Start: 12/30/18 09:09 Freq: Status: Active Protocol: Document 12/30/18 11:15 [facility] (Rec: 12/30/18 14:08 [facility] [id number]) Manual Assessments Soft Tissue Assessment Soft Tissue Mobility Assessment tightness along scar, UT, LS, cervical paraspinals, scalenes & SCM B PT-OP-J Posture/Palpation/Skin Start: 12/30/18 09:09 Freq: Status: Active Protocol: Document 02/27/19 08:15 [facility] (Rec: 02/27/19 08:33 [facility] [id number]) Posture Evaluation [facility] Postural Classification System Elbow Flexion Test 2 PT-OP-K Range of Motion Start: 12/30/18 09:09 Freq: Status: Active Protocol: Document 02/27/19 08:15 [facility] (Rec: 02/27/19 08:33 [facility] [id number]) Cervical Spine Range of Motion Cervical Spine Active Degrees Testing Position Sitting Flexion 52 Extension 42 Rotation Left 56 Rotation Right 42 Lateral Flexion Left 40 Lateral Flexion Right 35 PT-OP-L Special Tests Start: 12/30/18 09:09 Freq: Status: Active Protocol: Document 12/30/18 11:15 [facility] (Rec: 12/30/18 12:09 [facility] [id number]) Special Tests Cervical Spine Special Tests Shoulder Abduction Test Test Results about 110 B Alar Ligament Test Results neg Neural Special Tests- Upper Body Radial Nerve Tension Test Results neg B Median Nerve Tension Test Results Neg B Ulnar Nerve Tension Test Results neg B PT-OP-M Strength Start: 12/30/18 09:09 Freq: Status: Active Protocol: Document 02/27/19 08:15 [facility] (Rec: 02/27/19 08:33 [facility] [id number]) Shoulder Strength Shoulder Manual Muscle Testing Right Flexion 4 Good Extension 5 Normal Abduction (C5) 4 Good External Rotation 4 Good Internal Rotation 4+ Good+ Left Flexion 4 Good Extension 4+ Good+ External Rotation 4 Good Internal Rotation 5 Normal Elbow/Forearm Strength Elbow and Forearm Manual Muscle Testing Right Flexion (C6) 4+ Good+ Extension (C7) 4 Good Pronation 4- Good- Supination 4+ Good+ Left Flexion (C6) 4 Good Extension (C7) 4 Good Pronation 4- Good- Supination 4+ Good+ Wrist Strength Wrist Manual Muscle Testing Right Flexion (C7) 5 Normal Left Flexion (C7) 4+ Good+ 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 Strength Hand Strength Right Warehouse Shipping Supervisor (lbs) 82 Left Warehouse Shipping Supervisor (lbs) 80 Comments old dynamometer was sent in shortly after eval and was reading 10% too high when calibrated so new dynometer used today PT-OP-Q Treatments Start: 12/30/18 09:09 Freq: Status: Active Protocol: Document 03/24/19 09:10 [facility] (Rec: 03/24/19 11:41 [facility] [id number]) Therapeutic Exercises Prone Exercises plank Prone Exercise Name hands & feet then forearms & feet Reps/Minutes 25 sec; 15 sec Standing Exercises rotation Standing Exercise Name IR & ER Side bilateral Equipment Used L3, L2 Reps/Minutes 12 shoulder abduction Side bilateral Equipment Used L2 Reps/Minutes 10 wall posture Standing Exercise Name w/90/90 ER Side bilateral Reps/Minutes 12 Manual Therapy Treatment Soft Tissue Mobilization SCM Body Location R>L SCM & scalenes Mobilization Type Strumming,Sustained Pressure Intensity/Depth Moderate Body Position Supine Joint Mobilizations SC Joint R Direction inf FM AC Joint R Direction ventral FM 1st rib Joint R Direction inf glide FM PT-OP-R Modalities Start: 12/30/18 09:09 Freq: Status: Active Protocol: Document 03/24/19 09:10 [facility] (Rec: 03/24/19 11:41 [facility] [id number]) Hot Pack/Cold Pack Treatment Hot Pack Location upper thoracic & C/S Patient Position Hooklying Treatment Duration (minutes) 10 PT-OP-T Assessment and Plan Start: 12/30/18 09:09 Freq: Status: Active Protocol: Document 03/24/19 09:10 [facility] (Rec: 03/24/19 11:41 [facility] [id number]) Physical Therapy Assessment Goals ROM Nursing Home Goal (LTG) Pt will have WNL cervical ROM in order to allow him to do typical daily activities like reading, driving, looking up without pain. 02/27/19: Pt near normal into flexion. nearly doubled ROM in all other directions except R rotation. LTG Duration 04/29/2019 strenght Short Term Goal (STG) Pt will be indep with HEP STG Duration goal met Wire Tinner Goal (LTG) Pt will have 5/5 UE strength & EFT in order to show improved stability 02/27/19: progress in shoulder strength. weakness with pronation. 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 02/27/19: not met. Pt has not been cleared to return to work . LTG Duration 04/29/2019 NDI Short Term Goal (STG) Pt will have score of 10/50 in order to show improved functional ability. 02/27/19: not met, NDI score 16 /50 STG Duration 01/30/19 Wire Tinner Goal (LTG) Pt will have score of no greater than 2/50 in order to show good functional ability 02/27/19: not met, NDI score 16 /50 LTG Duration 04/29/2019 Assessment Summary Assessment After doing quick asssessment of mm strength, pt had most weakness demonstrated with abd , ER & IR of shoulder so given exercises to focus on this. He was able to maintain plank for short time but required ceuing throughout for his form . Significant tightness and tenderness with restriction of movement on R side. H was edcuated on stretching these mm. Re: his complaints of overall feeling of fatigue, pt encouraged to discuss with PCP since this is not only associated with UE & neck region. Physical Therapy Plan Frequency and Duration Frequency of Treatment 2x/Week Duration of Treatment 2 months Plan of Care Start Date 02/27/19 Plan of Care End Date 04/29/19 Next Visit Focus/Plan Next Note Type Progress Note Next Visit Plan body blade, cont to work on cervical restrictions, address upper cervical mobility
--- NOTE | 2019-03-26 18:43 | PT.OTN ---
Current Diagnoses Spinal stenosis, cervical region (03/26/19) Abnormal posture (03/26/19) Weakness (03/26/19) Physical Therapy Treatment Note PT-OP-A Visit Information Start: 12/30/18 09:09 Freq: Status: Active Protocol: Document 03/26/19 09:00 [facility] (Rec: 03/26/19 09:11 [facility] [id number]) Out-Patient Physical Therapy Visit Information Visit Information Visit Type Treatment Note Visit Start Time 09:01 Visit Stop Time 09:42 Total Visit Minutes 41 Visit Number 12/11 PT-OP-B Current Condition Start: 12/30/18 09:09 Freq: Status: Active Protocol: Document 12/30/18 11:15 [facility] (Rec: 12/30/18 12:09 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 Pt has nott been able to work since Jul. Pt is allowed to go on long walks and hikes Treatment Goals Patient/Caregiver Goals Return to work moy, build back up UE strength PT-OP-C Subjective Start: 12/30/18 09:09 Freq: Status: Active Protocol: Document 03/26/19 09:00 [facility] (Rec: 03/26/19 09:27 [facility] [id number]) OP-PT Subjective Patient Comments Patient Comments Pt reports he hasn't been able to do as much strengthening with his mom visiting PT-OP-F Manual Assessment Start: 12/30/18 09:09 Freq: Status: Active Protocol: Document 12/30/18 11:15 [facility] (Rec: 12/30/18 14:08 [facility] [id number]) Manual Assessments Soft Tissue Assessment Soft Tissue Mobility Assessment tightness along scar, UT, LS, cervical paraspinals, scalenes & SCM B PT-OP-J Posture/Palpation/Skin Start: 12/30/18 09:09 Freq: Status: Active Protocol: Document 02/27/19 08:15 [facility] (Rec: 02/27/19 08:33 [facility] [id number]) Posture Evaluation [facility] Postural Classification System Elbow Flexion Test 2 PT-OP-K Range of Motion Start: 12/30/18 09:09 Freq: Status: Active Protocol: Document 03/26/19 09:00 [facility] (Rec: 03/26/19 09:27 [facility] [id number]) Cervical Spine Range of Motion Cervical Spine Active Degrees Flexion 64 Extension 30 Rotation Left 64 Rotation Right 67 Lateral Flexion Left 45 Lateral Flexion Right 40 ROM Limitations Soft Tissue Tightness,Pain PT-OP-L Special Tests Start: 12/30/18 09:09 Freq: Status: Active Protocol: Document 12/30/18 11:15 [facility] (Rec: 12/30/18 12:09 [facility] [id number]) Special Tests Cervical Spine Special Tests Shoulder Abduction Test Test Results about 110 B Alar Ligament Test Results neg Neural Special Tests- Upper Body Radial Nerve Tension Test Results neg B Median Nerve Tension Test Results Neg B Ulnar Nerve Tension Test Results neg B PT-OP-M Strength Start: 12/30/18 09:09 Freq: Status: Active Protocol: Document 03/26/19 09:00 [facility] (Rec: 03/26/19 09:27 [facility] [id number]) Shoulder Strength Shoulder Manual Muscle Testing Right Flexion 5 Normal Extension 5 Normal Abduction (C5) 5 Normal External Rotation 4 Good Internal Rotation 4 Good Left Flexion 5 Normal Extension 5 Normal Abduction (C5) 5 Normal External Rotation 4+ Good+ Internal Rotation 4+ Good+ Elbow/Forearm Strength Elbow and Forearm Manual Muscle Testing Right Flexion (C6) 4+ Good+ Extension (C7) 5 Normal Pronation 4+ Good+ Supination 5 Normal Left Flexion (C6) 4+ Good+ Extension (C7) 5 Normal Pronation 4 Good Supination 5 Normal Wrist Strength Wrist Manual Muscle Testing Right Flexion (C7) 4+ Good+ Extension (C6) 5 Normal Ulnar Deviation 5 Normal Radial Deviation 5 Normal Left Flexion (C7) 5 Normal Extension (C6) 5 Normal Ulnar Deviation 5 Normal Radial Deviation 4+ Good+ 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 (Rec: 03/26/19 09:11 [facility] [id number]) Therapeutic Exercises Standing Exercises rotation Standing Exercise Name B ER & IR Equipment Used L2, L3 Reps/Minutes 12 shoulder abduction Side bilateral Equipment Used L2 Reps/Minutes 10 flexion c habd Side bilateral Equipment Used L2 Reps/Minutes 10 Manual Therapy Treatment Soft Tissue Mobilization cervical paraspinals Body Location c spine Mobilization Type Rolling Intensity/Depth mod Body Position Supine SOR Body Location SOR Intensity/Depth mod Joint Mobilizations T/S w movement Joint T1-3 with ext Direction FM AP PT-OP-R Modalities Start: 12/30/18 09:09 Freq: Status: Active Protocol: Document 03/24/19 09:10 [facility] (Rec: 03/24/19 11:41 [facility] [id number]) Hot Pack/Cold Pack Treatment Hot Pack Location upper thoracic & C/S Patient Position Hooklying Treatment Duration (minutes) 10 PT-OP-T Assessment and Plan Start: 12/30/18 09:09 Freq: Status: Active Protocol: Document 03/26/19 09:00 [facility] (Rec: 03/26/19 09:11 [facility] [id number]) Physical Therapy Assessment Goals ROM Supervisor Powdered Metal Goal (LTG) Pt will have WNL cervical ROM in order to allow him to do typical daily activities like reading, driving, looking up without pain. 02/27/19: Pt near normal into flexion. nearly doubled ROM in all other directions except R rotation. 03/26-All WFL except ext LTG Duration 04/29/2019 strenght Short Term Goal (STG) Pt will be indep with HEP STG Duration goal met Supervisor Powdered Metal Goal (LTG) Pt will have 5/5 UE strength & EFT in order to show improved stability 02/27/19: progress in shoulder strength. weakness with pronation. 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 02/27/19: not met. Pt has not been cleared to return to work . 03/26-pt to see surgeon in next couple weeks, no clearance LTG Duration 04/29/2019 NDI Short Term Goal (STG) Pt will have score of 10/50 in order to show improved functional ability. 02/27/19: not met, NDI score 16 /50 STG Duration 04/01/19 M[facility] Goal (LTG) Pt will have score of no greater than 2/50 in order to show good functional ability 02/27/19: not met, NDI score 16 /50 LTG Duration 04/29/2019 Assessment Summary Assessment Pt is improving with strength and ROM at this time and has close to normal ROM except into ext. He is improving with UE and has exercises to work on areas that are still weak. He would benefit from cont PT to cont to address his currrent restrictions in order to progress him back to work. Physical Therapy Plan Frequency and Duration Frequency of Treatment 2x/Week Duration of Treatment 2 months Plan of Care Start Date 02/27/19 Plan of Care End Date 04/29/19 Next Visit Focus/Plan Next Note Type Treatment Note Next Visit Plan body blade, cont to work on upper thoracic & cervical restrictions limiting ext, upper cervical mobilty
--- NOTE | 2019-05-12 13:29 | PT.OTN ---
Current Diagnoses Spinal stenosis, cervical region (05/12/19) Abnormal posture (05/12/19) Weakness (05/12/19) Physical Therapy Treatment Note PT-OP-A Visit Information Start: 12/30/18 09:09 Freq: Status: Active Protocol: Document 05/12/19 10:24 [facility] (Rec: 05/12/19 13:28 [facility] [id number]) Out-Patient Physical Therapy Visit Information Visit Information Visit Type Progress Note Visit Start Time 10:32 Visit Stop Time 11:15 Total Visit Minutes 43 Visit Number 01/10 PT-OP-B Current Condition Start: 12/30/18 09:09 Freq: Status: Active Protocol: Document 12/30/18 11:15 [facility] (Rec: 12/30/18 12:09 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 Pt has nott been able to work since Jul. Pt is allowed to go on long walks and hikes Treatment Goals Patient/Caregiver Goals Return to work moy, build back up UE strength PT-OP-C Subjective Start: 12/30/18 09:09 Freq: Status: Active Protocol: Document 05/12/19 10:24 [facility] (Rec: 05/12/19 13:28 [facility] [id number]) OP-PT Subjective Patient Comments Patient Comments Pt reports MD wants him to return to PT. Notes his stamina is still dec. Working on thumb with hand PT PT-OP-F Manual Assessment Start: 12/30/18 09:09 Freq: Status: Active Protocol: Document 12/30/18 11:15 [facility] (Rec: 12/30/18 14:08 [facility] [id number]) Manual Assessments Soft Tissue Assessment Soft Tissue Mobility Assessment tightness along scar, UT, LS, cervical paraspinals, scalenes & SCM B PT-OP-J Posture/Palpation/Skin Start: 12/30/18 09:09 Freq: Status: Active Protocol: Document 02/27/19 08:15 [facility] (Rec: 02/27/19 08:33 [facility] [id number]) Posture Evaluation Mauri Postural Classification System Elbow Flexion Test 2 PT-OP-K Range of Motion Start: 12/30/18 09:09 Freq: Status: Active Protocol: Document 05/12/19 10:24 [facility] (Rec: 05/12/19 13:28 [facility] [id number]) Cervical Spine Range of Motion Cervical Spine Active Degrees Flexion 59 Extension 35 Rotation Left 54 Rotation Right 52 Lateral Flexion Left 38 Lateral Flexion Right 40 ROM Limitations Soft Tissue Tightness,Pain PT-OP-L Special Tests Start: 12/30/18 09:09 Freq: Status: Active Protocol: Document 12/30/18 11:15 [facility] (Rec: 12/30/18 12:09 [facility] [id number]) Special Tests Cervical Spine Special Tests Shoulder Abduction Test Test Results about 110 B Alar Ligament Test Results neg Neural Special Tests- Upper Body Radial Nerve Tension Test Results neg B Median Nerve Tension Test Results Neg B Ulnar Nerve Tension Test Results neg B PT-OP-M Strength Start: 12/30/18 09:09 Freq: Status: Active Protocol: Document 05/12/19 10:24 [facility] (Rec: 05/12/19 13:28 [facility] [id number]) Shoulder Strength Shoulder Manual Muscle Testing Right Flexion 4+ Good+ Extension 5 Normal Abduction (C5) 4 Good External Rotation 4+ Good+ Internal Rotation 4+ Good+ Comments EFT:2/5 Left Flexion 4+ Good+ Extension 4+ Good+ Abduction (C5) 4 Good External Rotation 4+ Good+ Internal Rotation 4+ Good+ Elbow/Forearm Strength Elbow and Forearm Manual Muscle Testing Right Flexion (C6) 4+ Good+ Extension (C7) 5 Normal Pronation 4+ Good+ Supination 5 Normal Left Flexion (C6) 4+ Good+ Extension (C7) 5 Normal Pronation 4 Good Supination 5 Normal Wrist Strength Wrist Manual Muscle Testing Right Flexion (C7) 4+ Good+ Extension (C6) 5 Normal Ulnar Deviation 5 Normal Radial Deviation 5 Normal Left Flexion (C7) 4+ Good+ Extension (C6) 5 Normal Ulnar Deviation 4+ Good+ Radial Deviation 5 Normal Hand Category Consultant/Pinch Strength Hand Strength Right Category Consultant (lbs) 105 Left Category Consultant (lbs) 95 PT-OP-Q Treatments Start: 12/30/18 09:09 Freq: Status: Active Protocol: Document 05/12/19 10:24 [facility] (Rec: 05/12/19 13:28 [facility] [id number]) Therapeutic Exercises Supine Exercises chin tucks and hold Supine Exercise Name axial elongation Manual Therapy Treatment Soft Tissue Mobilization UT, scalenes Body Location B Mobilization Type Sustained Pressure Intensity/Depth Moderate Body Position Supine SCM Body Location R>L SCM Mobilization Type Strumming,Sustained Pressure Intensity/Depth Moderate Body Position Supine cervical paraspinals Body Location c spine Mobilization Type Rolling Intensity/Depth mod Body Position Supine SOR Body Location SOR Intensity/Depth mod PT-OP-R Modalities Start: 12/30/18 09:09 Freq: Status: Active Protocol: Document 03/24/19 09:10 [facility] (Rec: 03/24/19 11:41 [facility] [id number]) Hot Pack/Cold Pack Treatment Hot Pack Location upper thoracic & C/S Patient Position Hooklying Treatment Duration (minutes) 10 PT-OP-T Assessment and Plan Start: 12/30/18 09:09 Freq: Status: Active Protocol: Document 05/12/19 10:24 [facility] (Rec: 05/12/19 13:28 [facility] [id number]) Physical Therapy Assessment Goals ROM Senior Care Goal (LTG) Pt will have WNL cervical ROM in order to allow him to do typical daily activities like reading, driving, looking up without pain. 02/27/19: Pt near normal into flexion. nearly doubled ROM in all other directions except R rotation. 03/26-All WFL except ext LTG Duration 04/29/2019 strenght Short Term Goal (STG) Pt will be indep with HEP STG Duration goal met Senior Care Goal (LTG) Pt will have 5/5 UE strength & EFT in order to show improved stability 02/27/19: progress in shoulder strength. weakness with pronation. 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 02/27/19: not met. Pt has not been cleared to return to work . 03/26-pt to see surgeon in next couple weeks, no clearance LTG Duration 04/29/2019 NDI Short Term Goal (STG) Pt will have score of 10/50 in order to show improved functional ability. 02/27/19: not met, NDI score 16 /50 STG Duration 04/01/19 Senior Care Goal (LTG) Pt will have score of no greater than 2/50 in order to show good functional ability 02/27/19: not met, NDI score 16 /50 LTG Duration 04/29/2019 Assessment Summary Assessment Pt has not attended PT for 1.5 months as he did amount of visits and instructed by MD and wanted to see MD before continueing. MD instructed pt to cont PT at that visit. There has not been much change attendant time that pt was attending PT and would benefit from cont PT to work on developing UE strength. He has limits in his muscular endurance which would limit him from returning to work and does demonstrate some strength deficits. Physical Therapy Plan Frequency and Duration Frequency of Treatment 1-2x/week Duration of Treatment 2 months Plan of Care Start Date 05/12/19 Plan of Care End Date 07/12/19 Therapeutic Interventions Therapeutic Interventions Home Exercise Program,Joint Mobilizations,Manual Therapy, Patient/Caregiver Education, Self-Care/Home Management,Soft Tissue Mobilization,Taping, Therapeutic Activities, Therapeutic Exercises Modalities Cold Pack/Ice Massage,Electric Stimulation,Hot Packs, Paraffin Bath,Ultrasound Next Visit Focus/Plan Next Note Type Treatment Note Next Visit Plan Work on HEP for UE that is okayed by hand therapist. Work on cervical stability exercises; look at T1-3 for rotation & ext, work on upper cervical spine
--- NOTE | 2019-05-12 13:30 | PT.OPPOC ---
Current Diagnoses Spinal stenosis, cervical region (05/12/19) Abnormal posture (05/12/19) Weakness (05/12/19) Visit Care Team Role Provider Type VALERY Antoine Primary Care Provider Non-Staff Specialty: Family Practice Address: [address] [place] [address], [address], [place], [address] Email: Ulices Duong MD Attending Provider Non-Staff Specialty: Medical Address: [address] [place] [address], [id number] Email: Plan Of Care PT-OP-T Assessment and Plan Start: 12/30/18 09:09 Freq: Status: Active Protocol: Document 05/12/19 10:24 [facility] (Rec: 05/12/19 13:28 [facility] [id number]) Physical Therapy Assessment Goals ROM Director Of Market Intelligence Goal (LTG) Pt will have WNL cervical ROM in order to allow him to do typical daily activities like reading, driving, looking up without pain. 02/27/19: Pt near normal into flexion. nearly doubled ROM in all other directions except R rotation. 03/26-All WFL except ext LTG Duration 07/12/19 strenght Short Term Goal (STG) Pt will be indep with HEP STG Duration goal met Director Of Market Intelligence Goal (LTG) Pt will have 5/5 UE strength & EFT in order to show improved stability 02/27/19: progress in shoulder strength. weakness with pronation. 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 02/27/19: not met. Pt has not been cleared to return to work . 03/26-pt to see surgeon in next couple weeks, no clearance 05/12-no clearance LTG Duration 07/12/19 NDI Short Term Goal (STG) Pt will have score of 10/50 in order to show improved functional ability. 02/27/19: not met, NDI score 16 /50 05/12-n/t STG Duration 06/01/20 Director Of Market Intelligence Goal (LTG) Pt will have score of no greater than 2/50 in order to show good functional ability 02/27/19: not met, NDI score 16 /50 LTG Duration 07/12/19 Assessment Summary Assessment Pt has not attended PT for 1.5 months as he did amount of visits and instructed by MD and wanted to see MD before continueing. MD instructed pt to cont PT at that visit. 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 He has limits in his muscular endurance which would limit him from returning to work and does demonstrate some strength deficits. Physical Therapy Plan Frequency and Duration Frequency of Treatment 1-2x/week Duration of Treatment 2 months Plan of Care Start Date 05/12/19 Plan of Care End Date 07/12/19 Therapeutic Interventions Therapeutic Interventions Home Exercise Program,Joint Mobilizations,Manual Therapy, Patient/Caregiver Education, Self-Care/Home Management,Soft Tissue Mobilization,Taping, Therapeutic Activities, Therapeutic Exercises Modalities Cold Pack/Ice Massage,Electric Stimulation,Hot Packs, Paraffin Bath,Ultrasound Next Visit Focus/Plan Next Note Type Treatment Note Next Visit Plan Work on HEP for UE that is okayed by hand therapist. Work on cervical stability exercises; look at T1-3 for rotation & ext, work on upper cervical spine Plan of Care Dates Plan of Care Start Date 05/12/19 Plan of Care End Date 07/12/19
--- NOTE | 2019-05-27 09:16 | PT.OTN ---
Current Diagnoses Spinal stenosis, cervical region (05/27/19) Abnormal posture (05/27/19) Weakness (05/27/19) Physical Therapy Treatment Note PT-OP-A Visit Information Start: 12/30/18 09:09 Freq: Status: Active Protocol: Document 05/27/19 09:03 [facility] (Rec: 05/27/19 09:13 [facility] [id number]) Out-Patient Physical Therapy Visit Information Visit Information Visit Type Treatment Note Visit Start Time 08:15 Visit Stop Time 09:00 Total Visit Minutes 45 Visit Number 02/10 Number of WELL TESTING OPERATOR Visits 0 PT-OP-B Current Condition Start: 12/30/18 09:09 Freq: Status: Active Protocol: Document 12/30/18 11:15 [facility] (Rec: 12/30/18 12:09 [facility] [id number]) Current Condition History of Current Condition Onset Date 11/27/18 Current Complaints neck pain post surgery History of Current Condition Pt reports he had a C5-6 ant cervical discectomy w/ arthrodesis w/ant cervical plate on11/27/18 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 Pt has nott been able to work since Jul. Pt is allowed to go on long walks and hikes Treatment Goals Patient/Caregiver Goals Return to work moy, build back up UE strength PT-OP-C Subjective Start: 12/30/18 09:09 Freq: Status: Active Protocol: Document 05/27/19 09:03 [facility] (Rec: 05/27/19 09:13 [facility] [id number]) OP-PT Subjective Patient Comments Patient Comments Pt reports he was sick all last week so he didn't do much . Patient Reported Progress Improving PT-OP-F Manual Assessment Start: 12/30/18 09:09 Freq: Status: Active Protocol: Document 12/30/18 11:15 [facility] (Rec: 12/30/18 14:08 [facility] [id number]) Manual Assessments Soft Tissue Assessment Soft Tissue Mobility Assessment tightness along scar, UT, LS, cervical paraspinals, scalenes & SCM B PT-OP-J Posture/Palpation/Skin Start: 12/30/18 09:09 Freq: Status: Active Protocol: Document 02/27/19 08:15 [facility] (Rec: 02/27/19 08:33 [facility] [id number]) Posture Evaluation [facility] Postural Classification System Elbow Flexion Test 2 PT-OP-K Range of Motion Start: 12/30/18 09:09 Freq: Status: Active Protocol: Document 05/12/19 10:24 [facility] (Rec: 05/12/19 13:28 [facility] [id number]) Cervical Spine Range of Motion Cervical Spine Active Degrees Flexion 59 Extension 35 Rotation Left 54 Rotation Right 52 Lateral Flexion Left 38 Lateral Flexion Right 40 ROM Limitations Soft Tissue Tightness,Pain PT-OP-L Special Tests Start: 12/30/18 09:09 Freq: Status: Active Protocol: Document 12/30/18 11:15 [facility] (Rec: 12/30/18 12:09 [facility] [id number]) Special Tests Cervical Spine Special Tests Shoulder Abduction Test Test Results about 110 B Alar Ligament Test Results neg Neural Special Tests- Upper Body Radial Nerve Tension Test Results neg B Median Nerve Tension Test Results Neg B Ulnar Nerve Tension Test Results neg B PT-OP-M Strength Start: 12/30/18 09:09 Freq: Status: Active Protocol: Document 05/12/19 10:24 [facility] (Rec: 05/12/19 13:28 [facility] [id number]) Shoulder Strength Shoulder Manual Muscle Testing Right Flexion 4+ Good+ Extension 5 Normal Abduction (C5) 4 Good External Rotation 4+ Good+ Internal Rotation 4+ Good+ Comments EFT:2/5 Left Flexion 4+ Good+ Extension 4+ Good+ Abduction (C5) 4 Good External Rotation 4+ Good+ Internal Rotation 4+ Good+ Elbow/Forearm Strength Elbow and Forearm Manual Muscle Testing Right Flexion (C6) 4+ Good+ Extension (C7) 5 Normal Pronation 4+ Good+ Supination 5 Normal Left Flexion (C6) 4+ Good+ Extension (C7) 5 Normal Pronation 4 Good Supination 5 Normal Wrist Strength Wrist Manual Muscle Testing Right Flexion (C7) 4+ Good+ Extension (C6) 5 Normal Ulnar Deviation 5 Normal Radial Deviation 5 Normal Left Flexion (C7) 4+ Good+ Extension (C6) 5 Normal Ulnar Deviation 4+ Good+ Radial Deviation 5 Normal Hand Senior Windows Systems Administrator/Pinch Strength Hand Strength Right Senior Windows Systems Administrator (lbs) 105 Left Senior Windows Systems Administrator (lbs) 95 PT-OP-Q Treatments Start: 12/30/18 09:09 Freq: Status: Active Protocol: Document 05/27/19 09:03 [facility] (Rec: 05/27/19 09:16 [facility] [id number]) Therapeutic Exercises Supine Exercises chin tucks and hold Supine Exercise Name axial elongation Reps/Minutes 5sec x5 Sidelying Exercises abd Side bilateral Equipment Used 1# Reps/Minutes 12 Standing Exercises rotation Standing Exercise Name B ER Side bilateral Equipment Used L1 Reps/Minutes 15 flexion c habd Side bilateral Equipment Used L1 Reps/Minutes 10 Manual Therapy Treatment Soft Tissue Mobilization T/S paraspinals Body Location R T1-4 Mobilization Type Rolling,Strumming Intensity/Depth Moderate Body Position Sitting SCM Body Location B Mobilization Type Rolling,Strumming Intensity/Depth Moderate Body Position Hooklying cervical paraspinals Body Location c spine Mobilization Type Rolling,Strumming Intensity/Depth Moderate Body Position Hooklying SOR Body Location SOR Intensity/Depth Moderate Body Position Hooklying Joint Mobilizations T/S w movement Joint T1-3 Direction L transverse glide FM w/cover position Body Position Sitting PT-OP-R Modalities Start: 12/30/18 09:09 Freq: Status: Active Protocol: Document 03/24/19 09:10 [facility] (Rec: 03/24/19 11:41 [facility] [id number]) Hot Pack/Cold Pack Treatment Hot Pack Location upper thoracic & C/S Patient Position Hooklying Treatment Duration (minutes) 10 PT-OP-T Assessment and Plan Start: 12/30/18 09:09 Freq: Status: Active Protocol: Document 05/27/19 09:03 [facility] (Rec: 05/27/19 09:13 [facility] [id number]) Physical Therapy Assessment Goals ROM Dividend Clerk Goal (LTG) Pt will have WNL cervical ROM in order to allow him to do typical daily activities like reading, driving, looking up without pain. 02/27/19: Pt near normal into flexion. nearly doubled ROM in all other directions except R rotation. 03/26-All WFL except ext LTG Duration 07/12/19 strenght Short Term Goal (STG) Pt will be indep with HEP STG Duration goal met Dividend Clerk Goal (LTG) Pt will have 5/5 UE strength & EFT in order to show improved stability 02/27/19: progress in shoulder strength. weakness with pronation. 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 02/27/19: not met. Pt has not been cleared to return to work . 03/26-pt to see surgeon in next couple weeks, no clearance 05/12-no clearance LTG Duration 07/12/19 NDI Short Term Goal (STG) Pt will have score of 10/50 in order to show improved functional ability. 02/27/19: not met, NDI score 16 /50 05/12-n/t STG Duration 06/01/20 [facility] Goal (LTG) Pt will have score of no greater than 2/50 in order to show good functional ability 02/27/19: not met, NDI score 16 /50 LTG Duration 07/12/19 Assessment Summary Assessment Pt was able to do exercises with fatigue but was able to use appropriate stabilizer muscles during exercises when cued for form. He cont ot have a lot of upper thoracic mobility limitations that limit his ability to rotate along with scar tissue anteriorly. With soft tissue work, passive rotation B improved to about 80% from about 60%. Physical Therapy Plan Frequency and Duration Frequency of Treatment 1-2x/week Duration of Treatment 2 months Plan of Care Start Date 05/12/19 Plan of Care End Date 07/12/19 Next Visit Focus/Plan Next Note Type Treatment Note Next Visit Plan Review HEP exercises for form, cont to work on upper thoracic mobility & STM to upper cervical spine region
--- NOTE | 2019-06-03 15:51 | PT.OTN ---
Current Diagnoses Spinal stenosis, cervical region (06/03/19) Abnormal posture (06/03/19) Weakness (06/03/19) Physical Therapy Treatment Note PT-OP-A Visit Information Start: 12/30/18 09:09 Freq: Status: Active Protocol: Document 06/03/19 11:16 [facility] (Rec: 06/03/19 12:47 [facility] [email or web address]) Out-Patient Physical Therapy Visit Information Visit Information Visit Type Treatment Note Visit Start Time 11:16 Visit Stop Time 12:13 Total Visit Minutes 57 Visit Number 03/13 Number of SEED TRUCKER Visits 0 PT-OP-B Current Condition Start: 12/30/18 09:09 Freq: Status: Active Protocol: Document 12/30/18 11:15 [facility] (Rec: 12/30/18 12:09 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 Pt has nott been able to work since Jul. Pt is allowed to go on long walks and hikes Treatment Goals Patient/Caregiver Goals Return to work moy, build back up UE strength PT-OP-C Subjective Start: 12/30/18 09:09 Freq: Status: Active Protocol: Document 06/03/19 11:16 [facility] (Rec: 06/03/19 12:47 [facility] [id number]) OP-PT Subjective Patient Comments Patient Comments pt reports that he has still been sick and that his cold has not been getting much better in the last 3 weeks that he has had it. He reports that he has been feeling increased fatigue with everyday activities that should not be causing him so much fatigue, which has been going on since his surgery. He has not been doing his HEP. PT-OP-F Manual Assessment Start: 12/30/18 09:09 Freq: Status: Active Protocol: Document 12/30/18 11:15 [facility] (Rec: 12/30/18 14:08 [facility] [id number]) Manual Assessments Soft Tissue Assessment Soft Tissue Mobility Assessment tightness along scar, UT, LS, cervical paraspinals, scalenes & SCM B PT-OP-J Posture/Palpation/Skin Start: 12/30/18 09:09 Freq: Status: Active Protocol: Document 02/27/19 08:15 [facility] (Rec: 02/27/19 08:33 [facility] [id number]) Posture Evaluation [facility] Postural Classification System Elbow Flexion Test 2 PT-OP-K Range of Motion Start: 12/30/18 09:09 Freq: Status: Active Protocol: Document 05/12/19 10:24 [facility] (Rec: 05/12/19 13:28 [facility] [id number]) Cervical Spine Range of Motion Cervical Spine Active Degrees Flexion 59 Extension 35 Rotation Left 54 Rotation Right 52 Lateral Flexion Left 38 Lateral Flexion Right 40 ROM Limitations Soft Tissue Tightness,Pain PT-OP-L Special Tests Start: 12/30/18 09:09 Freq: Status: Active Protocol: Document 12/30/18 11:15 [facility] (Rec: 12/30/18 12:09 [facility] [id number]) Special Tests Cervical Spine Special Tests Shoulder Abduction Test Test Results about 110 B Alar Ligament Test Results neg Neural Special Tests- Upper Body Radial Nerve Tension Test Results neg B Median Nerve Tension Test Results Neg B Ulnar Nerve Tension Test Results neg B PT-OP-M Strength Start: 12/30/18 09:09 Freq: Status: Active Protocol: Document 05/12/19 10:24 [facility] (Rec: 05/12/19 13:28 [facility] [id number]) Shoulder Strength Shoulder Manual Muscle Testing Right Flexion 4+ Good+ Extension 5 Normal Abduction (C5) 4 Good External Rotation 4+ Good+ Internal Rotation 4+ Good+ Comments EFT:2/5 Left Flexion 4+ Good+ Extension 4+ Good+ Abduction (C5) 4 Good External Rotation 4+ Good+ Internal Rotation 4+ Good+ Elbow/Forearm Strength Elbow and Forearm Manual Muscle Testing Right Flexion (C6) 4+ Good+ Extension (C7) 5 Normal Pronation 4+ Good+ Supination 5 Normal Left Flexion (C6) 4+ Good+ Extension (C7) 5 Normal Pronation 4 Good Supination 5 Normal Wrist Strength Wrist Manual Muscle Testing Right Flexion (C7) 4+ Good+ Extension (C6) 5 Normal Ulnar Deviation 5 Normal Radial Deviation 5 Normal Left Flexion (C7) 4+ Good+ Extension (C6) 5 Normal Ulnar Deviation 4+ Good+ Radial Deviation 5 Normal Hand Correctional Food Service Supervisor/Pinch Strength Hand Strength Right Correctional Food Service Supervisor (lbs) 105 Left Correctional Food Service Supervisor (lbs) 95 PT-OP-Q Treatments Start: 12/30/18 09:09 Freq: Status: Active Protocol: Document 06/03/19 11:16 [facility] (Rec: 06/03/19 12:47 [facility] [email or web address]) Therapeutic Exercises Supine Exercises serratus punches Supine Exercise Name serratus punches Side bilateral Resistance #2 chin tucks and hold Supine Exercise Name axial elongation Reps/Minutes 5sec x5 Comments with myofascial release of anterior neck/chest d/t report of discomfort Standing Exercises resisted rows Standing Exercise Name resisted rows/pulldowns Side bilateral Resistance L2 Comments progressed pt to L2 rotation Standing Exercise Name B ER Side bilateral Equipment Used L1 Reps/Minutes 15 flexion c habd Side bilateral Equipment Used L1 Reps/Minutes 10 wall posture Standing Exercise Name with 90/90 ER and HaB Side bilateral Manual Therapy Treatment Soft Tissue Mobilization T/S paraspinals Body Location R T1-4 Mobilization Type Rolling,Strumming Intensity/Depth Moderate Body Position Sitting Joint Mobilizations T/S w movement Joint T1-3 Direction L transverse glide FM w/cover position Body Position Sitting 1st rib Direction inferior Grade III Body Position Supine Comments with deep breathing T/S Direction R->L rotation of SP with rolling Grade III Body Position Sidelying Self-Care/Home Management Treatment Education Other Education Pt educated that they should go to the walk in clinicn or talk to their doctor soon about their prolonged cold- like symptoms. Pt educated to bring up to their primary care physician about their excessive fatigue with everyday tasks PT-OP-R Modalities Start: 12/30/18 09:09 Freq: Status: Active Protocol: Document 06/03/19 11:16 [facility] (Rec: 06/03/19 12:47 [facility] [email or web address]) Hot Pack/Cold Pack Treatment Hot Pack Location T/S and C/S Patient Position Supine Treatment Duration (minutes) 10 PT-OP-T Assessment and Plan Start: 12/30/18 09:09 Freq: Status: Active Protocol: Document 06/03/19 11:16 [facility] (Rec: 06/03/19 12:47 [facility] [email or web address]) Physical Therapy Assessment Goals ROM Snf Goal (LTG) Pt will have WNL cervical ROM in order to allow him to do typical daily activities like reading, driving, looking up without pain. 02/27/19: Pt near normal into flexion. nearly doubled ROM in all other directions except R rotation. 03/26-All WFL except ext LTG Duration 07/12/19 strenght Short Term Goal (STG) Pt will be indep with HEP STG Duration goal met Snf Goal (LTG) Pt will have 5/5 UE strength & EFT in order to show improved stability 02/27/19: progress in shoulder strength. weakness with pronation. 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 02/27/19: not met. Pt has not been cleared to return to work . 03/26-pt to see surgeon in next couple weeks, no clearance 05/12-no clearance LTG Duration 07/12/19 NDI Short Term Goal (STG) Pt will have score of 10/50 in order to show improved functional ability. 02/27/19: not met, NDI score 16 /50 05/12-n/t STG Duration 06/01/20 Drapery And Upholstery Estimator Goal (LTG) Pt will have score of no greater than 2/50 in order to show good functional ability 02/27/19: not met, NDI score 16 /50 LTG Duration 07/12/19 Assessment Summary Assessment Pt was able to do shoulder stabilization exercises with minor fatigue. Pt was restricted in trunk rotation ROM, which was improved with manual therapy. Pt reported that following mobilizations of his T/S he was feeling more fatigued, but reported no symptoms of dizziness or light -headedness. Pt has been sick for over 3 weeks now and was educated that he should talk to a doctor about these symptoms. Physical Therapy Plan Frequency and Duration Frequency of Treatment 1-2x/week Duration of Treatment 2 months Plan of Care Start Date 05/12/19 Plan of Care End Date 07/12/19 Therapeutic Interventions Therapeutic Interventions Home Exercise Program,Joint Mobilizations,Manual Therapy, Patient/Caregiver Education, Self-Care/Home Management,Soft Tissue Mobilization,Taping, Therapeutic Activities, Therapeutic Exercises Modalities Cold Pack/Ice Massage,Electric Stimulation,Hot Packs, Paraffin Bath,Ultrasound Next Visit Focus/Plan Next Note Type Treatment Note Next Visit Plan Review HEP exercises for form, cont to work on upper thoracic mobility & STM to upper cervical spine region
--- NOTE | 2019-06-04 19:07 | PT.OTN ---
Current Diagnoses Spinal stenosis, cervical region (06/04/19) Abnormal posture (06/04/19) Weakness (06/04/19) Physical Therapy Treatment Note PT-OP-A Visit Information Start: 12/30/18 09:09 Freq: Status: Active Protocol: Document 06/04/19 18:37 [facility] (Rec: 06/04/19 19:07 [facility] [id number]) Out-Patient Physical Therapy Visit Information Visit Information Visit Type Treatment Note Visit Start Time 16:02 Visit Stop Time 16:57 Total Visit Minutes 45 Visit Number 04/12 Number of SHOP STEWARD Visits 0 PT-OP-B Current Condition Start: 12/30/18 09:09 Freq: Status: Active Protocol: Document 12/30/18 11:15 [facility] (Rec: 12/30/18 12:09 [facility] [id number]) Current Condition History of Current Condition Onset Date 11/27/18 Current Complaints neck pain post surgery History of Current Condition Pt reports he had a C5-6 ant cervical discectomy w/ arthrodesis w/ant cervical plate on11/27/18 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 Pt has nott been able to work since Jul. Pt is allowed to go on long walks and hikes Treatment Goals Patient/Caregiver Goals Return to work moy, build back up UE strength PT-OP-C Subjective Start: 12/30/18 09:09 Freq: Status: Active Protocol: Document 06/04/19 18:37 [facility] (Rec: 06/04/19 19:07 [facility] [id number]) OP-PT Subjective Patient Comments Patient Comments Pt reports a little soreness in upper tspine area. Went to walk in and they noted he may have bronchitis. Notes he just started antibiotics and an inhaler prescribed today. PT-OP-F Manual Assessment Start: 12/30/18 09:09 Freq: Status: Active Protocol: Document 12/30/18 11:15 [facility] (Rec: 12/30/18 14:08 [facility] [id number]) Manual Assessments Soft Tissue Assessment Soft Tissue Mobility Assessment tightness along scar, UT, LS, cervical paraspinals, scalenes & SCM B PT-OP-J Posture/Palpation/Skin Start: 12/30/18 09:09 Freq: Status: Active Protocol: Document 02/27/19 08:15 [facility] (Rec: 02/27/19 08:33 [facility] [id number]) Posture Evaluation [facility] Postural Classification System Elbow Flexion Test 2 PT-OP-K Range of Motion Start: 12/30/18 09:09 Freq: Status: Active Protocol: Document 05/12/19 10:24 [facility] (Rec: 05/12/19 13:28 [facility] [id number]) Cervical Spine Range of Motion Cervical Spine Active Degrees Flexion 59 Extension 35 Rotation Left 54 Rotation Right 52 Lateral Flexion Left 38 Lateral Flexion Right 40 ROM Limitations Soft Tissue Tightness,Pain PT-OP-L Special Tests Start: 12/30/18 09:09 Freq: Status: Active Protocol: Document 12/30/18 11:15 [facility] (Rec: 12/30/18 12:09 [facility] [id number]) Special Tests Cervical Spine Special Tests Shoulder Abduction Test Test Results about 110 B Alar Ligament Test Results neg Neural Special Tests- Upper Body Radial Nerve Tension Test Results neg B Median Nerve Tension Test Results Neg B Ulnar Nerve Tension Test Results neg B PT-OP-M Strength Start: 12/30/18 09:09 Freq: Status: Active Protocol: Document 05/12/19 10:24 [facility] (Rec: 05/12/19 13:28 [facility] [id number]) Shoulder Strength Shoulder Manual Muscle Testing Right Flexion 4+ Good+ Extension 5 Normal Abduction (C5) 4 Good External Rotation 4+ Good+ Internal Rotation 4+ Good+ Comments EFT:2/5 Left Flexion 4+ Good+ Extension 4+ Good+ Abduction (C5) 4 Good External Rotation 4+ Good+ Internal Rotation 4+ Good+ Elbow/Forearm Strength Elbow and Forearm Manual Muscle Testing Right Flexion (C6) 4+ Good+ Extension (C7) 5 Normal Pronation 4+ Good+ Supination 5 Normal Left Flexion (C6) 4+ Good+ Extension (C7) 5 Normal Pronation 4 Good Supination 5 Normal Wrist Strength Wrist Manual Muscle Testing Right Flexion (C7) 4+ Good+ Extension (C6) 5 Normal Ulnar Deviation 5 Normal Radial Deviation 5 Normal Left Flexion (C7) 4+ Good+ Extension (C6) 5 Normal Ulnar Deviation 4+ Good+ Radial Deviation 5 Normal Hand Er Registrar/Pinch Strength Hand Strength Right Er Registrar (lbs) 105 Left Er Registrar (lbs) 95 PT-OP-Q Treatments Start: 12/30/18 09:09 Freq: Status: Active Protocol: Document 06/04/19 18:37 [facility] (Rec: 06/04/19 19:07 [facility] [id number]) Manual Therapy Treatment Soft Tissue Mobilization cranial fascia Body Location R>L Mobilization Type Myofascial Release Intensity/Depth Superficial SCM Body Location R>L Mobilization Type Rolling,Strumming Intensity/Depth Moderate Body Position Hooklying cervical paraspinals Body Location c spine Mobilization Type Rolling,Strumming Intensity/Depth Moderate Body Position Hooklying SOR Body Location SOR Intensity/Depth Moderate Body Position Hooklying Joint Mobilizations C1 Joint L transverse & R UPA FM w/eye rotation cranium Grade II Comments 1.mastoid R AP-stopped d/t pain 2. R sphenoid L glide FM with eye movements PT-OP-R Modalities Start: 12/30/18 09:09 Freq: Status: Active Protocol: Document 06/04/19 18:37 [facility] (Rec: 06/04/19 19:07 [facility] [id number]) Hot Pack/Cold Pack Treatment Hot Pack Location T/S and C/S Patient Position Supine Treatment Duration (minutes) 10 PT-OP-T Assessment and Plan Start: 12/30/18 09:09 Freq: Status: Active Protocol: Document 06/04/19 18:37 [facility] (Rec: 06/04/19 19:07 [facility] [id number]) Physical Therapy Assessment Goals ROM Intermediate Goal (LTG) Pt will have WNL cervical ROM in order to allow him to do typical daily activities like reading, driving, looking up without pain. 02/27/19: Pt near normal into flexion. nearly doubled ROM in all other directions except R rotation. 03/26-All WFL except ext LTG Duration 07/12/19 strenght Short Term Goal (STG) Pt will be indep with HEP STG Duration goal met Intermediate Goal (LTG) Pt will have 5/5 UE strength & EFT in order to show improved stability 02/27/19: progress in shoulder strength. weakness with pronation. 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 02/27/19: not met. Pt has not been cleared to return to work . 03/26-pt to see surgeon in next couple weeks, no clearance 05/12-no clearance LTG Duration 07/12/19 NDI Short Term Goal (STG) Pt will have score of 10/50 in order to show improved functional ability. 02/27/19: not met, NDI score 16 /50 05/12-n/t STG Duration 06/01/20 Intermediate Goal (LTG) Pt will have score of no greater than 2/50 in order to show good functional ability 02/27/19: not met, NDI score 16 /50 LTG Duration 07/12/19 Assessment Summary Assessment Focus on manual today d/t focus on exercises yesterday and focus on tspine & 1st rib region so manual focused more cranial today. Pt had R shear of sphenoid and C1 with R rotation of C1 that improved with treatment but pt was very tender to this area so limited pressure given. Limited AP mobility of mastiod which pt was too tender to treat. Signficiant cranial restrictions on R side. Physical Therapy Plan Frequency and Duration Frequency of Treatment 1-2x/week Duration of Treatment 2 months Plan of Care Start Date 05/12/19 Plan of Care End Date 07/12/19 Next Visit Focus/Plan Next Note Type Treatment Note Next Visit Plan Review HEP exercises for form, cont to work on upper thoracic mobility & STM to upper cervical spine region; try STM down paraspinals for flex
--- NOTE | 2019-06-10 18:17 | PT.OTN ---
Current Diagnoses Spinal stenosis, cervical region (06/10/19) Abnormal posture (06/10/19) Weakness (06/10/19) Physical Therapy Treatment Note PT-OP-A Visit Information Start: 12/30/18 09:09 Freq: Status: Active Protocol: Document 06/10/19 10:30 MT (Rec: 06/10/19 13:02 MT [email or web address]) Out-Patient Physical Therapy Visit Information Visit Information Visit Type Treatment Note Visit Start Time 10:30 Visit Stop Time 11:27 Total Visit Minutes 57 Visit Number 11 Number of BOX CLOSING MACHINE OPERATOR Visits 0 PT-OP-B Current Condition Start: 12/30/18 09:09 Freq: Status: Active Protocol: Document 12/30/18 11:15 [facility] (Rec: 12/30/18 12:09 [facility] [id number]) Current Condition History of Current Condition Onset Date 11/27/18 Current Complaints neck pain post surgery History of Current Condition Pt reports he had a C5-6 ant cervical discectomy w/ arthrodesis w/ant cervical plate on11/27/18 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 Pt has nott been able to work since Jul. Pt is allowed to go on long walks and hikes Treatment Goals Patient/Caregiver Goals Return to work moy, build back up UE strength PT-OP-C Subjective Start: 12/30/18 09:09 Freq: Status: Active Protocol: Document 06/10/19 10:30 MT (Rec: 06/10/19 13:02 MT [id number]) OP-PT Subjective Patient Comments Patient Comments pt reports that he went to the doctor and got antibiotics for his cold, which has now been starting to improve. He continues to have excessive tiredness and fatigue and reports a whoozy or light- headed feeling after exertion . PT-OP-F Manual Assessment Start: 12/30/18 09:09 Freq: Status: Active Protocol: Document 12/30/18 11:15 [facility] (Rec: 12/30/18 14:08 [facility] [id number]) Manual Assessments Soft Tissue Assessment Soft Tissue Mobility Assessment tightness along scar, UT, LS, cervical paraspinals, scalenes & SCM B PT-OP-J Posture/Palpation/Skin Start: 12/30/18 09:09 Freq: Status: Active Protocol: Document 02/27/19 08:15 LR (Rec: 02/27/19 08:33 [facility] [id number]) Posture Evaluation [facility] Postural Classification System Elbow Flexion Test 2 PT-OP-K Range of Motion Start: 12/30/18 09:09 Freq: Status: Active Protocol: Document 05/12/19 10:24 [facility] (Rec: 05/12/19 13:28 [facility] [id number]) Cervical Spine Range of Motion Cervical Spine Active Degrees Flexion 59 Extension 35 Rotation Left 54 Rotation Right 52 Lateral Flexion Left 38 Lateral Flexion Right 40 ROM Limitations Soft Tissue Tightness,Pain PT-OP-L Special Tests Start: 12/30/18 09:09 Freq: Status: Active Protocol: Document 12/30/18 11:15 [facility] (Rec: 12/30/18 12:09 [facility] [id number]) Special Tests Cervical Spine Special Tests Shoulder Abduction Test Test Results about 110 B Alar Ligament Test Results neg Neural Special Tests- Upper Body Radial Nerve Tension Test Results neg B Median Nerve Tension Test Results Neg B Ulnar Nerve Tension Test Results neg B PT-OP-M Strength Start: 12/30/18 09:09 Freq: Status: Active Protocol: Document 05/12/19 10:24 [facility] (Rec: 05/12/19 13:28 [facility] [id number]) Shoulder Strength Shoulder Manual Muscle Testing Right Flexion 4+ Good+ Extension 5 Normal Abduction (C5) 4 Good External Rotation 4+ Good+ Internal Rotation 4+ Good+ Comments EFT:2/5 Left Flexion 4+ Good+ Extension 4+ Good+ Abduction (C5) 4 Good External Rotation 4+ Good+ Internal Rotation 4+ Good+ Elbow/Forearm Strength Elbow and Forearm Manual Muscle Testing Right Flexion (C6) 4+ Good+ Extension (C7) 5 Normal Pronation 4+ Good+ Supination 5 Normal Left Flexion (C6) 4+ Good+ Extension (C7) 5 Normal Pronation 4 Good Supination 5 Normal Wrist Strength Wrist Manual Muscle Testing Right Flexion (C7) 4+ Good+ Extension (C6) 5 Normal Ulnar Deviation 5 Normal Radial Deviation 5 Normal Left Flexion (C7) 4+ Good+ Extension (C6) 5 Normal Ulnar Deviation 4+ Good+ Radial Deviation 5 Normal Hand Code And Test Clerk/Pinch Strength Hand Strength Right Code And Test Clerk (lbs) 105 Left Code And Test Clerk (lbs) 95 PT-OP-Q Treatments Start: 12/30/18 09:09 Freq: Status: Active Protocol: Document 06/10/19 10:30 MT (Rec: 06/10/19 13:02 MT [id number]) Gym Equipment Therapeutic Ball prone Exercise Details Y's, T's, 90/90 ER, rows Ball Size/Color red Body Position Prone Manual Therapy Treatment Soft Tissue Mobilization T/S paraspinals Body Location R T1-4 Mobilization Type Rolling,Strumming Intensity/Depth Moderate Body Position Sitting UT, scalenes Body Location UT, scalenes, LS Intensity/Depth Moderate Body Position Sitting cervical paraspinals Body Location c spine Mobilization Type Rolling,Strumming Intensity/Depth Moderate Body Position Sitting Joint Mobilizations Ant Ribs Joint L Direction AP w/ superior/inferior bias Grade III Body Position Sidelying Comments w/ deep breathing T/S w movement Joint T1-3 Direction L transverse glide FM w/cover position Body Position Sitting 1st rib Direction inferior Grade III Body Position Sitting Comments with deep breathing PT-OP-R Modalities Start: 12/30/18 09:09 Freq: Status: Active Protocol: Document 06/10/19 10:30 MT (Rec: 06/10/19 13:02 MT [email or web address]) Hot Pack/Cold Pack Treatment Hot Pack Location T/S and C/S Patient Position Supine Treatment Duration (minutes) 10 PT-OP-T Assessment and Plan Start: 12/30/18 09:09 Freq: Status: Active Protocol: Document 06/10/19 10:30 MT (Rec: 06/10/19 13:02 MT [id number]) Physical Therapy Assessment Goals ROM Elementary Substitute Teacher Goal (LTG) Pt will have WNL cervical ROM in order to allow him to do typical daily activities like reading, driving, looking up without pain. 02/27/19: Pt near normal into flexion. nearly doubled ROM in all other directions except R rotation. 03/26-All WFL except ext LTG Duration 07/12/19 strenght Short Term Goal (STG) Pt will be indep with HEP STG Duration goal met Correction Goal (LTG) Pt will have 5/5 UE strength & EFT in order to show improved stability 02/27/19: progress in shoulder strength. weakness with pronation. 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 02/27/19: not met. Pt has not been cleared to return to work . 03/26-pt to see surgeon in next couple weeks, no clearance 05/12-no clearance LTG Duration 07/12/19 NDI Short Term Goal (STG) Pt will have score of 10/50 in order to show improved functional ability. 02/27/19: not met, NDI score 16 /50 05/12-n/t STG Duration 06/01/20 Elementary Substitute Teacher Goal (LTG) Pt will have score of no greater than 2/50 in order to show good functional ability 02/27/19: not met, NDI score 16 /50 LTG Duration 07/12/19 Assessment Summary Assessment Pt tolerated exercises well today with good form and scapular activation. Pt had improved cervical ROM with STM adn T/S joint mobilizations into rotation and extension. Pt was limited with trunk rotation, so performed AP mobs on ribs with superior or inferior bias. upon retesting of trunk rotation, pt began having muscle spasm in lower thoracic region and reported feeling whoozy. Performed STM to area to relieve muscle spasm. Received pt consent to call doctor and discuss concerns that have had with some of pt's symptoms. Physical Therapy Plan Frequency and Duration Frequency of Treatment 1-2x/week Duration of Treatment 2 months Plan of Care Start Date 05/12/19 Plan of Care End Date 07/12/19 Therapeutic Interventions Therapeutic Interventions Home Exercise Program,Joint Mobilizations,Manual Therapy, Patient/Caregiver Education, Self-Care/Home Management,Soft Tissue Mobilization,Taping, Therapeutic Activities, Therapeutic Exercises Modalities Cold Pack/Ice Massage,Electric Stimulation,Hot Packs, Paraffin Bath,Ultrasound Next Visit Focus/Plan Next Note Type Treatment Note Next Visit Plan Review HEP exercises for form, cont to work on upper thoracic mobility & STM to upper cervical spine region; try STM down paraspinals for flex
--- NOTE | 2019-06-12 14:58 | PT.OTN ---
Current Diagnoses Spinal stenosis, cervical region (06/12/19) Abnormal posture (06/12/19) Weakness (06/12/19) Physical Therapy Treatment Note PT-OP-A Visit Information Start: 12/30/18 09:09 Freq: Status: Active Protocol: Document 06/12/19 10:40 [facility] (Rec: 06/12/19 14:45 [facility] [id number]) Out-Patient Physical Therapy Visit Information Visit Information Visit Type Treatment Note Visit Start Time 10:33 Visit Stop Time 11:23 Total Visit Minutes 50 Visit Number 06/12 Number of ITINERANT TEACHER ASSISTANT Visits 0 PT-OP-B Current Condition Start: 12/30/18 09:09 Freq: Status: Active Protocol: Document 12/30/18 11:15 [facility] (Rec: 12/30/18 12:09 [facility] [id number]) Current Condition History of Current Condition Onset Date 11/27/18 Current Complaints neck pain post surgery History of Current Condition Pt reports he had a C5-6 ant cervical discectomy w/ arthrodesis w/ant cervical plate on11/27/18 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 Pt has nott been able to work since Jul. Pt is allowed to go on long walks and hikes Treatment Goals Patient/Caregiver Goals Return to work moy, build back up UE strength PT-OP-C Subjective Start: 12/30/18 09:09 Freq: Status: Active Protocol: Document 06/12/19 10:40 [facility] (Rec: 06/12/19 14:45 [facility] [id number]) OP-PT Subjective Patient Comments Patient Comments Pt reprots going the gym and did 30 min on the bike and tried to inc kettle bells and was able to do it but wiped out and had to wait in car before being able to return home. PT-OP-F Manual Assessment Start: 12/30/18 09:09 Freq: Status: Active Protocol: Document 12/30/18 11:15 [facility] (Rec: 12/30/18 14:08 [facility] [id number]) Manual Assessments Soft Tissue Assessment Soft Tissue Mobility Assessment tightness along scar, UT, LS, cervical paraspinals, scalenes & SCM B PT-OP-J Posture/Palpation/Skin Start: 12/30/18 09:09 Freq: Status: Active Protocol: Document 02/27/19 08:15 [facility] (Rec: 02/27/19 08:33 [facility] [id number]) Posture Evaluation [facility] Postural Classification System Elbow Flexion Test 2 PT-OP-K Range of Motion Start: 12/30/18 09:09 Freq: Status: Active Protocol: Document 05/12/19 10:24 [facility] (Rec: 05/12/19 13:28 [facility] [id number]) Cervical Spine Range of Motion Cervical Spine Active Degrees Flexion 59 Extension 35 Rotation Left 54 Rotation Right 52 Lateral Flexion Left 38 Lateral Flexion Right 40 ROM Limitations Soft Tissue Tightness,Pain PT-OP-L Special Tests Start: 12/30/18 09:09 Freq: Status: Active Protocol: Document 12/30/18 11:15 [facility] (Rec: 12/30/18 12:09 [facility] [id number]) Special Tests Cervical Spine Special Tests Shoulder Abduction Test Test Results about 110 B Alar Ligament Test Results neg Neural Special Tests- Upper Body Radial Nerve Tension Test Results neg B Median Nerve Tension Test Results Neg B Ulnar Nerve Tension Test Results neg B PT-OP-M Strength Start: 12/30/18 09:09 Freq: Status: Active Protocol: Document 05/12/19 10:24 [facility] (Rec: 05/12/19 13:28 [facility] [id number]) Shoulder Strength Shoulder Manual Muscle Testing Right Flexion 4+ Good+ Extension 5 Normal Abduction (C5) 4 Good External Rotation 4+ Good+ Internal Rotation 4+ Good+ Comments EFT:2/5 Left Flexion 4+ Good+ Extension 4+ Good+ Abduction (C5) 4 Good External Rotation 4+ Good+ Internal Rotation 4+ Good+ Elbow/Forearm Strength Elbow and Forearm Manual Muscle Testing Right Flexion (C6) 4+ Good+ Extension (C7) 5 Normal Pronation 4+ Good+ Supination 5 Normal Left Flexion (C6) 4+ Good+ Extension (C7) 5 Normal Pronation 4 Good Supination 5 Normal Wrist Strength Wrist Manual Muscle Testing Right Flexion (C7) 4+ Good+ Extension (C6) 5 Normal Ulnar Deviation 5 Normal Radial Deviation 5 Normal Left Flexion (C7) 4+ Good+ Extension (C6) 5 Normal Ulnar Deviation 4+ Good+ Radial Deviation 5 Normal Hand Band Edger/Pinch Strength Hand Strength Right Band Edger (lbs) 105 Left Band Edger (lbs) 95 PT-OP-Q Treatments Start: 12/30/18 09:09 Freq: Status: Active Protocol: Document 06/12/19 10:40 [facility] (Rec: 06/12/19 14:45 [facility] [id number]) Cardio Equipment Upper Body Ergometer (UBE) Duration (Minutes) 5 RPM 60 Height 5 Other fwd/back Gym Equipment Therapeutic Ball prone Exercise Details Y's, T's, 90/90 ER, rows Ball Size/Color red Body Position Prone Reps/Duration 2x10 ea Comments 1# B Manual Therapy Treatment Soft Tissue Mobilization SCM Body Location R>L SCM & scalenes Mobilization Type Rolling,Strumming Intensity/Depth Moderate Body Position Hooklying cervical paraspinals Body Location c spine to tspine with fwd flex Mobilization Type Rolling,Strumming Intensity/Depth Moderate Body Position Sitting Comments also MFR w/dycem at upper tspine with cervical flex Joint Mobilizations T/S Joint T1-3 Direction AP Grade II Body Position Sitting PT-OP-R Modalities Start: 12/30/18 09:09 Freq: Status: Active Protocol: Document 06/12/19 10:40 [facility] (Rec: 06/12/19 14:58 [facility] [id number]) Hot Pack/Cold Pack Treatment Hot Pack Location T/S and C/S Patient Position Supine Treatment Duration (minutes) 10 PT-OP-T Assessment and Plan Start: 12/30/18 09:09 Freq: Status: Active Protocol: Document 06/12/19 10:40 [facility] (Rec: 06/12/19 14:45 [facility] [id number]) Physical Therapy Assessment Goals ROM [facility] Goal (LTG) Pt will have WNL cervical ROM in order to allow him to do typical daily activities like reading, driving, looking up without pain. 02/27/19: Pt near normal into flexion. nearly doubled ROM in all other directions except R rotation. 03/26-All WFL except ext LTG Duration 07/12/19 strenght Short Term Goal (STG) Pt will be indep with HEP STG Duration goal met [place] Neck Whipper Goal (LTG) Pt will have 5/5 UE strength & EFT in order to show improved stability 02/27/19: progress in shoulder strength. weakness with pronation. 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 02/27/19: not met. Pt has not been cleared to return to work . 03/26-pt to see surgeon in next couple weeks, no clearance 05/12-no clearance LTG Duration 07/12/19 NDI Short Term Goal (STG) Pt will have score of 10/50 in order to show improved functional ability. 02/27/19: not met, NDI score 16 /50 05/12-n/t STG Duration 06/01/20 [place] Neck Whipper Goal (LTG) Pt will have score of no greater than 2/50 in order to show good functional ability 02/27/19: not met, NDI score 16 /50 LTG Duration 07/12/19 Assessment Summary Assessment Pt had significant improved cervical flex with manual treatment and improvement of L rotation of 60% to about 65% and R rot from 50 to 60% Physical Therapy Plan Frequency and Duration Frequency of Treatment 1-2x/week Duration of Treatment 2 months Plan of Care Start Date 05/12/19 Plan of Care End Date 07/12/19 Next Visit Focus/Plan Next Note Type Treatment Note Next Visit Plan cont to work on cervical & scapular stability; scap pnf
--- NOTE | 2019-06-17 18:42 | PT.OTN ---
Current Diagnoses Spinal stenosis, cervical region (06/17/19) Abnormal posture (06/17/19) Weakness (06/17/19) Physical Therapy Treatment Note PT-OP-A Visit Information Start: 12/30/18 09:09 Freq: Status: Active Protocol: Document 06/17/19 10:30 MT (Rec: 06/17/19 12:37 MT [id number]) Out-Patient Physical Therapy Visit Information Visit Information Visit Type Treatment Note Visit Start Time 10:30 Visit Stop Time 11:27 Total Visit Minutes 57 Number of INBOUND CUSTOMER SERVICE REPRESENTATIVE Visits 0 PT-OP-B Current Condition Start: 12/30/18 09:09 Freq: Status: Active Protocol: Document 12/30/18 11:15 [facility] (Rec: 12/30/18 12:09 [facility] [id number]) Current Condition History of Current Condition Onset Date 11/27/18 Current Complaints neck pain post surgery History of Current Condition Pt reports he had a C5-6 ant cervical discectomy w/ arthrodesis w/ant cervical plate on11/27/18 d/t dec B site promotion agent strength & inc pain. Pt has nott been able to work since Jul. Pt is allowed to go on long walks and hikes Treatment Goals Patient/Caregiver Goals Return to work moy, build back up UE strength PT-OP-C Subjective Start: 12/30/18 09:09 Freq: Status: Active Protocol: Document 06/17/19 10:30 MT (Rec: 06/17/19 12:37 MT [id number]) OP-PT Subjective Patient Comments Patient Comments Pt reports that he went to the doctor and he was found to have abnormally high BP. Doctor thought that his fatigue could be from thyroid issues, and ran some blood tests, which pt has not received results for yet. Pt reports that he has been having to use sleep pills to help get to sleep because he has not been sleeping well. PT-OP-F Manual Assessment Start: 12/30/18 09:09 Freq: Status: Active Protocol: Document 12/30/18 11:15 [facility] (Rec: 12/30/18 14:08 [facility] [id number]) Manual Assessments Soft Tissue Assessment Soft Tissue Mobility Assessment tightness along scar, UT, LS, cervical paraspinals, scalenes & SCM B PT-OP-J Posture/Palpation/Skin Start: 12/30/18 09:09 Freq: Status: Active Protocol: Document 02/27/19 08:15 [facility] (Rec: 02/27/19 08:33 [facility] [id number]) Posture Evaluation [facility] Postural Classification System Elbow Flexion Test 2 PT-OP-K Range of Motion Start: 12/30/18 09:09 Freq: Status: Active Protocol: Document 05/12/19 10:24 [facility] (Rec: 05/12/19 13:28 [facility] [id number]) Cervical Spine Range of Motion Cervical Spine Active Degrees Flexion 59 Extension 35 Rotation Left 54 Rotation Right 52 Lateral Flexion Left 38 Lateral Flexion Right 40 ROM Limitations Soft Tissue Tightness,Pain PT-OP-L Special Tests Start: 12/30/18 09:09 Freq: Status: Active Protocol: Document 12/30/18 11:15 [facility] (Rec: 12/30/18 12:09 [facility] [id number]) Special Tests Cervical Spine Special Tests Shoulder Abduction Test Test Results about 110 B Alar Ligament Test Results neg Neural Special Tests- Upper Body Radial Nerve Tension Test Results neg B Median Nerve Tension Test Results Neg B Ulnar Nerve Tension Test Results neg B PT-OP-M Strength Start: 12/30/18 09:09 Freq: Status: Active Protocol: Document 05/12/19 10:24 [facility] (Rec: 05/12/19 13:28 [facility] [id number]) Shoulder Strength Shoulder Manual Muscle Testing Right Flexion 4+ Good+ Extension 5 Normal Abduction (C5) 4 Good External Rotation 4+ Good+ Internal Rotation 4+ Good+ Comments EFT:2/5 Left Flexion 4+ Good+ Extension 4+ Good+ Abduction (C5) 4 Good External Rotation 4+ Good+ Internal Rotation 4+ Good+ Elbow/Forearm Strength Elbow and Forearm Manual Muscle Testing Right Flexion (C6) 4+ Good+ Extension (C7) 5 Normal Pronation 4+ Good+ Supination 5 Normal Left Flexion (C6) 4+ Good+ Extension (C7) 5 Normal Pronation 4 Good Supination 5 Normal Wrist Strength Wrist Manual Muscle Testing Right Flexion (C7) 4+ Good+ Extension (C6) 5 Normal Ulnar Deviation 5 Normal Radial Deviation 5 Normal Left Flexion (C7) 4+ Good+ Extension (C6) 5 Normal Ulnar Deviation 4+ Good+ Radial Deviation 5 Normal Hand Facility Operations Manager/Pinch Strength Hand Strength Right Facility Operations Manager (lbs) 105 Left Facility Operations Manager (lbs) 95 PT-OP-Q Treatments Start: 12/30/18 09:09 Freq: Status: Active Protocol: Document 06/17/19 10:30 MT (Rec: 06/17/19 12:37 MT [email or web address]) Cardio Equipment Upper Body Ergometer (UBE) Duration (Minutes) 6 RPM 60 Height 5 Other fwd/back Gym Equipment Therapeutic Ball prone Exercise Details Y's, T's, 90/90 ER, rows Ball Size/Color red Body Position Prone Reps/Duration 1x10 ea Comments 2# B Therapeutic Exercises Supine Exercises chin tucks and hold Supine Exercise Name chin tucks Reps/Minutes 20 Comments cueing for isolating proper motion Sitting Exercises cervical sidebending stretch Sitting Exercise Name UT, LS, PS stretch Side bilateral Reps/Minutes 30 sec each Standing Exercises resisted rows Standing Exercise Name rows and pull downs Side bilateral Resistance L2 Reps/Minutes 10each Manual Therapy Treatment Soft Tissue Mobilization T/S paraspinals Body Location R T1-8 Mobilization Type Rolling,Strumming Intensity/Depth Moderate Body Position Sitting cervical paraspinals Body Location c spine to tspine with fwd flex Mobilization Type Rolling,Strumming Intensity/Depth Moderate Body Position Sitting SOR Body Location SO Mobilization Type Rolling,Strumming,Sustained Pressure Intensity/Depth Moderate Body Position Sitting Self-Care/Home Management Treatment Education Other Education Educated pt to look into seeing a sleep specialist or a counselor to address his problems with sleeping and how he feels stressed about things at night which keeps him from falling asleep PT-OP-R Modalities Start: 12/30/18 09:09 Freq: Status: Active Protocol: Document 06/17/19 10:30 MT (Rec: 06/17/19 12:37 MT [id number]) Hot Pack/Cold Pack Treatment Hot Pack Location T/S and C/S Patient Position Supine Treatment Duration (minutes) 10 PT-OP-T Assessment and Plan Start: 12/30/18 09:09 Freq: Status: Active Protocol: Document 06/17/19 10:30 MT (Rec: 06/17/19 12:37 MT [id number]) Physical Therapy Assessment Goals ROM Photoengraver Apprentice Goal (LTG) Pt will have WNL cervical ROM in order to allow him to do typical daily activities like reading, driving, looking up without pain. 02/27/19: Pt near normal into flexion. nearly doubled ROM in all other directions except R rotation. 03/26-All WFL except ext LTG Duration 07/12/19 strenght Short Term Goal (STG) Pt will be indep with HEP STG Duration goal met Mcfp Goal (LTG) Pt will have 5/5 UE strength & EFT in order to show improved stability 02/27/19: progress in shoulder strength. weakness with pronation. 03/26-significantly improved LTG Duration 07/12/19 work Short Term Goal (STG) Pt will have average site promotion agent strength for his age allowing him to do his job abilities ( 110 B) 02/27/19: R 82 lbs, L 80 lbs STG Duration achieved L, still not R 04/15 Mcfp Goal (LTG) Pt will be able to return to work with min restrictions. 02/27/19: not met. Pt has not been cleared to return to work . 03/26-pt to see surgeon in next couple weeks, no clearance 05/12-no clearance LTG Duration 07/12/19 NDI Short Term Goal (STG) Pt will have score of 10/50 in order to show improved functional ability. 02/27/19: not met, NDI score 16 /50 05/12-n/t STG Duration 06/01/20 Mcfp Goal (LTG) Pt will have score of no greater than 2/50 in order to show good functional ability 02/27/19: not met, NDI score 16 /50 LTG Duration 07/12/19 Assessment Summary Assessment Pt was able to achieve greater cervical flexion following STM to CS and TS paraspinals and was able to more smoothly perform motion. Pt was eduardo to tolerate exercises today with increased weight/ resistance. Pt remarked that he has been having trouble sleeping and feels like he can 't stop thinking about things with work and other future life plans. Pt was educated that he may benefot from talking to a sleep specialist to address his sleeping problem or a couselor to address his stress that may be affecting his sleep. Physical Therapy Plan Frequency and Duration Frequency of Treatment 1-2x/week Duration of Treatment 2 months Plan of Care Start Date 05/12/19 Plan of Care End Date 07/12/19 Next Visit Focus/Plan Next Note Type Treatment Note Next Visit Plan cont to work on cervical & scapular stability; scap pnf
--- NOTE | 2019-06-19 13:40 | PT.OTN ---
Current Diagnoses Spinal stenosis, cervical region (06/19/19) Abnormal posture (06/19/19) Weakness (06/19/19) Physical Therapy Treatment Note PT-OP-A Visit Information Start: 12/30/18 09:09 Freq: Status: Active Protocol: Document 06/19/19 10:40 [facility] (Rec: 06/19/19 13:39 [facility] [id number]) Out-Patient Physical Therapy Visit Information Visit Information Visit Type Treatment Note Visit Start Time 10:35 Visit Stop Time 11:23 Total Visit Minutes 48 Number of DISASTER RECOVERY ANALYST Visits 0 PT-OP-B Current Condition Start: 12/30/18 09:09 Freq: Status: Active Protocol: Document 12/30/18 11:15 [facility] (Rec: 12/30/18 12:09 [facility] [id number]) Current Condition History of Current Condition Onset Date 11/27/18 Current Complaints neck pain post surgery History of Current Condition Pt reports he had a C5-6 ant cervical discectomy w/ arthrodesis w/ant cervical plate on11/27/18 d/t dec B engineering faculty strength & inc pain. Pt has nott been able to work since Jul. Pt is allowed to go on long walks and hikes Treatment Goals Patient/Caregiver Goals Return to work moy, build back up UE strength PT-OP-C Subjective Start: 12/30/18 09:09 Freq: Status: Active Protocol: Document 06/19/19 10:40 [facility] (Rec: 06/19/19 13:39 [facility] [id number]) OP-PT Subjective Patient Comments Patient Comments Pt reports he worked out yesterday PT-OP-F Manual Assessment Start: 12/30/18 09:09 Freq: Status: Active Protocol: Document 12/30/18 11:15 [facility] (Rec: 12/30/18 14:08 [facility] [id number]) Manual Assessments Soft Tissue Assessment Soft Tissue Mobility Assessment tightness along scar, UT, LS, cervical paraspinals, scalenes & SCM B PT-OP-J Posture/Palpation/Skin Start: 12/30/18 09:09 Freq: Status: Active Protocol: Document 02/27/19 08:15 [facility] (Rec: 02/27/19 08:33 [facility] [id number]) Posture Evaluation [facility] Postural Classification System Elbow Flexion Test 2 PT-OP-K Range of Motion Start: 12/30/18 09:09 Freq: Status: Active Protocol: Document 05/12/19 10:24 [facility] (Rec: 05/12/19 13:28 [facility] [id number]) Cervical Spine Range of Motion Cervical Spine Active Degrees Flexion 59 Extension 35 Rotation Left 54 Rotation Right 52 Lateral Flexion Left 38 Lateral Flexion Right 40 ROM Limitations Soft Tissue Tightness,Pain PT-OP-L Special Tests Start: 12/30/18 09:09 Freq: Status: Active Protocol: Document 12/30/18 11:15 [facility] (Rec: 12/30/18 12:09 [facility] [id number]) Special Tests Cervical Spine Special Tests Shoulder Abduction Test Test Results about 110 B Alar Ligament Test Results neg Neural Special Tests- Upper Body Radial Nerve Tension Test Results neg B Median Nerve Tension Test Results Neg B Ulnar Nerve Tension Test Results neg B PT-OP-M Strength Start: 12/30/18 09:09 Freq: Status: Active Protocol: Document 05/12/19 10:24 [facility] (Rec: 05/12/19 13:28 [facility] [id number]) Shoulder Strength Shoulder Manual Muscle Testing Right Flexion 4+ Good+ Extension 5 Normal Abduction (C5) 4 Good External Rotation 4+ Good+ Internal Rotation 4+ Good+ Comments EFT:2/5 Left Flexion 4+ Good+ Extension 4+ Good+ Abduction (C5) 4 Good External Rotation 4+ Good+ Internal Rotation 4+ Good+ Elbow/Forearm Strength Elbow and Forearm Manual Muscle Testing Right Flexion (C6) 4+ Good+ Extension (C7) 5 Normal Pronation 4+ Good+ Supination 5 Normal Left Flexion (C6) 4+ Good+ Extension (C7) 5 Normal Pronation 4 Good Supination 5 Normal Wrist Strength Wrist Manual Muscle Testing Right Flexion (C7) 4+ Good+ Extension (C6) 5 Normal Ulnar Deviation 5 Normal Radial Deviation 5 Normal Left Flexion (C7) 4+ Good+ Extension (C6) 5 Normal Ulnar Deviation 4+ Good+ Radial Deviation 5 Normal Hand Emergency Preparedness Coordinator/Pinch Strength Hand Strength Right Emergency Preparedness Coordinator (lbs) 105 Left Emergency Preparedness Coordinator (lbs) 95 PT-OP-Q Treatments Start: 12/30/18 09:09 Freq: Status: Active Protocol: Document 06/19/19 10:40 [facility] (Rec: 06/19/19 13:39 [facility] [id number]) Cardio Equipment Upper Body Ergometer (UBE) Duration (Minutes) 5 RPM 60 Height 5 Other fwd/back Therapeutic Exercises Sitting Exercises isometrics Sitting Exercise Name rotation, SB, retract, ext, flex Side bilateral Reps/Minutes 5 sec holdx3 ea Manual Therapy Treatment Soft Tissue Mobilization cranial fascia Body Location R>L Mobilization Type Myofascial Release Intensity/Depth Superficial SOR Body Location SOR Intensity/Depth Superficial Body Position Supine Neuro Re-Education Treatment Other Activities Scapular PNF Details ant elevation, post dep Comments 1. rhythmic iniation 2. COI Self-Care/Home Management Treatment Education Other Education edu to talk to MD about possible sleep study and counseling Activities Self-Care/Home Management Activities BP 138/82 prior to activity PT-OP-R Modalities Start: 12/30/18 09:09 Freq: Status: Active Protocol: Document 06/19/19 10:40 [facility] (Rec: 06/19/19 13:40 [facility] [id number]) Hot Pack/Cold Pack Treatment Hot Pack Location T/S and C/S Patient Position Supine Treatment Duration (minutes) 10 PT-OP-T Assessment and Plan Start: 12/30/18 09:09 Freq: Status: Active Protocol: Document 06/19/19 10:40 [facility] (Rec: 06/19/19 13:39 [facility] [id number]) Physical Therapy Assessment Goals ROM Addressing Machine Operator Goal (LTG) Pt will have WNL cervical ROM in order to allow him to do typical daily activities like reading, driving, looking up without pain. 02/27/19: Pt near normal into flexion. nearly doubled ROM in all other directions except R rotation. 03/26-All WFL except ext LTG Duration 07/12/19 strenght Short Term Goal (STG) Pt will be indep with HEP STG Duration goal met Addressing Machine Operator Goal (LTG) Pt will have 5/5 UE strength & EFT in order to show improved stability 02/27/19: progress in shoulder strength. weakness with pronation. 03/26-significantly improved LTG Duration 07/12/19 work Short Term Goal (STG) Pt will have average engineering faculty strength for his age allowing him to do his job abilities ( 110 B) 02/27/19: R 82 lbs, L 80 lbs STG Duration achieved L, still not R 04/15 Senior Living Goal (LTG) Pt will be able to return to work with min restrictions. 02/27/19: not met. Pt has not been cleared to return to work . 03/26-pt to see surgeon in next couple weeks, no clearance 05/12-no clearance LTG Duration 07/12/19 NDI Short Term Goal (STG) Pt will have score of 10/50 in order to show improved functional ability. 02/27/19: not met, NDI score 16 /50 05/12-n/t STG Duration 06/01/20 Addressing Machine Operator Goal (LTG) Pt will have score of no greater than 2/50 in order to show good functional ability 02/27/19: not met, NDI score 16 /50 LTG Duration 07/12/19 Assessment Summary Assessment Very superficial STM done d/t pt reporting some RAMOS today and noting a slight lightheaded/ inc pain feeling with deeper STM done on ROM at SCM & suboccipital mm. Physical Therapy Plan Frequency and Duration Frequency of Treatment 1-2x/week Duration of Treatment 2 months Plan of Care Start Date 05/12/19 Plan of Care End Date 07/12/19 Next Visit Focus/Plan Next Note Type Treatment Note Next Visit Plan cont to work on cervical & scapular stability; scap pnf
--- NOTE | 2019-06-23 09:03 | PT.OTN ---
Current Diagnoses Spinal stenosis, cervical region (06/23/19) Abnormal posture (06/23/19) Weakness (06/23/19) Physical Therapy Treatment Note PT-OP-A Visit Information Start: 12/30/18 09:09 Freq: Status: Active Protocol: Document 06/23/19 08:21 [facility] (Rec: 06/23/19 09:03 [facility] [id number]) Out-Patient Physical Therapy Visit Information Visit Information Visit Type Treatment Note Visit Start Time 08:19 Visit Stop Time 08:10 Total Visit Minutes 49 Visit Number 10/11 Number of DESK SERGEANT Visits 0 PT-OP-B Current Condition Start: 12/30/18 09:09 Freq: Status: Active Protocol: Document 12/30/18 11:15 [facility] (Rec: 12/30/18 12:09 [facility] [id number]) Current Condition History of Current Condition Onset Date 11/27/18 Current Complaints neck pain post surgery History of Current Condition Pt reports he had a C5-6 ant cervical discectomy w/ arthrodesis w/ant cervical plate on11/27/18 d/t dec B state game protector strength & inc pain. Pt has nott been able to work since Jul. Pt is allowed to go on long walks and hikes Treatment Goals Patient/Caregiver Goals Return to work moy, build back up UE strength PT-OP-C Subjective Start: 12/30/18 09:09 Freq: Status: Active Protocol: Document 06/23/19 08:21 [facility] (Rec: 06/23/19 09:03 [facility] [id number]) OP-PT Subjective Patient Comments Patient Comments Pt reports the paxil that he has been taking every day seems to be making him more tired. PT-OP-F Manual Assessment Start: 12/30/18 09:09 Freq: Status: Active Protocol: Document 12/30/18 11:15 [facility] (Rec: 12/30/18 14:08 [facility] [id number]) Manual Assessments Soft Tissue Assessment Soft Tissue Mobility Assessment tightness along scar, UT, LS, cervical paraspinals, scalenes & SCM B PT-OP-J Posture/Palpation/Skin Start: 12/30/18 09:09 Freq: Status: Active Protocol: Document 02/27/19 08:15 [facility] (Rec: 02/27/19 08:33 [facility] [id number]) Posture Evaluation [facility] Postural Classification System Elbow Flexion Test 2 PT-OP-K Range of Motion Start: 12/30/18 09:09 Freq: Status: Active Protocol: Document 05/12/19 10:24 [facility] (Rec: 05/12/19 13:28 [facility] [id number]) Cervical Spine Range of Motion Cervical Spine Active Degrees Flexion 59 Extension 35 Rotation Left 54 Rotation Right 52 Lateral Flexion Left 38 Lateral Flexion Right 40 ROM Limitations Soft Tissue Tightness,Pain PT-OP-L Special Tests Start: 12/30/18 09:09 Freq: Status: Active Protocol: Document 12/30/18 11:15 [facility] (Rec: 12/30/18 12:09 [facility] [id number]) Special Tests Cervical Spine Special Tests Shoulder Abduction Test Test Results about 110 B Alar Ligament Test Results neg Neural Special Tests- Upper Body Radial Nerve Tension Test Results neg B Median Nerve Tension Test Results Neg B Ulnar Nerve Tension Test Results neg B PT-OP-M Strength Start: 12/30/18 09:09 Freq: Status: Active Protocol: Document 05/12/19 10:24 [facility] (Rec: 05/12/19 13:28 [facility] [id number]) Shoulder Strength Shoulder Manual Muscle Testing Right Flexion 4+ Good+ Extension 5 Normal Abduction (C5) 4 Good External Rotation 4+ Good+ Internal Rotation 4+ Good+ Comments EFT:2/5 Left Flexion 4+ Good+ Extension 4+ Good+ Abduction (C5) 4 Good External Rotation 4+ Good+ Internal Rotation 4+ Good+ Elbow/Forearm Strength Elbow and Forearm Manual Muscle Testing Right Flexion (C6) 4+ Good+ Extension (C7) 5 Normal Pronation 4+ Good+ Supination 5 Normal Left Flexion (C6) 4+ Good+ Extension (C7) 5 Normal Pronation 4 Good Supination 5 Normal Wrist Strength Wrist Manual Muscle Testing Right Flexion (C7) 4+ Good+ Extension (C6) 5 Normal Ulnar Deviation 5 Normal Radial Deviation 5 Normal Left Flexion (C7) 4+ Good+ Extension (C6) 5 Normal Ulnar Deviation 4+ Good+ Radial Deviation 5 Normal Hand Software Design Engineer/Pinch Strength Hand Strength Right Software Design Engineer (lbs) 105 Left Software Design Engineer (lbs) 95 PT-OP-Q Treatments Start: 12/30/18 09:09 Freq: Status: Active Protocol: Document 06/23/19 08:21 [facility] (Rec: 06/23/19 09:03 [facility] [id number]) Cardio Equipment Upper Body Ergometer (UBE) Duration (Minutes) 5 RPM 60 Height 5 Other fwd/back Therapeutic Exercises Supine Exercises chin tucks and hold Reps/Minutes 10 foam roll Supine Exercise Name roll side<>side; parallel along spine: Habd, flex Side bilateral Reps/Minutes 10 Sitting Exercises isometrics Sitting Exercise Name rotation, SB, retract, ext, flex Side bilateral Reps/Minutes 5 sec holdx3 ea Manual Therapy Treatment Soft Tissue Mobilization cranial fascia Body Location R>L Mobilization Type Myofascial Release Intensity/Depth Superficial UT, scalenes Body Location R sided Mobilization Type Myofascial Release,Rolling, Strumming Joint Mobilizations 1st rib Joint R Direction inf Grade II Self-Care/Home Management Treatment Education Other Education BP 136/90 PT-OP-R Modalities Start: 12/30/18 09:09 Freq: Status: Active Protocol: Document 06/23/19 08:21 [facility] (Rec: 06/23/19 09:03 [facility] [id number]) Hot Pack/Cold Pack Treatment Hot Pack Location T/S and C/S Patient Position Supine Treatment Duration (minutes) 10 PT-OP-T Assessment and Plan Start: 12/30/18 09:09 Freq: Status: Active Protocol: Document 06/23/19 08:21 [facility] (Rec: 06/23/19 09:03 [facility] [id number]) Physical Therapy Assessment Goals ROM Retirement Goal (LTG) Pt will have WNL cervical ROM in order to allow him to do typical daily activities like reading, driving, looking up without pain. 02/27/19: Pt near normal into flexion. nearly doubled ROM in all other directions except R rotation. 03/26-All WFL except ext LTG Duration 07/12/19 strenght Short Term Goal (STG) Pt will be indep with HEP STG Duration goal met Ground Worker Goal (LTG) Pt will have 5/5 UE strength & EFT in order to show improved stability 02/27/19: progress in shoulder strength. weakness with pronation. 03/26-significantly improved LTG Duration 07/12/19 work Short Term Goal (STG) Pt will have average state game protector strength for his age allowing him to do his job abilities ( 110 B) 02/27/19: R 82 lbs, L 80 lbs STG Duration achieved L, still not R 04/15 Ground Worker Goal (LTG) Pt will be able to return to work with min restrictions. 02/27/19: not met. Pt has not been cleared to return to work . 03/26-pt to see surgeon in next couple weeks, no clearance 05/12-no clearance LTG Duration 07/12/19 NDI Short Term Goal (STG) Pt will have score of 10/50 in order to show improved functional ability. 02/27/19: not met, NDI score 16 /50 05/12-n/t STG Duration 06/01/20 Retirement Goal (LTG) Pt will have score of no greater than 2/50 in order to show good functional ability 02/27/19: not met, NDI score 16 /50 LTG Duration 07/12/19 Assessment Summary Assessment Pt required cueing with exercises for posture and maintaining netural positioning. Cueing for gentle pressure with isometrics. Cont tightness in cranial fascia on R side. no lightheadedness reported during soft tissue. Cont R sided tightness thoughout >L Physical Therapy Plan Frequency and Duration Frequency of Treatment 1-2x/week Duration of Treatment 2 months Plan of Care Start Date 05/12/19 Plan of Care End Date 07/12/19 Next Visit Focus/Plan Next Note Type Treatment Note Next Visit Plan cont to work on cervical & scapular stability; scap pnf
--- NOTE | 2019-07-01 11:42 | PT.OTN ---
Current Diagnoses Spinal stenosis, cervical region (07/01/19) Abnormal posture (07/01/19) Weakness (07/01/19) Physical Therapy Treatment Note PT-OP-A Visit Information Start: 12/30/18 09:09 Freq: Status: Active Protocol: Document 07/01/19 09:41 [facility] (Rec: 07/01/19 11:41 [facility] [id number]) Out-Patient Physical Therapy Visit Information Visit Information Visit Type Treatment Note Visit Start Time 10:33 Visit Stop Time 11:15 Total Visit Minutes 42 Visit Number 11/10 PT-OP-B Current Condition Start: 12/30/18 09:09 Freq: Status: Active Protocol: Document 12/30/18 11:15 [facility] (Rec: 12/30/18 12:09 [facility] [id number]) Current Condition History of Current Condition Onset Date 11/27/18 Current Complaints neck pain post surgery History of Current Condition Pt reports he had a C5-6 ant cervical discectomy w/ arthrodesis w/ant cervical plate on11/27/18 d/t 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 Pt has nott been able to work since Jul. Pt is allowed to go on long walks and hikes Treatment Goals Patient/Caregiver Goals Return to work moy, build back up UE strength PT-OP-C Subjective Start: 12/30/18 09:09 Freq: Status: Active Protocol: Document 07/01/19 09:41 [facility] (Rec: 07/01/19 11:41 [facility] [id number]) OP-PT Subjective Patient Comments Patient Comments Pt reports he started his first testosterone shot. Notes his leg is very sore from that. Notes he just got his authorization for his head MRI . PT-OP-F Manual Assessment Start: 12/30/18 09:09 Freq: Status: Active Protocol: Document 12/30/18 11:15 [facility] (Rec: 12/30/18 14:08 [facility] [id number]) Manual Assessments Soft Tissue Assessment Soft Tissue Mobility Assessment tightness along scar, UT, LS, cervical paraspinals, scalenes & SCM B PT-OP-J Posture/Palpation/Skin Start: 12/30/18 09:09 Freq: Status: Active Protocol: Document 02/27/19 08:15 [facility] (Rec: 02/27/19 08:33 [facility] [id number]) Posture Evaluation [facility] Postural Classification System Elbow Flexion Test 2 PT-OP-K Range of Motion Start: 12/30/18 09:09 Freq: Status: Active Protocol: Document 05/12/19 10:24 [facility] (Rec: 05/12/19 13:28 [facility] [id number]) Cervical Spine Range of Motion Cervical Spine Active Degrees Flexion 59 Extension 35 Rotation Left 54 Rotation Right 52 Lateral Flexion Left 38 Lateral Flexion Right 40 ROM Limitations Soft Tissue Tightness,Pain PT-OP-L Special Tests Start: 12/30/18 09:09 Freq: Status: Active Protocol: Document 12/30/18 11:15 [facility] (Rec: 12/30/18 12:09 [facility] [id number]) Special Tests Cervical Spine Special Tests Shoulder Abduction Test Test Results about 110 B Alar Ligament Test Results neg Neural Special Tests- Upper Body Radial Nerve Tension Test Results neg B Median Nerve Tension Test Results Neg B Ulnar Nerve Tension Test Results neg B PT-OP-M Strength Start: 12/30/18 09:09 Freq: Status: Active Protocol: Document 05/12/19 10:24 [facility] (Rec: 05/12/19 13:28 [facility] [id number]) Shoulder Strength Shoulder Manual Muscle Testing Right Flexion 4+ Good+ Extension 5 Normal Abduction (C5) 4 Good External Rotation 4+ Good+ Internal Rotation 4+ Good+ Comments EFT:2/5 Left Flexion 4+ Good+ Extension 4+ Good+ Abduction (C5) 4 Good External Rotation 4+ Good+ Internal Rotation 4+ Good+ Elbow/Forearm Strength Elbow and Forearm Manual Muscle Testing Right Flexion (C6) 4+ Good+ Extension (C7) 5 Normal Pronation 4+ Good+ Supination 5 Normal Left Flexion (C6) 4+ Good+ Extension (C7) 5 Normal Pronation 4 Good Supination 5 Normal Wrist Strength Wrist Manual Muscle Testing Right Flexion (C7) 4+ Good+ Extension (C6) 5 Normal Ulnar Deviation 5 Normal Radial Deviation 5 Normal Left Flexion (C7) 4+ Good+ Extension (C6) 5 Normal Ulnar Deviation 4+ Good+ Radial Deviation 5 Normal Hand It Consultant/Pinch Strength Hand Strength Right It Consultant (lbs) 105 Left It Consultant (lbs) 95 PT-OP-Q Treatments Start: 12/30/18 09:09 Freq: Status: Active Protocol: Document 07/01/19 09:41 [facility] (Rec: 07/01/19 11:41 [facility] [id number]) Cardio Equipment Upper Body Ergometer (UBE) Duration (Minutes) 5 RPM 60 Height 5 Other fwd/back Therapeutic Exercises Supine Exercises chin tucks and hold Supine Exercise Name axial elongation w/taking away hand support Reps/Minutes 8x 5 sec hold Sitting Exercises isometrics Sitting Exercise Name rotation, SB, retract, ext, flex Side bilateral Reps/Minutes 3sec ea Manual Therapy Treatment Soft Tissue Mobilization cranial fascia Body Location R>L Mobilization Type Myofascial Release Intensity/Depth Superficial SCM Body Location R>L Mobilization Type Myofascial Release,Rolling Intensity/Depth Superficial PT-OP-R Modalities Start: 12/30/18 09:09 Freq: Status: Active Protocol: Document 06/23/19 08:21 [facility] (Rec: 06/23/19 09:03 [facility] [id number]) Hot Pack/Cold Pack Treatment Hot Pack Location T/S and C/S Patient Position Supine Treatment Duration (minutes) 10 PT-OP-T Assessment and Plan Start: 12/30/18 09:09 Freq: Status: Active Protocol: Document 07/01/19 09:41 [facility] (Rec: 07/01/19 11:41 [facility] [id number]) Physical Therapy Assessment Goals ROM Toe Trimmer Goal (LTG) Pt will have WNL cervical ROM in order to allow him to do typical daily activities like reading, driving, looking up without pain. 02/27/19: Pt near normal into flexion. nearly doubled ROM in all other directions except R rotation. 03/26-All WFL except ext LTG Duration 07/12/19 strenght Short Term Goal (STG) Pt will be indep with HEP STG Duration goal met Toe Trimmer Goal (LTG) Pt will have 5/5 UE strength & EFT in order to show improved stability 02/27/19: progress in shoulder strength. weakness with pronation. 03/26-significantly improved LTG Duration 07/12/19 work Short Term Goal (STG) Pt will have average clock and watch assembler strength for his age allowing him to do his job abilities ( 110 B) 02/27/19: R 82 lbs, L 80 lbs STG Duration achieved L, still not R 04/15 Skilled Nursing Goal (LTG) Pt will be able to return to work with min restrictions. 02/27/19: not met. Pt has not been cleared to return to work . 03/26-pt to see surgeon in next couple weeks, no clearance 05/12-no clearance LTG Duration 07/12/19 NDI Short Term Goal (STG) Pt will have score of 10/50 in order to show improved functional ability. 02/27/19: not met, NDI score 16 /50 05/12-n/t STG Duration 06/01/20 Skilled Nursing Goal (LTG) Pt will have score of no greater than 2/50 in order to show good functional ability 02/27/19: not met, NDI score 16 /50 LTG Duration 07/12/19 Assessment Summary Assessment Pt educated to cont to work on cervical isometrics and work on axial elongation exercises in upright positioning and in supine positioning. He did well with MFR today without any c/o too much pain or lightheadedness. Physical Therapy Plan Frequency and Duration Frequency of Treatment 1-2x/week Duration of Treatment 2 months Plan of Care Start Date 05/12/19 Plan of Care End Date 07/12/19 Next Visit Focus/Plan Next Note Type Treatment Note Next Visit Plan cont to work on cervical & scapular stability; scap pnf
--- NOTE | 2019-07-03 09:56 | PT.OTN ---
Current Diagnoses Spinal stenosis, cervical region (07/03/19) Abnormal posture (07/03/19) Weakness (07/03/19) Physical Therapy Treatment Note PT-OP-A Visit Information Start: 12/30/18 09:09 Freq: Status: Active Protocol: Document 07/03/19 08:15 [facility] (Rec: 07/03/19 09:56 [facility] [id number]) Out-Patient Physical Therapy Visit Information Visit Information Visit Type Treatment Note Visit Start Time 08:15 Visit Stop Time 09:05 Total Visit Minutes 50 Visit Number 12/11 Number of DOMESTIC HOUSEKEEPER Visits 0 PT-OP-B Current Condition Start: 12/30/18 09:09 Freq: Status: Active Protocol: Document 12/30/18 11:15 [facility] (Rec: 12/30/18 12:09 [facility] [id number]) Current Condition History of Current Condition Onset Date 11/27/18 Current Complaints neck pain post surgery History of Current Condition Pt reports he had a C5-6 ant cervical discectomy w/ arthrodesis w/ant cervical plate on11/27/18 d/t dec B inspector publications strength & inc pain. Pt has nott been able to work since Jul. Pt is allowed to go on long walks and hikes Treatment Goals Patient/Caregiver Goals Return to work moy, build back up UE strength PT-OP-C Subjective Start: 12/30/18 09:09 Freq: Status: Active Protocol: Document 07/03/19 08:15 [facility] (Rec: 07/03/19 09:56 [facility] [id number]) OP-PT Subjective Patient Comments Patient Comments Pt reports RAMOS since sunday. PT-OP-F Manual Assessment Start: 12/30/18 09:09 Freq: Status: Active Protocol: Document 12/30/18 11:15 [facility] (Rec: 12/30/18 14:08 [facility] [id number]) Manual Assessments Soft Tissue Assessment Soft Tissue Mobility Assessment tightness along scar, UT, LS, cervical paraspinals, scalenes & SCM B PT-OP-J Posture/Palpation/Skin Start: 12/30/18 09:09 Freq: Status: Active Protocol: Document 02/27/19 08:15 [facility] (Rec: 02/27/19 08:33 [facility] [id number]) Posture Evaluation Mauri Postural Classification System Elbow Flexion Test 2 PT-OP-K Range of Motion Start: 12/30/18 09:09 Freq: Status: Active Protocol: Document 05/12/19 10:24 [facility] (Rec: 05/12/19 13:28 [facility] [id number]) Cervical Spine Range of Motion Cervical Spine Active Degrees Flexion 59 Extension 35 Rotation Left 54 Rotation Right 52 Lateral Flexion Left 38 Lateral Flexion Right 40 ROM Limitations Soft Tissue Tightness,Pain PT-OP-L Special Tests Start: 12/30/18 09:09 Freq: Status: Active Protocol: Document 12/30/18 11:15 [facility] (Rec: 12/30/18 12:09 [facility] [id number]) Special Tests Cervical Spine Special Tests Shoulder Abduction Test Test Results about 110 B Alar Ligament Test Results neg Neural Special Tests- Upper Body Radial Nerve Tension Test Results neg B Median Nerve Tension Test Results Neg B Ulnar Nerve Tension Test Results neg B PT-OP-M Strength Start: 12/30/18 09:09 Freq: Status: Active Protocol: Document 05/12/19 10:24 [facility] (Rec: 05/12/19 13:28 [facility] [id number]) Shoulder Strength Shoulder Manual Muscle Testing Right Flexion 4+ Good+ Extension 5 Normal Abduction (C5) 4 Good External Rotation 4+ Good+ Internal Rotation 4+ Good+ Comments EFT:2/5 Left Flexion 4+ Good+ Extension 4+ Good+ Abduction (C5) 4 Good External Rotation 4+ Good+ Internal Rotation 4+ Good+ Elbow/Forearm Strength Elbow and Forearm Manual Muscle Testing Right Flexion (C6) 4+ Good+ Extension (C7) 5 Normal Pronation 4+ Good+ Supination 5 Normal Left Flexion (C6) 4+ Good+ Extension (C7) 5 Normal Pronation 4 Good Supination 5 Normal Wrist Strength Wrist Manual Muscle Testing Right Flexion (C7) 4+ Good+ Extension (C6) 5 Normal Ulnar Deviation 5 Normal Radial Deviation 5 Normal Left Flexion (C7) 4+ Good+ Extension (C6) 5 Normal Ulnar Deviation 4+ Good+ Radial Deviation 5 Normal Hand Reverberatory Furnace Supervisor/Pinch Strength Hand Strength Right Reverberatory Furnace Supervisor (lbs) 105 Left Reverberatory Furnace Supervisor (lbs) 95 PT-OP-Q Treatments Start: 12/30/18 09:09 Freq: Status: Active Protocol: Document 07/03/19 08:15 [facility] (Rec: 07/03/19 09:56 [facility] [id number]) Cardio Equipment Upper Body Ergometer (UBE) Duration (Minutes) 5 RPM 60 Height 5 Other fwd/back Therapeutic Exercises Supine Exercises chin tucks and hold Supine Exercise Name axial elongation w/taking away hand support Reps/Minutes 8x 5 sec hold Sitting Exercises isometrics Sitting Exercise Name chin tucks Reps/Minutes 5sec x5 Manual Therapy Treatment Soft Tissue Mobilization cranial fascia Body Location R>L Mobilization Type Myofascial Release Intensity/Depth Superficial SCM Body Location R>L SCM & scalenes Mobilization Type Myofascial Release,Rolling Intensity/Depth Superficial scar tissue Body Location ant neck Mobilization Type Myofascial Release Intensity/Depth Superficial PT-OP-R Modalities Start: 12/30/18 09:09 Freq: Status: Active Protocol: Document 07/03/19 08:15 [facility] (Rec: 07/03/19 09:56 [facility] [id number]) Hot Pack/Cold Pack Treatment Hot Pack Location T/S and C/S Patient Position Supine Treatment Duration (minutes) 10 PT-OP-T Assessment and Plan Start: 12/30/18 09:09 Freq: Status: Active Protocol: Document 07/03/19 08:15 [facility] (Rec: 07/03/19 09:56 [facility] [id number]) Physical Therapy Assessment Goals ROM Foundry Process Engineer Goal (LTG) Pt will have WNL cervical ROM in order to allow him to do typical daily activities like reading, driving, looking up without pain. 02/27/19: Pt near normal into flexion. nearly doubled ROM in all other directions except R rotation. 03/26-All WFL except ext LTG Duration 07/12/19 strenght Short Term Goal (STG) Pt will be indep with HEP STG Duration goal met Residential Goal (LTG) Pt will have 5/5 UE strength & EFT in order to show improved stability 02/27/19: progress in shoulder strength. weakness with pronation. 03/26-significantly improved LTG Duration 07/12/19 work Short Term Goal (STG) Pt will have average inspector publications strength for his age allowing him to do his job abilities ( 110 B) 02/27/19: R 82 lbs, L 80 lbs STG Duration achieved L, still not R 04/15 Foundry Process Engineer Goal (LTG) Pt will be able to return to work with min restrictions. 02/27/19: not met. Pt has not been cleared to return to work . 03/26-pt to see surgeon in next couple weeks, no clearance 05/12-no clearance LTG Duration 07/12/19 NDI Short Term Goal (STG) Pt will have score of 10/50 in order to show improved functional ability. 02/27/19: not met, NDI score 16 /50 05/12-n/t STG Duration 06/01/20 Residential Goal (LTG) Pt will have score of no greater than 2/50 in order to show good functional ability 02/27/19: not met, NDI score 16 /50 LTG Duration 07/12/19 Assessment Summary Assessment Pt did well with cervical stability exercises but does require cueing to avoid going too far into end ranges. Pt has significant tightness in R ant neck >L which may restrict some of his postural positioning. Physical Therapy Plan Frequency and Duration Frequency of Treatment 1-2x/week Duration of Treatment 2 months Plan of Care Start Date 05/12/19 Plan of Care End Date 07/12/19 Next Visit Focus/Plan Next Note Type Treatment Note Next Visit Plan cont to work on cervical & scapular stability; scap pnf
--- NOTE | 2019-08-05 12:59 | PT.OTN ---
Current Diagnoses Spinal stenosis, cervical region (08/05/19) Abnormal posture (08/05/19) Weakness (08/05/19) Physical Therapy Treatment Note PT-OP-A Visit Information Start: 12/30/18 09:09 Freq: Status: Active Protocol: Document 08/05/19 09:04 [facility] (Rec: 08/05/19 12:59 [facility] [id number]) Out-Patient Physical Therapy Visit Information Visit Information Visit Type Progress Note Visit Start Time 09:03 Visit Stop Time 10:00 Total Visit Minutes 57 Visit Number 8 Number of HAND PAINTER Visits 0 PT-OP-B Current Condition Start: 12/30/18 09:09 Freq: Status: Active Protocol: Document 12/30/18 11:15 [facility] (Rec: 12/30/18 12:09 [facility] [id number]) Current Condition History of Current Condition Onset Date 11/27/18 Current Complaints neck pain post surgery History of Current Condition Pt reports he had a C5-6 ant cervical discectomy w/ arthrodesis w/ant cervical plate on11/27/18 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 Pt has nott been able to work since Jul. Pt is allowed to go on long walks and hikes Treatment Goals Patient/Caregiver Goals Return to work moy, build back up UE strength PT-OP-C Subjective Start: 12/30/18 09:09 Freq: Status: Active Protocol: Document 08/05/19 09:04 [facility] (Rec: 08/05/19 12:59 [facility] [id number]) OP-PT Subjective Patient Comments Patient Comments Pt reports MRI was clear for brain. waiting on MRI for neck PT-OP-F Manual Assessment Start: 12/30/18 09:09 Freq: Status: Active Protocol: Document 12/30/18 11:15 [facility] (Rec: 12/30/18 14:08 [facility] [id number]) Manual Assessments Soft Tissue Assessment Soft Tissue Mobility Assessment tightness along scar, UT, LS, cervical paraspinals, scalenes & SCM B PT-OP-J Posture/Palpation/Skin Start: 12/30/18 09:09 Freq: Status: Active Protocol: Document 02/27/19 08:15 [facility] (Rec: 02/27/19 08:33 [facility] [id number]) Posture Evaluation Mauri Postural Classification System Elbow Flexion Test 2 PT-OP-K Range of Motion Start: 12/30/18 09:09 Freq: Status: Active Protocol: Document 08/05/19 09:04 [facility] (Rec: 08/05/19 12:59 [facility] [id number]) Cervical Spine Range of Motion Cervical Spine Active Degrees Flexion 60 Extension 33 Rotation Left 57 Rotation Right 56 Lateral Flexion Left 42 Lateral Flexion Right 45 ROM Limitations Soft Tissue Tightness,Pain PT-OP-L Special Tests Start: 12/30/18 09:09 Freq: Status: Active Protocol: Document 12/30/18 11:15 [facility] (Rec: 12/30/18 12:09 [facility] [id number]) Special Tests Cervical Spine Special Tests Shoulder Abduction Test Test Results about 110 B Alar Ligament Test Results neg Neural Special Tests- Upper Body Radial Nerve Tension Test Results neg B Median Nerve Tension Test Results Neg B Ulnar Nerve Tension Test Results neg B PT-OP-M Strength Start: 12/30/18 09:09 Freq: Status: Active Protocol: Document 08/05/19 09:04 [facility] (Rec: 08/05/19 12:59 [facility] [id number]) Shoulder Strength Shoulder Manual Muscle Testing Right Flexion 4+ Good+ Extension 5 Normal Abduction (C5) 4+ Good+ External Rotation 4+ Good+ Internal Rotation 4+ Good+ Comments EFT:3/5 Left Flexion 4+ Good+ Extension 5 Normal Abduction (C5) 4+ Good+ External Rotation 5 Normal Internal Rotation 5 Normal Elbow/Forearm Strength Elbow and Forearm Manual Muscle Testing Right Flexion (C6) 4+ Good+ Extension (C7) 5 Normal Pronation 4+ Good+ Supination 5 Normal Left Flexion (C6) 4+ Good+ Extension (C7) 5 Normal Pronation 4+ Good+ Supination 5 Normal Wrist Strength Wrist Manual Muscle Testing Right Flexion (C7) 5 Normal Extension (C6) 5 Normal Ulnar Deviation 5 Normal Radial Deviation 5 Normal Left Flexion (C7) 5 Normal Extension (C6) 5 Normal Ulnar Deviation 5 Normal Radial Deviation 5 Normal Hand Tamale Maker/Pinch Strength Hand Strength Right Tamale Maker (lbs) 98 Left Tamale Maker (lbs) 100 PT-OP-Q Treatments Start: 12/30/18 09:09 Freq: Status: Active Protocol: Document 08/05/19 09:04 [facility] (Rec: 08/05/19 12:59 [facility] [id number]) Therapeutic Exercises Other Exercises stretch Other Exercise Name cat/camel x20 & oli pose x30 sec x2 Manual Therapy Treatment Soft Tissue Mobilization cranial fascia Body Location R>L & temporalis Mobilization Type Myofascial Release Intensity/Depth Superficial SCM Body Location R>L SCM & scalenes Mobilization Type Myofascial Release,Rolling Intensity/Depth Superficial PT-OP-R Modalities Start: 12/30/18 09:09 Freq: Status: Active Protocol: Document 08/05/19 09:04 [facility] (Rec: 08/05/19 12:59 [facility] [id number]) Hot Pack/Cold Pack Treatment Hot Pack Location T/S and C/S Patient Position Supine Treatment Duration (minutes) 15 PT-OP-T Assessment and Plan Start: 12/30/18 09:09 Freq: Status: Active Protocol: Document 08/05/19 09:04 [facility] (Rec: 08/05/19 12:59 [facility] [id number]) Physical Therapy Assessment Goals ROM [facility] Goal (LTG) Pt will have WNL cervical ROM in order to allow him to do typical daily activities like reading, driving, looking up without pain. 02/27/19: Pt near normal into flexion. nearly doubled ROM in all other directions except R rotation. 03/26-All WFL except ext LTG Duration 09/03/19 strenght Short Term Goal (STG) Pt will be indep with HEP STG Duration goal met Rehanger Goal (LTG) Pt will have 5/5 UE strength & EFT in order to show improved stability 02/27/19: progress in shoulder strength. weakness with pronation. 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 02/27/19: not met. Pt has not been cleared to return to work . 03/26-pt to see surgeon in next couple weeks, no clearance 05/12-no clearance 08/05-no clearance LTG Duration 09/03/19 NDI Short Term Goal (STG) Pt will have score of 10/50 in order to show improved functional ability. 02/27/19: not met, NDI score 16 /50 05/12-n/t STG Duration 09/03/19 Rehanger Goal (LTG) Pt will have score of no greater than 2/50 in order to show good functional ability 02/27/19: not met, NDI score 16 /50 LTG Duration 09/14/19 Assessment Summary Assessment Pt cont to have dec overall mobility but is slowly inc in strength. He has had minor changes in ROM and still having difficulty with activity d/t overall body fatigue. He is working with his L&I MD at this time re: follow up MRI to cervical spine d/t cont RAMOS & neck pain. Physical Therapy Plan Frequency and Duration Frequency of Treatment 1-2x/week Duration of Treatment 2 months Plan of Care Start Date 08/05/19 Plan of Care End Date 10/04/19 Therapeutic Interventions Therapeutic Interventions Home Exercise Program,Joint Mobilizations,Manual Therapy, Patient/Caregiver Education, Self-Care/Home Management,Soft Tissue Mobilization,Taping, Therapeutic Activities, Therapeutic Exercises Modalities Cold Pack/Ice Massage,Electric Stimulation,Hot Packs, Infrared Therapy,Iontophoresis ,Ultrasound Next Visit Focus/Plan Next Note Type Treatment Note Next Visit Plan work on improving cervical rotation & ext motions
--- NOTE | 2019-08-05 12:59 | PT.OPPOC ---
Physical, Occupational & Speech Therapy At [facility] Current Diagnoses Spinal stenosis, cervical region (08/05/19) Abnormal posture (08/05/19) Weakness (08/05/19) Visit Care Team Role Provider Type VALERY Antoine Primary Care Provider Non-Staff Specialty: Family Practice Address: [address] [place] [address], [address], [place], [address] Email: Ulices Duong MD Attending Provider Non-Staff Specialty: Medical Address: [address] [place] [address], [id number] Email: Plan Of Care PT-OP-T Assessment and Plan Start: 12/30/18 09:09 Freq: Status: Active Protocol: Document 08/05/19 09:04 [facility] (Rec: 08/05/19 12:59 [facility] [id number]) Physical Therapy Assessment Goals ROM Quality Analyst/Technical Writer Goal (LTG) Pt will have WNL cervical ROM in order to allow him to do typical daily activities like reading, driving, looking up without pain. 02/27/19: Pt near normal into flexion. nearly doubled ROM in all other directions except R rotation. 03/26-All WFL except ext LTG Duration 09/03/19 strenght Short Term Goal (STG) Pt will be indep with HEP STG Duration goal met Quality Analyst/Technical Writer Goal (LTG) Pt will have 5/5 UE strength & EFT in order to show improved stability 02/27/19: progress in shoulder strength. weakness with pronation. 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 02/27/19: not met. Pt has not been cleared to return to work . 03/26-pt to see surgeon in next couple weeks, no clearance 05/12-no clearance 08/05-no clearance LTG Duration 09/03/19 NDI Short Term Goal (STG) Pt will have score of 10/50 in order to show improved functional ability. 02/27/19: not met, NDI score 16 /50 05/12-n/t STG Duration 09/03/19 Quality Analyst/Technical Writer Goal (LTG) Pt will have score of no greater than 2/50 in order to show good functional ability 02/27/19: not met, NDI score 16 /50 LTG Duration 09/14/19 Assessment Summary Assessment Pt cont to have dec overall mobility but is slowly inc in strength. He has had minor changes in ROM and still having difficulty with activity d/t overall body fatigue. He is working with his L&I MD at this time re: follow up MRI to cervical spine d/t cont RAMOS & neck pain. Physical Therapy Plan Frequency and Duration Frequency of Treatment 1-2x/week Duration of Treatment 2 months Plan of Care Start Date 08/05/19 Plan of Care End Date 10/04/19 Therapeutic Interventions Therapeutic Interventions Home Exercise Program,Joint Mobilizations,Manual Therapy, Patient/Caregiver Education, Self-Care/Home Management,Soft Tissue Mobilization,Taping, Therapeutic Activities, Therapeutic Exercises Modalities Cold Pack/Ice Massage,Electric Stimulation,Hot Packs, Infrared Therapy,Iontophoresis ,Ultrasound Next Visit Focus/Plan Next Note Type Treatment Note Next Visit Plan work on improving cervical rotation & ext motions Plan of Care Dates Plan of Care Start Date 08/05/19 Plan of Care End Date 10/04/19 Electronically Signed by: Maribel Dietz, PT 08/05/19 [id number] Please Sign and Return: I have reviewed this Plan of Care and certify that the skilled therapy services above are required to meet the patient?s needs. Physician Signature Date Printed Name and Credentials Clinical Instructor Signature Printed Name and Credentials
--- NOTE | 2019-08-07 09:00 | PT.OTN ---
Current Diagnoses Spinal stenosis, cervical region (08/07/19) Abnormal posture (08/07/19) Weakness (08/07/19) Physical Therapy Treatment Note PT-OP-A Visit Information Start: 12/30/18 09:09 Freq: Status: Active Protocol: Document 08/07/19 09:00 [facility] (Rec: 08/07/19 18:47 [facility] [id number]) Out-Patient Physical Therapy Visit Information Visit Information Visit Type Treatment Note Visit Start Time 09:00 Visit Stop Time 09:55 Total Visit Minutes 55 Visit Number 03/13 Number of ENGINE DISPATCHER Visits 0 Evaluation Information Evaluation Date 12/30/18 PT-OP-B Current Condition Start: 12/30/18 09:09 Freq: Status: Active Protocol: Document 12/30/18 11:15 [facility] (Rec: 12/30/18 12:09 [facility] [id number]) Current Condition History of Current Condition Onset Date 11/27/18 Current Complaints neck pain post surgery History of Current Condition Pt reports he had a C5-6 ant cervical discectomy w/ arthrodesis w/ant cervical plate on11/27/18 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 Pt has nott been able to work since Jul. Pt is allowed to go on long walks and hikes Treatment Goals Patient/Caregiver Goals Return to work moy, build back up UE strength PT-OP-C Subjective Start: 12/30/18 09:09 Freq: Status: Active Protocol: Document 08/07/19 09:00 [facility] (Rec: 08/07/19 18:47 [facility] [id number]) OP-PT Subjective Patient Comments Patient Comments He has a dull ache in the back of his neck that is constant. He is getting headaches 4-5x/ week. He has no increase in his pain playing his guitar. Patient Reported Progress Same PT-OP-F Manual Assessment Start: 12/30/18 09:09 Freq: Status: Active Protocol: Document 12/30/18 11:15 [facility] (Rec: 12/30/18 14:08 [facility] [id number]) Manual Assessments Soft Tissue Assessment Soft Tissue Mobility Assessment tightness along scar, UT, LS, cervical paraspinals, scalenes & SCM B PT-OP-J Posture/Palpation/Skin Start: 12/30/18 09:09 Freq: Status: Active Protocol: Document 02/27/19 08:15 [facility] (Rec: 02/27/19 08:33 [facility] [id number]) Posture Evaluation [facility] Postural Classification System Elbow Flexion Test 2 PT-OP-K Range of Motion Start: 12/30/18 09:09 Freq: Status: Active Protocol: Document 08/05/19 09:04 [facility] (Rec: 08/05/19 12:59 [facility] [id number]) Cervical Spine Range of Motion Cervical Spine Active Degrees Flexion 60 Extension 33 Rotation Left 57 Rotation Right 56 Lateral Flexion Left 42 Lateral Flexion Right 45 ROM Limitations Soft Tissue Tightness,Pain PT-OP-L Special Tests Start: 12/30/18 09:09 Freq: Status: Active Protocol: Document 12/30/18 11:15 [facility] (Rec: 12/30/18 12:09 [facility] [id number]) Special Tests Cervical Spine Special Tests Shoulder Abduction Test Test Results about 110 B Alar Ligament Test Results neg Neural Special Tests- Upper Body Radial Nerve Tension Test Results neg B Median Nerve Tension Test Results Neg B Ulnar Nerve Tension Test Results neg B PT-OP-M Strength Start: 12/30/18 09:09 Freq: Status: Active Protocol: Document 08/05/19 09:04 [facility] (Rec: 08/05/19 12:59 [facility] [id number]) Shoulder Strength Shoulder Manual Muscle Testing Right Flexion 4+ Good+ Extension 5 Normal Abduction (C5) 4+ Good+ External Rotation 4+ Good+ Internal Rotation 4+ Good+ Comments EFT:3/5 Left Flexion 4+ Good+ Extension 5 Normal Abduction (C5) 4+ Good+ External Rotation 5 Normal Internal Rotation 5 Normal Elbow/Forearm Strength Elbow and Forearm Manual Muscle Testing Right Flexion (C6) 4+ Good+ Extension (C7) 5 Normal Pronation 4+ Good+ Supination 5 Normal Left Flexion (C6) 4+ Good+ Extension (C7) 5 Normal Pronation 4+ Good+ Supination 5 Normal Wrist Strength Wrist Manual Muscle Testing Right Flexion (C7) 5 Normal Extension (C6) 5 Normal Ulnar Deviation 5 Normal Radial Deviation 5 Normal Left Flexion (C7) 5 Normal Extension (C6) 5 Normal Ulnar Deviation 5 Normal Radial Deviation 5 Normal Hand Farm Mechanic Apprentice/Pinch Strength Hand Strength Right Farm Mechanic Apprentice (lbs) 98 Left Farm Mechanic Apprentice (lbs) 100 PT-OP-Q Treatments Start: 12/30/18 09:09 Freq: Status: Active Protocol: Document 08/07/19 09:00 [facility] (Rec: 08/07/19 18:47 [facility] [id number]) Cardio Equipment Upper Body Ergometer (UBE) Duration (Minutes) 5 RPM 60 Height 5 Other fwd/back Therapeutic Exercises Supine Exercises chin tucks and hold Supine Exercise Name axial elongation w/taking away hand support Reps/Minutes 8x 5 sec hold foam roll Supine Exercise Name postural stretch Comments intermittent reach over head Sitting Exercises AROM cervical rotation Sitting Exercise Name rotation Side bilateral Resistance c/o catching to right Reps/Minutes 10 reps each side Comments also performed in supine Standing Exercises squat w weight Standing Exercise Name pt using kettle ohara at gym Comments educated pt to modify position to avoid forward head wall posture Standing Exercise Name back and head to wall Resistance slide in/out of squat Comments squat position Manual Therapy Treatment Soft Tissue Mobilization Sub-occipital Body Location suboccipital release Mobilization Type Sustained Pressure Intensity/Depth Moderate Body Position Supine cranial fascia Body Location R>L & temporalis Mobilization Type Myofascial Release Intensity/Depth Superficial Pectorals Body Location major & minor Mobilization Type Sustained Pressure Intensity/Depth Moderate Body Position Supine Comments left tighter than right cervical paraspinals Mobilization Type Strumming Intensity/Depth Moderate Body Position Supine Self-Care/Home Management Treatment Education Patient Education Home Exercise Program,Joint Protection,Posture Other Education started review of gym exercises and recommend he change any exercise that pulls his neck forward PT-OP-R Modalities Start: 12/30/18 09:09 Freq: Status: Active Protocol: Document 08/07/19 09:00 [facility] (Rec: 08/07/19 18:48 DL [id number]) Hot Pack/Cold Pack Treatment Hot Pack Location T/S and C/S Patient Position Hooklying Treatment Duration (minutes) 10 Patient Tolerance Good Comments pt requested only 10 min PT-OP-T Assessment and Plan Start: 12/30/18 09:09 Freq: Status: Active Protocol: Document 08/07/19 09:00 [facility] (Rec: 08/07/19 18:47 DL [id number]) Physical Therapy Assessment Goals ROM Winch Derrick Operator Goal (LTG) Pt will have WNL cervical ROM in order to allow him to do typical daily activities like reading, driving, looking up without pain. 02/27/19: Pt near normal into flexion. nearly doubled ROM in all other directions except R rotation. 03/26-All WFL except ext LTG Duration 09/03/19 strenght Short Term Goal (STG) Pt will be indep with HEP STG Duration goal met Winch Derrick Operator Goal (LTG) Pt will have 5/5 UE strength & EFT in order to show improved stability 02/27/19: progress in shoulder strength. weakness with pronation. 03/26-significantly improved 08/05-improved to >4+/5 LTG Duration 09/03/19 work Short Term Goal (STG) Pt will have average travel money advisor strength for his age allowing him to do his job abilities ( 110 B) 02/27/19: R 82 lbs, L 80 lbs STG Duration achieved L, still not R 04/15 [facility] Goal (LTG) Pt will be able to return to work with min restrictions. 02/27/19: not met. Pt has not been cleared to return to work . 03/26-pt to see surgeon in next couple weeks, no clearance 05/12-no clearance 08/05-no clearance LTG Duration 09/03/19 NDI Short Term Goal (STG) Pt will have score of 10/50 in order to show improved functional ability. 02/27/19: not met, NDI score 16 /50 05/12-n/t STG Duration 09/03/19 [facility] Goal (LTG) Pt will have score of no greater than 2/50 in order to show good functional ability 02/27/19: not met, NDI score 16 /50 LTG Duration 09/14/19 Progress Towards Goals Progress Towards Goals Slow Progress - Other Assessment Summary Assessment He tolerated treatment session well over-all. Significant forward head posture noted which improved with treatment. He could benefit from further review of his gym exercises that he does on his own to decrease his cervical strain. Soft tissue tightness improved with manual therapy. Physical Therapy Plan Frequency and Duration Frequency of Treatment 1-2x/week Duration of Treatment 2 months Plan of Care Start Date 08/05/19 Plan of Care End Date 10/04/19 Therapeutic Interventions Therapeutic Interventions Home Exercise Program,Joint Mobilizations,Manual Therapy, Patient/Caregiver Education, Self-Care/Home Management,Soft Tissue Mobilization,Taping, Therapeutic Activities, Therapeutic Exercises Modalities Cold Pack/Ice Massage,Electric Stimulation,Hot Packs, Infrared Therapy,Iontophoresis ,Ultrasound Next Visit Focus/Plan Next Note Type Treatment Note Next Visit Plan continue to progress cervical ROM
--- NOTE | 2019-08-12 15:12 | PT.OTN ---
Current Diagnoses Spinal stenosis, cervical region (08/12/19) Abnormal posture (08/12/19) Weakness (08/12/19) Physical Therapy Treatment Note PT-OP-A Visit Information Start: 12/30/18 09:09 Freq: Status: Active Protocol: Document 08/12/19 13:00 [facility] (Rec: 08/12/19 15:12 [facility] [id number]) Out-Patient Physical Therapy Visit Information Visit Information Visit Type Treatment Note Visit Start Time 13:01 Visit Stop Time 14:00 Total Visit Minutes 59 Visit Number 04/12 Number of FIELD LIABILITY GENERALIST Visits 0 PT-OP-B Current Condition Start: 12/30/18 09:09 Freq: Status: Active Protocol: Document 12/30/18 11:15 [facility] (Rec: 12/30/18 12:09 [facility] [id number]) Current Condition History of Current Condition Onset Date 11/27/18 Current Complaints neck pain post surgery History of Current Condition Pt reports he had a C5-6 ant cervical discectomy w/ arthrodesis w/ant cervical plate on11/27/18 d/t dec B program coordinator for residence life strength & inc pain. Pt has nott been able to work since Jul. Pt is allowed to go on long walks and hikes Treatment Goals Patient/Caregiver Goals Return to work moy, build back up UE strength PT-OP-C Subjective Start: 12/30/18 09:09 Freq: Status: Active Protocol: Document 08/12/19 13:00 [facility] (Rec: 08/12/19 15:12 [facility] [id number]) OP-PT Subjective Patient Comments Patient Comments Pt reports last his neck completely locked up later in the day where he couldn't move his neck and it is only started to loosen up today but it is still pulling . He has a MRI for his neck next Sun. PT-OP-F Manual Assessment Start: 12/30/18 09:09 Freq: Status: Active Protocol: Document 12/30/18 11:15 [facility] (Rec: 12/30/18 14:08 [facility] [id number]) Manual Assessments Soft Tissue Assessment Soft Tissue Mobility Assessment tightness along scar, UT, LS, cervical paraspinals, scalenes & SCM B PT-OP-J Posture/Palpation/Skin Start: 12/30/18 09:09 Freq: Status: Active Protocol: Document 02/27/19 08:15 [facility] (Rec: 02/27/19 08:33 [facility] [id number]) Posture Evaluation [facility] Postural Classification System Elbow Flexion Test 2 PT-OP-K Range of Motion Start: 12/30/18 09:09 Freq: Status: Active Protocol: Document 08/05/19 09:04 [facility] (Rec: 08/05/19 12:59 [facility] [id number]) Cervical Spine Range of Motion Cervical Spine Active Degrees Flexion 60 Extension 33 Rotation Left 57 Rotation Right 56 Lateral Flexion Left 42 Lateral Flexion Right 45 ROM Limitations Soft Tissue Tightness,Pain PT-OP-L Special Tests Start: 12/30/18 09:09 Freq: Status: Active Protocol: Document 12/30/18 11:15 [facility] (Rec: 12/30/18 12:09 [facility] [id number]) Special Tests Cervical Spine Special Tests Shoulder Abduction Test Test Results about 110 B Alar Ligament Test Results neg Neural Special Tests- Upper Body Radial Nerve Tension Test Results neg B Median Nerve Tension Test Results Neg B Ulnar Nerve Tension Test Results neg B PT-OP-M Strength Start: 12/30/18 09:09 Freq: Status: Active Protocol: Document 08/05/19 09:04 [facility] (Rec: 08/05/19 12:59 [facility] [id number]) Shoulder Strength Shoulder Manual Muscle Testing Right Flexion 4+ Good+ Extension 5 Normal Abduction (C5) 4+ Good+ External Rotation 4+ Good+ Internal Rotation 4+ Good+ Comments EFT:3/5 Left Flexion 4+ Good+ Extension 5 Normal Abduction (C5) 4+ Good+ External Rotation 5 Normal Internal Rotation 5 Normal Elbow/Forearm Strength Elbow and Forearm Manual Muscle Testing Right Flexion (C6) 4+ Good+ Extension (C7) 5 Normal Pronation 4+ Good+ Supination 5 Normal Left Flexion (C6) 4+ Good+ Extension (C7) 5 Normal Pronation 4+ Good+ Supination 5 Normal Wrist Strength Wrist Manual Muscle Testing Right Flexion (C7) 5 Normal Extension (C6) 5 Normal Ulnar Deviation 5 Normal Radial Deviation 5 Normal Left Flexion (C7) 5 Normal Extension (C6) 5 Normal Ulnar Deviation 5 Normal Radial Deviation 5 Normal Hand Heel Buffer/Pinch Strength Hand Strength Right Heel Buffer (lbs) 98 Left Heel Buffer (lbs) 100 PT-OP-Q Treatments Start: 12/30/18 09:09 Freq: Status: Active Protocol: Document 08/12/19 13:00 [facility] (Rec: 08/12/19 15:12 [facility] [id number]) Cardio Equipment Upper Body Ergometer (UBE) Duration (Minutes) 5 RPM 60 Height 5 Other fwd/back Therapeutic Exercises Sidelying Exercises T/S rotation Sidelying Exercise Name open book Side bilateral Reps/Minutes 15 each side Standing Exercises wall posture Standing Exercise Name pillow behind head Comments slight squat position; w/ shoulder ext & abd & 90/90 ER Other Exercises stretch Other Exercise Name cat/camel x20 & oli pose x30 sec x2 Manual Therapy Treatment Soft Tissue Mobilization T/S paraspinals Body Location R T1-3 R>L Mobilization Type Rolling,Strumming Intensity/Depth Moderate Body Position Supine UT, scalenes Body Location R sided Mobilization Type Myofascial Release,Rolling, Strumming cervical paraspinals Mobilization Type Strumming Intensity/Depth Moderate Body Position Supine SOR Body Location SOR Intensity/Depth Superficial Body Position Supine Joint Mobilizations C1 Direction transverse L glide Grade II PT-OP-R Modalities Start: 12/30/18 09:09 Freq: Status: Active Protocol: Document 08/12/19 13:00 [facility] (Rec: 08/12/19 15:12 [facility] [id number]) Hot Pack/Cold Pack Treatment Hot Pack Location T/S and C/S Patient Position Supine Treatment Duration (minutes) 15 PT-OP-T Assessment and Plan Start: 12/30/18 09:09 Freq: Status: Active Protocol: Document 08/12/19 13:00 [facility] (Rec: 08/12/19 15:12 [facility] [id number]) Physical Therapy Assessment Goals ROM Alf Goal (LTG) Pt will have WNL cervical ROM in order to allow him to do typical daily activities like reading, driving, looking up without pain. 02/27/19: Pt near normal into flexion. nearly doubled ROM in all other directions except R rotation. 03/26-All WFL except ext LTG Duration 09/03/19 strenght Short Term Goal (STG) Pt will be indep with HEP STG Duration goal met Alf Goal (LTG) Pt will have 5/5 UE strength & EFT in order to show improved stability 02/27/19: progress in shoulder strength. weakness with pronation. 03/26-significantly improved 08/05-improved to >4+/5 LTG Duration 09/03/19 work Short Term Goal (STG) Pt will have average program coordinator for residence life strength for his age allowing him to do his job abilities ( 110 B) 02/27/19: R 82 lbs, L 80 lbs STG Duration achieved L, still not R 04/15 Mine Utility Operator Goal (LTG) Pt will be able to return to work with min restrictions. 02/27/19: not met. Pt has not been cleared to return to work . 03/26-pt to see surgeon in next couple weeks, no clearance 05/12-no clearance 08/05-no clearance LTG Duration 09/03/19 NDI Short Term Goal (STG) Pt will have score of 10/50 in order to show improved functional ability. 02/27/19: not met, NDI score 16 /50 05/12-n/t STG Duration 09/03/19 Mine Utility Operator Goal (LTG) Pt will have score of no greater than 2/50 in order to show good functional ability 02/27/19: not met, NDI score 16 /50 LTG Duration 09/14/19 Assessment Summary Assessment Pt did well with stretching exercises but did require a pillow behind head in order to get head in more neutral positiong, otherwise he had ot extend neck to get head on wall. He had improved ROM with STM but is still limited with rotation and ext. Physical Therapy Plan Frequency and Duration Frequency of Treatment 1-2x/week Duration of Treatment 2 months Plan of Care Start Date 08/05/19 Plan of Care End Date 10/04/19 Next Visit Focus/Plan Next Note Type Treatment Note Next Visit Plan work on independence to HEP over next few visits
--- NOTE | 2019-08-14 16:02 | PT.OTN ---
Current Diagnoses Spinal stenosis, cervical region (08/14/19) Abnormal posture (08/14/19) Weakness (08/14/19) Physical Therapy Treatment Note PT-OP-A Visit Information Start: 12/30/18 09:09 Freq: Status: Active Protocol: Document 08/14/19 09:08 [facility] (Rec: 08/14/19 16:02 [facility] [id number]) Out-Patient Physical Therapy Visit Information Visit Information Visit Type Treatment Note Visit Start Time 09:04 Visit Stop Time 09:55 Total Visit Minutes 51 Visit Number 04/12 Number of SOFTWARE QUALITY TEST ENGINEER Visits 0 PT-OP-B Current Condition Start: 12/30/18 09:09 Freq: Status: Active Protocol: Document 12/30/18 11:15 [facility] (Rec: 12/30/18 12:09 [facility] [id number]) Current Condition History of Current Condition Onset Date 11/27/18 Current Complaints neck pain post surgery History of Current Condition Pt reports he had a C5-6 ant cervical discectomy w/ arthrodesis w/ant cervical plate on11/27/18 d/t dec B epilepsy physician strength & inc pain. Pt has nott been able to work since Jul. Pt is allowed to go on long walks and hikes Treatment Goals Patient/Caregiver Goals Return to work moy, build back up UE strength PT-OP-C Subjective Start: 12/30/18 09:09 Freq: Status: Active Protocol: Document 08/14/19 09:08 [facility] (Rec: 08/14/19 16:02 [facility] [id number]) OP-PT Subjective Patient Comments Patient Comments Pt reports he went to bed with a RAMOS and he still has one today. Reports RAMOS in forehead. PT-OP-F Manual Assessment Start: 12/30/18 09:09 Freq: Status: Active Protocol: Document 12/30/18 11:15 [facility] (Rec: 12/30/18 14:08 [facility] [id number]) Manual Assessments Soft Tissue Assessment Soft Tissue Mobility Assessment tightness along scar, UT, LS, cervical paraspinals, scalenes & SCM B PT-OP-J Posture/Palpation/Skin Start: 12/30/18 09:09 Freq: Status: Active Protocol: Document 02/27/19 08:15 [facility] (Rec: 02/27/19 08:33 [facility] [id number]) Posture Evaluation [facility] Postural Classification System Elbow Flexion Test 2 PT-OP-K Range of Motion Start: 12/30/18 09:09 Freq: Status: Active Protocol: Document 08/05/19 09:04 [facility] (Rec: 08/05/19 12:59 [facility] [id number]) Cervical Spine Range of Motion Cervical Spine Active Degrees Flexion 60 Extension 33 Rotation Left 57 Rotation Right 56 Lateral Flexion Left 42 Lateral Flexion Right 45 ROM Limitations Soft Tissue Tightness,Pain PT-OP-L Special Tests Start: 12/30/18 09:09 Freq: Status: Active Protocol: Document 12/30/18 11:15 [facility] (Rec: 12/30/18 12:09 [facility] [id number]) Special Tests Cervical Spine Special Tests Shoulder Abduction Test Test Results about 110 B Alar Ligament Test Results neg Neural Special Tests- Upper Body Radial Nerve Tension Test Results neg B Median Nerve Tension Test Results Neg B Ulnar Nerve Tension Test Results neg B PT-OP-M Strength Start: 12/30/18 09:09 Freq: Status: Active Protocol: Document 08/05/19 09:04 [facility] (Rec: 08/05/19 12:59 [facility] [id number]) Shoulder Strength Shoulder Manual Muscle Testing Right Flexion 4+ Good+ Extension 5 Normal Abduction (C5) 4+ Good+ External Rotation 4+ Good+ Internal Rotation 4+ Good+ Comments EFT:3/5 Left Flexion 4+ Good+ Extension 5 Normal Abduction (C5) 4+ Good+ External Rotation 5 Normal Internal Rotation 5 Normal Elbow/Forearm Strength Elbow and Forearm Manual Muscle Testing Right Flexion (C6) 4+ Good+ Extension (C7) 5 Normal Pronation 4+ Good+ Supination 5 Normal Left Flexion (C6) 4+ Good+ Extension (C7) 5 Normal Pronation 4+ Good+ Supination 5 Normal Wrist Strength Wrist Manual Muscle Testing Right Flexion (C7) 5 Normal Extension (C6) 5 Normal Ulnar Deviation 5 Normal Radial Deviation 5 Normal Left Flexion (C7) 5 Normal Extension (C6) 5 Normal Ulnar Deviation 5 Normal Radial Deviation 5 Normal Hand Instructor Dancing/Pinch Strength Hand Strength Right Instructor Dancing (lbs) 98 Left Instructor Dancing (lbs) 100 PT-OP-Q Treatments Start: 12/30/18 09:09 Freq: Status: Active Protocol: Document 08/14/19 09:08 [facility] (Rec: 08/14/19 16:02 [facility] [id number]) Cardio Equipment Upper Body Ergometer (UBE) Duration (Minutes) 5 RPM 60 Height 5 Other fwd/back Gym Equipment Cable Column (Body Solid) Lat Pull Down Resistance 3 Reps/Time 12 Therapeutic Exercises Standing Exercises kettle ohara exercises Standing Exercise Name 1.swings 2. squats 3. rows Comments focus on scap and neck position Manual Therapy Treatment Soft Tissue Mobilization Sub-occipital Body Location suboccipital release Mobilization Type Sustained Pressure Intensity/Depth Moderate Body Position Supine cranial fascia Body Location R>L & temporalis Mobilization Type Myofascial Release Intensity/Depth Superficial UT, scalenes Body Location R sided Mobilization Type Myofascial Release,Rolling, Strumming PT-OP-R Modalities Start: 12/30/18 09:09 Freq: Status: Active Protocol: Document 08/14/19 09:08 [facility] (Rec: 08/14/19 16:02 [facility] [id number]) Hot Pack/Cold Pack Treatment Hot Pack Location T/S and C/S Patient Position Supine Treatment Duration (minutes) 10 PT-OP-T Assessment and Plan Start: 12/30/18 09:09 Freq: Status: Active Protocol: Document 08/14/19 09:08 [facility] (Rec: 08/14/19 16:02 [facility] [id number]) Physical Therapy Assessment Goals ROM Prison Goal (LTG) Pt will have WNL cervical ROM in order to allow him to do typical daily activities like reading, driving, looking up without pain. 02/27/19: Pt near normal into flexion. nearly doubled ROM in all other directions except R rotation. 03/26-All WFL except ext LTG Duration 09/03/19 strenght Short Term Goal (STG) Pt will be indep with HEP STG Duration goal met Technology Resource Teacher Goal (LTG) Pt will have 5/5 UE strength & EFT in order to show improved stability 02/27/19: progress in shoulder strength. weakness with pronation. 03/26-significantly improved 2/4-improved to >4+/5 LTG Duration 09/03/19 work Short Term Goal (STG) Pt will have average epilepsy physician strength for his age allowing him to do his job abilities ( 110 B) 02/27/19: R 82 lbs, L 80 lbs STG Duration achieved L, still not R 04/15 Prison Goal (LTG) Pt will be able to return to work with min restrictions. 02/27/19: not met. Pt has not been cleared to return to work . 03/26-pt to see surgeon in next couple weeks, no clearance 05/12-no clearance 08/05-no clearance LTG Duration 09/03/19 NDI Short Term Goal (STG) Pt will have score of 10/50 in order to show improved functional ability. 02/27/19: not met, NDI score 16 /50 05/12-n/t STG Duration 09/03/19 Technology Resource Teacher Goal (LTG) Pt will have score of no greater than 2/50 in order to show good functional ability 02/27/19: not met, NDI score 16 /50 LTG Duration 09/14/19 Assessment Summary Assessment Pt had difficulty with his typical kettle ohara exercises with preventing signfiicant fwd head & UT activiation. Signfiicant cues required. He cont to have R>L tightness and is encouraged to cont stretching exercises Physical Therapy Plan Frequency and Duration Frequency of Treatment 1-2x/week Duration of Treatment 2 months Plan of Care Start Date 08/05/19 Plan of Care End Date 10/04/19 Next Visit Focus/Plan Next Note Type Treatment Note Next Visit Plan work on independence to HEP over next few visits
--- NOTE | 2019-08-18 09:50 | PT.OTN ---
Current Diagnoses Spinal stenosis, cervical region (08/18/19) Abnormal posture (08/18/19) Weakness (08/18/19) Physical Therapy Treatment Note PT-OP-A Visit Information Start: 12/30/18 09:09 Freq: Status: Active Protocol: Document 08/18/19 08:59 [facility] (Rec: 08/18/19 09:46 [facility] [id number]) Out-Patient Physical Therapy Visit Information Visit Information Visit Type Treatment Note Visit Start Time 09:00 Visit Stop Time 09:50 Total Visit Minutes 50 Visit Number 05/13 Number of LADLE PATCHER Visits 0 PT-OP-B Current Condition Start: 12/30/18 09:09 Freq: Status: Active Protocol: Document 12/30/18 11:15 [facility] (Rec: 12/30/18 12:09 [facility] [id number]) Current Condition History of Current Condition Onset Date 11/27/18 Current Complaints neck pain post surgery History of Current Condition Pt reports he had a C5-6 ant cervical discectomy w/ arthrodesis w/ant cervical plate on11/27/18 d/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 Pt has nott been able to work since Jul. Pt is allowed to go on long walks and hikes Treatment Goals Patient/Caregiver Goals Return to work moy, build back up UE strength PT-OP-C Subjective Start: 12/30/18 09:09 Freq: Status: Active Protocol: Document 08/18/19 08:59 [facility] (Rec: 08/18/19 09:46 [facility] [id number]) OP-PT Subjective Patient Comments Patient Comments Pt reports he is doing prestty well today. Good sleep last night PT-OP-F Manual Assessment Start: 12/30/18 09:09 Freq: Status: Active Protocol: Document 12/30/18 11:15 [facility] (Rec: 12/30/18 14:08 [facility] [id number]) Manual Assessments Soft Tissue Assessment Soft Tissue Mobility Assessment tightness along scar, UT, LS, cervical paraspinals, scalenes & SCM B PT-OP-J Posture/Palpation/Skin Start: 12/30/18 09:09 Freq: Status: Active Protocol: Document 02/27/19 08:15 [facility] (Rec: 02/27/19 08:33 [facility] [id number]) Posture Evaluation [facility] Postural Classification System Elbow Flexion Test 2 PT-OP-K Range of Motion Start: 12/30/18 09:09 Freq: Status: Active Protocol: Document 08/05/19 09:04 [facility] (Rec: 08/05/19 12:59 [facility] [id number]) Cervical Spine Range of Motion Cervical Spine Active Degrees Flexion 60 Extension 33 Rotation Left 57 Rotation Right 56 Lateral Flexion Left 42 Lateral Flexion Right 45 ROM Limitations Soft Tissue Tightness,Pain PT-OP-L Special Tests Start: 12/30/18 09:09 Freq: Status: Active Protocol: Document 12/30/18 11:15 [facility] (Rec: 12/30/18 12:09 [facility] [id number]) Special Tests Cervical Spine Special Tests Shoulder Abduction Test Test Results about 110 B Alar Ligament Test Results neg Neural Special Tests- Upper Body Radial Nerve Tension Test Results neg B Median Nerve Tension Test Results Neg B Ulnar Nerve Tension Test Results neg B PT-OP-M Strength Start: 12/30/18 09:09 Freq: Status: Active Protocol: Document 08/05/19 09:04 [facility] (Rec: 08/05/19 12:59 [facility] [id number]) Shoulder Strength Shoulder Manual Muscle Testing Right Flexion 4+ Good+ Extension 5 Normal Abduction (C5) 4+ Good+ External Rotation 4+ Good+ Internal Rotation 4+ Good+ Comments EFT:3/5 Left Flexion 4+ Good+ Extension 5 Normal Abduction (C5) 4+ Good+ External Rotation 5 Normal Internal Rotation 5 Normal Elbow/Forearm Strength Elbow and Forearm Manual Muscle Testing Right Flexion (C6) 4+ Good+ Extension (C7) 5 Normal Pronation 4+ Good+ Supination 5 Normal Left Flexion (C6) 4+ Good+ Extension (C7) 5 Normal Pronation 4+ Good+ Supination 5 Normal Wrist Strength Wrist Manual Muscle Testing Right Flexion (C7) 5 Normal Extension (C6) 5 Normal Ulnar Deviation 5 Normal Radial Deviation 5 Normal Left Flexion (C7) 5 Normal Extension (C6) 5 Normal Ulnar Deviation 5 Normal Radial Deviation 5 Normal Hand Fleet Operations Manager/Pinch Strength Hand Strength Right Fleet Operations Manager (lbs) 98 Left Fleet Operations Manager (lbs) 100 PT-OP-Q Treatments Start: 12/30/18 09:09 Freq: Status: Active Protocol: Document 08/18/19 08:59 [facility] (Rec: 08/18/19 09:46 [facility] [id number]) Cardio Equipment Upper Body Ergometer (UBE) Duration (Minutes) 5 RPM 60 Height 4.5 Other fwd/back Therapeutic Exercises Prone Exercises plank Reps/Minutes 15sec Comments focus on scap & head position Standing Exercises kettle ohara exercises Standing Exercise Name 1.swings 2. squats 3. rows 4. squat row 5. clean and press Equipment Used 5# B Comments focus on scap and neck position Manual Therapy Treatment Soft Tissue Mobilization Sub-occipital Body Location suboccipital release Mobilization Type Sustained Pressure Intensity/Depth Moderate Body Position Supine cranial fascia Body Location R>L & temporalis Mobilization Type Myofascial Release Intensity/Depth Superficial SCM Body Location SCM R>L Self-Care/Home Management Treatment Education Other Education importance of posture, head positioning for sit up PT-OP-R Modalities Start: 12/30/18 09:09 Freq: Status: Active Protocol: Document 08/18/19 08:59 [facility] (Rec: 08/18/19 09:46 [facility] [id number]) Hot Pack/Cold Pack Treatment Hot Pack Location T/S and C/S Patient Position Supine Treatment Duration (minutes) 10 PT-OP-T Assessment and Plan Start: 12/30/18 09:09 Freq: Status: Active Protocol: Document 08/18/19 08:59 [facility] (Rec: 08/18/19 09:46 [facility] [id number]) Physical Therapy Assessment Goals ROM Custodial Goal (LTG) Pt will have WNL cervical ROM in order to allow him to do typical daily activities like reading, driving, looking up without pain. 02/27/19: Pt near normal into flexion. nearly doubled ROM in all other directions except R rotation. 03/26-All WFL except ext LTG Duration 09/03/19 strenght Short Term Goal (STG) Pt will be indep with HEP STG Duration goal met Sole Edge Inker Machine Goal (LTG) Pt will have 5/5 UE strength & EFT in order to show improved stability 02/27/19: progress in shoulder strength. weakness with pronation. 03/26-significantly improved 2/4-improved to >4+/5 LTG Duration 09/03/19 work Short Term Goal (STG) Pt will have average supervisory air intercept controller strength for his age allowing him to do his job abilities ( 110 B) 02/27/19: R 82 lbs, L 80 lbs STG Duration achieved L, still not R 04/15 Custodial Goal (LTG) Pt will be able to return to work with min restrictions. 02/27/19: not met. Pt has not been cleared to return to work . 03/26-pt to see surgeon in next couple weeks, no clearance 05/12-no clearance 08/05-no clearance LTG Duration 09/03/19 NDI Short Term Goal (STG) Pt will have score of 10/50 in order to show improved functional ability. 02/27/19: not met, NDI score 16 /50 05/12-n/t STG Duration 09/03/19 Custodial Goal (LTG) Pt will have score of no greater than 2/50 in order to show good functional ability 02/27/19: not met, NDI score 16 /50 LTG Duration 09/14/19 Assessment Summary Assessment Pt required cueing for all kettle ohara exercises for neck & scap positioning throughout . He was educated on the importance of carrying over the same form of posture with all exercises he tries at gym. He was fatigued by exercises Physical Therapy Plan Frequency and Duration Frequency of Treatment 1-2x/week Duration of Treatment 2 months Plan of Care Start Date 08/05/19 Plan of Care End Date 10/04/19 Next Visit Focus/Plan Next Note Type Discharge Summary Next Visit Plan work on independence to HEP over next few visits; review home stretches
--- NOTE | 2019-08-20 14:52 | PT.OTN ---
Current Diagnoses Spinal stenosis, cervical region (08/20/19) Abnormal posture (08/20/19) Weakness (08/20/19) Physical Therapy Treatment Note PT-OP-A Visit Information Start: 12/30/18 09:09 Freq: Status: Active Protocol: Document 08/20/19 09:07 [facility] (Rec: 08/20/19 14:52 [facility] [id number]) Out-Patient Physical Therapy Visit Information Visit Information Visit Type Discharge Summary Visit Start Time 09:02 Visit Stop Time 09:55 Total Visit Minutes 53 Visit Number 06/12 Number of DOPE SPRAYER Visits 0 PT-OP-B Current Condition Start: 12/30/18 09:09 Freq: Status: Active Protocol: Document 12/30/18 11:15 [facility] (Rec: 12/30/18 12:09 [facility] [id number]) Current Condition History of Current Condition Onset Date 11/27/18 Current Complaints neck pain post surgery History of Current Condition Pt reports he had a C5-6 ant cervical discectomy w/ arthrodesis w/ant cervical plate on11/27/18 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 Pt has nott been able to work since Jul. Pt is allowed to go on long walks and hikes Treatment Goals Patient/Caregiver Goals Return to work moy, build back up UE strength PT-OP-C Subjective Start: 12/30/18 09:09 Freq: Status: Active Protocol: Document 08/20/19 09:07 [facility] (Rec: 08/20/19 14:52 [facility] [id number]) OP-PT Subjective Patient Comments Patient Comments Pt reports comfortable w/HEP Patient Reported Progress Improving PT-OP-F Manual Assessment Start: 12/30/18 09:09 Freq: Status: Active Protocol: Document 12/30/18 11:15 [facility] (Rec: 12/30/18 14:08 [facility] [id number]) Manual Assessments Soft Tissue Assessment Soft Tissue Mobility Assessment tightness along scar, UT, LS, cervical paraspinals, scalenes & SCM B PT-OP-J Posture/Palpation/Skin Start: 12/30/18 09:09 Freq: Status: Active Protocol: Document 02/27/19 08:15 [facility] (Rec: 02/27/19 08:33 [facility] [id number]) Posture Evaluation [facility] Postural Classification System Elbow Flexion Test 2 PT-OP-K Range of Motion Start: 12/30/18 09:09 Freq: Status: Active Protocol: Document 08/20/19 09:07 [facility] (Rec: 08/20/19 14:52 [facility] [id number]) Cervical Spine Range of Motion Cervical Spine Active Degrees Flexion 60 Extension 40 Rotation Left 71 Rotation Right 51 Lateral Flexion Left 48 Lateral Flexion Right 39 ROM Limitations Soft Tissue Tightness,Pain PT-OP-L Special Tests Start: 12/30/18 09:09 Freq: Status: Active Protocol: Document 12/30/18 11:15 [facility] (Rec: 12/30/18 12:09 [facility] [id number]) Special Tests Cervical Spine Special Tests Shoulder Abduction Test Test Results about 110 B Alar Ligament Test Results neg Neural Special Tests- Upper Body Radial Nerve Tension Test Results neg B Median Nerve Tension Test Results Neg B Ulnar Nerve Tension Test Results neg B PT-OP-M Strength Start: 12/30/18 09:09 Freq: Status: Active Protocol: Document 08/20/19 09:07 [facility] (Rec: 08/20/19 14:52 [facility] [id number]) Shoulder Strength Shoulder Manual Muscle Testing Right Flexion 5 Normal Extension 5 Normal Abduction (C5) 4+ Good+ External Rotation 5 Normal Internal Rotation 5 Normal Comments EFT:5/5 Left Flexion 5 Normal Extension 5 Normal Abduction (C5) 4+ Good+ External Rotation 5 Normal Internal Rotation 5 Normal Elbow/Forearm Strength Elbow and Forearm Manual Muscle Testing Right Flexion (C6) 4+ Good+ Extension (C7) 5 Normal Pronation 5 Normal Supination 5 Normal Left Flexion (C6) 4+ Good+ Extension (C7) 5 Normal Pronation 5 Normal Supination 5 Normal Wrist Strength Wrist Manual Muscle Testing Right Flexion (C7) 5 Normal Extension (C6) 5 Normal Ulnar Deviation 5 Normal Radial Deviation 5 Normal Left Flexion (C7) 5 Normal Extension (C6) 5 Normal Ulnar Deviation 5 Normal Radial Deviation 5 Normal Hand Drywall Carrier/Pinch Strength Hand Strength Right Drywall Carrier (lbs) 110 Left Drywall Carrier (lbs) 105 PT-OP-Q Treatments Start: 12/30/18 09:09 Freq: Status: Active Protocol: Document 08/20/19 09:07 [facility] (Rec: 08/20/19 14:52 [facility] [id number]) Cardio Equipment Upper Body Ergometer (UBE) Duration (Minutes) 5 RPM 60 Height 4.5 Other fwd/back Gym Equipment Cable Column (Body Solid) Lat Pull Down Resistance 3 Reps/Time 12 Therapeutic Exercises Supine Exercises chin tucks and hold Supine Exercise Name axial elongation and hold Reps/Minutes 5 sec x10 Sitting Exercises isometrics Sitting Exercise Name genlte all directions Reps/Minutes 5 sec holds Standing Exercises chin tuck Standing Exercise Name into neutral positioning Manual Therapy Treatment Soft Tissue Mobilization UT, scalenes Body Location R sided Mobilization Type Myofascial Release,Rolling, Strumming Self-Care/Home Management Treatment Education Patient Education Home Exercise Program,Posture PT-OP-R Modalities Start: 12/30/18 09:09 Freq: Status: Active Protocol: Document 08/20/19 09:07 [facility] (Rec: 08/20/19 14:52 [facility] [id number]) Hot Pack/Cold Pack Treatment Hot Pack Location T/S and C/S Patient Position Supine Treatment Duration (minutes) 10 PT-OP-T Assessment and Plan Start: 12/30/18 09:09 Freq: Status: Active Protocol: Document 08/20/19 09:07 [facility] (Rec: 08/20/19 14:52 [facility] [id number]) Physical Therapy Assessment Goals ROM Dry House Wheeler Goal (LTG) Pt will have WNL cervical ROM in order to allow him to do typical daily activities like reading, driving, looking up without pain. 02/27/19: Pt near normal into flexion. nearly doubled ROM in all other directions except R rotation. 03/26-All WFL except ext LTG Duration improved still limited by ext & R Rot strenght Short Term Goal (STG) Pt will be indep with HEP STG Duration goal met Halfway Goal (LTG) Pt will have 5/5 UE strength & EFT in order to show improved stability 02/27/19: progress in shoulder strength. weakness with pronation. 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 02/27/19: not met. Pt has not been cleared to return to work . 03/26-pt to see surgeon in next couple weeks, no clearance 05/12-no clearance 08/05-no clearance LTG Duration unable no clearance per MD NDI Short Term Goal (STG) Pt will have score of 10/50 in order to show improved functional ability. 02/27/19: not met, NDI score 16 /50 05/12-n/t STG Duration 09/03/19 Halfway Goal (LTG) Pt will have score of no greater than 2/50 in order to show good functional ability 02/27/19: not met, NDI score 16 /50 LTG Duration not tested today Assessment Summary Assessment Pt has made some small improvements in goals recently and is indep with HEP . At this time d/c to MD care with possible more PT if any changes. He did well with exercises and discussion of planned HEP Physical Therapy Plan Discharge Physical Therapy Discharge Reasons [place] in Progress Discharge Comments Pt has made some small improvements in goals recently and is indep with HEP . At this time d/c to MD care with possible more PT if any changes.
--- NOTE | 2019-08-20 14:52 | PT.OPDS ---
Current Diagnoses Spinal stenosis, cervical region (08/20/19) Abnormal posture (08/20/19) Weakness (08/20/19) Visit Care Team Role Provider Type VALERY Antoine Primary Care Provider Non-Staff Specialty: Family Practice Address: [address] [place] [address], [address], [place], [address] Email: Ulices Duong MD Attending Provider Non-Staff Specialty: Medical Address: [address] [place] [address], [facility] Email: Visit Number Visit Number 06/12 Discharge Summary PT-OP-B Current Condition Start: 12/30/18 09:09 Freq: Status: Active Protocol: Document 12/30/18 11:15 [facility] (Rec: 12/30/18 12:09 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 Pt has nott been able to work since Jul. Pt is allowed to go on long walks and hikes Treatment Goals Patient/Caregiver Goals Return to work moy, build back up UE strength PT-OP-C Subjective Start: 12/30/18 09:09 Freq: Status: Active Protocol: Document 08/20/19 09:07 [facility] (Rec: 08/20/19 14:52 [facility] [id number]) OP-PT Subjective Patient Comments Patient Comments Pt reports comfortable w/HEP Patient Reported Progress Improving PT-OP-F Manual Assessment Start: 12/30/18 09:09 Freq: Status: Active Protocol: Document 12/30/18 11:15 [facility] (Rec: 12/30/18 14:08 [facility] [id number]) Manual Assessments Soft Tissue Assessment Soft Tissue Mobility Assessment tightness along scar, UT, LS, cervical paraspinals, scalenes & SCM B PT-OP-J Posture/Palpation/Skin Start: 12/30/18 09:09 Freq: Status: Active Protocol: Document 02/27/19 08:15 [facility] (Rec: 02/27/19 08:33 [facility] [id number]) Posture Evaluation [facility] Postural Classification System Elbow Flexion Test 2 PT-OP-K Range of Motion Start: 12/30/18 09:09 Freq: Status: Active Protocol: Document 08/20/19 09:07 [facility] (Rec: 08/20/19 14:52 [facility] [id number]) Cervical Spine Range of Motion Cervical Spine Active Degrees Flexion 60 Extension 40 Rotation Left 71 Rotation Right 51 Lateral Flexion Left 48 Lateral Flexion Right 39 ROM Limitations Soft Tissue Tightness,Pain PT-OP-L Special Tests Start: 12/30/18 09:09 Freq: Status: Active Protocol: Document 12/30/18 11:15 [facility] (Rec: 12/30/18 12:09 [facility] [id number]) Special Tests Cervical Spine Special Tests Shoulder Abduction Test Test Results about 110 B Alar Ligament Test Results neg Neural Special Tests- Upper Body Radial Nerve Tension Test Results neg B Median Nerve Tension Test Results Neg B Ulnar Nerve Tension Test Results neg B PT-OP-M Strength Start: 12/30/18 09:09 Freq: Status: Active Protocol: Document 08/20/19 09:07 [facility] (Rec: 08/20/19 14:52 [facility] [id number]) Shoulder Strength Shoulder Manual Muscle Testing Right Flexion 5 Normal Extension 5 Normal Abduction (C5) 4+ Good+ External Rotation 5 Normal Internal Rotation 5 Normal Comments EFT:5/5 Left Flexion 5 Normal Extension 5 Normal Abduction (C5) 4+ Good+ External Rotation 5 Normal Internal Rotation 5 Normal Elbow/Forearm Strength Elbow and Forearm Manual Muscle Testing Right Flexion (C6) 4+ Good+ Extension (C7) 5 Normal Pronation 5 Normal Supination 5 Normal Left Flexion (C6) 4+ Good+ Extension (C7) 5 Normal Pronation 5 Normal Supination 5 Normal Wrist Strength Wrist Manual Muscle Testing Right Flexion (C7) 5 Normal Extension (C6) 5 Normal Ulnar Deviation 5 Normal Radial Deviation 5 Normal Left Flexion (C7) 5 Normal Extension (C6) 5 Normal Ulnar Deviation 5 Normal Radial Deviation 5 Normal Hand Staff Registered Nurse/Pinch Strength Hand Strength Right Staff Registered Nurse (lbs) 110 Left Staff Registered Nurse (lbs) 105 PT-OP-T Assessment and Plan Start: 12/30/18 09:09 Freq: Status: Active Protocol: Document 08/20/19 09:07 [facility] (Rec: 08/20/19 14:52 [facility] [id number]) Physical Therapy Assessment Goals ROM Detention Goal (LTG) Pt will have WNL cervical ROM in order to allow him to do typical daily activities like reading, driving, looking up without pain. 02/27/19: Pt near normal into flexion. nearly doubled ROM in all other directions except R rotation. 03/26-All WFL except ext LTG Duration improved still limited by ext & R Rot strenght Short Term Goal (STG) Pt will be indep with HEP STG Duration goal met Policy Analyst Goal (LTG) Pt will have 5/5 UE strength & EFT in order to show improved stability 02/27/19: progress in shoulder strength. weakness with pronation. 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 02/27/19: not met. Pt has not been cleared to return to work . 03/26-pt to see surgeon in next couple weeks, no clearance 05/12-no clearance 08/05-no clearance LTG Duration unable no clearance per MD NDI Short Term Goal (STG) Pt will have score of 10/50 in order to show improved functional ability. 02/27/19: not met, NDI score 16 /50 05/12-n/t STG Duration 09/03/19 Detention Goal (LTG) Pt will have score of no greater than 2/50 in order to show good functional ability 02/27/19: not met, NDI score 16 /50 LTG Duration not tested today Assessment Summary Assessment Pt has made some small improvements in goals recently and is indep with HEP . At this time d/c to MD care with possible more PT if any changes. He did well with exercises and discussion of planned HEP Physical Therapy Plan Discharge Physical Therapy Discharge Reasons [place] in Progress Discharge Comments Pt has made some small improvements in goals recently and is indep with HEP . At this time d/c to MD care with possible more PT if any changes.
== END 2019-08-28 13:05 ==
LOC: PHYS 09:00
PROVIDERS: PCP Nurse Practitioner Adult Health; Visit Provider Neurological Surgery
DX: M48.02 Spinal stenosis, cervical region (principal); R29.3 Abnormal posture; R53.1 Weakness
CPT/HCPCS: 97010; 97110; 97112; 97140; 97162; 97535

== ENCOUNTER → 2019-09-25 11:01 | Outpatient (CLI) | payer OTHER, SELFPAY ==
--- NOTE | 2019-09-25 11:03 | DI.NM.S_ITS ---
PROCEDURE: SD BONE SCAN WHOLE BODY RADIOPHARMACEUTICAL: 20.8 mCi Tc-99m MDP IV. INDICATIONS: Prostate cancer. Persistant rib pain. TECHNIQUE: Delayed whole-body scintigrams were obtained approximately 3-4 hours after intravenous injection of radiotracer. Anterior and posterior views were acquired from vertex to feet. Additional left and right oblique views of the thoracic cage were obtained. COMPARISON: CR, L-SPINE 2-3 VIEWS, 09/04/2008, 11:10. [facility], , MR LUMBAR SPINE WO CON, 10/10/2018, 18:51. [facility], SD, BONE SCAN WHOLE BODY, 08/27/2013, 12:42. RG, CT ABDOMEN/PELVIS, 10/25/2005, 16:13. FINDINGS: Focal mildly increased uptake is noted in right side of L4. No lesions are identified in skull, sternum, clavicles, scapulae, ribs, bony pelvis, and visualized shafts of the long bones. There is low level increased uptake in cervical, thoracic and lumbar spine with distribution indistinguishable from degenerative disc and facet disease; early metastasis to spine could be obscured by degenerative changes. IMPRESSION: 1. Focal mildly increased uptake is noted in right side of L4. Recommend radiographic correlation. 2. A cause for rib pain is not identified on bone scan. Dictated by: Jesusita Atkinson M.D. on 09/25/2019 at 15:55 Approved by: Jesusita Atkinson M.D. on 09/25/2019 at 17:42
== END ==
PROVIDERS: PCP Family Medicine; Referring Provider Family Medicine; Visit Provider Family Medicine
DX: R07.81 Pleurodynia (principal); C61 Malignant neoplasm of prostate
CPT/HCPCS: 78306; A9503

== ENCOUNTER → 2019-10-08 10:47 | Outpatient (CLI) | payer OTHER, SELFPAY ==
--- NOTE | 2019-10-08 10:56 | DI.RAD.S_ITS ---
PROCEDURE: XR CHEST 2V INDICATIONS: Chest pain TECHNIQUE: 2 views of the chest were acquired. COMPARISON: None. FINDINGS: Surgical changes and devices: None. Lungs and pleura: Lungs are clear. No pleural effusions or pneumothorax. Mediastinum: Mediastinal contours are normal. Heart size is normal. Bones and chest wall: No suspicious bony abnormalities. Soft tissues appear unremarkable. IMPRESSION: No evidence acute pulmonary process. Dictated by: Rc Saha M.D. on 10/08/2019 at 11:31 Approved by: Rc Saha M.D. on 10/08/2019 at 11:32
== END ==
PROVIDERS: PCP Family Medicine; Referring Provider Family Medicine; Visit Provider Family Medicine
DX: R07.9 Chest pain, unspecified (principal)
CPT/HCPCS: 71046

== ENCOUNTER → 2020-01-16 12:15 | Outpatient (CLI) | payer OTHER, SELFPAY ==
[2020-01-16 14:50] LABS: Prostate Specific Antigen < 0.064 ng/mL (0.10-4.00)
== END ==
PROVIDERS: PCP Family Medicine; Referring Provider Urology; Visit Provider Physician Assistant
DX: Z85.46 Personal history of malignant neoplasm of prostate (principal)
CPT/HCPCS: 36415; 84153

== ENCOUNTER → 2020-02-03 14:42 | Outpatient (CLI) | payer OTHER, SELFPAY ==
[2020-02-03 16:42] LABS: BUN Creatinine Ratio 13.8 (6-22); Blood Urea Nitrogen 19 mg/dL (9-20); Calcium 10.1 mg/dL (8.4-10.2); Carbon Dioxide 28 mmol/L (22-32); Chloride 105 mmol/L (98-107); Estimated Glomerular Filt Rate 53.7 mL/min (>60); Glucose 79 mg/dL (70-100); HEMOLYSIS < 15 (0-50); Potassium 5.1 mmol/L (3.4-5.1); Sodium 140 mmol/L (137-145)
== END ==
PROVIDERS: PCP Family Medicine; Referring Provider Family Medicine; Visit Provider Family Medicine
DX: I10 Essential (primary) hypertension (principal)
CPT/HCPCS: 36415; 80048

== ENCOUNTER → 2020-07-06 07:18 | Outpatient (CLI) | payer OTHER, SELFPAY ==
[2020-07-06 08:48] LABS: Add Manual Diff / Slide Review NO; Basophils Absolute Auto 0 /uL (0-100); Basophils Percent Auto 0.6 % (0-2); Eosinophils Absolute Auto 200 /uL (0-450); Hematocrit 41.6 % (41-53); Hemoglobin 14.2 g/dL (13.5-17.5); Lymphocytes Absolute Auto 1600 /uL (1100-4500); Lymphocytes Percent Auto 20.4 % (25-40); Mean Corpuscular HGB Conc 34.1 % (30-36); Mean Corpuscular Volume 96.5 fL (80-100); Monocytes Absolute Auto 700 /uL (0-900); Monocytes Percent Auto 9.3 % (3-14); Neutrophils Absolute Auto 5200 /uL (1500-7000); Neutrophils Percent Auto 66.7 % (50-75); Platelet Count 185 X10^3/uL (150-400); Red Cell Distribution Width 13.5 % (11.6-14.8); White Blood Cell Count 7.8 X10^3/uL (4.5-11.0)
[2020-07-06 09:31] LABS: Alanine Aminotransferase 51 IU/L (<50); Albumin 3.9 g/dL (3.5-5.0); Albumin Globulin Ratio 1.4 (1.0-2.8); Alkaline Phosphatase 65 U/L (38-126); Aspartate Aminotransferase 29 IU/L (17-59); BUN Creatinine Ratio 16.5 (6-22); Bilirubin Total 0.4 mg/dL (0.2-1.3); Blood Urea Nitrogen 20 mg/dL (9-20); Calcium 9.2 mg/dL (8.4-10.2); Carbon Dioxide 32 mmol/L (22-32); Chloride 104 mmol/L (98-107); Cholesterol 185 mg/dL (140-199); Estimated Glomerular Filt Rate > 60.0 mL/min (>60); Globulin 2.7 g/dL (1.7-4.1); Glucose 96 mg/dL (70-100); HDL Cholesterol 72 mg/dL (40-60); HEMOLYSIS < 15 (0-50); LDL Cholesterol Calculated 89 mg/dL (<100); Potassium 4.1 mmol/L (3.4-5.1); Sodium 137 mmol/L (137-145); Total Protein 6.6 g/dL (6.3-8.2); Triglycerides 120 mg/dL (35-150)
== END ==
PROVIDERS: PCP Family Medicine; Referring Provider Family Medicine; Visit Provider Family Medicine
DX: I10 Essential (primary) hypertension (principal); R53.83 Other fatigue; Z85.46 Personal history of malignant neoplasm of prostate
CPT/HCPCS: 36415; 80053; 80061; 85025

== ENCOUNTER → 2020-08-23 10:09 | Outpatient (CLI) | payer OTHER, SELFPAY ==
[2020-08-23 12:02] LABS: COVID19 -Nasal RAPID Negative (Negative)
== END ==
PROVIDERS: PCP Family Medicine; Visit Provider Specialist
DX: Z20.822 Contact with and (suspected) exposure to COVID-19 (principal)
CPT/HCPCS: 87635; C9803

== ENCOUNTER 2020-08-24 08:14 | Day surgery (SDC) | payer OTHER, SELFPAY ==
--- NOTE | 2020-08-24 | PATH_ITS ---
[facility] Accession Number: [id number] . 01 Material submitted: . colon - 15 CM COLON POLYP . 01 Clinical history: . SDC . 02 Diagnosis: Colon, 15 cm Polyp, Biopsy: Hyperplastic polyp. MRV 08/26/2020 1017 Local . 02 Electronically signed: . Vickie Velasco MD, Pathologist NPI- [id number] . 01 Gross description: . The specimen is received in formalin, labeled 15 cm and consists of a 0.4 x 0.3 x 0.3 cm robbins fragment of soft tissue which is entirely submitted in cassette A1. ([id number]) /MRV 08/25/2020 0949 Local . 02 Pathologist provided ICD-10: K63.5 . 02 CPT . 729781 Performed at: 01 [facility] [address] [id number] MD Ulices Arana MD Phone: [phone] Performed at: 02 [facility] [address] [place], [place] [id number] MD Vickie Velasco MD Phone: [phone]
[2020-08-24 08:25] VITALS: BP 114/73; PULSE 73; RESP 15; TEMP 36.6; O2SAT 95; BMI 26.9
[2020-08-24] MEDS: LACTATED RINGERS 1,000 ML 200 ML IV (08:47)
--- NOTE | 2020-08-24 09:15 | PM.HP.1 ---
History of Present Illness History of Present Illness Date Patient Seen: 08/24/20 Time Patient Seen: 09:15 Chief complaint: [facility] [place] Narrative: Patient is a gentleman here for screening colonoscopy. Last exam appears to been about 5 years ago. No family history of colon cancer. He has a personal history of polyps. He has had multiple colonoscopies. Patient History Medical History (Updated 07/06/20 @ 18:37 by Darnell Quintanilla DO) Colon polyps (~2009) Elevated PSA (~2012) Meralgia paresthetica Prostate cancer (~2013) Seasonal allergies Well adult exam Surgical History (Updated 08/24/20 @ 09:17 by Yifan Madison MD) Anesthesia History of appendectomy History of neck surgery History of Jaye fundoplication History of vasectomy Status post radical cystoprostatectomy (10/13/13) Family & Social History Social History: household members spouse Tobacco & Substance use: Tobacco type cigars Smoking Status Current some day smoker alcohol intake current alcohol intake frequency 0-2 drinks per day Substance Use Type does not use Meds Home Medications and Allergies Home Medications Medication Instructions Recorded Confirmed Type lisinopril 10 mg tablet 10 mg PO DAILY #90 tab 04/08/20 08/24/20 Rx temazepam 30 mg capsule See Rx Instructions .ROUTE 08/10/20 08/24/20 Rx .COMPLEX #30 cap Allergies Allergy/AdvReac Type Severity Reaction Status Date / Time Penicillins [PENICILLINS] Allergy Mild Verified 08/24/20 08:20 hydrocodone AdvReac Intermediate vomiting Verified 08/24/20 08:20 Review of Systems Review of Systems Narrative: Has headaches and neck pain related to his spine issues ROS: Yes All systems reviewed with the patient and are negative except as otherwise documented Exam Vital Signs (past 8 hours): - 08/24/20 08:25 Temperature 97.8 F Pulse Rate 73 Respiratory Rate 15 Blood Pressure 114/73 Pulse Oximetry 95 Oxygen Delivery Method Room Air Narrative Exam Narrative: Pleasant cooperative patient no apparent distress. Lungs are clear to auscultation. No rales or rhonchi. Heart regular rate and rhythm no murmur gallop. Abdomen is soft nontender without mass. No obvious hernias. Patient is alert and oriented x3. Assessment & Plan Assessment & Plan narrative: The patient for a screening colonoscopy. I have discussed the procedure with them. Risks of bleeding, perforation which would necessitate major operation, failure to find remove all lesions, the potential tattoo were all discussed. All questions were answered. They wished to proceed.
--- NOTE | 2020-08-24 09:19 | PM.PREOP ---
Pre-operative Note COVID-19 COVID-19 status: Negative Result date/Date tested (Pos, Neg/Pending): 08/23/20 Interval Note History & Physical reviewed/Exam performed by Physician: Yes Changes to H&P: No ASA Class (for procedural sedation): II
[2020-08-24] MEDS: ONDANSETRON 4 MG/2 ML INJ IV (09:23)
[2020-08-24] MEDS: fentaNYL 250 MCG/5 ML INJ IV (09:37)
[2020-08-24] MEDS: MIDAZOLAM 5 MG/5 ML VIAL IV (09:37)
--- NOTE | 2020-08-24 09:49 | P.OP.ENDO_ITS ---
Operative Date/Time/Diagnoses Date of procedure: 08/24/20 Time of procedure: 09:49 Pre-op diagnosis: Screening exam. Personal history of polyps. Last colonoscopy the appears to have been about 5 years ago. Post-op diagnosis: same Procedure & Clinicians Study performed: Colonoscopy with cold biopsy Same procedure as scheduled: Yes Indications: Screening in high risk patient Surgeon: Yifan Madison Procedure Notes SCOAP/Timeout: Performed Procedure in detail: The patient was placed in the left lateral decubitus position and underwent IV sedation directed by the surgeon consisting of fentanyl and Versed. Digital exam was remarkable for a (surgically) absent prostate. The scope was inserted and advanced through the rectum into the sigmoid, descending, transverse, and ascending colon. Patient was noted to have diverticulosis scattered through the colon with heaviest concentration of the sigmoid colon.. The cecum was reached identified by the ileocecal valve and the appendiceal opening. The ileocecal valve was briefly cannulated. The terminal ileum was normal in appearance. The scope was gradually brought out. One Polyp was found at 15 cm from the anal verge. It was biopsied and completely removed. . The scope ultimately was retroflexed in the rectum. The appearance was remarkable for some hemorrhoidal disease without any ulcers. The scope was removed and the patient tolerated the procedure well. Very good prep. Scope withdrawal time: 7 minutes(8 total) Sedation minutes: 25 Findings: diverticulosis (Scattered Throughout the colon) and polyp (One small polyp) Specimen(s): other (Polyp) Complications: none Post-procedure Recommendations: Colonscopy in 5 years Follow up: as needed Disposition: PACU
[2020-08-24 09:53] VITALS: BP 119/72; PULSE 88; RESP 12; TEMP 36.4; O2SAT 96
[2020-08-24 09:58] VITALS: BP 116/75; PULSE 83; RESP 12; O2SAT 95
[2020-08-24 10:04] VITALS: BP 112/83; PULSE 76; RESP 12; TEMP 36.1; O2SAT 96
[2020-08-24 10:27] VITALS: BP 111/76; PULSE 68; RESP 15; O2SAT 92
[2020-08-24 10:33] VITALS: BP 111/76; PULSE 68
[2020-08-24] MEDS: PROCHLORPERAZINE 5 MG TABLET 10 MG PO (10:33)
--- NOTE | 2020-08-24 10:35 | SUR.PHASEII ---
just after IV removed and pt started getting dressed he became nauseated. Pt had zofran during procedure but he said this was really bad nausea. Dr Madison was notified and new orders received for compazine 10mg po.
== END 2020-08-24 10:48 | disposition home or self-care (01) ==
PROVIDERS: PCP Family Medicine; Referring Provider Specialist; Visit Provider Specialist
PROC: 0DJD8ZZ Inspection of Lower Intestinal Tract, Via Natural or Artificial Opening Endoscopic (ICD-10-PCS; CPT 45378; principal; 2020-08-24 09:15)
DX: Z12.11 Encounter for screening for malignant neoplasm of colon (principal); Z86.010 Personal history of colon polyps; K57.30 Diverticulosis of large intestine without perforation or abscess without bleeding; K63.5 Polyp of colon
CPT/HCPCS: 45380; 99152; J2250; J2405; J3010

== ENCOUNTER → 2020-10-11 08:03 | Outpatient (CLI) | payer OTHER, SELFPAY ==
--- NOTE | 2020-10-11 08:05 | DI.US.S_ITS ---
PROCEDURE: US ABDOMEN COMPLETE INDICATIONS: epigastric discomfort and left chest pain TECHNIQUE: Real-time scanning was performed of the abdominal and retroperitoneal organs, with image documentation. COMPARISON: [facility], US, ABDOMEN COMPLETE, 09/09/2010, 8:35. [facility], US, ABDOMEN COMPLETE, 03/02/2010, 12:59. FINDINGS: Liver: Liver is normal in size and homogeneous in echotexture diffusely mildly hyperechoic potentially a manifestation of mild fatty infiltration. Gallbladder: The gallbladder appears normal. Biliary ducts: Intrahepatic bile ducts are non-dilated. Extrahepatic bile duct caliber measures 3.2 mm. Normal is 6-7 mm or less in diameter, or 10 mm or less post-cholecystectomy. Pancreas: Visualized portions of the pancreas are sonographically normal. Spleen: Spleen is normal in size and homogeneous in echotexture. Kidneys: Kidneys are normal in size and echotexture. Right kidney measures 11.1 cm long; left kidney measures 10.5 cm long. No hydronephrosis or nephrolithiasis. No solid masses. Aorta: Visualized aorta is normal in caliber at less than 3 cm. Iliacs: Proximal common iliac arteries are normal in caliber at less than 2.5 cm. IVC: Intrahepatic inferior vena cava is patent. Miscellaneous: No free abdominal fluid. IMPRESSION: Slight fatty infiltration within the liver. No definite acute disease. Depending on the clinical status follow-up by CT scanning may become necessary. Dictated by: Gurpreet Villa M.D. on 10/11/2020 at 9:25 Approved by: Gurpreet Villa M.D. on 10/11/2020 at 9:27
--- NOTE | 2020-10-11 08:05 | DI.RAD.S_ITS ---
PROCEDURE: XR CHEST 2V INDICATIONS: epigastric discomfort and left chest pain TECHNIQUE: 2 views of the chest were acquired. COMPARISON: [facility], CR, XR CHEST 2V, 10/08/2019, 10:49. FINDINGS: Surgical changes and devices: None. Lungs and pleura: Lungs are clear. No pleural effusions or pneumothorax. Mediastinum: Mediastinal contours are normal. Heart size is normal. Bones and chest wall: No suspicious bony abnormalities. Bilateral acromioplasty procedures. Soft tissues appear unremarkable. IMPRESSION: Normal for age, source of current pain symptoms is not seen. Dictated by: Gurpreet Villa M.D. on 10/11/2020 at 8:48 Approved by: Gurpreet Villa M.D. on 10/11/2020 at 8:49
== END ==
PROVIDERS: PCP Family Medicine; Referring Provider Nurse Practitioner; Visit Provider Nurse Practitioner
DX: R07.89 Other chest pain (principal); R10.13 Epigastric pain; K76.0 Fatty (change of) liver, not elsewhere classified
CPT/HCPCS: 71046; 76700

== ENCOUNTER → 2020-11-08 09:34 | Outpatient (CLI) | payer OTHER, SELFPAY ==
--- NOTE | 2020-11-08 09:35 | DI.RAD.S_ITS ---
PROCEDURE: XR KNEE LT 3V INDICATIONS: left knee pain TECHNIQUE: 3 views of the knee were acquired. COMPARISON: None. FINDINGS: Bones: No acute fracture. There is minimal narrowing of the medial joint space. Scattered degenerative subchondral sclerosis and spurring. Soft tissues: No joint effusion. No suspicious soft tissue calcifications. IMPRESSION: Mild degenerative changes. If the patient's pain or other symptoms persist, consider further evaluation with MRI Dictated by: Varun Ramos M.D. on 11/08/2020 at 10:39 Approved by: Varun Ramos M.D. on 11/08/2020 at 10:40
--- NOTE | 2020-11-08 09:35 | DI.RAD.S_ITS ---
PROCEDURE: XR HIP W PEL IF DONE RT 2V INDICATIONS: right hip pain TECHNIQUE: AP pelvis with lateral view(s) of the right hip(s). COMPARISON: [facility], , [id number] W PEL IF PERFORMED, 05/21/2017, 11:29. FINDINGS: Bones: No acute fracture. Scattered degenerative subchondral sclerosis and spurring. Mild bilateral hip osteoarthritis. There is anatomic alignment. Soft tissues: Surgical clips project in the pelvis. IMPRESSION: Mild bilateral hip osteoarthritis, grossly unchanged since 05/21/17. Dictated by: Varun Ramos M.D. on 11/08/2020 at 10:22 Approved by: Varun Ramos M.D. on 11/08/2020 at 10:39
== END ==
PROVIDERS: Family Provider Nurse Practitioner; PCP Family Medicine; Referring Provider Registered Nurse; Visit Provider Registered Nurse
DX: M25.562 Pain in left knee (principal); M25.551 Pain in right hip; M16.0 Bilateral primary osteoarthritis of hip
CPT/HCPCS: 73502; 73562

== ENCOUNTER → 2020-12-10 08:22 | Outpatient (CLI) | payer OTHER, SELFPAY ==
[2020-12-10 09:18] LABS: Alanine Aminotransferase 38 IU/L (<50); Albumin 4.1 g/dL (3.5-5.0); Albumin Globulin Ratio 1.4 (1.0-2.8); Alkaline Phosphatase 64 U/L (38-126); Aspartate Aminotransferase 32 IU/L (17-59); BUN Creatinine Ratio 14.8 (6-22); Bilirubin Total 0.5 mg/dL (0.2-1.3); Blood Urea Nitrogen 18 mg/dL (9-20); Calcium 9.4 mg/dL (8.4-10.2); Carbon Dioxide 30 mmol/L (22-32); Chloride 105 mmol/L (98-107); Estimated Glomerular Filt Rate > 60.0 mL/min (>60); Glucose 113 mg/dL (70-100); HEMOLYSIS < 15 (0-50); Potassium 3.9 mmol/L (3.4-5.1); Sodium 141 mmol/L (137-145); Total Protein 7.1 g/dL (6.3-8.2)
== END ==
PROVIDERS: Family Provider Nurse Practitioner; PCP Family Medicine; Referring Provider Family Medicine; Visit Provider Family Medicine
DX: R74.01 Elevation of levels of liver transaminase levels (principal)
CPT/HCPCS: 36415; 80053

== ENCOUNTER 2021-01-12 13:45 | Outpatient (RCR) | payer OTHER, SELFPAY ==
--- NOTE | 2020-11-03 13:14 | PT.OPPOC ---
Physical, Occupational & Speech Therapy At [facility] Current Diagnoses Lateral epicondylitis, left elbow (11/03/20) Pain in arm, unspecified (11/03/20) Visit Care Team Role Provider Type Darnell Quintanilla DO Primary Care Provider Physician Specialty: [facility] Address: [address] [place] [address], [address] Email: [email or web address] VALERY Alcantara Attending Provider Advanced Circular Saw Filer Family Provider Referring Provider Specialty: [facility] Address: [address] [place] [address], [address] Email: [email or web address] Plan Of Care PT-OP-T Assessment and Plan Start: 11/03/20 11:20 Freq: Status: Active Protocol: Document 11/03/20 12:45 [facility] (Rec: 11/10/20 10:19 [facility] [email or web address]) Physical Therapy Assessment Goals quick dash score of 19 Impairment quickdash score of 19 Senior Living Goal (LTG) Quick dash score is improved by 6 or more points LTG Duration 8 weeks scalene and pectoralis tightness Impairment scalene and pectoralis tightness Short Term Goal (STG) Bharathi is educated on anterior chest flexibility exercises with the foam roll and stretches for the scalenes /upper trapezius STG Duration 4 weeks Tightness of the common extensor tendon Impairment L forearm tightness, pain with full wrist flexion/ pronation Short Term Goal (STG) Bharathi is able to tolerate stretching for the forearm into elbow extension, flexion, and pronation with overpressure STG Duration 4 weeks pain rated 3/10 at the common extensor tendon attachment on the left Impairment left elbow pain rated 3/10 that limits gripping and is limiting exercise Home Health Scheduler Goal (LTG) Reduce left sided elbow pain and Bharathi is able to return to the resistance rope at the gym without pain LTG Duration 8 weeks Assessment Summary Assessment Bharathi is a 55 year old male referred to PT at this time for complaints of left sided tennis elbow. He has been seen previously in our clinic s/p his cervical fusion and c/ o left sided thumb pain. Bharathi notes he was doing good with his neck and had been working out in the gym. He was using the conditioning rope at the gym and kettlebells but began to experience left sided elbow pain. 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 He denies any neck pain. Physical Therapy Plan Frequency and Duration Frequency of Treatment 2x/Week Duration of Treatment 8 Plan of Care Start Date 11/03/20 Plan of Care End Date 12/29/20 Therapeutic Interventions Therapeutic Interventions Home Exercise Program,Joint Mobilizations,Manual Therapy, Patient/Caregiver Education, Self-Care/Home Management,Soft Tissue Mobilization,Taping, Therapeutic Activities, Therapeutic Exercises Modalities Cold Pack/Ice Massage,Electric Stimulation,Hot Packs, Infrared Therapy,Iontophoresis ,Ultrasound Next Visit Focus/Plan Next Note Type Treatment Note Next Visit Plan review stretches for the pectoralis, wrist extensors, and lateral neck, work with manual techniques to reduce tension in the forearm, ice massage, postural education, radial and median nerve glides , foam roll stretch. Plan of Care Dates Plan of Care Start Date 11/03/20 Plan of Care End Date 12/29/20 Electronically Signed by: Mildred Purcell, PT 11/10/20 1378 Please Sign and Return: I have reviewed this Plan of Care and certify that the skilled therapy services above are required to meet the patient?s needs. Physician Signature Date Printed Name and Credentials Clinical Instructor Signature Printed Name and Credentials
--- NOTE | 2020-11-03 13:14 | PT.OIE ---
Current Diagnoses Lateral epicondylitis, left elbow (11/03/20) Pain in arm, unspecified (11/03/20) Past Medical History (Last Reviewed 11/08/20 @ 12:52 by VALERY Yu) Colon polyps (~2009) Elevated PSA (~2012) History of malignant neoplasm of prostate (12/26/16) Left knee pain Meralgia paresthetica Prostate cancer (~2013) Right hip pain Seasonal allergies Well adult exam Past Surgical History (Last Reviewed 11/08/20 @ 12:52 by VALERY Yu) Anesthesia History of appendectomy History of neck surgery History of Jaye fundoplication History of vasectomy Status post prostatectomy Visit Care Team Role Provider Type Darnell Quintanilla DO Primary Care Provider Physician Specialty: [facility] Address: [address] [place] [address], [facility] Email: [email or web address] VALERY Alcantara Attending Provider Advanced Geology Professor Family Provider Referring Provider Specialty: [facility] Address: [address] [place] [address], [address] Email: [email or web address] Physical Therapy Initial Evaluation PT-OP-A Visit Information Start: 11/03/20 11:20 Freq: Status: Active Protocol: Document 11/03/20 12:45 [facility] (Rec: 11/03/20 14:02 [facility] [id number]) Out-Patient Physical Therapy Visit Information Visit Information Visit Type Initial Evaluation Visit Start Time 12:45 Visit Stop Time 13:30 Total Visit Minutes 45 Visit Number 1 Evaluation Information Evaluation Date 11/03/20 PT-OP-B Current Condition Start: 11/03/20 11:20 Freq: Status: Active Protocol: Document 11/03/20 12:45 [facility] (Rec: 11/03/20 14:02 [facility] [id number]) Current Condition History of Current Condition Onset Date August 2020 Current Complaints left sided elbow pain and loss of strength History of Current Condition a couple of months ago started having tennis elbow symptoms, he stopped doing the exercises at the gym but his symptoms have hung on. History of cervical fusion he has strouble gripping things and has to use his scapula muscles to help him lift. Always tender to the touch. He was really liking the gym but feels like now he has to stop. 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 Prior Functional Status Baseline Function- ADL's Independent Baseline Function- Mobility Independent Current Functional Impairments (Reported) Functional Limitations- ADL's Bharathi is limited with activities that require gripping, he has moderate difficulty carrying a shopping bag PT-OP-C Subjective Start: 11/03/20 11:20 Freq: Status: Active Protocol: Document 11/03/20 12:45 [facility] (Rec: 11/10/20 10:19 [facility] [email or web address]) Patient Questionnaires Quick Dash- Upper Extremity Quick Dash UE Score 19 Quick Dash UE Impairment 1 to 19% Impaired (Score 1-19) OP-PT Pain Assessment Location left sided elbow pain Pain Location Details pain on the lateral epicondyle Intensity 3 Scale Used Numeric (0 - 10) Description Aching,Sharp,Throbbing,With Movement Frequency Intermittent Other Pain Aggravating Factors gripping and carrying items PT-OP-F Manual Assessment Start: 11/03/20 11:20 Freq: Status: Active Protocol: Document 11/03/20 12:45 [facility] (Rec: 11/10/20 10:19 [facility] [email or web address]) Manual Assessments Soft Tissue Assessment Soft Tissue Mobility Assessment tightness over the common extensor tendon attachments to the lateral epicondyle tightness along scar, UT, LS, cervical paraspinals, scalenes & SCM B pectoralis minor tightness L > R Other Manual Assessments Other Manual Assessments + ULTT for median and radial nerves on the left side PT-OP-J Posture/Palpation/Skin Start: 11/03/20 11:20 Freq: Status: Active Protocol: Document 11/03/20 12:45 [facility] (Rec: 11/10/20 10:19 [facility] [email or web address]) Posture Evaluation Comments Posture Comments Mild fwd head, elevated L shoulder and scapula. Palpation Assessment Location left lateral epicondyle Palpation Location left lateral epicondyle Palpation Findings Spasm,Tenderness Palpation Details tenderness to palpation over the common extensor tendon PT-OP-K Range of Motion Start: 11/03/20 11:20 Freq: Status: Active Protocol: Document 11/03/20 12:45 [facility] (Rec: 11/10/20 10:19 [facility] [email or web address]) Cervical Spine Range of Motion Cervical Spine Active Degrees Testing Position Sitting Flexion 60 Extension 40 Rotation Left 70 Rotation Right 50 Lateral Flexion Left 50 Lateral Flexion Right 40 ROM Limitations Soft Tissue Tightness Comments hx of spinal surgery PT-OP-L Special Tests Start: 11/03/20 11:20 Freq: Status: Active Protocol: Document 11/03/20 12:45 [facility] (Rec: 11/10/20 10:19 [facility] [email or web address]) Special Tests Neural Special Tests- Upper Body Radial Nerve Tension Test Results + Left Median Nerve Tension Test Results +Left PT-OP-M Strength Start: 11/03/20 11:20 Freq: Status: Active Protocol: Document 11/03/20 12:45 [facility] (Rec: 11/10/20 10:19 [facility] [email or web address]) Wrist Strength Wrist Manual Muscle Testing Left Flexion (C7) 5 Normal Extension (C6) 4 Good Ulnar Deviation 5 Normal Radial Deviation 4+ Good+ PT-OP-Q Treatments Start: 11/03/20 11:20 Freq: Status: Active Protocol: Document 11/03/20 12:45 [facility] (Rec: 11/10/20 10:19 [facility] [email or web address]) Therapeutic Exercises Standing Exercises pec stretch Standing Exercise Name supine over foam roll Side bilateral Reps/Minutes 30 sec Other Exercises cervical scalene stretch Reps/Minutes 2 reps each side hold 30 seconds forearm extensor stretch Reps/Minutes 2 reps hold 30 seconds each Comments wrist flexion with pronation Manual Therapy Treatment Soft Tissue Mobilization L forearm Body Location Left common extensor tendon, TFM at the attachement to the epicondlye Pectorals Body Location major & minor PT-OP-R Modalities Start: 11/10/20 13:13 Freq: Status: Active Protocol: Document 11/10/20 12:45 [facility] (Rec: 11/10/20 13:14 [facility] [email or web address]) Hot Pack/Cold Pack Treatment Ice Massage Location left common extensor tendon Patient Position Hooklying Treatment Duration (minutes) 5 Patient Tolerance Good PT-OP-T Assessment and Plan Start: 11/03/20 11:20 Freq: Status: Active Protocol: Document 11/03/20 12:45 [facility] (Rec: 11/10/20 10:19 [facility] [email or web address]) Physical Therapy Assessment Goals quick dash score of 19 Impairment quickdash score of 19 Retirement Goal (LTG) Quick dash score is improved by 6 or more points LTG Duration 8 weeks scalene and pectoralis tightness Impairment scalene and pectoralis tightness Short Term Goal (STG) Bharathi is educated on anterior chest flexibility exericses with the foam roll and stretches for the scalenes /upper trapezius STG Duration 4 weeks Tightness of the common extensor tendon Impairment L forearm tightness, pain with full wrist flexion/ pronation Short Term Goal (STG) Bharathi is able to tolerate stretching for the forearm into elbow extension, flexion, and pronation with overpressure STG Duration 4 weeks pain rated 3/10 at the common extensor tendon attachment on the left Impairment left elbow pain rated 3/10 that limits gripping and is limiting exercise Retirement Goal (LTG) Reduce left sided elbow pain and Bharathi is able to return to the resistance rope at the gym without pain LTG Duration 8 weeks Assessment Summary Assessment Bharathi is a 55 year old male referred to PT at this time for complaints of left sided tennis elbow. He has been seen previously in our clinic s/p his cervical fusion and c/ o left sided thumb pain. Bharathi notes he was doing good with his neck and had been working out in the gym. He was using the conditioning rope at the gym and kettlebells but began to experience left sided elbow pain. 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 He denies any neck pain. Physical Therapy Plan Frequency and Duration Frequency of Treatment 2x/Week Duration of Treatment 8 Plan of Care Start Date 11/03/20 Plan of Care End Date 12/29/20 Therapeutic Interventions Therapeutic Interventions Home Exercise Program,Joint Mobilizations,Manual Therapy, Patient/Caregiver Education, Self-Care/Home Management,Soft Tissue Mobilization,Taping, Therapeutic Activities, Therapeutic Exercises Modalities Cold Pack/Ice Massage,Electric Stimulation,Hot Packs, Infrared Therapy,Iontophoresis ,Ultrasound Next Visit Focus/Plan Next Note Type Treatment Note Next Visit Plan review stretches for the pectoralis, wrist extensors, and lateral neck, work with manual techniques to reduce tension in the forearm, ice massage, postural education, radial and median nerve glides , foam roll strech.
--- NOTE | 2020-11-23 12:59 | PT.OTN ---
Current Diagnoses Lateral epicondylitis, left elbow (11/23/20) Pain in arm, unspecified (11/23/20) Physical Therapy Treatment Note PT-OP-A Visit Information Start: 11/03/20 11:20 Freq: Status: Active Protocol: Document 11/23/20 09:48 [facility] (Rec: 11/23/20 12:15 [facility] [id number]) Out-Patient Physical Therapy Visit Information Visit Information Visit Type Treatment Note Visit Start Time 09:48 Visit Stop Time 10:33 Total Visit Minutes 45 Visit Number 2 Number of TIRE MECHANIC Visits 0 PT-OP-B Current Condition Start: 11/03/20 11:20 Freq: Status: Active Protocol: Document 11/03/20 12:45 [facility] (Rec: 11/03/20 14:02 [facility] [id number]) Current Condition History of Current Condition Onset Date August 2020 Current Complaints left sided elbow pain and loss of strength History of Current Condition a couple of months ago started having tennis elbow symptoms, he stopped doing the exercises at the gym but his symptoms have hung on. History of cervical fusion he has strouble gripping things and has to use his scapula muscles to help him lift. Always tender to the touch. He was really liking the gym but feels like now he has to stop. Treatment Goals Patient/Caregiver Goals Bharathi would like to be able to return to his gym activities without pain, he would like to be able to header up withou pain. Prior Functional Status Baseline Function- ADL's Independent Baseline Function- Mobility Independent Current Functional Impairments (Reported) Functional Limitations- ADL's Bharathi is limited with activities that require gripping, he has moderate difficulty carrying a shopping bag PT-OP-C Subjective Start: 11/03/20 11:20 Freq: Status: Active Protocol: Document 11/23/20 09:48 [facility] (Rec: 11/23/20 12:15 [facility] [id number]) OP-PT Subjective Patient Comments Patient Comments Pt reports he did a lot fo the stretch of extensors while away. PT-OP-F Manual Assessment Start: 11/03/20 11:20 Freq: Status: Active Protocol: Document 11/03/20 12:45 [facility] (Rec: 11/10/20 10:19 [facility] [email or web address]) Manual Assessments Soft Tissue Assessment Soft Tissue Mobility Assessment tightness over the common extensor tendon attachments to the lateral epicondyle tightness along scar, UT, LS, cervical paraspinals, scalenes & SCM B pectoralis minor tightness L > R Other Manual Assessments Other Manual Assessments + ULTT for median and radial nerves on the left side PT-OP-J Posture/Palpation/Skin Start: 11/03/20 11:20 Freq: Status: Active Protocol: Document 11/03/20 12:45 [facility] (Rec: 11/10/20 10:19 [facility] [email or web address]) Posture Evaluation Comments Posture Comments Mild fwd head, elevated L shoulder and scapula. Palpation Assessment Location left lateral epicondyle Palpation Location left lateral epicondyle Palpation Findings Spasm,Tenderness Palpation Details tenderness to palpation over the common extensor tendon PT-OP-K Range of Motion Start: 11/03/20 11:20 Freq: Status: Active Protocol: Document 11/03/20 12:45 [facility] (Rec: 11/10/20 10:19 [facility] [email or web address]) Cervical Spine Range of Motion Cervical Spine Active Degrees Testing Position Sitting Flexion 60 Extension 40 Rotation Left 70 Rotation Right 50 Lateral Flexion Left 50 Lateral Flexion Right 40 ROM Limitations Soft Tissue Tightness Comments hx of spinal surgery PT-OP-L Special Tests Start: 11/03/20 11:20 Freq: Status: Active Protocol: Document 11/03/20 12:45 [facility] (Rec: 11/10/20 10:19 [facility] [email or web address]) Special Tests Neural Special Tests- Upper Body Radial Nerve Tension Test Results + Left Median Nerve Tension Test Results +Left PT-OP-M Strength Start: 11/03/20 11:20 Freq: Status: Active Protocol: Document 11/03/20 12:45 [facility] (Rec: 11/10/20 10:19 [facility] [email or web address]) Wrist Strength Wrist Manual Muscle Testing Left Flexion (C7) 5 Normal Extension (C6) 4 Good Ulnar Deviation 5 Normal Radial Deviation 4+ Good+ PT-OP-Q Treatments Start: 11/03/20 11:20 Freq: Status: Active Protocol: Document 11/23/20 09:48 [facility] (Rec: 11/23/20 12:15 [facility] [id number]) Therapeutic Exercises Prone Exercises ext Prone Exercise Name 1. ext 2. row Side bilateral Equipment Used 5# B Reps/Minutes 15 Comments overtball Sitting Exercises Wrist ext Sitting Exercise Name eccentric Side left Equipment Used 1# Reps/Minutes [address]/UD stretch Sitting Exercise Name RD Side left Equipment Used 1# Reps/Minutes 15 Wrist flexion Side left Equipment Used 1# Reps/Minutes 15 Manual Therapy Treatment Soft Tissue Mobilization 1 Body Location biceps L L forearm Body Location Left common extensor tendon, TFM at the attachement to the epicondlye Mobilization Type Rolling,Strumming,Trigger Point Release PT-OP-R Modalities Start: 11/10/20 13:13 Freq: Status: Active Protocol: Document 11/23/20 09:48 [facility] (Rec: 11/23/20 12:15 [facility] [id number]) Hot Pack/Cold Pack Treatment Ice Massage Location left common extensor tendon Patient Position Hooklying Treatment Duration (minutes) 5 Patient Tolerance Good Infrared Treatment Treatment L wrist extensor insertion Duration (Minutes) 1 Comments acute tendon/ligament mod pulsed PT-OP-T Assessment and Plan Start: 11/03/20 11:20 Freq: Status: Active Protocol: Document 11/23/20 09:48 [facility] (Rec: 11/23/20 12:15 [facility] [id number]) Physical Therapy Assessment Goals quick dash score of 19 Impairment quickdash score of 19 [facility] Goal (LTG) Quick dash score is improved by 6 or more points LTG Duration 8 weeks scalene and pectoralis tightness Impairment scalene and pectoralis tightness Short Term Goal (STG) Bharathi is educated on anterior chest flexibility exericses with the foam roll and stretches for the scalenes /upper trapezius STG Duration 4 weeks Tightness of the common extensor tendon Impairment L forearm tightness, pain with full wrist flexion/ pronation Short Term Goal (STG) Bharathi is able to tolerate stretching for the forearm into elbow extension, flexion, and pronation with overpressure STG Duration 4 weeks pain rated 3/10 at the common extensor tendon attachment on the left Impairment left elbow pain rated 3/10 that limits gripping and is limiting exercise [facility] Goal (LTG) Reduce left sided elbow pain and Bharathi is able to return to the resistance rope at the gym without pain LTG Duration 8 weeks Assessment Summary Assessment pt did well iwth all exercises reporting no inc in pain in elbow with exercises. His left scap did show dec abilityt oslide appropriately on thoracic spine which may be part of the contribuation of neural symptoms Physical Therapy Plan Frequency and Duration Frequency of Treatment 2x/Week Duration of Treatment 8 Plan of Care Start Date 11/03/20 Plan of Care End Date 12/29/20 Next Visit Focus/Plan Next Note Type Treatment Note Next Visit Plan review stretches for the pectoralis, wrist extensors, and lateral neck, work with manual techniques to reduce tension in the forearm, ice massage, postural education, radial and median nerve glides , foam roll strech& wrist exercises
--- NOTE | 2020-12-07 10:36 | PT.OTN ---
Current Diagnoses Lateral epicondylitis, left elbow (12/07/20) Pain in arm, unspecified (12/07/20) Physical Therapy Treatment Note PT-OP-A Visit Information Start: 11/03/20 11:20 Freq: Status: Active Protocol: Document 12/07/20 09:06 [facility] (Rec: 12/07/20 09:51 [facility] [id number]) Out-Patient Physical Therapy Visit Information Visit Information Visit Type Treatment Note Visit Start Time 09:05 Visit Stop Time 09:50 Total Visit Minutes 45 Visit Number 3 Number of WEAPONS ELECTRICAL ENGINEERING OFFICER Visits 0 PT-OP-B Current Condition Start: 11/03/20 11:20 Freq: Status: Active Protocol: Document 11/03/20 12:45 [facility] (Rec: 11/03/20 14:02 [facility] [id number]) Current Condition History of Current Condition Onset Date August 2020 Current Complaints left sided elbow pain and loss of strength History of Current Condition a couple of months ago started having tennis elbow symptoms, he stopped doing the exercises at the gym but his symptoms have hung on. History of cervical fusion he has strouble gripping things and has to use his scapula muscles to help him lift. Always tender to the touch. He was really liking the gym but feels like now he has to stop. 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 Prior Functional Status Baseline Function- ADL's Independent Baseline Function- Mobility Independent Current Functional Impairments (Reported) Functional Limitations- ADL's Bharathi is limited with activities that require gripping, he has moderate difficulty carrying a shopping bag PT-OP-C Subjective Start: 11/03/20 11:20 Freq: Status: Active Protocol: Document 12/07/20 09:06 [facility] (Rec: 12/07/20 09:51 [facility] [id number]) OP-PT Subjective Patient Comments Patient Comments Pt reprots when he sits still w/elbow bent it gets really tight when he straightens it PT-OP-F Manual Assessment Start: 11/03/20 11:20 Freq: Status: Active Protocol: Document 11/03/20 12:45 [facility] (Rec: 11/10/20 10:19 [facility] [email or web address]) Manual Assessments Soft Tissue Assessment Soft Tissue Mobility Assessment tightness over the common extensor tendon attachments to the lateral epicondyle tightness along scar, UT, LS, cervical paraspinals, scalenes & SCM B pectoralis minor tightness L > R Other Manual Assessments Other Manual Assessments + ULTT for median and radial nerves on the left side PT-OP-J Posture/Palpation/Skin Start: 11/03/20 11:20 Freq: Status: Active Protocol: Document 11/03/20 12:45 [facility] (Rec: 11/10/20 10:19 [facility] [email or web address]) Posture Evaluation Comments Posture Comments Mild fwd head, elevated L shoulder and scapula. Palpation Assessment Location left lateral epicondyle Palpation Location left lateral epicondyle Palpation Findings Spasm,Tenderness Palpation Details tenderness to palpation over the common extensor tendon PT-OP-K Range of Motion Start: 11/03/20 11:20 Freq: Status: Active Protocol: Document 11/03/20 12:45 [facility] (Rec: 11/10/20 10:19 [facility] [id number]) Cervical Spine Range of Motion Cervical Spine Active Degrees Testing Position Sitting Flexion 60 Extension 40 Rotation Left 70 Rotation Right 50 Lateral Flexion Left 50 Lateral Flexion Right 40 ROM Limitations Soft Tissue Tightness Comments hx of spinal surgery PT-OP-L Special Tests Start: 11/03/20 11:20 Freq: Status: Active Protocol: Document 11/03/20 12:45 [facility] (Rec: 11/10/20 10:19 [facility] [email or web address]) Special Tests Neural Special Tests- Upper Body Radial Nerve Tension Test Results + Left Median Nerve Tension Test Results +Left PT-OP-M Strength Start: 11/03/20 11:20 Freq: Status: Active Protocol: Document 11/03/20 12:45 [facility] (Rec: 11/10/20 10:19 [facility] [id number]) Wrist Strength Wrist Manual Muscle Testing Left Flexion (C7) 5 Normal Extension (C6) 4 Good Ulnar Deviation 5 Normal Radial Deviation 4+ Good+ PT-OP-Q Treatments Start: 11/03/20 11:20 Freq: Status: Active Protocol: Document 12/07/20 09:06 [facility] (Rec: 12/07/20 09:51 [facility] [id number]) Therapeutic Exercises Prone Exercises ext Prone Exercise Name 1. ext 2. row Side left Equipment Used 5# B Reps/Minutes 15 Comments EOB Sitting Exercises Wrist Flex strengthening Side left Equipment Used 1# Reps/Minutes 15 Wrist ext Sitting Exercise Name eccentric Side left Reps/Minutes 15 UD/RD strengthening Sitting Exercise Name RD Side left Equipment Used 1# Standing Exercises shoulder ext Side bilateral Equipment Used L1 Reps/Minutes 15 Comments focus on scap motion Manual Therapy Treatment Soft Tissue Mobilization L forearm Body Location Left common extensor tendon, TFM at the attachement to the epicondlye Mobilization Type Rolling,Strumming,Trigger Point Release Comments MFR w/circumfrential release Joint Mobilizations 1 Comments radius AP FM distal & proximal PT-OP-R Modalities Start: 11/10/20 13:13 Freq: Status: Active Protocol: Document 12/07/20 09:06 [facility] (Rec: 12/07/20 09:51 [facility] [id number]) Hot Pack/Cold Pack Treatment Ice Massage Location left common extensor tendon Patient Position Hooklying Treatment Duration (minutes) 5 Patient Tolerance Good PT-OP-T Assessment and Plan Start: 11/03/20 11:20 Freq: Status: Active Protocol: Document 12/07/20 09:06 [facility] (Rec: 12/07/20 09:51 [facility] [id number]) Physical Therapy Assessment Goals quick dash score of 19 Impairment quickdash score of 19 Mental Health Counselor Goal (LTG) Quick dash score is improved by 6 or more points LTG Duration 8 weeks scalene and pectoralis tightness Impairment scalene and pectoralis tightness Short Term Goal (STG) Bharathi is educated on anterior chest flexibility exericses with the foam roll and stretches for the scalenes /upper trapezius STG Duration 4 weeks Tightness of the common extensor tendon Impairment L forearm tightness, pain with full wrist flexion/ pronation Short Term Goal (STG) Bharathi is able to tolerate stretching for the forearm into elbow extension, flexion, and pronation with overpressure STG Duration 4 weeks pain rated 3/10 at the common extensor tendon attachment on the left Impairment left elbow pain rated 3/10 that limits gripping and is limiting exercise Mental Health Counselor Goal (LTG) Reduce left sided elbow pain and Bharathi is able to return to the resistance rope at the gym without pain LTG Duration 8 weeks Assessment Summary Assessment Pt did well with all exercises but wt was taken away w/elbow ext eccentrics d/t some discomfort. Improved abilityt o wrist ext into neutral postion as he was radially deviating after manual treatment. Pt reproted releif with MFR of forearm. He requires cues for scap engagment during all prone exercises. Physical Therapy Plan Frequency and Duration Frequency of Treatment 2x/Week Duration of Treatment 8 Plan of Care Start Date 11/03/20 Plan of Care End Date 12/29/20 Next Visit Focus/Plan Next Note Type Treatment Note Next Visit Plan review stretches for the pectoralis, wrist extensors, and lateral neck, work with manual techniques to reduce tension in the forearm, ice massage, postural education, radial and median nerve glides , foam roll strech& wrist exercises
--- NOTE | 2020-12-09 14:52 | PT.OTN ---
Current Diagnoses Lateral epicondylitis, left elbow (12/09/20) Pain in arm, unspecified (12/09/20) Physical Therapy Treatment Note PT-OP-A Visit Information Start: 11/03/20 11:20 Freq: Status: Active Protocol: Document 12/09/20 13:55 [facility] (Rec: 12/09/20 14:52 [facility] [id number]) Out-Patient Physical Therapy Visit Information Visit Information Visit Type Treatment Note Visit Start Time 13:51 Visit Stop Time 14:34 Total Visit Minutes 43 Visit Number 4 Number of CHRISTMAS TREE GRADER Visits 0 PT-OP-B Current Condition Start: 11/03/20 11:20 Freq: Status: Active Protocol: Document 11/03/20 12:45 [facility] (Rec: 11/03/20 14:02 [facility] [id number]) Current Condition History of Current Condition Onset Date August 2020 Current Complaints left sided elbow pain and loss of strength History of Current Condition a couple of months ago started having tennis elbow symptoms, he stopped doing the exercises at the gym but his symptoms have hung on. History of cervical fusion he has strouble gripping things and has to use his scapula muscles to help him lift. Always tender to the touch. He was really liking the gym but feels like now he has to stop. 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 Prior Functional Status Baseline Function- ADL's Independent Baseline Function- Mobility Independent Current Functional Impairments (Reported) Functional Limitations- ADL's Bharathi is limited with activities that require gripping, he has moderate difficulty carrying a shopping bag PT-OP-C Subjective Start: 11/03/20 11:20 Freq: Status: Active Protocol: Document 12/09/20 13:55 [facility] (Rec: 12/09/20 14:52 [facility] [id number]) OP-PT Subjective Patient Comments Patient Comments Pt reports he Patient Reported Progress Improving PT-OP-F Manual Assessment Start: 11/03/20 11:20 Freq: Status: Active Protocol: Document 11/03/20 12:45 [facility] (Rec: 11/10/20 10:19 [facility] [email or web address]) Manual Assessments Soft Tissue Assessment Soft Tissue Mobility Assessment tightness over the common extensor tendon attachments to the lateral epicondyle tightness along scar, UT, LS, cervical paraspinals, scalenes & SCM B pectoralis minor tightness L > R Other Manual Assessments Other Manual Assessments + ULTT for median and radial nerves on the left side PT-OP-J Posture/Palpation/Skin Start: 11/03/20 11:20 Freq: Status: Active Protocol: Document 11/03/20 12:45 [facility] (Rec: 11/10/20 10:19 [facility] [email or web address]) Posture Evaluation Comments Posture Comments Mild fwd head, elevated L shoulder and scapula. Palpation Assessment Location left lateral epicondyle Palpation Location left lateral epicondyle Palpation Findings Spasm,Tenderness Palpation Details tenderness to palpation over the common extensor tendon PT-OP-K Range of Motion Start: 11/03/20 11:20 Freq: Status: Active Protocol: Document 11/03/20 12:45 [facility] (Rec: 11/10/20 10:19 [facility] [email or web address]) Cervical Spine Range of Motion Cervical Spine Active Degrees Testing Position Sitting Flexion 60 Extension 40 Rotation Left 70 Rotation Right 50 Lateral Flexion Left 50 Lateral Flexion Right 40 ROM Limitations Soft Tissue Tightness Comments hx of spinal surgery PT-OP-L Special Tests Start: 11/03/20 11:20 Freq: Status: Active Protocol: Document 11/03/20 12:45 [facility] (Rec: 11/10/20 10:19 [facility] [id number]) Special Tests Neural Special Tests- Upper Body Radial Nerve Tension Test Results + Left Median Nerve Tension Test Results +Left PT-OP-M Strength Start: 11/03/20 11:20 Freq: Status: Active Protocol: Document 11/03/20 12:45 [facility] (Rec: 11/10/20 10:19 [facility] [email or web address]) Wrist Strength Wrist Manual Muscle Testing Left Flexion (C7) 5 Normal Extension (C6) 4 Good Ulnar Deviation 5 Normal Radial Deviation 4+ Good+ PT-OP-Q Treatments Start: 11/03/20 11:20 Freq: Status: Active Protocol: Document 12/09/20 13:55 [facility] (Rec: 12/09/20 14:52 [facility] [id number]) Therapeutic Exercises Standing Exercises flex Standing Exercise Name biceps curl Side bilateral Resistance 7# ea Reps/Minutes 2x12 ext Standing Exercise Name elbow Side bilateral Resistance L2, L3 Reps/Minutes 2x12 rotation Standing Exercise Name 1. supination 2. pronation Side bilateral Reps/Minutes 2x12 Manual Therapy Treatment Soft Tissue Mobilization L forearm Mobilization Type Rolling,Strumming,Trigger Point Release Comments 1.MFR w/circumfrential release 2.Left common extensor tendon, TFM at the attachement to the epicondlye and along extensors 3. brachioradialis & pronator teres Joint Mobilizations L carpel bones Joint L PA FM 1 Comments radius AP FM distal & proximal PT-OP-R Modalities Start: 11/10/20 13:13 Freq: Status: Active Protocol: Document 12/09/20 13:55 [facility] (Rec: 12/09/20 14:52 [facility] [id number]) Hot Pack/Cold Pack Treatment Ice Massage Location left common extensor tendon Patient Position Hooklying Treatment Duration (minutes) 3 Patient Tolerance Good Infrared Treatment Treatment L wrist extensor insertion Duration (Minutes) 1 Comments acute tendon/ligament cont PT-OP-T Assessment and Plan Start: 11/03/20 11:20 Freq: Status: Active Protocol: Document 12/09/20 13:55 [facility] (Rec: 12/09/20 14:52 [facility] [id number]) Physical Therapy Assessment Goals quick dash score of 19 Impairment quickdash score of 19 Mcfp Goal (LTG) Quick dash score is improved by 6 or more points LTG Duration 8 weeks scalene and pectoralis tightness Impairment scalene and pectoralis tightness Short Term Goal (STG) Bharathi is educated on anterior chest flexibility exericses with the foam roll and stretches for the scalenes /upper trapezius STG Duration 4 weeks Tightness of the common extensor tendon Impairment L forearm tightness, pain with full wrist flexion/ pronation Short Term Goal (STG) Bharathi is able to tolerate stretching for the forearm into elbow extension, flexion, and pronation with overpressure STG Duration 4 weeks pain rated 3/10 at the common extensor tendon attachment on the left Impairment left elbow pain rated 3/10 that limits gripping and is limiting exercise Mcfp Goal (LTG) Reduce left sided elbow pain and Bharathi is able to return to the resistance rope at the gym without pain LTG Duration 8 weeks Assessment Summary Assessment Pt did well with all exercises and reported no pain with exercises today. He had imrpoved wrist ext w/no radial deviation when pulled into ext. Physical Therapy Plan Frequency and Duration Frequency of Treatment 2x/Week Duration of Treatment 8 Plan of Care Start Date 11/03/20 Plan of Care End Date 12/29/20 Next Visit Focus/Plan Next Note Type Treatment Note Next Visit Plan work L forearm mobility & strength
--- NOTE | 2020-12-16 08:56 | PT.OTN ---
Current Diagnoses Lateral epicondylitis, left elbow (12/16/20) Pain in arm, unspecified (12/16/20) Physical Therapy Treatment Note PT-OP-A Visit Information Start: 11/03/20 11:20 Freq: Status: Active Protocol: Document 12/16/20 07:32 [facility] (Rec: 12/16/20 08:56 [facility] [id number]) Out-Patient Physical Therapy Visit Information Visit Information Visit Type Treatment Note Visit Start Time 07:31 Visit Stop Time 08:18 Total Visit Minutes 47 Visit Number 5 Number of MINING MACHINERY ASSEMBLER Visits 0 PT-OP-B Current Condition Start: 11/03/20 11:20 Freq: Status: Active Protocol: Document 11/03/20 12:45 [facility] (Rec: 11/03/20 14:02 [facility] [id number]) Current Condition History of Current Condition Onset Date August 2020 Current Complaints left sided elbow pain and loss of strength History of Current Condition a couple of months ago started having tennis elbow symptoms, he stopped doing the exercises at the gym but his symptoms have hung on. History of cervical fusion he has strouble gripping things and has to use his scapula muscles to help him lift. Always tender to the touch. He was really liking the gym but feels like now he has to stop. 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 Prior Functional Status Baseline Function- ADL's Independent Baseline Function- Mobility Independent Current Functional Impairments (Reported) Functional Limitations- ADL's Bharathi is limited with activities that require gripping, he has moderate difficulty carrying a shopping bag PT-OP-C Subjective Start: 11/03/20 11:20 Freq: Status: Active Protocol: Document 12/16/20 07:32 [facility] (Rec: 12/16/20 08:56 [facility] [id number]) OP-PT Subjective Patient Comments Patient Comments Pt notes pain is on /off. Still has difficulty gripping PT-OP-F Manual Assessment Start: 11/03/20 11:20 Freq: Status: Active Protocol: Document 11/03/20 12:45 [facility] (Rec: 11/10/20 10:19 [facility] [email or web address]) Manual Assessments Soft Tissue Assessment Soft Tissue Mobility Assessment tightness over the common extensor tendon attachments to the lateral epicondyle tightness along scar, UT, LS, cervical paraspinals, scalenes & SCM B pectoralis minor tightness L > R Other Manual Assessments Other Manual Assessments + ULTT for median and radial nerves on the left side PT-OP-J Posture/Palpation/Skin Start: 11/03/20 11:20 Freq: Status: Active Protocol: Document 11/03/20 12:45 [facility] (Rec: 11/10/20 10:19 [facility] [id number]) Posture Evaluation Comments Posture Comments Mild fwd head, elevated L shoulder and scapula. Palpation Assessment Location left lateral epicondyle Palpation Location left lateral epicondyle Palpation Findings Spasm,Tenderness Palpation Details tenderness to palpation over the common extensor tendon PT-OP-K Range of Motion Start: 11/03/20 11:20 Freq: Status: Active Protocol: Document 11/03/20 12:45 [facility] (Rec: 11/10/20 10:19 [facility] [email or web address]) Cervical Spine Range of Motion Cervical Spine Active Degrees Testing Position Sitting Flexion 60 Extension 40 Rotation Left 70 Rotation Right 50 Lateral Flexion Left 50 Lateral Flexion Right 40 ROM Limitations Soft Tissue Tightness Comments hx of spinal surgery PT-OP-L Special Tests Start: 11/03/20 11:20 Freq: Status: Active Protocol: Document 11/03/20 12:45 [facility] (Rec: 11/10/20 10:19 [facility] [id number]) Special Tests Neural Special Tests- Upper Body Radial Nerve Tension Test Results + Left Median Nerve Tension Test Results +Left PT-OP-M Strength Start: 11/03/20 11:20 Freq: Status: Active Protocol: Document 11/03/20 12:45 [facility] (Rec: 11/10/20 10:19 [facility] [id number]) Wrist Strength Wrist Manual Muscle Testing Left Flexion (C7) 5 Normal Extension (C6) 4 Good Ulnar Deviation 5 Normal Radial Deviation 4+ Good+ PT-OP-Q Treatments Start: 11/03/20 11:20 Freq: Status: Active Protocol: Document 12/16/20 07:32 [facility] (Rec: 12/16/20 08:56 [facility] [id number]) Therapeutic Exercises Sitting Exercises Thumb Ext Sitting Exercise Name all finger ext Side left Equipment Used rubber band Reps/Minutes 2x10 UD/RD strengthening Sitting Exercise Name RD Side left Equipment Used 1# Reps/Minutes 15 Wrist flexion Side left Equipment Used 1# Reps/Minutes 15 wrist extension Side left Equipment Used 1# Reps/Minutes 10 Standing Exercises flex Standing Exercise Name 1. biceps curl 7# B x15 2. hammer curl 2# w/eccentric x5 ext Standing Exercise Name elbow Side bilateral Resistance L3 Reps/Minutes 10 rotation Standing Exercise Name 1. supination 2. pronation Side bilateral Reps/Minutes 10 ea Manual Therapy Treatment Soft Tissue Mobilization 1 Body Location brachialis Mobilization Type Rolling,Strumming Intensity/Depth Moderate Body Position Supine L forearm Mobilization Type Rolling,Strumming,Trigger Point Release Comments 1.MFR w/circumfrential release 2.Left common extensor tendon, TFM at the attachement to the epicondlye and along extensors mm bellys & borders 3. brachioradialis & pronator teres Joint Mobilizations 1 Comments !.radius on ulna PA FM distal & proximal 2. distraction HU joint FM Self-Care/Home Management Treatment Education Other Education edu its okay to do activities that are painfree w/low weights (lat pull downs, rows, biceps curls, tricep ext) PT-OP-R Modalities Start: 11/10/20 13:13 Freq: Status: Active Protocol: Document 12/16/20 07:32 [facility] (Rec: 12/16/20 08:56 [facility] [id number]) Hot Pack/Cold Pack Treatment Ice Massage Location left common extensor tendon Patient Position Hooklying Treatment Duration (minutes) 3 Patient Tolerance Good PT-OP-T Assessment and Plan Start: 11/03/20 11:20 Freq: Status: Active Protocol: Document 12/16/20 07:32 [facility] (Rec: 12/16/20 08:56 [facility] [id number]) Physical Therapy Assessment Goals quick dash score of 19 Impairment quickdash score of 19 Reinforcer Goal (LTG) Quick dash score is improved by 6 or more points LTG Duration 8 weeks scalene and pectoralis tightness Impairment scalene and pectoralis tightness Short Term Goal (STG) Bharathi is educated on anterior chest flexibility exericses with the foam roll and stretches for the scalenes /upper trapezius STG Duration 4 weeks Tightness of the common extensor tendon Impairment L forearm tightness, pain with full wrist flexion/ pronation Short Term Goal (STG) Bharathi is able to tolerate stretching for the forearm into elbow extension, flexion, and pronation with overpressure STG Duration 4 weeks pain rated 3/10 at the common extensor tendon attachment on the left Impairment left elbow pain rated 3/10 that limits gripping and is limiting exercise Senior Care Goal (LTG) Reduce left sided elbow pain and Bharathi is able to return to the resistance rope at the gym without pain LTG Duration 8 weeks Assessment Summary Assessment Pt had imrpvoed elbow flex w/ pronation after manual treament along w/dec pain when moved through passively and actively with wt. Pt able to do bicep curl w/o pain but has pain w/hammer curl so was encouraged only to work on biceps curls at gym at this time. He is now able to do wrist ext w/1 # w/no inc in pain Physical Therapy Plan Frequency and Duration Frequency of Treatment 2x/Week Duration of Treatment 8 Plan of Care Start Date 11/03/20 Plan of Care End Date 12/29/20 Next Visit Focus/Plan Next Note Type Treatment Note Next Visit Plan resume laser, work on progressing UE strengthening exercises for pt to do at gym, start hand strengthening, cont to work on brachialis & brachioradialis manually along w/RU & HU jt [id number]
--- NOTE | 2020-12-22 09:13 | PT.OTN ---
Current Diagnoses Lateral epicondylitis, left elbow (12/22/20) Pain in arm, unspecified (12/22/20) Physical Therapy Treatment Note PT-OP-A Visit Information Start: 11/03/20 11:20 Freq: Status: Active Protocol: Document 12/22/20 09:01 [facility] (Rec: 12/22/20 09:13 [facility] [email or web address]) Out-Patient Physical Therapy Visit Information Visit Information Visit Type Treatment Note Visit Start Time 08:15 Visit Stop Time 09:00 Total Visit Minutes 45 Visit Number 6 Number of OD GRINDER OPERATOR Visits 0 Precautions Precautions Lifting restriction: 20-40# Recent Cervical surgery with spacers placed. PT-OP-B Current Condition Start: 11/03/20 11:20 Freq: Status: Active Protocol: Document 11/03/20 12:45 [facility] (Rec: 11/03/20 14:02 [facility] [id number]) Current Condition History of Current Condition Onset Date August 2020 Current Complaints left sided elbow pain and loss of strength History of Current Condition a couple of months ago started having tennis elbow symptoms, he stopped doing the exercises at the gym but his symptoms have hung on. History of cervical fusion he has strouble gripping things and has to use his scapula muscles to help him lift. Always tender to the touch. He was really liking the gym but feels like now he has to stop. Treatment Goals Patient/Caregiver Goals Bharathi would like to be able to return to his gym activities without pain, he would like to be able to certified surgical technologist withou pain. Prior Functional Status Baseline Function- ADL's Independent Baseline Function- Mobility Independent Current Functional Impairments (Reported) Functional Limitations- ADL's Bharathi is limited with activities that require gripping, he has moderate difficulty carrying a shopping bag PT-OP-C Subjective Start: 11/03/20 11:20 Freq: Status: Active Protocol: Document 12/22/20 09:01 OF (Rec: 12/22/20 09:13 OF [email or web address]) OP-PT Subjective Patient Comments Patient Comments pt states he is sore after kayaking for 90min yesterday Patient Reported Progress Same OP-PT Pain Assessment Pain Assessment Grid Paper Pain Assessment Grid Completed No Location left sided elbow pain Pain Location Details pain on the lateral epicondyle Intensity 6 Scale Used Numeric (0 - 10) Description Aching,Sharp,Throbbing,With Movement Frequency Frequent Pain Aggravating Factors ADL's,Activity,Exercise Other Pain Aggravating Factors gripping and carrying items Pain Alleviating Factors Cold,Inactivity PT-OP-F Manual Assessment Start: 11/03/20 11:20 Freq: Status: Active Protocol: Document 11/03/20 12:45 [facility] (Rec: 11/10/20 10:19 [facility] [email or web address]) Manual Assessments Soft Tissue Assessment Soft Tissue Mobility Assessment tightness over the common extensor tendon attachments to the lateral epicondyle tightness along scar, UT, LS, cervical paraspinals, scalenes & SCM B pectoralis minor tightness L > R Other Manual Assessments Other Manual Assessments + ULTT for median and radial nerves on the left side PT-OP-J Posture/Palpation/Skin Start: 11/03/20 11:20 Freq: Status: Active Protocol: Document 11/03/20 12:45 [facility] (Rec: 11/10/20 10:19 [facility] [email or web address]) Posture Evaluation Comments Posture Comments Mild fwd head, elevated L shoulder and scapula. Palpation Assessment Location left lateral epicondyle Palpation Location left lateral epicondyle Palpation Findings Spasm,Tenderness Palpation Details tenderness to palpation over the common extensor tendon PT-OP-K Range of Motion Start: 11/03/20 11:20 Freq: Status: Active Protocol: Document 11/03/20 12:45 [facility] (Rec: 11/10/20 10:19 [facility] [email or web address]) Cervical Spine Range of Motion Cervical Spine Active Degrees Testing Position Sitting Flexion 60 Extension 40 Rotation Left 70 Rotation Right 50 Lateral Flexion Left 50 Lateral Flexion Right 40 ROM Limitations Soft Tissue Tightness Comments hx of spinal surgery PT-OP-L Special Tests Start: 11/03/20 11:20 Freq: Status: Active Protocol: Document 11/03/20 12:45 [facility] (Rec: 11/10/20 10:19 [facility] [email or web address]) Special Tests Neural Special Tests- Upper Body Radial Nerve Tension Test Results + Left Median Nerve Tension Test Results +Left PT-OP-M Strength Start: 11/03/20 11:20 Freq: Status: Active Protocol: Document 11/03/20 12:45 [facility] (Rec: 11/10/20 10:19 [facility] [email or web address]) Wrist Strength Wrist Manual Muscle Testing Left Flexion (C7) 5 Normal Extension (C6) 4 Good Ulnar Deviation 5 Normal Radial Deviation 4+ Good+ PT-OP-Q Treatments Start: 11/03/20 11:20 Freq: Status: Active Protocol: Document 12/22/20 09:01 [facility] (Rec: 12/22/20 09:13 OF [email or web address]) Therapeutic Exercises Sitting Exercises Wrist Flex strengthening Side left Equipment Used 1# Reps/Minutes 15 Elbow ext Sitting Exercise Name Elbow ext Side left Resistance 20# Reps/Minutes 10x 2 UD/RD strengthening Sitting Exercise Name RD Side left Equipment Used 1# Reps/Minutes 15 Wrist flexion Side left Equipment Used 1# Reps/Minutes 15 wrist extension Side left Equipment Used 2# Reps/Minutes 2x10 Comments cues for eccentric focus, pt has difficulty demonstrating Standing Exercises ext Standing Exercise Name elbow Side bilateral Resistance L3 Reps/Minutes 10 shoulder ext Side bilateral Equipment Used L1 Reps/Minutes 15 Comments focus on scap motion Manual Therapy Treatment Soft Tissue Mobilization L forearm Mobilization Type Rolling,Strumming,Trigger Point Release Comments 1.Left common extensor tendon, TFM at the attachement to the epicondlye and along extensors mm bellys & borders 2. brachioradialis & pronator teres Joint Mobilizations L carpel bones Joint L PA FM Grade II Body Position Sitting Self-Care/Home Management Treatment Education Patient Education Body Mechanics,Home Exercise Program,Joint Protection,Pain Management,Safety Activities Self-Care/Home Management Activities pt educated upon avoiding repeated certified surgical technologist intensive activities, instead focus on exercises or leisure activities. Pt is reluctant to stop playing guitar which requires constant L hand gripping PT-OP-R Modalities Start: 11/10/20 13:13 Freq: Status: Active Protocol: Document 12/16/20 07:32 [facility] (Rec: 12/16/20 08:56 [facility] [id number]) Hot Pack/Cold Pack Treatment Ice Massage Location left common extensor tendon Patient Position Hooklying Treatment Duration (minutes) 3 Patient Tolerance Good PT-OP-T Assessment and Plan Start: 11/03/20 11:20 Freq: Status: Active Protocol: Document 12/22/20 09:01 [facility] (Rec: 12/22/20 09:13 OF [email or web address]) Physical Therapy Assessment Rehab Potential Rehabilitation Potential Good Evaluation Complexity Number of Personal Factors/Comorbidities 1-2 Number of Body Systems Impaired 1-2 Clinical Presentation at Evaluation Stable Impairments Impairments Activity Tolerance,Pain,Soft Tissue Mobility,Strength Progress Towards Goals Progress Towards Goals Slow Progress due to Activity Tolerance Assessment Summary Assessment Pt has difficulty altering activities to avoid repeated gripping, or prolonged activities such as kayaking. He does not follow instructions for eccentric exercises today. He requires redirection for HEP performance. He has good potential to return to I with managable symptoms if he can alter activities outside of therapy Physical Therapy Plan Frequency and Duration Frequency of Treatment 2x/Week Duration of Treatment 8 Plan of Care Start Date 11/03/20 Plan of Care End Date 12/29/20 Next Visit Focus/Plan Next Note Type Treatment Note Next Visit Plan reassess eccentric work for extensors and HEP, start hand strengthening, cont to work on brachialis & brachioradialis manually along w/RU & JARED jt mobs
--- NOTE | 2020-12-30 18:55 | PT.OTN ---
Current Diagnoses Lateral epicondylitis, left elbow (12/30/20) Pain in arm, unspecified (12/30/20) Physical Therapy Treatment Note PT-OP-A Visit Information Start: 11/03/20 11:20 Freq: Status: Active Protocol: Document 12/30/20 18:45 [facility] (Rec: 12/30/20 18:55 [facility] [email or web address]) Out-Patient Physical Therapy Visit Information Visit Information Visit Type Progress Note Visit Start Time 07:32 Visit Stop Time 08:17 Total Visit Minutes 45 Visit Number 7 Number of SPECIALTY SALES CONSULTANT Visits 0 PT-OP-B Current Condition Start: 11/03/20 11:20 Freq: Status: Active Protocol: Document 11/03/20 12:45 [facility] (Rec: 11/03/20 14:02 [facility] [id number]) Current Condition History of Current Condition Onset Date August 2020 Current Complaints left sided elbow pain and loss of strength History of Current Condition a couple of months ago started having tennis elbow symptoms, he stopped doing the exercises at the gym but his symptoms have hung on. History of cervical fusion he has strouble gripping things and has to use his scapula muscles to help him lift. Always tender to the touch. He was really liking the gym but feels like now he has to stop. Treatment Goals Patient/Caregiver Goals Bharathi would like to be able to return to his gym activities without pain, he would like to be able to technical specialist cytogenetics withou pain. Prior Functional Status Baseline Function- ADL's Independent Baseline Function- Mobility Independent Current Functional Impairments (Reported) Functional Limitations- ADL's Bharathi is limited with activities that require gripping, he has moderate difficulty carrying a shopping bag PT-OP-C Subjective Start: 11/03/20 11:20 Freq: Status: Active Protocol: Document 12/30/20 18:45 [facility] (Rec: 12/30/20 18:55 [facility] [email or web address]) OP-PT Subjective Patient Comments Patient Comments pt reports feeling better after sessions but ends up sore later PT-OP-F Manual Assessment Start: 11/03/20 11:20 Freq: Status: Active Protocol: Document 11/03/20 12:45 [facility] (Rec: 11/10/20 10:19 [facility] [email or web address]) Manual Assessments Soft Tissue Assessment Soft Tissue Mobility Assessment tightness over the common extensor tendon attachments to the lateral epicondyle tightness along scar, UT, LS, cervical paraspinals, scalenes & SCM B pectoralis minor tightness L > R Other Manual Assessments Other Manual Assessments + ULTT for median and radial nerves on the left side PT-OP-J Posture/Palpation/Skin Start: 11/03/20 11:20 Freq: Status: Active Protocol: Document 11/03/20 12:45 [facility] (Rec: 11/10/20 10:19 [facility] [email or web address]) Posture Evaluation Comments Posture Comments Mild fwd head, elevated L shoulder and scapula. Palpation Assessment Location left lateral epicondyle Palpation Location left lateral epicondyle Palpation Findings Spasm,Tenderness Palpation Details tenderness to palpation over the common extensor tendon PT-OP-K Range of Motion Start: 11/03/20 11:20 Freq: Status: Active Protocol: Document 11/03/20 12:45 [facility] (Rec: 11/10/20 10:19 [facility] [email or web address]) Cervical Spine Range of Motion Cervical Spine Active Degrees Testing Position Sitting Flexion 60 Extension 40 Rotation Left 70 Rotation Right 50 Lateral Flexion Left 50 Lateral Flexion Right 40 ROM Limitations Soft Tissue Tightness Comments hx of spinal surgery PT-OP-L Special Tests Start: 11/03/20 11:20 Freq: Status: Active Protocol: Document 11/03/20 12:45 [facility] (Rec: 11/10/20 10:19 [facility] [email or web address]) Special Tests Neural Special Tests- Upper Body Radial Nerve Tension Test Results + Left Median Nerve Tension Test Results +Left PT-OP-M Strength Start: 11/03/20 11:20 Freq: Status: Active Protocol: Document 12/30/20 18:45 [facility] (Rec: 12/30/20 18:55 [facility] [email or web address]) Wrist Strength Wrist Manual Muscle Testing Left Flexion (C7) 5 Normal Extension (C6) 4+ Good+ Ulnar Deviation 5 Normal Radial Deviation 5 Normal Comments pain w/ext; 5/5 elbow strength pain w/full range flex in pronated or supinated position ; median & radial n tension neg PT-OP-Q Treatments Start: 11/03/20 11:20 Freq: Status: Active Protocol: Document 12/30/20 18:45 [facility] (Rec: 12/30/20 18:55 [facility] [email or web address]) Self-Care/Home Management Treatment Education Other Education edu of importance of doing wrist strengthening exercises & icing at home also PT-OP-R Modalities Start: 11/10/20 13:13 Freq: Status: Active Protocol: Document 12/30/20 18:45 [facility] (Rec: 12/30/20 18:55 [facility] [email or web address]) Hot Pack/Cold Pack Treatment Ice Massage Location left common extensor tendon Patient Position Hooklying Treatment Duration (minutes) 3 Patient Tolerance Good PT-OP-T Assessment and Plan Start: 11/03/20 11:20 Freq: Status: Active Protocol: Document 12/30/20 18:45 [facility] (Rec: 12/30/20 18:55 [facility] [email or web address]) Physical Therapy Assessment Goals quick dash score of 19 Impairment quickdash score of 19 Director Card Goal (LTG) Quick dash score is improved by 6 or more points LTG Duration 8 weeks scalene and pectoralis tightness Impairment scalene and pectoralis tightness Short Term Goal (STG) Bharathi is educated on anterior chest flexibility exericses with the foam roll and stretches for the scalenes /upper trapezius STG Duration achieved Tightness of the common extensor tendon Impairment L forearm tightness, pain with full wrist flexion/ pronation Short Term Goal (STG) Bharathi is able to tolerate stretching for the forearm into elbow extension, flexion, and pronation with overpressure STG Duration achieved pain rated 3/10 at the common extensor tendon attachment on the left Impairment left elbow pain rated 3/10 that limits gripping and is limiting exercise Short Term Goal (STG) Pt will be able to play guitar w/o pain in elbow STG Duration 01/30/21 Director Card Goal (LTG) Reduce left sided elbow pain and Bharathi is able to return to the resistance rope at the gym without pain LTG Duration 8 weeks Assessment Summary Assessment pt had improved ability to flex elbow with out pain after manual treatment. He is making progress towards gaols but is still limited from activities w/major technical specialist cytogenetics strength and repetitive elbow movements. He woudl benefit from cont PT to work on his dec technical specialist cytogenetics strength and ability to perform his typical daily activities without inc pain. Physical Therapy Plan Frequency and Duration Frequency of Treatment 1-2x/Week Duration of Treatment 2 months Plan of Care Start Date 12/30/20 Plan of Care End Date 03/02/21 Therapeutic Interventions Therapeutic Interventions Home Exercise Program,Joint Mobilizations,Manual Therapy, Patient/Caregiver Education, Self-Care/Home Management,Soft Tissue Mobilization,Taping, Therapeutic Activities, Therapeutic Exercises Modalities Cold Pack/Ice Massage,Electric Stimulation,Hot Packs, Infrared Therapy,Iontophoresis ,Ultrasound Next Visit Focus/Plan Next Note Type Treatment Note Next Visit Plan reassess eccentric work for extensors and HEP, start hand strengthening, cont to work on brachialis & brachioradialis manually along w/RU & JARED jt mobs
--- NOTE | 2020-12-30 18:55 | PT.OPPOC ---
Physical, Occupational & Speech Therapy At [facility] Current Diagnoses Lateral epicondylitis, left elbow (12/30/20) Pain in arm, unspecified (12/30/20) Visit Care Team Role Provider Type Darnell Quintanilla DO Primary Care Provider Physician Specialty: [facility] Address: [address] [place] [address], [id number] Email: [email or web address] VALERY Alcantara Attending Provider Advanced Lieutenant General Family Provider Referring Provider Specialty: [facility] Address: [address] [place] [address], [id number] Email: [email or web address] Plan Of Care PT-OP-T Assessment and Plan Start: 11/03/20 11:20 Freq: Status: Active Protocol: Document 12/30/20 18:45 [facility] (Rec: 12/30/20 18:55 [facility] [email or web address]) Physical Therapy Assessment Goals quick dash score of 19 Impairment quickdash score of 19 Long-Term Goal (LTG) Quick dash score is improved by 6 or more points LTG Duration 8 weeks scalene and pectoralis tightness Impairment scalene and pectoralis tightness Short Term Goal (STG) Bharathi is educated on anterior chest flexibility exericses with the foam roll and stretches for the scalenes /upper trapezius STG Duration achieved Tightness of the common extensor tendon Impairment L forearm tightness, pain with full wrist flexion/ pronation Short Term Goal (STG) Bharathi is able to tolerate stretching for the forearm into elbow extension, flexion, and pronation with overpressure STG Duration achieved pain rated 3/10 at the common extensor tendon attachment on the left Impairment left elbow pain rated 3/10 that limits gripping and is limiting exercise Short Term Goal (STG) Pt will be able to play guitar w/o pain in elbow STG Duration 01/30/21 Long-Term Goal (LTG) Reduce left sided elbow pain and Bharathi is able to return to the resistance rope at the gym without pain LTG Duration 8 weeks Assessment Summary Assessment pt had improved ability to flex elbow with out pain after manual treatment. He is making progress towards gaols but is still limited from activities w/major hand tufter strength and repetitive elbow movements. He woudl benefit from cont PT to work on his dec hand tufter strength and ability to perform his typical daily activities without inc pain. Physical Therapy Plan Frequency and Duration Frequency of Treatment 1-2x/Week Duration of Treatment 2 months Plan of Care Start Date 12/30/20 Plan of Care End Date 03/02/21 Therapeutic Interventions Therapeutic Interventions Home Exercise Program,Joint Mobilizations,Manual Therapy, Patient/Caregiver Education, Self-Care/Home Management,Soft Tissue Mobilization,Taping, Therapeutic Activities, Therapeutic Exercises Modalities Cold Pack/Ice Massage,Electric Stimulation,Hot Packs, Infrared Therapy,Iontophoresis ,Ultrasound Next Visit Focus/Plan Next Note Type Treatment Note Next Visit Plan reassess eccentric work for extensors and HEP, start hand strengthening, cont to work on brachialis & brachioradialis manually along w/RU & HU jt mobs Plan of Care Dates Plan of Care Start Date 12/30/20 Plan of Care End Date 03/02/21 Electronically Signed by: Maribel Dietz, PT 12/30/20 1610 Please Sign and Return: I have reviewed this Plan of Care and certify that the skilled therapy services above are required to meet the patient?s needs. Physician Signature Date Printed Name and Credentials Clinical Instructor Signature Printed Name and Credentials
--- NOTE | 2021-01-12 18:22 | PT.OTN ---
Current Diagnoses Lateral epicondylitis, left elbow (01/12/21) Pain in arm, unspecified (01/12/21) Physical Therapy Treatment Note PT-OP-A Visit Information Start: 11/03/20 11:20 Freq: Status: Active Protocol: Document 01/12/21 13:14 [facility] (Rec: 01/12/21 18:20 [facility] [id number]) Out-Patient Physical Therapy Visit Information Visit Information Visit Type Treatment Note Visit Start Time 13:47 Visit Stop Time 14:30 Total Visit Minutes 43 Visit Number 8 Number of CITRIX ARCHITECT Visits 0 PT-OP-B Current Condition Start: 11/03/20 11:20 Freq: Status: Active Protocol: Document 11/03/20 12:45 [facility] (Rec: 11/03/20 14:02 [facility] [id number]) Current Condition History of Current Condition Onset Date August 2020 Current Complaints left sided elbow pain and loss of strength History of Current Condition a couple of months ago started having tennis elbow symptoms, he stopped doing the exercises at the gym but his symptoms have hung on. History of cervical fusion he has strouble gripping things and has to use his scapula muscles to help him lift. Always tender to the touch. He was really liking the gym but feels like now he has to stop. Treatment Goals Patient/Caregiver Goals Bharathi would like to be able to return to his gym activities without pain, he would like to be able to final finisher withou pain. Prior Functional Status Baseline Function- ADL's Independent Baseline Function- Mobility Independent Current Functional Impairments (Reported) Functional Limitations- ADL's Bharathi is limited with activities that require gripping, he has moderate difficulty carrying a shopping bag PT-OP-C Subjective Start: 11/03/20 11:20 Freq: Status: Active Protocol: Document 01/12/21 13:14 [facility] (Rec: 01/12/21 18:20 [facility] [id number]) OP-PT Subjective Patient Comments Patient Comments Pt reports seemed like he was doing better then had to do a lot of work at his mom's house and has been more sore now from inc use of arm. PT-OP-F Manual Assessment Start: 11/03/20 11:20 Freq: Status: Active Protocol: Document 11/03/20 12:45 [facility] (Rec: 11/10/20 10:19 [facility] [id number]) Manual Assessments Soft Tissue Assessment Soft Tissue Mobility Assessment tightness over the common extensor tendon attachments to the lateral epicondyle tightness along scar, UT, LS, cervical paraspinals, scalenes & SCM B pectoralis minor tightness L > R Other Manual Assessments Other Manual Assessments + ULTT for median and radial nerves on the left side PT-OP-J Posture/Palpation/Skin Start: 11/03/20 11:20 Freq: Status: Active Protocol: Document 11/03/20 12:45 [facility] (Rec: 11/10/20 10:19 [facility] [id number]) Posture Evaluation Comments Posture Comments Mild fwd head, elevated L shoulder and scapula. Palpation Assessment Location left lateral epicondyle Palpation Location left lateral epicondyle Palpation Findings Spasm,Tenderness Palpation Details tenderness to palpation over the common extensor tendon PT-OP-K Range of Motion Start: 11/03/20 11:20 Freq: Status: Active Protocol: Document 11/03/20 12:45 [facility] (Rec: 11/10/20 10:19 [facility] [id number]) Cervical Spine Range of Motion Cervical Spine Active Degrees Testing Position Sitting Flexion 60 Extension 40 Rotation Left 70 Rotation Right 50 Lateral Flexion Left 50 Lateral Flexion Right 40 ROM Limitations Soft Tissue Tightness Comments hx of spinal surgery PT-OP-L Special Tests Start: 11/03/20 11:20 Freq: Status: Active Protocol: Document 11/03/20 12:45 [facility] (Rec: 11/10/20 10:19 [facility] [id number]) Special Tests Neural Special Tests- Upper Body Radial Nerve Tension Test Results + Left Median Nerve Tension Test Results +Left PT-OP-M Strength Start: 11/03/20 11:20 Freq: Status: Active Protocol: Document 12/30/20 18:45 [facility] (Rec: 12/30/20 18:55 [facility] [id number]) Wrist Strength Wrist Manual Muscle Testing Left Flexion (C7) 5 Normal Extension (C6) 4+ Good+ Ulnar Deviation 5 Normal Radial Deviation 5 Normal Comments pain w/ext; 5/5 elbow strength pain w/full range flex in pronated or supinated position ; median & radial n tension neg PT-OP-Q Treatments Start: 11/03/20 11:20 Freq: Status: Active Protocol: Document 01/12/21 13:14 [facility] (Rec: 01/12/21 18:20 [facility] [id number]) Therapeutic Exercises Sitting Exercises Wrist Flex strengthening Sitting Exercise Name w/red tube Side bilateral Reps/Minutes 15 Pronation/Supination Sitting Exercise Name w/red tube Side bilateral Reps/Minutes 15 Gripping Side left Equipment Used red gripper Reps/Minutes 2x8 Wrist flexion Sitting Exercise Name stretch into wrist flex for extensors Reps/Minutes [id number] wrist extension Side left Equipment Used 1# Reps/Minutes 2x10 Comments cues for eccentric focus Manual Therapy Treatment Soft Tissue Mobilization 1 Body Location brachialis & pronator Mobilization Type Rolling,Strumming Intensity/Depth Moderate Body Position Supine L forearm Mobilization Type Rolling,Strumming,Trigger Point Release Comments 1.Left common extensor tendon, TFM at the attachement to the epicondlye and along extensors mm bellys & borders 2. brachioradialis & pronator teres Joint Mobilizations 1 Comments !.radius on ulna PA FM distal & proximal 2. distraction HU joint FM Self-Care/Home Management Treatment Education Other Education edu of importance of doing wrist strengthening exercises & icing at home also; discussed what to cont PT-OP-R Modalities Start: 11/10/20 13:13 Freq: Status: Active Protocol: Document 12/30/20 18:45 [facility] (Rec: 12/30/20 18:55 [facility] [id number]) Hot Pack/Cold Pack Treatment Ice Massage Location left common extensor tendon Patient Position Hooklying Treatment Duration (minutes) 3 Patient Tolerance Good PT-OP-T Assessment and Plan Start: 11/03/20 11:20 Freq: Status: Active Protocol: Document 01/12/21 13:14 [facility] (Rec: 01/12/21 18:20 [facility] [id number]) Physical Therapy Assessment Goals quick dash score of 19 Impairment quickdash score of 19 Respiratory Practitioner Goal (LTG) Quick dash score is improved by 6 or more points 12/30- LTG Duration 8 weeks scalene and pectoralis tightness Impairment scalene and pectoralis tightness Short Term Goal (STG) Bharathi is educated on anterior chest flexibility exericses with the foam roll and stretches for the scalenes /upper trapezius STG Duration achieved Tightness of the common extensor tendon Impairment L forearm tightness, pain with full wrist flexion/ pronation Short Term Goal (STG) Bharathi is able to tolerate stretching for the forearm into elbow extension, flexion, and pronation with overpressure STG Duration achieved pain rated 3/10 at the common extensor tendon attachment on the left Impairment left elbow pain rated 3/10 that limits gripping and is limiting exercise Short Term Goal (STG) Pt will be able to play guitar w/o pain in elbow STG Duration 01/30/21 Respiratory Practitioner Goal (LTG) Reduce left sided elbow pain and Bharathi is able to return to the resistance rope at the gym without pain LTG Duration 8 weeks Assessment Summary Assessment Pt is dc at this time d/t pt wanting to pursue therapy on RLE and to work on HEP for L elbow at this time. He has made good improvements with PT but still does have pain especialy when gripping. Dec painw/ elbow flex activities. Physical Therapy Plan Discharge Physical Therapy Discharge Reasons Patient Request Discharge Comments Pt plans to work on HEP and wants to start PT for RLE
== END 2021-01-13 08:02 | disposition home or self-care (01) ==
LOC: PHYS 13:45
PROVIDERS: Family Provider Nurse Practitioner; PCP Family Medicine; Referring Provider Nurse Practitioner; Visit Provider Nurse Practitioner
DX: M77.12 Lateral epicondylitis, left elbow (principal); M79.603 Pain in arm, unspecified
CPT/HCPCS: 97110; 97140; 97161; 97535

== ENCOUNTER 2021-02-18 08:20 | Emergency (ER) | payer OTHER, SELFPAY ==
[2021-02-18 08:20] VITALS: BP 127/81; PULSE 71; RESP 18; TEMP 36.6; O2SAT 96; BMI 30.2
--- NOTE | 2021-02-18 08:42 | PC.NURSE ---
pt states pain is 4/10 but gets up to 9/10. pt took 4 aleve tabs this am.
--- NOTE | 2021-02-18 08:44 | ED_ITS ---
HPI - Back Pain/Injury General Chief Complaint: Back Pain/Injury Stated Complaint: BACK PAIN-SPASMS. NOT SURE WHY Time Seen by Provider: 02/18/21 08:24 Source: patient Mode of arrival: Ambulatory Limitations: no limitations History of Present Illness HPI Narrative: This is a 56-year-old male who comes emergency department complaint of mid thoracic back pain more on the right than left but radiates to both sides. Patient states it does not radiate to his anterior chest. He denies any numbness, tingling or weakness. States that the pain also shoots down his spine. Patient states is worse with movement, bending but has become more persistent and frequent over the last several days. Patient has had symptoms for 2-3 weeks. He does not recall any inciting factor. He does know he has been going to PT for his psoas muscle on the right. Patient has had multiple orthopedic surgeries including C-spine surgery remotely. As well as Jaye fundoplication and appendectomy. Patient does take medication for h ypertension and omeprazole. He does have a history of prostate cancer in the past. Patient denies any syncope. He denies any chest pain, shortness of breath, no diaphoresis, no nausea or vomiting, patient has not any numbness, tingling or weakness in his extremities. He denies any new GI or urinary symptoms. No bowel or bladder incontinence. Patient with his prior cervical symptoms had paresthesias which he does not appreciate any longer. Patient did try Aleve and 2 gabapentin at home last night with minimal improvement. He is allergic to penicillin and hydrocodone. Related Data Previous Rx's Medication Instructions Recorded lisinopril 10 mg tablet 10 mg PO DAILY #90 tab 04/08/20 omeprazole 20 mg capsule,delayed 20 mg PO DAILY #90 cap 11/26/20 release temazepam 30 mg capsule See Rx Instructions .ROUTE 02/16/21 .COMPLEX #30 cap diazepam 10 mg tablet (Valium) 5 mg PO BID PRN #10 tab 02/18/21 meloxicam 7.5 mg tablet 7.5 mg PO BID PRN #10 tab 02/18/21 Allergies Allergy/AdvReac Type Severity Reaction Status Date / Time Penicillins [PENICILLINS] Allergy Mild Verified 08/24/20 08:20 hydrocodone AdvReac Intermediate vomiting Verified 08/24/20 08:20 Review of Systems Review of Systems ROS Unobtainable: All systems reviewed & are unremarkable except as noted in HPI and below Patient History Medical History Colon polyps (~2009) Elevated PSA (~2012) History of malignant neoplasm of prostate (12/26/16) Left knee pain Meralgia paresthetica Prostate cancer (~2013) Right hip pain Seasonal allergies Well adult exam Surgical History Anesthesia History of appendectomy History of neck surgery History of Jaye fundoplication History of vasectomy Status post prostatectomy Social History household members: spouse Smoking Status: Current some day smoker alcohol intake: current Smoking Status: Current some day smoker tobacco type: cigars alcohol intake frequency: 0-2 drinks per day Substance Use Type: does not use Exam Narrative Exam Narrative: GENERAL: Alert and oriented x three, male in mild distress. HEENT: Head normocephalic, atraumatic, EOMI, pupils reactive, face symmetric, moist mucous membranes NECK: Supple, full range of motion CARDIOVASCULAR: Regular rate and rhythm without murmurs, rubs or gallops. RESPIRATORY: Breath sounds equal bilaterally, no wheezes rales or rhonchi. ABDOMEN: Soft, nontender. Normoactive bowel sounds all 4 quadrants. No guarding or rebound, rigidity, no mass. Nondistended. : No CVA tenderness BACK: No cervical, thoracic or lumbar vertebral point tenderness. Patient has normal range of motion. Patient's gait is normal. Rectal exam is deferred. Muscle strength is 5/5 in lower extremities, DTRs are 2/4 and lower extremities. tibialis pulses are 2+ lower extremities. Sensation is intact in the lower extremities equally. EXTREMITIES: Normal range of motion of upper and lower extremities, no edema. Neurovascularly intact NEUROLOGICAL: Cranial nerves II through XII grossly intact. Moving all extremities SKIN: Warm, dry, no petechiae, no rashes or lesions. Initial Vital Signs Initial Vital Signs: Vital Signs Temperature 97.8 F 02/18/21 08:20 Pulse Rate 71 02/18/21 08:20 Respiratory Rate 18 02/18/21 08:20 Blood Pressure 127/81 08/20/21 08:20 Pulse Oximetry 96 08/20/21 08:20 Course Orders Ordered: Discontinued Medications Diazepam (Diazepam 5 Mg Tablet) 10 mg PO NOW ONE Stop: 02/18/21 08:56 Last Admin: 02/18/21 09:09 Dose: 10 mg Documented by: LUIS ANGEL Ketorolac Tromethamine (Ketorolac 30 Mg/Ml Vial) 30 mg IM NOW ONE Stop: 02/18/21 08:56 Last Admin: 02/18/21 09:09 Dose: 30 mg Documented by: LUIS ANGEL Vital Signs Vital signs: Vital Signs - 8 hr 02/18/21 08:20 Temperature 97.8 F Pulse Rate 71 Respiratory Rate 18 Blood Pressure 127/81 Pulse Oximetry 96 [facility] - Back Pain/Injury Imaging Data tspine xray: Radiologist's Impression: [address] [id number] ReportSigned Patient: Bharathi Boothe FMR#: [id number]: 1965Acct:[id number]/Sex: 56 / MDate of Service: 02/18/21Loc: EDAccession Number: [id number] Procedure: XR thoracic spine 3V Ordering Provider: Marilynn Hoyos D.O. PROCEDURE: XR THORACIC SPINE 3V INDICATIONS: midback thoracic pain for wks, remote hx prostate cancer TECHNIQUE: 3 views of the thoracic spine were acquired. COMPARISON: None. FINDINGS: Bones: No acute fracture. C5-C6 ACDF noted. Straightening of the normal lordotic curvature. Moderate narrowing of the C3-C4 and C4-C5 disc spaces. Multilevel degenerative endplate sclerosis and spurring. Diffuse facet arthropathy. No definite thoracic disc space narrowing. Chronic appearing right clavicle fracture. Soft tissues: No paravertebral stripe thickening. IMPRESSION: Postsurgical and degenerative changes as above. No acute fracture identified. Dictated by: Varun Ramos M.D. on 02/18/2021 at 9:49 Approved by: Varun Ramos M.D. on 02/18/2021 at 9:51 ECG Data Attestation: I personally reviewed and interpreted this ECG as follows: Prior ECG tracings: available for review Interpretation: Normal sinus rhythm, rate of 74, P are 146 QRS of 94 and QTC of 408. No acute ST changes appreciated. Prior from 03/02/10 appears similar. MDM Narrative Medical decision making narrative: This is a 56-year-old male with what sounds like musculoskeletal pain. Patient has been in PT for his psoas muscle this is a potential causes he has been doing that for 3-4 weeks. But patient does have a remote history prostate cancer so x-ray imaging was obtained. Patient has no other red flag signs or symptoms or examination findings today. Patient was given Toradol as well as muscle relaxer. Xray shows no acute findings. On recheck, patient is feeling better. Discharge Plan Departure Patient Disposition: Home Clinical Impression: Back pain, thoracic Qualifiers: Back pain laterality: bilateral Instructions: Thoracic Back Pain Activity Restrictions/Additional Instructions: Follow up with your physician for recheck if you are not improving in the next several days/week. Call for an appointment. Note also recommend discussing with your physical therapist they may adjust your treatment. You may take pain medication every 12 hours as needed. Do not take ibuprofen, NSAIDs, Aleve or naproxen with this medication. You may take the muscle relaxer prescribed with this medication. Take a muscle relaxer as prescribed. This medication can make you sleepy do not drive, perform hazardous activities or make any major decisions while taking it. Prescription sent to [place] pharmacy. Please return for fevers, new or worse rapidly worsening back pain, numbness, tingling or weakness in your extremities, loss of bowel or bladder control, numbness in the groin, new rash or skin changes, passing out, new chest pain or shortness of breath or other new or concerning symptoms. Prescriptions: New diazepam [Valium] 10 mg tablet 5 mg PO BID PRN (Reason: muscle spasm) Qty: 10 RF: 0 meloxicam 7.5 mg tablet 7.5 mg PO BID PRN (Reason: pain) Qty: 10 RF: 0 No Action temazepam 30 mg capsule See Rx Instructions .ROUTE .COMPLEX Qty: 30 RF: 3 omeprazole 20 mg capsule,delayed release(DR/EC) 20 mg PO DAILY Qty: 90 RF: 3 ketorolac 60 mg/2 mL syringe RF: 0 lisinopril 10 mg tablet 10 mg PO DAILY Qty: 90 RF: 3 Referrals: Darnell Quintanilla, [Primary Care Provider] -
--- NOTE | 2021-02-18 08:55 | DI.RAD.S_ITS ---
PROCEDURE: XR THORACIC SPINE 3V INDICATIONS: midback thoracic pain for wks, remote hx prostate cancer TECHNIQUE: 3 views of the thoracic spine were acquired. COMPARISON: None. FINDINGS: Bones: No acute fracture. C5-C6 ACDF noted. Straightening of the normal lordotic curvature. Moderate narrowing of the C3-C4 and C4-C5 disc spaces. Multilevel degenerative endplate sclerosis and spurring. Diffuse facet arthropathy. No definite thoracic disc space narrowing. Chronic appearing right clavicle fracture. Soft tissues: No paravertebral stripe thickening. IMPRESSION: Postsurgical and degenerative changes as above. No acute fracture identified. Dictated by: Varun Ramos M.D. on 02/18/2021 at 9:49 Approved by: Varun Ramos M.D. on 02/18/2021 at 9:51
[2021-02-18] MEDS: KETOROLAC 30 MG/ML VIAL IM (09:09)
[2021-02-18] MEDS: diazePAM 5 MG TABLET 10 MG PO (09:09)
[2021-02-18 10:13] VITALS: BP 111/72; PULSE 68; O2SAT 97
== END 2021-02-18 10:14 | disposition home or self-care (01) ==
PROVIDERS: Emergency Provider Emergency Medicine; PCP Family Medicine
DX: M54.6 Pain in thoracic spine (principal)
CPT/HCPCS: 72072; 93005; 93010; 96372; 99284; J1885

== ENCOUNTER → 2021-03-21 09:20 | Outpatient (CLI) | payer OTHER, SELFPAY ==
[2021-03-21 16:55] LABS: Vitamin D 25 Hydroxy (D3) 70.2 ng/mL (30.0-100.0)
[2021-03-29 15:32] LABS: SARS-CoV-2 Antibody Titer <0.4
== END ==
PROVIDERS: PCP Family Medicine; Referring Provider Nurse Practitioner; Visit Provider Nurse Practitioner
DX: S92.402A Displaced unspecified fracture of left great toe, initial encounter for closed fracture (principal); Z20.822 Contact with and (suspected) exposure to COVID-19
CPT/HCPCS: 36415; 82306; 86769

== ENCOUNTER → 2021-03-29 10:22 | Outpatient (CLI) | payer OTHER, SELFPAY ==
[2021-03-29 12:43] LABS: Prostate Specific Antigen < 0.064 ng/mL (0.10-4.00)
== END ==
PROVIDERS: PCP Family Medicine; Referring Provider Urology; Visit Provider Urology
DX: Z85.46 Personal history of malignant neoplasm of prostate (principal)
CPT/HCPCS: 36415; 84153

== ENCOUNTER → 2021-04-19 10:40 | Outpatient (CLI) | payer OTHER, SELFPAY ==
--- NOTE | 2021-04-19 10:41 | DI.MRI.S_ITS ---
PROCEDURE: MR HIP RT WO CON INDICATIONS: Right lateral and posterior thigh x5 weeks. TECHNIQUE: Noncontrast coronal T1 spin echo and STIR through the bony pelvis. Coronal and axial T2 fast spin echo with fat saturation, sagittal T1 spin echo, and oblique axial T2 fast spin echo with fat saturation through the hip. COMPARISON: None. FINDINGS: Image quality: Excellent. Bones and joints: Bone marrow of the pelvic ring and proximal femurs show normal signal throughout. No intraosseous lesions or fractures. No avascular necrosis of the femoral heads. Tendons and ligaments: The gluteus medius and minimus tendons appear intact, without associated muscle atrophy. The nearby proximal iliotibial band also appears intact. The iliopsoas tendon appears intact, without adjacent bursal fluid collections or evidence for impingement syndrome. Thickening with T2 hyperintense signal at the ischial tuberosity, compatible with partial tear of the hamstring tendons. The ligamentum teres appears intact where visualized. Labrum and cartilage: The acetabular labrum appears intact in the absence of intra-articular contrast. Cartilage surface of the femoral head appears thinned and heterogeneous. Soft tissues: Visualized muscles demonstrate normal bulk and internal signal. No free pelvic fluid. Bladder wall thickness is normal. IMPRESSION: 1. Right hamstring tendinopathy with partial tear at the ischial tuberosity. Dictated by: Behzad Ramos M.D. on 04/19/2021 at 15:10 Approved by: Behzad Ramos M.D. on 04/19/2021 at 15:18
--- NOTE | 2021-04-19 10:41 | DI.MRI.S_ITS ---
PROCEDURE: MR LUMBAR SPINE WO CON INDICATIONS: low back pain TECHNIQUE: Noncontrast sagittal T1 spin echo and T2 fast echo, sagittal STIR, axial T1 and T2 fast spin echo through the lumbar spine. In cases with scoliosis, additional coronal T2 fast spin echo may be performed. COMPARISON: [facility], MR, L-SPINE WITHOUT CONTRAST, 09/04/2008, 10:34. [facility], MR, L-SPINE WITHOUT CONTRAST, 05/30/2011, 8:51. [facility], MR, L-SPINE WITHOUT CONTRAST, 05/16/2016, 8:41. [facility], MR, MR LUMBAR SPINE WO CON, 10/10/2018, 18:51. FINDINGS: Image quality: Excellent. Alignment and Curvature: There is minimal retrolisthesis at L1-L2 and L2-L3. Bone Marrow: Marrow is of normal overall signal. No acute vertebral body compression fractures. Spinal Cord: Conus medullaris terminates at the T12-L1 level. Visualized cord demonstrates normal signal and size. Paraspinous Soft Tissues: No paravertebral masses. T12-L1: Normal appearance. L1-L2: The disc height and disc signal are relatively well preserved. There is a remote Schmorl's node seen involving the inferior endplate of L1. No significant neural foraminal or central canal narrowing can be seen. L2-L3: The disc height is well-preserved. Loss of disc signal is seen at this level. Mild generalized disc bulge is seen. No significant neural foraminal or central canal narrowing can be seen. L3-L4: The disc height and disc signal are relatively well preserved. Mild to moderate disc bulge is seen, which is slightly eccentric to the right. Moderate facet hypertrophy is seen, right worse than left. Moderate bilateral neural foraminal narrowing is seen. Mild central canal narrowing is seen. These imaging findings have progressed compared to the prior study. L4-L5: The disc height and disc signal are relatively well preserved. Mild to moderate disc bulge is seen. Moderate facet hypertrophy is seen, right worse than left. There is moderate left-sided and [id number] right-sided neural foraminal narrowing seen. Minimal central canal narrowing is seen. When comparison is made with the prior images, these findings are similar. L5-S1: The disc height and disc signal are relatively well preserved. Minimal disc bulge is seen. Mild to moderate facet hypertrophy is seen, right worse than left. There is [id number] left-sided and mild right-sided neural foraminal narrowing seen. No significant central canal narrowing is seen. When comparison is made to the 2019 images, these findings are similar. IMPRESSION: Mild progression of degenerative change seen at the L3-L4 level compared to 2019. Otherwise, the degenerative changes are similar to the prior. Dictated by: Rohan Tracey M.D. on 04/19/2021 at 12:53 Approved by: Rohan Tracey M.D. on 04/19/2021 at 13:01
== END ==
PROVIDERS: PCP Family Medicine; Referring Provider Nurse Practitioner; Visit Provider Nurse Practitioner
DX: M54.50 Low back pain, unspecified (principal); M47.816 Spondylosis without myelopathy or radiculopathy, lumbar region; M79.651 Pain in right thigh; S76.011A Strain of muscle, fascia and tendon of right hip, initial encounter
CPT/HCPCS: 72148; 73721

== ENCOUNTER 2021-04-26 09:45 | Outpatient (RCR) | payer OTHER, SELFPAY ==
--- NOTE | 2021-01-27 17:46 | PT.OIE ---
Current Diagnoses Pain in right hip (01/27/21) Pain in left knee (01/27/21) Past Medical History (Last Reviewed 01/27/21 @ 15:38 by VALERY Alcantara) Colon polyps (~2009) Elevated PSA (~2012) History of appendectomy History of malignant neoplasm of prostate (12/26/16) History of neck surgery History of Jaye fundoplication History of vasectomy Left knee pain Meralgia paresthetica Prostate cancer (~2013) Right hip pain Seasonal allergies Status post prostatectomy Well adult exam Past Surgical History (Last Reviewed 01/27/21 @ 15:38 by VALERY Alcantara) Anesthesia History of appendectomy History of neck surgery History of Jaye fundoplication History of vasectomy Status post prostatectomy Visit Care Team Role Provider Type Darnell Quintanilla DO Primary Care Provider Physician Specialty: Family Practice Address: [address] [place] [address] Email: [email or web address] VALERY Yu Attending Provider Advanced Enforcement Safety Officer Referring Provider Specialty: Medical Address: [address] [place] [address], [facility] Email: [email or web address] Physical Therapy Initial Evaluation PT-OP-A Visit Information Start: 01/27/21 17:04 Freq: Status: Active Protocol: Document 01/27/21 16:00 [facility] (Rec: 01/27/21 17:18 [facility] [id number]) Out-Patient Physical Therapy Visit Information Visit Information Visit Type Initial Evaluation Visit Start Time 16:00 Visit Stop Time 16:45 Total Visit Minutes 45 Visit Number 1 Number of PBX MECHANIC Visits 0 Evaluation Information Evaluation Date 01/27/21 PT-OP-B Current Condition Start: 01/27/21 17:04 Freq: Status: Active Protocol: Document 01/27/21 16:00 [facility] (Rec: 01/27/21 17:18 [facility] [id number]) Current Condition History of Current Condition Onset Date ~2 months Current Complaints Right hip and thigh pain, right knee pain History of Current Condition Pt is a 56 year old male with a two months history of right hip and left knee pain. Pt reports that he was running on a treadmill at the gym, and felt either a pull or pop in his right hip, along with a sudden pain. Pt reports pain has continued off and on since , mostly when he is driving his car more than 25 minutes, and he begins to experience numbness and pain in his thigh . Pt has had to stop running at the gym, which is throwing off his workout routine. Additionally, around that same timeframe, he was kneeling on the floor to play with his dogs, and he got a sudden intense pain in his left knee at the area of his patellar tendon and up along the lateral side of his patella. Notes he only experiences this pain when he is kneeling. Prior Treatments and Tests Pt has been treated at this clinic for a multitude of various injuries PT-OP-C Subjective Start: 01/27/21 17:04 Freq: Status: Active Protocol: Document 01/27/21 16:00 [facility] (Rec: 01/27/21 17:18 [facility] [id number]) OP-PT Subjective Patient Comments Patient Comments I can't seem to go more than 6 months without something going wrong and ending up back in here. Patient Questionnaires Lower Extremity Functional Scale LEFS Score 48/80 = 60% LEFS Impairment 20 to 39% Impaired (Score 48- 62) PT-OP-F Manual Assessment Start: 01/27/21 17:04 Freq: Status: Active Protocol: Document 01/27/21 16:00 [facility] (Rec: 01/27/21 17:22 [facility] [id number]) Manual Assessments Soft Tissue Assessment Soft Tissue Mobility Assessment Severe tone with tenderness to palpation 3/4: Wincing and withdraw R psoas, R ITB Moderate tone with tenderness to palpation 2/4: Pain with wincing R Piriformis, L ITB Joint Mobility Assessment Joint Mobility Assessment Left patella elevated compared to right in sitting PT-OP-K Range of Motion Start: 01/27/21 17:04 Freq: Status: Active Protocol: Document 01/27/21 16:00 [facility] (Rec: 01/27/21 17:27 [facility] [id number]) Hip Goniometric Range of Motion Hip Right Active Hip ROM WFL Yes Testing Position Supine Left Active Hip ROM WFL Yes Testing Position Supine PT-OP-L Special Tests Start: 01/27/21 17:04 Freq: Status: Active Protocol: Document 01/27/21 16:00 [facility] (Rec: 01/27/21 17:27 [facility] [id number]) Special Tests Hip Special Tests Niall Test Results positive R psoas tightness Straight Leg Raise Test Results R HS tightness at 35? Scour Test Test Results Negative Posterior Labral Test Test Results Negative Morrison's Compression Test Results Negative Anterior Labral Test Test Results Negative PT-OP-M Strength Start: 01/27/21 17:04 Freq: Status: Active Protocol: Document 01/27/21 16:00 [facility] (Rec: 01/27/21 17:27 [facility] [id number]) Hip Strength Hip Manual Muscle Testing Right Flexion (L2) 4 Good Abduction 4+ Good+ Adduction 4+ Good+ External Rotation 4+ Good+ Internal Rotation 4+ Good+ Left Flexion (L2) 4 Good Abduction 4+ Good+ Adduction 4+ Good+ External Rotation 4+ Good+ Internal Rotation 4+ Good+ PT-OP-Q Treatments Start: 01/27/21 17:04 Freq: Status: Active Protocol: Document 01/27/21 16:00 [facility] (Rec: 01/27/21 17:19 [facility] [id number]) Therapeutic Exercises Supine Exercises 2 Supine Exercise Name ITB stretch /c strap Side right 1 Supine Exercise Name Supine Psoas stretch - leg off table Side right Standing Exercises 1 Standing Exercise Name Standing quad stretch Side left PT-OP-T Assessment and Plan Start: 01/27/21 17:04 Freq: Status: Active Protocol: Document 01/27/21 16:00 [facility] (Rec: 01/27/21 17:46 [facility] [id number]) Physical Therapy Assessment Rehab Potential Rehabilitation Potential Good Evaluation Complexity Number of Personal Factors/Comorbidities 1-2 Number of Body Systems Impaired 3 Clinical Presentation at Evaluation Stable Impairments Impairments Functional Activities,Pain, Soft Tissue Mobility,Strength, Tone Goals Two Impairment Pt unable to drive car longer than 25 minutes without R LE pain/numbness Tafe Registrar Goal (LTG) Pt to drive for 90 minutes without any increase in right lower extremity symptoms LTG Duration 03/30/21 One Impairment Pt does not have an appropriate home exercise program Short Term Goal (STG) Pt to be independent and compliant with an appropriate HEP STG Duration 02/27/21 Assessment Summary Assessment Pt presents with signs and symptoms consistent with a moderately severe right psoas strain. Psoas is incredibly high tone and very tender to palpation, and appears to have caused some protective spasming in his right hamstrings, piriformis, and ITB. Additionally, pt's left quad tightness seems to be elevating his left patella, which is causing his complaints of pain with kneeling. At this time, pt's biggest limitation is pain and numbness while driving longer than 25 minutes, as well as not being able to participate in his usual cardio activities . Pt should benefit from skilled therapy focusing on increased stretching and flexibility of the left quad, and right psoas, ITB, and hamstrings. Physical Therapy Plan Frequency and Duration Frequency of Treatment 2x/Week Duration of Treatment Two months Plan of Care Start Date 01/27/21 Plan of Care End Date 03/30/21 Therapeutic Interventions Therapeutic Interventions Home Exercise Program,Joint Mobilizations,Manual Therapy, Patient/Caregiver Education, Self-Care/Home Management,Soft Tissue Mobilization, Therapeutic Exercises Modalities Cold Pack/Ice Massage,Hot Packs Next Visit Focus/Plan Next Note Type Treatment Note Next Visit Plan STM, R psoas/L quad stretching , hip flexor strengthening
--- NOTE | 2021-01-27 17:47 | PT.OPPOC ---
Physical, Occupational & Speech Therapy At [facility] Current Diagnoses Pain in right hip (01/27/21) Pain in left knee (01/27/21) Visit Care Team Role Provider Type Darnlel Quintanilla DO Primary Care Provider Physician Specialty: Family Practice Address: [address] [place] [address], [facility] Email: [email or web address] VALERY Yu Attending Provider Advanced Hand Leather Trimmer Referring Provider Specialty: Medical Address: [address] [place] [address], [facility] Email: [email or web address] Plan Of Care PT-OP-T Assessment and Plan Start: 01/27/21 17:04 Freq: Status: Active Protocol: Document 01/27/21 16:00 [facility] (Rec: 01/27/21 17:46 [facility] [id number]) Physical Therapy Assessment Rehab Potential Rehabilitation Potential Good Evaluation Complexity Number of Personal Factors/Comorbidities 1-2 Number of Body Systems Impaired 3 Clinical Presentation at Evaluation Stable Impairments Impairments Functional Activities,Pain, Soft Tissue Mobility,Strength, Tone Goals Two Impairment Pt unable to drive car longer than 25 minutes without R LE pain/numbness Care Home Goal (LTG) Pt to drive for 90 minutes without any increase in right lower extremity symptoms LTG Duration 03/30/21 One Impairment Pt does not have an appropriate home exercise program Short Term Goal (STG) Pt to be independent and compliant with an appropriate HEP STG Duration 02/27/21 Assessment Summary Assessment Pt presents with signs and symptoms consistent with a moderately severe right psoas strain. Psoas is incredibly high tone and very tender to palpation, and appears to have caused some protective spasming in his right hamstrings, piriformis, and ITB. Additionally, pt's left quad tightness seems to be elevating his left patella, which is causing his complaints of pain with kneeling. At this time, pt's biggest limitation is pain and numbness while driving longer than 25 minutes, as well as not being able to participate in his usual cardio activities . Pt should benefit from skilled therapy focusing on increased stretching and flexibility of the left quad, and right psoas, ITB, and hamstrings. Physical Therapy Plan Frequency and Duration Frequency of Treatment 2x/Week Duration of Treatment Two months Plan of Care Start Date 01/27/21 Plan of Care End Date 03/30/21 Therapeutic Interventions Therapeutic Interventions Home Exercise Program,Joint Mobilizations,Manual Therapy, Patient/Caregiver Education, Self-Care/Home Management,Soft Tissue Mobilization, Therapeutic Exercises Modalities Cold Pack/Ice Massage,Hot Packs Next Visit Focus/Plan Next Note Type Treatment Note Next Visit Plan STM, R psoas/L quad stretching , hip flexor strengthening Plan of Care Dates Plan of Care Start Date 01/27/21 Plan of Care End Date 03/30/21 Electronically Signed by: Rafat Gonzalez, PT 01/27/21 [id number] Please Sign and Return: I have reviewed this Plan of Care and certify that the skilled therapy services above are required to meet the patient?s needs. Physician Signature Date Printed Name and Credentials Clinical Instructor Signature Printed Name and Credentials
--- NOTE | 2021-02-02 12:42 | PT.OTN ---
Current Diagnoses Pain in right hip (02/02/21) Pain in left knee (02/02/21) Physical Therapy Treatment Note PT-OP-A Visit Information Start: 01/27/21 17:04 Freq: Status: Active Protocol: Document 02/02/21 12:00 DCW (Rec: 02/02/21 12:42 DCW [id number]) Out-Patient Physical Therapy Visit Information Visit Information Visit Type Re-Evaluation Visit Start Time 12:00 Visit Stop Time 12:45 Total Visit Minutes 45 Visit Number 2 Number of [employer] Visits 0 Evaluation Information Evaluation Date 01/27/21 PT-OP-B Current Condition Start: 01/27/21 17:04 Freq: Status: Active Protocol: Document 01/27/21 16:00 DCW (Rec: 01/27/21 17:18 DCW [id number]) Current Condition History of Current Condition Onset Date ~2 months Current Complaints Right hip and thigh pain, right knee pain History of Current Condition Pt is a 56 year old male with a two months history of right hip and left knee pain. Pt reports that he was running on a treadmill at the gym, and felt either a pull or pop in his right hip, along with a sudden pain. Pt reports pain has continued off and on since , mostly when he is driving his car more than 25 minutes, and he begins to experience numbness and pain in his thigh . Pt has had to stop running at the gym, which is throwing off his workout routine. Additionally, around that same timeframe, he was kneeling on the floor to play with his dogs, and he got a sudden intense pain in his left knee at the area of his patellar tendon and up along the lateral side of his patella. Notes he only experiences this pain when he is kneeling. Prior Treatments and Tests Pt has been treated at this clinic for a multitude of various injuries PT-OP-C Subjective Start: 01/27/21 17:04 Freq: Status: Active Protocol: Document 02/02/21 12:00 DCW (Rec: 02/02/21 12:42 DCW [id number]) OP-PT Subjective Patient Comments Patient Comments I wasn't too successful in stretching at home, the bed was just too soft, it made it really difficult. PT-OP-F Manual Assessment Start: 01/27/21 17:04 Freq: Status: Active Protocol: Document 01/27/21 16:00 DCW (Rec: 01/27/21 17:22 DCW [id number]) Manual Assessments Soft Tissue Assessment Soft Tissue Mobility Assessment Severe tone with tenderness to palpation 3/4: Wincing and withdraw R psoas, R ITB Moderate tone with tenderness to palpation 2/4: Pain with wincing R Piriformis, L ITB Joint Mobility Assessment Joint Mobility Assessment Left patella elevated compared to right in sitting PT-OP-K Range of Motion Start: 01/27/21 17:04 Freq: Status: Active Protocol: Document 01/27/21 16:00 DCW (Rec: 01/27/21 17:27 DCW [id number]) Hip Goniometric Range of Motion Hip Right Active Hip ROM WFL Yes Testing Position Supine Left Active Hip ROM WFL Yes Testing Position Supine PT-OP-L Special Tests Start: 01/27/21 17:04 Freq: Status: Active Protocol: Document 01/27/21 16:00 DCW (Rec: 01/27/21 17:27 DCW [id number]) Special Tests Hip Special Tests Niall Test Results positive R psoas tightness Straight Leg Raise Test Results R HS tightness at 35? Scour Test Test Results Negative Posterior Labral Test Test Results Negative Morrison's Compression Test Results Negative Anterior Labral Test Test Results Negative PT-OP-M Strength Start: 01/27/21 17:04 Freq: Status: Active Protocol: Document 01/27/21 16:00 DCW (Rec: 01/27/21 17:27 DCW [id number]) Hip Strength Hip Manual Muscle Testing Right Flexion (L2) 4 Good Abduction 4+ Good+ Adduction 4+ Good+ External Rotation 4+ Good+ Internal Rotation 4+ Good+ Left Flexion (L2) 4 Good Abduction 4+ Good+ Adduction 4+ Good+ External Rotation 4+ Good+ Internal Rotation 4+ Good+ PT-OP-Q Treatments Start: 01/27/21 17:04 Freq: Status: Active Protocol: Document 02/02/21 12:00 DCW (Rec: 02/02/21 12:42 DCW [id number]) Gym Equipment Shuttle Recovery Unilateral Squats Resistance 75# Shuttle Recovery Platform Stable Bilateral Squats Resistance 125# Shuttle Recovery Platform Stable Therapeutic Exercises Supine Exercises 4 Supine Exercise Name Piriformis stretch Side right 3 Supine Exercise Name Hamstring stretch Side right 2 Supine Exercise Name ITB stretch Side right Sidelying Exercises 3 Sidelying Exercise Name Reverse Clamshells Side bilateral Resistance Lv 2 Equipment Used T-band 2 Sidelying Exercise Name Clamshells Side bilateral Resistance Lv 2 Equipment Used T-band 1 Sidelying Exercise Name Psoas stretch Side right Comments Manual Standing Exercises 3 Standing Exercise Name Hip extension, abduction Side bilateral Resistance Lv 3 Equipment Used T-band 2 Standing Exercise Name Psoas - self mob /c plunger Manual Therapy Treatment Soft Tissue Mobilization 2 Body Location ITB Mobilization Type Strumming Intensity/Depth Moderate 1 Body Location R Psoas Mobilization Type Sustained Pressure,Trigger Point Release Intensity/Depth Moderate Body Position Hooklying PT-OP-T Assessment and Plan Start: 01/27/21 17:04 Freq: Status: Active Protocol: Document 02/02/21 12:00 DCW (Rec: 02/02/21 12:42 DCW [id number]) Physical Therapy Assessment Impairments Impairments Functional Activities,Pain, Soft Tissue Mobility,Strength, Tone Goals Two Impairment Pt unable to drive car longer than 25 minutes without R LE pain/numbness [employer] Goal (LTG) Pt to drive for 90 minutes without any increase in right lower extremity symptoms LTG Duration 03/30/21 One Impairment Pt does not have an appropriate home exercise program Short Term Goal (STG) Pt to be independent and compliant with an appropriate HEP STG Duration 02/27/21 Assessment Summary Assessment Pt showed some weakness and fatigue with strengthening exercises, but overall tolerated treatment well. Physical Therapy Plan Frequency and Duration Frequency of Treatment 2x/Week Duration of Treatment Two months Plan of Care Start Date 01/27/21 Plan of Care End Date 03/30/21 Therapeutic Interventions Therapeutic Interventions Home Exercise Program,Joint Mobilizations,Manual Therapy, Patient/Caregiver Education, Self-Care/Home Management,Soft Tissue Mobilization, Therapeutic Exercises Modalities Cold Pack/Ice Massage,Hot Packs Next Visit Focus/Plan Next Note Type Treatment Note Next Visit Plan STM, R psoas/L quad stretching , hip flexor strengthening
--- NOTE | 2021-02-11 09:42 | PT.OTN ---
Current Diagnoses Pain in right hip (02/11/21) Pain in left knee (02/11/21) Physical Therapy Treatment Note PT-OP-A Visit Information Start: 01/27/21 17:04 Freq: Status: Active Protocol: Document 02/11/21 09:00 DCW (Rec: 02/11/21 09:42 DCW [id number]) Out-Patient Physical Therapy Visit Information Visit Information Visit Type Treatment Note Visit Start Time 09:00 Visit Stop Time 09:45 Total Visit Minutes 45 Visit Number 3 Number of DI[employer]OND [employer]OUN[employer] Visits 0 Evaluation Information Evaluation Date 01/27/21 PT-OP-B Current Condition Start: 01/27/21 17:04 Freq: Status: Active Protocol: Document 01/27/21 16:00 DCW (Rec: 01/27/21 17:18 DCW [id number]) Current Condition History of Current Condition Onset Date ~2 months Current Complaints Right hip and thigh pain, right knee pain History of Current Condition Pt is a 56 year old male with a two months history of right hip and left knee pain. Pt reports that he was running on a treadmill at the gym, and felt either a pull or pop in his right hip, along with a sudden pain. Pt reports pain has continued off and on since , mostly when he is driving his car more than 25 minutes, and he begins to experience numbness and pain in his thigh . Pt has had to stop running at the gym, which is throwing off his workout routine. Additionally, around that same timeframe, he was kneeling on the floor to play with his dogs, and he got a sudden intense pain in his left knee at the area of his patellar tendon and up along the lateral side of his patella. Notes he only experiences this pain when he is kneeling. Prior Treatments and Tests Pt has been treated at this clinic for a multitude of various injuries PT-OP-C Subjective Start: 01/27/21 17:04 Freq: Status: Active Protocol: Document 02/11/21 09:00 DCW (Rec: 02/11/21 09:42 DCW [id number]) OP-PT Subjective Patient Comments Patient Comments I had some back pain last week, was really bad. 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 PT-OP-F Manual Assessment Start: 01/27/21 17:04 Freq: Status: Active Protocol: Document 01/27/21 16:00 DCW (Rec: 01/27/21 17:22 DCW [id number]) Manual Assessments Soft Tissue Assessment Soft Tissue Mobility Assessment Severe tone with tenderness to palpation 3/4: Wincing and withdraw R psoas, R ITB Moderate tone with tenderness to palpation 2/4: Pain with wincing R Piriformis, L ITB Joint Mobility Assessment Joint Mobility Assessment Left patella elevated compared to right in sitting PT-OP-K Range of Motion Start: 01/27/21 17:04 Freq: Status: Active Protocol: Document 01/27/21 16:00 DCW (Rec: 01/27/21 17:27 DCW [id number]) Hip Goniometric Range of Motion Hip Right Active Hip ROM WFL Yes Testing Position Supine Left Active Hip ROM WFL Yes Testing Position Supine PT-OP-L Special Tests Start: 01/27/21 17:04 Freq: Status: Active Protocol: Document 01/27/21 16:00 DCW (Rec: 01/27/21 17:27 DCW [id number]) Special Tests Hip Special Tests Niall Test Results positive R psoas tightness Straight Leg Raise Test Results R HS tightness at 35? Scour Test Test Results Negative Posterior Labral Test Test Results Negative Morrison's Compression Test Results Negative Anterior Labral Test Test Results Negative PT-OP-M Strength Start: 01/27/21 17:04 Freq: Status: Active Protocol: Document 01/27/21 16:00 DCW (Rec: 01/27/21 17:27 DCW [id number]) Hip Strength Hip Manual Muscle Testing Right Flexion (L2) 4 Good Abduction 4+ Good+ Adduction 4+ Good+ External Rotation 4+ Good+ Internal Rotation 4+ Good+ Left Flexion (L2) 4 Good Abduction 4+ Good+ Adduction 4+ Good+ External Rotation 4+ Good+ Internal Rotation 4+ Good+ PT-OP-Q Treatments Start: 01/27/21 17:04 Freq: Status: Active Protocol: Document 02/11/21 09:00 DCW (Rec: 02/11/21 09:42 DCW [id number]) Gym Equipment Therapeutic Ball Bridging Exercise Details Bridging /c feet on T-ball Ball Size/Color Red - 55 cm Body Position Supine Therapeutic Exercises Supine Exercises 4 Supine Exercise Name Piriformis stretch Side bilateral 3 Supine Exercise Name Hamstring stretch Side bilateral Comments contract-relax 2 Supine Exercise Name ITB stretch Side bilateral Manual Therapy Treatment Soft Tissue Mobilization 2 Body Location ITB Mobilization Type Strumming Intensity/Depth Moderate 1 Body Location R Psoas Mobilization Type Sustained Pressure,Trigger Point Release Intensity/Depth Moderate Body Position Hooklying T/S paraspinals Body Location T8-12 R>L Mobilization Type Rolling,Strumming Intensity/Depth Moderate Body Position Supine PT-OP-T Assessment and Plan Start: 01/27/21 17:04 Freq: Status: Active Protocol: Document 02/11/21 09:00 DCW (Rec: 02/11/21 09:42 DCW [id number]) Physical Therapy Assessment Impairments Impairments Functional Activities,Pain, Soft Tissue Mobility,Strength, Tone Goals Two Impairment Pt unable to drive car longer than 25 minutes without R LE pain/numbness [employer] Goal (LTG) Pt to drive for 90 minutes without any increase in right lower extremity symptoms LTG Duration 03/30/21 One Impairment Pt does not have an appropriate home exercise program Short Term Goal (STG) Pt to be independent and compliant with an appropriate HEP STG Duration 02/27/21 Assessment Summary Assessment Pt did well today, was showing an increase in paraspinal tone, R>L, but responded well to STM. Physical Therapy Plan Frequency and Duration Frequency of Treatment 2x/Week Duration of Treatment Two months Plan of Care Start Date 01/27/21 Plan of Care End Date 03/30/21 Therapeutic Interventions Therapeutic Interventions Home Exercise Program,Joint Mobilizations,Manual Therapy, Patient/Caregiver Education, Self-Care/Home Management,Soft Tissue Mobilization, Therapeutic Exercises Modalities Cold Pack/Ice Massage,Hot Packs Next Visit Focus/Plan Next Note Type Treatment Note Next Visit Plan STM, R psoas/L quad stretching , hip flexor strengthening
--- NOTE | 2021-02-15 09:06 | PT.OTN ---
Current Diagnoses Pain in right hip (02/15/21) Pain in left knee (02/15/21) Physical Therapy Treatment Note PT-OP-A Visit Information Start: 01/27/21 17:04 Freq: Status: Active Protocol: Document 02/15/21 08:14 [facility] (Rec: 02/15/21 09:06 [facility] [id number]) Out-Patient Physical Therapy Visit Information Visit Information Visit Type Treatment Note Visit Start Time 08:16 Visit Stop Time 09:01 Total Visit Minutes 45 Visit Number 4 Number of LIAISON PLANNER Visits 0 PT-OP-B Current Condition Start: 01/27/21 17:04 Freq: Status: Active Protocol: Document 01/27/21 16:00 DCW (Rec: 01/27/21 17:18 DCW [id number]) Current Condition History of Current Condition Onset Date ~2 months Current Complaints Right hip and thigh pain, right knee pain History of Current Condition Pt is a 56 year old male with a two months history of right hip and left knee pain. Pt reports that he was running on a treadmill at the gym, and felt either a pull or pop in his right hip, along with a sudden pain. Pt reports pain has continued off and on since , mostly when he is driving his car more than 25 minutes, and he begins to experience numbness and pain in his thigh . Pt has had to stop running at the gym, which is throwing off his workout routine. Additionally, around that same timeframe, he was kneeling on the floor to play with his dogs, and he got a sudden intense pain in his left knee at the area of his patellar tendon and up along the lateral side of his patella. Notes he only experiences this pain when he is kneeling. Prior Treatments and Tests Pt has been treated at this clinic for a multitude of various injuries PT-OP-C Subjective Start: 01/27/21 17:04 Freq: Status: Active Protocol: Document 02/15/21 08:14 [facility] (Rec: 02/15/21 09:06 [facility] [id number]) OP-PT Subjective Patient Comments Patient Comments pt reports back still occ spasming. He has been stretching a lot and started some squats at gym PT-OP-F Manual Assessment Start: 01/27/21 17:04 Freq: Status: Active Protocol: Document 01/27/21 16:00 DCW (Rec: 01/27/21 17:22 DCW [id number]) Manual Assessments Soft Tissue Assessment Soft Tissue Mobility Assessment Severe tone with tenderness to palpation 3/4: Wincing and withdraw R psoas, R ITB Moderate tone with tenderness to palpation 2/4: Pain with wincing R Piriformis, L ITB Joint Mobility Assessment Joint Mobility Assessment Left patella elevated compared to right in sitting PT-OP-K Range of Motion Start: 01/27/21 17:04 Freq: Status: Active Protocol: Document 01/27/21 16:00 DCW (Rec: 01/27/21 17:27 DCW [id number]) Hip Goniometric Range of Motion Hip Right Active Hip ROM WFL Yes Testing Position Supine Left Active Hip ROM WFL Yes Testing Position Supine PT-OP-L Special Tests Start: 01/27/21 17:04 Freq: Status: Active Protocol: Document 01/27/21 16:00 DCW (Rec: 01/27/21 17:27 DCW [id number]) Special Tests Hip Special Tests Niall Test Results positive R psoas tightness Straight Leg Raise Test Results R HS tightness at 35? Scour Test Test Results Negative Posterior Labral Test Test Results Negative Morrison's Compression Test Results Negative Anterior Labral Test Test Results Negative PT-OP-M Strength Start: 01/27/21 17:04 Freq: Status: Active Protocol: Document 01/27/21 16:00 DCW (Rec: 01/27/21 17:27 WAW [id number]) Hip Strength Hip Manual Muscle Testing Right Flexion (L2) 4 Good Abduction 4+ Good+ Adduction 4+ Good+ External Rotation 4+ Good+ Internal Rotation 4+ Good+ Left Flexion (L2) 4 Good Abduction 4+ Good+ Adduction 4+ Good+ External Rotation 4+ Good+ Internal Rotation 4+ Good+ PT-OP-Q Treatments Start: 01/27/21 17:04 Freq: Status: Active Protocol: Document 02/15/21 08:14 [facility] (Rec: 02/15/21 09:06 [facility] [id number]) Gym Equipment Therapeutic Ball LTR Ball Size/Color 75 cm Body Position Supine Reps/Duration 10 seated Ball Size/Color 75cm Reps/Duration 15 ea Comments 1. august 2. kicks Bridging Exercise Details Bridging /c feet on T-ball Ball Size/Color Red - 55 cm Body Position Supine Comments [id number] Therapeutic Exercises Standing Exercises 2 Standing Exercise Name hip flexor stretch Side right Reps/Minutes 30 sec 1 Standing Exercise Name squat Side bilateral Equipment Used 20# Reps/Minutes 8 Comments focus on knee and back position Manual Therapy Treatment Soft Tissue Mobilization glutes Body Location R Mobilization Type Sustained Pressure Intensity/Depth Moderate Body Position Prone Comments w/IR/ER 2 Body Location ITB R Mobilization Type Strumming Intensity/Depth Moderate 1 Body Location R iliopsoas Mobilization Type Sustained Pressure,Trigger Point Release Intensity/Depth Moderate Body Position Hooklying Joint Mobilizations hip Joint R Direction inf glide & hip on axis ER FM PT-OP-T Assessment and Plan Start: 01/27/21 17:04 Freq: Status: Active Protocol: Document 02/15/21 08:14 [facility] (Rec: 02/15/21 09:06 [facility] [id number]) Physical Therapy Assessment Goals Two Impairment Pt unable to drive car longer than 25 minutes without R LE pain/numbness Data Lead Goal (LTG) Pt to drive for 90 minutes without any increase in right lower extremity symptoms LTG Duration 03/30/21 One Impairment Pt does not have an appropriate home exercise program Short Term Goal (STG) Pt to be independent and compliant with an appropriate HEP STG Duration 02/27/21 Assessment Summary Assessment Pt did well with squats with min cues. Challenged by ball exercises and cues given fro neutral spine. Pt has significant R hip tightness but improved hip flex and ER ROM after manual treatmetn Physical Therapy Plan Frequency and Duration Frequency of Treatment 2x/Week Duration of Treatment Two months Plan of Care Start Date 01/27/21 Plan of Care End Date 03/30/21 Next Visit Focus/Plan Next Note Type Treatment Note Next Visit Plan STM, R psoas/L quad stretching , hip flexor strengthening & core stability
--- NOTE | 2021-02-22 09:02 | PT.OTN ---
Current Diagnoses Pain in right hip (02/22/21) Pain in left knee (02/22/21) Physical Therapy Treatment Note PT-OP-A Visit Information Start: 01/27/21 17:04 Freq: Status: Active Protocol: Document 02/22/21 08:02 [facility] (Rec: 02/22/21 09:01 [facility] [id number]) Out-Patient Physical Therapy Visit Information Visit Information Visit Type Treatment Note Visit Start Time 08:15 Visit Stop Time 08:55 Total Visit Minutes 40 Visit Number 5 Number of BRINELL TESTER Visits 0 PT-OP-B Current Condition Start: 01/27/21 17:04 Freq: Status: Active Protocol: Document 01/27/21 16:00 DCW (Rec: 01/27/21 17:18 DCW [id number]) Current Condition History of Current Condition Onset Date ~2 months Current Complaints Right hip and thigh pain, right knee pain History of Current Condition Pt is a 56 year old male with a two months history of right hip and left knee pain. Pt reports that he was running on a treadmill at the gym, and felt either a pull or pop in his right hip, along with a sudden pain. Pt reports pain has continued off and on since , mostly when he is driving his car more than 25 minutes, and he begins to experience numbness and pain in his thigh . Pt has had to stop running at the gym, which is throwing off his workout routine. Additionally, around that same timeframe, he was kneeling on the floor to play with his dogs, and he got a sudden intense pain in his left knee at the area of his patellar tendon and up along the lateral side of his patella. Notes he only experiences this pain when he is kneeling. Prior Treatments and Tests Pt has been treated at this clinic for a multitude of various injuries PT-OP-C Subjective Start: 01/27/21 17:04 Freq: Status: Active Protocol: Document 02/22/21 08:02 [facility] (Rec: 02/22/21 09:01 [facility] [id number]) OP-PT Subjective Patient Comments Patient Comments Pt reports R hip was bothering him when stuck in the car for a while. Notes pain is up and down. Pt went golfing and by a couple holes , he had significant shocks into his back when picking up the ball. Golfing felt fine. He ended up stopping afte 9 holes. He only had 1 swing where it irritated his back> he had to go to his knee a couple times d/t pain. Went to ER Sunday AM d/t pain. Xrays were clear. Sees his PA soon. PT-OP-F Manual Assessment Start: 01/27/21 17:04 Freq: Status: Active Protocol: Document 01/27/21 16:00 DCW (Rec: 01/27/21 17:22 DCW [id number]) Manual Assessments Soft Tissue Assessment Soft Tissue Mobility Assessment Severe tone with tenderness to palpation 3/4: Wincing and withdraw R psoas, R ITB Moderate tone with tenderness to palpation 2/4: Pain with wincing R Piriformis, L ITB Joint Mobility Assessment Joint Mobility Assessment Left patella elevated compared to right in sitting PT-OP-K Range of Motion Start: 01/27/21 17:04 Freq: Status: Active Protocol: Document 01/27/21 16:00 DCW (Rec: 01/27/21 17:27 DCW [id number]) Hip Goniometric Range of Motion Hip Right Active Hip ROM WFL Yes Testing Position Supine Left Active Hip ROM WFL Yes Testing Position Supine PT-OP-L Special Tests Start: 01/27/21 17:04 Freq: Status: Active Protocol: Document 01/27/21 16:00 DCW (Rec: 01/27/21 17:27 DCW [id number]) Special Tests Hip Special Tests Niall Test Results positive R psoas tightness Straight Leg Raise Test Results R HS tightness at 35? Scour Test Test Results Negative Posterior Labral Test Test Results Negative Morrison's Compression Test Results Negative Anterior Labral Test Test Results Negative PT-OP-M Strength Start: 01/27/21 17:04 Freq: Status: Active Protocol: Document 01/27/21 16:00 DCW (Rec: 01/27/21 17:27 DCW [id number]) Hip Strength Hip Manual Muscle Testing Right Flexion (L2) 4 Good Abduction 4+ Good+ Adduction 4+ Good+ External Rotation 4+ Good+ Internal Rotation 4+ Good+ Left Flexion (L2) 4 Good Abduction 4+ Good+ Adduction 4+ Good+ External Rotation 4+ Good+ Internal Rotation 4+ Good+ PT-OP-Q Treatments Start: 01/27/21 17:04 Freq: Status: Active Protocol: Document 02/22/21 08:02 [facility] (Rec: 02/22/21 09:01 [facility] [id number]) Gym Equipment Therapeutic Ball seated Ball Size/Color 75cm Reps/Duration 10 ea Comments pelvic circles Therapeutic Exercises Other Exercises oli pose Reps/Minutes 1 min quadruped Other Exercise Name 1.cat/camel 2. tail wags Side bilateral Reps/Minutes 10 Manual Therapy Treatment Soft Tissue Mobilization 1 Body Location R iliiacas & psoas Mobilization Type Sustained Pressure,Trigger Point Release Intensity/Depth Moderate Comments hooklying & S/L scar tissue Body Location R abdomenal scar by hip flexors Mobilization Type Myofascial Release,Sustained Pressure Comments s/l w/ant elevation/post dep PT-OP-T Assessment and Plan Start: 01/27/21 17:04 Freq: Status: Active Protocol: Document 02/22/21 08:02 [facility] (Rec: 02/22/21 09:01 [facility] [id number]) Physical Therapy Assessment Goals Two Impairment Pt unable to drive car longer than 25 minutes without R LE pain/numbness Longterm Goal (LTG) Pt to drive for 90 minutes without any increase in right lower extremity symptoms LTG Duration 03/30/21 One Impairment Pt does not have an appropriate home exercise program Short Term Goal (STG) Pt to be independent and compliant with an appropriate HEP STG Duration 02/27/21 Assessment Summary Assessment Pt did well with gentle exercises for ROM and start of core activiation. Pt encouraged to do these at home and to spend time in positions of comfort. He has significant tightness to R appy scar by R hip flexor which may contribute to both hip flexor and back pain. Physical Therapy Plan Frequency and Duration Frequency of Treatment 2x/Week Duration of Treatment Two months Plan of Care Start Date 01/27/21 Plan of Care End Date 03/30/21 Next Visit Focus/Plan Next Note Type Treatment Note Next Visit Plan STM, R psoas/L quad stretching , hip flexor strengthening & core stability
--- NOTE | 2021-03-01 12:45 | PT.OTN ---
Current Diagnoses Pain in right hip (03/01/21) Pain in left knee (03/01/21) Physical Therapy Treatment Note PT-OP-A Visit Information Start: 01/27/21 17:04 Freq: Status: Active Protocol: Document 03/01/21 12:00 DCW (Rec: 03/01/21 12:45 DCW [id number]) Out-Patient Physical Therapy Visit Information Visit Information Visit Start Time 12:00 Visit Stop Time 12:45 Total Visit Minutes 45 Visit Number 6 Number of CLAY MIXER Visits 0 Evaluation Information Evaluation Date 01/27/21 PT-OP-B Current Condition Start: 01/27/21 17:04 Freq: Status: Active Protocol: Document 01/27/21 16:00 DCW (Rec: 01/27/21 17:18 DCW [id number]) Current Condition History of Current Condition Onset Date ~2 months Current Complaints Right hip and thigh pain, right knee pain History of Current Condition Pt is a 56 year old male with a two months history of right hip and left knee pain. Pt reports that he was running on a treadmill at the gym, and felt either a pull or pop in his right hip, along with a sudden pain. Pt reports pain has continued off and on since , mostly when he is driving his car more than 25 minutes, and he begins to experience numbness and pain in his thigh . Pt has had to stop running at the gym, which is throwing off his workout routine. Additionally, around that same timeframe, he was kneeling on the floor to play with his dogs, and he got a sudden intense pain in his left knee at the area of his patellar tendon and up along the lateral side of his patella. Notes he only experiences this pain when he is kneeling. Prior Treatments and Tests Pt has been treated at this clinic for a multitude of various injuries PT-OP-C Subjective Start: 01/27/21 17:04 Freq: Status: Active Protocol: Document 03/01/21 12:00 DCW (Rec: 03/01/21 12:45 DCW [id number]) OP-PT Subjective Patient Comments Patient Comments Last week I was in pretty rough shape. Was out playing golf, had to stop after nine holes, was in a lot of pain, and the next day he had to go to the ER because his back was spasming so much. PT-OP-F Manual Assessment Start: 01/27/21 17:04 Freq: Status: Active Protocol: Document 01/27/21 16:00 DCW (Rec: 01/27/21 17:22 DCW [id number]) Manual Assessments Soft Tissue Assessment Soft Tissue Mobility Assessment Severe tone with tenderness to palpation 3/4: Wincing and withdraw R psoas, R ITB Moderate tone with tenderness to palpation 2/4: Pain with wincing R Piriformis, L ITB Joint Mobility Assessment Joint Mobility Assessment Left patella elevated compared to right in sitting PT-OP-K Range of Motion Start: 01/27/21 17:04 Freq: Status: Active Protocol: Document 01/27/21 16:00 DCW (Rec: 01/27/21 17:27 DCW [id number]) Hip Goniometric Range of Motion Hip Right Active Hip ROM WFL Yes Testing Position Supine Left Active Hip ROM WFL Yes Testing Position Supine PT-OP-L Special Tests Start: 01/27/21 17:04 Freq: Status: Active Protocol: Document 01/27/21 16:00 DCW (Rec: 01/27/21 17:27 DCW [id number]) Special Tests Hip Special Tests Niall Test Results positive R psoas tightness Straight Leg Raise Test Results R HS tightness at 35? Scour Test Test Results Negative Posterior Labral Test Test Results Negative Morrison's Compression Test Results Negative Anterior Labral Test Test Results Negative PT-OP-M Strength Start: 01/27/21 17:04 Freq: Status: Active Protocol: Document 01/27/21 16:00 DCW (Rec: 01/27/21 17:27 DCW [id number]) Hip Strength Hip Manual Muscle Testing Right Flexion (L2) 4 Good Abduction 4+ Good+ Adduction 4+ Good+ External Rotation 4+ Good+ Internal Rotation 4+ Good+ Left Flexion (L2) 4 Good Abduction 4+ Good+ Adduction 4+ Good+ External Rotation 4+ Good+ Internal Rotation 4+ Good+ PT-OP-Q Treatments Start: 01/27/21 17:04 Freq: Status: Active Protocol: Document 03/01/21 12:00 DCW (Rec: 03/01/21 12:45 DCW [id number]) Gym Equipment Therapeutic Ball LTR Ball Size/Color 55 cm Body Position Supine Reps/Duration 10 Bridging Exercise Details Bridging /c feet on T-ball Ball Size/Color Red - 55 cm Body Position Supine Comments [id number] Manual Therapy Treatment Soft Tissue Mobilization glutes Body Location R Mobilization Type Sustained Pressure Intensity/Depth Moderate Body Position Prone Comments w/IR/ER 2 Body Location ITB R Mobilization Type Strumming Intensity/Depth Moderate 1 Body Location R iliopsoas Mobilization Type Sustained Pressure,Trigger Point Release Intensity/Depth Moderate Body Position Hooklying Joint Mobilizations hip Joint R Direction inf glide & hip on axis ER FM PT-OP-T Assessment and Plan Start: 01/27/21 17:04 Freq: Status: Active Protocol: Document 03/01/21 12:00 DCW (Rec: 03/01/21 12:45 DCW [id number]) Physical Therapy Assessment Goals Two Impairment Pt unable to drive car longer than 25 minutes without R LE pain/numbness Penetration Tester Goal (LTG) Pt to drive for 90 minutes without any increase in right lower extremity symptoms LTG Duration 03/30/21 One Impairment Pt does not have an appropriate home exercise program Short Term Goal (STG) Pt to be independent and compliant with an appropriate HEP STG Duration 02/27/21 Assessment Summary Assessment Pt tolerated treatment well today, working on stretching more at home, will start acupuncture tomorrow to help with his ongoing muscle spasm. Physical Therapy Plan Frequency and Duration Frequency of Treatment 2x/Week Duration of Treatment Two months Plan of Care Start Date 01/27/21 Plan of Care End Date 03/30/21 Next Visit Focus/Plan Next Note Type Treatment Note Next Visit Plan STM, R psoas/L quad stretching , hip flexor strengthening & core stability
--- NOTE | 2021-03-03 14:28 | PT.OTN ---
Current Diagnoses Pain in right hip (03/03/21) Pain in left knee (03/03/21) Physical Therapy Treatment Note PT-OP-A Visit Information Start: 01/27/21 17:04 Freq: Status: Active Protocol: Document 03/03/21 13:45 DCW (Rec: 03/03/21 14:27 DCW [id number]) Out-Patient Physical Therapy Visit Information Visit Information Visit Type Treatment Note Visit Start Time 13:45 Visit Stop Time 14:30 Total Visit Minutes 45 Visit Number 7 Number of TALENT ACQUISITION CONSULTANT Visits 0 Evaluation Information Evaluation Date 01/27/21 PT-OP-B Current Condition Start: 01/27/21 17:04 Freq: Status: Active Protocol: Document 01/27/21 16:00 DCW (Rec: 01/27/21 17:18 DCW [id number]) Current Condition History of Current Condition Onset Date ~2 months Current Complaints Right hip and thigh pain, right knee pain History of Current Condition Pt is a 56 year old male with a two months history of right hip and left knee pain. Pt reports that he was running on a treadmill at the gym, and felt either a pull or pop in his right hip, along with a sudden pain. Pt reports pain has continued off and on since , mostly when he is driving his car more than 25 minutes, and he begins to experience numbness and pain in his thigh . Pt has had to stop running at the gym, which is throwing off his workout routine. Additionally, around that same timeframe, he was kneeling on the floor to play with his dogs, and he got a sudden intense pain in his left knee at the area of his patellar tendon and up along the lateral side of his patella. Notes he only experiences this pain when he is kneeling. Prior Treatments and Tests Pt has been treated at this clinic for a multitude of various injuries PT-OP-C Subjective Start: 01/27/21 17:04 Freq: Status: Active Protocol: Document 03/03/21 13:45 DCW (Rec: 03/03/21 14:27 DCW [id number]) OP-PT Subjective Patient Comments Patient Comments Pt notes he was pretty sore this morning after a lot of golfing yesterday. PT-OP-F Manual Assessment Start: 01/27/21 17:04 Freq: Status: Active Protocol: Document 01/27/21 16:00 DCW (Rec: 01/27/21 17:22 DCW [id number]) Manual Assessments Soft Tissue Assessment Soft Tissue Mobility Assessment Severe tone with tenderness to palpation 3/4: Wincing and withdraw R psoas, R ITB Moderate tone with tenderness to palpation 2/4: Pain with wincing R Piriformis, L ITB Joint Mobility Assessment Joint Mobility Assessment Left patella elevated compared to right in sitting PT-OP-K Range of Motion Start: 01/27/21 17:04 Freq: Status: Active Protocol: Document 01/27/21 16:00 DCW (Rec: 01/27/21 17:27 DCW [id number]) Hip Goniometric Range of Motion Hip Right Active Hip ROM WFL Yes Testing Position Supine Left Active Hip ROM WFL Yes Testing Position Supine PT-OP-L Special Tests Start: 01/27/21 17:04 Freq: Status: Active Protocol: Document 01/27/21 16:00 DCW (Rec: 01/27/21 17:27 DCW [id number]) Special Tests Hip Special Tests Niall Test Results positive R psoas tightness Straight Leg Raise Test Results R HS tightness at 35? Scour Test Test Results Negative Posterior Labral Test Test Results Negative Morrison's Compression Test Results Negative Anterior Labral Test Test Results Negative PT-OP-M Strength Start: 01/27/21 17:04 Freq: Status: Active Protocol: Document 01/27/21 16:00 DCW (Rec: 01/27/21 17:27 DCW [id number]) Hip Strength Hip Manual Muscle Testing Right Flexion (L2) 4 Good Abduction 4+ Good+ Adduction 4+ Good+ External Rotation 4+ Good+ Internal Rotation 4+ Good+ Left Flexion (L2) 4 Good Abduction 4+ Good+ Adduction 4+ Good+ External Rotation 4+ Good+ Internal Rotation 4+ Good+ PT-OP-Q Treatments Start: 01/27/21 17:04 Freq: Status: Active Protocol: Document 03/03/21 13:45 DCW (Rec: 03/03/21 14:27 DCW [id number]) Gym Equipment Therapeutic Ball LTR Ball Size/Color 55 cm Body Position Supine Reps/Duration 10 seated Ball Size/Color 75cm Reps/Duration 10 ea Comments pelvic circles Bridging Exercise Details Bridging /c feet on T-ball Ball Size/Color Red - 55 cm Body Position Supine Comments [id number] Therapeutic Exercises Supine Exercises 4 Supine Exercise Name Piriformis stretch Side bilateral 3 Supine Exercise Name Hamstring stretch Side bilateral Comments contract-relax 2 Supine Exercise Name ITB stretch Side bilateral Manual Therapy Treatment Soft Tissue Mobilization glutes Body Location L Mobilization Type Sustained Pressure Intensity/Depth Moderate Body Position Prone Comments w/IR/ER 2 Body Location ITB L Mobilization Type Strumming Intensity/Depth Moderate 1 Body Location L iliopsoas Mobilization Type Sustained Pressure,Trigger Point Release Intensity/Depth Moderate Body Position Hooklying T/S paraspinals Body Location T8-12 R>L Mobilization Type Rolling,Strumming Intensity/Depth Moderate Body Position Supine Joint Mobilizations hip Joint R Direction inf glide & hip on axis ER FM PT-OP-T Assessment and Plan Start: 01/27/21 17:04 Freq: Status: Active Protocol: Document 03/03/21 13:45 DCW (Rec: 03/03/21 14:27 DCW [id number]) Physical Therapy Assessment Goals Two Impairment Pt unable to drive car longer than 25 minutes without R LE pain/numbness Gear Milling Machine Set Up Operator Goal (LTG) Pt to drive for 90 minutes without any increase in right lower extremity symptoms LTG Duration 03/30/21 One Impairment Pt does not have an appropriate home exercise program Short Term Goal (STG) Pt to be independent and compliant with an appropriate HEP STG Duration 02/27/21 Assessment Summary Assessment Pt having some increased tone along thoracic spine, tolerated STM well. Physical Therapy Plan Frequency and Duration Frequency of Treatment 2x/Week Duration of Treatment Two months Plan of Care Start Date 01/27/21 Plan of Care End Date 03/30/21 Next Visit Focus/Plan Next Note Type Treatment Note Next Visit Plan STM, R psoas/L quad stretching , hip flexor strengthening & core stability
--- NOTE | 2021-03-08 16:47 | PT.OTN ---
Current Diagnoses Pain in right hip (03/08/21) Pain in left knee (03/08/21) Physical Therapy Treatment Note PT-OP-A Visit Information Start: 01/27/21 17:04 Freq: Status: Active Protocol: Document 03/08/21 16:03 DCW (Rec: 03/08/21 16:46 DCW [id number]) Out-Patient Physical Therapy Visit Information Visit Information Visit Type Treatment Note Visit Start Time 16:03 Visit Stop Time 16:45 Total Visit Minutes 42 Visit Number 8 Number of PEDIATRIC PATHOLOGIST Visits 0 Evaluation Information Evaluation Date 01/27/21 PT-OP-B Current Condition Start: 01/27/21 17:04 Freq: Status: Active Protocol: Document 01/27/21 16:00 DCW (Rec: 01/27/21 17:18 DCW [id number]) Current Condition History of Current Condition Onset Date ~2 months Current Complaints Right hip and thigh pain, right knee pain History of Current Condition Pt is a 56 year old male with a two months history of right hip and left knee pain. Pt reports that he was running on a treadmill at the gym, and felt either a pull or pop in his right hip, along with a sudden pain. Pt reports pain has continued off and on since , mostly when he is driving his car more than 25 minutes, and he begins to experience numbness and pain in his thigh . Pt has had to stop running at the gym, which is throwing off his workout routine. Additionally, around that same timeframe, he was kneeling on the floor to play with his dogs, and he got a sudden intense pain in his left knee at the area of his patellar tendon and up along the lateral side of his patella. Notes he only experiences this pain when he is kneeling. Prior Treatments and Tests Pt has been treated at this clinic for a multitude of various injuries PT-OP-C Subjective Start: 01/27/21 17:04 Freq: Status: Active Protocol: Document 03/08/21 16:03 DCW (Rec: 03/08/21 16:46 DCW [id number]) OP-PT Subjective Patient Comments Patient Comments A little sore after hitting some golf balls earlier, but not too bad. PT-OP-F Manual Assessment Start: 01/27/21 17:04 Freq: Status: Active Protocol: Document 01/27/21 16:00 DCW (Rec: 01/27/21 17:22 DCW [id number]) Manual Assessments Soft Tissue Assessment Soft Tissue Mobility Assessment Severe tone with tenderness to palpation 3/4: Wincing and withdraw R psoas, R ITB Moderate tone with tenderness to palpation 2/4: Pain with wincing R Piriformis, L ITB Joint Mobility Assessment Joint Mobility Assessment Left patella elevated compared to right in sitting PT-OP-K Range of Motion Start: 01/27/21 17:04 Freq: Status: Active Protocol: Document 01/27/21 16:00 DCW (Rec: 01/27/21 17:27 DCW [id number]) Hip Goniometric Range of Motion Hip Right Active Hip ROM WFL Yes Testing Position Supine Left Active Hip ROM WFL Yes Testing Position Supine PT-OP-L Special Tests Start: 01/27/21 17:04 Freq: Status: Active Protocol: Document 01/27/21 16:00 DCW (Rec: 01/27/21 17:27 DCW [id number]) Special Tests Hip Special Tests Niall Test Results positive R psoas tightness Straight Leg Raise Test Results R HS tightness at 35? Scour Test Test Results Negative Posterior Labral Test Test Results Negative Morrison's Compression Test Results Negative Anterior Labral Test Test Results Negative PT-OP-M Strength Start: 01/27/21 17:04 Freq: Status: Active Protocol: Document 01/27/21 16:00 DCW (Rec: 01/27/21 17:27 DCW [id number]) Hip Strength Hip Manual Muscle Testing Right Flexion (L2) 4 Good Abduction 4+ Good+ Adduction 4+ Good+ External Rotation 4+ Good+ Internal Rotation 4+ Good+ Left Flexion (L2) 4 Good Abduction 4+ Good+ Adduction 4+ Good+ External Rotation 4+ Good+ Internal Rotation 4+ Good+ PT-OP-Q Treatments Start: 01/27/21 17:04 Freq: Status: Active Protocol: Document 03/08/21 16:03 DCW (Rec: 03/08/21 16:46 DCW [id number]) Gym Equipment Therapeutic Ball LTR Ball Size/Color 55 cm Body Position Supine Reps/Duration 10 Therapeutic Exercises Supine Exercises 4 Supine Exercise Name Piriformis stretch Side bilateral 3 Supine Exercise Name Hamstring stretch Side bilateral Comments contract-relax 2 Supine Exercise Name ITB stretch Side bilateral Manual Therapy Treatment Soft Tissue Mobilization glutes Body Location L Mobilization Type Sustained Pressure Intensity/Depth Moderate Body Position Prone Comments w/IR/ER 2 Body Location ITB L Mobilization Type Strumming Intensity/Depth Moderate 1 Body Location L iliopsoas Mobilization Type Sustained Pressure,Trigger Point Release Intensity/Depth Moderate Body Position Hooklying T/S paraspinals Body Location T8-12 R>L Mobilization Type Rolling,Strumming Intensity/Depth Moderate Body Position Supine Joint Mobilizations hip Joint R Direction inf glide & hip on axis ER FM PT-OP-T Assessment and Plan Start: 01/27/21 17:04 Freq: Status: Active Protocol: Document 03/08/21 16:03 DCW (Rec: 03/08/21 16:46 DCW [id number]) Physical Therapy Assessment Goals Two Impairment Pt unable to drive car longer than 25 minutes without R LE pain/numbness Conference Services Manager Goal (LTG) Pt to drive for 90 minutes without any increase in right lower extremity symptoms LTG Duration 03/30/21 One Impairment Pt does not have an appropriate home exercise program Short Term Goal (STG) Pt to be independent and compliant with an appropriate HEP STG Duration 02/27/21 Assessment Summary Assessment Pt thoracic vertebrae continue to be fairly hypomobile, but lumbar spine improving since evaluation. Physical Therapy Plan Frequency and Duration Frequency of Treatment 2x/Week Duration of Treatment Two months Plan of Care Start Date 01/27/21 Plan of Care End Date 03/30/21 Next Visit Focus/Plan Next Note Type Treatment Note Next Visit Plan STM, R psoas/L quad stretching , hip flexor strengthening & core stability
--- NOTE | 2021-03-10 11:59 | PT.OTN ---
Current Diagnoses Pain in right hip (03/10/21) Pain in left knee (03/10/21) Physical Therapy Treatment Note PT-OP-A Visit Information Start: 01/27/21 17:04 Freq: Status: Active Protocol: Document 03/10/21 11:15 DCW (Rec: 03/10/21 11:59 DCW [id number]) Out-Patient Physical Therapy Visit Information Visit Information Visit Type Treatment Note Visit Start Time 11:15 Visit Stop Time 12:00 Total Visit Minutes 45 Visit Number 9 Number of EXPRESSIVE ART THERAPIST Visits 0 Evaluation Information Evaluation Date 01/27/21 PT-OP-B Current Condition Start: 01/27/21 17:04 Freq: Status: Active Protocol: Document 01/27/21 16:00 DCW (Rec: 01/27/21 17:18 DCW [id number]) Current Condition History of Current Condition Onset Date ~2 months Current Complaints Right hip and thigh pain, right knee pain History of Current Condition Pt is a 56 year old male with a two months history of right hip and left knee pain. Pt reports that he was running on a treadmill at the gym, and felt either a pull or pop in his right hip, along with a sudden pain. Pt reports pain has continued off and on since , mostly when he is driving his car more than 25 minutes, and he begins to experience numbness and pain in his thigh . Pt has had to stop running at the gym, which is throwing off his workout routine. Additionally, around that same timeframe, he was kneeling on the floor to play with his dogs, and he got a sudden intense pain in his left knee at the area of his patellar tendon and up along the lateral side of his patella. Notes he only experiences this pain when he is kneeling. Prior Treatments and Tests Pt has been treated at this clinic for a multitude of various injuries PT-OP-C Subjective Start: 01/27/21 17:04 Freq: Status: Active Protocol: Document 03/10/21 11:15 DCW (Rec: 03/10/21 11:59 DCW [id number]) OP-PT Subjective Patient Comments Patient Comments Pt notes he is doing pretty well today. PT-OP-F Manual Assessment Start: 01/27/21 17:04 Freq: Status: Active Protocol: Document 01/27/21 16:00 DCW (Rec: 01/27/21 17:22 DCW [id number]) Manual Assessments Soft Tissue Assessment Soft Tissue Mobility Assessment Severe tone with tenderness to palpation 3/4: Wincing and withdraw R psoas, R ITB Moderate tone with tenderness to palpation 2/4: Pain with wincing R Piriformis, L ITB Joint Mobility Assessment Joint Mobility Assessment Left patella elevated compared to right in sitting PT-OP-K Range of Motion Start: 01/27/21 17:04 Freq: Status: Active Protocol: Document 01/27/21 16:00 DCW (Rec: 01/27/21 17:27 DCW [id number]) Hip Goniometric Range of Motion Hip Right Active Hip ROM WFL Yes Testing Position Supine Left Active Hip ROM WFL Yes Testing Position Supine PT-OP-L Special Tests Start: 01/27/21 17:04 Freq: Status: Active Protocol: Document 01/27/21 16:00 DCW (Rec: 01/27/21 17:27 DCW [id number]) Special Tests Hip Special Tests Niall Test Results positive R psoas tightness Straight Leg Raise Test Results R HS tightness at 35? Scour Test Test Results Negative Posterior Labral Test Test Results Negative Morrison's Compression Test Results Negative Anterior Labral Test Test Results Negative PT-OP-M Strength Start: 01/27/21 17:04 Freq: Status: Active Protocol: Document 01/27/21 16:00 DCW (Rec: 01/27/21 17:27 DCW [id number]) Hip Strength Hip Manual Muscle Testing Right Flexion (L2) 4 Good Abduction 4+ Good+ Adduction 4+ Good+ External Rotation 4+ Good+ Internal Rotation 4+ Good+ Left Flexion (L2) 4 Good Abduction 4+ Good+ Adduction 4+ Good+ External Rotation 4+ Good+ Internal Rotation 4+ Good+ PT-OP-Q Treatments Start: 01/27/21 17:04 Freq: Status: Active Protocol: Document 03/10/21 11:15 DCW (Rec: 03/10/21 11:59 DCW [id number]) Gym Equipment Cable Column (Body Solid) Pallof Press Resistance 30# Therapeutic Ball LTR Ball Size/Color 55 cm Body Position Supine Reps/Duration 10 seated Ball Size/Color 75cm Reps/Duration 10 ea Comments pelvic circles, tilts Bridging Exercise Details Bridging /c feet on T-ball Ball Size/Color Red - 55 cm Body Position Supine Comments Bridging, then added HS curls Therapeutic Exercises Standing Exercises 1 Standing Exercise Name Hip Hiking Side bilateral Manual Therapy Treatment Soft Tissue Mobilization glutes Body Location L Mobilization Type Sustained Pressure Intensity/Depth Moderate Body Position Prone Comments w/IR/ER 2 Body Location ITB L Mobilization Type Strumming Intensity/Depth Moderate 1 Body Location L iliopsoas Mobilization Type Sustained Pressure,Trigger Point Release Intensity/Depth Moderate Body Position Hooklying T/S paraspinals Body Location T8-12 R>L Mobilization Type Rolling,Strumming Intensity/Depth Moderate Body Position Supine Joint Mobilizations hip Joint R Direction inf glide & hip on axis ER FM PT-OP-T Assessment and Plan Start: 01/27/21 17:04 Freq: Status: Active Protocol: Document 03/10/21 11:15 DCW (Rec: 03/10/21 11:59 DCW [id number]) Physical Therapy Assessment Goals Two Impairment Pt unable to drive car longer than 25 minutes without R LE pain/numbness Fdc Goal (LTG) Pt to drive for 90 minutes without any increase in right lower extremity symptoms LTG Duration 03/30/21 One Impairment Pt does not have an appropriate home exercise program Short Term Goal (STG) Pt to be independent and compliant with an appropriate HEP STG Duration 02/27/21 Assessment Summary Assessment Pt showing improved hip and lumbar spine mobility, although today had some right lat tightness. Physical Therapy Plan Frequency and Duration Frequency of Treatment 2x/Week Duration of Treatment Two months Plan of Care Start Date 01/27/21 Plan of Care End Date 03/30/21 Next Visit Focus/Plan Next Note Type Treatment Note Next Visit Plan STM, R psoas/L quad stretching , hip flexor strengthening & core stability
--- NOTE | 2021-03-17 11:14 | PT.OTN ---
Current Diagnoses Pain in right hip (03/17/21) Pain in left knee (03/17/21) Physical Therapy Treatment Note PT-OP-A Visit Information Start: 01/27/21 17:04 Freq: Status: Active Protocol: Document 03/17/21 10:30 DCW (Rec: 03/17/21 11:11 DCW [id number]) Out-Patient Physical Therapy Visit Information Visit Information Visit Type Treatment Note Visit Start Time 10:30 Visit Stop Time 11:15 Total Visit Minutes 45 Visit Number 10 Number of BLINDMAKER Visits 0 Evaluation Information Evaluation Date 01/27/21 PT-OP-B Current Condition Start: 01/27/21 17:04 Freq: Status: Active Protocol: Document 01/27/21 16:00 DCW (Rec: 01/27/21 17:18 DCW [id number]) Current Condition History of Current Condition Onset Date ~2 months Current Complaints Right hip and thigh pain, right knee pain History of Current Condition Pt is a 56 year old male with a two months history of right hip and left knee pain. Pt reports that he was running on a treadmill at the gym, and felt either a pull or pop in his right hip, along with a sudden pain. Pt reports pain has continued off and on since , mostly when he is driving his car more than 25 minutes, and he begins to experience numbness and pain in his thigh . Pt has had to stop running at the gym, which is throwing off his workout routine. Additionally, around that same timeframe, he was kneeling on the floor to play with his dogs, and he got a sudden intense pain in his left knee at the area of his patellar tendon and up along the lateral side of his patella. Notes he only experiences this pain when he is kneeling. Prior Treatments and Tests Pt has been treated at this clinic for a multitude of various injuries PT-OP-C Subjective Start: 01/27/21 17:04 Freq: Status: Active Protocol: Document 03/17/21 10:30 DCW (Rec: 03/17/21 11:14 DCW [id number]) OP-PT Subjective Patient Comments Patient Comments Pt returned yesterday from a trip to [place] looking for a new house. PT-OP-F Manual Assessment Start: 01/27/21 17:04 Freq: Status: Active Protocol: Document 01/27/21 16:00 DCW (Rec: 01/27/21 17:22 DCW [id number]) Manual Assessments Soft Tissue Assessment Soft Tissue Mobility Assessment Severe tone with tenderness to palpation 3/4: Wincing and withdraw R psoas, R ITB Moderate tone with tenderness to palpation 2/4: Pain with wincing R Piriformis, L ITB Joint Mobility Assessment Joint Mobility Assessment Left patella elevated compared to right in sitting PT-OP-K Range of Motion Start: 01/27/21 17:04 Freq: Status: Active Protocol: Document 01/27/21 16:00 DCW (Rec: 01/27/21 17:27 DCW [id number]) Hip Goniometric Range of Motion Hip Right Active Hip ROM WFL Yes Testing Position Supine Left Active Hip ROM WFL Yes Testing Position Supine PT-OP-L Special Tests Start: 01/27/21 17:04 Freq: Status: Active Protocol: Document 01/27/21 16:00 DCW (Rec: 01/27/21 17:27 DCW [id number]) Special Tests Hip Special Tests Niall Test Results positive R psoas tightness Straight Leg Raise Test Results R HS tightness at 35? Scour Test Test Results Negative Posterior Labral Test Test Results Negative Morrison's Compression Test Results Negative Anterior Labral Test Test Results Negative PT-OP-M Strength Start: 01/27/21 17:04 Freq: Status: Active Protocol: Document 01/27/21 16:00 DCW (Rec: 01/27/21 17:27 DCW [id number]) Hip Strength Hip Manual Muscle Testing Right Flexion (L2) 4 Good Abduction 4+ Good+ Adduction 4+ Good+ External Rotation 4+ Good+ Internal Rotation 4+ Good+ Left Flexion (L2) 4 Good Abduction 4+ Good+ Adduction 4+ Good+ External Rotation 4+ Good+ Internal Rotation 4+ Good+ PT-OP-Q Treatments Start: 01/27/21 17:04 Freq: Status: Active Protocol: Document 03/17/21 10:30 DCW (Rec: 03/17/21 11:11 DCW [id number]) Gym Equipment Therapeutic Ball LTR Ball Size/Color 55 cm Body Position Supine Reps/Duration 10 seated Ball Size/Color 75cm Reps/Duration 10 ea Comments pelvic circles, tilts Bridging Exercise Details Bridging /c feet on T-ball Ball Size/Color Red - 55 cm Body Position Supine Comments Bridging, then added HS curls Therapeutic Exercises Supine Exercises 4 Supine Exercise Name Piriformis stretch Side bilateral 3 Supine Exercise Name Hamstring stretch Side bilateral Comments contract-relax 2 Supine Exercise Name ITB stretch Side bilateral Manual Therapy Treatment Soft Tissue Mobilization glutes Body Location L Mobilization Type Sustained Pressure Intensity/Depth Moderate Body Position Prone Comments w/IR/ER 2 Body Location ITB L Mobilization Type Strumming Intensity/Depth Moderate 1 Body Location L iliopsoas Mobilization Type Sustained Pressure,Trigger Point Release Intensity/Depth Moderate Body Position Hooklying T/S paraspinals Body Location T8-12 R>L Mobilization Type Rolling,Strumming Intensity/Depth Moderate Body Position Sidelying Joint Mobilizations hip Joint R Direction inf glide & hip on axis ER FM PT-OP-T Assessment and Plan Start: 01/27/21 17:04 Freq: Status: Active Protocol: Document 03/17/21 10:30 DCW (Rec: 03/17/21 11:11 DCW [id number]) Physical Therapy Assessment Impairments Impairments Functional Activities,Pain, Soft Tissue Mobility,Strength, Tone Goals Two Impairment Pt unable to drive car longer than 25 minutes without R LE pain/numbness Junior Net Developer Goal (LTG) Pt to drive for 90 minutes without any increase in right lower extremity symptoms LTG Duration 03/30/21 One Impairment Pt does not have an appropriate home exercise program Short Term Goal (STG) Pt to be independent and compliant with an appropriate HEP STG Duration 02/27/21 Assessment Summary Assessment Pt doing well, although after getting back from a week of travel yesterday, has slightly more tone overall, especially right ITB. Physical Therapy Plan Frequency and Duration Frequency of Treatment 2x/Week Duration of Treatment Two months Plan of Care Start Date 01/27/21 Plan of Care End Date 03/30/21 Next Visit Focus/Plan Next Note Type Treatment Note Next Visit Plan STM, R psoas/L quad stretching , hip flexor strengthening & core stability
--- NOTE | 2021-03-21 14:02 | PT.OTN ---
Current Diagnoses Pain in right hip (03/21/21) Pain in left knee (03/21/21) Physical Therapy Treatment Note PT-OP-A Visit Information Start: 01/27/21 17:04 Freq: Status: Active Protocol: Document 03/21/21 13:51 [facility] (Rec: 03/21/21 14:02 [facility] [id number]) Out-Patient Physical Therapy Visit Information Visit Information Visit Type Treatment Note Visit Start Time 13:01 Visit Stop Time 13:47 Total Visit Minutes 46 Visit Number 11 Number of SEASONAL WAREHOUSE ASSOCIATE Visits 0 PT-OP-B Current Condition Start: 01/27/21 17:04 Freq: Status: Active Protocol: Document 01/27/21 16:00 DCW (Rec: 01/27/21 17:18 DCW [id number]) Current Condition History of Current Condition Onset Date ~2 months Current Complaints Right hip and thigh pain, right knee pain History of Current Condition Pt is a 56 year old male with a two months history of right hip and left knee pain. Pt reports that he was running on a treadmill at the gym, and felt either a pull or pop in his right hip, along with a sudden pain. Pt reports pain has continued off and on since , mostly when he is driving his car more than 25 minutes, and he begins to experience numbness and pain in his thigh . Pt has had to stop running at the gym, which is throwing off his workout routine. Additionally, around that same timeframe, he was kneeling on the floor to play with his dogs, and he got a sudden intense pain in his left knee at the area of his patellar tendon and up along the lateral side of his patella. Notes he only experiences this pain when he is kneeling. Prior Treatments and Tests Pt has been treated at this clinic for a multitude of various injuries PT-OP-C Subjective Start: 01/27/21 17:04 Freq: Status: Active Protocol: Document 03/21/21 13:51 [facility] (Rec: 03/21/21 14:02 [facility] [id number]) OP-PT Subjective Patient Comments Patient Comments Pt reports he has not had back spasms the past 2 weeks. he did golf, hitting 2 buckets of balls which was okay. L knee has not been painful except occ can feel it on a little when on the floor w/dogs. His R hip flexor is a little better but R lat thigh and hip have been numb the past 2 weeks. PT-OP-F Manual Assessment Start: 01/27/21 17:04 Freq: Status: Active Protocol: Document 01/27/21 16:00 DCW (Rec: 01/27/21 17:22 DCW [id number]) Manual Assessments Soft Tissue Assessment Soft Tissue Mobility Assessment Severe tone with tenderness to palpation 3/4: Wincing and withdraw R psoas, R ITB Moderate tone with tenderness to palpation 2/4: Pain with wincing R Piriformis, L ITB Joint Mobility Assessment Joint Mobility Assessment Left patella elevated compared to right in sitting PT-OP-K Range of Motion Start: 01/27/21 17:04 Freq: Status: Active Protocol: Document 01/27/21 16:00 DCW (Rec: 01/27/21 17:27 DCW [id number]) Hip Goniometric Range of Motion Hip Right Active Hip ROM WFL Yes Testing Position Supine Left Active Hip ROM WFL Yes Testing Position Supine PT-OP-L Special Tests Start: 01/27/21 17:04 Freq: Status: Active Protocol: Document 01/27/21 16:00 DCW (Rec: 01/27/21 17:27 DCW [id number]) Special Tests Hip Special Tests Niall Test Results positive R psoas tightness Straight Leg Raise Test Results R HS tightness at 35? Scour Test Test Results Negative Posterior Labral Test Test Results Negative Morrison's Compression Test Results Negative Anterior Labral Test Test Results Negative PT-OP-M Strength Start: 01/27/21 17:04 Freq: Status: Active Protocol: Document 01/27/21 16:00 DCW (Rec: 01/27/21 17:27 DCW [id number]) Hip Strength Hip Manual Muscle Testing Right Flexion (L2) 4 Good Abduction 4+ Good+ Adduction 4+ Good+ External Rotation 4+ Good+ Internal Rotation 4+ Good+ Left Flexion (L2) 4 Good Abduction 4+ Good+ Adduction 4+ Good+ External Rotation 4+ Good+ Internal Rotation 4+ Good+ PT-OP-Q Treatments Start: 01/27/21 17:04 Freq: Status: Active Protocol: Document 03/21/21 13:51 [facility] (Rec: 03/21/21 14:02 [facility] [id number]) Manual Therapy Treatment Soft Tissue Mobilization glutes Body Location L Mobilization Type Sustained Pressure Intensity/Depth Moderate Body Position Sidelying Comments w/IR/ER 2 Body Location ITB L Mobilization Type Strumming Intensity/Depth Moderate 1 Body Location L iliopsoas Mobilization Type Sustained Pressure,Trigger Point Release Intensity/Depth Moderate Body Position Hooklying Joint Mobilizations innominate Joint R Direction abd FM lumbar Joint transverse glide L L3-5 FM hip Joint R Direction inf glide FM for abd Neuro Re-Education Treatment Other Activities core faciliation Comments 1. w/UE chop pattern 2. w/flex, add, ER, DF pattern B 3. DL diagonals PT-OP-T Assessment and Plan Start: 01/27/21 17:04 Freq: Status: Active Protocol: Document 03/21/21 13:51 [facility] (Rec: 03/21/21 14:02 [facility] [id number]) Physical Therapy Assessment Goals Two Impairment Pt unable to drive car longer than 25 minutes without R LE pain/numbness Assisted Goal (LTG) Pt to drive for 90 minutes without any increase in right lower extremity symptoms LTG Duration 03/30/21 One Impairment Pt does not have an appropriate home exercise program Short Term Goal (STG) Pt to be independent and compliant with an appropriate HEP STG Duration 02/27/21 Assessment Summary Assessment pt had improved spine mobility after manual but is still very limited into ant elevation/post dep on R. He has dec core response w/RLE but improes w/working LLE and/ or doing LEs together Physical Therapy Plan Frequency and Duration Frequency of Treatment 2x/Week Duration of Treatment Two months Plan of Care Start Date 01/27/21 Plan of Care End Date 03/30/21 Next Visit Focus/Plan Next Note Type Treatment Note Next Visit Plan STM, R psoas/L quad stretching , hip flexor strengthening & core stability
--- NOTE | 2021-03-24 12:13 | PT.OTN ---
Current Diagnoses Pain in right hip (03/24/21) Pain in left knee (03/24/21) Physical Therapy Treatment Note PT-OP-A Visit Information Start: 01/27/21 17:04 Freq: Status: Active Protocol: Document 03/24/21 10:40 [facility] (Rec: 03/24/21 12:12 [facility] [id number]) Out-Patient Physical Therapy Visit Information Visit Information Visit Type Progress Note Visit Start Time 10:32 Visit Stop Time 11:12 Total Visit Minutes 40 Visit Number 12 Number of TRANSFORMATION ANALYST Visits 0 PT-OP-B Current Condition Start: 01/27/21 17:04 Freq: Status: Active Protocol: Document 01/27/21 16:00 DCW (Rec: 01/27/21 17:18 DCW [id number]) Current Condition History of Current Condition Onset Date ~2 months Current Complaints Right hip and thigh pain, right knee pain History of Current Condition Pt is a 56 year old male with a two months history of right hip and left knee pain. Pt reports that he was running on a treadmill at the gym, and felt either a pull or pop in his right hip, along with a sudden pain. Pt reports pain has continued off and on since , mostly when he is driving his car more than 25 minutes, and he begins to experience numbness and pain in his thigh . Pt has had to stop running at the gym, which is throwing off his workout routine. Additionally, around that same timeframe, he was kneeling on the floor to play with his dogs, and he got a sudden intense pain in his left knee at the area of his patellar tendon and up along the lateral side of his patella. Notes he only experiences this pain when he is kneeling. Prior Treatments and Tests Pt has been treated at this clinic for a multitude of various injuries PT-OP-C Subjective Start: 01/27/21 17:04 Freq: Status: Active Protocol: Document 03/21/21 13:51 [facility] (Rec: 03/21/21 14:02 [facility] [id number]) OP-PT Subjective Patient Comments Patient Comments Pt reports he has not had back spasms the past 2 weeks. he did golf, hitting 2 buckets of balls which was okay. L knee has not been painful except occ can feel it on a little when on the floor w/dogs. His R hip flexor is a little better but R lat thigh and hip have been numb the past 2 weeks. PT-OP-F Manual Assessment Start: 01/27/21 17:04 Freq: Status: Active Protocol: Document 01/27/21 16:00 DCW (Rec: 01/27/21 17:22 DCW [id number]) Manual Assessments Soft Tissue Assessment Soft Tissue Mobility Assessment Severe tone with tenderness to palpation 3/4: Wincing and withdraw R psoas, R ITB Moderate tone with tenderness to palpation 2/4: Pain with wincing R Piriformis, L ITB Joint Mobility Assessment Joint Mobility Assessment Left patella elevated compared to right in sitting PT-OP-K Range of Motion Start: 01/27/21 17:04 Freq: Status: Active Protocol: Document 01/27/21 16:00 DCW (Rec: 01/27/21 17:27 DCW [id number]) Hip Goniometric Range of Motion Hip Right Active Hip ROM WFL Yes Testing Position Supine Left Active Hip ROM WFL Yes Testing Position Supine PT-OP-L Special Tests Start: 01/27/21 17:04 Freq: Status: Active Protocol: Document 03/24/21 10:40 [facility] (Rec: 03/24/21 12:12 [facility] [id number]) Special Tests Hip Special Tests slump Test Results positive R liborio's Test Results slight tight R Niall Test Results mild quad, RF tightness Straight Leg Raise Test Results about 70 Deg B tight HS PT-OP-M Strength Start: 01/27/21 17:04 Freq: Status: Active Protocol: Document 03/24/21 10:40 [facility] (Rec: 03/24/21 12:12 [facility] [id number]) Hip Strength Hip Manual Muscle Testing Right Flexion (L2) 4 Good Extension (S1) 4- Good- Abduction 4 Good Adduction 4 Good External Rotation 5 Normal Internal Rotation 4 Good Comments pain w/IR Left Flexion (L2) 5 Normal Extension (S1) 5 Normal Abduction 5 Normal Adduction 5 Normal External Rotation 5 Normal Internal Rotation 4+ Good+ Comments pain w/IR slight Knee Strength Knee Manual Muscle Testing Right Flexion (S2) 5 Normal Extension (L3) 4+ Good+ Left Flexion (S2) 5 Normal Extension (L3) 5 Normal Ankle/Foot Strength Ankle and Foot Manual Muscle Testing Right Dorsiflexion (L4) 5 Normal Plantarflexion (S1) 5 Normal Left Dorsiflexion (L4) 5 Normal Plantarflexion (S1) 5 Normal Comments 20 heel raises PT-OP-Q Treatments Start: 01/27/21 17:04 Freq: Status: Active Protocol: Document 03/24/21 10:40 [facility] (Rec: 03/24/21 12:12 [facility] [id number]) Manual Therapy Treatment Soft Tissue Mobilization lumbar Body Location ES, QL R w/post dep/ant elev Mobilization Type Rolling,Strumming,Sustained Pressure Intensity/Depth Moderate Joint Mobilizations lumbar Joint gapping L2-4 w/post depression FM Neuro Re-Education Treatment Other Activities PNF pelvis Details R post depression Comments 1. rhythmic initiation 2. sustained holds progressed to w/RLE pattern Self-Care/Home Management Treatment Education Other Education edu to talk to re: numbness as it is new in past 2 weeks and unchanged. Discussed w/ pt progress and goals. Dicsused slow progression towards hiking by starting w/less steep hikes and progress to harder ones gradually. Discussed progression towards running by doing small intervals of jogging w/walking PT-OP-T Assessment and Plan Start: 01/27/21 17:04 Freq: Status: Active Protocol: Document 03/24/21 10:40 [facility] (Rec: 03/24/21 12:12 [facility] [id number]) Physical Therapy Assessment Goals activity Short Term Goal (STG) Pt will be able to hike as he would like without inc pain STG Duration 04/23/21 Lead Sales Consultant Goal (LTG) Pt will be able to run short distances w/o inc pain LTG Duration 05/24/21 numbness Penitentiary Goal (LTG) Pt will not c/o constant numbness to R lat thigh LTG Duration 05/24 Two Impairment Pt unable to drive car longer than 25 minutes without R LE pain/numbness Lead Sales Consultant Goal (LTG) Pt to drive for 90 minutes without any increase in right lower extremity symptoms 03/24- 30 min before thigh goes tingly LTG Duration 05/24/21 One Impairment Pt does not have an appropriate home exercise program Short Term Goal (STG) Pt to be independent and compliant with an appropriate HEP STG Duration achieved Penitentiary Goal (LTG) Pt will have equal LE MMT strength LTG Duration 05/24/21 Assessment Summary Assessment Pt had improved hip ext/abd pattern after manual treatment & Neuro re edu. He does still show weakness and has imrpoved knee pain along w/dec R hip flexor pain but still pain at lat hip w/numbness that is brought on with driving and constant numbness over past 2 weeks on lat thigh . he would bneeift form cont PT to fully return to his typical activities. Physical Therapy Plan Frequency and Duration Frequency of Treatment 1-2x/Week Duration of Treatment Two months Plan of Care Start Date 03/24/21 Plan of Care End Date 05/24/21 Therapeutic Interventions Therapeutic Interventions Gait Training,Home Exercise Program,Joint Mobilizations, Manual Therapy,Neuromuscular Re-education,Patient/Caregiver Education,Self-Care/Home Management,Soft Tissue Mobilization,Taping, Therapeutic Activities, Therapeutic Exercises Modalities Cold Pack/Ice Massage,Electric Stimulation,Hot Packs, Traction- Mechanical, Ultrasound Next Visit Focus/Plan Next Note Type Treatment Note Next Visit Plan R hip mobs & soft tissue to LB & hip, core exercise
--- NOTE | 2021-03-24 12:13 | PT.OPPOC ---
Physical, Occupational & Speech Therapy At [facility] Current Diagnoses Pain in right hip (03/24/21) Pain in left knee (03/24/21) Visit Care Team Role Provider Type Darnell Quintanilla DO Primary Care Provider Physician Specialty: Family Practice Address: [address] [place] [address], [id number] Email: [email or web address] VALERY Yu Attending Provider Advanced Cloth Sponger Referring Provider Specialty: Medical Address: [address] [place] [address], [id number] Email: [email or web address] Plan Of Care PT-OP-T Assessment and Plan Start: 01/27/21 17:04 Freq: Status: Active Protocol: Document 03/24/21 10:40 [facility] (Rec: 03/24/21 12:12 [facility] [id number]) Physical Therapy Assessment Goals activity Short Term Goal (STG) Pt will be able to hike as he would like without inc pain STG Duration 04/23/21 [facility] Goal (LTG) Pt will be able to run short distances w/o inc pain LTG Duration 05/24/21 numbness [facility] Goal (LTG) Pt will not c/o constant numbness to R lat thigh LTG Duration 05/24 Two Impairment Pt unable to drive car longer than 25 minutes without R LE pain/numbness [facility] Goal (LTG) Pt to drive for 90 minutes without any increase in right lower extremity symptoms 03/24- 30 min before thigh goes tingly LTG Duration 05/24/21 One Impairment Pt does not have an appropriate home exercise program Short Term Goal (STG) Pt to be independent and compliant with an appropriate HEP STG Duration achieved Mill Operator Helper Goal (LTG) Pt will have equal LE MMT strength LTG Duration 05/24/21 Assessment Summary Assessment Pt had improved hip ext/abd pattern after manual treatment & Neuro re edu. He does still show weakness and has imrpoved knee pain along w/dec R hip flexor pain but still pain at lat hip w/numbness that is brought on with driving and constant numbness over past 2 weeks on lat thigh . he would bneeift form cont PT to fully return to his typical activities. Physical Therapy Plan Frequency and Duration Frequency of Treatment 1-2x/Week Duration of Treatment Two months Plan of Care Start Date 03/24/21 Plan of Care End Date 05/24/21 Therapeutic Interventions Therapeutic Interventions Gait Training,Home Exercise Program,Joint Mobilizations, Manual Therapy,Neuromuscular Re-education,Patient/Caregiver Education,Self-Care/Home Management,Soft Tissue Mobilization,Taping, Therapeutic Activities, Therapeutic Exercises Modalities Cold Pack/Ice Massage,Electric Stimulation,Hot Packs, Traction- Mechanical, Ultrasound Next Visit Focus/Plan Next Note Type Treatment Note Next Visit Plan R hip mobs & soft tissue to LB & hip, core exercise Plan of Care Dates Plan of Care Start Date 03/24/21 Plan of Care End Date 05/24/21 Electronically Signed by: Maribel Dietz, PT 03/24/21 1218 Please Sign and Return: I have reviewed this Plan of Care and certify that the skilled therapy services above are required to meet the patient?s needs. Physician Signature Date Printed Name and Credentials Clinical Instructor Signature Printed Name and Credentials
--- NOTE | 2021-04-05 18:29 | PT.OTN ---
Current Diagnoses Pain in right hip (04/05/21) Pain in left knee (04/05/21) Physical Therapy Treatment Note PT-OP-A Visit Information Start: 01/27/21 17:04 Freq: Status: Active Protocol: Document 04/05/21 17:27 [facility] (Rec: 04/05/21 18:28 [facility] [id number]) Out-Patient Physical Therapy Visit Information Visit Information Visit Type Treatment Note Visit Start Time 15:17 Visit Stop Time 15:57 Total Visit Minutes 40 Visit Number 13 Number of SECURITY SYSTEM INSTALLER Visits 0 PT-OP-B Current Condition Start: 01/27/21 17:04 Freq: Status: Active Protocol: Document 01/27/21 16:00 DCW (Rec: 01/27/21 17:18 DCW [id number]) Current Condition History of Current Condition Onset Date ~2 months Current Complaints Right hip and thigh pain, right knee pain History of Current Condition Pt is a 56 year old male with a two months history of right hip and left knee pain. Pt reports that he was running on a treadmill at the gym, and felt either a pull or pop in his right hip, along with a sudden pain. Pt reports pain has continued off and on since , mostly when he is driving his car more than 25 minutes, and he begins to experience numbness and pain in his thigh . Pt has had to stop running at the gym, which is throwing off his workout routine. Additionally, around that same timeframe, he was kneeling on the floor to play with his dogs, and he got a sudden intense pain in his left knee at the area of his patellar tendon and up along the lateral side of his patella. Notes he only experiences this pain when he is kneeling. Prior Treatments and Tests Pt has been treated at this clinic for a multitude of various injuries PT-OP-C Subjective Start: 01/27/21 17:04 Freq: Status: Active Protocol: Document 04/05/21 17:27 [facility] (Rec: 04/05/21 18:28 [facility] [id number]) OP-PT Subjective Patient Comments Patient Comments Pt reports no change in numb/ tingling feeling of R lat thigh PT-OP-F Manual Assessment Start: 01/27/21 17:04 Freq: Status: Active Protocol: Document 01/27/21 16:00 [facility] (Rec: 01/27/21 17:22 DCW [id number]) Manual Assessments Soft Tissue Assessment Soft Tissue Mobility Assessment Severe tone with tenderness to palpation 3/4: Wincing and withdraw R psoas, R ITB Moderate tone with tenderness to palpation 2/4: Pain with wincing R Piriformis, L ITB Joint Mobility Assessment Joint Mobility Assessment Left patella elevated compared to right in sitting PT-OP-K Range of Motion Start: 01/27/21 17:04 Freq: Status: Active Protocol: Document 01/27/21 16:00 DC[facility] (Rec: 01/27/21 17:27 [facility] [id number]) Hip Goniometric Range of Motion Hip Right Active Hip ROM WFL Yes Testing Position Supine Left Active Hip ROM WFL Yes Testing Position Supine PT-OP-L Special Tests Start: 01/27/21 17:04 Freq: Status: Active Protocol: Document 03/24/21 10:40 [facility] (Rec: 03/24/21 12:12 [facility] [id number]) Special Tests Hip Special Tests slump Test Results positive R liborio's Test Results slight tight R Niall Test Results mild quad, RF tightness Straight Leg Raise Test Results about 70 Deg B tight HS PT-OP-M Strength Start: 01/27/21 17:04 Freq: Status: Active Protocol: Document 03/24/21 10:40 [facility] (Rec: 03/24/21 12:12 [facility] [id number]) Hip Strength Hip Manual Muscle Testing Right Flexion (L2) 4 Good Extension (S1) 4- Good- Abduction 4 Good Adduction 4 Good External Rotation 5 Normal Internal Rotation 4 Good Comments pain w/IR Left Flexion (L2) 5 Normal Extension (S1) 5 Normal Abduction 5 Normal Adduction 5 Normal External Rotation 5 Normal Internal Rotation 4+ Good+ Comments pain w/IR slight Knee Strength Knee Manual Muscle Testing Right Flexion (S2) 5 Normal Extension (L3) 4+ Good+ Left Flexion (S2) 5 Normal Extension (L3) 5 Normal Ankle/Foot Strength Ankle and Foot Manual Muscle Testing Right Dorsiflexion (L4) 5 Normal Plantarflexion (S1) 5 Normal Left Dorsiflexion (L4) 5 Normal Plantarflexion (S1) 5 Normal Comments 20 heel raises PT-OP-Q Treatments Start: 01/27/21 17:04 Freq: Status: Active Protocol: Document 04/05/21 17:27 [facility] (Rec: 04/05/21 18:28 [facility] [id number]) Therapeutic Exercises Supine Exercises 4 Supine Exercise Name alt august w/TA Side bilateral Reps/Minutes 2 min Prone Exercises plank Reps/Minutes 3x30 sec w/max cues for back position Other Exercises quadruped Other Exercise Name alt hip ext Side bilateral Reps/Minutes 20 Comments max cues for back position Manual Therapy Treatment Soft Tissue Mobilization 2 Body Location ITBR Mobilization Type Strumming Intensity/Depth Moderate 1 Body Location L Patellar tendon Mobilization Type Strumming,Sustained Pressure PT-OP-R Modalities Start: 01/27/21 17:04 Freq: Status: Active Protocol: Document 04/05/21 17:27 [facility] (Rec: 04/05/21 18:29 [facility] [id number]) Infrared Treatment Treatment L knee Duration (Minutes) 1 Program or Protocal acute tendon moderate pulsed Comments lat pateelar tendon PT-OP-T Assessment and Plan Start: 01/27/21 17:04 Freq: Status: Active Protocol: Document 04/05/21 17:27 [facility] (Rec: 04/05/21 18:28 [facility] [id number]) Physical Therapy Assessment Goals activity Short Term Goal (STG) Pt will be able to hike as he would like without inc pain STG Duration 04/23/21 Mcc Goal (LTG) Pt will be able to run short distances w/o inc pain LTG Duration 05/24/21 numbness [facility] Goal (LTG) Pt will not c/o constant numbness to R lat thigh LTG Duration 05/24 Two Impairment Pt unable to drive car longer than 25 minutes without R LE pain/numbness Planer Setter Goal (LTG) Pt to drive for 90 minutes without any increase in right lower extremity symptoms 03/24- 30 min before thigh goes tingly LTG Duration 05/24/21 One Impairment Pt does not have an appropriate home exercise program Short Term Goal (STG) Pt to be independent and compliant with an appropriate HEP STG Duration achieved Planer Setter Goal (LTG) Pt will have equal LE MMT strength LTG Duration 05/24/21 Assessment Summary Assessment Unable to change pt's thigh numbness along lat fem cutaneus distribution and more of ant thigh with any movements and pt cont to be informed he needs to contact his MD re: this cahnge. L patellar tendon was inflamed and had dec mobility which imrpoved w/mobility w/manual. no pain noted kneeling after. cues required during core exercises Physical Therapy Plan Frequency and Duration Frequency of Treatment 1-2x/Week Duration of Treatment Two months Plan of Care Start Date 03/24/21 Plan of Care End Date 05/24/21 Next Visit Focus/Plan Next Note Type Treatment Note Next Visit Plan R hip mobs & soft tissue to LB & hip, core exercise
--- NOTE | 2021-04-11 12:08 | PT.OTN ---
Current Diagnoses Pain in right hip (04/11/21) Pain in left knee (04/11/21) Physical Therapy Treatment Note PT-OP-A Visit Information Start: 01/27/21 17:04 Freq: Status: Active Protocol: Document 04/11/21 11:49 [facility] (Rec: 04/11/21 12:08 [facility] [id number]) Out-Patient Physical Therapy Visit Information Visit Information Visit Type Treatment Note Visit Start Time 11:21 Visit Stop Time 12:00 Total Visit Minutes 39 Visit Number 14 Number of SQL SSRS DEVELOPER Visits 0 PT-OP-B Current Condition Start: 01/27/21 17:04 Freq: Status: Active Protocol: Document 01/27/21 16:00 DCW (Rec: 01/27/21 17:18 DCW [id number]) Current Condition History of Current Condition Onset Date ~2 months Current Complaints Right hip and thigh pain, right knee pain History of Current Condition Pt is a 56 year old male with a two months history of right hip and left knee pain. Pt reports that he was running on a treadmill at the gym, and felt either a pull or pop in his right hip, along with a sudden pain. Pt reports pain has continued off and on since , mostly when he is driving his car more than 25 minutes, and he begins to experience numbness and pain in his thigh . Pt has had to stop running at the gym, which is throwing off his workout routine. Additionally, around that same timeframe, he was kneeling on the floor to play with his dogs, and he got a sudden intense pain in his left knee at the area of his patellar tendon and up along the lateral side of his patella. Notes he only experiences this pain when he is kneeling. Prior Treatments and Tests Pt has been treated at this clinic for a multitude of various injuries PT-OP-C Subjective Start: 01/27/21 17:04 Freq: Status: Active Protocol: Document 04/11/21 11:49 [facility] (Rec: 04/11/21 12:08 [facility] [id number]) OP-PT Subjective Patient Comments Patient Comments Pt reports calling [employer] who put in for MRI of back and hip PT-OP-F Manual Assessment Start: 01/27/21 17:04 Freq: Status: Active Protocol: Document 01/27/21 16:00 DCW (Rec: 01/27/21 17:22 DCW [id number]) Manual Assessments Soft Tissue Assessment Soft Tissue Mobility Assessment Severe tone with tenderness to palpation 3/4: Wincing and withdraw R psoas, R ITB Moderate tone with tenderness to palpation 2/4: Pain with wincing R Piriformis, L ITB Joint Mobility Assessment Joint Mobility Assessment Left patella elevated compared to right in sitting PT-OP-K Range of Motion Start: 01/27/21 17:04 Freq: Status: Active Protocol: Document 01/27/21 16:00 DCW (Rec: 01/27/21 17:27 DC [id number]) Hip Goniometric Range of Motion Hip Right Active Hip ROM WFL Yes Testing Position Supine Left Active Hip ROM WFL Yes Testing Position Supine PT-OP-L Special Tests Start: 01/27/21 17:04 Freq: Status: Active Protocol: Document 03/24/21 10:40 [facility] (Rec: 03/24/21 12:12 [facility] [id number]) Special Tests Hip Special Tests slump Test Results positive R liborio's Test Results slight tight R Niall Test Results mild quad, RF tightness Straight Leg Raise Test Results about 70 Deg B tight HS PT-OP-M Strength Start: 01/27/21 17:04 Freq: Status: Active Protocol: Document 03/24/21 10:40 [facility] (Rec: 03/24/21 12:12 [facility] [id number]) Hip Strength Hip Manual Muscle Testing Right Flexion (L2) 4 Good Extension (S1) 4- Good- Abduction 4 Good Adduction 4 Good External Rotation 5 Normal Internal Rotation 4 Good Comments pain w/IR Left Flexion (L2) 5 Normal Extension (S1) 5 Normal Abduction 5 Normal Adduction 5 Normal External Rotation 5 Normal Internal Rotation 4+ Good+ Comments pain w/IR slight Knee Strength Knee Manual Muscle Testing Right Flexion (S2) 5 Normal Extension (L3) 4+ Good+ Left Flexion (S2) 5 Normal Extension (L3) 5 Normal Ankle/Foot Strength Ankle and Foot Manual Muscle Testing Right Dorsiflexion (L4) 5 Normal Plantarflexion (S1) 5 Normal Left Dorsiflexion (L4) 5 Normal Plantarflexion (S1) 5 Normal Comments 20 heel raises PT-OP-Q Treatments Start: 01/27/21 17:04 Freq: Status: Active Protocol: Document 04/11/21 11:49 [facility] (Rec: 04/11/21 12:08 [facility] [id number]) Gym Equipment Therapeutic Ball seated Ball Size/Color 75cm Reps/Duration 10 ea Comments 1. august alt 2. alt august w/shoulder flex opp 3. alt knee ext Therapeutic Exercises Prone Exercises plank Reps/Minutes 2x30 sec w/mod cues for back position Other Exercises oli pose Reps/Minutes 30 sec quadruped Other Exercise Name alt hip ext Side bilateral Reps/Minutes 15 Comments max cues for back position Manual Therapy Treatment Soft Tissue Mobilization 2 Body Location ITBR Mobilization Type Strumming Intensity/Depth Moderate 1 Body Location R hip flexors & inguinal ligament Mobilization Type Strumming,Sustained Pressure Intensity/Depth Moderate Comments w/hip IR/ER Joint Mobilizations hip Joint R Direction inf FM & ER hip on axis PT-OP-R Modalities Start: 01/27/21 17:04 Freq: Status: Active Protocol: Document 04/05/21 17:27 [facility] (Rec: 04/05/21 18:29 [facility] [id number]) Infrared Treatment Treatment L knee Duration (Minutes) 1 Program or Protocal acute tendon moderate pulsed Comments lat pateelar tendon PT-OP-T Assessment and Plan Start: 01/27/21 17:04 Freq: Status: Active Protocol: Document 04/11/21 11:49 [facility] (Rec: 04/11/21 12:08 [facility] [id number]) Physical Therapy Assessment Goals activity Short Term Goal (STG) Pt will be able to hike as he would like without inc pain STG Duration 04/23/21 Correction Goal (LTG) Pt will be able to run short distances w/o inc pain LTG Duration 05/24/21 numbness Radio Machinist Goal (LTG) Pt will not c/o constant numbness to R lat thigh LTG Duration 05/24 Two Impairment Pt unable to drive car longer than 25 minutes without R LE pain/numbness Correction Goal (LTG) Pt to drive for 90 minutes without any increase in right lower extremity symptoms 03/24- 30 min before thigh goes tingly LTG Duration 05/24/21 One Impairment Pt does not have an appropriate home exercise program Short Term Goal (STG) Pt to be independent and compliant with an appropriate HEP STG Duration achieved Correction Goal (LTG) Pt will have equal LE MMT strength LTG Duration 05/24/21 Assessment Summary Assessment Still no change in leg numbness with treatment but pt is doing better with stabilizing but does require cueing thoughout exercises for maintaining neutral lumbar spine Physical Therapy Plan Frequency and Duration Frequency of Treatment 1-2x/Week Duration of Treatment Two months Plan of Care Start Date 03/24/21 Plan of Care End Date 05/24/21 Next Visit Focus/Plan Next Note Type Treatment Note Next Visit Plan R hip mobs & soft tissue to LB & hip, core exercise
--- NOTE | 2021-04-19 10:35 | PT.OTN ---
Current Diagnoses Pain in right hip (04/19/21) Pain in left knee (04/19/21) Physical Therapy Treatment Note PT-OP-A Visit Information Start: 01/27/21 17:04 Freq: Status: Active Protocol: Document 04/19/21 09:49 [facility] (Rec: 04/19/21 10:35 [facility] [id number]) Out-Patient Physical Therapy Visit Information Visit Information Visit Type Treatment Note Visit Start Time 09:50 Visit Stop Time 10:30 Total Visit Minutes 40 Number of TOP EXECUTIVE Visits 0 PT-OP-B Current Condition Start: 01/27/21 17:04 Freq: Status: Active Protocol: Document 01/27/21 16:00 DC[facility] (Rec: 01/27/21 17:18 DCW [id number]) Current Condition History of Current Condition Onset Date ~2 months Current Complaints Right hip and thigh pain, right knee pain History of Current Condition Pt is a 56 year old male with a two months history of right hip and left knee pain. Pt reports that he was running on a treadmill at the gym, and felt either a pull or pop in his right hip, along with a sudden pain. Pt reports pain has continued off and on since , mostly when he is driving his car more than 25 minutes, and he begins to experience numbness and pain in his thigh . Pt has had to stop running at the gym, which is throwing off his workout routine. Additionally, around that same timeframe, he was kneeling on the floor to play with his dogs, and he got a sudden intense pain in his left knee at the area of his patellar tendon and up along the lateral side of his patella. Notes he only experiences this pain when he is kneeling. Prior Treatments and Tests Pt has been treated at this clinic for a multitude of various injuries PT-OP-C Subjective Start: 01/27/21 17:04 Freq: Status: Active Protocol: Document 04/19/21 09:49 [facility] (Rec: 04/19/21 10:35 [facility] [id number]) OP-PT Subjective Patient Comments Patient Comments Pt reports L HS is bothering him unknown why. Notes still painful in R lat thigh PT-OP-F Manual Assessment Start: 01/27/21 17:04 Freq: Status: Active Protocol: Document 01/27/21 16:00 DC[facility] (Rec: 01/27/21 17:22 DC[facility] [id number]) Manual Assessments Soft Tissue Assessment Soft Tissue Mobility Assessment Severe tone with tenderness to palpation 3/4: Wincing and withdraw R psoas, R ITB Moderate tone with tenderness to palpation 2/4: Pain with wincing R Piriformis, L ITB Joint Mobility Assessment Joint Mobility Assessment Left patella elevated compared to right in sitting PT-OP-K Range of Motion Start: 01/27/21 17:04 Freq: Status: Active Protocol: Document 01/27/21 16:00 [facility] (Rec: 01/27/21 17:27 DC[facility] [id number]) Hip Goniometric Range of Motion Hip Right Active Hip ROM WFL Yes Testing Position Supine Left Active Hip ROM WFL Yes Testing Position Supine PT-OP-L Special Tests Start: 01/27/21 17:04 Freq: Status: Active Protocol: Document 03/24/21 10:40 [facility] (Rec: 03/24/21 12:12 [facility] [id number]) Special Tests Hip Special Tests slump Test Results positive R liborio's Test Results slight tight R Niall Test Results mild quad, RF tightness Straight Leg Raise Test Results about 70 Deg B tight HS PT-OP-M Strength Start: 01/27/21 17:04 Freq: Status: Active Protocol: Document 03/24/21 10:40 [facility] (Rec: 03/24/21 12:12 [facility] [id number]) Hip Strength Hip Manual Muscle Testing Right Flexion (L2) 4 Good Extension (S1) 4- Good- Abduction 4 Good Adduction 4 Good External Rotation 5 Normal Internal Rotation 4 Good Comments pain w/IR Left Flexion (L2) 5 Normal Extension (S1) 5 Normal Abduction 5 Normal Adduction 5 Normal External Rotation 5 Normal Internal Rotation 4+ Good+ Comments pain w/IR slight Knee Strength Knee Manual Muscle Testing Right Flexion (S2) 5 Normal Extension (L3) 4+ Good+ Left Flexion (S2) 5 Normal Extension (L3) 5 Normal Ankle/Foot Strength Ankle and Foot Manual Muscle Testing Right Dorsiflexion (L4) 5 Normal Plantarflexion (S1) 5 Normal Left Dorsiflexion (L4) 5 Normal Plantarflexion (S1) 5 Normal Comments 20 heel raises PT-OP-Q Treatments Start: 01/27/21 17:04 Freq: Status: Active Protocol: Document 04/19/21 09:49 [facility] (Rec: 04/19/21 10:35 [facility] [id number]) Therapeutic Exercises Supine Exercises 4 Supine Exercise Name alt march w/TA Side bilateral Reps/Minutes 2x8 3 Supine Exercise Name bridge w/march Side bilateral Reps/Minutes 10 ea Prone Exercises plank Reps/Minutes 2x30 sec w/min cues for back position Standing Exercises 3 Standing Exercise Name bottoms up stretch Side bilateral Reps/Minutes 10 Other Exercises quadruped Other Exercise Name alt hip ext Side bilateral Reps/Minutes 12 Comments mod cues for back position Manual Therapy Treatment Soft Tissue Mobilization 2 Body Location B HS Mobilization Type Strumming Intensity/Depth Moderate Comments w/knee ext into hs stretch 1 Body Location R hip flexors & inguinal ligament Mobilization Type Strumming,Sustained Pressure Intensity/Depth Moderate Comments w/hip IR/ER Joint Mobilizations hip Joint R Direction inf FM on axis & inf glide PT-OP-R Modalities Start: 01/27/21 17:04 Freq: Status: Active Protocol: Document 04/05/21 17:27 [facility] (Rec: 04/05/21 18:29 [facility] [id number]) Infrared Treatment Treatment L knee Duration (Minutes) 1 Program or Protocal acute tendon moderate pulsed Comments lat pateelar tendon PT-OP-T Assessment and Plan Start: 01/27/21 17:04 Freq: Status: Active Protocol: Document 04/19/21 09:49 [facility] (Rec: 04/19/21 10:35 [facility] [id number]) Physical Therapy Assessment Goals activity Short Term Goal (STG) Pt will be able to hike as he would like without inc pain STG Duration 04/23/21 Driver Trainee Goal (LTG) Pt will be able to run short distances w/o inc pain LTG Duration 05/24/21 numbness Driver Trainee Goal (LTG) Pt will not c/o constant numbness to R lat thigh LTG Duration 05/24 Two Impairment Pt unable to drive car longer than 25 minutes without R LE pain/numbness Assisted Goal (LTG) Pt to drive for 90 minutes without any increase in right lower extremity symptoms 03/24- 30 min before thigh goes tingly LTG Duration 05/24/21 One Impairment Pt does not have an appropriate home exercise program Short Term Goal (STG) Pt to be independent and compliant with an appropriate HEP STG Duration achieved Assisted Goal (LTG) Pt will have equal LE MMT strength LTG Duration 05/24/21 Assessment Summary Assessment [facility] improvement today w/core stability exercsies with significantly less cueing needed for good form. He improved w/hip IR w/manual but did note some discomfrt in R hip flexor when doing active HS stretch during HS manual reelase Physical Therapy Plan Frequency and Duration Frequency of Treatment 1-2x/Week Duration of Treatment Two months Plan of Care Start Date 03/24/21 Plan of Care End Date 05/24/21 Next Visit Focus/Plan Next Note Type Treatment Note Next Visit Plan R hip mobs & soft tissue to LB & hip, core exercise
--- NOTE | 2021-04-26 18:41 | PT.OTN ---
Current Diagnoses Pain in right hip (04/26/21) Pain in left knee (04/26/21) Physical Therapy Treatment Note PT-OP-A Visit Information Start: 01/27/21 17:04 Freq: Status: Active Protocol: Document 04/26/21 18:36 [facility] (Rec: 04/26/21 18:41 [facility] [id number]) Out-Patient Physical Therapy Visit Information Visit Information Visit Type Discharge Summary Visit Start Time 09:47 Visit Stop Time 10:30 Total Visit Minutes 43 Visit Number 16 Number of HEADING MACHINE OPERATOR Visits 0 PT-OP-B Current Condition Start: 01/27/21 17:04 Freq: Status: Active Protocol: Document 01/27/21 16:00 DCW (Rec: 01/27/21 17:18 DCW [id number]) Current Condition History of Current Condition Onset Date ~2 months Current Complaints Right hip and thigh pain, right knee pain History of Current Condition Pt is a 56 year old male with a two months history of right hip and left knee pain. Pt reports that he was running on a treadmill at the gym, and felt either a pull or pop in his right hip, along with a sudden pain. Pt reports pain has continued off and on since , mostly when he is driving his car more than 25 minutes, and he begins to experience numbness and pain in his thigh . Pt has had to stop running at the gym, which is throwing off his workout routine. Additionally, around that same timeframe, he was kneeling on the floor to play with his dogs, and he got a sudden intense pain in his left knee at the area of his patellar tendon and up along the lateral side of his patella. Notes he only experiences this pain when he is kneeling. Prior Treatments and Tests Pt has been treated at this clinic for a multitude of various injuries PT-OP-C Subjective Start: 01/27/21 17:04 Freq: Status: Active Protocol: Document 04/26/21 18:36 [facility] (Rec: 04/26/21 18:41 [facility] [id number]) OP-PT Subjective Patient Comments Patient Comments Pt reports MRI showed HS partialy torn on R but no major changes to lumbar MRI from last done. Nothing to explain current pain. Referred to ortho. PT-OP-F Manual Assessment Start: 01/27/21 17:04 Freq: Status: Active Protocol: Document 01/27/21 16:00 DCW (Rec: 01/27/21 17:22 DCW [id number]) Manual Assessments Soft Tissue Assessment Soft Tissue Mobility Assessment Severe tone with tenderness to palpation 3/4: Wincing and withdraw R psoas, R ITB Moderate tone with tenderness to palpation 2/4: Pain with wincing R Piriformis, L ITB Joint Mobility Assessment Joint Mobility Assessment Left patella elevated compared to right in sitting PT-OP-K Range of Motion Start: 01/27/21 17:04 Freq: Status: Active Protocol: Document 01/27/21 16:00 DCW (Rec: 01/27/21 17:27 DCW [id number]) Hip Goniometric Range of Motion Hip Right Active Hip ROM WFL Yes Testing Position Supine Left Active Hip ROM WFL Yes Testing Position Supine PT-OP-L Special Tests Start: 01/27/21 17:04 Freq: Status: Active Protocol: Document 03/24/21 10:40 [facility] (Rec: 03/24/21 12:12 [facility] [id number]) Special Tests Hip Special Tests slump Test Results positive R liborio's Test Results slight tight R Niall Test Results mild quad, RF tightness Straight Leg Raise Test Results about 70 Deg B tight HS PT-OP-M Strength Start: 01/27/21 17:04 Freq: Status: Active Protocol: Document 03/24/21 10:40 [facility] (Rec: 03/24/21 12:12 [facility] [id number]) Hip Strength Hip Manual Muscle Testing Right Flexion (L2) 4 Good Extension (S1) 4- Good- Abduction 4 Good Adduction 4 Good External Rotation 5 Normal Internal Rotation 4 Good Comments pain w/IR Left Flexion (L2) 5 Normal Extension (S1) 5 Normal Abduction 5 Normal Adduction 5 Normal External Rotation 5 Normal Internal Rotation 4+ Good+ Comments pain w/IR slight Knee Strength Knee Manual Muscle Testing Right Flexion (S2) 5 Normal Extension (L3) 4+ Good+ Left Flexion (S2) 5 Normal Extension (L3) 5 Normal Ankle/Foot Strength Ankle and Foot Manual Muscle Testing Right Dorsiflexion (L4) 5 Normal Plantarflexion (S1) 5 Normal Left Dorsiflexion (L4) 5 Normal Plantarflexion (S1) 5 Normal Comments 20 heel raises PT-OP-Q Treatments Start: 01/27/21 17:04 Freq: Status: Active Protocol: Document 04/26/21 18:36 [facility] (Rec: 04/26/21 18:41 [facility] [id number]) Therapeutic Exercises Supine Exercises 4 Supine Exercise Name alt march w/TA Side bilateral Reps/Minutes 2x12 3 Supine Exercise Name bridge w/march alt Side bilateral Reps/Minutes 10 ea Prone Exercises plank Reps/Minutes 2x30 sec w/min cues for back position Other Exercises quadruped Other Exercise Name alt hip ext Side bilateral Reps/Minutes 2x8 Comments mod cues for back position Manual Therapy Treatment Soft Tissue Mobilization glutes Body Location R Mobilization Type Sustained Pressure Intensity/Depth Moderate Body Position Sidelying Comments w/IR/ER 1 Body Location R ITB Mobilization Type Strumming,Sustained Pressure Intensity/Depth Moderate Body Position Hooklying Comments w/hip IR/ER Joint Mobilizations hip Joint R Direction hip on axis ER Self-Care/Home Management Treatment Education Other Education edu to cont w/core staibltiy & stretching. Verbal review of stretches and pt is compliant. Shown how to use massage tool at home for self ITB release PT-OP-R Modalities Start: 01/27/21 17:04 Freq: Status: Active Protocol: Document 04/05/21 17:27 [facility] (Rec: 04/05/21 18:29 [facility] [id number]) Infrared Treatment Treatment L knee Duration (Minutes) 1 Program or Protocal acute tendon moderate pulsed Comments lat pateelar tendon PT-OP-T Assessment and Plan Start: 01/27/21 17:04 Freq: Status: Active Protocol: Document 04/26/21 18:36 [facility] (Rec: 04/26/21 18:41 [facility] [id number]) Physical Therapy Assessment Goals activity Short Term Goal (STG) Pt will be able to hike as he would like without inc pain STG Duration constant R lat hip pain Scanner Operator Goal (LTG) Pt will be able to run short distances w/o inc pain LTG Duration constant R lat hip pain numbness Fci Goal (LTG) Pt will not c/o constant numbness to R lat thigh LTG Duration no change Two Impairment Pt unable to drive car longer than 25 minutes without R LE pain/numbness Scanner Operator Goal (LTG) Pt to drive for 90 minutes without any increase in right lower extremity symptoms 03/24- 30 min before thigh goes tingly LTG Duration achieved-besides pain that is constant One Impairment Pt does not have an appropriate home exercise program Short Term Goal (STG) Pt to be independent and compliant with an appropriate HEP STG Duration achieved Scanner Operator Goal (LTG) Pt will have equal LE MMT strength LTG Duration good strength Assessment Summary Assessment Pt no longer has L knee pain most of the time and does not have R hip flexor discomfort anymore. He has been exercising and working on his home for moving. Still no change in the newer R lat hip pain. At this time DC as PT Has been unable to change this pain. Physical Therapy Plan Discharge Physical Therapy Discharge Reasons Plateau in Progress
== END 2021-05-12 12:59 ==
LOC: PHYS 09:45
PROVIDERS: PCP Family Medicine; Referring Provider Registered Nurse; Visit Provider Registered Nurse
DX: M25.551 Pain in right hip (principal); M25.562 Pain in left knee
CPT/HCPCS: 97110; 97112; 97140; 97161; 97535

== ENCOUNTER 2021-06-21 09:45 | Outpatient (RCR) | payer OTHER, SELFPAY ==
--- NOTE | 2021-05-03 13:36 | PT.OIE ---
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 Elevated PSA (~2012) History of appendectomy History of malignant neoplasm of prostate (12/26/16) History of neck surgery History of Jaye fundoplication History of vasectomy Left knee pain Meralgia paresthetica Prostate cancer (~2013) Right hip pain Right shoulder pain Seasonal allergies Status post prostatectomy Tinnitus of both ears Well adult exam Past Surgical History (Last Reviewed 04/14/21 @ 07:47 by VALERY Alcantara) Anesthesia History of appendectomy History of neck surgery History of Jaye fundoplication History of vasectomy Status post prostatectomy Visit Care Team Role Provider Type Darnell Quintanilla DO Primary Care Provider Physician Specialty: [facility] Address: [address] [place] [address] Email: [email or web address] VALERY Alcantara Attending Provider Advanced Shim Plug Cutter Referring Provider Specialty: [facility] Address: [address] [place] [address], [id number] Email: [email or web address] Physical Therapy Initial Evaluation PT-OP-A Visit Information Start: 05/02/21 17:07 Freq: Status: Active Protocol: Document 05/03/21 09:51 [facility] (Rec: 05/03/21 10:34 [facility] [id number]) Out-Patient Physical Therapy Visit Information Visit Information Visit Type Initial Evaluation Visit Start Time 09:51 Visit Stop Time 10:30 Total Visit Minutes 39 Visit Number 1 Number of SCHOOL PHOTOGRAPHER Visits 0 PT-OP-B Current Condition Start: 05/02/21 17:07 Freq: Status: Active Protocol: Document 05/03/21 09:51 [facility] (Rec: 05/03/21 10:34 [facility] [id number]) Current Condition History of Current Condition Onset Date since surgery Current Complaints R shoulder pain History of Current Condition Pt has had chronic shoulder pain and had surgery around 15 years ago where they cleaned out the joint. Now, he has trouble if he lays with it under him and overhead and has to bring it down w/assist of the other one. He is changing how he throws the eulalia it ball for the dog d/t pain and it still hurts. Golfing doesn' t bother it. Dionte has gradually gotten worse as he got older. A couple years ago, he cervical surgery w/a long recovery for UE strength. Treatment Goals Patient/Caregiver Goals be able to sleep on it, be able to not have it feel like it is after use, be able to throw the dogs ball w/ o pain PT-OP-C Subjective Start: 05/02/21 17:07 Freq: Status: Active Protocol: Document 05/03/21 09:51 [facility] (Rec: 05/03/21 10:34 [facility] [id number]) OP-PT Pain Assessment Location R shoulder Pain Location Details ant, lat, some post Description With Movement Description- Other irritating Frequency Intermittent Pain Duration goes away quickly after stopping doing activities, unless doing a ton Pain Aggravating Factors Lifting Other Pain Aggravating Factors over shoulder height, sleeping on it, throwing ball for dogs , reach across Other Pain Alleviating Factors stop doing painful activity PT-OP-F Manual Assessment Start: 05/02/21 17:07 Freq: Status: Active Protocol: Document 05/03/21 09:51 [facility] (Rec: 05/03/21 10:34 [facility] [id number]) Manual Assessments Soft Tissue Assessment Soft Tissue Mobility Assessment tightness UT, LS, pec, biceps Joint Mobility Assessment Joint Mobility Assessment 1st rib eelvated R; obvious prior clavicle fracture -old PT-OP-J Posture/Palpation/Skin Start: 05/02/21 17:07 Freq: Status: Active Protocol: Document 05/03/21 09:51 [facility] (Rec: 05/03/21 10:34 [facility] [id number]) Posture Evaluation Mauri Postural Classification System Mauri Postural Classifications Posterior/Anterior Elbow Flexion Test 2 PT-OP-K Range of Motion Start: 05/02/21 17:07 Freq: Status: Active Protocol: Document 05/03/21 09:51 [facility] (Rec: 05/03/21 10:34 [facility] [id number]) Shoulder Goniometric Range of Motion Shoulder Right Active Flexion 141 Extension 42 Abduction 148 External Rotation at 90 degrees 100 Abduction External Rotation at 0 degrees Abduction 70 Internal Rotation Behind Back (text) L1 Comments pain flex, ext, abd, eR Left Active Flexion 148 Extension 65 Abduction 180 External Rotation at 90 degrees 105 Abduction External Rotation at 0 degrees Abduction 80 Internal Rotation Behind Back (text) T6 PT-OP-L Special Tests Start: 05/02/21 17:07 Freq: Status: Active Protocol: Document 05/03/21 09:51 [facility] (Rec: 05/03/21 10:34 [facility] [id number]) Special Tests Shoulder Special Tests radial nerve Test Results positive ulnar nerve Test Results neg median n tension Test Results positive Empty Can Test Results neg Neer Impingement Test Results neg Speed's Biceps Test Results pain but no change for Obriens Sulcus Test Results neg Yuen [place] Impingement Test Results positive [place] Test Test Results slight pain but no difference from speeds test AC Joint Compression Test Results neg PT-OP-M Strength Start: 05/02/21 17:07 Freq: Status: Active Protocol: Document 05/03/21 09:51 [facility] (Rec: 05/03/21 10:34 [facility] [id number]) Shoulder Strength Shoulder Manual Muscle Testing Right Flexion 4 Good Extension 4 Good Abduction (C5) 4 Good External Rotation 4 Good Internal Rotation 4 Good Horizontal Abduction 4+ Good+ Horizontal Adduction 4+ Good+ Left Flexion 5 Normal Extension 5 Normal Abduction (C5) 5 Normal External Rotation 5 Normal Internal Rotation 5 Normal Horizontal Abduction 5 Normal Horizontal Adduction 5 Normal PT-OP-Q Treatments Start: 05/02/21 17:07 Freq: Status: Active Protocol: Document 05/03/21 09:51 [facility] (Rec: 05/03/21 10:34 [facility] [id number]) Therapeutic Exercises Standing Exercises ER Side bilateral Equipment Used L1 Reps/Minutes 2x10 self release Standing Exercise Name ball & cane relase AAROM Standing Exercise Name ext Side right Reps/Minutes 10 Comments comfortable range cues ext Standing Exercise Name cues for scap retraction Side bilateral Equipment Used L1 Reps/Minutes 2x10 PT-OP-T Assessment and Plan Start: 05/02/21 17:07 Freq: Status: Active Protocol: Document 05/03/21 09:51 [facility] (Rec: 05/03/21 10:34 [facility] [id number]) Physical Therapy Assessment Rehab Potential Rehabilitation Potential Good Evaluation Complexity Number of Personal Factors/Comorbidities 3 or More Number of Body Systems Impaired 4 or More Clinical Presentation at Evaluation Evolving Impairments Impairments Activity Tolerance,Functional Activities,Functional Mobility ,Pain,Posture,ROM,Soft Tissue Mobility,Strength Goals activities Short Term Goal (STG) pt will be able to throw ball for dog w/o inc pain. STG Duration 06/02/21 Slitter And Rewinder Goal (LTG) Pt will be able to lay on R shoulder w/o inc pain LTG Duration 07/03/21 ROM Group Home Goal (LTG) Pt will have equal ROM of RUE to LUE with no pain at end ranges LTG Duration 07/03/20 strength Short Term Goal (STG) Pt will be indep w/HEP STG Duration 06/02/21 Slitter And Rewinder Goal (LTG) pt will score 5/5 on MMT and at least 4/5 EFT in order to allow for improved strength w/ typical activities LTG Duration 07/03/21 Quick Dash Impairment 29.5 Short Term Goal (STG) Pt will score no higher than 20 on quick dash to show imrpoved functional ability. STG Duration 06/02/21 Slitter And Rewinder Goal (LTG) Pt will score no higher than 10 on quick dash to show imrpoved functional ability. LTG Duration 07/03/21 Assessment Summary Assessment Pt presents w/chronic R shoulder pain with history of shoulder surgery about 15 years ago to clean out the area with progressively worsening pain w/activites and limit of ROM and increased stiffness when held overhead. He is motivated to dec pain with his high level lifestyle and typically uses a eulalia-it daily to throw balls for his dog, but does have pain during this activity along w/all activities when his arm has to go over 90 deg. He would benefit from skilled PT to work on these deficits and return him to full functional ability without pain. Physical Therapy Plan Frequency and Duration Frequency of Treatment 1-2x/weeks Duration of Treatment 2 months Plan of Care Start Date 05/03/21 Plan of Care End Date 07/03/21 Therapeutic Interventions Therapeutic Interventions Aquatic Therapy,Home Exercise Program,Joint Mobilizations, Manual Therapy,Neuromuscular Re-education,Patient/Caregiver Education,Self-Care/Home Management,Soft Tissue Mobilization,Taping, Therapeutic Activities, Therapeutic Exercises Modalities Cold Pack/Ice Massage,Electric Stimulation,Hot Packs, Infrared Therapy,Ultrasound Next Visit Focus/Plan Next Note Type Treatment Note Next Visit Plan manual therapy to improve range and comfortable motion ( GH, SC, AC, ST, Tspine mobilizations), review exercises, prone exercises
--- NOTE | 2021-05-03 13:36 | PT.OPPOC ---
Addendum entered and electronically signed by Maribel Dietz PT 05/03/21 13:37: send POC Original Note: Physical, Occupational & Speech Therapy At [facility] Current Diagnoses Pain in right shoulder (05/03/21) Muscle weakness (generalized) (05/03/21) Abnormal posture (05/03/21) Visit Care Team Role Provider Type Darnell Quintanilla DO Primary Care Provider Physician Specialty: [facility] Address: [address] [place] [address], [facility] Email: [email or web address] VALERY Alcantara Attending Provider Advanced Pharmaceutical Detailer Referring Provider Specialty: [facility] Address: [address] [place] [address], [facility] Email: [email or web address] Plan Of Care PT-OP-T Assessment and Plan Start: 05/02/21 17:07 Freq: Status: Active Protocol: Document 05/03/21 09:51 [facility] (Rec: 05/03/21 10:34 [facility] [id number]) Physical Therapy Assessment Rehab Potential Rehabilitation Potential Good Evaluation Complexity Number of Personal Factors/Comorbidities 3 or More Number of Body Systems Impaired 4 or More Clinical Presentation at Evaluation Evolving Impairments Impairments Activity Tolerance,Functional Activities,Functional Mobility ,Pain,Posture,ROM,Soft Tissue Mobility,Strength Goals activities Short Term Goal (STG) pt will be able to throw ball for dog w/o inc pain. STG Duration 06/02/21 Skilled Nursing Goal (LTG) Pt will be able to lay on R shoulder w/o inc pain LTG Duration 07/03/21 ROM Flight Communications Operator Goal (LTG) Pt will have equal ROM of RUE to LUE with no pain at end ranges LTG Duration 07/03/20 strength Short Term Goal (STG) Pt will be indep w/HEP STG Duration 06/02/21 Skilled Nursing Goal (LTG) pt will score 5/5 on MMT and at least 4/5 EFT in order to allow for improved strength w/ typical activities LTG Duration 07/03/21 Quick Dash Impairment 29.5 Short Term Goal (STG) Pt will score no higher than 20 on quick dash to show imrpoved functional ability. STG Duration 06/02/21 Skilled Nursing Goal (LTG) Pt will score no higher than 10 on quick dash to show imrpoved functional ability. LTG Duration 07/03/21 Assessment Summary Assessment Pt presents w/chronic R shoulder pain with history of shoulder surgery about 15 years ago to clean out the area with progressively worsening pain w/activites and limit of ROM and increased stiffness when held overhead. He is motivated to dec pain with his high level lifestyle and typically uses a eulalia-it daily to throw balls for his dog, but does have pain during this activity along w/all activities when his arm has to go over 90 deg. He would benefit from skilled PT to work on these deficits and return him to full functional ability without pain. Physical Therapy Plan Frequency and Duration Frequency of Treatment 1-2x/weeks Duration of Treatment 2 months Plan of Care Start Date 05/03/21 Plan of Care End Date 07/03/21 Therapeutic Interventions Therapeutic Interventions Aquatic Therapy,Home Exercise Program,Joint Mobilizations, Manual Therapy,Neuromuscular Re-education,Patient/Caregiver Education,Self-Care/Home Management,Soft Tissue Mobilization,Taping, Therapeutic Activities, Therapeutic Exercises Modalities Cold Pack/Ice Massage,Electric Stimulation,Hot Packs, Infrared Therapy,Ultrasound Next Visit Focus/Plan Next Note Type Treatment Note Next Visit Plan manual therapy to improve range and comfortable motion ( GH, SC, AC, ST, Tspine mobilizations), review exercises, prone exercises Plan of Care Dates Plan of Care Start Date 05/03/21 Plan of Care End Date 07/03/21 Electronically Signed by: Maribel Dietz, PT 05/03/21 [id number] Please Sign and Return: I have reviewed this Plan of Care and certify that the skilled therapy services above are required to meet the patient?s needs. Physician Signature Date Printed Name and Credentials Clinical Instructor Signature Printed Name and Credentials
--- NOTE | 2021-05-10 18:06 | PT.OTN ---
Current Diagnoses Pain in right shoulder (05/10/21) Muscle weakness (generalized) (05/10/21) Abnormal posture (05/10/21) Physical Therapy Treatment Note PT-OP-A Visit Information Start: 05/02/21 17:07 Freq: Status: Active Protocol: Document 05/10/21 10:52 JG (Rec: 05/10/21 11:13 PrasannaG [id number]) Out-Patient Physical Therapy Visit Information Visit Information Visit Type Treatment Note Visit Start Time 09:47 Visit Stop Time 10:30 Total Visit Minutes 43 Visit Number 2 Number of FURNITURE SHAMPOOER Visits 0 PT-OP-B Current Condition Start: 05/02/21 17:07 Freq: Status: Active Protocol: Document 05/03/21 09:51 LR (Rec: 05/03/21 10:34 [facility] [id number]) Current Condition History of Current Condition Onset Date since surgery Current Complaints R shoulder pain History of Current Condition Pt has had chronic shoulder pain and had surgery around 15 years ago where they cleaned out the joint. Now, he has trouble if he lays with it under him and overhead and has to bring it down w/assist of the other one. He is changing how he throws the eulalia it ball for the dog d/t pain and it still hurts. Golfing doesn' t bother it. 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 A couple years ago, he cervical surgery w/a long recovery for UE strength. Treatment Goals Patient/Caregiver Goals be able to sleep on it, be able to not have it feel like it is after use, be able to throw the dogs ball w/ o pain PT-OP-C Subjective Start: 05/02/21 17:07 Freq: Status: Active Protocol: Document 05/10/21 10:52 JG (Rec: 05/10/21 11:13 PrasannaG [id number]) OP-PT Subjective Patient Comments Patient Comments Pt reports that Sunday evening his R shld had a significant increase in pain. Pt reports that he thinks the increase in pain was due to playing his ron guitar for 2 hours without a strap in a seated position. Pt did not take the dogs to the dog park the next morning due to pain. Pt also reports he and his have continued packing up and donating items for their upcoming move. PT-OP-F Manual Assessment Start: 05/02/21 17:07 Freq: Status: Active Protocol: Document 05/03/21 09:51 [facility] (Rec: 05/03/21 10:34 [facility] [id number]) Manual Assessments Soft Tissue Assessment Soft Tissue Mobility Assessment tightness UT, LS, pec, biceps Joint Mobility Assessment Joint Mobility Assessment 1st rib eelvated R; obvious prior clavicle fracture -old PT-OP-J Posture/Palpation/Skin Start: 05/02/21 17:07 Freq: Status: Active Protocol: Document 05/03/21 09:51 [facility] (Rec: 05/03/21 10:34 [facility] [id number]) Posture Evaluation [facility] Postural Classification System [facility] Postural Classifications Posterior/Anterior Elbow Flexion Test 2 PT-OP-K Range of Motion Start: 05/02/21 17:07 Freq: Status: Active Protocol: Document 05/03/21 09:51 [facility] (Rec: 05/03/21 10:34 [facility] [id number]) Shoulder Goniometric Range of Motion Shoulder Right Active Flexion 141 Extension 42 Abduction 148 External Rotation at 90 degrees 100 Abduction External Rotation at 0 degrees Abduction 70 Internal Rotation Behind Back (text) L1 Comments pain flex, ext, abd, eR Left Active Flexion 148 Extension 65 Abduction 180 External Rotation at 90 degrees 105 Abduction External Rotation at 0 degrees Abduction 80 Internal Rotation Behind Back (text) T6 PT-OP-L Special Tests Start: 05/02/21 17:07 Freq: Status: Active Protocol: Document 05/03/21 09:51 [facility] (Rec: 05/03/21 10:34 [facility] [id number]) Special Tests Shoulder Special Tests radial nerve Test Results positive ulnar nerve Test Results neg median n tension Test Results positive Empty Can Test Results neg Neer Impingement Test Results neg Speed's Biceps Test Results pain but no change for Obriens Sulcus Test Results neg Yuen [place] Impingement Test Results positive Ocean Test Test Results slight pain but no difference from speeds test AC Joint Compression Test Results neg PT-OP-M Strength Start: 05/02/21 17:07 Freq: Status: Active Protocol: Document 05/03/21 09:51 [facility] (Rec: 05/03/21 10:34 [facility] [id number]) Shoulder Strength Shoulder Manual Muscle Testing Right Flexion 4 Good Extension 4 Good Abduction (C5) 4 Good External Rotation 4 Good Internal Rotation 4 Good Horizontal Abduction 4+ Good+ Horizontal Adduction 4+ Good+ Left Flexion 5 Normal Extension 5 Normal Abduction (C5) 5 Normal External Rotation 5 Normal Internal Rotation 5 Normal Horizontal Abduction 5 Normal Horizontal Adduction 5 Normal PT-OP-Q Treatments Start: 05/02/21 17:07 Freq: Status: Active Protocol: Document 05/10/21 10:52 LALI (Rec: 05/10/21 11:13 LALI [id number]) Therapeutic Exercises Standing Exercises ER Side bilateral Equipment Used L1 Reps/Minutes 1x15 Comments needed towel btw R elbow and side, verbal cues to maintain form AAROM Standing Exercise Name ext Side right Reps/Minutes 1x12 Comments pt needed verbal/tactial cues for staying within painfree range ext Side bilateral Equipment Used L1 Reps/Minutes 2x10 Comments pt needed verbal/tactial cues for scap retraction and UT/ levator relaxation Manual Therapy Treatment Soft Tissue Mobilization Pectorals Body Location R Mobilization Type Sustained Pressure Intensity/Depth Moderate Body Position Supine Comments 1. Pec major: Sustained pressure while SPT brought into passive, pain-free abd 2. Pec minor: sustained pressure while SPT sterling into passive, pain-free flex UT, scalenes Body Location R Mobilization Type Sustained Pressure Intensity/Depth Moderate Comments 1. Sustained pressure UT while pt rotated head to left in supine 2. Sustained pressure on UT while SPT passively moved shld and scapula, hold/relax in sidelying Joint Mobilizations 2nd and 3rd ribs Joint R Direction Caudal Body Position Sidelying Comments PT sustained pressure and hold /relax on the lateral aspect of the 2nd and 3rd ribs through the armpit 1st rib Joint R Direction Posterior Body Position Supine Comments SPT sustained pressure on ant 1st rib while pt took deep breaths PT-OP-T Assessment and Plan Start: 05/02/21 17:07 Freq: Status: Active Protocol: Document 05/10/21 10:52 LALI (Rec: 05/10/21 11:13 LALI [id number]) Physical Therapy Assessment Goals activities Short Term Goal (STG) pt will be able to throw ball for dog w/o inc pain. STG Duration 06/02/21 Half-Way Goal (LTG) Pt will be able to lay on R shoulder w/o inc pain LTG Duration 07/03/21 ROM Half-Way Goal (LTG) Pt will have equal ROM of RUE to LUE with no pain at end ranges LTG Duration 07/03/20 strength Short Term Goal (STG) Pt will be indep w/HEP STG Duration 06/02/21 Half-Way Goal (LTG) pt will score 5/5 on MMT and at least 4/5 EFT in order to allow for improved strength w/ typical activities LTG Duration 07/03/21 Quick Dash Impairment 29.5 Short Term Goal (STG) Pt will score no higher than 20 on quick dash to show imrpoved functional ability. STG Duration 06/02/21 Buckle Inspector Goal (LTG) Pt will score no higher than 10 on quick dash to show imrpoved functional ability. LTG Duration 07/03/21 Assessment Summary Assessment Pt presents with continued chronic R shld pain. Pt required verbal and tactial cues for ther ex. Pt responded well to manual therapy with increased tissue mobility and scapular depression which should improve pain-free shoulder motion as it allows pt appropriate motor patterns. Physical Therapy Plan Frequency and Duration Frequency of Treatment 1-2x/week Duration of Treatment 2 months Plan of Care Start Date 05/03/21 Plan of Care End Date 07/03/21 Next Visit Focus/Plan Next Note Type Treatment Note Next Visit Plan review HEP, manual therapy to improve pain-free range of motion and functional movement (1-3 ribs, UT, levator, medial border of scapula), continue cervical spine posture education
--- NOTE | 2021-05-18 11:09 | PT.OTN ---
Current Diagnoses Pain in right shoulder (05/18/21) Muscle weakness (generalized) (05/18/21) Abnormal posture (05/18/21) Physical Therapy Treatment Note PT-OP-A Visit Information Start: 05/02/21 17:07 Freq: Status: Active Protocol: Document 05/18/21 09:59 [facility] (Rec: 05/18/21 11:09 [facility] [id number]) Out-Patient Physical Therapy Visit Information Visit Information Visit Type Treatment Note Visit Start Time 09:50 Visit Stop Time 10:30 Total Visit Minutes 40 Visit Number 3 Number of JEWEL GRINDER Visits 0 PT-OP-B Current Condition Start: 05/02/21 17:07 Freq: Status: Active Protocol: Document 05/03/21 09:51 [facility] (Rec: 05/03/21 10:34 [facility] [id number]) Current Condition History of Current Condition Onset Date since surgery Current Complaints R shoulder pain History of Current Condition Pt has had chronic shoulder pain and had surgery around 15 years ago where they cleaned out the joint. Now, he has trouble if he lays with it under him and overhead and has to bring it down w/assist of the other one. He is changing how he throws the eulalia it ball for the dog d/t pain and it still hurts. Golfing doesn' t bother it. 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 A couple years ago, he cervical surgery w/a long recovery for UE strength. Treatment Goals Patient/Caregiver Goals be able to sleep on it, be able to not have it feel like it is after use, be able to throw the dogs ball w/ o pain PT-OP-C Subjective Start: 05/02/21 17:07 Freq: Status: Active Protocol: Document 05/18/21 09:59 [facility] (Rec: 05/18/21 11:09 [facility] [id number]) OP-PT Subjective Patient Comments Patient Comments Pt reports he saw ortho for R leg and plan is for MD to do injection in back and that MD said he has to see shoulder MD . PT-OP-F Manual Assessment Start: 05/02/21 17:07 Freq: Status: Active Protocol: Document 05/03/21 09:51 [facility] (Rec: 05/03/21 10:34 [facility] [id number]) Manual Assessments Soft Tissue Assessment Soft Tissue Mobility Assessment tightness UT, LS, pec, biceps Joint Mobility Assessment Joint Mobility Assessment 1st rib eelvated R; obvious prior clavicle fracture -old PT-OP-J Posture/Palpation/Skin Start: 05/02/21 17:07 Freq: Status: Active Protocol: Document 05/03/21 09:51 [facility] (Rec: 05/03/21 10:34 [facility] [id number]) Posture Evaluation [facility] Postural Classification System [facility] Postural Classifications Posterior/Anterior Elbow Flexion Test 2 PT-OP-K Range of Motion Start: 05/02/21 17:07 Freq: Status: Active Protocol: Document 05/03/21 09:51 [facility] (Rec: 05/03/21 10:34 [facility] [id number]) Shoulder Goniometric Range of Motion Shoulder Right Active Flexion 141 Extension 42 Abduction 148 External Rotation at 90 degrees 100 Abduction External Rotation at 0 degrees Abduction 70 Internal Rotation Behind Back (text) L1 Comments pain flex, ext, abd, eR Left Active Flexion 148 Extension 65 Abduction 180 External Rotation at 90 degrees 105 Abduction External Rotation at 0 degrees Abduction 80 Internal Rotation Behind Back (text) T6 PT-OP-L Special Tests Start: 05/02/21 17:07 Freq: Status: Active Protocol: Document 05/03/21 09:51 [facility] (Rec: 05/03/21 10:34 [facility] [id number]) Special Tests Shoulder Special Tests radial nerve Test Results positive ulnar nerve Test Results neg median n tension Test Results positive Empty Can Test Results neg Neer Impingement Test Results neg Speed's Biceps Test Results pain but no change for Obriens Sulcus Test Results neg Yuen [place] Impingement Test Results positive [place] Test Test Results slight pain but no difference from speeds test AC Joint Compression Test Results neg PT-OP-M Strength Start: 05/02/21 17:07 Freq: Status: Active Protocol: Document 05/03/21 09:51 [facility] (Rec: 05/03/21 10:34 [facility] [id number]) Shoulder Strength Shoulder Manual Muscle Testing Right Flexion 4 Good Extension 4 Good Abduction (C5) 4 Good External Rotation 4 Good Internal Rotation 4 Good Horizontal Abduction 4+ Good+ Horizontal Adduction 4+ Good+ Left Flexion 5 Normal Extension 5 Normal Abduction (C5) 5 Normal External Rotation 5 Normal Internal Rotation 5 Normal Horizontal Abduction 5 Normal Horizontal Adduction 5 Normal PT-OP-Q Treatments Start: 05/02/21 17:07 Freq: Status: Active Protocol: Document 05/18/21 09:59 [facility] (Rec: 05/18/21 11:09 [facility] [id number]) Therapeutic Exercises Prone Exercises ER Prone Exercise Name over tball in plank Side bilateral Reps/Minutes 2x10 Comments 90/90 ER ext Prone Exercise Name over tball in plank Side bilateral Reps/Minutes 2x10 Habd Prone Exercise Name over tball in plank Side bilateral Reps/Minutes 2x10 Standing Exercises ext Side bilateral Equipment Used L1 Reps/Minutes 2x10 Comments pt needed verbal/tactial cues for scap retraction and UT/ levator relaxation Manual Therapy Treatment Soft Tissue Mobilization UT, scalenes Body Location R UT, scalenes, SCM Mobilization Type Rolling,Strumming,Sustained Pressure Intensity/Depth Moderate Comments w/cervical rotation Joint Mobilizations Ant Ribs Comments cranial rib 7 FM w/breathing Neuro Re-Education Treatment Other Activities PNF Comments 1. scap post dep sustained hold R 2. quick stretch to facilitate R sided inhalation PT-OP-T Assessment and Plan Start: 05/02/21 17:07 Freq: Status: Active Protocol: Document 05/18/21 09:59 [facility] (Rec: 05/18/21 11:09 [facility] [id number]) Physical Therapy Assessment Goals activities Short Term Goal (STG) pt will be able to throw ball for dog w/o inc pain. STG Duration 06/02/21 Turning And Beading Machine Operator Goal (LTG) Pt will be able to lay on R shoulder w/o inc pain LTG Duration 07/03/21 ROM Turning And Beading Machine Operator Goal (LTG) Pt will have equal ROM of RUE to LUE with no pain at end ranges LTG Duration 07/03/20 strength Short Term Goal (STG) Pt will be indep w/HEP STG Duration 06/02/21 Penitentiary Goal (LTG) pt will score 5/5 on MMT and at least 4/5 EFT in order to allow for improved strength w/ typical activities LTG Duration 07/03/21 Quick Dash Impairment 29.5 Short Term Goal (STG) Pt will score no higher than 20 on quick dash to show imrpoved functional ability. STG Duration 06/02/21 Penitentiary Goal (LTG) Pt will score no higher than 10 on quick dash to show imrpoved functional ability. LTG Duration 07/03/21 Assessment Summary Assessment Tactile cueing used in prone for LT activiation and cues for thoracic and neck neutral postioning. He fatigued with exercises in prone. Noted pain at end of 90/90 ER and when questioned, he noted pain throughout movement so discontinue next day. Able to improve scap motion into depression w/manual therapy as prior to manual therapy, pt could not get scap depression when scap set onto ribcage. Physical Therapy Plan Frequency and Duration Frequency of Treatment 1-2x/week Duration of Treatment 2 months Plan of Care Start Date 05/03/21 Plan of Care End Date 07/03/21 Next Visit Focus/Plan Next Note Type Treatment Note Next Visit Plan review prone strengthening, manual therapy to improve pain -free range of motion and functional movement (1-3 ribs, UT, levator, medial border of scapula), continue cervical spine posture education
--- NOTE | 2021-05-24 18:13 | PT.OTN ---
Addendum entered and electronically signed by Maribel Dietz, PT 05/24/21 18:34: PT student treated w/direct supervision & direction of PT Original Note: Current Diagnoses Pain in right shoulder (05/24/21) Muscle weakness (generalized) (05/24/21) Abnormal posture (05/24/21) Physical Therapy Treatment Note PT-OP-A Visit Information Start: 05/02/21 17:07 Freq: Status: Active Protocol: Document 05/24/21 13:37 JG (Rec: 05/24/21 13:55 J [id number]) Out-Patient Physical Therapy Visit Information Visit Information Visit Type Treatment Note Visit Start Time 09:49 Visit Stop Time 10:40 Total Visit Minutes 51 Visit Number 4 Number of HOLDER PILE DRIVING Visits 0 PT-OP-B Current Condition Start: 05/02/21 17:07 Freq: Status: Active Protocol: Document 05/03/21 09:51 [facility] (Rec: 05/03/21 10:34 [facility] [id number]) Current Condition History of Current Condition Onset Date since surgery Current Complaints R shoulder pain History of Current Condition Pt has had chronic shoulder pain and had surgery around 15 years ago where they cleaned out the joint. Now, he has trouble if he lays with it under him and overhead and has to bring it down w/assist of the other one. He is changing how he throws the eulalia it ball for the dog d/t pain and it still hurts. Golfing doesn' t bother it. 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 A couple years ago, he cervical surgery w/a long recovery for UE strength. Treatment Goals Patient/Caregiver Goals be able to sleep on it, be able to not have it feel like it is after use, be able to throw the dogs ball w/ o pain PT-OP-C Subjective Start: 05/02/21 17:07 Freq: Status: Active Protocol: Document 05/24/21 13:37 JG (Rec: 05/24/21 13:55 JG [id number]) OP-PT Subjective Patient Comments Patient Comments Pt reports he is continuing to be hopefully about getting an injection for pain management PT-OP-F Manual Assessment Start: 05/02/21 17:07 Freq: Status: Active Protocol: Document 05/03/21 09:51 [facility] (Rec: 05/03/21 10:34 [facility] [id number]) Manual Assessments Soft Tissue Assessment Soft Tissue Mobility Assessment tightness UT, LS, pec, biceps Joint Mobility Assessment Joint Mobility Assessment 1st rib eelvated R; obvious prior clavicle fracture -old PT-OP-J Posture/Palpation/Skin Start: 05/02/21 17:07 Freq: Status: Active Protocol: Document 05/03/21 09:51 [facility] (Rec: 05/03/21 10:34 [facility] [id number]) Posture Evaluation [facility] Postural Classification System [facility] Postural Classifications Posterior/Anterior Elbow Flexion Test 2 PT-OP-K Range of Motion Start: 05/02/21 17:07 Freq: Status: Active Protocol: Document 05/03/21 09:51 [facility] (Rec: 05/03/21 10:34 [facility] [id number]) Shoulder Goniometric Range of Motion Shoulder Right Active Flexion 141 Extension 42 Abduction 148 External Rotation at 90 degrees 100 Abduction External Rotation at 0 degrees Abduction 70 Internal Rotation Behind Back (text) L1 Comments pain flex, ext, abd, eR Left Active Flexion 148 Extension 65 Abduction 180 External Rotation at 90 degrees 105 Abduction External Rotation at 0 degrees Abduction 80 Internal Rotation Behind Back (text) T6 PT-OP-L Special Tests Start: 05/02/21 17:07 Freq: Status: Active Protocol: Document 05/03/21 09:51 [facility] (Rec: 05/03/21 10:34 [facility] [id number]) Special Tests Shoulder Special Tests radial nerve Test Results positive ulnar nerve Test Results neg median n tension Test Results positive Empty Can Test Results neg Neer Impingement Test Results neg Speed's Biceps Test Results pain but no change for Obriens Sulcus Test Results neg Yu[place] Impingement Test Results positive [place] Test Test Results slight pain but no difference from speeds test AC Joint Compression Test Results neg PT-OP-M Strength Start: 05/02/21 17:07 Freq: Status: Active Protocol: Document 05/03/21 09:51 [facility] (Rec: 05/03/21 10:34 [facility] [id number]) Shoulder Strength Shoulder Manual Muscle Testing Right Flexion 4 Good Extension 4 Good Abduction (C5) 4 Good External Rotation 4 Good Internal Rotation 4 Good Horizontal Abduction 4+ Good+ Horizontal Adduction 4+ Good+ Left Flexion 5 Normal Extension 5 Normal Abduction (C5) 5 Normal External Rotation 5 Normal Internal Rotation 5 Normal Horizontal Abduction 5 Normal Horizontal Adduction 5 Normal PT-OP-Q Treatments Start: 05/02/21 17:07 Freq: Status: Active Protocol: Document 05/24/21 13:37 JG (Rec: 05/24/21 13:55 JG [id number]) Therapeutic Exercises Prone Exercises Row Side bilateral Equipment Used over therapeutic ball Reps/Minutes 1x5 Comments able to do 1st 50% ROM w/o pain, discontinued due to pain Plank Prone Exercise Name front plank, straight arms Side bilateral Resistance bodyweight Reps/Minutes 2x30 sec Comments cue for shld placement and stablization scapion Prone Exercise Name over tball in plank Reps/Minutes 2x10 Comments mod cueing for scap retraction and head placement ER Prone Exercise Name over tball in plank Side bilateral Reps/Minutes 3x3 Comments 90/90 ER, attempted several repositioning of shld jt, discontinued 2 mai ext Prone Exercise Name over tball in plank Side bilateral Reps/Minutes 2x10 Comments no pain, mod cueing for scap retraction and head placement Habd Prone Exercise Name over tball in plank Side bilateral Reps/Minutes 1x5 Comments discontinued due to pain Sidelying Exercises Plank Sidelying Exercise Name side plank, straight arm Side bilateral Resistance bodyweight Reps/Minutes 1x20 sec L, 2x20 sec R Comments cue for shld placement and stablization Standing Exercises ext Side bilateral Equipment Used L2 Reps/Minutes 2x10 Comments pt needed verbal/tactial cues for scap retraction and UT/ levator relaxation Manual Therapy Treatment Soft Tissue Mobilization 2 Body Location Subscap, pecs Mobilization Type Sustained Pressure Intensity/Depth Moderate Comments w/passive and active ER, abd, flex R shld 1 Body Location SA Mobilization Type Strumming,Sustained Pressure Intensity/Depth Deep Body Position Sidelying Comments w/passive motion of R GH, scap and breathing Joint Mobilizations ribs Joint R lat aspect of ribs Direction caudal Grade IV Body Position Sidelying Comments w/breathing PT-OP-R Modalities Start: 05/02/21 17:07 Freq: Status: Active Protocol: Document 05/24/21 13:37 JG (Rec: 05/24/21 13:55 JG [id number]) Hot Pack/Cold Pack Treatment Cold Pack Location R shld Patient Position Supine Treatment Duration (minutes) 10 Patient Tolerance Good PT-OP-T Assessment and Plan Start: 05/02/21 17:07 Freq: Status: Active Protocol: Document 05/24/21 13:37 JAnny (Rec: 05/24/21 13:55 JG [id number]) Physical Therapy Assessment Goals activities Short Term Goal (STG) pt will be able to throw ball for dog w/o inc pain. STG Duration 06/02/21 Leaflet Or Newspaper Deliverer Goal (LTG) Pt will be able to lay on R shoulder w/o inc pain LTG Duration 07/03/21 ROM [facility] Goal (LTG) Pt will have equal ROM of RUE to LUE with no pain at end ranges LTG Duration 07/03/20 strength Short Term Goal (STG) Pt will be indep w/HEP STG Duration 06/02/21 [facility] Goal (LTG) pt will score 5/5 on MMT and at least 4/5 EFT in order to allow for improved strength w/ typical activities LTG Duration 07/03/21 Quick Dash Impairment 29.5 Short Term Goal (STG) Pt will score no higher than 20 on quick dash to show imrpoved functional ability. STG Duration 06/02/21 Leaflet Or Newspaper Deliverer Goal (LTG) Pt will score no higher than 10 on quick dash to show imrpoved functional ability. LTG Duration 07/03/21 Assessment Summary Assessment Pt fatigued quickly during exercises and req mod cueing to maintain form. Pt req continued education on the importance of communicating pain to PT. Pt was unable to do prone hor abd, row, ER without pain. Noteable pt was able to complete prone scaption without pain. After manual therapy, R scapula was able to move into depression farther and with notably less restriction. Physical Therapy Plan Frequency and Duration Frequency of Treatment 1-2x/week Duration of Treatment 2 months Plan of Care Start Date 05/03/21 Plan of Care End Date 07/03/21 Next Visit Focus/Plan Next Note Type Treatment Note Next Visit Plan continue prone strengthening, manual therapy to increase pain-free ROM of R shld (pecs, subscap, SA), continue posture education during static and dynamic movements
--- NOTE | 2021-06-01 18:10 | PT.OTN ---
Addendum entered and electronically signed by Maribel Dietz PT 06/01/21 18:19: SPT supervised and directed by PT Original Note: Current Diagnoses Pain in right shoulder (06/01/21) Muscle weakness (generalized) (06/01/21) Abnormal posture (06/01/21) Physical Therapy Treatment Note PT-OP-A Visit Information Start: 05/02/21 17:07 Freq: Status: Active Protocol: Document 06/01/21 14:24 JG (Rec: 06/01/21 14:33 Prasanna [id number]) Out-Patient Physical Therapy Visit Information Visit Information Visit Type Treatment Note Visit Start Time 09:10 Visit Stop Time 10:48 Total Visit Minutes 38 Visit Number 5 Number of STAFF DEVELOPER Visits 0 PT-OP-B Current Condition Start: 05/02/21 17:07 Freq: Status: Active Protocol: Document 05/03/21 09:51 [facility] (Rec: 05/03/21 10:34 [facility] [id number]) Current Condition History of Current Condition Onset Date since surgery Current Complaints R shoulder pain History of Current Condition Pt has had chronic shoulder pain and had surgery around 15 years ago where they cleaned out the joint. Now, he has trouble if he lays with it under him and overhead and has to bring it down w/assist of the other one. He is changing how he throws the eulalia it ball for the dog d/t pain and it still hurts. Golfing doesn' t bother it. 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 A couple years ago, he cervical surgery w/a long recovery for UE strength. Treatment Goals Patient/Caregiver Goals be able to sleep on it, be able to not have it feel like it is after use, be able to throw the dogs ball w/ o pain PT-OP-C Subjective Start: 05/02/21 17:07 Freq: Status: Active Protocol: Document 06/01/21 14:24 JG (Rec: 06/01/21 14:33 JG [id number]) OP-PT Subjective Patient Comments Patient Comments Pt R lateral oblique was hurt when cleaning baseboards in quad. PT-OP-F Manual Assessment Start: 05/02/21 17:07 Freq: Status: Active Protocol: Document 05/03/21 09:51 [facility] (Rec: 05/03/21 10:34 [facility] [id number]) Manual Assessments Soft Tissue Assessment Soft Tissue Mobility Assessment tightness UT, LS, pec, biceps Joint Mobility Assessment Joint Mobility Assessment 1st rib eelvated R; obvious prior clavicle fracture -old PT-OP-J Posture/Palpation/Skin Start: 05/02/21 17:07 Freq: Status: Active Protocol: Document 05/03/21 09:51 [facility] (Rec: 05/03/21 10:34 [facility] [id number]) Posture Evaluation [facility] Postural Classification System [facility] Postural Classifications Posterior/Anterior Elbow Flexion Test 2 PT-OP-K Range of Motion Start: 05/02/21 17:07 Freq: Status: Active Protocol: Document 05/03/21 09:51 [facility] (Rec: 05/03/21 10:34 [facility] [id number]) Shoulder Goniometric Range of Motion Shoulder Right Active Flexion 141 Extension 42 Abduction 148 External Rotation at 90 degrees 100 Abduction External Rotation at 0 degrees Abduction 70 Internal Rotation Behind Back (text) L1 Comments pain flex, ext, abd, eR Left Active Flexion 148 Extension 65 Abduction 180 External Rotation at 90 degrees 105 Abduction External Rotation at 0 degrees Abduction 80 Internal Rotation Behind Back (text) T6 PT-OP-L Special Tests Start: 05/02/21 17:07 Freq: Status: Active Protocol: Document 05/03/21 09:51 [facility] (Rec: 05/03/21 10:34 [facility] [id number]) Special Tests Shoulder Special Tests radial nerve Test Results positive ulnar nerve Test Results neg median n tension Test Results positive Empty Can Test Results neg Neer Impingement Test Results neg Speed's Biceps Test Results pain but no change for Obriens Sulcus Test Results neg Yu[place] Impingement Test Results positive [place] Test Test Results slight pain but no difference from speeds test AC Joint Compression Test Results neg PT-OP-M Strength Start: 05/02/21 17:07 Freq: Status: Active Protocol: Document 05/03/21 09:51 [facility] (Rec: 05/03/21 10:34 [facility] [id number]) Shoulder Strength Shoulder Manual Muscle Testing Right Flexion 4 Good Extension 4 Good Abduction (C5) 4 Good External Rotation 4 Good Internal Rotation 4 Good Horizontal Abduction 4+ Good+ Horizontal Adduction 4+ Good+ Left Flexion 5 Normal Extension 5 Normal Abduction (C5) 5 Normal External Rotation 5 Normal Internal Rotation 5 Normal Horizontal Abduction 5 Normal Horizontal Adduction 5 Normal PT-OP-Q Treatments Start: 05/02/21 17:07 Freq: Status: Active Protocol: Document 06/01/21 14:24 JG (Rec: 06/01/21 14:33 Prasanna [id number]) Therapeutic Exercises Supine Exercises Pelvic Tilt Supine Exercise Name w/heel drops Reps/Minutes 2x10 Comments mod cueing for pelvic tilt, practice for progressing to quad exercise Prone Exercises Plank Prone Exercise Name front plank, forearms Side bilateral Resistance bodyweight Reps/Minutes 3x15 sec Comments mod cue for shld placement, neutral spine scapion Prone Exercise Name over tball in plank Reps/Minutes 2x10 Comments mod cueing for scap retraction and head placement ext Prone Exercise Name over tball in plank Side bilateral Reps/Minutes 2x10 Comments no pain, mod cueing for scap retraction and head placement Standing Exercises ext Side bilateral Resistance L3 Reps/Minutes 3x8 Comments min cue for head postion Other Exercises Quad Other Exercise Name scapion and ext w/2lb wt Resistance 2 lb Reps/Minutes 2x8 Comments mod cues to maintain neutral spine Manual Therapy Treatment Soft Tissue Mobilization 2 Body Location R lat obliques, QL Mobilization Type Cross-Friction,Sustained Pressure Intensity/Depth Moderate 1 Body Location SA Mobilization Type Strumming,Sustained Pressure Intensity/Depth Deep Body Position Sidelying Comments w/passive motion of R GH, scap and breathing T/S paraspinals Body Location T8-12 R>L Mobilization Type Rolling,Strumming Intensity/Depth Moderate Body Position Sidelying UT, scalenes Body Location R UT, scalenes, SCM Mobilization Type Rolling,Strumming,Sustained Pressure Intensity/Depth Moderate Comments w/scap depression PT-OP-R Modalities Start: 05/02/21 17:07 Freq: Status: Active Protocol: Document 05/24/21 13:37 JG (Rec: 05/24/21 13:55 J [id number]) Hot Pack/Cold Pack Treatment Cold Pack Location R shld Patient Position Supine Treatment Duration (minutes) 10 Patient Tolerance Good PT-OP-T Assessment and Plan Start: 05/02/21 17:07 Freq: Status: Active Protocol: Document 06/01/21 14:24 JG (Rec: 06/01/21 14:33 J [id number]) Physical Therapy Assessment Goals activities Short Term Goal (STG) pt will be able to throw ball for dog w/o inc pain. STG Duration 06/02/21 Floor Nurse Goal (LTG) Pt will be able to lay on R shoulder w/o inc pain LTG Duration 07/03/21 ROM Floor Nurse Goal (LTG) Pt will have equal ROM of RUE to LUE with no pain at end ranges LTG Duration 07/03/20 strength Short Term Goal (STG) Pt will be indep w/HEP STG Duration 06/02/21 Floor Nurse Goal (LTG) pt will score 5/5 on MMT and at least 4/5 EFT in order to allow for improved strength w/ typical activities LTG Duration 07/03/21 Quick Dash Impairment 29.5 Short Term Goal (STG) Pt will score no higher than 20 on quick dash to show imrpoved functional ability. STG Duration 06/02/21 Floor Nurse Goal (LTG) Pt will score no higher than 10 on quick dash to show imrpoved functional ability. LTG Duration 07/03/21 Assessment Summary Assessment Pt continues to fatigue quickly and require mod cueing to maintain postural alignment. Pt was able to progress scapular muscle strengthing in quad w/2lb weights. R scapula musles were less hypertonic today and significant progress was made w/manual therapy for scapular depression. Physical Therapy Plan Frequency and Duration Frequency of Treatment 1-2x/week Duration of Treatment 2 months Plan of Care Start Date 05/03/21 Plan of Care End Date 07/03/21 Next Visit Focus/Plan Next Note Type Treatment Note Next Visit Plan continue prone strengthening, manual therapy to increase pain-free ROM of R shld (pecs, subscap, SA)
--- NOTE | 2021-06-08 18:24 | PT.OTN ---
Current Diagnoses Pain in right shoulder (06/08/21) Muscle weakness (generalized) (06/08/21) Abnormal posture (06/08/21) Physical Therapy Treatment Note PT-OP-A Visit Information Start: 05/02/21 17:07 Freq: Status: Active Protocol: Document 06/08/21 13:07 LALI (Rec: 06/08/21 13:22 Prasanna [id number]) Out-Patient Physical Therapy Visit Information Visit Information Visit Type Treatment Note Visit Note SUNIL Booker was directly supervised by DAVIE López Visit Start Time 09:50 Visit Stop Time 10:30 Total Visit Minutes 40 Visit Number 6 Number of ORTHOPEDIC NURSE PRACTITIONER Visits 0 PT-OP-B Current Condition Start: 05/02/21 17:07 Freq: Status: Active Protocol: Document 05/03/21 09:51 [facility] (Rec: 05/03/21 10:34 [facility] [id number]) Current Condition History of Current Condition Onset Date since surgery Current Complaints R shoulder pain History of Current Condition Pt has had chronic shoulder pain and had surgery around 15 years ago where they cleaned out the joint. Now, he has trouble if he lays with it under him and overhead and has to bring it down w/assist of the other one. He is changing how he throws the eulalia it ball for the dog d/t pain and it still hurts. Golfing doesn' t bother it. 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 A couple years ago, he cervical surgery w/a long recovery for UE strength. Treatment Goals Patient/Caregiver Goals be able to sleep on it, be able to not have it feel like it is after use, be able to throw the dogs ball w/ o pain PT-OP-C Subjective Start: 05/02/21 17:07 Freq: Status: Active Protocol: Document 06/08/21 13:07 LALI (Rec: 06/08/21 13:22 Prasanna [id number]) OP-PT Subjective Patient Comments Patient Comments Pt reports receiving lumbar injection from specialist yesterday. Hasn't noticed any difference yet, may take up to 2 weeks. PT-OP-F Manual Assessment Start: 05/02/21 17:07 Freq: Status: Active Protocol: Document 05/03/21 09:51 [facility] (Rec: 05/03/21 10:34 [facility] [id number]) Manual Assessments Soft Tissue Assessment Soft Tissue Mobility Assessment tightness UT, LS, pec, biceps Joint Mobility Assessment Joint Mobility Assessment 1st rib eelvated R; obvious prior clavicle fracture -old PT-OP-J Posture/Palpation/Skin Start: 05/02/21 17:07 Freq: Status: Active Protocol: Document 05/03/21 09:51 [facility] (Rec: 05/03/21 10:34 [facility] [id number]) Posture Evaluation [facility] Postural Classification System [facility] Postural Classifications Posterior/Anterior Elbow Flexion Test 2 PT-OP-K Range of Motion Start: 05/02/21 17:07 Freq: Status: Active Protocol: Document 05/03/21 09:51 [facility] (Rec: 05/03/21 10:34 [facility] [id number]) Shoulder Goniometric Range of Motion Shoulder Right Active Flexion 141 Extension 42 Abduction 148 External Rotation at 90 degrees 100 Abduction External Rotation at 0 degrees Abduction 70 Internal Rotation Behind Back (text) L1 Comments pain flex, ext, abd, eR Left Active Flexion 148 Extension 65 Abduction 180 External Rotation at 90 degrees 105 Abduction External Rotation at 0 degrees Abduction 80 Internal Rotation Behind Back (text) T6 PT-OP-L Special Tests Start: 05/02/21 17:07 Freq: Status: Active Protocol: Document 05/03/21 09:51 [facility] (Rec: 05/03/21 10:34 [facility] [id number]) Special Tests Shoulder Special Tests radial nerve Test Results positive ulnar nerve Test Results neg median n tension Test Results positive Empty Can Test Results neg Neer Impingement Test Results neg Speed's Biceps Test Results pain but no change for Obriens Sulcus Test Results neg [place] Impingement Test Results positive [place] Test Test Results slight pain but no difference from speeds test AC Joint Compression Test Results neg PT-OP-M Strength Start: 05/02/21 17:07 Freq: Status: Active Protocol: Document 05/03/21 09:51 [facility] (Rec: 05/03/21 10:34 [facility] [id number]) Shoulder Strength Shoulder Manual Muscle Testing Right Flexion 4 Good Extension 4 Good Abduction (C5) 4 Good External Rotation 4 Good Internal Rotation 4 Good Horizontal Abduction 4+ Good+ Horizontal Adduction 4+ Good+ Left Flexion 5 Normal Extension 5 Normal Abduction (C5) 5 Normal External Rotation 5 Normal Internal Rotation 5 Normal Horizontal Abduction 5 Normal Horizontal Adduction 5 Normal PT-OP-Q Treatments Start: 05/02/21 17:07 Freq: Status: Active Protocol: Document 06/08/21 13:07 [facility]ALI (Rec: 06/08/21 13:22 LALI [id number]) Therapeutic Exercises Prone Exercises Plank Prone Exercise Name 1. front plank, forearms, feet 2. side plank, forearms, knees Reps/Minutes 1. 4x30 sec 2. 4x30 sec Comments 1. 2nd two sets w/heel lifts 1 & 2. mod cues for torso rot, core engagement Sidelying Exercises ER Side right Resistance bodyweight Reps/Minutes 2x15 Standing Exercises Scapion Side right Equipment Used 2lb DB Reps/Minutes 2x10 Comments cue for scap control and depression Abd Side right Equipment Used 2 lb DB Reps/Minutes 1x6 Comments discontinued due to pain Other Exercises Quad Other Exercise Name scapion and ext Side right Resistance 2 lb Reps/Minutes 3x10 Comments 2nd 2 sets w/opposite LE extended toe touching ground Manual Therapy Treatment Soft Tissue Mobilization 2 Body Location subscap Mobilization Type Sustained Pressure Intensity/Depth Deep Comments w/passive elevation and depression of scapula 1 Body Location SA Mobilization Type Rolling,Strumming,Sustained Pressure Intensity/Depth Deep Body Position Sidelying Comments w/passive motion of R GH, scap T/S paraspinals Body Location T4-12 R Mobilization Type Rolling,Strumming Intensity/Depth Moderate Body Position Sidelying PT-OP-R Modalities Start: 05/02/21 17:07 Freq: Status: Active Protocol: Document 05/24/21 13:37 [facility]ALI (Rec: 05/24/21 13:55 Prasanna [id number]) Hot Pack/Cold Pack Treatment Cold Pack Location R shld Patient Position Supine Treatment Duration (minutes) 10 Patient Tolerance Good PT-OP-T Assessment and Plan Start: 05/02/21 17:07 Freq: Status: Active Protocol: Document 06/08/21 13:07 LALI (Rec: 06/08/21 13:22 LALI [id number]) Physical Therapy Assessment Goals activities Short Term Goal (STG) pt will be able to throw ball for dog w/o inc pain. STG Duration 06/02/21 Mva Reactor Operator Head Goal (LTG) Pt will be able to lay on R shoulder w/o inc pain LTG Duration 07/03/21 ROM Custodial Goal (LTG) Pt will have equal ROM of RUE to LUE with no pain at end ranges LTG Duration 07/03/20 strength Short Term Goal (STG) Pt will be indep w/HEP STG Duration 06/02/21 Custodial Goal (LTG) pt will score 5/5 on MMT and at least 4/5 EFT in order to allow for improved strength w/ typical activities LTG Duration 07/03/21 Quick Dash Impairment 29.5 Short Term Goal (STG) Pt will score no higher than 20 on quick dash to show imrpoved functional ability. STG Duration 06/02/21 Mva Reactor Operator Head Goal (LTG) Pt will score no higher than 10 on quick dash to show imrpoved functional ability. LTG Duration 07/03/21 Assessment Summary Assessment Pt demostrated improved ability to maintain posture during prone exercises, but still req mod cueing for torso rotation and scapular depression. Pt tolerated standing scapion and sidelying ER with full, painfree ROM and mod cues for scapular depression. After manual therapy, pt's scapula could depress further. Physical Therapy Plan Frequency and Duration Frequency of Treatment 1-2x/week Duration of Treatment 2 months Plan of Care Start Date 05/03/21 Plan of Care End Date 07/03/21 Next Visit Focus/Plan Next Note Type Treatment Note Next Visit Plan continue progressing prone and standing strengthening in painfree ROM, resistance band w/standing scapion, manual therapy to increase pain-free ROM of R shld (pecs, subscap, SA)
--- NOTE | 2021-06-16 12:59 | PT.OTN ---
Current Diagnoses Pain in right shoulder (06/16/21) Muscle weakness (generalized) (06/16/21) Abnormal posture (06/16/21) Physical Therapy Treatment Note PT-OP-A Visit Information Start: 05/02/21 17:07 Freq: Status: Active Protocol: Document 06/16/21 10:09 [facility]I (Rec: 06/16/21 11:17 J [id number]) Out-Patient Physical Therapy Visit Information Visit Information Visit Type Treatment Note Visit Note SUNIL Booker was directly supervised by DAVIE López Visit Start Time 10:35 Visit Stop Time 11:15 Total Visit Minutes 40 Visit Number 7 Number of FIBRE OPTICS JOINTER Visits 0 PT-OP-B Current Condition Start: 05/02/21 17:07 Freq: Status: Active Protocol: Document 05/03/21 09:51 [facility] (Rec: 05/03/21 10:34 [facility] [id number]) Current Condition History of Current Condition Onset Date since surgery Current Complaints R shoulder pain History of Current Condition Pt has had chronic shoulder pain and had surgery around 15 years ago where they cleaned out the joint. Now, he has trouble if he lays with it under him and overhead and has to bring it down w/assist of the other one. He is changing how he throws the eulalia it ball for the dog d/t pain and it still hurts. Golfing doesn' t bother it. 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 A couple years ago, he cervical surgery w/a long recovery for UE strength. Treatment Goals Patient/Caregiver Goals be able to sleep on it, be able to not have it feel like it is after use, be able to throw the dogs ball w/ o pain PT-OP-C Subjective Start: 05/02/21 17:07 Freq: Status: Active Protocol: Document 06/16/21 10:09 Prasanna (Rec: 06/16/21 11:17 [id number]) OP-PT Subjective Patient Comments Patient Comments Pt reports that he is spending a lot of time in the garage playing guitar and smoking cigars. His R low back is hurting. PT-OP-F Manual Assessment Start: 05/02/21 17:07 Freq: Status: Active Protocol: Document 05/03/21 09:51 [facility] (Rec: 05/03/21 10:34 [facility] [id number]) Manual Assessments Soft Tissue Assessment Soft Tissue Mobility Assessment tightness UT, LS, pec, biceps Joint Mobility Assessment Joint Mobility Assessment 1st rib eelvated R; obvious prior clavicle fracture -old PT-OP-J Posture/Palpation/Skin Start: 05/02/21 17:07 Freq: Status: Active Protocol: Document 05/03/21 09:51 [facility] (Rec: 05/03/21 10:34 [facility] [id number]) Posture Evaluation [facility] Postural Classification System [facility] Postural Classifications Posterior/Anterior Elbow Flexion Test 2 PT-OP-K Range of Motion Start: 05/02/21 17:07 Freq: Status: Active Protocol: Document 05/03/21 09:51 [facility] (Rec: 05/03/21 10:34 [facility] [id number]) Shoulder Goniometric Range of Motion Shoulder Right Active Flexion 141 Extension 42 Abduction 148 External Rotation at 90 degrees 100 Abduction External Rotation at 0 degrees Abduction 70 Internal Rotation Behind Back (text) L1 Comments pain flex, ext, abd, eR Left Active Flexion 148 Extension 65 Abduction 180 External Rotation at 90 degrees 105 Abduction External Rotation at 0 degrees Abduction 80 Internal Rotation Behind Back (text) T6 PT-OP-L Special Tests Start: 05/02/21 17:07 Freq: Status: Active Protocol: Document 05/03/21 09:51 [facility] (Rec: 05/03/21 10:34 [facility] [id number]) Special Tests Shoulder Special Tests radial nerve Test Results positive ulnar nerve Test Results neg median n tension Test Results positive Empty Can Test Results neg Neer Impingement Test Results neg Speed's Biceps Test Results pain but no change for Obriens Sulcus Test Results neg [place] Impingement Test Results positive [place] Test Test Results slight pain but no difference from speeds test AC Joint Compression Test Results neg PT-OP-M Strength Start: 05/02/21 17:07 Freq: Status: Active Protocol: Document 05/03/21 09:51 [facility] (Rec: 05/03/21 10:34 [facility] [id number]) Shoulder Strength Shoulder Manual Muscle Testing Right Flexion 4 Good Extension 4 Good Abduction (C5) 4 Good External Rotation 4 Good Internal Rotation 4 Good Horizontal Abduction 4+ Good+ Horizontal Adduction 4+ Good+ Left Flexion 5 Normal Extension 5 Normal Abduction (C5) 5 Normal External Rotation 5 Normal Internal Rotation 5 Normal Horizontal Abduction 5 Normal Horizontal Adduction 5 Normal PT-OP-Q Treatments Start: 05/02/21 17:07 Freq: Status: Active Protocol: Document 06/16/21 10:09 [facility]I (Rec: 06/16/21 11:17 JAnny [id number]) Therapeutic Exercises Supine Exercises Pelvic Tilt Supine Exercise Name w/ R shld flex from 90 Reps/Minutes 2x10 Prone Exercises Plank Prone Exercise Name hands and knees w/ue reach Reps/Minutes 2x20 sec scapion Prone Exercise Name over tball in plank Reps/Minutes 1x15 Comments mod cueing for scap retraction and head placement ext Prone Exercise Name over tball in plank Side bilateral Reps/Minutes 1x15 Comments no pain, mod cueing for scap retraction and head placement Sidelying Exercises ER Side right Resistance 3# Reps/Minutes 2x12 Plank Sidelying Exercise Name side plank, w/ER Resistance bodyweight Reps/Minutes 4x12 ER Other Exercises Quad Other Exercise Name scapion and ext Side right Resistance 3 lb Reps/Minutes 3x10 Comments 2nd 2 sets w/opposite LE extended toe touching ground Manual Therapy Treatment Soft Tissue Mobilization Pectorals Body Location R Mobilization Type Oscillations,Sustained Pressure Intensity/Depth Moderate Body Position Supine Comments 1. Pec major: Sustained pressure while SPT brought into passive, pain-free ER 2. Pec minor: sustained pressure while SPT sterling into passive, pain-free abd T/S paraspinals Body Location T2-T8 R Mobilization Type Rolling,Strumming,Sustained Pressure Intensity/Depth Moderate Body Position Sidelying PT-OP-R Modalities Start: 05/02/21 17:07 Freq: Status: Active Protocol: Document 05/24/21 13:37 JAnny (Rec: 05/24/21 13:55 Prasanna [id number]) Hot Pack/Cold Pack Treatment Cold Pack Location R shld Patient Position Supine Treatment Duration (minutes) 10 Patient Tolerance Good PT-OP-T Assessment and Plan Start: 05/02/21 17:07 Freq: Status: Active Protocol: Document 06/16/21 10:09 [facility] (Rec: 06/16/21 11:17 LALI [id number]) Physical Therapy Assessment Goals activities Short Term Goal (STG) pt will be able to throw ball for dog w/o inc pain. STG Duration 06/02/21 Longterm Goal (LTG) Pt will be able to lay on R shoulder w/o inc pain LTG Duration 07/03/21 ROM Longterm Goal (LTG) Pt will have equal ROM of RUE to LUE with no pain at end ranges LTG Duration 07/03/20 strength Short Term Goal (STG) Pt will be indep w/HEP STG Duration 06/02/21 Professor Of Mathematics Goal (LTG) pt will score 5/5 on MMT and at least 4/5 EFT in order to allow for improved strength w/ typical activities LTG Duration 07/03/21 Quick Dash Impairment 29.5 Short Term Goal (STG) Pt will score no higher than 20 on quick dash to show imrpoved functional ability. STG Duration 06/02/21 Professor Of Mathematics Goal (LTG) Pt will score no higher than 10 on quick dash to show imrpoved functional ability. LTG Duration 07/03/21 Assessment Summary Assessment Pt has improved ability to maintain posture, but continues to fatigue relatively quickly. Pt did well with progression of standing exercise, but req mod cues to not push head forward and arch low back. Manual therapy improved pt's abd ROM, ER ROM, and scapular depression. Physical Therapy Plan Frequency and Duration Frequency of Treatment 1-2x/week Duration of Treatment 2 months Plan of Care Start Date 05/03/21 Plan of Care End Date 07/03/21 Next Visit Focus/Plan Next Note Type Treatment Note Next Visit Plan prone, standing shld strengthening and ROM. Endurance of shld strength. MT to posterior shld soft tissue .
--- NOTE | 2021-06-21 13:06 | PT.OTN ---
Current Diagnoses Pain in right shoulder (06/21/21) Muscle weakness (generalized) (06/21/21) Abnormal posture (06/21/21) Physical Therapy Treatment Note PT-OP-A Visit Information Start: 05/02/21 17:07 Freq: Status: Active Protocol: Document 06/21/21 09:50 JG (Rec: 06/21/21 10:06 J [id number]) Out-Patient Physical Therapy Visit Information Visit Information Visit Type Treatment Note Visit Note SUNIL Booker was directly supervised by DAVIE López Visit Start Time 09:50 Visit Stop Time 10:30 Total Visit Minutes 40 Visit Number 8 Number of MANAGER PRODUCTION Visits 0 PT-OP-B Current Condition Start: 05/02/21 17:07 Freq: Status: Active Protocol: Document 05/03/21 09:51 [facility] (Rec: 05/03/21 10:34 [facility] [id number]) Current Condition History of Current Condition Onset Date since surgery Current Complaints R shoulder pain History of Current Condition Pt has had chronic shoulder pain and had surgery around 15 years ago where they cleaned out the joint. Now, he has trouble if he lays with it under him and overhead and has to bring it down w/assist of the other one. He is changing how he throws the eulalia it ball for the dog d/t pain and it still hurts. Golfing doesn' t bother it. 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 A couple years ago, he cervical surgery w/a long recovery for UE strength. Treatment Goals Patient/Caregiver Goals be able to sleep on it, be able to not have it feel like it is after use, be able to throw the dogs ball w/ o pain PT-OP-C Subjective Start: 05/02/21 17:07 Freq: Status: Active Protocol: Document 06/21/21 09:50 JG (Rec: 06/21/21 10:06 J [id number]) OP-PT Subjective Patient Comments Patient Comments Pt states that shld feels the same, but has pinpoint pain in R deltoid PT-OP-F Manual Assessment Start: 05/02/21 17:07 Freq: Status: Active Protocol: Document 05/03/21 09:51 [facility] (Rec: 05/03/21 10:34 [facility] [id number]) Manual Assessments Soft Tissue Assessment Soft Tissue Mobility Assessment tightness UT, LS, pec, biceps Joint Mobility Assessment Joint Mobility Assessment 1st rib eelvated R; obvious prior clavicle fracture -old PT-OP-J Posture/Palpation/Skin Start: 05/02/21 17:07 Freq: Status: Active Protocol: Document 05/03/21 09:51 [facility] (Rec: 05/03/21 10:34 [facility] [id number]) Posture Evaluation [facility] Postural Classification System [facility] Postural Classifications Posterior/Anterior Elbow Flexion Test 2 PT-OP-K Range of Motion Start: 05/02/21 17:07 Freq: Status: Active Protocol: Document 05/03/21 09:51 [facility] (Rec: 05/03/21 10:34 [facility] [id number]) Shoulder Goniometric Range of Motion Shoulder Right Active Flexion 141 Extension 42 Abduction 148 External Rotation at 90 degrees 100 Abduction External Rotation at 0 degrees Abduction 70 Internal Rotation Behind Back (text) L1 Comments pain flex, ext, abd, eR Left Active Flexion 148 Extension 65 Abduction 180 External Rotation at 90 degrees 105 Abduction External Rotation at 0 degrees Abduction 80 Internal Rotation Behind Back (text) T6 PT-OP-L Special Tests Start: 05/02/21 17:07 Freq: Status: Active Protocol: Document 05/03/21 09:51 [facility] (Rec: 05/03/21 10:34 [facility] [id number]) Special Tests Shoulder Special Tests radial nerve Test Results positive ulnar nerve Test Results neg median n tension Test Results positive Empty Can Test Results neg Neer Impingement Test Results neg Speed's Biceps Test Results pain but no change for Obriens Sulcus Test Results neg [place] Impingement Test Results positive [place] Test Test Results slight pain but no difference from speeds test AC Joint Compression Test Results neg PT-OP-M Strength Start: 05/02/21 17:07 Freq: Status: Active Protocol: Document 05/03/21 09:51 [facility] (Rec: 05/03/21 10:34 [facility] [id number]) Shoulder Strength Shoulder Manual Muscle Testing Right Flexion 4 Good Extension 4 Good Abduction (C5) 4 Good External Rotation 4 Good Internal Rotation 4 Good Horizontal Abduction 4+ Good+ Horizontal Adduction 4+ Good+ Left Flexion 5 Normal Extension 5 Normal Abduction (C5) 5 Normal External Rotation 5 Normal Internal Rotation 5 Normal Horizontal Abduction 5 Normal Horizontal Adduction 5 Normal PT-OP-Q Treatments Start: 05/02/21 17:07 Freq: Status: Active Protocol: Document 06/21/21 09:50 JG (Rec: 06/21/21 10:06 JG [id number]) Therapeutic Exercises Prone Exercises oli pose Prone Exercise Name fwd Reps/Minutes 2x30 sec Plank Prone Exercise Name downdog<>plank Reps/Minutes 2x90 sec Comments max cue for scap control and position ext Prone Exercise Name over tball in plank Side bilateral Reps/Minutes 1x15 Comments no pain, mod cueing for scap retraction and head placement Sidelying Exercises Plank Sidelying Exercise Name side plank w/horizontal abd<> add (reaching under torso<> towards ceiling) Side bilateral Resistance bodyweight Reps/Minutes 2x12 Comments mod cue for scap movement during abd<>add Manual Therapy Treatment Soft Tissue Mobilization 1 Body Location R deltoid Mobilization Type Cross-Friction,Oscillations, Strumming,Sustained Pressure Intensity/Depth Moderate Body Position Sidelying T/S paraspinals Body Location R rhomboids, paraspinals Mobilization Type Rolling,Strumming,Sustained Pressure Intensity/Depth Moderate Body Position Sidelying UT, scalenes Body Location R UT Mobilization Type Oscillations,Rolling,Strumming ,Sustained Pressure Intensity/Depth Moderate Body Position Sidelying PT-OP-R Modalities Start: 05/02/21 17:07 Freq: Status: Active Protocol: Document 05/24/21 13:37 JG (Rec: 05/24/21 13:55 JG [id number]) Hot Pack/Cold Pack Treatment Cold Pack Location R shld Patient Position Supine Treatment Duration (minutes) 10 Patient Tolerance Good PT-OP-T Assessment and Plan Start: 05/02/21 17:07 Freq: Status: Active Protocol: Document 06/21/21 09:50 JG (Rec: 06/21/21 10:37 JG [id number]) Physical Therapy Assessment Goals activities Short Term Goal (STG) pt will be able to throw ball for dog w/o inc pain. STG Duration 06/02/21 Track And Field Coach Goal (LTG) Pt will be able to lay on R shoulder w/o inc pain LTG Duration 07/03/21 ROM Halfway Goal (LTG) Pt will have equal ROM of RUE to LUE with no pain at end ranges LTG Duration 07/03/20 strength Short Term Goal (STG) Pt will be indep w/HEP STG Duration 06/02/21 Track And Field Coach Goal (LTG) pt will score 5/5 on MMT and at least 4/5 EFT in order to allow for improved strength w/ typical activities LTG Duration 07/03/21 Quick Dash Impairment 29.5 Short Term Goal (STG) Pt will score no higher than 20 on quick dash to show imrpoved functional ability. STG Duration 06/02/21 Halfway Goal (LTG) Pt will score no higher than 10 on quick dash to show imrpoved functional ability. LTG Duration 07/03/21 Assessment Summary Assessment Pt had increased R shld pain today w/soft tissue knot in R deltoid and increased tone in UT and rhomboids. Pt demostrated improved scapular control during ther ex but still req min-mod cueing. Manual therapy significantly reduced tone in deltoids, UT, and rhomboids. Physical Therapy Plan Frequency and Duration Frequency of Treatment 1-2x/week Duration of Treatment 2 months Plan of Care Start Date 05/03/21 Plan of Care End Date 07/03/21 Next Visit Focus/Plan Next Note Type Treatment Note Next Visit Plan review HEP as pt is moving to [place] soon. Progress endurance and postural exercises. MT to maintain reduced scapular and shld muscle tone and increase painfree motion.
--- NOTE | 2021-09-26 08:06 | PT.OPDS ---
Current Diagnoses Pain in right shoulder (06/21/21) Muscle weakness (generalized) (06/21/21) Abnormal posture (06/21/21) Visit Care Team Role Provider Type Darnell Quintanilla DO Primary Care Provider Physician Specialty: [facility] Address: [address] [place] [address], [id number] Email: [email or web address] VALERY Alcantara Attending Provider Advanced Disability Attorney Referring Provider Specialty: [facility] Address: [address] [place] [address], [id number] Email: [email or web address] Visit Number Visit Number 8 Discharge Summary PT-OP-B Current Condition Start: 05/02/21 17:07 Freq: Status: Active Protocol: Document 05/03/21 09:51 LR (Rec: 05/03/21 10:34 [facility] [id number]) Current Condition History of Current Condition Onset Date since surgery Current Complaints R shoulder pain History of Current Condition Pt has had chronic shoulder pain and had surgery around 15 years ago where they cleaned out the joint. Now, he has trouble if he lays with it under him and overhead and has to bring it down w/assist of the other one. He is changing how he throws the eulalia it ball for the dog d/t pain and it still hurts. Golfing doesn' t bother it. 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 A couple years ago, he cervical surgery w/a long recovery for UE strength. Treatment Goals Patient/Caregiver Goals be able to sleep on it, be able to not have it feel like it is after use, be able to throw the dogs ball w/ o pain PT-OP-C Subjective Start: 05/02/21 17:07 Freq: Status: Active Protocol: Document 06/21/21 09:50 JG (Rec: 06/21/21 10:06 JG [id number]) OP-PT Subjective Patient Comments Patient Comments Pt states that shld feels the same, but has pinpoint pain in R deltoid PT-OP-F Manual Assessment Start: 05/02/21 17:07 Freq: Status: Active Protocol: Document 05/03/21 09:51 [facility] (Rec: 05/03/21 10:34 [facility] [id number]) Manual Assessments Soft Tissue Assessment Soft Tissue Mobility Assessment tightness UT, LS, pec, biceps Joint Mobility Assessment Joint Mobility Assessment 1st rib eelvated R; obvious prior clavicle fracture -old PT-OP-J Posture/Palpation/Skin Start: 05/02/21 17:07 Freq: Status: Active Protocol: Document 05/03/21 09:51 [facility] (Rec: 05/03/21 10:34 [facility] [id number]) Posture Evaluation [facility] Postural Classification System [facility] Postural Classifications Posterior/Anterior Elbow Flexion Test 2 PT-OP-K Range of Motion Start: 05/02/21 17:07 Freq: Status: Active Protocol: Document 05/03/21 09:51 [facility] (Rec: 05/03/21 10:34 [facility] [id number]) Shoulder Goniometric Range of Motion Shoulder Right Active Flexion 141 Extension 42 Abduction 148 External Rotation at 90 degrees 100 Abduction External Rotation at 0 degrees Abduction 70 Internal Rotation Behind Back (text) L1 Comments pain flex, ext, abd, eR Left Active Flexion 148 Extension 65 Abduction 180 External Rotation at 90 degrees 105 Abduction External Rotation at 0 degrees Abduction 80 Internal Rotation Behind Back (text) T6 PT-OP-L Special Tests Start: 05/02/21 17:07 Freq: Status: Active Protocol: Document 05/03/21 09:51 [facility] (Rec: 05/03/21 10:34 [facility] [id number]) Special Tests Shoulder Special Tests radial nerve Test Results positive ulnar nerve Test Results neg median n tension Test Results positive Empty Can Test Results neg Neer Impingement Test Results neg Speed's Biceps Test Results pain but no change for Obriens Sulcus Test Results neg [place] Impingement Test Results positive [place] Test Test Results slight pain but no difference from speeds test AC Joint Compression Test Results neg PT-OP-M Strength Start: 05/02/21 17:07 Freq: Status: Active Protocol: Document 05/03/21 09:51 [facility] (Rec: 05/03/21 10:34 [facility] [id number]) Shoulder Strength Shoulder Manual Muscle Testing Right Flexion 4 Good Extension 4 Good Abduction (C5) 4 Good External Rotation 4 Good Internal Rotation 4 Good Horizontal Abduction 4+ Good+ Horizontal Adduction 4+ Good+ Left Flexion 5 Normal Extension 5 Normal Abduction (C5) 5 Normal External Rotation 5 Normal Internal Rotation 5 Normal Horizontal Abduction 5 Normal Horizontal Adduction 5 Normal PT-OP-T Assessment and Plan Start: 05/02/21 17:07 Freq: Status: Active Protocol: Document 09/26/21 08:05 [facility] (Rec: 09/26/21 08:06 [facility] [id number]) Physical Therapy Assessment Goals activities Short Term Goal (STG) pt will be able to throw ball for dog w/o inc pain. STG Duration 06/02/21 Fpc Goal (LTG) Pt will be able to lay on R shoulder w/o inc pain LTG Duration 07/03/21 ROM Ocularist Goal (LTG) Pt will have equal ROM of RUE to LUE with no pain at end ranges LTG Duration 07/03/20 strength Short Term Goal (STG) Pt will be indep w/HEP STG Duration 06/02/21 Ocularist Goal (LTG) pt will score 5/5 on MMT and at least 4/5 EFT in order to allow for improved strength w/ typical activities LTG Duration 07/03/21 Quick Dash Impairment 29.5 Short Term Goal (STG) Pt will score no higher than 20 on quick dash to show imrpoved functional ability. STG Duration 06/02/21 Fpc Goal (LTG) Pt will score no higher than 10 on quick dash to show imrpoved functional ability. LTG Duration 07/03/21 Assessment Summary Assessment pt's last visit was cancelled d/t the and pt was doing well with HEP. He planned to take a break from PT into new year d/t change in insurance. Pt did not call to schedule further and has not been seen for 3 months. DC at this time. Physical Therapy Plan Discharge Physical Therapy Discharge Reasons No Longer Attending PT
== END 2021-09-27 08:45 ==
LOC: PHYS 09:45
PROVIDERS: PCP Family Medicine; Referring Provider Nurse Practitioner; Visit Provider Nurse Practitioner
DX: M25.511 Pain in right shoulder (principal); M62.81 Muscle weakness (generalized); R29.3 Abnormal posture
CPT/HCPCS: 97110; 97140; 97162